=== PATIENT | male | born 1965 | race Two or more races ===

== ENCOUNTER 2016-07-15 04:29 | Inpatient (IN) | payer BC ==
[~2016-07-15] VITALS: Ht 170.2 cm; Wt 59.0 kg
[2016-07-15] MEDS ORDERED: DEXTROSE 50% 25 GM / 50ML DISP.SYRIN. IV ONE (05:15)
[2016-07-15 05:29] LABS: BASO % 1 % (0-3); EOS % 4 % (0-3); HEMATOCRIT 30.3 % (39.0-53.0); HEMOGLOBIN 10.6 g/dL (13.0-17.5); LYMPH # 1.5 x10^3/uL (1.0-4.8); LYMPH % 35 % (24-48); MEAN CORPUSCULAR HEMOGLOBIN 30 pg (25-35); MEAN CORPUSCULAR HGB CONC 35 g/dL (31-37); MEAN CORPUSCULAR VOLUME 87 fL (79-100); MONO % 12 % (0-9); NEUT % 49 % (31-73); PLATELET COUNT 202 x10^3/uL (140-400); RED BLOOD COUNT 3.49 x10^6/uL (4.30-5.70); RED CELL DISTRIBUTION WIDTH 13.8 % (11.5-14.5); WHITE BLOOD COUNT 4.3 x10^3/uL (4.0-11.0)
[2016-07-15 05:41] LABS: CALCIUM 9.5 mg/dL (8.5-10.1); CREATININE 2.8 mg/dL (0.7-1.3); GFR 24.2; POTASSIUM 3.8 mmol/L (3.5-5.1)
--- NOTE | 2016-07-15 05:44 | RAD ---
INDICATION: Headache COMPARISON: None TECHNIQUE: Axial CT images obtained through the head. One or more of the following individualized dose reduction techniques were utilized for this examination: 1. Automated exposure control; 2. Adjustment of the mA and/or kV according to patient size; 3. Use of iterative reconstruction technique. FINDINGS: No midline shift. Ventricles and sulci within normal limits in size for the patients age. Basilar cistern patent. No gross hemorrhage or intracranial mass. No displaced skull fracture. Postoperative changes to the left orbital region with postoperative appearance of the globe. IMPRESSION: No acute intracranial hemorrhage. Partial opacification of mastoid air cells. Postoperative appearance of the left orbital region. Electronically signed by: Marvin King (Jul 15, 2016 05:42:35)
[2016-07-15 05:47] LABS: ALBUMIN 3.7 g/dL (3.4-5.0); ALBUMIN/GLOBULIN RATIO 0.7 (1.0-1.7); TOTAL BILIRUBIN 0.4 mg/dL (0.2-1.0); TOTAL PROTEIN 9.2 g/dL (6.4-8.2)
[2016-07-15] MEDS ORDERED: ONDANSETRON PF 4 MG/2 ML VIAL. IV ONE (06:00)
[2016-07-15] MEDS ORDERED: IV NORMAL SALINE 1000ML BAG 1,000 ML IV ONE (06:00)
[2016-07-15] MEDS ORDERED: CLONIDINE HCL 0.1 MG TABLET PO ONE (06:00)
[2016-07-15] MEDS ORDERED: HYDROMORPHONE 2 MG/ML VIAL. IV ONE (06:00)
--- NOTE | 2016-07-15 06:38 | PHYS DOC ---
Past Medical History Past Medical History: Diabetes-Type I, Hypertension, Renal Failure Past Surgical History: Other Additional Past Surgical Histo: KIDNEY TRANSPLANT, DIALYSIS CATHETER, DOUBLE BKA Alcohol Use: None Drug Use: None Adult General Chief Complaint Chief Complaint: HEADACHE HPI HPI Patient is a 51 year old gentleman with a history significant for coronary artery disease, hypertension, diabetes, end-stage renal disease, status post renal transplant who presents to the ER today complaining of waking up with a severe headache prior to arrival with a low blood sugar. Patient reports he is a insulin-dependent diabetic and has a insulin pump on. Patient reports that the pain is isolated to the left side of his head only. Patient reports that he' s had headaches in the past however never ones that are isolated only to his left side. Patient denies any double vision or blurred vision. 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 Patient denies any fevers shakes chills cough or URI symptoms. Patient denies any diarrhea. Patient has any chest pain or shortness of breath. Patient has any abdominal pain. Patient denies any dysuria frequency or urgency. Patient reports she's had nausea vomiting 15 and last day. Patient reports prior to going to sleep last night his blood pressure 138/84. Patient's blood pressure today upon arrival was 210/104. Upon my evaluation of the patient's blood pressure was 226/104. Patient reports that he's recently had deterioration of his transplanted kidney and he currently goes to dialysis every Sunday. Patient's physical exam and the ER was remarkable for discomfort to palpation to his left scalp. Patient's right eye revealed no funduscopic abnormalities. She had a left prosthetic eye. Patient's blood pressure was 226/104. Patient's lungs were clear. There is no wheezing rales or rhonchi. Patient's heart exam is regular rate. Patient had no peripheral edema. Patient's abdomen was soft nontender no rebound or guarding. Patient's ER hospital course was significant for getting a CT scan of his head pressure that show any acute pathology. Patient's labs were all within normal limits. Patient does have an elevated BUN/creatinine however this appears to be his new baseline. Patient was given Dilaudid and Zofran in the ER as well as clonidine 0.1 mg by mouth. Given the patient's severely elevated blood pressure and his renal transplant history as well as his headache patient will be admitted to the hospital for further evaluation. Patient will need further control of his blood pressure in the hospital. Options were discussed with the family as well as the patient and they're in complete agreement with the current plan to be admitted. I discussed the case with Dr. Pop who is agreeing to admit the patient for further evaluation and management of his hypertension and headache. Review of Systems Review of Systems Constitutional: Denies fever or chills [] Eyes: Denies change in visual acuity, redness, or eye pain [] Acosta other REVIEW of systems are negative except as documented in the history of present illness portion. Current Medications Current Medications Current Medications Medications (Trade) Dose Ordered Sig/Penelope Start Time Stop Time Status Last Admin Dose Admin Clonidine HCl (Catapres) 0.1 mg 1X ONCE 07/15/16 06:00 07/15/16 06:01 DC 07/15/16 05:59 0.1 MG Dextrose (Dextrose 50%-Water Syringe) 25 gm 1X ONCE 07/15/16 05:15 07/15/16 05:22 DC 07/15/16 05:15 25 GM Hydromorphone HCl 1 mg 1 mg 1X ONCE 07/15/16 06:00 07/15/16 06:01 DC 07/15/16 05:58 1 MG Ondansetron HCl (Zofran) 4 mg 1X ONCE 07/15/16 06:00 07/15/16 06:01 DC 07/15/16 05:58 4 MG Sodium Chloride (Iv Sodium Chloride 0.9% 1000ml Bag) 1,000 ml @ 1,000 mls/hr 1X ONCE 07/15/16 06:00 07/15/16 06:59 07/15/16 05:57 1,000 MLS/HR Allergies Allergies Allergies Coded Allergies Type Severity Reaction Last Updated Verified amoxicillin Allergy Intermediate 07/15/16 Yes latex Allergy Intermediate 07/15/16 Yes promethazine Allergy Intermediate 07/15/16 Yes succinylcholine Allergy Intermediate 07/15/16 Yes Physical Exam Physical Exam Constitutional: Well developed, well nourished, no acute distress, non-toxic appearance. [] HENT: Normocephalic, atraumatic, bilateral external ears normal, oropharynx moist, no oral exudates, nose normal. [] Cardiovascular:Heart rate regular rhythm, Lungs & Thorax: Bilateral breath sounds clear to auscultation [] Abdomen: Bowel sounds normal, soft, no tenderness, no masses, no pulsatile masses. [] Skin: Warm, dry, no erythema, no rash. [] Back: No tenderness, no CVA tenderness. [] Extremities: No tenderness, no cyanosis, no clubbing, ROM intact, no edema. [] Neurologic: Alert and oriented X 3, normal motor function, normal sensory function, no focal deficits noted. [] Psychologic: Affect normal, judgement normal, mood normal. [] Current Patient Data Vital Signs Vital Signs Date Time Temp Pulse Resp B/P Pulse Ox O2 Delivery O2 Flow Rate FiO2 07/15/16 05:59 83 226/104 07/15/16 04:53 97.1 20 100 Room Air 97.1 Lab Values Laboratory Tests Test 07/15/16 04:58 07/15/16 05:07 Glucose (Fingerstick) 69mg/dL (70-99) L White Blood Count 4.3x10^3/uL (4.0-11.0) Red Blood Count 3.49x10^6/uL (4.30-5.70) L Hemoglobin 10.6g/dL (13.0-17.5) L Hematocrit 30.3% (39.0-53.0) L Mean Corpuscular Volume 87fL (79-100) Mean Corpuscular Hemoglobin 30pg (25-35) Mean Corpuscular Hemoglobin Concent 35g/dL (31-37) Red Cell Distribution Width 13.8% (11.5-14.5) Platelet Count 202x10^3/uL (140-400) Neutrophils (%) (Auto) 49% (31-73) Lymphocytes (%) (Auto) 35% (24-48) Monocytes (%) (Auto) 12% (0-9) H Eosinophils (%) (Auto) 4% (0-3) H Basophils (%) (Auto) 1% (0-3) Neutrophils # (Auto) 2.1x10^3uL (1.8-7.7) Lymphocytes # (Auto) 1.5x10^3/uL (1.0-4.8) Monocytes # (Auto) 0.5x10^3/uL (0.0-1.1) Eosinophils # (Auto) 0.2x10^3/uL (0.0-0.7) Basophils # (Auto) 0.0x10^3/uL (0.0-0.2) Sodium Level 136mmol/L (136-145) Potassium Level 3.8mmol/L (3.5-5.1) Chloride Level 97mmol/L (98-107) L Carbon Dioxide Level 30mmol/L (21-32) Anion Gap 9 (6-14) Blood Urea Nitrogen 39mg/dL (8-26) H Creatinine 2.8mg/dL (0.7-1.3) H Estimated GFR (Cockcroft-Gault) 24.2 BUN/Creatinine Ratio 14 (6-20) Glucose Level 78mg/dL (70-99) Calcium Level 9.5mg/dL (8.5-10.1) Total Bilirubin 0.4mg/dL (0.2-1.0) Aspartate Amino Transferase (AST) 17U/L (15-37) Alanine Aminotransferase (ALT) 19U/L (16-63) Alkaline Phosphatase 199U/L (46-116) H Total Protein 9.2g/dL (6.4-8.2) H Albumin 3.7g/dL (3.4-5.0) Albumin/Globulin Ratio 0.7 (1.0-1.7) L Laboratory Tests 07/15/16 05:07 Laboratory Tests 07/15/16 05:07 EKG EKG [] Radiology/Procedures Radiology/Procedures [] Course & Med Decision Making Course & Med Decision Making Pertinent Labs and Imaging studies reviewed. (See chart for details) [] Dragon Disclaimer Dragon Disclaimer This electronic medical record was generated, in whole or in part, using a voice recognition dictation system. Departure Departure Impression: Primary Impression: Hypertension Additional Impressions: Renal failure Headache Hypoglycemia Disposition: 09 ADMITTED INPATIENT Admitting Physician: Other (reusch) Condition: GUARDED Referrals: UNKNOWN PCP NAME (PCP) Problem Qualifiers LILIA VERGARA MD Jul 15, 2016 06:38
[2016-07-15] MEDS ORDERED: ONDANSETRON PF 4 MG/2 ML VIAL. IV PRN (06:45)
[2016-07-15] MEDS ORDERED: ACETAMINOPHEN 325 MG TABLET. PO PRN (06:45)
[2016-07-15] MEDS: MORPHINE SULFATE 4 MG/ML DISP.SYRIN. IV PRN ×2 (08:40→10:33)
[2016-07-15 09:44] VITALS: BP 183/86
[2016-07-15 09:48] VITALS: BP 186/58
[2016-07-15] MEDS ORDERED: PANT20TA3 PO (10:41)
[2016-07-15] MEDS ORDERED: CARV25TA2 PO ×2 (10:41)
[2016-07-15] MEDS ORDERED: HYDR12.53 PO (10:41)
[2016-07-15] MEDS ORDERED: MYCO250C PO (10:41)
[2016-07-15] MEDS ORDERED: TACR1CAP4 PO (10:41)
[2016-07-15] MEDS ORDERED: CLON0.2T PO (10:53)
--- NOTE | 2016-07-15 11:12 | ACF ---
Admit Criteria Forms Admit Criteria Forms Admit Criteria Forms HYPERTENSION Clinical Indications for Admission to Inpatient Care ( Place "X" for any and all applicable criteria): Admission is indicated for ANY ONE of the following(1)(2)(3)(4): [ ]I. Hypertensive emergency, with evidence of acute and progressing target organ disease as indicated by ANY ONE of the following: [ ]a) Hypertensive encephalopathy (eg, confusion, altered mental status) [ ]b) Cerebral infarction [ ]c) Intracranial hemorrhage [ ]d) Myocardial ischemia or infarction [ ]e) Pulmonary edema [ ]f) Aortic dissection [ ]g) Seizure [ ]h) Acute renal insufficiency [ ]i) Papilledema [ ]j) Microangiopathic hemolytic anemia [ ]II. Adrenergic crisis (eg, severe hypertension due to pheochromocytoma crisis, cocaine or amphetamine intoxication, or clonidine withdrawal) [X]III. Severe hypertension (SBP greater than 180 mmHg or DBP greater than 110 mmHg or greater than the 95th percentile for age, gender, and height in pediatric patients) that cannot be controlled (eg, to SBP less than 160 mmHg and DBP less than 100 mmHg in adults) by treatment with oral medication in emergency department or observation care Extended stay beyond goal length of stay may be needed for(11)(12)(13): [ ]a) Persistent hypertensive encephalopathy [ ]b) Continuation of pulmonary edema [ ]c) Recurring or persistent severe hypertension [ ]d) Target organ damage (eg, angina, stroke, aortic dissection) [ ]e) Associated renal insufficiency The original [employer] content created by [employer] has been revised. The portions of the content which have been revised are identified through the use of italic text or in bold, and [facility] has neither reviewed nor approved the modified material. All other unmodified content is copyright [employer]. Please see references footnoted in the original [employer] edition 2016 JARVIS MASON Jul 15, 2016 11:12
[2016-07-15 11:19] VITALS: BP 149/82
[2016-07-15] MEDS ORDERED: CLOP75TA PO (11:52)
--- NOTE | 2016-07-15 12:23 | EKG ---
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
[2016-07-15] MEDS ORDERED: OXYCODONE/APAP 5/325 TABLET. PO PRN (14:15)
[2016-07-15] MEDS ORDERED: AMLODIPINE BESYLATE 5 MG TABLET. PO SCH (14:15)
[2016-07-15] MEDS ORDERED: CLONIDINE TTS-3 PATCH. TD SCH (14:15)
[2016-07-15] MEDS ORDERED: OXYC1TAB7 PO (14:51)
[2016-07-15] MEDS ORDERED: AMLO10TA4 PO (14:51)
[2016-07-15] MEDS ORDERED: CLON1PAT3 TD (14:51)
[2016-07-15 15:00] VITALS: BP 165/72
[2016-07-15 15:19] VITALS: BP 165/72
--- NOTE | 2016-07-16 09:42 | CONS ---
DATE OF CONSULTATION: REQUESTING PHYSICIAN: Hospitalist. REASON FOR CONSULTATION: Renal failure. HISTORY OF PRESENT ILLNESS: This 51-year-old gentleman with history of diabetes mellitus, hypertension, and chronic kidney disease. The patient is status post renal transplantation. He did however develop acute renal failure and has been dialysis dependent. He has been showing signs of recovering with plans for further evaluation of the same. The patient presented to the hospital with increasing headache and found to have blood pressure of 210/104. He is admitted for further evaluation and management. PAST MEDICAL HISTORY: Diabetes mellitus, hypertension, kidney transplantation. ALLERGIES: AMOXICILLIN, LATEX, PROMETHAZINE, ____. MEDICATIONS: Noted. FAMILY HISTORY: Noncontributory. SOCIAL HISTORY: The patient resides with assistance. REVIEW OF SYSTEMS: No headaches, sinus problem, nasal drainage, epistaxis, change in vision or hearing, difficulty swallowing. No fever, chills, cough, sputum production, or hemoptysis. No chest pain, shortness of breath, PND, orthopnea, dyspnea on exertion. No abdominal pain or upper or lower gastrointestinal blood loss. No nausea, vomiting, diarrhea, seizures or malignancies. Bilateral lower extremity amputations. PHYSICAL EXAMINATION: GENERAL: The patient awake, conversant. HEENT: Clear other than reduced visual acuity. NECK: No increased JVD. No thyromegaly, mass or adenopathy. LUNGS: Clear. CARDIAC: Without S3 or rub. ABDOMEN: Soft, nontender, no bruits. EXTREMITIES: Bilateral lower extremity amputations. NEUROPSYCHIATRIC: Good attention to detail, appropriate affect. LABORATORY DATA: Potassium 3.8, CO2 of 30, creatinine 2.8, GFR 24. Hemoglobin 10.6, hematocrit 30, white count 43. IMPRESSION: 1. Chronic kidney disease stage 4 secondary to diabetic nephropathy. 2. Status post renal transplantation. 3. Status post recent acute renal failure with apparent improvement. RECOMMENDATIONS: 1. Hold on dialysis. 2. ____ creatinine clearance will be assessed beginning tomorrow morning. 3. Pending results of number 2. Further discussion and decision is to ongoing dialysis. VIRGINIA HUSTON MD DR: YOHAN/silviano JOB#: [id number] / [id number]
--- NOTE | 2016-07-17 00:15 | SSS ---
ADMIT DATE: 07/15/2016 CHIEF COMPLAINT: Headache. HISTORY OF PRESENT ILLNESS: The patient is a 51-year-old gentleman with significant past medical history including CAD, hypertension, diabetes, end-stage renal disease status post transplant, who presented to the Emergency Room with severe headache. He also was noted to have low blood sugar. He manages his diabetes with insulin pump. He described the headache as left-sided, starting in the back of his neck and reaching all the way to his spiritism. He also had neck pain on the left, associated with this. No medications he took at home seemed to help. He was therefore admitted for further evaluation. PAST MEDICAL HISTORY: Diabetes type 1, hypertension, end-stage renal disease, status post transplant in 2009, had recent infections with hospitalization for 1 month and worsening kidney functions, has been on dialysis since, double BKA, left eye blindness, artificial eye. FAMILY HISTORY: No other family members known with kidney disease. Positive diabetes. SOCIAL HISTORY: Lives by himself. Denies any toxic habits. ALLERGIES: AMOXICILLIN, LATEX, PROMETHAZINE and SUCCINYLCHOLINE. MEDICATIONS: MAR reconciled with home medications. REVIEW OF SYSTEMS: Headache seems somewhat improved with narcotics from the Emergency Room. Feels much better. Denies any nausea, vomiting. Denies any dysuria, abdominal pain, or diarrhea. Rest of organ system review is negative. PHYSICAL EXAMINATION: VITAL SIGNS: Showed a blood pressure of 149/82, heart rate of 85, respiratory rate at 18. He is afebrile. GENERAL: This is a 51-year-old well-nourished gentleman, alert and oriented, in no acute distress. HEENT: Shows no scleral icterus, false left eyeball. Oral mucosa is pink and moist. NECK: Supple. Tenderness to palpation over the trapezius origin and the entire muscle on the left. LUNGS: Clear to auscultation bilaterally. HEART: Regular rate and rhythm. ABDOMEN: Positive bowel sounds, kidneys palpable bilaterally in the pelvis. EXTREMITIES: Show BKA bilaterally. LABORATORY DATA: CBC with a WBC of 4.3, hemoglobin 10.6, platelets of 202. Chemistries with a BUN and creatinine of 39 and 2.8, glucose is ranging from 69-394. LFTs with an alkaline phosphatase at 199, total protein 9.2, albumin of 3.7. IMAGING STUDIES: CT of the head did not show any acute abnormality. HOSPITAL COURSE: The patient was admitted for further management. His pain actually has significantly improved. The type of pain was most consistent with stress-induced headache, although somewhat unusual to be unilateral. Advised him to take Tylenol p.r.n. Lortab were made available for him as well for severe pain. Heat and neck exercises should help prevent further episodes. The patient was ready for discharge on 07/16. DISCHARGE DATE: 07/16. DISCHARGE DISPOSITION: To home. DISCHARGE CONDITION: Improved. DISCHARGE DIAGNOSIS: Stress headache. DISCHARGE MEDICATIONS: Please refer to MAR. DISCHARGE INSTRUCTIONS: The patient will follow up with dialysis as previously arranged and see his primary care physician in 1-2 weeks. ALTAGRACIA CLANCY MD DR: UR/nts JOB#: [id number] / [id number]
== END 2016-07-15 17:50 | disposition home or self-care (01) | DRG 102 ==
LOC: ER 04:29 → 2 NORTH 06:31
PROVIDERS: ADMIT Internal Medicine Hematology & Oncology; ATTEND Internal Medicine Hematology & Oncology
DX: G44.209 Tension-type headache, unspecified, not intractable (principal); N18.6 End stage renal disease; I12.0 Hypertensive chronic kidney disease with stage 5 chronic kidney disease or end stage renal disease; N17.9 Acute kidney failure, unspecified; H33.20 Serous retinal detachment, unspecified eye; Z94.0 Kidney transplant status; I25.10 Atherosclerotic heart disease of native coronary artery without angina pectoris; E10.21 Type 1 diabetes mellitus with diabetic nephropathy; E10.22 Type 1 diabetes mellitus with diabetic chronic kidney disease; E10.649 Type 1 diabetes mellitus with hypoglycemia without coma; H54.42 Blindness, left eye, normal vision right eye; Z79.4 Long term (current) use of insulin; Z83.3 Family history of diabetes mellitus; Z89.519 Acquired absence of unspecified leg below knee; Z97.0 Presence of artificial eye; Z99.2 Dependence on renal dialysis
CPT/HCPCS: 36415; 70450; 80053; 82947; 85027; 93005; 96361; 96374; 96375; J1170; J2270; J2405; J7030; J7042; 99285-25

== ENCOUNTER 2018-01-23 16:57 | Inpatient (IN) | payer SELFPAY ==
[~2018-01-23] VITALS: Ht 170.2 cm; Wt 65.1 kg
[~2018-01-23 16:57] MED LIST: AMLO10TA4 PO; CARV25TA2 PO; CLON0.2T PO; CLON1PAT3 TD; CLOP75TA PO; HYDR12.53 PO; MYCO250C PO; OXYC1TAB7 PO; PANT20TA3 PO; TACR1CAP4 PO
[2018-01-23] MEDS ORDERED: IV NORMAL SALINE 1000ML BAG 1,000 ML IV SCH (17:21)
[2018-01-23] MEDS ORDERED: PROCHLORPERAZINE 10 MG/2 ML VIAL. IV ONE (17:30)
[2018-01-23] MEDS ORDERED: diphenhydrAMINE 50 MG/ML VIAL IVP ONE ×2 (17:30→19:15)
[2018-01-23 17:32] LABS: BASO % 1 % (0-3); EOS % 0 % (0-3); HEMATOCRIT 35.1 % (39.0-53.0); HEMOGLOBIN 12.5 g/dL (13.0-17.5); LYMPH # 0.7 x10^3/uL (1.0-4.8); LYMPH % 7 % (24-48); MEAN CORPUSCULAR HEMOGLOBIN 31 pg (25-35); MEAN CORPUSCULAR HGB CONC 36 g/dL (31-37); MEAN CORPUSCULAR VOLUME 88 fL (79-100); MONO # 0.4 x10^3/uL (0.0-1.1); MONO % 4 % (0-9); NEUT # 8.4 x10^3uL (1.8-7.7); NEUT % 88 % (31-73); PLATELET COUNT 266 x10^3/uL (140-400); RED BLOOD COUNT 4.01 x10^6/uL (4.30-5.70); WHITE BLOOD COUNT 9.6 x10^3/uL (4.0-11.0)
--- NOTE | 2018-01-23 17:38 | PHYS DOC ---
Past Medical History Past Medical History: Diabetes-Type I, Hypertension, Renal Failure Past Surgical History: Other Additional Past Surgical Histo: KIDNEY TRANSPLANT, DIALYSIS CATHETER, DOUBLE BKA Smoking: Cigarettes (The patient is a nonsmoker.) Alcohol Use: None Drug Use: None Adult General Chief Complaint Chief Complaint: NAUSEA/VOMITING/DIARRHA HPI HPI Patient is a 52-year-old male who presents to the emergency department for evaluation. He has a history of recurrent migraine headaches, stating he gets migraine headaches about every 6-8 months. He states he is usually treated at [facility]. He states he had the onset of a headache last Sunday, a week ago, and went to [facility]. He states he was hospitalized at that facility for intractable headache and intractable vomiting until yesterday when he went home. He states that when he left the hospital he felt better initially and had stopped vomiting but his headache returned and these had vomiting throughout the day today as well. He has not had any fevers or neck stiffness. He describes his headache is bitemporal, and pounding. He states the headache is exactly the same as his prior headaches, no different. He states he had a CAT scan while at [facility] and might of had an MRI and thinks he saw her neurologist but is uncertain exactly what medications they gave him there are what treatments or diagnostic testing he had. There are no alleviating or exacerbating factors to the patient's symptoms. Records from [facility] have been requested. Review of Systems Review of Systems Constitutional: Denies fever or chills [] Eyes: Denies change in visual acuity, redness, or eye pain [] HENT: Denies nasal congestion or sore throat [] Respiratory: Denies cough or shortness of breath [] Cardiovascular: The patient denies any shortness of breath, chest pain, palpitations, or orthopnea[] GI: Denies abdominal pain, hematemesis, diarrhea [] : Denies dysuria or hematuria [] Musculoskeletal: Denies back pain or joint pain [] Integument: Denies rash or skin lesions [] Neurologic: Denies mental status change, focal weakness or sensory changes [] Endocrine: Denies polyuria or polydipsia [] All other systems were reviewed and found to be within normal limits, except as documented in this note. Current Medications Current Medications Current Medications Medications (Trade) Dose Ordered Sig/Penelope Start Time Stop Time Status Last Admin Dose Admin Diphenhydramine HCl (Benadryl) 25 mg 1X ONCE 01/23/18 19:15 01/23/18 19:17 DC 01/23/18 19:25 25 MG Insulin Human Regular (HumuLIN R VIAL) 5 unit 1X ONCE 01/23/18 19:45 01/23/18 19:46 DC 01/23/18 19:55 5 UNIT Labetalol HCl (Normodyne Iv Push) 10 mg 1X ONCE 01/23/18 22:00 01/23/18 22:04 DC 01/23/18 22:29 10 MG Metoclopramide HCl (Reglan Vial) 10 mg 1X ONCE 01/23/18 19:15 01/23/18 19:17 DC 01/23/18 19:24 10 MG Metoprolol Tartrate (Lopressor Vial) 5 mg 1X ONCE 01/23/18 19:45 01/23/18 19:46 DC 01/23/18 19:55 5 MG Prochlorperazine Edisylate (Compazine) 10 mg 1X ONCE 01/23/18 17:30 01/23/18 17:31 DC 01/23/18 17:55 10 MG Sodium Chloride 1,000 ml @ 1,000 mls/hr Q1H 01/23/18 17:21 01/23/18 18:20 DC 01/23/18 17:54 1,000 MLS/HR Allergies Allergies Allergies Coded Allergies Type Severity Reaction Last Updated Verified amoxicillin Allergy Intermediate 07/15/16 Yes latex Allergy Intermediate 07/15/16 Yes promethazine Allergy Intermediate 07/15/16 Yes succinylcholine Allergy Intermediate 07/15/16 Yes Physical Exam Physical Exam PHYSICAL EXAM: CONSTITUTIONAL: Well developed, well nourished HEAD: normocephalic, atraumatic EENT: The left eye is prosthetic, the right eye has a round reactive pupil, extraocular movement is normal, Conjunctivae normal color, sclerae non-icteric; moist mucous membranes. NECK: Supple, non-tender; no meningismus. LUNGS: Lungs CTA, breathing even and unlabored. Normal air movement. HEART: Regular rate and rhythm, no murmur CHEST: No deformity; non-tender ABDOMEN: The abdomen is soft, and non-tender, no masses or bruits. EXTREM: Normal ROM; no deformity, no calf tenderness. Normal pulses palpable in all extremities. There are bilateral leg prostheses. SKIN: No rash; no diaphoresis NEURO: Alert; normal speech and cognition; CN's grossly intact; strength grossly intact without focal deficit. BACK: No CVA TTP. Current Patient Data Vital Signs Vital Signs Date Time Temp Pulse Resp B/P (MAP) Pulse Ox O2 Delivery O2 Flow Rate FiO2 01/23/18 22:29 109 228/93 01/23/18 21:00 18 99 01/23/18 17:10 98.7 Room Air 98.7 Lab Values Laboratory Tests Test 01/23/18 17:19 01/23/18 17:20 01/23/18 18:21 Glucose (Fingerstick) 310 mg/dL (70-99) H White Blood Count 9.6 x10^3/uL (4.0-11.0) Red Blood Count 4.01 x10^6/uL (4.30-5.70) L Hemoglobin 12.5 g/dL (13.0-17.5) L Hematocrit 35.1 % (39.0-53.0) L Mean Corpuscular Volume 88 fL (79-100) Mean Corpuscular Hemoglobin 31 pg (25-35) Mean Corpuscular Hemoglobin Concent 36 g/dL (31-37) Red Cell Distribution Width 13.0 % (11.5-14.5) Platelet Count 266 x10^3/uL (140-400) Neutrophils (%) (Auto) 88 % (31-73) H Lymphocytes (%) (Auto) 7 % (24-48) L Monocytes (%) (Auto) 4 % (0-9) Eosinophils (%) (Auto) 0 % (0-3) Basophils (%) (Auto) 1 % (0-3) Neutrophils # (Auto) 8.4 x10^3uL (1.8-7.7) H Lymphocytes # (Auto) 0.7 x10^3/uL (1.0-4.8) L Monocytes # (Auto) 0.4 x10^3/uL (0.0-1.1) Eosinophils # (Auto) 0.0 x10^3/uL (0.0-0.7) Basophils # (Auto) 0.0 x10^3/uL (0.0-0.2) Segmented Neutrophils % 83 % (35-66) H Lymphocytes % 13 % (24-48) L Monocytes % 3 % (0-10) Eosinophils % 1 % (0-5) Platelet Estimate Adequate (ADEQUATE) Sodium Level 137 mmol/L (136-145) Potassium Level 4.5 mmol/L (3.5-5.1) Chloride Level 99 mmol/L (98-107) Carbon Dioxide Level 17 mmol/L (21-32) L Anion Gap 21 (6-14) H Blood Urea Nitrogen 30 mg/dL (8-26) H Creatinine 2.3 mg/dL (0.7-1.3) H Estimated GFR (Cockcroft-Gault) 30.2 BUN/Creatinine Ratio 13 (6-20) Glucose Level 320 mg/dL (70-99) H Lactic Acid Level 0.7 mmol/L (0.4-2.0) Calcium Level 10.0 mg/dL (8.5-10.1) Phosphorus Level 3.8 mg/dL (2.6-4.7) Magnesium Level 1.7 mg/dL (1.8-2.4) L Total Bilirubin 0.4 mg/dL (0.2-1.0) Aspartate Amino Transferase (AST) 18 U/L (15-37) Alanine Aminotransferase (ALT) 17 U/L (16-63) Alkaline Phosphatase 122 U/L (46-116) H Total Protein 9.8 g/dL (6.4-8.2) H Albumin 3.5 g/dL (3.4-5.0) Albumin/Globulin Ratio 0.6 (1.0-1.7) L Acetone Level Sm pos (NEG) Influenza Type A Antigen Negative (NEGATIVE) Influenza Type B Antigen Negative (NEGATIVE) Laboratory Tests 01/23/18 17:20 Laboratory Tests 01/23/18 17:20 EKG EKG [] Radiology/Procedures Radiology/Procedures [] Course & Med Decision Making Course & Med Decision Making Pertinent Labs and Imaging studies reviewed. (See chart for details) [6:00 PM: The patient's condition remained stable. Records are still pending. [facility]. The patient does have some blood tests from this facility about a year ago, and he had a similar creatinine. Care will be turned over to Dr. Mercedes at shift change, pending reassessment of the patient's symptoms and comparison of his records from [facility], to help guide the need for further treatment or imaging, and disposition. Report given.] Dragon Disclaimer Dragon Disclaimer This electronic medical record was generated, in whole or in part, using a voice recognition dictation system. Departure Departure Impression: Primary Impression: Hypertensive urgency Additional Impressions: Migraine headache Intractable nausea and vomiting Disposition: ADMITTED INPATIENT Admitting Physician: Anne Irwin Condition: IMPROVED Referrals: UNKNOWN PCP NAME (PCP) Problem Qualifiers Additional Impressions: Migraine headache Migraine type: unspecified Status migrainosus presence: without status migrainosus Intractability: not intractable Qualified Codes: G43.909 - Migraine, unspecified, not intractable, without status migrainosus Intractable nausea and vomiting Vomiting type: unspecified Qualified Codes: R11.2 - Nausea with vomiting, unspecified DONNELL POLANCO MD Jan 23, 2018 17:38 DOMINIC MERCEDES Jr., DO Jan 23, 2018 22:31
[2018-01-23 17:43] LABS: CREATININE 2.3 mg/dL (0.7-1.3); GFR 30.2; POTASSIUM 4.5 mmol/L (3.5-5.1)
[2018-01-23 17:46] LABS: MAGNESIUM 1.7 mg/dL (1.8-2.4); PHOSPHORUS 3.8 mg/dL (2.6-4.7)
[2018-01-23 17:49] LABS: ALBUMIN 3.5 g/dL (3.4-5.0); ALBUMIN/GLOBULIN RATIO 0.6 (1.0-1.7); TOTAL BILIRUBIN 0.4 mg/dL (0.2-1.0); TOTAL PROTEIN 9.8 g/dL (6.4-8.2)
[2018-01-23 18:14] LABS: % EOS 1 % (0-5); % LYMPHS 13 % (24-48); % MONOS 3 % (0-10); % SEGS 83 % (35-66); PLT ESTIMATE ADEQUATE (ADEQUATE)
[2018-01-23 18:45] LABS: INFLUENZA A PATIENT NEGATIVE (NEGATIVE); INFLUENZA B PATIENT NEGATIVE (NEGATIVE)
[2018-01-23] MEDS ORDERED: METOCLOPRAMIDE HCL 10 MG/2 ML VIAL. IV ONE (19:15)
[2018-01-23] MEDS ORDERED: INSULIN REGULAR 100 UNIT/ML 3ML VIAL. IV ONE (19:45)
[2018-01-23] MEDS ORDERED: METOPROLOL TARTRATE 5 MG/5 ML VIAL. IVP ONE (19:45)
[2018-01-23] MEDS ORDERED: LABETALOL 20 MG/4 ML DISP.SYRIN. IVP ONE ×2 (20:30→22:00)
[2018-01-23] MEDS ORDERED: ONDANSETRON PF 4 MG/2 ML VIAL. IV PRN (22:45)
[2018-01-23] MEDS ORDERED: LABETALOL 20 MG/4 ML DISP.SYRIN. IVP PRN (22:45)
[2018-01-23 23:40] VITALS: BP 221/92
[2018-01-24] VITALS (35 sets, daily range): BP systolic 140–208; BP diastolic 57–88
[2018-01-24] MEDS: fentaNYL PF VIAL 100 MCG/2 ML VIAL IV PRN ×3 (00:16→19:48)
[2018-01-24] MEDS ORDERED: CLON0.2T PO (00:24)
[2018-01-24] MEDS ORDERED: AMLO5TAB7 PO (00:25)
[2018-01-24] MEDS ORDERED: CARVEDILOL 6.25 MG TABLET. PO ONE (00:45)
[2018-01-24] MEDS ORDERED: LABETALOL 20 MG/4 ML DISP.SYRIN. IVP PRN (00:45)
[2018-01-24] MEDS ORDERED: amLODIPine BESYLATE 5 MG TABLET PO ONE (00:45)
[2018-01-24] MEDS ORDERED: CARVEDILOL 12.5 MG TABLET. PO ONE (01:00)
[2018-01-24] MEDS: IV NORMAL SALINE 1000ML BAG 1,000 ML IV SCH ×3 (01:04→19:56)
[2018-01-24] MEDS: PROCHLORPERAZINE 10 MG/2 ML VIAL. IV PRN ×3 (03:13→19:47)
[2018-01-24] MEDS: METOCLOPRAMIDE HCL 10 MG/2 ML VIAL. IV PRN ×2 (03:14→12:00)
[2018-01-24] MEDS ORDERED: ACETAMINOPHEN 650 MG/20.3 ML SOLUTION. PEG PRN (03:15)
[2018-01-24] MEDS ORDERED: PANTOPRAZOLE 40 MG TABLET.DR. PO ONE (03:30)
[2018-01-24] MEDS ORDERED: INSU100I13 SQ ×2 (04:21)
[2018-01-24] MEDS ORDERED: INSULIN LISPRO 300 UNITS/3 ML INSULN.PEN. SQ ONE (05:00)
[2018-01-24] MEDS: ONDANSETRON PF 4 MG/2 ML VIAL. IV PRN ×3 (05:04→23:39)
[2018-01-24 06:30] LABS: BASO % 0 % (0-3); EOS % 0 % (0-3); HEMATOCRIT 32.1 % (39.0-53.0); LYMPH # 0.6 x10^3/uL (1.0-4.8); LYMPH % 9 % (24-48); MEAN CORPUSCULAR HEMOGLOBIN 30 pg (25-35); MEAN CORPUSCULAR HGB CONC 34 g/dL (31-37); MEAN CORPUSCULAR VOLUME 88 fL (79-100); MONO # 0.3 x10^3/uL (0.0-1.1); MONO % 5 % (0-9); NEUT # 6.3 x10^3uL (1.8-7.7); NEUT % 86 % (31-73); PLATELET COUNT 225 x10^3/uL (140-400); RED BLOOD COUNT 3.64 x10^6/uL (4.30-5.70); RED CELL DISTRIBUTION WIDTH 13.5 % (11.5-14.5); WHITE BLOOD COUNT 7.4 x10^3/uL (4.0-11.0)
[2018-01-24 06:55] LABS: ALBUMIN 3.2 g/dL (3.4-5.0); ALBUMIN/GLOBULIN RATIO 0.6 (1.0-1.7); CALCIUM 9.8 mg/dL (8.5-10.1); CREATININE 2.3 mg/dL (0.7-1.3); GFR 30.2; POTASSIUM 4.8 mmol/L (3.5-5.1); TOTAL BILIRUBIN 0.4 mg/dL (0.2-1.0); TOTAL PROTEIN 8.7 g/dL (6.4-8.2)
[2018-01-24 08:26] LABS: MAGNESIUM 1.7 mg/dL (1.8-2.4)
[2018-01-24 08:27] LABS: CHOLESTEROL/HDL RATIO 3.4
--- NOTE | 2018-01-24 09:05 | EKG ---
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
[2018-01-24] MEDS ORDERED: MAGNESIUM SULFATE 1GM 100 ML IV ONE (09:15)
[2018-01-24] MEDS: INSULIN LISPRO 300 UNITS/3 ML INSULN.PEN. SQ SCH ×3 (09:19→18:47)
--- NOTE | 2018-01-24 10:19 | PDOC2 ---
CARDIAC CONSULT DATE OF CONSULT Date of Consult DATE: 01/24/18 TIME: 09:47 REASON FOR CONSULT Reason for Consult: HTN REFERRING PHYSICIAN Referring Physician: Cecilia SOURCE Source: Chart review, Patient HISTORY OF PRESENT ILLNESS HISTORY OF PRESENT ILLNESS This is a 52 yo male admitted for complains of MARTÍNEZ and vomiting and high BP. Reports that he was at [facility] for a week and was released yesterday but his symptoms remains. He had neuro workup over there but not sure of any MRI. He said that he has been having migrain HAs and is persistent. He has been vomiting a lot and presently his BP remains labile as he has not taken his norvasc coreg and clonidine. Presently he is on cardene. He has had renal transplant twice and not in any dialysis. He is chronic immunosuppression. Denies any CP or SOA. Prior to his symptoms he has been able to ambulate with bilateral prothesis without difficulty. 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 He was not satisfied with the care he got at [facility] so he came here. Presently he remains to be retching and nasueated but his MARTÍNEZ is better. No fever or chills. PAST MEDICAL HISTORY Cardiovascular: CAD, HTN, Hyperlipidemia, Other (PAD) Pulmonary: No pertinent hx CENTRAL NERVOUS SYSTEM: Migraine GI: GERD Heme/Onc: Anemia NOS, Other (chronic immunosuppression) Psych: No pertinent hx Musculoskeletal: Osteoarthritis Infectious disease: No pertinent hx ENT: No pertinent hx Renal/: Chronic renal failure Endocrine: Diabetes (1) PAST SURGICAL HISTORY Past Surgical History: Other (renal transplant 2003 then failed then 2007; bilateral BKA due to DM and PAD) FAMILY HISTORY Family History: Heart Disease SOCIAL HISTORY Smoke: No ALCOHOL: none Drugs: None Lives: with Family CURRENT MEDICATIONS CURRENT MEDICATIONS Current Medications Medications (Trade) Dose Ordered Sig/Penelope Route PRN Reason Start Time Stop Time Status Last Admin Dose Admin Sodium Chloride 1,000 ml @ 1,000 mls/hr Q1H IV 01/23/18 17:21 01/23/18 18:20 DC 01/23/18 17:54 Prochlorperazine Edisylate (Compazine) 10 mg 1X ONCE IV 01/23/18 17:30 01/23/18 17:31 DC 01/23/18 17:55 Diphenhydramine HCl (Benadryl) 25 mg 1X ONCE IVP 01/23/18 17:30 01/23/18 17:31 DC 01/23/18 17:57 Metoclopramide HCl (Reglan Vial) 10 mg 1X ONCE IV 01/23/18 19:15 01/23/18 19:17 DC 01/23/18 19:24 Diphenhydramine HCl (Benadryl) 25 mg 1X ONCE IVP 01/23/18 19:15 01/23/18 19:17 DC 01/23/18 19:25 Metoprolol Tartrate (Lopressor Vial) 5 mg 1X ONCE IVP 01/23/18 19:45 01/23/18 19:46 DC 01/23/18 19:55 Insulin Human Regular (HumuLIN R VIAL) 5 unit 1X ONCE IV 01/23/18 19:45 01/23/18 19:46 DC 01/23/18 19:55 Labetalol HCl (Normodyne Iv Push) 10 mg 1X ONCE IVP 01/23/18 22:00 01/23/18 22:04 DC 01/23/18 22:29 Ondansetron HCl (Zofran) 4 mg PRN Q8HRS PRN IV NAUSEA/VOMITING 01/23/18 22:45 01/24/18 03:05 DC 01/24/18 00:16 Fentanyl Citrate (Fentanyl 2ml Vial) 50 mcg PRN Q2HR PRN IV PAIN 01/23/18 22:45 01/24/18 22:44 01/24/18 00:16 Sodium Chloride 1,000 ml @ 100 mls/hr Q10H IV 01/23/18 22:37 01/24/18 22:36 01/24/18 01:04 Labetalol HCl (Normodyne Iv Push) 10 mg PRN Q30MIN PRN IVP SBP>180 01/23/18 22:45 01/24/18 00:49 DC 01/24/18 00:07 Insulin Human Lispro (HumaLOG) 0-5 UNITS TIDWMEALS SQ 01/24/18 08:00 01/24/18 09:19 Labetalol HCl (Normodyne Iv Push) 20 mg PRN Q2HR PRN IVP HYPERTENSION, SEE COMMENTS 01/24/18 00:45 01/24/18 02:12 Amlodipine Besylate (Norvasc) 5 mg 1X ONCE PO 01/24/18 00:45 01/24/18 00:49 DC 01/24/18 01:00 Carvedilol (Coreg) 12.5 mg 1X ONCE PO 01/24/18 01:00 01/24/18 01:04 DC 01/24/18 01:05 Nicardipine HCl 50 mg/Sodium Chloride 270 ml @ 32.4 mls/hr CONT PRN IV SEE I/O RECORD 01/24/18 03:00 01/24/18 03:15 Ondansetron HCl (Zofran) 4 mg PRN Q6HRS PRN IV NAUSEA/VOMITING, 1ST CHOICE 01/24/18 03:15 01/24/18 05:04 Metoclopramide HCl (Reglan Vial) 5 mg PRN Q6HRS PRN IV NAUSEA/VOMITING, 3RD CHOICE 01/24/18 03:15 01/24/18 03:14 Prochlorperazine Edisylate (Compazine) 10 mg PRN Q6HRS PRN IV NAUSEA/VOMITING, 2ND CHOICE 01/24/18 03:15 01/24/18 09:09 Pantoprazole Sodium (Protonix) 40 mg 1X ONCE PO 01/24/18 03:30 01/24/18 03:31 DC 01/24/18 03:13 Insulin Human Lispro (HumaLOG) 10 units 1X ONCE SQ 01/24/18 05:00 01/24/18 05:02 DC 01/24/18 05:09 ALLERGIES ALLERGIES: Coded Allergies: amoxicillin (Verified Allergy, Intermediate, 07/15/16) latex (Verified Allergy, Intermediate, 07/15/16) promethazine (Verified Allergy, Intermediate, 01/24/18) Tolerates compazine succinylcholine (Verified Allergy, Intermediate, 07/15/16) ROS Review of System 14 point ROS evaluated with pertinent positives noted per HPI PHYSICAL EXAM General: Alert, Oriented X3, Cooperative, mild distress (retching) HEENT: Atraumatic, Mucous membr. moist/pink Lungs: Clear to auscultation, Normal air movement Heart: Regular rate (sinus tach), Other (S4; 2/6 systolic murmur to LLS border) Abdomen: Soft Extremities: No cyanosis, Other (bilateral BKA) Skin: No breakdown, No significant lesion Neuro: Normal speech, Sensation intact Psych/Mental Status: Mental status NL, Mood NL MUSCULOSKELETAL: Osteoarthritic changes both hands VITALS VITALS Vital Signs Date Time Temp Pulse Resp B/P (MAP) Pulse Ox O2 Delivery O2 Flow Rate FiO2 01/24/18 08:00 Room Air 01/24/18 07:00 98.8 76 20 174/76 (108) 97 98.8 LABS Lab: Laboratory Tests Test 01/23/18 17:19 01/23/18 17:20 01/23/18 18:21 01/23/18 23:19 Glucose (Fingerstick) 310 mg/dL (70-99) 135 mg/dL (70-99) White Blood Count 9.6 x10^3/uL (4.0-11.0) Red Blood Count 4.01 x10^6/uL (4.30-5.70) Hemoglobin 12.5 g/dL (13.0-17.5) Hematocrit 35.1 % (39.0-53.0) Mean Corpuscular Volume 88 fL (79-100) Mean Corpuscular Hemoglobin 31 pg (25-35) Mean Corpuscular Hemoglobin Concent 36 g/dL (31-37) Red Cell Distribution Width 13.0 % (11.5-14.5) Platelet Count 266 x10^3/uL (140-400) Neutrophils (%) (Auto) 88 % (31-73) Lymphocytes (%) (Auto) 7 % (24-48) Monocytes (%) (Auto) 4 % (0-9) Eosinophils (%) (Auto) 0 % (0-3) Basophils (%) (Auto) 1 % (0-3) Neutrophils # (Auto) 8.4 x10^3uL (1.8-7.7) Lymphocytes # (Auto) 0.7 x10^3/uL (1.0-4.8) Monocytes # (Auto) 0.4 x10^3/uL (0.0-1.1) Eosinophils # (Auto) 0.0 x10^3/uL (0.0-0.7) Basophils # (Auto) 0.0 x10^3/uL (0.0-0.2) Segmented Neutrophils % 83 % (35-66) Lymphocytes % 13 % (24-48) Monocytes % 3 % (0-10) Eosinophils % 1 % (0-5) Platelet Estimate Adequate (ADEQUATE) Sodium Level 137 mmol/L (136-145) Potassium Level 4.5 mmol/L (3.5-5.1) Chloride Level 99 mmol/L (98-107) Carbon Dioxide Level 17 mmol/L (21-32) Anion Gap 21 (6-14) Blood Urea Nitrogen 30 mg/dL (8-26) Creatinine 2.3 mg/dL (0.7-1.3) Estimated GFR (Cockcroft-Gault) 30.2 BUN/Creatinine Ratio 13 (6-20) Glucose Level 320 mg/dL (70-99) Lactic Acid Level 0.7 mmol/L (0.4-2.0) Calcium Level 10.0 mg/dL (8.5-10.1) Phosphorus Level 3.8 mg/dL (2.6-4.7) Magnesium Level 1.7 mg/dL (1.8-2.4) Total Bilirubin 0.4 mg/dL (0.2-1.0) Aspartate Amino Transf (AST/SGOT) 18 U/L (15-37) Alanine Aminotransferase (ALT/SGPT) 17 U/L (16-63) Alkaline Phosphatase 122 U/L (46-116) Total Protein 9.8 g/dL (6.4-8.2) Albumin 3.5 g/dL (3.4-5.0) Albumin/Globulin Ratio 0.6 (1.0-1.7) Acetone Level Sm pos (NEG) Influenza Type A Antigen Negative (NEGATIVE) Influenza Type B Antigen Negative (NEGATIVE) Test 01/24/18 04:05 01/24/18 05:25 01/24/18 08:00 01/24/18 08:02 Glucose (Fingerstick) 311 mg/dL (70-99) 251 mg/dL (70-99) White Blood Count 7.4 x10^3/uL (4.0-11.0) Red Blood Count 3.64 x10^6/uL (4.30-5.70) Hemoglobin 11.0 g/dL (13.0-17.5) Hematocrit 32.1 % (39.0-53.0) Mean Corpuscular Volume 88 fL (79-100) Mean Corpuscular Hemoglobin 30 pg (25-35) Mean Corpuscular Hemoglobin Concent 34 g/dL (31-37) Red Cell Distribution Width 13.5 % (11.5-14.5) Platelet Count 225 x10^3/uL (140-400) Neutrophils (%) (Auto) 86 % (31-73) Lymphocytes (%) (Auto) 9 % (24-48) Monocytes (%) (Auto) 5 % (0-9) Eosinophils (%) (Auto) 0 % (0-3) Basophils (%) (Auto) 0 % (0-3) Neutrophils # (Auto) 6.3 x10^3uL (1.8-7.7) Lymphocytes # (Auto) 0.6 x10^3/uL (1.0-4.8) Monocytes # (Auto) 0.3 x10^3/uL (0.0-1.1) Eosinophils # (Auto) 0.0 x10^3/uL (0.0-0.7) Basophils # (Auto) 0.0 x10^3/uL (0.0-0.2) Sodium Level 138 mmol/L (136-145) Potassium Level 4.8 mmol/L (3.5-5.1) Chloride Level 100 mmol/L (98-107) Carbon Dioxide Level 16 mmol/L (21-32) Anion Gap 22 (6-14) Blood Urea Nitrogen 31 mg/dL (8-26) Creatinine 2.3 mg/dL (0.7-1.3) Estimated GFR (Cockcroft-Gault) 30.2 BUN/Creatinine Ratio 13 (6-20) Glucose Level 350 mg/dL (70-99) Calcium Level 9.8 mg/dL (8.5-10.1) Total Bilirubin 0.4 mg/dL (0.2-1.0) Aspartate Amino Transf (AST/SGOT) 16 U/L (15-37) Alanine Aminotransferase (ALT/SGPT) 16 U/L (16-63) Alkaline Phosphatase 99 U/L (46-116) Total Protein 8.7 g/dL (6.4-8.2) Albumin 3.2 g/dL (3.4-5.0) Albumin/Globulin Ratio 0.6 (1.0-1.7) Magnesium Level 1.7 mg/dL (1.8-2.4) Triglycerides Level 129 mg/dL (0-150) Cholesterol Level 175 mg/dL (0-200) LDL Cholesterol, Calculated 97 mg/dL (0-100) VLDL Cholesterol, Calculated 26 mg/dL (0-40) Non-HDL Cholesterol Calculated 123 mg/dL (0-129) HDL Cholesterol 52 mg/dL (40-60) Cholesterol/HDL Ratio 3.4 Thyroid Stimulating Hormone (TSH) 3.222 uIU/mL (0.358-3.74) ASSESSMENT/PLAN ASSESSMENT/PLAN 1. Accelerated HTN: GI symptoms/MARTÍNEZ contributing 2. AMRTÍNEZ: migraine per pt. better today. Defer to PCP. Was placed on depakote and vistaril at [facility]. 3. Persistent vomiting: Gastroparesis? 4. JAMAL on CKD suspect stage 4? 5. Previous ESRD./renal transplant: 2003 and 2007 6. DM1/HLP: per PCP 7. CAD: 2008 PCI/stents x2. No cardiac symptoms but with persistent nausea. 8. Chronic immunosuppression Recommendations 1. Troponin, lipids 2. Nephrology following, IVF, GI consult pending 3. Recent neuro workup, obtain records at [facility] (was discharge yesterday) 4. Still has nausea and vomiting. EKG SR with LVH without significant changes by comparison. Will obtain TTE today. 5. Continue cardene and will add metoprolol IV. Will resume clonidine/norvasc/ coreg/ASA/lipitor once GI symptoms are better. 6. Will follow up in our office as outpt. MARLENE PHILLIPS APRN Jan 24, 2018 10:19
--- NOTE | 2018-01-24 10:56 | PDOC2 ---
GI CONSULT Reason For Consult: N/v HPI: HPI: 52 y/o male. Recent issues w/ migraines and vomiting, recently evaluated at [facility]. Had imaging of head. Tells me he was prescribed Depakote, amlodipine, and Benadryl. Indicates some symptom improvement but then recurrence yesterday morning. Hypertensive here - initial BP 215/102. Migraine has resolved but n/v persist. Called by RN earlier - emesis is dark, also threw up a big chunk of something. H/o GERD controlled w/ omeprazole QD. No dysphagia. Historically no chronic n/ v issues until recently. At first denies abd pain, but then says occasional RUQ discomfort - seems to occur randomly but would like his gallbladder checked. Denies diarrhea, constipation, hematochezia, and melena. Probably has lost some weight w/ recent sickness. The last thing he ate was a piece of salmon (?a couple days ago). No previous EGD. Colonoscopy @ [facility] on [facility] ~4 years ago , reportedly normal. Just did Cologuard test, no results yet. "They told me I' d need my gallbladder out eventually" - cannot recall specific gallbladder testing. No liver, pancreas, or PUD history. No NSAIDs. H/o CAD on Plavix. H /o anemia on PO iron. H/o DM type 1 - says last A1c ~8.1. Labs: Hgb 12.5 to 11 (for comparison was 10.6 in 2017), Cr 2.3, BUN 30, glucose >300, CO2 16, Alk Phos 122. No imaging. Cardiology follow - records requested, unable to do echo w/ vomiting. Neuro and renal consults pending. PMH: PMH: NC, CAD w/ stents, HTN, HLD, PAD, migraines, GERD, anemia, OA, CKD, DM (1), renal transplants/immunosuppression, bilateral BKA, ?left orbit surgery FH: Family History: No pertinent hx (denies GI cancers), CAD Social History: Smoke: No ALCOHOL: none Drugs: None ROS: GEN: Denies fevers, chills, sweats HEENT: Denies blurred vision, sore throat CV: Denies chest pain RESP: Denies shortness of air, cough GI: Per HPI : Denies hematuria, dysuria ENDO: ?weight loss NEURO: Denies confusion, dizziness MSK: +weakness SKIN: Denies jaundice, pruritus Vitals: Vitals: Vital Signs Date Time Temp Pulse Resp B/P (MAP) Pulse Ox O2 Delivery O2 Flow Rate FiO2 01/24/18 10:26 98.7 122 20 175/79 (111) 96 Room Air 98.7 Labs: Labs: Laboratory Tests Test 01/23/18 17:19 01/23/18 17:20 01/23/18 18:21 01/23/18 23:19 Glucose (Fingerstick) 310 mg/dL (70-99) 135 mg/dL (70-99) White Blood Count 9.6 x10^3/uL (4.0-11.0) Red Blood Count 4.01 x10^6/uL (4.30-5.70) Hemoglobin 12.5 g/dL (13.0-17.5) Hematocrit 35.1 % (39.0-53.0) Mean Corpuscular Volume 88 fL (79-100) Mean Corpuscular Hemoglobin 31 pg (25-35) Mean Corpuscular Hemoglobin Concent 36 g/dL (31-37) Red Cell Distribution Width 13.0 % (11.5-14.5) Platelet Count 266 x10^3/uL (140-400) Neutrophils (%) (Auto) 88 % (31-73) Lymphocytes (%) (Auto) 7 % (24-48) Monocytes (%) (Auto) 4 % (0-9) Eosinophils (%) (Auto) 0 % (0-3) Basophils (%) (Auto) 1 % (0-3) Neutrophils # (Auto) 8.4 x10^3uL (1.8-7.7) Lymphocytes # (Auto) 0.7 x10^3/uL (1.0-4.8) Monocytes # (Auto) 0.4 x10^3/uL (0.0-1.1) Eosinophils # (Auto) 0.0 x10^3/uL (0.0-0.7) Basophils # (Auto) 0.0 x10^3/uL (0.0-0.2) Segmented Neutrophils % 83 % (35-66) Lymphocytes % 13 % (24-48) Monocytes % 3 % (0-10) Eosinophils % 1 % (0-5) Platelet Estimate Adequate (ADEQUATE) Sodium Level 137 mmol/L (136-145) Potassium Level 4.5 mmol/L (3.5-5.1) Chloride Level 99 mmol/L (98-107) Carbon Dioxide Level 17 mmol/L (21-32) Anion Gap 21 (6-14) Blood Urea Nitrogen 30 mg/dL (8-26) Creatinine 2.3 mg/dL (0.7-1.3) Estimated GFR (Cockcroft-Gault) 30.2 BUN/Creatinine Ratio 13 (6-20) Glucose Level 320 mg/dL (70-99) Lactic Acid Level 0.7 mmol/L (0.4-2.0) Calcium Level 10.0 mg/dL (8.5-10.1) Phosphorus Level 3.8 mg/dL (2.6-4.7) Magnesium Level 1.7 mg/dL (1.8-2.4) Total Bilirubin 0.4 mg/dL (0.2-1.0) Aspartate Amino Transf (AST/SGOT) 18 U/L (15-37) Alanine Aminotransferase (ALT/SGPT) 17 U/L (16-63) Alkaline Phosphatase 122 U/L (46-116) Total Protein 9.8 g/dL (6.4-8.2) Albumin 3.5 g/dL (3.4-5.0) Albumin/Globulin Ratio 0.6 (1.0-1.7) Acetone Level Sm pos (NEG) Influenza Type A Antigen Negative (NEGATIVE) Influenza Type B Antigen Negative (NEGATIVE) Test 01/24/18 04:05 01/24/18 05:25 01/24/18 08:00 01/24/18 08:02 Glucose (Fingerstick) 311 mg/dL (70-99) 251 mg/dL (70-99) White Blood Count 7.4 x10^3/uL (4.0-11.0) Red Blood Count 3.64 x10^6/uL (4.30-5.70) Hemoglobin 11.0 g/dL (13.0-17.5) Hematocrit 32.1 % (39.0-53.0) Mean Corpuscular Volume 88 fL (79-100) Mean Corpuscular Hemoglobin 30 pg (25-35) Mean Corpuscular Hemoglobin Concent 34 g/dL (31-37) Red Cell Distribution Width 13.5 % (11.5-14.5) Platelet Count 225 x10^3/uL (140-400) Neutrophils (%) (Auto) 86 % (31-73) Lymphocytes (%) (Auto) 9 % (24-48) Monocytes (%) (Auto) 5 % (0-9) Eosinophils (%) (Auto) 0 % (0-3) Basophils (%) (Auto) 0 % (0-3) Neutrophils # (Auto) 6.3 x10^3uL (1.8-7.7) Lymphocytes # (Auto) 0.6 x10^3/uL (1.0-4.8) Monocytes # (Auto) 0.3 x10^3/uL (0.0-1.1) Eosinophils # (Auto) 0.0 x10^3/uL (0.0-0.7) Basophils # (Auto) 0.0 x10^3/uL (0.0-0.2) Sodium Level 138 mmol/L (136-145) Potassium Level 4.8 mmol/L (3.5-5.1) Chloride Level 100 mmol/L (98-107) Carbon Dioxide Level 16 mmol/L (21-32) Anion Gap 22 (6-14) Blood Urea Nitrogen 31 mg/dL (8-26) Creatinine 2.3 mg/dL (0.7-1.3) Estimated GFR (Cockcroft-Gault) 30.2 BUN/Creatinine Ratio 13 (6-20) Glucose Level 350 mg/dL (70-99) Calcium Level 9.8 mg/dL (8.5-10.1) Total Bilirubin 0.4 mg/dL (0.2-1.0) Aspartate Amino Transf (AST/SGOT) 16 U/L (15-37) Alanine Aminotransferase (ALT/SGPT) 16 U/L (16-63) Alkaline Phosphatase 99 U/L (46-116) Total Protein 8.7 g/dL (6.4-8.2) Albumin 3.2 g/dL (3.4-5.0) Albumin/Globulin Ratio 0.6 (1.0-1.7) Magnesium Level 1.7 mg/dL (1.8-2.4) Troponin I Quantitative 0.019 ng/mL (0.000-0.055) Triglycerides Level 129 mg/dL (0-150) Cholesterol Level 175 mg/dL (0-200) LDL Cholesterol, Calculated 97 mg/dL (0-100) VLDL Cholesterol, Calculated 26 mg/dL (0-40) Non-HDL Cholesterol Calculated 123 mg/dL (0-129) HDL Cholesterol 52 mg/dL (40-60) Cholesterol/HDL Ratio 3.4 Thyroid Stimulating Hormone (TSH) 3.222 uIU/mL (0.358-3.74) Allergies: Coded Allergies: amoxicillin (Verified Allergy, Intermediate, 07/15/16) latex (Verified Allergy, Intermediate, 07/15/16) promethazine (Verified Allergy, Intermediate, 01/24/18) Tolerates compazine succinylcholine (Verified Allergy, Intermediate, 07/15/16) Medications: Current Medications Medications (Trade) Dose Ordered Sig/Penelope Route PRN Reason Start Time Stop Time Status Last Admin Dose Admin Sodium Chloride 1,000 ml @ 1,000 mls/hr Q1H IV 01/23/18 17:21 01/23/18 18:20 DC 01/23/18 17:54 Prochlorperazine Edisylate (Compazine) 10 mg 1X ONCE IV 01/23/18 17:30 01/23/18 17:31 DC 01/23/18 17:55 Diphenhydramine HCl (Benadryl) 25 mg 1X ONCE IVP 01/23/18 17:30 01/23/18 17:31 DC 01/23/18 17:57 Metoclopramide HCl (Reglan Vial) 10 mg 1X ONCE IV 01/23/18 19:15 01/23/18 19:17 DC 01/23/18 19:24 Diphenhydramine HCl (Benadryl) 25 mg 1X ONCE IVP 01/23/18 19:15 01/23/18 19:17 DC 01/23/18 19:25 Metoprolol Tartrate (Lopressor Vial) 5 mg 1X ONCE IVP 01/23/18 19:45 01/23/18 19:46 DC 01/23/18 19:55 Insulin Human Regular (HumuLIN R VIAL) 5 unit 1X ONCE IV 01/23/18 19:45 01/23/18 19:46 DC 01/23/18 19:55 Labetalol HCl (Normodyne Iv Push) 10 mg 1X ONCE IVP 01/23/18 22:00 01/23/18 22:04 DC 01/23/18 22:29 Ondansetron HCl (Zofran) 4 mg PRN Q8HRS PRN IV NAUSEA/VOMITING 01/23/18 22:45 01/24/18 03:05 DC 01/24/18 00:16 Fentanyl Citrate (Fentanyl 2ml Vial) 50 mcg PRN Q2HR PRN IV PAIN 01/23/18 22:45 01/24/18 22:44 01/24/18 00:16 Sodium Chloride 1,000 ml @ 100 mls/hr Q10H IV 01/23/18 22:37 01/24/18 22:36 01/24/18 01:04 Labetalol HCl (Normodyne Iv Push) 10 mg PRN Q30MIN PRN IVP SBP>180 01/23/18 22:45 01/24/18 00:49 DC 01/24/18 00:07 Insulin Human Lispro (HumaLOG) 0-5 UNITS TIDWMEALS SQ 01/24/18 08:00 01/24/18 09:19 Labetalol HCl (Normodyne Iv Push) 20 mg PRN Q2HR PRN IVP HYPERTENSION, SEE COMMENTS 01/24/18 00:45 01/24/18 02:12 Amlodipine Besylate (Norvasc) 5 mg 1X ONCE PO 01/24/18 00:45 01/24/18 00:49 DC 01/24/18 01:00 Carvedilol (Coreg) 12.5 mg 1X ONCE PO 01/24/18 01:00 01/24/18 01:04 DC 01/24/18 01:05 Nicardipine HCl 50 mg/Sodium Chloride 270 ml @ 32.4 mls/hr CONT PRN IV SEE I/O RECORD 01/24/18 03:00 01/24/18 03:15 Ondansetron HCl (Zofran) 4 mg PRN Q6HRS PRN IV NAUSEA/VOMITING, 1ST CHOICE 01/24/18 03:15 01/24/18 05:04 Metoclopramide HCl (Reglan Vial) 5 mg PRN Q6HRS PRN IV NAUSEA/VOMITING, 3RD CHOICE 01/24/18 03:15 01/24/18 03:14 Prochlorperazine Edisylate (Compazine) 10 mg PRN Q6HRS PRN IV NAUSEA/VOMITING, 2ND CHOICE 01/24/18 03:15 01/24/18 09:09 Pantoprazole Sodium (Protonix) 40 mg 1X ONCE PO 01/24/18 03:30 01/24/18 03:31 DC 01/24/18 03:13 Insulin Human Lispro (HumaLOG) 10 units 1X ONCE SQ 01/24/18 05:00 01/24/18 05:02 DC 01/24/18 05:09 Imaging: Imaging: - PE: GEN: looks ill, emesis basin w/ dark brown liquid, specimen cup with round chunk of ?pinkish food HEENT: Atraumatic, PERRL LUNGS: clear anteriorly, room air HEART: tachycardic ABD: quiet, non-tender, non-distended EXTREMITY: bilateral BKA SKIN: No rashes, no jaundice NEURO/PSYCH: A & O 3 A/P: A/P: HTN, migraine (better) DM type 1, CKD w/ h/o renal transplants, CAD on Plavix N/v - recent onset/recurrence GERD - on PPI, no previous EGD CRC screen - reports normal colonoscopy ~4 years ago ?GB disease Anemia -- Reviewed w/ Dr. Burch - check CT A/P. N/v likely related to HTN, migraines, and DM/?gastroparesis. Has PO PPI ordered - would change back to IV for now. On Compazine, Reglan, and Zofran (w/ allergy to promethazine) - ongoing n/v. ELIOT LAMB Jan 24, 2018 10:56
[2018-01-24] MEDS ORDERED: TRIMETHOBENZAMIDE IM 200 MG/2 ML VIAL. IM PRN (11:00)
[2018-01-24] MEDS: cloNIDine HCL 0.2 MG TABLET PO SCH ×2 (11:30→20:19)
[2018-01-24] MEDS ORDERED: PANTOPRAZOLE 40 MG TABLET.DR. PO SCH (11:30)
[2018-01-24] MEDS ORDERED: INSULIN GLARGINE 300 UNITS/3 ML INSULN.PEN. SQ SCH ×2 (11:30→21:00)
[2018-01-24] MEDS: amLODIPine BESYLATE 5 MG TABLET PO SCH (11:30)
--- NOTE | 2018-01-24 11:52 | PDOC2 ---
CONSULT Date of Consult Date of Consult DATE: 01/24/18 TIME: 11:41 Reason for Consult Reason for Consult: JAMAL Referring Physician Referring Physician: KIMI Identification/Chief Complaint Chief Complaint MARTÍNEZ WITH N/V Source Source: Chart review, Patient History of Present Illness Reason for Visit: THIS IS A 52 YR OLD WITH AT LEAST A ONE WK HX OF N/V AND HEADACHES. WENT TO [facility] AND WAS EVALUATED AND APPARENTLY SPENT A WEEK THERE BUT STILL NOT BETTER. HX NOTABLE FOR RENAL TX - FIRST IN 1993 AND SUBSEQUENTLY IN 2007. BASELINE CR OF ABOUT 1.5-1.7. CR NOW UP TO 2.8. HAS NOT BEEN ABLE TO KEEP ANYTHING DOWN. 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 HAS BEEN GOING TO [facility] DUE TO LACK OF INSURANCE. NO NEPHROTOXINS NOTED. HAS BEEN ON CELLCEPT AND PROGRAF FOR IMMUNOSUPPRESSION. 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) Family History Family History: Heart Disease Social History No ALCOHOL: none Drugs: None Lives: with Family Current Problem List Problem List Problems Medical Problems: (1) Hypertensive urgency Status: Acute (2) Intractable nausea and vomiting Status: Acute (3) Migraine headache Status: Acute Current Medications Current Medications Current Medications Sodium Chloride 1,000 ml @ 1,000 mls/hr Q1H IV Last administered on at 17:54; Start 01/23/18 at 17:21; Stop 01/23/18 at 18:20; Status DC Prochlorperazine Edisylate (Compazine) 10 mg 1X ONCE IV Last administered on 01/23/18at 17:55; Start 01/23/18 at 17:30; Stop 01/23/18 at 17:31; Status DC Diphenhydramine HCl (Benadryl) 25 mg 1X ONCE IVP Last administered on at 17:57; Start 01/23/18 at 17:30; Stop 01/23/18 at 17:31; Status DC Metoclopramide HCl (Reglan Vial) 10 mg 1X ONCE IV Last administered on at 19:24; Start 01/23/18 at 19:15; Stop 01/23/18 at 19:17; Status DC Diphenhydramine HCl (Benadryl) 25 mg 1X ONCE IVP Last administered on at 19:25; Start 01/23/18 at 19:15; Stop 01/23/18 at 19:17; Status DC Metoprolol Tartrate (Lopressor Vial) 5 mg 1X ONCE IVP Last administered on at 19:55; Start 01/23/18 at 19:45; Stop 01/23/18 at 19:46; Status DC Insulin Human Regular (HumuLIN R VIAL) 5 unit 1X ONCE IV Last administered on 01/23/18at 19:55; Start 01/23/18 at 19:45; Stop 01/23/18 at 19:46; Status DC Labetalol HCl (Normodyne Iv Push) 10 mg 1X ONCE IVP ; Start 01/23/18 at 20:30 ; Stop 01/23/18 at 20:31; Status DC Labetalol HCl (Normodyne Iv Push) 10 mg 1X ONCE IVP Last administered on 01/23at 22:29; Start 01/23/18 at 22:00; Stop 01/23/18 at 22:04; Status DC Ondansetron HCl (Zofran) 4 mg PRN Q8HRS PRN IV NAUSEA/VOMITING Last administered on 01/24/18at 00:16; Start 01/23/18 at 22:45; Stop 01/24/18 at 03 :05; Status DC Fentanyl Citrate (Fentanyl 2ml Vial) 50 mcg PRN Q2HR PRN IV PAIN Last administered on 01/24/18at 00:16; Start 01/23/18 at 22:45; Stop 01/24/18 at 22 :44 Sodium Chloride 1,000 ml @ 100 mls/hr Q10H IV Last administered on 01/24/18at 01:04; Start 01/23/18 at 22:37; Stop 01/24/18 at 22:36 Labetalol HCl (Normodyne Iv Push) 10 mg PRN Q30MIN PRN IVP SBP>180 Last administered on 01/24/18at 00:07; Start 01/23/18 at 22:45; Stop 01/24/18 at 00 :49; Status DC Insulin Human Lispro (HumaLOG) 0-5 UNITS TIDWMEALS SQ Last administered on at 09:19; Start 01/24/18 at 08:00 Dextrose (Dextrose 50%-Water Syringe) 12.5 gm PRN Q15MIN PRN IV SEE COMMENTS; Start 01/23/18 at 23:00 Labetalol HCl (Normodyne Iv Push) 20 mg PRN Q2HR PRN IVP HYPERTENSION, SEE COMMENTS Last administered on 01/24/18at 02:12; Start 01/24/18 at 00:45 Carvedilol (Coreg) 6.25 mg 1X ONCE PO ; Start 01/24/18 at 00:45; Stop at 00:49; Status DC Amlodipine Besylate (Norvasc) 5 mg 1X ONCE PO Last administered on 01/24/18at 01:00; Start 01/24/18 at 00:45; Stop 01/24/18 at 00:49; Status DC Oxycodone/ Acetaminophen (Percocet 5/325) 1 tab PRN Q4HRS PRN PO PAIN; Start 01/24/18 at 01:00 Carvedilol (Coreg) 12.5 mg 1X ONCE PO Last administered on 01/24/18at 01:05; Start 01/24/18 at 01:00; Stop 01/24/18 at 01:04; Status DC Nicardipine HCl 50 mg/Sodium Chloride 270 ml @ 32.4 mls/hr CONT PRN IV SEE I/ O RECORD Last administered on 01/24/18at 03:15; Start 01/24/18 at 03:00 Acetaminophen (Tylenol) 650 mg PRN Q6HRS PRN PEG MILD PAIN / TEMP; Start 01/24 at 03:15; Status Cancel Ondansetron HCl (Zofran) 4 mg PRN Q6HRS PRN IV NAUSEA/VOMITING, 1ST CHOICE Last administered on 01/24/18at 05:04; Start 01/24/18 at 03:15 Metoclopramide HCl (Reglan Vial) 5 mg PRN Q6HRS PRN IV NAUSEA/VOMITING, 3RD CHOICE Last administered on 01/24/18at 03:14; Start 01/24/18 at 03:15 Prochlorperazine Edisylate (Compazine) 10 mg PRN Q6HRS PRN IV NAUSEA/VOMITING, 2ND CHOICE Last administered on 01/24/18at 09:09; Start 01/24/18 at 03:15 Pantoprazole Sodium (Protonix) 40 mg 1X ONCE PO Last administered on at 03:13; Start 01/24/18 at 03:30; Stop 01/24/18 at 03:31; Status DC Acetaminophen (Tylenol) 650 mg PRN Q6HRS PRN PO MIGRAINE HEADACHE; Start 01/24 at 03:15 Insulin Human Lispro (HumaLOG) 10 units 1X ONCE SQ Last administered on at 05:09; Start 01/24/18 at 05:00; Stop 01/24/18 at 05:02; Status DC Magnesium Sulfate/ Dextrose 100 ml @ 100 mls/hr 1X ONCE IV ; Start 01/24/18 at 09:15; Stop 01/24/18 at 10:14; Status DC Metoprolol Tartrate (Lopressor Vial) 5 mg Q6HRS IVP ; Start 01/24/18 at 11:00 Trimethobenzamide HCl (Tigan Im) 200 mg PRN Q6HRS PRN IM NAUSEA/VOMITING; Start 01/24/18 at 11:00 Morphine Sulfate (Morphine Sulfate) 2 mg PRN Q2HR PRN IV PAIN; Start 01/24/18 at 11:00 Amlodipine Besylate (Norvasc) 5 mg DAILY PO ; Start 01/24/18 at 11:30 Clonidine HCl (Catapres) 0.2 mg BID PO ; Start 01/24/18 at 11:30 Clopidogrel Bisulfate (Plavix) 75 mg DAILY PO ; Start 01/24/18 at 11:30 Insulin Glargine (Lantus) 4 units DAILYWBKFT SQ ; Start 01/24/18 at 11:30; Stop 01/24/18 at 11:30; Status DC Insulin Glargine (Lantus) 4 units QHS SQ ; Start 01/24/18 at 21:00; Status UNV Carvedilol (Coreg) 25 mg BIDWMEALS PO ; Start 01/24/18 at 17:00 Non-Formulary Medication (Hydrochlorothiazide (Hydrochlorothiazide Capsule ) ) 10 mg BID PO ; Start 01/24/18 at 21:00; Status UNV Mycophenolate Mofetil (Cellcept) 250 mg BID PO ; Start 01/24/18 at 12:00 Pantoprazole Sodium (Protonix) 40 mg DAILYAC PO ; Start 01/24/18 at 11:30 Tacrolimus (Prograf) 2 mg BID PO ; Start 01/24/18 at 12:00 Insulin Glargine (Lantus) 4 units BID SQ ; Start 01/24/18 at 11:30 Active Scripts Active Oxycodone-Acetaminophen 5-325 (Oxycodone Hcl/Acetaminophen) 1 Each Tablet 1 Tab PO PRN Q4HRS PRN Reported Lantus Solostar (Insulin Glargine,Hum.rec.anlog) 100 Unit/1 Ml Insuln.pen 4 Unit SQ DAILYWBKFT Lantus Solostar (Insulin Glargine,Hum.rec.anlog) 100 Unit/1 Ml Insuln.pen 4 Unit SQ QHS Amlodipine Besylate 5 Mg Tablet 5 Mg PO DAILY Clonidine Hcl 0.2 Mg Tablet 1 Tab PO BID Clopidogrel (Clopidogrel Bisulfate) 75 Mg Tablet 1 Tab PO DAILY Prograf (Tacrolimus) 1 Mg Capsule 2 Cap PO BID Cellcept (Mycophenolate Mofetil) 250 Mg Capsule 1 Cap PO BID Pantoprazole Sodium 20 Mg Tablet.dr 20 Mg PO DAILY Hydrochlorothiazide Capsule (Hydrochlorothiazide) 12.5 Mg Capsule 10 Mg PO BID Carvedilol 25 Mg Tablet 2 Tab PO DAILYBFRSUP Allergies Allergies: Coded Allergies: amoxicillin (Verified Allergy, Intermediate, 07/15/16) latex (Verified Allergy, Intermediate, 07/15/16) promethazine (Verified Allergy, Intermediate, 01/24/18) Tolerates compazine succinylcholine (Verified Allergy, Intermediate, 07/15/16) ROS General: YES: Fatigue, Malaise, Appetite PSYCHOLOGICAL ROS: YES: Anxiety, Depression Eyes: Yes Decreased vision HEENT: YES: Heacaches Respiratory: YES: Cough Gastrointestinal: Yes Nausea, Yes Vomiting Musculoskeletal: Yes Muscular Weakness Neurological: Yes Dizziness Skin: Yes Dry Skin Physical Exam General: Alert, Oriented X3, Cooperative, No acute distress HEENT: Atraumatic, PERRLA, EOMI, Other (DRY MUCOSA) Lungs: Clear to auscultation Heart: Regular rate, Normal S1 Extremities: No clubbing, No cyanosis Skin: No breakdown, No significant lesion Neuro: Normal speech, Cranial nerves 3-12 NL Psych/Mental Status: Mental status NL, Mood NL MUSCULOSKELETAL: No deformity, Other (BILATERAL BKA) Vitals VITALS Vital Signs Date Time Temp Pulse Resp B/P (MAP) Pulse Ox O2 Delivery O2 Flow Rate FiO2 01/24/18 10:26 98.7 122 20 175/79 (111) 96 Room Air 98.7 Labs Labs Laboratory Tests Test 01/23/18 17:19 01/23/18 17:20 01/23/18 18:21 01/23/18 23:19 Glucose (Fingerstick) 310 mg/dL (70-99) 135 mg/dL (70-99) White Blood Count 9.6 x10^3/uL (4.0-11.0) Red Blood Count 4.01 x10^6/uL (4.30-5.70) Hemoglobin 12.5 g/dL (13.0-17.5) Hematocrit 35.1 % (39.0-53.0) Mean Corpuscular Volume 88 fL (79-100) Mean Corpuscular Hemoglobin 31 pg (25-35) Mean Corpuscular Hemoglobin Concent 36 g/dL (31-37) Red Cell Distribution Width 13.0 % (11.5-14.5) Platelet Count 266 x10^3/uL (140-400) Neutrophils (%) (Auto) 88 % (31-73) Lymphocytes (%) (Auto) 7 % (24-48) Monocytes (%) (Auto) 4 % (0-9) Eosinophils (%) (Auto) 0 % (0-3) Basophils (%) (Auto) 1 % (0-3) Neutrophils # (Auto) 8.4 x10^3uL (1.8-7.7) Lymphocytes # (Auto) 0.7 x10^3/uL (1.0-4.8) Monocytes # (Auto) 0.4 x10^3/uL (0.0-1.1) Eosinophils # (Auto) 0.0 x10^3/uL (0.0-0.7) Basophils # (Auto) 0.0 x10^3/uL (0.0-0.2) Segmented Neutrophils % 83 % (35-66) Lymphocytes % 13 % (24-48) Monocytes % 3 % (0-10) Eosinophils % 1 % (0-5) Platelet Estimate Adequate (ADEQUATE) Sodium Level 137 mmol/L (136-145) Potassium Level 4.5 mmol/L (3.5-5.1) Chloride Level 99 mmol/L (98-107) Carbon Dioxide Level 17 mmol/L (21-32) Anion Gap 21 (6-14) Blood Urea Nitrogen 30 mg/dL (8-26) Creatinine 2.3 mg/dL (0.7-1.3) Estimated GFR (Cockcroft-Gault) 30.2 BUN/Creatinine Ratio 13 (6-20) Glucose Level 320 mg/dL (70-99) Lactic Acid Level 0.7 mmol/L (0.4-2.0) Calcium Level 10.0 mg/dL (8.5-10.1) Phosphorus Level 3.8 mg/dL (2.6-4.7) Magnesium Level 1.7 mg/dL (1.8-2.4) Total Bilirubin 0.4 mg/dL (0.2-1.0) Aspartate Amino Transf (AST/SGOT) 18 U/L (15-37) Alanine Aminotransferase (ALT/SGPT) 17 U/L (16-63) Alkaline Phosphatase 122 U/L (46-116) Total Protein 9.8 g/dL (6.4-8.2) Albumin 3.5 g/dL (3.4-5.0) Albumin/Globulin Ratio 0.6 (1.0-1.7) Acetone Level Sm pos (NEG) Influenza Type A Antigen Negative (NEGATIVE) Influenza Type B Antigen Negative (NEGATIVE) Test 01/24/18 04:05 01/24/18 05:25 01/24/18 08:00 01/24/18 08:02 Glucose (Fingerstick) 311 mg/dL (70-99) 251 mg/dL (70-99) White Blood Count 7.4 x10^3/uL (4.0-11.0) Red Blood Count 3.64 x10^6/uL (4.30-5.70) Hemoglobin 11.0 g/dL (13.0-17.5) Hematocrit 32.1 % (39.0-53.0) Mean Corpuscular Volume 88 fL (79-100) Mean Corpuscular Hemoglobin 30 pg (25-35) Mean Corpuscular Hemoglobin Concent 34 g/dL (31-37) Red Cell Distribution Width 13.5 % (11.5-14.5) Platelet Count 225 x10^3/uL (140-400) Neutrophils (%) (Auto) 86 % (31-73) Lymphocytes (%) (Auto) 9 % (24-48) Monocytes (%) (Auto) 5 % (0-9) Eosinophils (%) (Auto) 0 % (0-3) Basophils (%) (Auto) 0 % (0-3) Neutrophils # (Auto) 6.3 x10^3uL (1.8-7.7) Lymphocytes # (Auto) 0.6 x10^3/uL (1.0-4.8) Monocytes # (Auto) 0.3 x10^3/uL (0.0-1.1) Eosinophils # (Auto) 0.0 x10^3/uL (0.0-0.7) Basophils # (Auto) 0.0 x10^3/uL (0.0-0.2) Sodium Level 138 mmol/L (136-145) Potassium Level 4.8 mmol/L (3.5-5.1) Chloride Level 100 mmol/L (98-107) Carbon Dioxide Level 16 mmol/L (21-32) Anion Gap 22 (6-14) Blood Urea Nitrogen 31 mg/dL (8-26) Creatinine 2.3 mg/dL (0.7-1.3) Estimated GFR (Cockcroft-Gault) 30.2 BUN/Creatinine Ratio 13 (6-20) Glucose Level 350 mg/dL (70-99) Calcium Level 9.8 mg/dL (8.5-10.1) Total Bilirubin 0.4 mg/dL (0.2-1.0) Aspartate Amino Transf (AST/SGOT) 16 U/L (15-37) Alanine Aminotransferase (ALT/SGPT) 16 U/L (16-63) Alkaline Phosphatase 99 U/L (46-116) Total Protein 8.7 g/dL (6.4-8.2) Albumin 3.2 g/dL (3.4-5.0) Albumin/Globulin Ratio 0.6 (1.0-1.7) Magnesium Level 1.7 mg/dL (1.8-2.4) Troponin I Quantitative 0.019 ng/mL (0.000-0.055) Triglycerides Level 129 mg/dL (0-150) Cholesterol Level 175 mg/dL (0-200) LDL Cholesterol, Calculated 97 mg/dL (0-100) VLDL Cholesterol, Calculated 26 mg/dL (0-40) Non-HDL Cholesterol Calculated 123 mg/dL (0-129) HDL Cholesterol 52 mg/dL (40-60) Cholesterol/HDL Ratio 3.4 Thyroid Stimulating Hormone (TSH) 3.222 uIU/mL (0.358-3.74) Laboratory Tests Test 01/23/18 17:19 01/23/18 17:20 01/23/18 18:21 01/23/18 23:19 Glucose (Fingerstick) 310 mg/dL (70-99) 135 mg/dL (70-99) White Blood Count 9.6 x10^3/uL (4.0-11.0) Red Blood Count 4.01 x10^6/uL (4.30-5.70) Hemoglobin 12.5 g/dL (13.0-17.5) Hematocrit 35.1 % (39.0-53.0) Mean Corpuscular Volume 88 fL (79-100) Mean Corpuscular Hemoglobin 31 pg (25-35) Mean Corpuscular Hemoglobin Concent 36 g/dL (31-37) Red Cell Distribution Width 13.0 % (11.5-14.5) Platelet Count 266 x10^3/uL (140-400) Neutrophils (%) (Auto) 88 % (31-73) Lymphocytes (%) (Auto) 7 % (24-48) Monocytes (%) (Auto) 4 % (0-9) Eosinophils (%) (Auto) 0 % (0-3) Basophils (%) (Auto) 1 % (0-3) Neutrophils # (Auto) 8.4 x10^3uL (1.8-7.7) Lymphocytes # (Auto) 0.7 x10^3/uL (1.0-4.8) Monocytes # (Auto) 0.4 x10^3/uL (0.0-1.1) Eosinophils # (Auto) 0.0 x10^3/uL (0.0-0.7) Basophils # (Auto) 0.0 x10^3/uL (0.0-0.2) Segmented Neutrophils % 83 % (35-66) Lymphocytes % 13 % (24-48) Monocytes % 3 % (0-10) Eosinophils % 1 % (0-5) Platelet Estimate Adequate (ADEQUATE) Sodium Level 137 mmol/L (136-145) Potassium Level 4.5 mmol/L (3.5-5.1) Chloride Level 99 mmol/L (98-107) Carbon Dioxide Level 17 mmol/L (21-32) Anion Gap 21 (6-14) Blood Urea Nitrogen 30 mg/dL (8-26) Creatinine 2.3 mg/dL (0.7-1.3) Estimated GFR (Cockcroft-Gault) 30.2 BUN/Creatinine Ratio 13 (6-20) Glucose Level 320 mg/dL (70-99) Lactic Acid Level 0.7 mmol/L (0.4-2.0) Calcium Level 10.0 mg/dL (8.5-10.1) Phosphorus Level 3.8 mg/dL (2.6-4.7) Magnesium Level 1.7 mg/dL (1.8-2.4) Total Bilirubin 0.4 mg/dL (0.2-1.0) Aspartate Amino Transf (AST/SGOT) 18 U/L (15-37) Alanine Aminotransferase (ALT/SGPT) 17 U/L (16-63) Alkaline Phosphatase 122 U/L (46-116) Total Protein 9.8 g/dL (6.4-8.2) Albumin 3.5 g/dL (3.4-5.0) Albumin/Globulin Ratio 0.6 (1.0-1.7) Acetone Level Sm pos (NEG) Influenza Type A Antigen Negative (NEGATIVE) Influenza Type B Antigen Negative (NEGATIVE) Test 01/24/18 04:05 01/24/18 05:25 01/24/18 08:00 01/24/18 08:02 Glucose (Fingerstick) 311 mg/dL (70-99) 251 mg/dL (70-99) White Blood Count 7.4 x10^3/uL (4.0-11.0) Red Blood Count 3.64 x10^6/uL (4.30-5.70) Hemoglobin 11.0 g/dL (13.0-17.5) Hematocrit 32.1 % (39.0-53.0) Mean Corpuscular Volume 88 fL (79-100) Mean Corpuscular Hemoglobin 30 pg (25-35) Mean Corpuscular Hemoglobin Concent 34 g/dL (31-37) Red Cell Distribution Width 13.5 % (11.5-14.5) Platelet Count 225 x10^3/uL (140-400) Neutrophils (%) (Auto) 86 % (31-73) Lymphocytes (%) (Auto) 9 % (24-48) Monocytes (%) (Auto) 5 % (0-9) Eosinophils (%) (Auto) 0 % (0-3) Basophils (%) (Auto) 0 % (0-3) Neutrophils # (Auto) 6.3 x10^3uL (1.8-7.7) Lymphocytes # (Auto) 0.6 x10^3/uL (1.0-4.8) Monocytes # (Auto) 0.3 x10^3/uL (0.0-1.1) Eosinophils # (Auto) 0.0 x10^3/uL (0.0-0.7) Basophils # (Auto) 0.0 x10^3/uL (0.0-0.2) Sodium Level 138 mmol/L (136-145) Potassium Level 4.8 mmol/L (3.5-5.1) Chloride Level 100 mmol/L (98-107) Carbon Dioxide Level 16 mmol/L (21-32) Anion Gap 22 (6-14) Blood Urea Nitrogen 31 mg/dL (8-26) Creatinine 2.3 mg/dL (0.7-1.3) Estimated GFR (Cockcroft-Gault) 30.2 BUN/Creatinine Ratio 13 (6-20) Glucose Level 350 mg/dL (70-99) Calcium Level 9.8 mg/dL (8.5-10.1) Total Bilirubin 0.4 mg/dL (0.2-1.0) Aspartate Amino Transf (AST/SGOT) 16 U/L (15-37) Alanine Aminotransferase (ALT/SGPT) 16 U/L (16-63) Alkaline Phosphatase 99 U/L (46-116) Total Protein 8.7 g/dL (6.4-8.2) Albumin 3.2 g/dL (3.4-5.0) Albumin/Globulin Ratio 0.6 (1.0-1.7) Magnesium Level 1.7 mg/dL (1.8-2.4) Troponin I Quantitative 0.019 ng/mL (0.000-0.055) Triglycerides Level 129 mg/dL (0-150) Cholesterol Level 175 mg/dL (0-200) LDL Cholesterol, Calculated 97 mg/dL (0-100) VLDL Cholesterol, Calculated 26 mg/dL (0-40) Non-HDL Cholesterol Calculated 123 mg/dL (0-129) HDL Cholesterol 52 mg/dL (40-60) Cholesterol/HDL Ratio 3.4 Thyroid Stimulating Hormone (TSH) 3.222 uIU/mL (0.358-3.74) Assessment/Plan Assessment/Plan IMP JAMAL DUE TO DEHYDRATION S/P RENAL TX TIMES 2-LAST IN 2007-1ST IN 1993 NAUSEA/VOMITING UNCONTROLLED HTN DM II HEADACHES-?MIGRAINE PLAN HYDRATE RESUME PROGRAF-MAY NEED SL RESUME CELLCEPT-WILL NEED IV HOLD HIS DIURETICS CONTROL BP CHECK PROGRAF TROUGH LEVEL RULE OUT PROGRAF TOXICITY HAVE D/W PHARMACY WILL FOLLOW MOR PADILLA MD Jan 24, 2018 11:52
[2018-01-24] MEDS: METOPROLOL TARTRATE 5 MG/5 ML VIAL. IVP SCH ×3 (12:00→23:40)
[2018-01-24] MEDS ORDERED: MYCOPHENOLATE MOFETIL 250 MG CAPSULE. PO SCH (12:00)
[2018-01-24] MEDS ORDERED: TACROLIMUS 0.5 MG CAPSULE PO SCH ×2 (12:00→21:00)
[2018-01-24] MEDS: INSULIN GLARGINE 300 UNITS/3 ML INSULN.PEN. SQ SCH ×2 (12:26→21:10)
[2018-01-24] MEDS: PANTOPRAZOLE IV PUSH 40 MG VIAL. IVP SCH (14:12)
[2018-01-24] MEDS: CLOPIDOGREL BISULFATE 75 MG TABLET PO SCH (14:12)
[2018-01-24] MEDS ORDERED: SODIUM CHLORIDE 0.65% NASAL SPRAY 45ML BOTTLE. NS PRN ×2 (15:00→17:30)
[2018-01-24] MEDS ORDERED: TACR1CAP4 PO ×2 (15:23)
--- NOTE | 2018-01-24 15:26 | PDOC2 ---
NEUROLOGY CONSULT Date of Admission Date of Admission DATE: 01/24/18 TIME: 15:12 Reason for Consult Reason for Consult: IMPRESSION: Headache. Vomiting. CAD. DM. HTN. HLD. PVD. Kidney transplant, bilateral. Renal failure. 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 RECOMMENDATIONS/PLAN: Pain control. Neurontin 100 mg tid. Treat medical diseases. Obtain his recent CT and MRI results from outside hospital. HISTORY OF THE PRESENT ILLNESS: 52-y-old AA male patient with above medical diseases has history of migraine headache but not frequent maybe about 2 to 3 times a years lasting for about 1 week each with associated with nausea and vomiting. He was evaluated in [facility] recently for his headaches and he believed he had HCT and brain MRI there. He has headaches, nausea, vomiting this time since 01/20/18. No focalized sensory or motor deficits. PAST MEDICAL HISTORY Cardiovascular: CAD, HTN, Hyperlipidemia, Other (PAD) Pulmonary: No pertinent hx CENTRAL NERVOUS SYSTEM: Migraine GI: GERD Heme/Onc: Anemia NOS, Other (chronic immunosuppression) Psych: No pertinent hx Musculoskeletal: Osteoarthritis Infectious disease: No pertinent hx ENT: No pertinent hx Renal/: Chronic renal failure Endocrine: Diabetes (1) PAST SURGICAL HISTORY Renal transplant 2003 then failed then 2007; bilateral BKA due to DM and PA. FAMILY HISTORY Heart Disease ALLERGY: Reviewed. MEDICATIONS: Refer to [facility] SOCIAL HISTORY: Lives with family. Denies current smoking, drinking, and illicit drug use. REVIEW OF SYSTEMS: Constitutional: No malnutrition, weight loss, cachexia. Head: No traumatic brain or head injury. Skin: No edema, or rash. Ear: No infection. Eyes: Left eye blindness. Nose: No bleeding or purulent discharges. Hearing: No hearing decrease. Neck: No injury. Cardiac: CAD, HTN, HLD. Pulmonary: No COPD. GI: No GI ulcer, GI bleeding. Urinary/genital: Kidney transplant. Endocrinologic: Diabetes Mellitus. Skeletomuscular: BKA. Neurological: see HP. Psychiatric: Denies drug use/abuse. Otherwise, not [id number] review of systems. PHYSICAL EXAMINATION: General appearance is in no acute distress. HEENT: Normocephalic and nontraumatic. Nose, ears, and throat are unremarkable. Left eye prosthetic. Neck is supple. No lymphadenopathy. No crepitus. Cardiovascular: S1, S2, regular rate and rhythm. Pulmonary: Clear to auscultation bilaterally. Abdomen: Bowel sounds are positive. Extremities: No rash, lesions, or edema. No restriction of range of motion NEUROLOGICAL EXAMINATION: Alert Oriented to time, place and person. Right eye pupil 2 mm reactive to light stimulation. Left prosthetic eye. EOMI. CN: no focal findings. Muscle tone: within normal. Muscle strength: 5 DTR: 2 UE, 1 at knee. Plantar reflex: BKA. Gait: not examined in bed. Sensory exam: no abnormal findings. No acute cerebellar signs elicited. F-T-N test accurate. Current Medications Current Medications Current Medications Sodium Chloride 1,000 ml @ 1,000 mls/hr Q1H IV Last administered on at 17:54; Start 01/23/18 at 17:21; Stop 01/23/18 at 18:20; Status DC Prochlorperazine Edisylate (Compazine) 10 mg 1X ONCE IV Last administered on 01/23/18at 17:55; Start 01/23/18 at 17:30; Stop 01/23/18 at 17:31; Status DC Diphenhydramine HCl (Benadryl) 25 mg 1X ONCE IVP Last administered on at 17:57; Start 01/23/18 at 17:30; Stop 01/23/18 at 17:31; Status DC Metoclopramide HCl (Reglan Vial) 10 mg 1X ONCE IV Last administered on at 19:24; Start 01/23/18 at 19:15; Stop 01/23/18 at 19:17; Status DC Diphenhydramine HCl (Benadryl) 25 mg 1X ONCE IVP Last administered on at 19:25; Start 01/23/18 at 19:15; Stop 01/23/18 at 19:17; Status DC Metoprolol Tartrate (Lopressor Vial) 5 mg 1X ONCE IVP Last administered on at 19:55; Start 01/23/18 at 19:45; Stop 01/23/18 at 19:46; Status DC Insulin Human Regular (HumuLIN R VIAL) 5 unit 1X ONCE IV Last administered on 01/23/18at 19:55; Start 01/23/18 at 19:45; Stop 01/23/18 at 19:46; Status DC Labetalol HCl (Normodyne Iv Push) 10 mg 1X ONCE IVP ; Start 01/23/18 at 20:30 ; Stop 01/23/18 at 20:31; Status DC Labetalol HCl (Normodyne Iv Push) 10 mg 1X ONCE IVP Last administered on 01/23at 22:29; Start 01/23/18 at 22:00; Stop 01/23/18 at 22:04; Status DC Ondansetron HCl (Zofran) 4 mg PRN Q8HRS PRN IV NAUSEA/VOMITING Last administered on 01/24/18at 00:16; Start 01/23/18 at 22:45; Stop 01/24/18 at 03 :05; Status DC Fentanyl Citrate (Fentanyl 2ml Vial) 50 mcg PRN Q2HR PRN IV PAIN Last administered on 01/24/18at 11:59; Start 01/23/18 at 22:45; Stop 01/24/18 at 22 :44 Sodium Chloride 1,000 ml @ 100 mls/hr Q10H IV Last administered on 01/24/18at 12:01; Start 01/23/18 at 22:37; Stop 01/24/18 at 22:36 Labetalol HCl (Normodyne Iv Push) 10 mg PRN Q30MIN PRN IVP SBP>180 Last administered on 01/24/18at 00:07; Start 01/23/18 at 22:45; Stop 01/24/18 at 00 :49; Status DC Insulin Human Lispro (HumaLOG) 0-5 UNITS TIDWMEALS SQ Last administered on at 09:19; Start 01/24/18 at 08:00 Dextrose (Dextrose 50%-Water Syringe) 12.5 gm PRN Q15MIN PRN IV SEE COMMENTS; Start 01/23/18 at 23:00 Labetalol HCl (Normodyne Iv Push) 20 mg PRN Q2HR PRN IVP HYPERTENSION, SEE COMMENTS Last administered on 01/24/18at 02:12; Start 01/24/18 at 00:45 Carvedilol (Coreg) 6.25 mg 1X ONCE PO ; Start 01/24/18 at 00:45; Stop at 00:49; Status DC Amlodipine Besylate (Norvasc) 5 mg 1X ONCE PO Last administered on 01/24/18at 01:00; Start 01/24/18 at 00:45; Stop 01/24/18 at 00:49; Status DC Oxycodone/ Acetaminophen (Percocet 5/325) 1 tab PRN Q4HRS PRN PO PAIN; Start 01/24/18 at 01:00 Carvedilol (Coreg) 12.5 mg 1X ONCE PO Last administered on 01/24/18at 01:05; Start 01/24/18 at 01:00; Stop 01/24/18 at 01:04; Status DC Nicardipine HCl 50 mg/Sodium Chloride 270 ml @ 32.4 mls/hr CONT PRN IV SEE I/ O RECORD Last administered on 01/24/18at 03:15; Start 01/24/18 at 03:00 Acetaminophen (Tylenol) 650 mg PRN Q6HRS PRN PEG MILD PAIN / TEMP; Start 01/24 at 03:15; Status Cancel Ondansetron HCl (Zofran) 4 mg PRN Q6HRS PRN IV NAUSEA/VOMITING, 1ST CHOICE Last administered on 01/24/18at 14:16; Start 01/24/18 at 03:15 Metoclopramide HCl (Reglan Vial) 5 mg PRN Q6HRS PRN IV NAUSEA/VOMITING, 3RD CHOICE Last administered on 01/24/18at 12:00; Start 01/24/18 at 03:15 Prochlorperazine Edisylate (Compazine) 10 mg PRN Q6HRS PRN IV NAUSEA/VOMITING, 2ND CHOICE Last administered on 01/24/18at 09:09; Start 01/24/18 at 03:15 Pantoprazole Sodium (Protonix) 40 mg 1X ONCE PO Last administered on at 03:13; Start 01/24/18 at 03:30; Stop 01/24/18 at 03:31; Status DC Acetaminophen (Tylenol) 650 mg PRN Q6HRS PRN PO MIGRAINE HEADACHE; Start 01/24 at 03:15 Insulin Human Lispro (HumaLOG) 10 units 1X ONCE SQ Last administered on at 05:09; Start 01/24/18 at 05:00; Stop 01/24/18 at 05:02; Status DC Magnesium Sulfate/ Dextrose 100 ml @ 100 mls/hr 1X ONCE IV Last administered on 01/24/18at 12:01; Start 01/24/18 at 09:15; Stop 01/24/18 at 10:14; Status DC Metoprolol Tartrate (Lopressor Vial) 5 mg Q6HRS IVP Last administered on at 12:00; Start 01/24/18 at 11:00 Trimethobenzamide HCl (Tigan Im) 200 mg PRN Q6HRS PRN IM NAUSEA/VOMITING; Start 01/24/18 at 11:00 Morphine Sulfate (Morphine Sulfate) 2 mg PRN Q2HR PRN IV PAIN; Start 01/24/18 at 11:00 Amlodipine Besylate (Norvasc) 5 mg DAILY PO ; Start 01/24/18 at 11:30 Clonidine HCl (Catapres) 0.2 mg BID PO ; Start 01/24/18 at 11:30 Clopidogrel Bisulfate (Plavix) 75 mg DAILY PO Last administered on 01/24/18at 14:12; Start 01/24/18 at 11:30 Insulin Glargine (Lantus) 4 units DAILYWBKFT SQ ; Start 01/24/18 at 11:30; Stop 01/24/18 at 11:30; Status DC Insulin Glargine (Lantus) 4 units QHS SQ ; Start 01/24/18 at 21:00; Status UNV Carvedilol (Coreg) 25 mg BIDWMEALS PO ; Start 01/24/18 at 17:00 Non-Formulary Medication (Hydrochlorothiazide (Hydrochlorothiazide Capsule ) ) 10 mg BID PO ; Start 01/24/18 at 21:00; Stop 01/24/18 at 21:00; Status DC Mycophenolate Mofetil (Cellcept) 250 mg BID PO Last administered on 01/24/18at 12:01; Start 01/24/18 at 12:00 Pantoprazole Sodium (Protonix) 40 mg DAILYAC PO ; Start 01/24/18 at 11:30; Stop 01/24/18 at 12:01; Status DC Tacrolimus (Prograf) 2 mg BID PO Last administered on 01/24/18at 12:02; Start 01/24/18 at 12:00; Stop 01/24/18 at 13:07; Status DC Insulin Glargine (Lantus) 4 units BID SQ Last administered on 01/24/18at 12:26 ; Start 01/24/18 at 11:30 Pantoprazole Sodium (PROTONIX VIAL for IV PUSH) 40 mg DAILYAC IVP Last administered on 01/24/18at 14:12; Start 01/24/18 at 13:00 Tacrolimus (Prograf) 4 mg DAILY PO ; Start 01/25/18 at 09:00; Stop 01/25/18 at 09:01 Tacrolimus (Prograf) 3 mg QHS PO ; Start 01/24/18 at 21:00; Stop 01/24/18 at 21:01 Tacrolimus (Prograf) 4 mg DAILY PO ; Start 01/26/18 at 09:00 Tacrolimus (Prograf) 3 mg QHS PO ; Start 01/25/18 at 21:00 Sodium Chloride (Saline Mist Nasal) 1 bryan PRN Q1HR PRN NS NASAL CONGESTION; Start 01/24/18 at 15:00 Active Scripts Active Oxycodone-Acetaminophen 5-325 (Oxycodone Hcl/Acetaminophen) 1 Each Tablet 1 Tab PO PRN Q4HRS PRN Reported Lantus Solostar (Insulin Glargine,Hum.rec.anlog) 100 Unit/1 Ml Insuln.pen 4 Unit SQ DAILYWBKFT Lantus Solostar (Insulin Glargine,Hum.rec.anlog) 100 Unit/1 Ml Insuln.pen 4 Unit SQ QHS Amlodipine Besylate 5 Mg Tablet 5 Mg PO DAILY Clonidine Hcl 0.2 Mg Tablet 1 Tab PO BID Clopidogrel (Clopidogrel Bisulfate) 75 Mg Tablet 1 Tab PO DAILY Prograf (Tacrolimus) 1 Mg Capsule 2 Cap PO BID Cellcept (Mycophenolate Mofetil) 250 Mg Capsule 1 Cap PO BID Pantoprazole Sodium 20 Mg Tablet.dr 20 Mg PO DAILY Hydrochlorothiazide Capsule (Hydrochlorothiazide) 12.5 Mg Capsule 10 Mg PO BID Carvedilol 25 Mg Tablet 2 Tab PO DAILYBFRSUP Allergies Allergies: Allergies Coded Allergies Type Severity Reaction Last Updated Verified amoxicillin Allergy Intermediate 07/15/16 Yes latex Allergy Intermediate 07/15/16 Yes promethazine Allergy Intermediate 01/24/18 Yes succinylcholine Allergy Intermediate 07/15/16 Yes ROS Review of System The patient denies any associated fevers, chills, headache, ear pain, rhinorrhea , sore throat, stiff neck, productive cough, chest pain, shortness of breath, back or flank pain, abdominal pain, nausea, vomiting, diarrhea, constipation, dysuria, rash, numbness, weakness, tingling, incontinence, difficulty ambulating, or diaphoresis. Physical Exam Physical Exam General: Well developed, well nourished, no acute distress, well appearing HEENT: Pupils equally round and reactive to light, EOMI, no discharge, normal conjunctiva Neck: Supple, no nuchal rigidity, no JVD, trachea midline, no tenderness Cardiac: RRR, no murmurs, no gallops, no rubs Chest/Lungs: CTAB, no wheeze, no rhonchi, no crackles Abdomen: soft, non-distended, no guarding, no peritoneal signs, non-tender Back: No tenderness Extremities: no edema, pulses intact, non-tender,capillary refill <3 sec bilateral upper and lower extremities, Neuro: Alert and oriented x 4, no focal deficits, normal speech Vitals Vitals: Vital Signs Date Time Temp Pulse Resp B/P (MAP) Pulse Ox O2 Delivery O2 Flow Rate FiO2 01/24/18 12:00 125 01/24/18 10:26 98.7 20 175/79 (111) 96 Room Air 98.7 Labs Labs Laboratory Tests Test 01/23/18 17:19 01/23/18 17:20 01/23/18 18:21 01/23/18 23:19 Glucose (Fingerstick) 310 mg/dL (70-99) 135 mg/dL (70-99) White Blood Count 9.6 x10^3/uL (4.0-11.0) Red Blood Count 4.01 x10^6/uL (4.30-5.70) Hemoglobin 12.5 g/dL (13.0-17.5) Hematocrit 35.1 % (39.0-53.0) Mean Corpuscular Volume 88 fL (79-100) Mean Corpuscular Hemoglobin 31 pg (25-35) Mean Corpuscular Hemoglobin Concent 36 g/dL (31-37) Red Cell Distribution Width 13.0 % (11.5-14.5) Platelet Count 266 x10^3/uL (140-400) Neutrophils (%) (Auto) 88 % (31-73) Lymphocytes (%) (Auto) 7 % (24-48) Monocytes (%) (Auto) 4 % (0-9) Eosinophils (%) (Auto) 0 % (0-3) Basophils (%) (Auto) 1 % (0-3) Neutrophils # (Auto) 8.4 x10^3uL (1.8-7.7) Lymphocytes # (Auto) 0.7 x10^3/uL (1.0-4.8) Monocytes # (Auto) 0.4 x10^3/uL (0.0-1.1) Eosinophils # (Auto) 0.0 x10^3/uL (0.0-0.7) Basophils # (Auto) 0.0 x10^3/uL (0.0-0.2) Segmented Neutrophils % 83 % (35-66) Lymphocytes % 13 % (24-48) Monocytes % 3 % (0-10) Eosinophils % 1 % (0-5) Platelet Estimate Adequate (ADEQUATE) Sodium Level 137 mmol/L (136-145) Potassium Level 4.5 mmol/L (3.5-5.1) Chloride Level 99 mmol/L (98-107) Carbon Dioxide Level 17 mmol/L (21-32) Anion Gap 21 (6-14) Blood Urea Nitrogen 30 mg/dL (8-26) Creatinine 2.3 mg/dL (0.7-1.3) Estimated GFR (Cockcroft-Gault) 30.2 BUN/Creatinine Ratio 13 (6-20) Glucose Level 320 mg/dL (70-99) Lactic Acid Level 0.7 mmol/L (0.4-2.0) Calcium Level 10.0 mg/dL (8.5-10.1) Phosphorus Level 3.8 mg/dL (2.6-4.7) Magnesium Level 1.7 mg/dL (1.8-2.4) Total Bilirubin 0.4 mg/dL (0.2-1.0) Aspartate Amino Transf (AST/SGOT) 18 U/L (15-37) Alanine Aminotransferase (ALT/SGPT) 17 U/L (16-63) Alkaline Phosphatase 122 U/L (46-116) Total Protein 9.8 g/dL (6.4-8.2) Albumin 3.5 g/dL (3.4-5.0) Albumin/Globulin Ratio 0.6 (1.0-1.7) Acetone Level Sm pos (NEG) Influenza Type A Antigen Negative (NEGATIVE) Influenza Type B Antigen Negative (NEGATIVE) Test 01/24/18 04:05 01/24/18 05:25 01/24/18 08:00 01/24/18 08:02 Glucose (Fingerstick) 311 mg/dL (70-99) 251 mg/dL (70-99) White Blood Count 7.4 x10^3/uL (4.0-11.0) Red Blood Count 3.64 x10^6/uL (4.30-5.70) Hemoglobin 11.0 g/dL (13.0-17.5) Hematocrit 32.1 % (39.0-53.0) Mean Corpuscular Volume 88 fL (79-100) Mean Corpuscular Hemoglobin 30 pg (25-35) Mean Corpuscular Hemoglobin Concent 34 g/dL (31-37) Red Cell Distribution Width 13.5 % (11.5-14.5) Platelet Count 225 x10^3/uL (140-400) Neutrophils (%) (Auto) 86 % (31-73) Lymphocytes (%) (Auto) 9 % (24-48) Monocytes (%) (Auto) 5 % (0-9) Eosinophils (%) (Auto) 0 % (0-3) Basophils (%) (Auto) 0 % (0-3) Neutrophils # (Auto) 6.3 x10^3uL (1.8-7.7) Lymphocytes # (Auto) 0.6 x10^3/uL (1.0-4.8) Monocytes # (Auto) 0.3 x10^3/uL (0.0-1.1) Eosinophils # (Auto) 0.0 x10^3/uL (0.0-0.7) Basophils # (Auto) 0.0 x10^3/uL (0.0-0.2) Sodium Level 138 mmol/L (136-145) Potassium Level 4.8 mmol/L (3.5-5.1) Chloride Level 100 mmol/L (98-107) Carbon Dioxide Level 16 mmol/L (21-32) Anion Gap 22 (6-14) Blood Urea Nitrogen 31 mg/dL (8-26) Creatinine 2.3 mg/dL (0.7-1.3) Estimated GFR (Cockcroft-Gault) 30.2 BUN/Creatinine Ratio 13 (6-20) Glucose Level 350 mg/dL (70-99) Calcium Level 9.8 mg/dL (8.5-10.1) Total Bilirubin 0.4 mg/dL (0.2-1.0) Aspartate Amino Transf (AST/SGOT) 16 U/L (15-37) Alanine Aminotransferase (ALT/SGPT) 16 U/L (16-63) Alkaline Phosphatase 99 U/L (46-116) Total Protein 8.7 g/dL (6.4-8.2) Albumin 3.2 g/dL (3.4-5.0) Albumin/Globulin Ratio 0.6 (1.0-1.7) Magnesium Level 1.7 mg/dL (1.8-2.4) Troponin I Quantitative 0.019 ng/mL (0.000-0.055) Triglycerides Level 129 mg/dL (0-150) Cholesterol Level 175 mg/dL (0-200) LDL Cholesterol, Calculated 97 mg/dL (0-100) VLDL Cholesterol, Calculated 26 mg/dL (0-40) Non-HDL Cholesterol Calculated 123 mg/dL (0-129) HDL Cholesterol 52 mg/dL (40-60) Cholesterol/HDL Ratio 3.4 Thyroid Stimulating Hormone (TSH) 3.222 uIU/mL (0.358-3.74) Test 01/24/18 11:55 Glucose (Fingerstick) 211 mg/dL (70-99) Laboratory Tests Test 01/23/18 17:19 01/23/18 17:20 01/23/18 18:21 01/23/18 23:19 Glucose (Fingerstick) 310 mg/dL (70-99) 135 mg/dL (70-99) White Blood Count 9.6 x10^3/uL (4.0-11.0) Red Blood Count 4.01 x10^6/uL (4.30-5.70) Hemoglobin 12.5 g/dL (13.0-17.5) Hematocrit 35.1 % (39.0-53.0) Mean Corpuscular Volume 88 fL (79-100) Mean Corpuscular Hemoglobin 31 pg (25-35) Mean Corpuscular Hemoglobin Concent 36 g/dL (31-37) Red Cell Distribution Width 13.0 % (11.5-14.5) Platelet Count 266 x10^3/uL (140-400) Neutrophils (%) (Auto) 88 % (31-73) Lymphocytes (%) (Auto) 7 % (24-48) Monocytes (%) (Auto) 4 % (0-9) Eosinophils (%) (Auto) 0 % (0-3) Basophils (%) (Auto) 1 % (0-3) Neutrophils # (Auto) 8.4 x10^3uL (1.8-7.7) Lymphocytes # (Auto) 0.7 x10^3/uL (1.0-4.8) Monocytes # (Auto) 0.4 x10^3/uL (0.0-1.1) Eosinophils # (Auto) 0.0 x10^3/uL (0.0-0.7) Basophils # (Auto) 0.0 x10^3/uL (0.0-0.2) Segmented Neutrophils % 83 % (35-66) Lymphocytes % 13 % (24-48) Monocytes % 3 % (0-10) Eosinophils % 1 % (0-5) Platelet Estimate Adequate (ADEQUATE) Sodium Level 137 mmol/L (136-145) Potassium Level 4.5 mmol/L (3.5-5.1) Chloride Level 99 mmol/L (98-107) Carbon Dioxide Level 17 mmol/L (21-32) Anion Gap 21 (6-14) Blood Urea Nitrogen 30 mg/dL (8-26) Creatinine 2.3 mg/dL (0.7-1.3) Estimated GFR (Cockcroft-Gault) 30.2 BUN/Creatinine Ratio 13 (6-20) Glucose Level 320 mg/dL (70-99) Lactic Acid Level 0.7 mmol/L (0.4-2.0) Calcium Level 10.0 mg/dL (8.5-10.1) Phosphorus Level 3.8 mg/dL (2.6-4.7) Magnesium Level 1.7 mg/dL (1.8-2.4) Total Bilirubin 0.4 mg/dL (0.2-1.0) Aspartate Amino Transf (AST/SGOT) 18 U/L (15-37) Alanine Aminotransferase (ALT/SGPT) 17 U/L (16-63) Alkaline Phosphatase 122 U/L (46-116) Total Protein 9.8 g/dL (6.4-8.2) Albumin 3.5 g/dL (3.4-5.0) Albumin/Globulin Ratio 0.6 (1.0-1.7) Acetone Level Sm pos (NEG) Influenza Type A Antigen Negative (NEGATIVE) Influenza Type B Antigen Negative (NEGATIVE) Test 01/24/18 04:05 01/24/18 05:25 01/24/18 08:00 01/24/18 08:02 Glucose (Fingerstick) 311 mg/dL (70-99) 251 mg/dL (70-99) White Blood Count 7.4 x10^3/uL (4.0-11.0) Red Blood Count 3.64 x10^6/uL (4.30-5.70) Hemoglobin 11.0 g/dL (13.0-17.5) Hematocrit 32.1 % (39.0-53.0) Mean Corpuscular Volume 88 fL (79-100) Mean Corpuscular Hemoglobin 30 pg (25-35) Mean Corpuscular Hemoglobin Concent 34 g/dL (31-37) Red Cell Distribution Width 13.5 % (11.5-14.5) Platelet Count 225 x10^3/uL (140-400) Neutrophils (%) (Auto) 86 % (31-73) Lymphocytes (%) (Auto) 9 % (24-48) Monocytes (%) (Auto) 5 % (0-9) Eosinophils (%) (Auto) 0 % (0-3) Basophils (%) (Auto) 0 % (0-3) Neutrophils # (Auto) 6.3 x10^3uL (1.8-7.7) Lymphocytes # (Auto) 0.6 x10^3/uL (1.0-4.8) Monocytes # (Auto) 0.3 x10^3/uL (0.0-1.1) Eosinophils # (Auto) 0.0 x10^3/uL (0.0-0.7) Basophils # (Auto) 0.0 x10^3/uL (0.0-0.2) Sodium Level 138 mmol/L (136-145) Potassium Level 4.8 mmol/L (3.5-5.1) Chloride Level 100 mmol/L (98-107) Carbon Dioxide Level 16 mmol/L (21-32) Anion Gap 22 (6-14) Blood Urea Nitrogen 31 mg/dL (8-26) Creatinine 2.3 mg/dL (0.7-1.3) Estimated GFR (Cockcroft-Gault) 30.2 BUN/Creatinine Ratio 13 (6-20) Glucose Level 350 mg/dL (70-99) Calcium Level 9.8 mg/dL (8.5-10.1) Total Bilirubin 0.4 mg/dL (0.2-1.0) Aspartate Amino Transf (AST/SGOT) 16 U/L (15-37) Alanine Aminotransferase (ALT/SGPT) 16 U/L (16-63) Alkaline Phosphatase 99 U/L (46-116) Total Protein 8.7 g/dL (6.4-8.2) Albumin 3.2 g/dL (3.4-5.0) Albumin/Globulin Ratio 0.6 (1.0-1.7) Magnesium Level 1.7 mg/dL (1.8-2.4) Troponin I Quantitative 0.019 ng/mL (0.000-0.055) Triglycerides Level 129 mg/dL (0-150) Cholesterol Level 175 mg/dL (0-200) LDL Cholesterol, Calculated 97 mg/dL (0-100) VLDL Cholesterol, Calculated 26 mg/dL (0-40) Non-HDL Cholesterol Calculated 123 mg/dL (0-129) HDL Cholesterol 52 mg/dL (40-60) Cholesterol/HDL Ratio 3.4 Thyroid Stimulating Hormone (TSH) 3.222 uIU/mL (0.358-3.74) Test 01/24/18 11:55 Glucose (Fingerstick) 211 mg/dL (70-99) KELSEY DUNCAN MD Jan 24, 2018 15:26
--- NOTE | 2018-01-24 15:31 | PDOC2 ---
NEUROLOGY CONSULT Date of Admission Date of Admission DATE: 01/24/18 TIME: 15:29 Reason for Consult Reason for Consult: Headache. Hypertensive emergency, SBP 229 mmHg. Hypertensive encephalopathy. Vomiting. CAD. DM. HTN. HLD. PVD. Kidney transplant, bilateral. Renal failure. 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 RECOMMENDATIONS/PLAN: BP control. Pain control. Neurontin 100 mg tid. Treat medical diseases. Brain MRI w/o contrast. Obtain his recent imagine results from outside hospital. HISTORY OF THE PRESENT ILLNESS: 52-y-old AA male patient with above medical diseases has history of migraine headache but not frequent maybe about 2 to 3 times a years lasting for about 1 week each with associated with nausea and vomiting. He was evaluated in [facility] recently for his headaches and he believed he had HCT and brain MRI there. He has headaches, nausea, vomiting this time since 01/20/18. No focalized sensory or motor deficits. PAST MEDICAL HISTORY Cardiovascular: CAD, HTN, Hyperlipidemia, Other (PAD) Pulmonary: No pertinent hx CENTRAL NERVOUS SYSTEM: Migraine GI: GERD Heme/Onc: Anemia NOS, Other (chronic immunosuppression) Psych: No pertinent hx Musculoskeletal: Osteoarthritis Infectious disease: No pertinent hx ENT: No pertinent hx Renal/: Chronic renal failure Endocrine: Diabetes (1) PAST SURGICAL HISTORY Renal transplant 2003 then failed then 2007; bilateral BKA due to DM and PA. FAMILY HISTORY Heart Disease ALLERGY: Reviewed. MEDICATIONS: Refer to [facility] SOCIAL HISTORY: Lives with family. Denies current smoking, drinking, and illicit drug use. REVIEW OF SYSTEMS: Constitutional: No malnutrition, weight loss, cachexia. Head: No traumatic brain or head injury. Skin: No edema, or rash. Ear: No infection. Eyes: Left eye blindness. Nose: No bleeding or purulent discharges. Hearing: No hearing decrease. Neck: No injury. Cardiac: CAD, HTN, HLD. Pulmonary: No COPD. GI: No GI ulcer, GI bleeding. Urinary/genital: Kidney transplant. Endocrinologic: Diabetes Mellitus. Skeletomuscular: BKA. Neurological: see HP. Psychiatric: Denies drug use/abuse. Otherwise, not [id number] review of systems. PHYSICAL EXAMINATION: General appearance is in no acute distress. HEENT: Normocephalic and nontraumatic. Nose, ears, and throat are unremarkable. Left eye prosthetic. Neck is supple. No lymphadenopathy. No crepitus. Cardiovascular: S1, S2, regular rate and rhythm. Pulmonary: Clear to auscultation bilaterally. Abdomen: Bowel sounds are positive. Extremities: No rash, lesions, or edema. No restriction of range of motion NEUROLOGICAL EXAMINATION: Alert Oriented to time, place and person. Right eye pupil 2 mm reactive to light stimulation. Left prosthetic eye. EOMI. CN: no focal findings. Muscle tone: within normal. Muscle strength: 5 DTR: 2 UE, 1 at knee. Plantar reflex: BKA. Gait: not examined in bed. Sensory exam: no abnormal findings. No acute cerebellar signs elicited. F-T-N test accurate. Current Medications Current Medications Current Medications Sodium Chloride 1,000 ml @ 1,000 mls/hr Q1H IV Last administered on 17:54; Start 01/23/18 at 17:21; Stop 01/23/18 at 18:20; Status DC Prochlorperazine Edisylate (Compazine) 10 mg 1X ONCE IV Last administered on 01/23/18 17:55; Start 01/23/18 at 17:30; Stop 01/23/18 at 17:31; Status DC Diphenhydramine HCl (Benadryl) 25 mg 1X ONCE IVP Last administered on at 17:57; Start 01/23/18 at 17:30; Stop 01/23/18 at 17:31; Status DC Metoclopramide HCl (Reglan Vial) 10 mg 1X ONCE IV Last administered on 19:24; Start 01/23/18 at 19:15; Stop 01/23/18 at 19:17; Status DC Diphenhydramine HCl (Benadryl) 25 mg 1X ONCE IVP Last administered on 19:25; Start 01/23/18 at 19:15; Stop 01/23/18 at 19:17; Status DC Metoprolol Tartrate (Lopressor Vial) 5 mg 1X ONCE IVP Last administered on 19:55; Start 01/23/18 at 19:45; Stop 01/23/18 at 19:46; Status DC Insulin Human Regular (HumuLIN R VIAL) 5 unit 1X ONCE IV Last administered on 10/24/18at 19:55; Start 01/23/18 at 19:45; Stop 01/23/18 at 19:46; Status DC Labetalol HCl (Normodyne Iv Push) 10 mg 1X ONCE IVP ; Start 01/23/18 at 20:30 ; Stop 01/23/18 at 20:31; Status DC Labetalol HCl (Normodyne Iv Push) 10 mg 1X ONCE IVP Last administered on 01/23at 22:29; Start 01/23/18 at 22:00; Stop 01/23/18 at 22:04; Status DC Ondansetron HCl (Zofran) 4 mg PRN Q8HRS PRN IV NAUSEA/VOMITING Last administered on 01/24/18at 00:16; Start 01/23/18 at 22:45; Stop 01/24/18 at 03 :05; Status DC Fentanyl Citrate (Fentanyl 2ml Vial) 50 mcg PRN Q2HR PRN IV PAIN Last administered on 01/24/18at 11:59; Start 01/23/18 at 22:45; Stop 01/24/18 at 22 :44 Sodium Chloride 1,000 ml @ 100 mls/hr Q10H IV Last administered on 01/24/18at 12:01; Start 01/23/18 at 22:37; Stop 01/24/18 at 22:36 Labetalol HCl (Normodyne Iv Push) 10 mg PRN Q30MIN PRN IVP SBP>180 Last administered on 01/24/18at 00:07; Start 01/23/18 at 22:45; Stop 01/24/18 at 00 :49; Status DC Insulin Human Lispro (HumaLOG) 0-5 UNITS TIDWMEALS SQ Last administered on at 09:19; Start 01/24/18 at 08:00 Dextrose (Dextrose 50%-Water Syringe) 12.5 gm PRN Q15MIN PRN IV SEE COMMENTS; Start 01/23/18 at 23:00 Labetalol HCl (Normodyne Iv Push) 20 mg PRN Q2HR PRN IVP HYPERTENSION, SEE COMMENTS Last administered on 01/24/18at 02:12; Start 01/24/18 at 00:45 Carvedilol (Coreg) 6.25 mg 1X ONCE PO ; Start 01/24/18 at 00:45; Stop at 00:49; Status DC Amlodipine Besylate (Norvasc) 5 mg 1X ONCE PO Last administered on 01/24/18at 01:00; Start 01/24/18 at 00:45; Stop 01/24/18 at 00:49; Status DC Oxycodone/ Acetaminophen (Percocet 5/325) 1 tab PRN Q4HRS PRN PO PAIN; Start 01/24/18 at 01:00 Carvedilol (Coreg) 12.5 mg 1X ONCE PO Last administered on 01/24/18at 01:05; Start 01/24/18 at 01:00; Stop 01/24/18 at 01:04; Status DC Nicardipine HCl 50 mg/Sodium Chloride 270 ml @ 32.4 mls/hr CONT PRN IV SEE I/ O RECORD Last administered on 01/24/18at 03:15; Start 01/24/18 at 03:00 Acetaminophen (Tylenol) 650 mg PRN Q6HRS PRN PEG MILD PAIN / TEMP; Start 01/24 at 03:15; Status Cancel Ondansetron HCl (Zofran) 4 mg PRN Q6HRS PRN IV NAUSEA/VOMITING, 1ST CHOICE Last administered on 01/24/18at 14:16; Start 01/24/18 at 03:15 Metoclopramide HCl (Reglan Vial) 5 mg PRN Q6HRS PRN IV NAUSEA/VOMITING, 3RD CHOICE Last administered on 01/24/18at 12:00; Start 01/24/18 at 03:15 Prochlorperazine Edisylate (Compazine) 10 mg PRN Q6HRS PRN IV NAUSEA/VOMITING, 2ND CHOICE Last administered on 01/24/18at 09:09; Start 01/24/18 at 03:15 Pantoprazole Sodium (Protonix) 40 mg 1X ONCE PO Last administered on at 03:13; Start 01/24/18 at 03:30; Stop 01/24/18 at 03:31; Status DC Acetaminophen (Tylenol) 650 mg PRN Q6HRS PRN PO MIGRAINE HEADACHE; Start 01/24 at 03:15 Insulin Human Lispro (HumaLOG) 10 units 1X ONCE SQ Last administered on at 05:09; Start 01/24/18 at 05:00; Stop 01/24/18 at 05:02; Status DC Magnesium Sulfate/ Dextrose 100 ml @ 100 mls/hr 1X ONCE IV Last administered on 01/24/18at 12:01; Start 01/24/18 at 09:15; Stop 01/24/18 at 10:14; Status DC Metoprolol Tartrate (Lopressor Vial) 5 mg Q6HRS IVP Last administered on at 12:00; Start 01/24/18 at 11:00 Trimethobenzamide HCl (Tigan Im) 200 mg PRN Q6HRS PRN IM NAUSEA/VOMITING; Start 01/24/18 at 11:00 Morphine Sulfate (Morphine Sulfate) 2 mg PRN Q2HR PRN IV PAIN; Start 01/24/18 at 11:00 Amlodipine Besylate (Norvasc) 5 mg DAILY PO ; Start 01/24/18 at 11:30 Clonidine HCl (Catapres) 0.2 mg BID PO ; Start 01/24/18 at 11:30 Clopidogrel Bisulfate (Plavix) 75 mg DAILY PO Last administered on 01/24/18at 14:12; Start 01/24/18 at 11:30 Insulin Glargine (Lantus) 4 units DAILYWBKFT SQ ; Start 01/24/18 at 11:30; Stop 01/24/18 at 11:30; Status DC Insulin Glargine (Lantus) 4 units QHS SQ ; Start 01/24/18 at 21:00; Status UNV Carvedilol (Coreg) 25 mg BIDWMEALS PO ; Start 01/24/18 at 17:00 Non-Formulary Medication (Hydrochlorothiazide (Hydrochlorothiazide Capsule ) ) 10 mg BID PO ; Start 01/24/18 at 21:00; Stop 01/24/18 at 21:00; Status DC Mycophenolate Mofetil (Cellcept) 250 mg BID PO Last administered on 01/24/18at 12:01; Start 01/24/18 at 12:00 Pantoprazole Sodium (Protonix) 40 mg DAILYAC PO ; Start 01/24/18 at 11:30; Stop 01/24/18 at 12:01; Status DC Tacrolimus (Prograf) 2 mg BID PO Last administered on 01/24/18at 12:02; Start 01/24/18 at 12:00; Stop 01/24/18 at 13:07; Status DC Insulin Glargine (Lantus) 4 units BID SQ Last administered on 01/24/18at 12:26 ; Start 01/24/18 at 11:30 Pantoprazole Sodium (PROTONIX VIAL for IV PUSH) 40 mg DAILYAC IVP Last administered on 01/24/18at 14:12; Start 01/24/18 at 13:00 Tacrolimus (Prograf) 4 mg DAILY PO ; Start 01/25/18 at 09:00; Stop 01/25/18 at 09:01 Tacrolimus (Prograf) 3 mg QHS PO ; Start 01/24/18 at 21:00; Stop 01/24/18 at 21:01 Tacrolimus (Prograf) 4 mg DAILY PO ; Start 01/26/18 at 09:00 Tacrolimus (Prograf) 3 mg QHS PO ; Start 01/25/18 at 21:00 Sodium Chloride (Saline Mist Nasal) 1 bryan PRN Q1HR PRN NS NASAL CONGESTION; Start 01/24/18 at 15:00 Active Scripts Active Oxycodone-Acetaminophen 5-325 (Oxycodone Hcl/Acetaminophen) 1 Each Tablet 1 Tab PO PRN Q4HRS PRN Reported Lantus Solostar (Insulin Glargine,Hum.rec.anlog) 100 Unit/1 Ml Insuln.pen 4 Unit SQ DAILYWBKFT Lantus Solostar (Insulin Glargine,Hum.rec.anlog) 100 Unit/1 Ml Insuln.pen 4 Unit SQ QHS Amlodipine Besylate 5 Mg Tablet 5 Mg PO DAILY Clonidine Hcl 0.2 Mg Tablet 1 Tab PO BID Clopidogrel (Clopidogrel Bisulfate) 75 Mg Tablet 1 Tab PO DAILY Prograf (Tacrolimus) 1 Mg Capsule 2 Cap PO BID Cellcept (Mycophenolate Mofetil) 250 Mg Capsule 1 Cap PO BID Pantoprazole Sodium 20 Mg Tablet.dr 20 Mg PO DAILY Hydrochlorothiazide Capsule (Hydrochlorothiazide) 12.5 Mg Capsule 10 Mg PO BID Carvedilol 25 Mg Tablet 2 Tab PO DAILYBFRSUP Allergies Allergies: Allergies Coded Allergies Type Severity Reaction Last Updated Verified amoxicillin Allergy Intermediate 07/15/16 Yes latex Allergy Intermediate 07/15/16 Yes promethazine Allergy Intermediate 01/24/18 Yes succinylcholine Allergy Intermediate 07/15/16 Yes ROS Review of System The patient denies any associated fevers, chills, headache, ear pain, rhinorrhea , sore throat, stiff neck, productive cough, chest pain, shortness of breath, back or flank pain, abdominal pain, nausea, vomiting, diarrhea, constipation, dysuria, rash, numbness, weakness, tingling, incontinence, difficulty ambulating, or diaphoresis. Physical Exam Physical Exam General: Well developed, well nourished, no acute distress, well appearing HEENT: Pupils equally round and reactive to light, EOMI, no discharge, normal conjunctiva Neck: Supple, no nuchal rigidity, no JVD, trachea midline, no tenderness Cardiac: RRR, no murmurs, no gallops, no rubs Chest/Lungs: CTAB, no wheeze, no rhonchi, no crackles Abdomen: soft, non-distended, no guarding, no peritoneal signs, non-tender Back: No tenderness Extremities: no edema, pulses intact, non-tender,capillary refill <3 sec bilateral upper and lower extremities, Neuro: Alert and oriented x 4, no focal deficits, normal speech Vitals Vitals: Vital Signs Date Time Temp Pulse Resp B/P (MAP) Pulse Ox O2 Delivery O2 Flow Rate FiO2 01/24/18 12:00 125 01/24/18 10:26 98.7 20 175/79 (111) 96 Room Air 98.7 Labs Labs Laboratory Tests Test 01/23/18 17:19 01/23/18 17:20 01/23/18 18:21 01/23/18 23:19 Glucose (Fingerstick) 310 mg/dL (70-99) 135 mg/dL (70-99) White Blood Count 9.6 x10^3/uL (4.0-11.0) Red Blood Count 4.01 x10^6/uL (4.30-5.70) Hemoglobin 12.5 g/dL (13.0-17.5) Hematocrit 35.1 % (39.0-53.0) Mean Corpuscular Volume 88 fL (79-100) Mean Corpuscular Hemoglobin 31 pg (25-35) Mean Corpuscular Hemoglobin Concent 36 g/dL (31-37) Red Cell Distribution Width 13.0 % (11.5-14.5) Platelet Count 266 x10^3/uL (140-400) Neutrophils (%) (Auto) 88 % (31-73) Lymphocytes (%) (Auto) 7 % (24-48) Monocytes (%) (Auto) 4 % (0-9) Eosinophils (%) (Auto) 0 % (0-3) Basophils (%) (Auto) 1 % (0-3) Neutrophils # (Auto) 8.4 x10^3uL (1.8-7.7) Lymphocytes # (Auto) 0.7 x10^3/uL (1.0-4.8) Monocytes # (Auto) 0.4 x10^3/uL (0.0-1.1) Eosinophils # (Auto) 0.0 x10^3/uL (0.0-0.7) Basophils # (Auto) 0.0 x10^3/uL (0.0-0.2) Segmented Neutrophils % 83 % (35-66) Lymphocytes % 13 % (24-48) Monocytes % 3 % (0-10) Eosinophils % 1 % (0-5) Platelet Estimate Adequate (ADEQUATE) Sodium Level 137 mmol/L (136-145) Potassium Level 4.5 mmol/L (3.5-5.1) Chloride Level 99 mmol/L (98-107) Carbon Dioxide Level 17 mmol/L (21-32) Anion Gap 21 (6-14) Blood Urea Nitrogen 30 mg/dL (8-26) Creatinine 2.3 mg/dL (0.7-1.3) Estimated GFR (Cockcroft-Gault) 30.2 BUN/Creatinine Ratio 13 (6-20) Glucose Level 320 mg/dL (70-99) Lactic Acid Level 0.7 mmol/L (0.4-2.0) Calcium Level 10.0 mg/dL (8.5-10.1) Phosphorus Level 3.8 mg/dL (2.6-4.7) Magnesium Level 1.7 mg/dL (1.8-2.4) Total Bilirubin 0.4 mg/dL (0.2-1.0) Aspartate Amino Transf (AST/SGOT) 18 U/L (15-37) Alanine Aminotransferase (ALT/SGPT) 17 U/L (16-63) Alkaline Phosphatase 122 U/L (46-116) Total Protein 9.8 g/dL (6.4-8.2) Albumin 3.5 g/dL (3.4-5.0) Albumin/Globulin Ratio 0.6 (1.0-1.7) Acetone Level Sm pos (NEG) Influenza Type A Antigen Negative (NEGATIVE) Influenza Type B Antigen Negative (NEGATIVE) Test 01/24/18 04:05 01/24/18 05:25 01/24/18 08:00 01/24/18 08:02 Glucose (Fingerstick) 311 mg/dL (70-99) 251 mg/dL (70-99) White Blood Count 7.4 x10^3/uL (4.0-11.0) Red Blood Count 3.64 x10^6/uL (4.30-5.70) Hemoglobin 11.0 g/dL (13.0-17.5) Hematocrit 32.1 % (39.0-53.0) Mean Corpuscular Volume 88 fL (79-100) Mean Corpuscular Hemoglobin 30 pg (25-35) Mean Corpuscular Hemoglobin Concent 34 g/dL (31-37) Red Cell Distribution Width 13.5 % (11.5-14.5) Platelet Count 225 x10^3/uL (140-400) Neutrophils (%) (Auto) 86 % (31-73) Lymphocytes (%) (Auto) 9 % (24-48) Monocytes (%) (Auto) 5 % (0-9) Eosinophils (%) (Auto) 0 % (0-3) Basophils (%) (Auto) 0 % (0-3) Neutrophils # (Auto) 6.3 x10^3uL (1.8-7.7) Lymphocytes # (Auto) 0.6 x10^3/uL (1.0-4.8) Monocytes # (Auto) 0.3 x10^3/uL (0.0-1.1) Eosinophils # (Auto) 0.0 x10^3/uL (0.0-0.7) Basophils # (Auto) 0.0 x10^3/uL (0.0-0.2) Sodium Level 138 mmol/L (136-145) Potassium Level 4.8 mmol/L (3.5-5.1) Chloride Level 100 mmol/L (98-107) Carbon Dioxide Level 16 mmol/L (21-32) Anion Gap 22 (6-14) Blood Urea Nitrogen 31 mg/dL (8-26) Creatinine 2.3 mg/dL (0.7-1.3) Estimated GFR (Cockcroft-Gault) 30.2 BUN/Creatinine Ratio 13 (6-20) Glucose Level 350 mg/dL (70-99) Calcium Level 9.8 mg/dL (8.5-10.1) Total Bilirubin 0.4 mg/dL (0.2-1.0) Aspartate Amino Transf (AST/SGOT) 16 U/L (15-37) Alanine Aminotransferase (ALT/SGPT) 16 U/L (16-63) Alkaline Phosphatase 99 U/L (46-116) Total Protein 8.7 g/dL (6.4-8.2) Albumin 3.2 g/dL (3.4-5.0) Albumin/Globulin Ratio 0.6 (1.0-1.7) Magnesium Level 1.7 mg/dL (1.8-2.4) Troponin I Quantitative 0.019 ng/mL (0.000-0.055) Triglycerides Level 129 mg/dL (0-150) Cholesterol Level 175 mg/dL (0-200) LDL Cholesterol, Calculated 97 mg/dL (0-100) VLDL Cholesterol, Calculated 26 mg/dL (0-40) Non-HDL Cholesterol Calculated 123 mg/dL (0-129) HDL Cholesterol 52 mg/dL (40-60) Cholesterol/HDL Ratio 3.4 Thyroid Stimulating Hormone (TSH) 3.222 uIU/mL (0.358-3.74) Test 01/24/18 11:55 Glucose (Fingerstick) 211 mg/dL (70-99) Laboratory Tests Test 01/23/18 17:19 01/23/18 17:20 01/23/18 18:21 01/23/18 23:19 Glucose (Fingerstick) 310 mg/dL (70-99) 135 mg/dL (70-99) White Blood Count 9.6 x10^3/uL (4.0-11.0) Red Blood Count 4.01 x10^6/uL (4.30-5.70) Hemoglobin 12.5 g/dL (13.0-17.5) Hematocrit 35.1 % (39.0-53.0) Mean Corpuscular Volume 88 fL (79-100) Mean Corpuscular Hemoglobin 31 pg (25-35) Mean Corpuscular Hemoglobin Concent 36 g/dL (31-37) Red Cell Distribution Width 13.0 % (11.5-14.5) Platelet Count 266 x10^3/uL (140-400) Neutrophils (%) (Auto) 88 % (31-73) Lymphocytes (%) (Auto) 7 % (24-48) Monocytes (%) (Auto) 4 % (0-9) Eosinophils (%) (Auto) 0 % (0-3) Basophils (%) (Auto) 1 % (0-3) Neutrophils # (Auto) 8.4 x10^3uL (1.8-7.7) Lymphocytes # (Auto) 0.7 x10^3/uL (1.0-4.8) Monocytes # (Auto) 0.4 x10^3/uL (0.0-1.1) Eosinophils # (Auto) 0.0 x10^3/uL (0.0-0.7) Basophils # (Auto) 0.0 x10^3/uL (0.0-0.2) Segmented Neutrophils % 83 % (35-66) Lymphocytes % 13 % (24-48) Monocytes % 3 % (0-10) Eosinophils % 1 % (0-5) Platelet Estimate Adequate (ADEQUATE) Sodium Level 137 mmol/L (136-145) Potassium Level 4.5 mmol/L (3.5-5.1) Chloride Level 99 mmol/L (98-107) Carbon Dioxide Level 17 mmol/L (21-32) Anion Gap 21 (6-14) Blood Urea Nitrogen 30 mg/dL (8-26) Creatinine 2.3 mg/dL (0.7-1.3) Estimated GFR (Cockcroft-Gault) 30.2 BUN/Creatinine Ratio 13 (6-20) Glucose Level 320 mg/dL (70-99) Lactic Acid Level 0.7 mmol/L (0.4-2.0) Calcium Level 10.0 mg/dL (8.5-10.1) Phosphorus Level 3.8 mg/dL (2.6-4.7) Magnesium Level 1.7 mg/dL (1.8-2.4) Total Bilirubin 0.4 mg/dL (0.2-1.0) Aspartate Amino Transf (AST/SGOT) 18 U/L (15-37) Alanine Aminotransferase (ALT/SGPT) 17 U/L (16-63) Alkaline Phosphatase 122 U/L (46-116) Total Protein 9.8 g/dL (6.4-8.2) Albumin 3.5 g/dL (3.4-5.0) Albumin/Globulin Ratio 0.6 (1.0-1.7) Acetone Level Sm pos (NEG) Influenza Type A Antigen Negative (NEGATIVE) Influenza Type B Antigen Negative (NEGATIVE) Test 01/24/18 04:05 01/24/18 05:25 01/24/18 08:00 01/24/18 08:02 Glucose (Fingerstick) 311 mg/dL (70-99) 251 mg/dL (70-99) White Blood Count 7.4 x10^3/uL (4.0-11.0) Red Blood Count 3.64 x10^6/uL (4.30-5.70) Hemoglobin 11.0 g/dL (13.0-17.5) Hematocrit 32.1 % (39.0-53.0) Mean Corpuscular Volume 88 fL (79-100) Mean Corpuscular Hemoglobin 30 pg (25-35) Mean Corpuscular Hemoglobin Concent 34 g/dL (31-37) Red Cell Distribution Width 13.5 % (11.5-14.5) Platelet Count 225 x10^3/uL (140-400) Neutrophils (%) (Auto) 86 % (31-73) Lymphocytes (%) (Auto) 9 % (24-48) Monocytes (%) (Auto) 5 % (0-9) Eosinophils (%) (Auto) 0 % (0-3) Basophils (%) (Auto) 0 % (0-3) Neutrophils # (Auto) 6.3 x10^3uL (1.8-7.7) Lymphocytes # (Auto) 0.6 x10^3/uL (1.0-4.8) Monocytes # (Auto) 0.3 x10^3/uL (0.0-1.1) Eosinophils # (Auto) 0.0 x10^3/uL (0.0-0.7) Basophils # (Auto) 0.0 x10^3/uL (0.0-0.2) Sodium Level 138 mmol/L (136-145) Potassium Level 4.8 mmol/L (3.5-5.1) Chloride Level 100 mmol/L (98-107) Carbon Dioxide Level 16 mmol/L (21-32) Anion Gap 22 (6-14) Blood Urea Nitrogen 31 mg/dL (8-26) Creatinine 2.3 mg/dL (0.7-1.3) Estimated GFR (Cockcroft-Gault) 30.2 BUN/Creatinine Ratio 13 (6-20) Glucose Level 350 mg/dL (70-99) Calcium Level 9.8 mg/dL (8.5-10.1) Total Bilirubin 0.4 mg/dL (0.2-1.0) Aspartate Amino Transf (AST/SGOT) 16 U/L (15-37) Alanine Aminotransferase (ALT/SGPT) 16 U/L (16-63) Alkaline Phosphatase 99 U/L (46-116) Total Protein 8.7 g/dL (6.4-8.2) Albumin 3.2 g/dL (3.4-5.0) Albumin/Globulin Ratio 0.6 (1.0-1.7) Magnesium Level 1.7 mg/dL (1.8-2.4) Troponin I Quantitative 0.019 ng/mL (0.000-0.055) Triglycerides Level 129 mg/dL (0-150) Cholesterol Level 175 mg/dL (0-200) LDL Cholesterol, Calculated 97 mg/dL (0-100) VLDL Cholesterol, Calculated 26 mg/dL (0-40) Non-HDL Cholesterol Calculated 123 mg/dL (0-129) HDL Cholesterol 52 mg/dL (40-60) Cholesterol/HDL Ratio 3.4 Thyroid Stimulating Hormone (TSH) 3.222 uIU/mL (0.358-3.74) Test 01/24/18 11:55 Glucose (Fingerstick) 211 mg/dL (70-99) KELSEY DUNCAN MD Jan 24, 2018 15:31
[2018-01-24] MEDS: GABAPENTIN 100 MG CAPSULE. PO SCH ×2 (16:00→20:21)
--- NOTE | 2018-01-24 16:23 | RAD ---
CT of the abdomen and pelvis without contrast, 01/24/2018: HISTORY: Nausea and vomiting, right upper quadrant discomfort Multidetector CT imaging was performed without oral or IV contrast as requested. Mild patchy infiltrate is present in the left lung base. No pleural fluid is evident. Coronary artery calcifications are noted. The unopacified liver is unremarkable. No dense gallstones or pericholecystic edema is seen. The pancreas is atrophic. The spleen is within normal limits in size. There is severe atrophy and scarring involving both kidneys. There is no evidence of hydronephrosis. No adrenal abnormality is detected. A renal transplant is present in the left iliac fossa. It measures 11.5 x 6 cm. There is no evidence of hydronephrosis. There is mild perinephric edema related to this kidney. A smaller mass in the right iliac fossa is compatible with and additional older renal transplant. It demonstrates considerable atrophy and cortical thinning. There are moderate scattered vascular calcifications compatible with a history of diabetes. No abdominal or pelvic adenopathy is seen. Artifacts arising from an internal metallic fixation device in the left hip degrade image quality in the lower pelvis. The prostate gland is at the upper limits in size. The urinary bladder is distended. The stomach is distended with fluid. Fluid extends into a small hiatal hernia or mildly distended distal esophagus. No small or large bowel distention is seen. No free air or significant free fluid is evident in the abdomen or pelvis. IMPRESSION: 1. Severely atrophic and scarred bilateral kidneys. 2. Atrophic and scarred renal transplant in the right iliac fossa. 3. Mild perinephric edema related to a left iliac fossa renal transplant. 4. Borderline prostatic enlargement with distention of the urinary bladder. 5. Gastric distention with fluid. 6. Left basilar pulmonary infiltrates suggesting pneumonia. PQRS Compliance Statement: One or more of the following individualized dose reduction techniques were utilized for this examination: 1. Automated exposure control 2. Adjustment of the mA and/or kV according to patient size 3. Use of iterative reconstruction technique Electronically signed by: [place] MD (01/24/2018 4:20 PM) [facility]
[2018-01-24] MEDS: CARVEDILOL 12.5 MG TABLET. PO SCH (17:00)
[2018-01-24] MEDS: MYCOPHENOLATE MOFETIL IV SCH (20:19)
[2018-01-24] MEDS: DEXTROSE 5% IV SCH (20:19)
[2018-01-24] MEDS: TACROLIMUS 0.5 MG CAPSULE SL SCH (20:20)
[2018-01-24] MEDS: TACROLIMUS 1 MG CAPSULE SL SCH (20:20)
[2018-01-24] MEDS ORDERED: HYDROCHLOROTHIAZIDE 10 MG PO SCH (21:00)
--- NOTE | 2018-01-24 22:14 | HP ---
ADMIT DATE: 01/24/2018 CHIEF COMPLAINT: Hypertensive urgency, nausea, vomiting, diarrhea. HISTORY OF PRESENT ILLNESS: The patient is a pleasant 52-year-old male who presented to the ER with abdominal pain, nausea, vomiting and diarrhea. He has a history of a renal transplant and double BKAs because he has severe peripheral vascular disease from his diabetes. He has been having associated migraines for the past couple of days, rates his nausea at 10/10. They have given him 3-4 different nausea medications, he is still having some vomiting. He tried taking some home meds as well, that did not seem to work. His headache is rated at 9/10. He has been hospitalized at [facility] recently, but it does not look that did much for him. I have discussed the case with ER physician. We are going to admit the patient and consult GI, Cardiology and Nephrology. PAST MEDICAL HISTORY: Diabetes, hypertension, renal failure, renal transplant, double [id number] amputations, peripheral vascular disease. I think he used to smoke. ALLERGIES: AMOXICILLIN, LATEX, PROMETHAZINE AND SUCCINYLCHOLINE. FAMILY HISTORY: Diabetes. SOCIAL HISTORY: I think he lives alone. His daughter works here at our hospital. I think she checks on him. He does not drink, smoke or take drugs currently. MEDICATIONS: Reviewed, please refer to the MRAD. He is on 12 home medications including Plavix, clonidine, Coreg, amlodipine, oxycodone, hydrochlorothiazide, Protonix, insulin, CellCept, Prograf. REVIEW OF SYSTEMS: GENERAL: No history of weight change, weakness or fevers. He complains of high blood pressure. SKIN: No bruising, hair changes or rashes. EYES: No blurred, double or loss of vision. NOSE AND THROAT: No history of nosebleeds, hoarseness or sore throat. HEART: No history of palpitations, chest pain or shortness of breath on exertion. LUNGS: Denies cough, hemoptysis, wheezing or shortness of breath. GASTROINTESTINAL: Denies changes in appetite, nausea, vomiting, diarrhea or constipation. GENITOURINARY: No history of frequency, urgency, hesitancy or nocturia. NEUROLOGIC: He complains of a headache. PSYCHIATRIC: No history of panic, anxiety or depression. ENDOCRINE: No history of heat or cold intolerance, polyuria or polydipsia. EXTREMITIES: Denies muscle weakness, joint pain, pain on walking or stiffness. PHYSICAL EXAMINATION: VITAL SIGNS: Temperature is afebrile, pulse 100, respirations 18, blood pressure was as high as 228/93. We have now got it down into the 190s systolically. GENERAL: He is alert, complaining of a headache. He is nauseated, had some vomit in his emesis basin. His daughter is present. HEART: Normal S1, S2. LUNGS: Clear to auscultation. ABDOMEN: Soft. Decreased bowel sounds. EXTREMITIES: He has got bilateral lower extremity amputation. ENDOCRINE: No thyromegaly. LYMPHATICS: No cervical nodes. HEMATOPOIETIC: No bruising. LABORATORY DATA: White count 9, hemoglobin is 12, platelets 266. Electrolytes are pending. Glucose is 251. Troponin is 0.019. ASSESSMENT AND PLAN: Nausea, vomiting, diarrhea, accelerated hypertension, hyperglycemia in a middle-aged male who has the above noted comorbidities. The patient is being admitted. We are consulting Cardiology, Nephrology and GI. Gentle IV hydration, p.r.n. antiemetics. Frequent labs. We will try to resume his home meds. Serial enzymes, serial EKGs. PROGNOSIS: Guarded. NYASIA SHEPPARD DO DR: RUSH/silviano JOB#: [id number] / [id number]
[2018-01-25] VITALS (27 sets, daily range): BP systolic 124–191; BP diastolic 62–89
[2018-01-25] MEDS: METOPROLOL TARTRATE 5 MG/5 ML VIAL. IVP SCH ×2 (05:07→11:08)
[2018-01-25] MEDS: PROCHLORPERAZINE 10 MG/2 ML VIAL. IV PRN (05:23)
[2018-01-25] MEDS: IV NORMAL SALINE 1000ML BAG 1,000 ML IV SCH ×4 (07:30→22:35)
[2018-01-25] MEDS: CARVEDILOL 12.5 MG TABLET. PO SCH ×2 (08:00→17:00)
[2018-01-25] MEDS: amLODIPine BESYLATE 5 MG TABLET PO SCH (09:00)
[2018-01-25] MEDS ORDERED: TACROLIMUS 0.5 MG CAPSULE PO SCH (09:00)
[2018-01-25] MEDS: cloNIDine HCL 0.2 MG TABLET PO SCH ×2 (09:00→21:01)
[2018-01-25] MEDS: CLOPIDOGREL BISULFATE 75 MG TABLET PO SCH (09:00)
[2018-01-25] MEDS: GABAPENTIN 100 MG CAPSULE. PO SCH ×3 (09:00→21:00)
[2018-01-25] MEDS: PANTOPRAZOLE IV PUSH 40 MG VIAL. IVP SCH ×2 (09:34→17:35)
[2018-01-25] MEDS: fentaNYL PF VIAL 100 MCG/2 ML VIAL IV PRN ×3 (09:34→22:46)
[2018-01-25] MEDS: TACROLIMUS 1 MG CAPSULE SL SCH ×2 (09:35→21:02)
[2018-01-25] MEDS: ONDANSETRON PF 4 MG/2 ML VIAL. IV PRN ×2 (09:39→22:46)
[2018-01-25] MEDS: INSULIN GLARGINE 300 UNITS/3 ML INSULN.PEN. SQ SCH ×2 (10:01→23:01)
[2018-01-25] MEDS: INSULIN LISPRO 300 UNITS/3 ML INSULN.PEN. SQ SCH ×3 (10:04→17:45)
--- NOTE | 2018-01-25 10:27 | PDOC ---
Subjective: Subjective: A little better today. Vomited around 10:00 last night, nausea ongoing today. Has some RUQ pain under ribs. Has NPO orders but apparently taking some liquids - says he had a little bit of coffee this morning. RN present - says he feels sick after taking liquids. NG attempted 5 times, kept coiling and then his nose bled. Says urinating okay. Objective: Vital Signs: Vital Signs Date Time Temp Pulse Resp B/P (MAP) Pulse Ox O2 Delivery O2 Flow Rate FiO2 01/25/18 06:44 112 153/72 (99) 01/25/18 03:58 99.0 20 96 Room Air 99.0 Labs: Laboratory Tests Test 01/24/18 11:55 01/24/18 17:08 01/24/18 20:26 01/25/18 02:45 Glucose (Fingerstick) 211 mg/dL 269 mg/dL 271 mg/dL 296 mg/dL Test 01/25/18 07:21 Glucose (Fingerstick) 312 mg/dL Imaging: CT A/P IMPRESSION: 1. Severely atrophic and scarred bilateral kidneys. 2. Atrophic and scarred renal transplant in the right iliac fossa. 3. Mild perinephric edema related to a left iliac fossa renal transplant. 4. Borderline prostatic enlargement with distention of the urinary bladder. 5. Gastric distention with fluid. 6. Left basilar pulmonary infiltrates suggesting pneumonia. PE: GEN: NAD LUNGS: room air HEART: tachycardic ABD: quiet, vague RUQ/under and over right rib tenderness NEURO/PSYCH: A & O 3 A/P: Nausea, distended stomach on CT H/o GERD and DM HTN - better -- Strict NPO now. EGD today - therapeutic/suction, r/o GOO. ELIOT LAMB Jan 25, 2018 10:27
--- NOTE | 2018-01-25 10:57 | PDOC ---
Renal-Progress Notes Subjective Notes Notes STABLE History of Present Illness Hx of present illness BETTER WITH LESS N/V Vitals Vitals Vital Signs Date Time Temp Pulse Resp B/P (MAP) Pulse Ox O2 Delivery O2 Flow Rate FiO2 01/25/18 06:44 112 153/72 (99) 01/25/18 03:58 99.0 20 96 Room Air 99.0 Weight Weight [ ] I.O. Intake and Output Intake and Output 01/25/18 07:00 Intake Total 242 ml Output Total 1150 ml Balance -908 ml Intake Oral 200 ml IV Total 42 ml Output Urine Total 1150 ml Labs Labs Laboratory Tests Test 01/24/18 11:55 01/24/18 17:08 01/24/18 20:26 01/25/18 02:45 Glucose (Fingerstick) 211 mg/dL (70-99) 269 mg/dL (70-99) 271 mg/dL (70-99) 296 mg/dL (70-99) Test 01/25/18 07:21 Glucose (Fingerstick) 312 mg/dL (70-99) Review of Systems Constitutional: yes: weakness, alert, oriented Ears/Nose/Throat: Yes: no symptom reported Eyes: Yes: no symptom reported Pulmonary: Yes no symptom reported Cardiovascular: Yes no symptom reported Gastrointestional: Yes: nausea, vomiting Genitourinary: Yes: no symptom reported Musculoskeletal: Yes: no symptom reported Skin: Yes no symptom reported Psychiatric/Neurological: Yes: no symptom reported Endocrine: Yes: no symptom reported Physical Exam General Appearance: no apparent distress Skin: warm Respiratory: bilateral CTA Heart: S1S2, no thrills Abdomen: soft, bowel sounds present Genitourinary: bladder flat Extremities: pulses present Musculoskeletal: Osteoarthritis Assessment Assessment IMP HX OF RENAL TX 2007 CKD STAGE 3 WITH CR OF ABOUT 1.5 JAMAL WITH CR OF 2.3 DEHYDRATION DUE TO N/V DM II HTN HX PLAN PROGRAF LEVEL PENDING CONT WITH IVF'S PT WILL HAVE EGD WILL FOLLOW UPDATED FAMILY MOR PADILLA MD Jan 25, 2018 10:57
[2018-01-25 11:06] LABS: HEMATOCRIT 28.2 % (39.0-53.0); HEMOGLOBIN 9.7 g/dL (13.0-17.5); RED BLOOD COUNT 3.19 x10^6/uL (4.30-5.70); RED CELL DISTRIBUTION WIDTH 13.1 % (11.5-14.5); WHITE BLOOD COUNT 10.5 x10^3/uL (4.0-11.0)
[2018-01-25 11:25] LABS: CALCIUM 9.4 mg/dL (8.5-10.1); CREATININE 2.3 mg/dL (0.7-1.3); GFR 30.2; MAGNESIUM 2.2 mg/dL (1.8-2.4); PHOSPHORUS 3.9 mg/dL (2.6-4.7); POTASSIUM 4.4 mmol/L (3.5-5.1)
--- NOTE | 2018-01-25 11:47 | PDOC ---
PROGRESS NOTES Chief Complaint Chief Complaint Uncontrolled HTN JAMAL due to dehydration MARTÍNEZ: migraine? H/o renal transplant: 2007 H/o DM1/HLP: per PCP H/o CAD History of Present Illness History of Present Illness Pt seen and examined. Pt resting in bed. Family member at bedside. OSMEL RN. Discussed plan with pt and family member. Pt says that he is feeling better today and has not vomited since last night. He is still having HAs. Vitals Vitals Vital Signs Date Time Temp Pulse Resp B/P (MAP) Pulse Ox O2 Delivery O2 Flow Rate FiO2 01/25/18 11:11 98.8 116 159/72 (101) 98 98.8 01/25/18 03:58 20 Room Air Physical Exam General: Alert, Oriented X3, Cooperative, No acute distress Heart: Regular rate, Normal S1 Lungs: Clear Abdomen: Soft, Other (TTP at RUQ) Extremities: No clubbing, No cyanosis Skin: No breakdown, No significant lesion Labs LABS Laboratory Tests Test 01/24/18 11:55 01/24/18 17:08 01/24/18 20:26 01/25/18 02:45 Glucose (Fingerstick) 211 mg/dL (70-99) 269 mg/dL (70-99) 271 mg/dL (70-99) 296 mg/dL (70-99) Test 01/25/18 07:21 01/25/18 10:35 Glucose (Fingerstick) 312 mg/dL (70-99) White Blood Count 10.5 x10^3/uL (4.0-11.0) Red Blood Count 3.19 x10^6/uL (4.30-5.70) Hemoglobin 9.7 g/dL (13.0-17.5) Hematocrit 28.2 % (39.0-53.0) Mean Corpuscular Volume 89 fL (79-100) Mean Corpuscular Hemoglobin 31 pg (25-35) Mean Corpuscular Hemoglobin Concent 35 g/dL (31-37) Red Cell Distribution Width 13.1 % (11.5-14.5) Platelet Count 253 x10^3/uL (140-400) Sodium Level 137 mmol/L (136-145) Potassium Level 4.4 mmol/L (3.5-5.1) Chloride Level 102 mmol/L (98-107) Carbon Dioxide Level 21 mmol/L (21-32) Anion Gap 14 (6-14) Blood Urea Nitrogen 39 mg/dL (8-26) Creatinine 2.3 mg/dL (0.7-1.3) Estimated GFR (Cockcroft-Gault) 30.2 Glucose Level 356 mg/dL (70-99) Calcium Level 9.4 mg/dL (8.5-10.1) Phosphorus Level 3.9 mg/dL (2.6-4.7) Magnesium Level 2.2 mg/dL (1.8-2.4) Review of Systems Review of Systems Pt denies CP and SOA. Pt admits to MARTÍNEZ and abdominal pain. Assessment and Plan Assessmemt and Plan Problems Medical Problems: (1) Hypertensive urgency Status: Acute (2) Intractable nausea and vomiting Status: Acute (3) Migraine headache Status: Acute Assessment: Uncontrolled HTN JAMAL due to dehydration MARTÍNEZ: migraine? H/o renal transplant: 2007 H/o DM1/HLP: per PCP H/o CAD Plan: Brain MRI pending Echo pending Cont NPO Increase metoprolol from 5 mg to 7.5 mg q6h Cardiac monitoring Monitor labs DVT ppx Comment Review of Relevant I have reviewed the following items nadiya (where applicable) has been applied. Labs Laboratory Tests Test 01/23/18 17:19 01/23/18 17:20 01/23/18 18:21 01/23/18 23:19 Glucose (Fingerstick) 310 mg/dL (70-99) 135 mg/dL (70-99) White Blood Count 9.6 x10^3/uL (4.0-11.0) Red Blood Count 4.01 x10^6/uL (4.30-5.70) Hemoglobin 12.5 g/dL (13.0-17.5) Hematocrit 35.1 % (39.0-53.0) Mean Corpuscular Volume 88 fL (79-100) Mean Corpuscular Hemoglobin 31 pg (25-35) Mean Corpuscular Hemoglobin Concent 36 g/dL (31-37) Red Cell Distribution Width 13.0 % (11.5-14.5) Platelet Count 266 x10^3/uL (140-400) Neutrophils (%) (Auto) 88 % (31-73) Lymphocytes (%) (Auto) 7 % (24-48) Monocytes (%) (Auto) 4 % (0-9) Eosinophils (%) (Auto) 0 % (0-3) Basophils (%) (Auto) 1 % (0-3) Neutrophils # (Auto) 8.4 x10^3uL (1.8-7.7) Lymphocytes # (Auto) 0.7 x10^3/uL (1.0-4.8) Monocytes # (Auto) 0.4 x10^3/uL (0.0-1.1) Eosinophils # (Auto) 0.0 x10^3/uL (0.0-0.7) Basophils # (Auto) 0.0 x10^3/uL (0.0-0.2) Segmented Neutrophils % 83 % (35-66) Lymphocytes % 13 % (24-48) Monocytes % 3 % (0-10) Eosinophils % 1 % (0-5) Platelet Estimate Adequate (ADEQUATE) Sodium Level 137 mmol/L (136-145) Potassium Level 4.5 mmol/L (3.5-5.1) Chloride Level 99 mmol/L (98-107) Carbon Dioxide Level 17 mmol/L (21-32) Anion Gap 21 (6-14) Blood Urea Nitrogen 30 mg/dL (8-26) Creatinine 2.3 mg/dL (0.7-1.3) Estimated GFR (Cockcroft-Gault) 30.2 BUN/Creatinine Ratio 13 (6-20) Glucose Level 320 mg/dL (70-99) Lactic Acid Level 0.7 mmol/L (0.4-2.0) Calcium Level 10.0 mg/dL (8.5-10.1) Phosphorus Level 3.8 mg/dL (2.6-4.7) Magnesium Level 1.7 mg/dL (1.8-2.4) Total Bilirubin 0.4 mg/dL (0.2-1.0) Aspartate Amino Transf (AST/SGOT) 18 U/L (15-37) Alanine Aminotransferase (ALT/SGPT) 17 U/L (16-63) Alkaline Phosphatase 122 U/L (46-116) Total Protein 9.8 g/dL (6.4-8.2) Albumin 3.5 g/dL (3.4-5.0) Albumin/Globulin Ratio 0.6 (1.0-1.7) Acetone Level Sm pos (NEG) Influenza Type A Antigen Negative (NEGATIVE) Influenza Type B Antigen Negative (NEGATIVE) Test 01/24/18 04:05 01/24/18 05:25 01/24/18 08:00 01/24/18 08:02 Glucose (Fingerstick) 311 mg/dL (70-99) 251 mg/dL (70-99) White Blood Count 7.4 x10^3/uL (4.0-11.0) Red Blood Count 3.64 x10^6/uL (4.30-5.70) Hemoglobin 11.0 g/dL (13.0-17.5) Hematocrit 32.1 % (39.0-53.0) Mean Corpuscular Volume 88 fL (79-100) Mean Corpuscular Hemoglobin 30 pg (25-35) Mean Corpuscular Hemoglobin Concent 34 g/dL (31-37) Red Cell Distribution Width 13.5 % (11.5-14.5) Platelet Count 225 x10^3/uL (140-400) Neutrophils (%) (Auto) 86 % (31-73) Lymphocytes (%) (Auto) 9 % (24-48) Monocytes (%) (Auto) 5 % (0-9) Eosinophils (%) (Auto) 0 % (0-3) Basophils (%) (Auto) 0 % (0-3) Neutrophils # (Auto) 6.3 x10^3uL (1.8-7.7) Lymphocytes # (Auto) 0.6 x10^3/uL (1.0-4.8) Monocytes # (Auto) 0.3 x10^3/uL (0.0-1.1) Eosinophils # (Auto) 0.0 x10^3/uL (0.0-0.7) Basophils # (Auto) 0.0 x10^3/uL (0.0-0.2) Sodium Level 138 mmol/L (136-145) Potassium Level 4.8 mmol/L (3.5-5.1) Chloride Level 100 mmol/L (98-107) Carbon Dioxide Level 16 mmol/L (21-32) Anion Gap 22 (6-14) Blood Urea Nitrogen 31 mg/dL (8-26) Creatinine 2.3 mg/dL (0.7-1.3) Estimated GFR (Cockcroft-Gault) 30.2 BUN/Creatinine Ratio 13 (6-20) Glucose Level 350 mg/dL (70-99) Calcium Level 9.8 mg/dL (8.5-10.1) Total Bilirubin 0.4 mg/dL (0.2-1.0) Aspartate Amino Transf (AST/SGOT) 16 U/L (15-37) Alanine Aminotransferase (ALT/SGPT) 16 U/L (16-63) Alkaline Phosphatase 99 U/L (46-116) Total Protein 8.7 g/dL (6.4-8.2) Albumin 3.2 g/dL (3.4-5.0) Albumin/Globulin Ratio 0.6 (1.0-1.7) Magnesium Level 1.7 mg/dL (1.8-2.4) Troponin I Quantitative 0.019 ng/mL (0.000-0.055) Triglycerides Level 129 mg/dL (0-150) Cholesterol Level 175 mg/dL (0-200) LDL Cholesterol, Calculated 97 mg/dL (0-100) VLDL Cholesterol, Calculated 26 mg/dL (0-40) Non-HDL Cholesterol Calculated 123 mg/dL (0-129) HDL Cholesterol 52 mg/dL (40-60) Cholesterol/HDL Ratio 3.4 Thyroid Stimulating Hormone (TSH) 3.222 uIU/mL (0.358-3.74) Test 01/24/18 11:55 01/24/18 17:08 01/24/18 20:26 01/25/18 02:45 Glucose (Fingerstick) 211 mg/dL (70-99) 269 mg/dL (70-99) 271 mg/dL (70-99) 296 mg/dL (70-99) Test 01/25/18 07:21 01/25/18 10:35 Glucose (Fingerstick) 312 mg/dL (70-99) White Blood Count 10.5 x10^3/uL (4.0-11.0) Red Blood Count 3.19 x10^6/uL (4.30-5.70) Hemoglobin 9.7 g/dL (13.0-17.5) Hematocrit 28.2 % (39.0-53.0) Mean Corpuscular Volume 89 fL (79-100) Mean Corpuscular Hemoglobin 31 pg (25-35) Mean Corpuscular Hemoglobin Concent 35 g/dL (31-37) Red Cell Distribution Width 13.1 % (11.5-14.5) Platelet Count 253 x10^3/uL (140-400) Sodium Level 137 mmol/L (136-145) Potassium Level 4.4 mmol/L (3.5-5.1) Chloride Level 102 mmol/L (98-107) Carbon Dioxide Level 21 mmol/L (21-32) Anion Gap 14 (6-14) Blood Urea Nitrogen 39 mg/dL (8-26) Creatinine 2.3 mg/dL (0.7-1.3) Estimated GFR (Cockcroft-Gault) 30.2 Glucose Level 356 mg/dL (70-99) Calcium Level 9.4 mg/dL (8.5-10.1) Phosphorus Level 3.9 mg/dL (2.6-4.7) Magnesium Level 2.2 mg/dL (1.8-2.4) Laboratory Tests Test 01/24/18 11:55 01/24/18 17:08 01/24/18 20:26 01/25/18 02:45 Glucose (Fingerstick) 211 mg/dL (70-99) 269 mg/dL (70-99) 271 mg/dL (70-99) 296 mg/dL (70-99) Test 01/25/18 07:21 01/25/18 10:35 Glucose (Fingerstick) 312 mg/dL (70-99) White Blood Count 10.5 x10^3/uL (4.0-11.0) Red Blood Count 3.19 x10^6/uL (4.30-5.70) Hemoglobin 9.7 g/dL (13.0-17.5) Hematocrit 28.2 % (39.0-53.0) Mean Corpuscular Volume 89 fL (79-100) Mean Corpuscular Hemoglobin 31 pg (25-35) Mean Corpuscular Hemoglobin Concent 35 g/dL (31-37) Red Cell Distribution Width 13.1 % (11.5-14.5) Platelet Count 253 x10^3/uL (140-400) Sodium Level 137 mmol/L (136-145) Potassium Level 4.4 mmol/L (3.5-5.1) Chloride Level 102 mmol/L (98-107) Carbon Dioxide Level 21 mmol/L (21-32) Anion Gap 14 (6-14) Blood Urea Nitrogen 39 mg/dL (8-26) Creatinine 2.3 mg/dL (0.7-1.3) Estimated GFR (Cockcroft-Gault) 30.2 Glucose Level 356 mg/dL (70-99) Calcium Level 9.4 mg/dL (8.5-10.1) Phosphorus Level 3.9 mg/dL (2.6-4.7) Magnesium Level 2.2 mg/dL (1.8-2.4) Medications Current Medications Sodium Chloride 1,000 ml @ 1,000 mls/hr Q1H IV Last administered on at 17:54; Start 01/23/18 at 17:21; Stop 01/23/18 at 18:20; Status DC Prochlorperazine Edisylate (Compazine) 10 mg 1X ONCE IV Last administered on 01/23/18at 17:55; Start 01/23/18 at 17:30; Stop 01/23/18 at 17:31; Status DC Diphenhydramine HCl (Benadryl) 25 mg 1X ONCE IVP Last administered on at 17:57; Start 01/23/18 at 17:30; Stop 01/23/18 at 17:31; Status DC Metoclopramide HCl (Reglan Vial) 10 mg 1X ONCE IV Last administered on at 19:24; Start 01/23/18 at 19:15; Stop 01/23/18 at 19:17; Status DC Diphenhydramine HCl (Benadryl) 25 mg 1X ONCE IVP Last administered on at 19:25; Start 01/23/18 at 19:15; Stop 01/23/18 at 19:17; Status DC Metoprolol Tartrate (Lopressor Vial) 5 mg 1X ONCE IVP Last administered on at 19:55; Start 01/23/18 at 19:45; Stop 01/23/18 at 19:46; Status DC Insulin Human Regular (HumuLIN R VIAL) 5 unit 1X ONCE IV Last administered on 01/23/18at 19:55; Start 01/23/18 at 19:45; Stop 01/23/18 at 19:46; Status DC Labetalol HCl (Normodyne Iv Push) 10 mg 1X ONCE IVP ; Start 01/23/18 at 20:30 ; Stop 01/23/18 at 20:31; Status DC Labetalol HCl (Normodyne Iv Push) 10 mg 1X ONCE IVP Last administered on 01/23at 22:29; Start 01/23/18 at 22:00; Stop 01/23/18 at 22:04; Status DC Ondansetron HCl (Zofran) 4 mg PRN Q8HRS PRN IV NAUSEA/VOMITING Last administered on 01/24/18at 00:16; Start 01/23/18 at 22:45; Stop 01/24/18 at 03 :05; Status DC Fentanyl Citrate (Fentanyl 2ml Vial) 50 mcg PRN Q2HR PRN IV PAIN Last administered on 01/24/18at 19:48; Start 01/23/18 at 22:45; Stop 01/24/18 at 22 :44; Status DC Sodium Chloride 1,000 ml @ 100 mls/hr Q10H IV Last administered on 01/24/18at 19:56; Start 01/23/18 at 22:37; Stop 01/24/18 at 22:36; Status DC Labetalol HCl (Normodyne Iv Push) 10 mg PRN Q30MIN PRN IVP SBP>180 Last administered on 01/24/18at 00:07; Start 01/23/18 at 22:45; Stop 01/24/18 at 00 :49; Status DC Insulin Human Lispro (HumaLOG) 0-5 UNITS TIDWMEALS SQ Last administered on at 10:04; Start 01/24/18 at 08:00 Dextrose (Dextrose 50%-Water Syringe) 12.5 gm PRN Q15MIN PRN IV SEE COMMENTS; Start 01/23/18 at 23:00 Labetalol HCl (Normodyne Iv Push) 20 mg PRN Q2HR PRN IVP HYPERTENSION, SEE COMMENTS Last administered on 01/24/18at 02:12; Start 01/24/18 at 00:45 Carvedilol (Coreg) 6.25 mg 1X ONCE PO ; Start 01/24/18 at 00:45; Stop at 00:49; Status DC Amlodipine Besylate (Norvasc) 5 mg 1X ONCE PO Last administered on 01/24/18at 01:00; Start 01/24/18 at 00:45; Stop 01/24/18 at 00:49; Status DC Oxycodone/ Acetaminophen (Percocet 5/325) 1 tab PRN Q4HRS PRN PO PAIN; Start 01/24/18 at 01:00 Carvedilol (Coreg) 12.5 mg 1X ONCE PO Last administered on 01/24/18at 01:05; Start 01/24/18 at 01:00; Stop 01/24/18 at 01:04; Status DC Nicardipine HCl 50 mg/Sodium Chloride 270 ml @ 32.4 mls/hr CONT PRN IV SEE I/ O RECORD Last administered on 01/24/18at 03:15; Start 01/24/18 at 03:00 Acetaminophen (Tylenol) 650 mg PRN Q6HRS PRN PEG MILD PAIN / TEMP; Start 01/24 at 03:15; Status Cancel Ondansetron HCl (Zofran) 4 mg PRN Q6HRS PRN IV NAUSEA/VOMITING, 1ST CHOICE Last administered on 01/25/18at 09:39; Start 01/24/18 at 03:15 Metoclopramide HCl (Reglan Vial) 5 mg PRN Q6HRS PRN IV NAUSEA/VOMITING, 3RD CHOICE Last administered on 01/24/18at 12:00; Start 01/24/18 at 03:15 Prochlorperazine Edisylate (Compazine) 10 mg PRN Q6HRS PRN IV NAUSEA/VOMITING, 2ND CHOICE Last administered on 01/25/18at 05:23; Start 01/24/18 at 03:15 Pantoprazole Sodium (Protonix) 40 mg 1X ONCE PO Last administered on at 03:13; Start 01/24/18 at 03:30; Stop 01/24/18 at 03:31; Status DC Acetaminophen (Tylenol) 650 mg PRN Q6HRS PRN PO MIGRAINE HEADACHE; Start 01/24 at 03:15 Insulin Human Lispro (HumaLOG) 10 units 1X ONCE SQ Last administered on at 05:09; Start 01/24/18 at 05:00; Stop 01/24/18 at 05:02; Status DC Magnesium Sulfate/ Dextrose 100 ml @ 100 mls/hr 1X ONCE IV Last administered on 01/24/18at 12:01; Start 01/24/18 at 09:15; Stop 01/24/18 at 10:14; Status DC Metoprolol Tartrate (Lopressor Vial) 5 mg Q6HRS IVP Last administered on at 11:08; Start 01/24/18 at 11:00; Stop 01/25/18 at 11:41; Status DC Trimethobenzamide HCl (Tigan Im) 200 mg PRN Q6HRS PRN IM NAUSEA/VOMITING; Start 01/24/18 at 11:00 Morphine Sulfate (Morphine Sulfate) 2 mg PRN Q2HR PRN IV PAIN; Start 01/24/18 at 11:00 Amlodipine Besylate (Norvasc) 5 mg DAILY PO ; Start 01/24/18 at 11:30 Clonidine HCl (Catapres) 0.2 mg BID PO Last administered on 01/24/18at 20:19; Start 01/24/18 at 11:30 Clopidogrel Bisulfate (Plavix) 75 mg DAILY PO Last administered on 01/24/18at 14:12; Start 01/24/18 at 11:30 Insulin Glargine (Lantus) 4 units DAILYWBKFT SQ ; Start 01/24/18 at 11:30; Stop 01/24/18 at 11:30; Status DC Insulin Glargine (Lantus) 4 units QHS SQ ; Start 01/24/18 at 21:00; Status UNV Carvedilol (Coreg) 25 mg BIDWMEALS PO ; Start 01/24/18 at 17:00 Non-Formulary Medication (Hydrochlorothiazide (Hydrochlorothiazide Capsule ) ) 10 mg BID PO ; Start 01/24/18 at 21:00; Stop 01/24/18 at 21:00; Status DC Mycophenolate Mofetil (Cellcept) 250 mg BID PO Last administered on 01/24/18at 12:01; Start 01/24/18 at 12:00; Stop 01/24/18 at 15:58; Status DC Pantoprazole Sodium (Protonix) 40 mg DAILYAC PO ; Start 01/24/18 at 11:30; Stop 01/24/18 at 12:01; Status DC Tacrolimus (Prograf) 2 mg BID PO Last administered on 01/24/18at 12:02; Start 01/24/18 at 12:00; Stop 01/24/18 at 13:07; Status DC Insulin Glargine (Lantus) 4 units BID SQ Last administered on 01/25/18at 10:01 ; Start 01/24/18 at 11:30 Pantoprazole Sodium (PROTONIX VIAL for IV PUSH) 40 mg DAILYAC IVP Last administered on 01/25/18at 09:34; Start 01/24/18 at 13:00 Tacrolimus (Prograf) 4 mg DAILY PO ; Start 01/25/18 at 09:00; Stop 01/25/18 at 09:00; Status DC Tacrolimus (Prograf) 3 mg QHS PO ; Start 01/24/18 at 21:00; Stop 01/24/18 at 21:00; Status DC Tacrolimus (Prograf) 2 mg DAILY SL Last administered on 01/25/18at 09:35; Start 01/25/18 at 09:00 Tacrolimus (Prograf) 1 mg QHS SL Last administered on 01/24/18at 20:20; Start 01/24/18 at 21:00 Sodium Chloride (Saline Mist Nasal) 1 bryan PRN Q1HR PRN NS NASAL CONGESTION; Start 01/24/18 at 15:00; Stop 01/24/18 at 17:28; Status DC Gabapentin (Neurontin) 100 mg TID PO ; Start 01/24/18 at 16:00 Mycophenolate Mofetil 250 mg/ Dextrose 42 ml @ 21 mls/hr Q12H IV Last administered on 01/24/18at 20:19; Start 01/24/18 at 21:00 Tacrolimus (Prograf) 0.5 mg QHS SL Last administered on 01/24/18at 20:20; Start 01/24/18 at 21:00 Sodium Chloride (Saline Mist Nasal) 1 bryan PRN Q1HR PRN NS NASAL CONGESTION; Start 01/24/18 at 17:30 Sodium Chloride 1,000 ml @ 75 mls/hr [id number] IV ; Start 01/25/18 at 07:30 Fentanyl Citrate (Fentanyl 2ml Vial) 50 mcg PRN Q3HRS PRN IV SEVERE PAIN Last administered on 01/25/18at 09:34; Start 01/25/18 at 09:15 Sodium Chloride 1,000 ml @ 75 mls/hr [id number] IV Last administered on at 09:35; Start 01/25/18 at 09:15 Metoprolol Tartrate (Lopressor Vial) 7.5 mg Q6HRS IVP ; Start 01/25/18 at 18:00 Active Scripts Active Oxycodone-Acetaminophen 5-325 (Oxycodone Hcl/Acetaminophen) 1 Each Tablet 1 Tab PO PRN Q4HRS PRN Reported Prograf (Tacrolimus) 1 Mg Capsule 3 Cap PO QHS Prograf (Tacrolimus) 1 Mg Capsule 4 Cap PO DAILY Lantus Solostar (Insulin Glargine,Hum.rec.anlog) 100 Unit/1 Ml Insuln.pen 4 Unit SQ DAILYWBKFT Lantus Solostar (Insulin Glargine,Hum.rec.anlog) 100 Unit/1 Ml Insuln.pen 4 Unit SQ QHS Amlodipine Besylate 5 Mg Tablet 5 Mg PO DAILY Clonidine Hcl 0.2 Mg Tablet 1 Tab PO BID Clopidogrel (Clopidogrel Bisulfate) 75 Mg Tablet 1 Tab PO DAILY Cellcept (Mycophenolate Mofetil) 250 Mg Capsule 1 Cap PO BID Pantoprazole Sodium 20 Mg Tablet.dr 20 Mg PO DAILY Hydrochlorothiazide Capsule (Hydrochlorothiazide) 12.5 Mg Capsule 10 Mg PO BID Carvedilol 25 Mg Tablet 2 Tab PO DAILYBFRSUP Vitals/I & O Vital Sign - Last 24 Hours 01/24/18 01/24/18 01/24/18 01/24/18 11:52 12:00 14:29 15:00 Temp 98.9 98.9 Pulse 124 125 120 123 Resp 20 20 20 B/P (MAP) 184/81 (115) 190/65 (106) 171/86 (114) Pulse Ox 98 O2 Delivery Room Air Room Air Room Air 01/24/18 01/24/18 01/24/18 01/24/18 16:35 17:29 18:29 18:45 Pulse 124 120 128 130 Resp 20 20 20 B/P (MAP) 192/72 (112) 183/82 (115) 187/81 (116) O2 Delivery Room Air Room Air Room Air 01/24/18 01/24/18 01/24/1818 19:28 19:48 20:00 20:18 Temp 98.5 98.5 Pulse 119 Resp 18 20 18 B/P (MAP) 174/82 (112) Pulse Ox 98 98 98 O2 Delivery Room Air Room Air Room Air Room Air 01/24/18 01/24/18 01/24/18 01/24/18 20:19 20:29 22:29 23:35 Pulse 119 120 120 110 Resp 20 20 20 B/P (MAP) 174/82 170/67 (101) 142/69 (93) 177/83 (114) O2 Delivery Room Air Room Air Room Air 01/24/18 01/24/18 01/25/18 01/25/18 23:40 23:58 00:29 01:32 Temp 99.3 99.3 Pulse 110 112 111 Resp 20 20 B/P (MAP) 177/83 180/79 (112) 186/74 (111) Pulse Ox 98 O2 Delivery Room Air Room Air Room Air 01/25/18 01/25/18 01/25/18 01/25/18 03:34 03:58 04:34 05:07 Temp 99.0 99.0 Pulse 111 119 122 122 Resp 20 20 B/P (MAP) 183/79 (113) 170/80 (110) 189/87 (121) 189/87 Pulse Ox 96 O2 Delivery Room Air Room Air 01/25/18 01/25/18 01/25/18 01/25/18 05:30 06:44 11:08 11:11 Temp 98.8 98.8 Pulse 108 112 120 116 B/P (MAP) 167/77 (107) 153/72 (99) 159/72 (101) Pulse Ox 98 Intake and Output 01/24/18 01/24/18 01/25/18 15:00 23:00 07:00 Intake Total 100 ml 42 ml 100 ml Output Total 350 ml 800 ml Balance 100 ml -308 ml -700 ml NYASIA SHEPPARD K III DO Jan 25, 2018 11:47
--- NOTE | 2018-01-25 11:52 | CARD ---
MR#: [id number] Date of Study: 01/25/2018 Ordering Physician: MARLENE PHILLIPS, Referring Physician: LE BOLDEN Tech: Nica Daniels APPROVED REPORT EXAM: Two-dimensional and M-mode echocardiogram with Doppler and color Doppler. Other Information Quality : GoodHR: 114bpm Rhythm : NSR INDICATION Hypertension/HCVD 2D DIMENSIONS RVDd2.3 (2.9-3.5cm)Left Atrium(2D)3.9 (1.6-4.0cm) IVSd1.4 (0.7-1.1cm)Aortic Root(2D)2.7 (2.0-3.7cm) LVDd4.9 (3.9-5.9cm)LVOT Diameter1.9 (1.8-2.4cm) PWd1.0 (0.7-1.1cm)LVDs4.0 (2.5-4.0cm) FS (%) 19.5 %SV46.0 ml Aortic Valve AoV Peak Bi.169.3cm/sAoV VTI31.5cm AO Peak GR.11.5mmHgLVOT Peak Bi.134.7cm/s AO Mean GR.8mmHgAVA (VMAX)2.32cm2 Pulmonary Valve PV Peak Qdhadqvd102.0cm/s Tricuspid Valve TR P. [id number]/sRAP [id number] TR Peak Gr.[id number] Pulmonary Vein S1 Mkkxbouo87.0cm/sD2 Njxzwqws89.0cm/s PVa [id number] LEFT VENTRICLE The left ventricle is normal size. There is mild concentric left ventricular hypertrophy. The left ve ntricular systolic function is normal and the ejection fraction is within normal range. The Ejection Fraction is 55-60%. There is normal LV segmental wall motion. RIGHT VENTRICLE The right ventricle is normal size. There is normal right ventricular wall thickness. The right ventr icular systolic function is normal. ATRIA The left atrium size is normal. The right atrium size is normal. The interatrial septum is intact wit h no evidence for an atrial septal defect or patent foramen ovale as noted on 2-D or Doppler imaging. AORTIC VALVE The aortic valve is normal in structure and function. Doppler and Color Flow revealed trace aortic re gurgitation. There is no significant aortic valvular stenosis. MITRAL VALVE The mitral valve is normal in structure and function. There is no mitral valve stenosis. Doppler and Color-flow revealed trace to mild mitral regurgitation. TRICUSPID VALVE The tricuspid valve is normal in structure and function. Doppler and Color Flow revealed trace tricus pid regurgitation. PULMONIC VALVE The pulmonary valve is normal in structure and function. Doppler and Color Flow revealed trace pulmon ic valvular regurgitation. GREAT VESSELS The aortic root is normal in size. The IVC is normal in size and collapses >50% with inspiration. PERICARDIAL EFFUSION There is no evidence of significant pericardial effusion. Critical Notification Critical Value: No <Conclusion> The left ventricle is normal size. The left ventricular systolic function is normal and the ejection fraction is within normal range. The Ejection Fraction is 55-60%. There is mild concentric left ventricular hypertrophy. There is no significant aortic valvular stenosis. Doppler and Color Flow revealed trace aortic regurgitation. Doppler and Color-flow revealed trace to mild mitral regurgitation. Doppler and Color Flow revealed trace tricuspid regurgitation. Signed by : Carl Tenorio MD Electronically Approved : 01/25/2018 11:51:55
[2018-01-25] MEDS: DEXTROSE 5% IV SCH ×2 (11:53→22:46)
[2018-01-25] MEDS: METOCLOPRAMIDE HCL 10 MG/2 ML VIAL. IV PRN (11:53)
[2018-01-25] MEDS: MYCOPHENOLATE MOFETIL IV SCH ×2 (11:53→22:46)
--- NOTE | 2018-01-25 12:44 | RAD ---
MRI of the brain without contrast 01/25/2018 Clinical History: Persistent headaches. Hypertension. Weakness. Technique: Unenhanced T1-weighted sagittal and axial, T2-weighted axial and coronal and FLAIR, gradient echo and diffusion-weighted axial images of the brain were obtained. Findings: Comparison is made to the patient's CT scan of the head dated 07/15/2016. Images from the study are degraded by patient motion. There is generalized parenchymal atrophy. Patchy and a few small scattered areas of increased signal intensity are seen within the periventricular and subcortical white matter of both cerebral hemispheres on the FLAIR and T2-weighted images consistent with areas of mild small vessel ischemic disease. No acute parenchymal abnormality is seen. No extra-axial fluid collection is seen. There is no MRI evidence of acute ischemia/infarction. Mild mucosal thickening is seen scattered throughout the paranasal sinuses. There are moderate sized bilateral mastoid effusions. Normal flow voids are seen within the major vascular structures surrounding the brain parenchyma. 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 Impression: No acute parenchymal abnormality is seen. Electronically signed by: Pablo Massey MD (01/25/2018 12:41 PM) [id number]
[2018-01-25] MEDS: cloNIDine TTS-3 1 PATCH PATCH.TDWK TD SCH (14:02)
[2018-01-25] MEDS: LABETALOL 20 MG/4 ML DISP.SYRIN. IVP PRN (14:05)
[2018-01-25] MEDS ORDERED: PROPOFOL 20 ML IV ONE (15:07)
[2018-01-25] MEDS ORDERED: LIDOCAINE 1% PF 2 ML VIAL. ONE (15:07)
[2018-01-25] MEDS ORDERED: IV NORMAL SALINE 1000ML BAG 1,000 ML IV SCH (15:15)
[2018-01-25] MEDS ORDERED: IV RINGERS,LACTATED 1000ML 1,000 ML IV SCH (15:15)
--- NOTE | 2018-01-25 15:17 | PDOC ---
PROGRESS NOTES Assessment Assessment Cluster headache. Hypertensive emergency, SBP 229 mmHg. Hypertensive encephalopathy. Vomiting. CAD. DM. HTN. HLD. PVD. Kidney transplant, bilateral. Renal failure. 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 No evidence of acute CVA this time. RECOMMENDATIONS/PLAN: BP control. Pain control. Neurontin 100 mg tid. Treat medical diseases. FU with PCP. HISTORY OF THE PRESENT ILLNESS: 52-y-old AA male patient with above medical diseases has history of migraine headache but not frequent maybe about 2 to 3 times a years lasting for about 1 week each with associated with nausea and vomiting. He was evaluated in [facility] recently for his headaches and he believed he had HCT and brain MRI there. He has headaches, nausea, vomiting this time since 01/20/18. No focalized sensory or motor deficits. Headaches are significantly improved and vomiting stopped since p.m of 01/24. PAST MEDICAL HISTORY Cardiovascular: CAD, HTN, Hyperlipidemia, Other (PAD) Pulmonary: No pertinent hx CENTRAL NERVOUS SYSTEM: Migraine GI: GERD Heme/Onc: Anemia NOS, Other (chronic immunosuppression) Psych: No pertinent hx Musculoskeletal: Osteoarthritis Infectious disease: No pertinent hx ENT: No pertinent hx Renal/: Chronic renal failure Endocrine: Diabetes (1) PAST SURGICAL HISTORY Renal transplant 2003 then failed then 2007; bilateral BKA due to DM and PA. FAMILY HISTORY Heart Disease ALLERGY: Reviewed. MEDICATIONS: Refer to [facility] SOCIAL HISTORY: Lives with family. Denies current smoking, drinking, and illicit drug use. REVIEW OF SYSTEMS: Constitutional: No malnutrition, weight loss, cachexia. Head: No traumatic brain or head injury. Skin: No edema, or rash. Ear: No infection. Eyes: Left eye blindness. Nose: No bleeding or purulent discharges. Hearing: No hearing decrease. Neck: No injury. Cardiac: CAD, HTN, HLD. Pulmonary: No COPD. GI: No GI ulcer, GI bleeding. Urinary/genital: Kidney transplant. Endocrinologic: Diabetes Mellitus. Skeletomuscular: BKA. Neurological: see HP. Psychiatric: Denies drug use/abuse. Otherwise, not [id number] review of systems. PHYSICAL EXAMINATION: General appearance is in no acute distress. HEENT: Normocephalic and nontraumatic. Nose, ears, and throat are unremarkable. Left eye prosthetic. Neck is supple. No lymphadenopathy. No crepitus. Cardiovascular: S1, S2, regular rate and rhythm. Pulmonary: Clear to auscultation bilaterally. Abdomen: Bowel sounds are positive. Extremities: No rash, lesions, or edema. No restriction of range of motion NEUROLOGICAL EXAMINATION: Alert Oriented to time, place and person. Right eye pupil 2 mm reactive to light stimulation. Left prosthetic eye. EOMI. CN: no focal findings. Muscle tone: within normal. Muscle strength: 5 DTR: 2 UE, 1 at knee. Plantar reflex: BKA. Gait: Able to walk. Sensory exam: no abnormal findings. No acute cerebellar signs elicited. F-T-N test accurate. Objective Objective Vital Signs Date Time Temp Pulse Resp B/P (MAP) Pulse Ox O2 Delivery O2 Flow Rate FiO2 01/25/18 15:07 99.3 114 188/78 (114) 98 99.3 01/25/18 14:48 20 01/25/18 14:46 Room Air Intake and Output 01/25/18 07:00 Intake Total 242 ml Output Total 1150 ml Balance -908 ml Intake Oral 200 ml IV Total 42 ml Output Urine Total 1150 ml Vitals Signs Vitals VS - Last 72 Hours, by Label Date Time Temp Pulse Resp B/P (MAP) Pulse Ox O2 Delivery O2 Flow Rate FiO2 01/25/18 15:07 99.3 114 188/78 (114) 98 99.3 01/25/18 14:48 97.9 102 20 98 97.9 01/25/18 14:46 Room Air 01/25/18 14:05 113 01/25/18 11:11 98.8 116 159/72 (101) 98 98.8 01/25/18 11:08 120 01/25/18 08:10 Room Air 01/25/18 06:44 112 153/72 (99) 01/25/18 05:30 108 167/77 (107) 01/25/18 05:07 122 189/87 01/25/18 04:34 122 189/87 (121) 01/25/18 03:58 99.0 119 20 170/80 (110) 96 Room Air 99.0 01/25/18 03:34 111 20 183/79 (113) Room Air 01/25/18 01:32 111 20 186/74 (111) Room Air 01/25/18 00:29 112 20 180/79 (112) Room Air 01/24/18 23:58 99.3 98 Room Air 99.3 01/24/18 23:40 110 177/83 01/24/18 23:35 110 20 177/83 (114) Room Air 01/24/18 22:29 120 20 142/69 (93) Room Air 01/24/18 20:29 120 20 170/67 (101) Room Air 01/24/18 20:19 119 174/82 01/24/18 20:18 18 98 Room Air 01/24/18 20:00 Room Air 01/24/18 19:48 20 98 Room Air 01/24/18 19:28 98.5 119 18 174/82 (112) 98 Room Air 98.5 01/24/18 18:45 130 01/24/18 18:29 128 20 187/81 (116) Room Air 01/24/18 17:29 120 20 183/82 (115) Room Air 01/24/18 16:35 124 20 192/72 (112) Room Air 01/24/18 15:00 98.9 123 20 171/86 (114) 98 Room Air 98.9 01/24/18 14:29 120 20 190/65 (106) Room Air 01/24/18 12:00 125 01/24/18 11:52 124 20 184/81 (115) Room Air 01/24/18 10:43 122 20 190/78 (115) Room Air 01/24/18 10:26 98.7 122 20 175/79 (111) 96 Room Air 98.7 01/24/18 10:13 122 20 175/79 (111) Room Air 01/24/18 09:13 120 20 153/57 (89) Room Air 01/24/18 08:13 114 20 168/74 (105) Room Air 01/24/18 08:00 Room Air 01/24/18 07:00 98.8 76 20 174/76 (108) 97 Room Air 98.8 Laboratory Laboratory Laboratory Tests Test 01/24/18 17:08 01/24/18 20:26 01/25/18 02:45 01/25/18 07:21 Glucose (Fingerstick) 269 mg/dL (70-99) 271 mg/dL (70-99) 296 mg/dL (70-99) 312 mg/dL (70-99) Test 01/25/18 10:35 01/25/18 10:54 01/25/18 14:05 White Blood Count 10.5 x10^3/uL (4.0-11.0) Red Blood Count 3.19 x10^6/uL (4.30-5.70) Hemoglobin 9.7 g/dL (13.0-17.5) Hematocrit 28.2 % (39.0-53.0) Mean Corpuscular Volume 89 fL (79-100) Mean Corpuscular Hemoglobin 31 pg (25-35) Mean Corpuscular Hemoglobin Concent 35 g/dL (31-37) Red Cell Distribution Width 13.1 % (11.5-14.5) Platelet Count 253 x10^3/uL (140-400) Erythrocyte Sedimentation Rate 75 (0-15) Sodium Level 137 mmol/L (136-145) Potassium Level 4.4 mmol/L (3.5-5.1) Chloride Level 102 mmol/L (98-107) Carbon Dioxide Level 21 mmol/L (21-32) Anion Gap 14 (6-14) Blood Urea Nitrogen 39 mg/dL (8-26) Creatinine 2.3 mg/dL (0.7-1.3) Estimated GFR (Cockcroft-Gault) 30.2 Glucose Level 356 mg/dL (70-99) Calcium Level 9.4 mg/dL (8.5-10.1) Phosphorus Level 3.9 mg/dL (2.6-4.7) Magnesium Level 2.2 mg/dL (1.8-2.4) Glucose (Fingerstick) 316 mg/dL (70-99) 317 mg/dL (70-99) Medication Medications Current Medications Carvedilol (Coreg) 25 mg BIDWMEALS PO ; Start 01/24/18 at 17:00 Clonidine HCl (Catapres Tts-3) 1 patch WEEKLY TD Last administered on at 14:02; Start 01/25/18 at 13:00 Fentanyl Citrate (Fentanyl 2ml Vial) 50 mcg PRN Q3HRS PRN IV SEVERE PAIN Last administered on 01/25/18at 09:34; Start 01/25/18 at 09:15 Gabapentin (Neurontin) 100 mg TID PO ; Start 01/24/18 at 16:00 Insulin Glargine (Lantus) 4 units QHS SQ ; Start 01/24/18 at 21:00; Status UNV Labetalol HCl (Normodyne Iv Push) 20 mg PRN Q4HRS PRN IVP HYPERTENSION, SEE COMMENTS Last administered on 01/25/18at 14:05; Start 01/25/18 at 13:00 Lidocaine HCl (Xylocaine-Mpf 1% 2ml Vial) 2 ml STK-MED ONCE .ROUTE ; Start at 15:07; Stop 01/25/18 at 15:08; Status DC Metoprolol Tartrate (Lopressor Vial) 7.5 mg Q6HRS IVP ; Start 01/25/18 at 18:00 ; Stop 01/25/18 at 18:00; Status DC Mycophenolate Mofetil 250 mg/ Dextrose 42 ml @ 21 mls/hr Q12H IV Last administered on 01/25/18at 11:53; Start 01/24/18 at 21:00 Non-Formulary Medication (Hydrochlorothiazide (Hydrochlorothiazide Capsule ) ) 10 mg BID PO ; Start 01/24/18 at 21:00; Stop 01/24/18 at 21:00; Status DC Propofol 20 ml @ As Directed STK-MED ONCE IV ; Start 01/25/18 at 15:07; Stop 01/25/18 at 15:08; Status DC Ringer's Solution 1,000 ml @ 30 mls/hr Q24H IV ; Start 01/25/18 at 15:15; Status Cancel Sodium Chloride 1,000 ml @ 0 mls/hr Q0M IV Last administered on 01/25/18at 15: 13; Start 01/25/18 at 15:15 Sodium Chloride 1,000 ml @ 75 mls/hr [id number] IV ; Start 01/25/18 at 07:30 Sodium Chloride 1,000 ml @ 75 mls/hr [id number] IV Last administered on at 09:35; Start 01/25/18 at 09:15 Sodium Chloride (Saline Mist Nasal) 1 bryan PRN Q1HR PRN NS NASAL CONGESTION; Start 01/24/18 at 17:30 Tacrolimus (Prograf) 0.5 mg QHS SL Last administered on 10/25/18at 20:20; Start 01/24/18 at 21:00 Tacrolimus (Prograf) 1 mg QHS SL Last administered on 01/24/18at 20:20; Start 01/24/18 at 21:00 Tacrolimus (Prograf) 2 mg DAILY SL Last administered on 01/25/18at 09:35; Start 01/25/18 at 09:00 Tacrolimus (Prograf) 3 mg QHS PO ; Start 01/24/18 at 21:00; Stop 01/24/18 at 21:00; Status DC Tacrolimus (Prograf) 4 mg DAILY PO ; Start 01/25/18 at 09:00; Stop 01/25/18 at 09:00; Status DC Comment Review of Relevant I have reviewed the following items nadiya (where applicable) has been applied. KELSEY DUNCAN MD Jan 25, 2018 15:17
--- NOTE | 2018-01-25 15:32 | PDOC4 ---
PROCEDURE Procedure EGD Indication: distended stomach on imaging, r/o GOO. Unable to pass NGT. Meds: per anesthesia Findings: E--Exudative/friable distally due to reflux/vomiting. G--moderate amount hematinish, watery fluid. Mostly suctioned out. No GOO and otherwise normal. D--Normal to second portion. Leslie. well. IMP: Severe esophagitis Gastroparesis suspect. No gastric outlet obstruction. REC: IV PPI. Scheduled metoclopramide IV. Monitor for response. NPO for now; advance if does well on above. VIRGINIA FERNANDEZ MD Jan 25, 2018 15:32
--- NOTE | 2018-01-25 16:47 | PDOC ---
MARLENE PHILLIPS [employer] 01/25/18 1647: CARDIO Progress Notes Date and Time Date of Service 01/25/2018 Time of Evaluation 1620 Subjective Subjective: No Chest Pain, No shortness of breath, No Palpitations, Other ( still has occasional nausea but better, MARTÍNEZ is better) Vitals Vitals Vital Signs Date Time Temp Pulse Resp B/P (MAP) Pulse Ox O2 Delivery O2 Flow Rate FiO2 01/25/18 15:58 108 20 172/74 95 Nasal Cannula 2 01/25/18 15:33 99.6 99.6 Weight Weight [ ] Input and Output Intake and Output Intake and Output 01/25/18 07:00 Intake Total 242 ml Output Total 1150 ml Balance -908 ml Intake Oral 200 ml IV Total 42 ml Output Urine Total 1150 ml Laboratory Labs Laboratory Tests Test 01/24/18 17:08 01/24/18 20:26 01/25/18 02:45 01/25/18 07:21 Glucose (Fingerstick) 269 mg/dL (70-99) 271 mg/dL (70-99) 296 mg/dL (70-99) 312 mg/dL (70-99) Test 01/25/18 10:35 01/25/18 10:54 01/25/18 14:05 White Blood Count 10.5 x10^3/uL (4.0-11.0) Red Blood Count 3.19 x10^6/uL (4.30-5.70) Hemoglobin 9.7 g/dL (13.0-17.5) Hematocrit 28.2 % (39.0-53.0) Mean Corpuscular Volume 89 fL (79-100) Mean Corpuscular Hemoglobin 31 pg (25-35) Mean Corpuscular Hemoglobin Concent 35 g/dL (31-37) Red Cell Distribution Width 13.1 % (11.5-14.5) Platelet Count 253 x10^3/uL (140-400) Erythrocyte Sedimentation Rate 75 (0-15) Sodium Level 137 mmol/L (136-145) Potassium Level 4.4 mmol/L (3.5-5.1) Chloride Level 102 mmol/L (98-107) Carbon Dioxide Level 21 mmol/L (21-32) Anion Gap 14 (6-14) Blood Urea Nitrogen 39 mg/dL (8-26) Creatinine 2.3 mg/dL (0.7-1.3) Estimated GFR (Cockcroft-Gault) 30.2 Glucose Level 356 mg/dL (70-99) Calcium Level 9.4 mg/dL (8.5-10.1) Phosphorus Level 3.9 mg/dL (2.6-4.7) Magnesium Level 2.2 mg/dL (1.8-2.4) Glucose (Fingerstick) 316 mg/dL (70-99) 317 mg/dL (70-99) Review of Systems Constitutional: yes: weakness, alert, oriented Ears/Nose/Throat: Yes: no symptom reported Eyes: Yes: no symptom reported Pulmonary: Yes no symptom reported Cardiovascular: Yes no symptom reported Gastrointestional: Yes: nausea, vomiting Genitourinary: Yes: no symptom reported Musculoskeletal: Yes: no symptom reported Skin: Yes no symptom reported Psychiatric/Neurological: Yes: no symptom reported Endocrine: Yes: no symptom reported Physical Exam HEENT: Neck Supple W Full Motion Chest: Symmetric LUNGS: Other (upper rhonchi) Heart: S1S2, RRR (SR) Abdomen: Soft N/T Extremities: Other (bilateral BKA) Neurology: alert, oriented, follow commands Assessment Assessment 1. Accelerated HTN: improving 2. Cluster MARTÍNEZ: per neurology 3. N/V: S/P EGD with esophagitis with possible gastroparesis. Per GI 4. JAMAL on CKD3 with past hx of x2 renal transplant. Nephrology managing 5. Chronic immunosuppression 6. CAD: past stents, clinically stable. EF and WM nml. 7. DM1/HLP: previous DKA. per PCP Recommendations 1. Clonidine transdermal, labetolol IV for now while n/v remains. Titrate cardene down per BP trend. Once PO is allowed then transition to home PO BP meds 2. Restart plavix and home statin once PO is allowed 3. Will follow along peripherally. Follow up in office in 4 weeks. AUGUSTIN GREEN MD 01/28/18 2471: CARDIO Progress Notes Plan Plan Late entry for 01/25/2018. Patient seen and examined. Will place a transdermal clonidine patch and continue IV labetalol until patient is able to take by mouth. Supportive care for now. Outpatient cardiac testing is necessary based on symptoms. Plan for continue renal evaluation at this time. MARLENE PHILLIPS APRN Jan 25, 2018 16:47 AUGUSTIN GREEN MD Jan 28, 2018 17:14
[2018-01-25] MEDS: METOCLOPRAMIDE HCL 10 MG/2 ML VIAL. IV SCH (17:36)
[2018-01-25] MEDS ORDERED: METOPROLOL TARTRATE 5 MG/5 ML VIAL. IVP SCH (18:00)
[2018-01-25] MEDS: TACROLIMUS 0.5 MG CAPSULE SL SCH (21:02)
[2018-01-26] VITALS (18 sets, daily range): BP systolic 138–199; BP diastolic 59–95
[2018-01-26] MEDS: PROCHLORPERAZINE 10 MG/2 ML VIAL. IV PRN ×2 (01:00→23:44)
[2018-01-26] MEDS: METOCLOPRAMIDE HCL 10 MG/2 ML VIAL. IV SCH ×5 (01:01→23:43)
[2018-01-26] MEDS: ACETAMINOPHEN 325 MG TABLET. PO PRN ×3 (04:16→23:57)
[2018-01-26] MEDS: INSULIN LISPRO 300 UNITS/3 ML INSULN.PEN. SQ SCH ×3 (08:00→17:00)
[2018-01-26] MEDS: CARVEDILOL 12.5 MG TABLET. PO SCH ×2 (08:00→16:44)
[2018-01-26 08:42] LABS: BASO % 0 % (0-3); EOS % 0 % (0-3); HEMATOCRIT 25.2 % (39.0-53.0); HEMOGLOBIN 8.9 g/dL (13.0-17.5); LYMPH # 1.2 x10^3/uL (1.0-4.8); LYMPH % 12 % (24-48); MEAN CORPUSCULAR HEMOGLOBIN 31 pg (25-35); MEAN CORPUSCULAR HGB CONC 35 g/dL (31-37); MEAN CORPUSCULAR VOLUME 89 fL (79-100); MONO % 19 % (0-9); NEUT # 7.3 x10^3uL (1.8-7.7); NEUT % 69 % (31-73); PLATELET COUNT 237 x10^3/uL (140-400); RED BLOOD COUNT 2.84 x10^6/uL (4.30-5.70); RED CELL DISTRIBUTION WIDTH 13.4 % (11.5-14.5); WHITE BLOOD COUNT 10.6 x10^3/uL (4.0-11.0)
[2018-01-26 08:53] LABS: BASE EXCESS ABG -6 mmol/L (-3-3); HCO3 ABG 19 mmol/L (21-28); PCO2 ABG 36 mmHg (35-46); PO2 ABG 57 mmHg (75-108); SAT O2 ABG 87 % (92-99)
[2018-01-26 08:53] LABS: CALCIUM 8.7 mg/dL (8.5-10.1); CREATININE 2.1 mg/dL (0.7-1.3); GFR 33.6; POTASSIUM 4.2 mmol/L (3.5-5.1)
[2018-01-26 08:54] LABS: FIO2 ABG 40
[2018-01-26] MEDS: cloNIDine HCL 0.2 MG TABLET PO SCH ×2 (09:00→21:00)
[2018-01-26] MEDS: CLOPIDOGREL BISULFATE 75 MG TABLET PO SCH (09:00)
[2018-01-26] MEDS: amLODIPine BESYLATE 5 MG TABLET PO SCH (09:00)
[2018-01-26] MEDS: GABAPENTIN 100 MG CAPSULE. PO SCH ×3 (09:00→21:00)
[2018-01-26] MEDS: IV NORMAL SALINE 1000ML BAG 1,000 ML IV SCH ×4 (09:05→23:56)
--- NOTE | 2018-01-26 09:09 | RAD ---
Examination: CHEST AP ONLY History: SOA Comparison/Correlation: None Findings: Portable upright frontal view chest was obtained. Right lung field is clear. Heart size is borderline. Left basilar moderate-sized pleural effusion and adjacent atelectasis/consolidation. No pneumothorax. Impression: Left basilar pleural effusion and consolidation/atelectasis. Follow-up to resolution is recommended. Electronically signed by: Myron Durbin MD (01/26/2018 9:06 AM) [facility]
--- NOTE | 2018-01-26 09:46 | PDOC ---
PULMONARY PROGRESS NOTES Vitals Vital Signs Date Time Temp Pulse Resp B/P (MAP) Pulse Ox O2 Delivery O2 Flow Rate FiO2 01/26/18 06:11 99.4 121 148/72 (97) 99.4 01/26/18 04:00 22 89 Room Air 01/25/18 23:16 2.0 Lungs: Clear Labs Laboratory Tests Test 01/24/18 11:55 01/24/18 12:45 01/24/18 17:08 01/24/18 20:26 Glucose (Fingerstick) 211 mg/dL (70-99) 269 mg/dL (70-99) 271 mg/dL (70-99) Tacrolimus (Prograf) Level See separate report Test 01/25/18 02:45 01/25/18 07:21 01/25/18 10:35 01/25/18 10:54 Glucose (Fingerstick) 296 mg/dL (70-99) 312 mg/dL (70-99) 316 mg/dL (70-99) White Blood Count 10.5 x10^3/uL (4.0-11.0) Red Blood Count 3.19 x10^6/uL (4.30-5.70) Hemoglobin 9.7 g/dL (13.0-17.5) Hematocrit 28.2 % (39.0-53.0) Mean Corpuscular Volume 89 fL (79-100) Mean Corpuscular Hemoglobin 31 pg (25-35) Mean Corpuscular Hemoglobin Concent 35 g/dL (31-37) Red Cell Distribution Width 13.1 % (11.5-14.5) Platelet Count 253 x10^3/uL (140-400) Erythrocyte Sedimentation Rate 75 (0-15) Sodium Level 137 mmol/L (136-145) Potassium Level 4.4 mmol/L (3.5-5.1) Chloride Level 102 mmol/L (98-107) Carbon Dioxide Level 21 mmol/L (21-32) Anion Gap 14 (6-14) Blood Urea Nitrogen 39 mg/dL (8-26) Creatinine 2.3 mg/dL (0.7-1.3) Estimated GFR (Cockcroft-Gault) 30.2 Glucose Level 356 mg/dL (70-99) Calcium Level 9.4 mg/dL (8.5-10.1) Phosphorus Level 3.9 mg/dL (2.6-4.7) Magnesium Level 2.2 mg/dL (1.8-2.4) Test 01/25/18 14:05 01/25/18 17:10 01/25/18 21:25 01/26/18 00:50 Glucose (Fingerstick) 317 mg/dL (70-99) 296 mg/dL (70-99) 186 mg/dL (70-99) 181 mg/dL (70-99) Test 01/26/18 04:03 01/26/18 08:00 01/26/18 08:20 01/26/18 08:35 Glucose (Fingerstick) 161 mg/dL (70-99) 182 mg/dL (70-99) White Blood Count 10.6 x10^3/uL (4.0-11.0) Red Blood Count 2.84 x10^6/uL (4.30-5.70) Hemoglobin 8.9 g/dL (13.0-17.5) Hematocrit 25.2 % (39.0-53.0) Mean Corpuscular Volume 89 fL (79-100) Mean Corpuscular Hemoglobin 31 pg (25-35) Mean Corpuscular Hemoglobin Concent 35 g/dL (31-37) Red Cell Distribution Width 13.4 % (11.5-14.5) Platelet Count 237 x10^3/uL (140-400) Neutrophils (%) (Auto) 69 % (31-73) Lymphocytes (%) (Auto) 12 % (24-48) Monocytes (%) (Auto) 19 % (0-9) Eosinophils (%) (Auto) 0 % (0-3) Basophils (%) (Auto) 0 % (0-3) Neutrophils # (Auto) 7.3 x10^3uL (1.8-7.7) Lymphocytes # (Auto) 1.2 x10^3/uL (1.0-4.8) Monocytes # (Auto) 2.0 x10^3/uL (0.0-1.1) Eosinophils # (Auto) 0.0 x10^3/uL (0.0-0.7) Basophils # (Auto) 0.0 x10^3/uL (0.0-0.2) Sodium Level 142 mmol/L (136-145) Potassium Level 4.2 mmol/L (3.5-5.1) Chloride Level 108 mmol/L (98-107) Carbon Dioxide Level 23 mmol/L (21-32) Anion Gap 11 (6-14) Blood Urea Nitrogen 29 mg/dL (8-26) Creatinine 2.1 mg/dL (0.7-1.3) Estimated GFR (Cockcroft-Gault) 33.6 Glucose Level 185 mg/dL (70-99) Calcium Level 8.7 mg/dL (8.5-10.1) O2 Saturation 87 % (92-99) Arterial Blood pH 7.34 (7.35-7.45) Arterial Blood pCO2 at Patient Temp 36 mmHg (35-46) Arterial Blood pO2 at Patient Temp 57 mmHg (75-108) Arterial Blood HCO3 19 mmol/L (21-28) Arterial Blood Base Excess -6 mmol/L (-3-3) FiO2 40 Test 01/26/18 09:12 Glucose (Fingerstick) 180 mg/dL (70-99) Laboratory Tests Test 01/25/18 10:35 01/25/18 10:54 01/25/18 14:05 01/25/18 17:10 White Blood Count 10.5 x10^3/uL (4.0-11.0) Red Blood Count 3.19 x10^6/uL (4.30-5.70) Hemoglobin 9.7 g/dL (13.0-17.5) Hematocrit 28.2 % (39.0-53.0) Mean Corpuscular Volume 89 fL (79-100) Mean Corpuscular Hemoglobin 31 pg (25-35) Mean Corpuscular Hemoglobin Concent 35 g/dL (31-37) Red Cell Distribution Width 13.1 % (11.5-14.5) Platelet Count 253 x10^3/uL (140-400) Erythrocyte Sedimentation Rate 75 (0-15) Sodium Level 137 mmol/L (136-145) Potassium Level 4.4 mmol/L (3.5-5.1) Chloride Level 102 mmol/L (98-107) Carbon Dioxide Level 21 mmol/L (21-32) Anion Gap 14 (6-14) Blood Urea Nitrogen 39 mg/dL (8-26) Creatinine 2.3 mg/dL (0.7-1.3) Estimated GFR (Cockcroft-Gault) 30.2 Glucose Level 356 mg/dL (70-99) Calcium Level 9.4 mg/dL (8.5-10.1) Phosphorus Level 3.9 mg/dL (2.6-4.7) Magnesium Level 2.2 mg/dL (1.8-2.4) Glucose (Fingerstick) 316 mg/dL (70-99) 317 mg/dL (70-99) 296 mg/dL (70-99) Test 01/25/18 21:25 01/26/18 00:50 01/26/18 04:03 01/26/18 08:00 Glucose (Fingerstick) 186 mg/dL (70-99) 181 mg/dL (70-99) 161 mg/dL (70-99) White Blood Count 10.6 x10^3/uL (4.0-11.0) Red Blood Count 2.84 x10^6/uL (4.30-5.70) Hemoglobin 8.9 g/dL (13.0-17.5) Hematocrit 25.2 % (39.0-53.0) Mean Corpuscular Volume 89 fL (79-100) Mean Corpuscular Hemoglobin 31 pg (25-35) Mean Corpuscular Hemoglobin Concent 35 g/dL (31-37) Red Cell Distribution Width 13.4 % (11.5-14.5) Platelet Count 237 x10^3/uL (140-400) Neutrophils (%) (Auto) 69 % (31-73) Lymphocytes (%) (Auto) 12 % (24-48) Monocytes (%) (Auto) 19 % (0-9) Eosinophils (%) (Auto) 0 % (0-3) Basophils (%) (Auto) 0 % (0-3) Neutrophils # (Auto) 7.3 x10^3uL (1.8-7.7) Lymphocytes # (Auto) 1.2 x10^3/uL (1.0-4.8) Monocytes # (Auto) 2.0 x10^3/uL (0.0-1.1) Eosinophils # (Auto) 0.0 x10^3/uL (0.0-0.7) Basophils # (Auto) 0.0 x10^3/uL (0.0-0.2) Sodium Level 142 mmol/L (136-145) Potassium Level 4.2 mmol/L (3.5-5.1) Chloride Level 108 mmol/L (98-107) Carbon Dioxide Level 23 mmol/L (21-32) Anion Gap 11 (6-14) Blood Urea Nitrogen 29 mg/dL (8-26) Creatinine 2.1 mg/dL (0.7-1.3) Estimated GFR (Cockcroft-Gault) 33.6 Glucose Level 185 mg/dL (70-99) Calcium Level 8.7 mg/dL (8.5-10.1) Test 01/26/18 08:20 01/26/18 08:35 01/26/18 09:12 Glucose (Fingerstick) 182 mg/dL (70-99) 180 mg/dL (70-99) O2 Saturation 87 % (92-99) Arterial Blood pH 7.34 (7.35-7.45) Arterial Blood pCO2 at Patient Temp 36 mmHg (35-46) Arterial Blood pO2 at Patient Temp 57 mmHg (75-108) Arterial Blood HCO3 19 mmol/L (21-28) Arterial Blood Base Excess -6 mmol/L (-3-3) FiO2 40 Medications Active Scripts Medications Dose Route/Sig Max Daily Dose Days Date Category Prograf (Tacrolimus) 1 Mg Capsule 3 Cap PO QHS 01/24/18 Reported Prograf (Tacrolimus) 1 Mg Capsule 4 Cap PO DAILY 01/24/18 Reported Lantus Solostar (Insulin Glargine,Hum.rec.anlog) 100 Unit/1 Ml Insuln.pen 4 Unit SQ [id number] 01/24/18 Reported Lantus Solostar (Insulin Glargine,Hum.rec.anlog) 100 Unit/1 Ml Insuln.pen 4 Unit SQ QHS 01/24/18 Reported Amlodipine Besylate 5 Mg Tablet 5 Mg PO DAILY 01/24/18 Reported Clonidine Hcl 0.2 Mg Tablet 1 Tab PO BID 01/24/18 Reported Oxycodone-Acetaminophen 5-325 (Oxycodone Hcl/Acetaminophen) 1 Each Tablet 1 Tab PO PRN Q4HRS PRN 07/15/16 Rx Clopidogrel (Clopidogrel Bisulfate) 75 Mg Tablet 1 Tab PO DAILY 07/15/16 Reported Cellcept (Mycophenolate Mofetil) 250 Mg Capsule 1 Cap PO BID 07/15/16 Reported Pantoprazole Sodium 20 Mg Tablet.dr 20 Mg PO DAILY 07/15/16 Reported Hydrochlorothiazide Capsule (Hydrochlorothiazide) 12.5 Mg Capsule 10 Mg PO BID 07/15/16 Reported Carvedilol 25 Mg Tablet 2 Tab PO [id number] 07/15/16 Reported Impression . ACUTE RESP FAILURE PNEUMONIA ACUTE CHF THANKS SOPHIA MCGOWAN MD Jan 26, 2018 09:46
[2018-01-26] MEDS: TACROLIMUS 1 MG CAPSULE SL SCH ×2 (09:52→21:33)
[2018-01-26] MEDS: PANTOPRAZOLE IV PUSH 40 MG VIAL. IVP SCH ×2 (09:52→16:45)
[2018-01-26] MEDS: INSULIN GLARGINE 300 UNITS/3 ML INSULN.PEN. SQ SCH ×2 (09:54→21:34)
[2018-01-26] MEDS ORDERED: PIP/TAZO PER PHARMACY MC PRN (10:00)
[2018-01-26] MEDS: FUROSEMIDE 40 MG/4 ML VIAL. IVP SCH (10:21)
[2018-01-26] MEDS: DEXTROSE 5% IV SCH ×2 (10:38→21:33)
[2018-01-26] MEDS: PIPERACILLIN/TAZOBACTAM 3.375 GM in IV NORMAL SALINE 50ML 50 ML IV SCH ×3 (10:38→23:21)
[2018-01-26] MEDS: MYCOPHENOLATE MOFETIL IV SCH ×2 (10:38→21:33)
[2018-01-26] MEDS: LEVALBUTEROL 1.25 MG/0.5 ML NEBU. NEB PRN ×2 (10:39→18:45)
--- NOTE | 2018-01-26 10:52 | PDOC ---
SUBJECTIVE ROS Resp distress this am, Now on venti mask. seen by Pulm Recd IV Lasix x 1 OBJECTIVE Vital Signs Vital Signs Date Time Temp Pulse Resp B/P (MAP) Pulse Ox O2 Delivery O2 Flow Rate FiO2 01/26/18 07:53 Venturi Mask 15.0 01/26/18 06:11 99.4 121 148/72 (97) 99.4 01/26/18 04:00 22 89 I & 0 Intake and Output 01/26/18 07:00 Intake Total 1770 ml Output Total 450 ml Balance 1320 ml Intake Oral 1300 ml IV Total 470 ml Output Urine Total 450 ml PHYSICAL EXAM Physical Exam Gen-Mild distress HEENT: OM moist, On vent Mask Neck No JVD LUNGS: upper rhonchi) Heart: S1S2, RRR Abdomen: Soft N/T, No graft tenderness Extremities: (bilateral BKA Neurology: alert, oriented, follow commands - No [place] DIAGNOSIS/ASSESSMENT Assessment & Plan JAMAL with creat at 2.3- Etiology Dehydration sec to N/V Today 2.1, good UOP E-Lytes stable, Monitor Hx of Renal Tx 2007 - Continue Immunosuppression Prograf level pending CKD STAGE 3 - Baseline Creat 1.5 Used to go to [facility] hasnt seen Renal as OP for many years as no insurance He was scheduled to see Dr. Nguyen at [facility] in past but was Hospitalized Nausea/Vomiting- improved S/P EGD with esophagitis with possible gastroparesis. Per GI Ac Resp failure - this am Pulm on board- Recd IV Lasix, On venti mask CxR not reported as Congestion but ?Pneumonia+ DM II HTN- Better Cardiology managing Anemia- ?Hgb dropping Admission Hgb may be high due to hemoconc Defer to primary Discussed with Pt and RN at bedside Ct scan abdomen 01/24 without Contrast 1. Severely atrophic and scarred bilateral kidneys. 2. Atrophic and scarred renal transplant in the right iliac fossa. 3. Mild perinephric edema related to a left iliac fossa renal transplant. 4. Borderline prostatic enlargement with distention of the urinary bladder. 5. Gastric distention with fluid. 6. Left basilar pulmonary infiltrates suggesting pneumonia. COMMENT/RELEVANT DATA Meds Current Medications Medications (Trade) Dose Ordered Sig/Penelope Start Time Stop Time Status Last Admin Dose Admin Acetaminophen (Tylenol) 650 mg PRN Q6HRS PRN 01/24/18 03:15 01/26/18 04:16 650 MG Amlodipine Besylate (Norvasc) 5 mg DAILY 01/24/18 11:30 Carvedilol (Coreg) 25 mg BIDWMEALS 01/24/18 17:00 Clonidine HCl (Catapres Tts-3) 1 patch WEEKLY 01/25/18 13:00 01/25/18 14:02 1 PATCH Clonidine HCl (Catapres) 0.2 mg BID 01/24/18 11:30 01/25/18 21:01 0.2 MG Clopidogrel Bisulfate (Plavix) 75 mg DAILY 01/24/18 11:30 01/24/18 14:12 75 MG Dextrose (Dextrose 50%-Water Syringe) 12.5 gm PRN Q15MIN PRN 01/23/18 23:00 Diphenhydramine HCl (Benadryl) 25 mg 1X ONCE 01/23/18 19:15 01/23/18 19:17 DC 01/23/18 19:25 25 MG Fentanyl Citrate (Fentanyl 2ml Vial) 50 mcg PRN Q3HRS PRN 01/25/18 09:15 01/25/18 22:46 50 MCG Furosemide (Lasix) 40 mg DAILY 01/26/18 10:30 01/26/18 10:21 40 MG Gabapentin (Neurontin) 100 mg TID 01/24/18 16:00 Insulin Glargine (Lantus) 4 units BID 01/24/18 11:30 01/26/18 09:54 4 UNITS Insulin Human Lispro (HumaLOG) 10 units 1X ONCE 01/24/18 05:00 01/24/18 05:02 DC 01/24/18 05:09 10 UNITS Insulin Human Regular (HumuLIN R VIAL) 5 unit 1X ONCE 01/23/18 19:45 01/23/18 19:46 DC 01/23/18 19:55 5 UNIT Labetalol HCl (Normodyne Iv Push) 20 mg PRN Q4HRS PRN 01/25/18 13:00 01/25/18 14:05 20 MG Levalbuterol HCl (Xopenex) 1.25 mg PRN Q6HRS PRN 01/26/18 08:45 01/26/18 10:39 1.25 MG Levofloxacin/ Dextrose 100 ml @ 100 mls/hr Q24H 01/26/18 08:30 01/26/18 09:32 DC Lidocaine HCl (Xylocaine-Mpf 1% 2ml Vial) 2 ml STK-MED ONCE 01/25/18 15:07 01/25/18 15:08 DC Magnesium Sulfate/ Dextrose 100 ml @ 100 mls/hr 1X ONCE 01/24/18 09:15 01/24/18 10:14 DC 01/24/18 12:01 100 MLS/HR Metoclopramide HCl (Reglan Vial) 5 mg Q6HRS 01/25/18 18:00 01/26/18 05:59 5 MG Metoprolol Tartrate (Lopressor Vial) 7.5 mg Q6HRS 01/25/18 18:00 01/25/18 18:00 DC Morphine Sulfate (Morphine Sulfate) 2 mg PRN Q2HR PRN 01/24/18 11:00 Mycophenolate Mofetil (Cellcept) 250 mg BID 01/24/18 12:00 01/24/18 15:58 DC 01/24/18 12:01 250 MG Mycophenolate Mofetil 250 mg/ Dextrose 42 ml @ 21 mls/hr Q12H 01/24/18 21:00 01/26/18 10:38 21 MLS/HR Nicardipine HCl 50 mg/Sodium Chloride 270 ml @ 32.4 mls/hr CONT PRN 01/24/18 03:00 01/26/18 10:21 25 MLS/HR Non-Formulary Medication (Hydrochlorothiazide (Hydrochlorothiazide Capsule )) 10 mg BID 01/24/18 21:00 01/24/18 21:00 DC Ondansetron HCl (Zofran) 4 mg PRN Q6HRS PRN 01/24/18 03:15 01/25/18 22:46 4 MG Oxycodone/ Acetaminophen (Percocet 5/325) 1 tab PRN Q4HRS PRN 01/24/18 01:00 Pantoprazole Sodium (PROTONIX VIAL for IV PUSH) 40 mg BIDAC 01/25/18 16:30 01/26/18 09:52 40 MG Pantoprazole Sodium (Protonix) 40 mg DAILYAC 01/24/18 11:30 01/24/18 12:01 DC Piperacillin Sod/ Tazobactam Sod (Zosyn Per Pharmacy) 1 each PRN DAILY PRN 01/26/18 10:00 Piperacillin Sod/ Tazobactam Sod 3.375 gm/Sodium Chloride 50 ml @ 100 mls/hr Q6HRS 01/26/18 11:00 01/26/18 10:38 100 MLS/HR Prochlorperazine Edisylate (Compazine) 10 mg PRN Q6HRS PRN 01/24/18 03:15 01/26/18 01:00 10 MG Propofol 20 ml @ As Directed STK-MED ONCE 01/25/18 15:07 01/25/18 15:08 DC Ringer's Solution 1,000 ml @ 30 mls/hr Q24H 01/25/18 15:15 Cancel Sodium Chloride 1,000 ml @ 0 mls/hr Q0M 01/25/18 15:15 01/25/18 15:43 DC 01/25/18 15:13 50 MLS/HR Sodium Chloride (Saline Mist Nasal) 1 bryan PRN Q1HR PRN 01/24/18 17:30 Tacrolimus (Prograf) 0.5 mg QHS 01/24/18 21:00 01/25/18 21:02 0.5 MG Trimethobenzamide HCl (Tigan Im) 200 mg PRN Q6HRS PRN 01/24/18 11:00 Lab Laboratory Tests Test 01/25/18 10:54 01/25/18 14:05 01/25/18 17:10 01/25/18 21:25 Glucose (Fingerstick) 316 mg/dL (70-99) 317 mg/dL (70-99) 296 mg/dL (70-99) 186 mg/dL (70-99) Test 01/26/18 00:50 01/26/18 04:03 01/26/18 08:00 01/26/18 08:20 Glucose (Fingerstick) 181 mg/dL (70-99) 161 mg/dL (70-99) 182 mg/dL (70-99) White Blood Count 10.6 x10^3/uL (4.0-11.0) Red Blood Count 2.84 x10^6/uL (4.30-5.70) Hemoglobin 8.9 g/dL (13.0-17.5) Hematocrit 25.2 % (39.0-53.0) Mean Corpuscular Volume 89 fL (79-100) Mean Corpuscular Hemoglobin 31 pg (25-35) Mean Corpuscular Hemoglobin Concent 35 g/dL (31-37) Red Cell Distribution Width 13.4 % (11.5-14.5) Platelet Count 237 x10^3/uL (140-400) Neutrophils (%) (Auto) 69 % (31-73) Lymphocytes (%) (Auto) 12 % (24-48) Monocytes (%) (Auto) 19 % (0-9) Eosinophils (%) (Auto) 0 % (0-3) Basophils (%) (Auto) 0 % (0-3) Neutrophils # (Auto) 7.3 x10^3uL (1.8-7.7) Lymphocytes # (Auto) 1.2 x10^3/uL (1.0-4.8) Monocytes # (Auto) 2.0 x10^3/uL (0.0-1.1) Eosinophils # (Auto) 0.0 x10^3/uL (0.0-0.7) Basophils # (Auto) 0.0 x10^3/uL (0.0-0.2) Sodium Level 142 mmol/L (136-145) Potassium Level 4.2 mmol/L (3.5-5.1) Chloride Level 108 mmol/L (98-107) Carbon Dioxide Level 23 mmol/L (21-32) Anion Gap 11 (6-14) Blood Urea Nitrogen 29 mg/dL (8-26) Creatinine 2.1 mg/dL (0.7-1.3) Estimated GFR (Cockcroft-Gault) 33.6 Glucose Level 185 mg/dL (70-99) Calcium Level 8.7 mg/dL (8.5-10.1) Test 01/26/18 08:35 01/26/18 09:12 O2 Saturation 87 % (92-99) Arterial Blood pH 7.34 (7.35-7.45) Arterial Blood pCO2 at Patient Temp 36 mmHg (35-46) Arterial Blood pO2 at Patient Temp 57 mmHg (75-108) Arterial Blood HCO3 19 mmol/L (21-28) Arterial Blood Base Excess -6 mmol/L (-3-3) FiO2 40 Glucose (Fingerstick) 180 mg/dL (70-99) Results All relevant outside records, renal labs, imaging studies, telemetry/EKG's were reviewed. Left basilar pleural effusion and consolidation/atelectasis. Follow-up to resolution is recommended. BASSEM BUSBY MD Jan 26, 2018 10:51
--- NOTE | 2018-01-26 13:14 | PDOC ---
PROGRESS NOTES Chief Complaint Chief Complaint Uncontrolled HTN JAMAL due to dehydration Cluster headache H/o renal transplant: 2007 H/o DM1/HLP: per PCP H/o CAD History of Present Illness History of Present Illness Pt seen and examined. Pt sitting upright in bed on venti-mask at 50% at 15L. 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 Vitals Vitals Vital Signs Date Time Temp Pulse Resp B/P (MAP) Pulse Ox O2 Delivery O2 Flow Rate FiO2 01/26/18 11:00 98.8 132 18 168/68 (101) 92 Room Air 98.8 01/26/18 10:40 15.0 Physical Exam General: Alert, Oriented X3, Cooperative, moderate distress Heart: Regular rate, Normal S1, Normal S2 Lungs: Other (upper rhonchi, right greather than left) Abdomen: Normal bowel sounds, Soft Extremities: No clubbing, No cyanosis, Other (bilateral BKAs) Skin: No rashes, No breakdown, No significant lesion Labs LABS Laboratory Tests Test 01/25/18 14:05 01/25/18 17:10 01/25/18 21:25 01/26/18 00:50 Glucose (Fingerstick) 317 mg/dL (70-99) 296 mg/dL (70-99) 186 mg/dL (70-99) 181 mg/dL (70-99) Test 01/26/18 04:03 01/26/18 08:00 01/26/18 08:20 01/26/18 08:35 Glucose (Fingerstick) 161 mg/dL (70-99) 182 mg/dL (70-99) White Blood Count 10.6 x10^3/uL (4.0-11.0) Red Blood Count 2.84 x10^6/uL (4.30-5.70) Hemoglobin 8.9 g/dL (13.0-17.5) Hematocrit 25.2 % (39.0-53.0) Mean Corpuscular Volume 89 fL (79-100) Mean Corpuscular Hemoglobin 31 pg (25-35) Mean Corpuscular Hemoglobin Concent 35 g/dL (31-37) Red Cell Distribution Width 13.4 % (11.5-14.5) Platelet Count 237 x10^3/uL (140-400) Neutrophils (%) (Auto) 69 % (31-73) Lymphocytes (%) (Auto) 12 % (24-48) Monocytes (%) (Auto) 19 % (0-9) Eosinophils (%) (Auto) 0 % (0-3) Basophils (%) (Auto) 0 % (0-3) Neutrophils # (Auto) 7.3 x10^3uL (1.8-7.7) Lymphocytes # (Auto) 1.2 x10^3/uL (1.0-4.8) Monocytes # (Auto) 2.0 x10^3/uL (0.0-1.1) Eosinophils # (Auto) 0.0 x10^3/uL (0.0-0.7) Basophils # (Auto) 0.0 x10^3/uL (0.0-0.2) Sodium Level 142 mmol/L (136-145) Potassium Level 4.2 mmol/L (3.5-5.1) Chloride Level 108 mmol/L (98-107) Carbon Dioxide Level 23 mmol/L (21-32) Anion Gap 11 (6-14) Blood Urea Nitrogen 29 mg/dL (8-26) Creatinine 2.1 mg/dL (0.7-1.3) Estimated GFR (Cockcroft-Gault) 33.6 Glucose Level 185 mg/dL (70-99) Calcium Level 8.7 mg/dL (8.5-10.1) O2 Saturation 87 % (92-99) Arterial Blood pH 7.34 (7.35-7.45) Arterial Blood pCO2 at Patient Temp 36 mmHg (35-46) Arterial Blood pO2 at Patient Temp 57 mmHg (75-108) Arterial Blood HCO3 19 mmol/L (21-28) Arterial Blood Base Excess -6 mmol/L (-3-3) FiO2 40 Test 01/26/18 09:12 01/26/18 12:13 Glucose (Fingerstick) 180 mg/dL (70-99) 224 mg/dL (70-99) Review of Systems Review of Systems Pt c/o fevers, MARTÍNEZ that is unchanged from yesterday, SOA improved with the venti- mask, and bilateral hand swelling improved with lasix. He denies any CP, abd pain, N/V/D. Assessment and Plan Assessmemt and Plan Problems Medical Problems: (1) Hypertensive urgency Status: Acute (2) Intractable nausea and vomiting Status: Acute (3) Migraine headache Status: Acute Assessment: Uncontrolled HTN JAMAL due to dehydration Cluster headache H/o renal transplant: 2007 H/o DM1/HLP: per PCP H/o CAD Plan: Cardiac monitoring Monitor labs Home meds IV abx PT/OT Venti-mask Consult ID Appreciate subspecialist input Advance diet as tolerated DVT ppx Comment Review of Relevant I have reviewed the following items nadiya (where applicable) has been applied. Labs Laboratory Tests Test 01/24/18 17:08 01/24/18 20:26 01/25/18 02:45 01/25/18 07:21 Glucose (Fingerstick) 269 mg/dL (70-99) 271 mg/dL (70-99) 296 mg/dL (70-99) 312 mg/dL (70-99) Test 01/25/18 10:35 01/25/18 10:54 01/25/18 14:05 01/25/18 17:10 White Blood Count 10.5 x10^3/uL (4.0-11.0) Red Blood Count 3.19 x10^6/uL (4.30-5.70) Hemoglobin 9.7 g/dL (13.0-17.5) Hematocrit 28.2 % (39.0-53.0) Mean Corpuscular Volume 89 fL (79-100) Mean Corpuscular Hemoglobin 31 pg (25-35) Mean Corpuscular Hemoglobin Concent 35 g/dL (31-37) Red Cell Distribution Width 13.1 % (11.5-14.5) Platelet Count 253 x10^3/uL (140-400) Erythrocyte Sedimentation Rate 75 (0-15) Sodium Level 137 mmol/L (136-145) Potassium Level 4.4 mmol/L (3.5-5.1) Chloride Level 102 mmol/L (98-107) Carbon Dioxide Level 21 mmol/L (21-32) Anion Gap 14 (6-14) Blood Urea Nitrogen 39 mg/dL (8-26) Creatinine 2.3 mg/dL (0.7-1.3) Estimated GFR (Cockcroft-Gault) 30.2 Glucose Level 356 mg/dL (70-99) Calcium Level 9.4 mg/dL (8.5-10.1) Phosphorus Level 3.9 mg/dL (2.6-4.7) Magnesium Level 2.2 mg/dL (1.8-2.4) Glucose (Fingerstick) 316 mg/dL (70-99) 317 mg/dL (70-99) 296 mg/dL (70-99) Test 01/25/18 21:25 01/26/18 00:50 01/26/18 04:03 01/26/18 08:00 Glucose (Fingerstick) 186 mg/dL (70-99) 181 mg/dL (70-99) 161 mg/dL (70-99) White Blood Count 10.6 x10^3/uL (4.0-11.0) Red Blood Count 2.84 x10^6/uL (4.30-5.70) Hemoglobin 8.9 g/dL (13.0-17.5) Hematocrit 25.2 % (39.0-53.0) Mean Corpuscular Volume 89 fL (79-100) Mean Corpuscular Hemoglobin 31 pg (25-35) Mean Corpuscular Hemoglobin Concent 35 g/dL (31-37) Red Cell Distribution Width 13.4 % (11.5-14.5) Platelet Count 237 x10^3/uL (140-400) Neutrophils (%) (Auto) 69 % (31-73) Lymphocytes (%) (Auto) 12 % (24-48) Monocytes (%) (Auto) 19 % (0-9) Eosinophils (%) (Auto) 0 % (0-3) Basophils (%) (Auto) 0 % (0-3) Neutrophils # (Auto) 7.3 x10^3uL (1.8-7.7) Lymphocytes # (Auto) 1.2 x10^3/uL (1.0-4.8) Monocytes # (Auto) 2.0 x10^3/uL (0.0-1.1) Eosinophils # (Auto) 0.0 x10^3/uL (0.0-0.7) Basophils # (Auto) 0.0 x10^3/uL (0.0-0.2) Sodium Level 142 mmol/L (136-145) Potassium Level 4.2 mmol/L (3.5-5.1) Chloride Level 108 mmol/L (98-107) Carbon Dioxide Level 23 mmol/L (21-32) Anion Gap 11 (6-14) Blood Urea Nitrogen 29 mg/dL (8-26) Creatinine 2.1 mg/dL (0.7-1.3) Estimated GFR (Cockcroft-Gault) 33.6 Glucose Level 185 mg/dL (70-99) Calcium Level 8.7 mg/dL (8.5-10.1) Test 01/26/18 08:20 01/26/18 08:35 01/26/18 09:12 01/26/18 12:13 Glucose (Fingerstick) 182 mg/dL (70-99) 180 mg/dL (70-99) 224 mg/dL (70-99) O2 Saturation 87 % (92-99) Arterial Blood pH 7.34 (7.35-7.45) Arterial Blood pCO2 at Patient Temp 36 mmHg (35-46) Arterial Blood pO2 at Patient Temp 57 mmHg (75-108) Arterial Blood HCO3 19 mmol/L (21-28) Arterial Blood Base Excess -6 mmol/L (-3-3) FiO2 40 Laboratory Tests Test 01/25/18 14:05 01/25/18 17:10 01/25/18 21:25 01/26/18 00:50 Glucose (Fingerstick) 317 mg/dL (70-99) 296 mg/dL (70-99) 186 mg/dL (70-99) 181 mg/dL (70-99) Test 01/26/18 04:03 01/26/18 08:00 01/26/18 08:20 01/26/18 08:35 Glucose (Fingerstick) 161 mg/dL (70-99) 182 mg/dL (70-99) White Blood Count 10.6 x10^3/uL (4.0-11.0) Red Blood Count 2.84 x10^6/uL (4.30-5.70) Hemoglobin 8.9 g/dL (13.0-17.5) Hematocrit 25.2 % (39.0-53.0) Mean Corpuscular Volume 89 fL (79-100) Mean Corpuscular Hemoglobin 31 pg (25-35) Mean Corpuscular Hemoglobin Concent 35 g/dL (31-37) Red Cell Distribution Width 13.4 % (11.5-14.5) Platelet Count 237 x10^3/uL (140-400) Neutrophils (%) (Auto) 69 % (31-73) Lymphocytes (%) (Auto) 12 % (24-48) Monocytes (%) (Auto) 19 % (0-9) Eosinophils (%) (Auto) 0 % (0-3) Basophils (%) (Auto) 0 % (0-3) Neutrophils # (Auto) 7.3 x10^3uL (1.8-7.7) Lymphocytes # (Auto) 1.2 x10^3/uL (1.0-4.8) Monocytes # (Auto) 2.0 x10^3/uL (0.0-1.1) Eosinophils # (Auto) 0.0 x10^3/uL (0.0-0.7) Basophils # (Auto) 0.0 x10^3/uL (0.0-0.2) Sodium Level 142 mmol/L (136-145) Potassium Level 4.2 mmol/L (3.5-5.1) Chloride Level 108 mmol/L (98-107) Carbon Dioxide Level 23 mmol/L (21-32) Anion Gap 11 (6-14) Blood Urea Nitrogen 29 mg/dL (8-26) Creatinine 2.1 mg/dL (0.7-1.3) Estimated GFR (Cockcroft-Gault) 33.6 Glucose Level 185 mg/dL (70-99) Calcium Level 8.7 mg/dL (8.5-10.1) O2 Saturation 87 % (92-99) Arterial Blood pH 7.34 (7.35-7.45) Arterial Blood pCO2 at Patient Temp 36 mmHg (35-46) Arterial Blood pO2 at Patient Temp 57 mmHg (75-108) Arterial Blood HCO3 19 mmol/L (21-28) Arterial Blood Base Excess -6 mmol/L (-3-3) FiO2 40 Test 01/26/18 09:12 01/26/18 12:13 Glucose (Fingerstick) 180 mg/dL (70-99) 224 mg/dL (70-99) Medications Current Medications Sodium Chloride 1,000 ml @ 1,000 mls/hr Q1H IV Last administered on at 17:54; Start 01/23/18 at 17:21; Stop 01/23/18 at 18:20; Status DC Prochlorperazine Edisylate (Compazine) 10 mg 1X ONCE IV Last administered on 01/23/18at 17:55; Start 01/23/18 at 17:30; Stop 01/23/18 at 17:31; Status DC Diphenhydramine HCl (Benadryl) 25 mg 1X ONCE IVP Last administered on at 17:57; Start 01/23/18 at 17:30; Stop 01/23/18 at 17:31; Status DC Metoclopramide HCl (Reglan Vial) 10 mg 1X ONCE IV Last administered on at 19:24; Start 01/23/18 at 19:15; Stop 01/23/18 at 19:17; Status DC Diphenhydramine HCl (Benadryl) 25 mg 1X ONCE IVP Last administered on at 19:25; Start 01/23/18 at 19:15; Stop 01/23/18 at 19:17; Status DC Metoprolol Tartrate (Lopressor Vial) 5 mg 1X ONCE IVP Last administered on at 19:55; Start 01/23/18 at 19:45; Stop 01/23/18 at 19:46; Status DC Insulin Human Regular (HumuLIN R VIAL) 5 unit 1X ONCE IV Last administered on 01/23/18at 19:55; Start 01/23/18 at 19:45; Stop 01/23/18 at 19:46; Status DC Labetalol HCl (Normodyne Iv Push) 10 mg 1X ONCE IVP ; Start 01/23/18 at 20:30 ; Stop 01/23/18 at 20:31; Status DC Labetalol HCl (Normodyne Iv Push) 10 mg 1X ONCE IVP Last administered on 01/23at 22:29; Start 01/23/18 at 22:00; Stop 01/23/18 at 22:04; Status DC Ondansetron HCl (Zofran) 4 mg PRN Q8HRS PRN IV NAUSEA/VOMITING Last administered on 01/24/18at 00:16; Start 01/23/18 at 22:45; Stop 01/24/18 at 03 :05; Status DC Fentanyl Citrate (Fentanyl 2ml Vial) 50 mcg PRN Q2HR PRN IV PAIN Last administered on 01/24/18at 19:48; Start 01/23/18 at 22:45; Stop 01/24/18 at 22 :44; Status DC Sodium Chloride 1,000 ml @ 100 mls/hr Q10H IV Last administered on 01/24/18at 19:56; Start 01/23/18 at 22:37; Stop 01/24/18 at 22:36; Status DC Labetalol HCl (Normodyne Iv Push) 10 mg PRN Q30MIN PRN IVP SBP>180 Last administered on 01/24/18at 00:07; Start 01/23/18 at 22:45; Stop 01/24/18 at 00 :49; Status DC Insulin Human Lispro (HumaLOG) 0-5 UNITS TIDWMEALS SQ Last administered on at 17:45; Start 01/24/18 at 08:00 Dextrose (Dextrose 50%-Water Syringe) 12.5 gm PRN Q15MIN PRN IV SEE COMMENTS; Start 01/23/18 at 23:00 Labetalol HCl (Normodyne Iv Push) 20 mg PRN Q2HR PRN IVP HYPERTENSION, SEE COMMENTS Last administered on 01/24/18at 02:12; Start 01/24/18 at 00:45; Stop 01/25/18 at 14:21; Status DC Carvedilol (Coreg) 6.25 mg 1X ONCE PO ; Start 01/24/18 at 00:45; Stop at 00:49; Status DC Amlodipine Besylate (Norvasc) 5 mg 1X ONCE PO Last administered on 01/24/18at 01:00; Start 01/24/18 at 00:45; Stop 01/24/18 at 00:49; Status DC Oxycodone/ Acetaminophen (Percocet 5/325) 1 tab PRN Q4HRS PRN PO PAIN; Start 01/24/18 at 01:00 Carvedilol (Coreg) 12.5 mg 1X ONCE PO Last administered on 01/24/18at 01:05; Start 01/24/18 at 01:00; Stop 01/24/18 at 01:04; Status DC Nicardipine HCl 50 mg/Sodium Chloride 270 ml @ 32.4 mls/hr CONT PRN IV SEE I/ O RECORD Last administered on 01/26/18at 10:21; Start 01/24/18 at 03:00 Acetaminophen (Tylenol) 650 mg PRN Q6HRS PRN PEG MILD PAIN / TEMP; Start 01/24 at 03:15; Status Cancel Ondansetron HCl (Zofran) 4 mg PRN Q6HRS PRN IV NAUSEA/VOMITING, 1ST CHOICE Last administered on 01/25/18at 22:46; Start 01/24/18 at 03:15 Metoclopramide HCl (Reglan Vial) 5 mg PRN Q6HRS PRN IV NAUSEA/VOMITING, 3RD CHOICE Last administered on 01/25/18at 11:53; Start 01/24/18 at 03:15; Stop at 15:35; Status DC Prochlorperazine Edisylate (Compazine) 10 mg PRN Q6HRS PRN IV NAUSEA/VOMITING, 2ND CHOICE Last administered on 01/26/18at 01:00; Start 01/24/18 at 03:15 Pantoprazole Sodium (Protonix) 40 mg 1X ONCE PO Last administered on at 03:13; Start 01/24/18 at 03:30; Stop 01/24/18 at 03:31; Status DC Acetaminophen (Tylenol) 650 mg PRN Q6HRS PRN PO MIGRAINE HEADACHE Last administered on 01/26/18at 04:16; Start 01/24/18 at 03:15 Insulin Human Lispro (HumaLOG) 10 units 1X ONCE SQ Last administered on at 05:09; Start 01/24/18 at 05:00; Stop 01/24/18 at 05:02; Status DC Magnesium Sulfate/ Dextrose 100 ml @ 100 mls/hr 1X ONCE IV Last administered on 01/24/18at 12:01; Start 01/24/18 at 09:15; Stop 01/24/18 at 10:14; Status DC Metoprolol Tartrate (Lopressor Vial) 5 mg Q6HRS IVP Last administered on at 11:08; Start 01/24/18 at 11:00; Stop 01/25/18 at 11:41; Status DC Trimethobenzamide HCl (Tigan Im) 200 mg PRN Q6HRS PRN IM NAUSEA/VOMITING; Start 01/24/18 at 11:00 Morphine Sulfate (Morphine Sulfate) 2 mg PRN Q2HR PRN IV MODERATE PAIN; Start 01/24/18 at 11:00 Amlodipine Besylate (Norvasc) 5 mg DAILY PO ; Start 01/24/18 at 11:30 Clonidine HCl (Catapres) 0.2 mg BID PO Last administered on 01/25/18at 21:01; Start 01/24/18 at 11:30 Clopidogrel Bisulfate (Plavix) 75 mg DAILY PO Last administered on 01/24/18at 14:12; Start 01/24/18 at 11:30 Insulin Glargine (Lantus) 4 units [id number] SQ ; Start 01/24/18 at 11:30; Stop 01/24/18 at 11:30; Status DC Insulin Glargine (Lantus) 4 units QHS SQ ; Start 01/24/18 at 21:00; Status UNV Carvedilol (Coreg) 25 mg BIDWMEALS PO ; Start 01/24/18 at 17:00 Non-Formulary Medication (Hydrochlorothiazide (Hydrochlorothiazide Capsule ) ) 10 mg BID PO ; Start 01/24/18 at 21:00; Stop 01/24/18 at 21:00; Status DC Mycophenolate Mofetil (Cellcept) 250 mg BID PO Last administered on 01/24/18at 12:01; Start 01/24/18 at 12:00; Stop 01/24/18 at 15:58; Status DC Pantoprazole Sodium (Protonix) 40 mg DAILYAC PO ; Start 01/24/18 at 11:30; Stop 01/24/18 at 12:01; Status DC Tacrolimus (Prograf) 2 mg BID PO Last administered on 01/24/18at 12:02; Start 01/24/18 at 12:00; Stop 01/24/18 at 13:07; Status DC Insulin Glargine (Lantus) 4 units BID SQ Last administered on 01/26/18at 09:54 ; Start 01/24/18 at 11:30 Pantoprazole Sodium (PROTONIX VIAL for IV PUSH) 40 mg DAILYAC IVP Last administered on 01/25/18at 09:34; Start 01/24/18 at 13:00; Stop 01/25/18 at 15 :35; Status DC Tacrolimus (Prograf) 4 mg DAILY PO ; Start 01/25/18 at 09:00; Stop 01/25/18 at 09:00; Status DC Tacrolimus (Prograf) 3 mg QHS PO ; Start 01/24/18 at 21:00; Stop 01/24/18 at 21:00; Status DC Tacrolimus (Prograf) 2 mg DAILY SL Last administered on 01/26/18at 09:52; Start 01/25/18 at 09:00 Tacrolimus (Prograf) 1 mg QHS SL Last administered on 01/25/18at 21:02; Start 01/24/18 at 21:00 Sodium Chloride (Saline Mist Nasal) 1 bryan PRN Q1HR PRN NS NASAL CONGESTION; Start 01/24/18 at 15:00; Stop 01/24/18 at 17:28; Status DC Gabapentin (Neurontin) 100 mg TID PO ; Start 01/24/18 at 16:00 Mycophenolate Mofetil 250 mg/ Dextrose 42 ml @ 21 mls/hr Q12H IV Last administered on 01/26/18at 10:38; Start 01/24/18 at 21:00 Tacrolimus (Prograf) 0.5 mg QHS SL Last administered on 01/25/18at 21:02; Start 01/24/18 at 21:00 Sodium Chloride (Saline Mist Nasal) 1 bryan PRN Q1HR PRN NS NASAL CONGESTION; Start 01/24/18 at 17:30 Sodium Chloride 1,000 ml @ 75 mls/hr [id number] IV ; Start 01/25/18 at 07:30 Fentanyl Citrate (Fentanyl 2ml Vial) 50 mcg PRN Q3HRS PRN IV SEVERE PAIN Last administered on 01/25/18at 22:46; Start 01/25/18 at 09:15 Sodium Chloride 1,000 ml @ 75 mls/hr [id number] IV Last administered on at 09:35; Start 01/25/18 at 09:15 Metoprolol Tartrate (Lopressor Vial) 7.5 mg Q6HRS IVP ; Start 01/25/18 at 18:00 ; Stop 01/25/18 at 18:00; Status DC Clonidine HCl (Catapres Tts-3) 1 patch WEEKLY TD Last administered on at 14:02; Start 01/25/18 at 13:00 Labetalol HCl (Normodyne Iv Push) 20 mg PRN Q4HRS PRN IVP HYPERTENSION, SEE COMMENTS Last administered on 01/25/18at 14:05; Start 01/25/18 at 13:00 Ringer's Solution 1,000 ml @ 30 mls/hr Q24H IV ; Start 01/25/18 at 15:15; Status Cancel Propofol 20 ml @ As Directed STK-MED ONCE IV ; Start 01/25/18 at 15:07; Stop 01/25/18 at 15:08; Status DC Lidocaine HCl (Xylocaine-Mpf 1% 2ml Vial) 2 ml STK-MED ONCE .ROUTE ; Start at 15:07; Stop 01/25/18 at 15:08; Status DC Sodium Chloride 1,000 ml @ 0 mls/hr Q0M IV Last administered on 01/25/18at 15: 13; Start 01/25/18 at 15:15; Stop 01/25/18 at 15:43; Status DC Metoclopramide HCl (Reglan Vial) 5 mg Q6HRS IV Last administered on 01/26/18at 05:59; Start 01/25/18 at 18:00 Pantoprazole Sodium (PROTONIX VIAL for IV PUSH) 40 mg BIDAC IVP Last administered on 01/26/18at 09:52; Start 01/25/18 at 16:30 Levofloxacin/ Dextrose 100 ml @ 100 mls/hr Q24H IV ; Start 01/26/18 at 08:30; Stop 01/26/18 at 09:32; Status DC Levalbuterol HCl (Xopenex) 1.25 mg PRN Q6HRS PRN NEB SHORTNESS OF BREATH Last administered on 01/26/18at 10:39; Start 01/26/18 at 08:45 Piperacillin Sod/ Tazobactam Sod (Zosyn Per Pharmacy) 1 each PRN DAILY PRN MC SEE COMMENTS; Start 01/26/18 at 10:00 Furosemide (Lasix) 40 mg DAILY IVP Last administered on 01/26/18at 10:21; Start 01/26/18 at 10:30 Piperacillin Sod/ Tazobactam Sod 3.375 gm/Sodium Chloride 50 ml @ 100 mls/hr Q6HRS IV Last administered on 01/26/18at 10:38; Start 01/26/18 at 11:00 Active Scripts Active Oxycodone-Acetaminophen 5-325 (Oxycodone Hcl/Acetaminophen) 1 Each Tablet 1 Tab PO PRN Q4HRS PRN Reported Prograf (Tacrolimus) 1 Mg Capsule 3 Cap PO QHS Prograf (Tacrolimus) 1 Mg Capsule 4 Cap PO DAILY Lantus Solostar (Insulin Glargine,Hum.rec.anlog) 100 Unit/1 Ml Insuln.pen 4 Unit SQ DAILYWBKFT Lantus Solostar (Insulin Glargine,Hum.rec.anlog) 100 Unit/1 Ml Insuln.pen 4 Unit SQ QHS Amlodipine Besylate 5 Mg Tablet 5 Mg PO DAILY Clonidine Hcl 0.2 Mg Tablet 1 Tab PO BID Clopidogrel (Clopidogrel Bisulfate) 75 Mg Tablet 1 Tab PO DAILY Cellcept (Mycophenolate Mofetil) 250 Mg Capsule 1 Cap PO BID Pantoprazole Sodium 20 Mg Tablet.dr 20 Mg PO DAILY Hydrochlorothiazide Capsule (Hydrochlorothiazide) 12.5 Mg Capsule 10 Mg PO BID Carvedilol 25 Mg Tablet 2 Tab PO DAILYBFRSUP Vitals/I & O Vital Sign - Last 24 Hours 01/25/18 01/25/18 01/25/18 01/25/18 14:05 14:30 14:46 14:48 Temp 97.9 97.9 Pulse 113 100 102 Resp 20 B/P (MAP) 191/82 (118) Pulse Ox 98 O2 Delivery Room Air 01/25/18 01/25/18 01/25/18 01/25/18 15:07 15:33 15:48 15:58 Temp 99.3 99.6 99.3 99.6 Pulse 114 107 107 108 Resp 20 20 20 B/P (MAP) 188/78 (114) 167/78 169/77 172/74 Pulse Ox 98 100 94 95 O2 Delivery Simple Mask Room Air Nasal Cannula O2 Flow Rate 10 2 01/25/18 01/25/18 01/25/18 01/25/18 16:05 16:20 16:35 16:50 Pulse 110 110 109 116 B/P (MAP) 187/89 (121) 124/80 (95) 155/63 (93) 151/69 (96) 01/25/18 01/25/18 01/25/18 01/25/18 17:05 17:20 17:35 17:50 Pulse 116 114 114 112 B/P (MAP) 163/67 (99) 153/72 (99) 155/71 (99) 147/67 (93) 01/25/18 01/25/18 01/25/18 01/25/18 18:05 18:20 18:35 18:50 Pulse 112 116 116 116 B/P (MAP) 147/62 (90) 152/63 (92) 153/73 (99) 142/65 (90) 01/25/18 01/25/18 01/25/18 01/25/18 19:00 19:39 20:00 20:05 Pulse 120 118 120 Resp 22 B/P (MAP) 161/69 (99) 142/65 (90) 156/65 (95) Pulse Ox 95 O2 Delivery Room Air Room Air 01/25/18 01/25/18 01/25/18 01/25/18 21:01 21:03 22:46 23:16 Pulse 118 130 Resp 18 18 B/P (MAP) 142/65 158/80 (106) Pulse Ox 95 95 O2 Delivery Room Air Room Air O2 Flow Rate 2.0 01/25/18 01/26/18 01/26/18 01/26/18 23:22 00:14 01:07 02:10 Temp 98.9 98.9 Pulse 126 130 135 117 Resp 20 B/P (MAP) 156/76 (102) 177/85 (115) 192/87 (122) 138/59 (85) Pulse Ox 95 O2 Delivery Nasal Cannula 01/26/18 01/26/18 01/26/18 01/26/18 03:21 04:00 04:07 05:07 Temp 101.0 101.0 Pulse 122 139 138 122 Resp 22 B/P (MAP) 158/78 (104) 172/79 (110) 146/69 (94) Pulse Ox 89 O2 Delivery Room Air 01/26/18 01/26/18 01/26/18 01/26/18 06:11 07:53 10:40 11:00 Temp 99.4 98.8 99.4 98.8 Pulse 121 132 Resp 18 B/P (MAP) 148/72 (97) 168/68 (101) Pulse Ox 94 92 O2 Delivery Venturi Mask Venturi Mask Room Air O2 Flow Rate 15.0 15.0 Intake and Output 01/25/18 01/25/18 01/26/18 15:00 23:00 07:00 Intake Total 800 ml 770 ml 200 ml Output Total 450 ml Balance 800 ml 320 ml 200 ml NYASIA SHEPPARD III DO Jan 26, 2018 13:14
--- NOTE | 2018-01-26 15:13 | PDOC ---
PROGRESS NOTES Assessment Assessment Cluster headache. Hypertensive emergency, SBP 229 mmHg. Left pleural effusion. Fever. CAD. DM. HTN. HLD. PVD. S/p kidney transplant, bilateral. Renal failure. 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 No evidence of acute CVA this time. RECOMMENDATIONS/PLAN: BP control. Pain control. Neurontin 100 mg tid. Treat medical diseases. Discussed with his sisters at bedside on 01/26/18. HISTORY OF THE PRESENT ILLNESS: 52-y-old AA male patient with above medical diseases has history of migraine headache but not frequent maybe about 2 to 3 times a years lasting for about 1 week each with associated with nausea and vomiting. He was evaluated in [facility] recently for his headaches and he believed he had HCT and brain MRI there. He has headaches, nausea, vomiting this time since 01/20/18. No focalized sensory or motor deficits. Headaches are significantly improved and vomiting stopped since p.m of 01/24. PAST MEDICAL HISTORY Cardiovascular: CAD, HTN, Hyperlipidemia, Other (PAD) Pulmonary: No pertinent hx CENTRAL NERVOUS SYSTEM: Migraine GI: GERD Heme/Onc: Anemia NOS, Other (chronic immunosuppression) Psych: No pertinent hx Musculoskeletal: Osteoarthritis Infectious disease: No pertinent hx ENT: No pertinent hx Renal/: Chronic renal failure Endocrine: Diabetes (1) PAST SURGICAL HISTORY Renal transplant 2003 then failed then 2007; bilateral BKA due to DM and PA. FAMILY HISTORY Heart Disease ALLERGY: Reviewed. MEDICATIONS: Refer to [facility] SOCIAL HISTORY: Lives with family. Denies current smoking, drinking, and illicit drug use. REVIEW OF SYSTEMS: Constitutional: No malnutrition, weight loss, cachexia. Head: No traumatic brain or head injury. Skin: No edema, or rash. Ear: No infection. Eyes: Left eye blindness. Nose: No bleeding or purulent discharges. Hearing: No hearing decrease. Neck: No injury. Cardiac: CAD, HTN, HLD. Pulmonary: No COPD. GI: No GI ulcer, GI bleeding. Urinary/genital: Kidney transplant. Endocrinologic: Diabetes Mellitus. Skeletomuscular: BKA. Neurological: see HP. Psychiatric: Denies drug use/abuse. Otherwise, not [id number] review of systems. PHYSICAL EXAMINATION: General appearance is in no acute distress. HEENT: Normocephalic and nontraumatic. Nose, ears, and throat are unremarkable. Left eye prosthetic. Neck is supple. No lymphadenopathy. No crepitus. Cardiovascular: S1, S2, regular rate and rhythm. Pulmonary: Clear to auscultation bilaterally. Abdomen: Bowel sounds are positive. Extremities: No rash, lesions, or edema. No restriction of range of motion NEUROLOGICAL EXAMINATION: Alert Oriented to time, place and person. Right eye pupil 2 mm reactive to light stimulation. Left prosthetic eye. EOMI. CN: no focal findings. Muscle tone: within normal. Muscle strength: 5 DTR: 2 UE, 1 at knee. Plantar reflex: BKA. Gait: Able to walk. Sensory exam: no abnormal findings. No acute cerebellar signs elicited. F-T-N test accurate. Objective Objective Vital Signs Date Time Temp Pulse Resp B/P (MAP) Pulse Ox O2 Delivery O2 Flow Rate FiO2 01/26/18 11:00 98.8 132 18 168/68 (101) 92 Room Air 98.8 01/26/18 10:40 15.0 Intake and Output 01/26/18 07:00 Intake Total 1770 ml Output Total 450 ml Balance 1320 ml Intake Oral 1300 ml IV Total 470 ml Output Urine Total 450 ml Vitals Signs Vitals VS - Last 72 Hours, by Label Date Time Temp Pulse Resp B/P (MAP) Pulse Ox O2 Delivery O2 Flow Rate FiO2 01/26/18 11:00 98.8 132 18 168/68 (101) 92 Room Air 98.8 01/26/18 10:40 94 Venturi Mask 15.0 01/26/18 07:53 Venturi Mask 15.0 01/26/18 06:11 99.4 121 148/72 (97) 99.4 01/26/18 05:07 122 146/69 (94) 01/26/18 04:07 138 172/79 (110) 01/26/18 04:00 101.0 139 22 89 Room Air 101.0 01/26/18 03:21 122 158/78 (104) 01/26/18 02:10 117 138/59 (85) 01/26/18 01:07 135 192/87 (122) 01/26/18 00:14 130 177/85 (115) 01/25/18 23:22 98.9 126 20 156/76 (102) 95 Nasal Cannula 98.9 01/25/18 23:16 18 95 Room Air 2.0 10/26/18 22:46 18 95 Room Air 01/25/18 21:03 130 158/80 (106) 01/25/18 21:01 118 142/65 01/25/18 20:05 120 156/65 (95) 01/25/18 20:00 Room Air 01/25/18 19:39 118 22 142/65 (90) 95 Room Air 01/25/18 19:00 120 161/69 (99) 01/25/18 18:50 116 142/65 (90) 01/25/18 18:35 116 153/73 (99) 01/25/18 18:20 116 152/63 (92) 01/25/18 18:05 112 147/62 (90) 01/25/18 17:50 112 147/67 (93) 01/25/18 17:35 114 155/71 (99) 01/25/18 17:20 114 153/72 (99) 01/25/18 17:05 116 163/67 (99) 01/25/18 16:50 116 151/69 (96) 01/25/18 16:35 109 155/63 (93) 01/25/18 16:20 110 124/80 (95) 01/25/18 16:05 110 187/89 (121) 01/25/18 15:58 108 20 172/74 95 Nasal Cannula 2 01/25/18 15:48 107 20 169/77 94 Room Air 01/25/18 15:33 99.6 107 20 167/78 100 Simple Mask 10 99.6 01/25/18 15:07 99.3 114 188/78 (114) 98 99.3 01/25/18 14:48 97.9 102 20 98 97.9 01/25/18 14:46 Room Air 01/25/18 14:30 100 191/82 (118) 01/25/18 14:05 113 01/25/18 11:11 98.8 116 159/72 (101) 98 98.8 01/25/18 11:08 120 01/25/18 08:10 Room Air Laboratory Laboratory Laboratory Tests Test 01/25/18 17:10 01/25/18 21:25 01/26/18 00:50 01/26/18 04:03 Glucose (Fingerstick) 296 mg/dL (70-99) 186 mg/dL (70-99) 181 mg/dL (70-99) 161 mg/dL (70-99) Test 01/26/18 08:00 01/26/18 08:20 01/26/18 08:35 01/26/18 09:12 White Blood Count 10.6 x10^3/uL (4.0-11.0) Red Blood Count 2.84 x10^6/uL (4.30-5.70) Hemoglobin 8.9 g/dL (13.0-17.5) Hematocrit 25.2 % (39.0-53.0) Mean Corpuscular Volume 89 fL (79-100) Mean Corpuscular Hemoglobin 31 pg (25-35) Mean Corpuscular Hemoglobin Concent 35 g/dL (31-37) Red Cell Distribution Width 13.4 % (11.5-14.5) Platelet Count 237 x10^3/uL (140-400) Neutrophils (%) (Auto) 69 % (31-73) Lymphocytes (%) (Auto) 12 % (24-48) Monocytes (%) (Auto) 19 % (0-9) Eosinophils (%) (Auto) 0 % (0-3) Basophils (%) (Auto) 0 % (0-3) Neutrophils # (Auto) 7.3 x10^3uL (1.8-7.7) Lymphocytes # (Auto) 1.2 x10^3/uL (1.0-4.8) Monocytes # (Auto) 2.0 x10^3/uL (0.0-1.1) Eosinophils # (Auto) 0.0 x10^3/uL (0.0-0.7) Basophils # (Auto) 0.0 x10^3/uL (0.0-0.2) Sodium Level 142 mmol/L (136-145) Potassium Level 4.2 mmol/L (3.5-5.1) Chloride Level 108 mmol/L (98-107) Carbon Dioxide Level 23 mmol/L (21-32) Anion Gap 11 (6-14) Blood Urea Nitrogen 29 mg/dL (8-26) Creatinine 2.1 mg/dL (0.7-1.3) Estimated GFR (Cockcroft-Gault) 33.6 Glucose Level 185 mg/dL (70-99) Calcium Level 8.7 mg/dL (8.5-10.1) Glucose (Fingerstick) 182 mg/dL (70-99) 180 mg/dL (70-99) O2 Saturation 87 % (92-99) Arterial Blood pH 7.34 (7.35-7.45) Arterial Blood pCO2 at Patient Temp 36 mmHg (35-46) Arterial Blood pO2 at Patient Temp 57 mmHg (75-108) Arterial Blood HCO3 19 mmol/L (21-28) Arterial Blood Base Excess -6 mmol/L (-3-3) FiO2 40 Test 01/26/18 12:13 Glucose (Fingerstick) 224 mg/dL (70-99) Medication Medications Current Medications Furosemide (Lasix) 40 mg DAILY IVP Last administered on 01/26/18at 10:21; Start 01/26/18 at 10:30 Levalbuterol HCl (Xopenex) 1.25 mg PRN Q6HRS PRN NEB SHORTNESS OF BREATH Last administered on 01/26/18at 10:39; Start 01/26/18 at 08:45 Levofloxacin/ Dextrose 100 ml @ 100 mls/hr Q24H IV ; Start 01/26/18 at 08:30; Stop 01/26/18 at 09:32; Status DC Metoclopramide HCl (Reglan Vial) 5 mg Q6HRS IV Last administered on 01/26/18at 13:13; Start 01/25/18 at 18:00 Metoprolol Tartrate (Lopressor Vial) 7.5 mg Q6HRS IVP ; Start 01/25/18 at 18:00 ; Stop 01/25/18 at 18:00; Status DC Pantoprazole Sodium (PROTONIX VIAL for IV PUSH) 40 mg BIDAC IVP Last administered on 01/26/18at 09:52; Start 01/25/18 at 16:30 Piperacillin Sod/ Tazobactam Sod (Zosyn Per Pharmacy) 1 each PRN DAILY PRN MC SEE COMMENTS; Start 01/26/18 at 10:00 Piperacillin Sod/ Tazobactam Sod 3.375 gm/Sodium Chloride 50 ml @ 100 mls/hr Q6HRS IV Last administered on 01/26/18at 10:38; Start 01/26/18 at 11:00 Ringer's Solution 1,000 ml @ 30 mls/hr Q24H IV ; Start 01/25/18 at 15:15; Status Cancel Sodium Chloride 1,000 ml @ 0 mls/hr Q0M IV Last administered on 01/25/18at 15: 13; Start 01/25/18 at 15:15; Stop 01/25/18 at 15:43; Status DC Comment Review of Relevant I have reviewed the following items nadiya (where applicable) has been applied. KELSEY DUNCAN MD Jan 26, 2018 15:13
[2018-01-26] MEDS: TACROLIMUS 0.5 MG CAPSULE SL SCH (21:33)
[2018-01-26] MEDS: ONDANSETRON PF 4 MG/2 ML VIAL. IV PRN (22:04)
[2018-01-26] MEDS: fentaNYL PF VIAL 100 MCG/2 ML VIAL IV PRN (22:05)
[2018-01-27] VITALS (19 sets, daily range): BP systolic 108–158; BP diastolic 52–107
--- NOTE | 2018-01-27 00:10 | CONS ---
DATE OF CONSULTATION: 01/26/2018 ATTENDING PHYSICIAN: Dr. Gonzalez. REASON FOR CONSULTATION: The patient is seen in pulmonary consultation at the request of Dr. Gonzalez for acute respiratory failure, abnormal x-ray. HISTORY OF PRESENT ILLNESS: The patient is a 52-year-old with peripheral vascular disease, coronary artery disease and end-stage renal disease, status post transplant. He presented mainly because of headaches and vomiting. In fact, he states that he was over at [facility] sometime last week for similar type of symptoms that was worked up. This morning, the patient became more short of breath. Chest x-ray was obtained revealing evidence of bilateral pulmonary infiltrates compatible with CHF and left lower lobe pneumonia, effusion. The patient denies fever, no productive cough. He has had CHF in the past. He is immunocompromised with CellCept and Prograf. PAST MEDICAL HISTORY: 1. Coronary artery disease with previous stent placement. 2. Hypertension. 3. Chronic heart failure. 4. Hyperlipidemia. 5. Peripheral arterial disease. 6. End-stage renal disease, status post transplant. 7. Bilateral knee amputation. 8. Diabetes. 9. Osteoarthritis. 10. Gastroesophageal reflux. PAST SURGICAL HISTORY: Renal transplant in 2003, failed and redone in 2007; status post bilateral knee amputation. FAMILY HISTORY: Heart disease. SOCIAL HISTORY: He denies alcohol or tobacco. ALLERGIES: AMOXICILLIN CAUSES SKIN RASH, PROMETHAZINE, SUCCINYLCHOLINE. REVIEW OF SYSTEMS: As indicated above, otherwise, a 10-point system was reviewed and negative. PHYSICAL EXAMINATION: VITAL SIGNS: Stable. O2 saturation was greater than 92%. Since admission, today, he had a T-max of 101.0. HEENT: Eyes, the sclerae were nonicteric. NECK: Jugular venous distention was not elevated. No lymphadenopathy. CHEST: Full expansion. LUNGS: Crackles in the bases. Diminished breath sounds in the left base. No wheezes. CARDIOVASCULAR: Regular rate and rhythm with S1, S2, no S3. Tachycardic. ABDOMEN: Soft. EXTREMITIES: Evidence of BKA. LABORATORY DATA: White count was normal, hemoglobin and hematocrit were noted. Arterial blood gas this morning, pH of 7.34, PaCO2 of 36, PaO2 of 57. Electrolytes were noted. BUN was elevated, creatinine was elevated. Influenza screen was negative. IMPRESSION: 1. Acute respiratory failure. 2. Left lower lobe pneumonia, suspect gram negative. 3. Acute on chronic heart failure. 4. End-stage renal disease, status post renal transplant. 5. Immunocompromised. 6. Accelerated hypertension. 7. Type 2 diabetes. PLAN: 1. We will recommend IV antibiotics. 2. Oxygen supplementation. 3. Diurese. 4. Continue other medications. 5. We will follow along and make recommendations depending on the patient's response. I do appreciate the privilege in sharing this patient's care. SOPHIA MCGOWAN MD DR: AMALIA/silviano JOB#: [id number] / [id number]
[2018-01-27] MEDS: LEVALBUTEROL 1.25 MG/0.5 ML NEBU. NEB PRN ×3 (03:35→12:19)
[2018-01-27] MEDS: PIPERACILLIN/TAZOBACTAM 3.375 GM in IV NORMAL SALINE 50ML 50 ML IV SCH ×4 (05:02→23:50)
[2018-01-27] MEDS: METOCLOPRAMIDE HCL 10 MG/2 ML VIAL. IV SCH ×4 (05:02→23:50)
[2018-01-27] MEDS: PROCHLORPERAZINE 10 MG/2 ML VIAL. IV PRN (06:31)
[2018-01-27] MEDS: PANTOPRAZOLE IV PUSH 40 MG VIAL. IVP SCH ×2 (07:54→15:26)
[2018-01-27] MEDS: FUROSEMIDE 40 MG/4 ML VIAL. IVP SCH (07:54)
[2018-01-27] MEDS: CARVEDILOL 12.5 MG TABLET. PO SCH ×2 (07:55→15:27)
[2018-01-27] MEDS: CLOPIDOGREL BISULFATE 75 MG TABLET PO SCH (07:55)
[2018-01-27] MEDS: GABAPENTIN 100 MG CAPSULE. PO SCH ×3 (07:55→21:00)
[2018-01-27] MEDS: amLODIPine BESYLATE 5 MG TABLET PO SCH (07:56)
[2018-01-27] MEDS: cloNIDine HCL 0.2 MG TABLET PO SCH ×2 (07:56→21:01)
[2018-01-27] MEDS: INSULIN LISPRO 300 UNITS/3 ML INSULN.PEN. SQ SCH ×3 (07:57→17:49)
[2018-01-27] MEDS: INSULIN GLARGINE 300 UNITS/3 ML INSULN.PEN. SQ SCH ×2 (07:58→21:15)
[2018-01-27] MEDS: TACROLIMUS 1 MG CAPSULE SL SCH (07:59)
--- NOTE | 2018-01-27 09:26 | PDOC ---
Infectious Disease Note Vital Sign Vital Signs Vital Signs Date Time Temp Pulse Resp B/P (MAP) Pulse Ox O2 Delivery O2 Flow Rate FiO2 01/27/18 07:56 132 156/69 01/27/18 07:46 Venturi Mask 15.0 01/27/18 07:16 89 01/27/18 07:00 99.0 20 99.0 Labs Lab Laboratory Tests Test 01/26/18 09:12 01/26/18 12:13 01/26/18 17:14 01/26/18 17:20 Glucose (Fingerstick) 180 mg/dL (70-99) 224 mg/dL (70-99) 231 mg/dL (70-99) Lactic Acid Level 0.7 mmol/L (0.4-2.0) Test 01/26/18 20:27 01/27/18 07:55 Glucose (Fingerstick) 230 mg/dL (70-99) 307 mg/dL (70-99) Objective Assessment HCAP Fever Chronic immunosuppression. h/o renal transplant 2007 Allergy PCN/amoxicillin - rash. Tolerating Zosyn w/o problems Acute hypoxic respiratory failure - venti mask 50% FiO2 -Influenza screen neg Acute on chronic CHF JAMAL - renal following PVD. h/o BKA bilat DM type I (since age 14 months) Plan Plan of Care Continue Zosyn - monitor for rash Add Zyvox Levaquin contraindicated with Prograf Sputum culture Strep ag, legionella ag, mycoplasma Igm f/u BC Monitor labs/temp Supportive care D/w RN D/w Dr. Baxter Thank you [id number] Patient seen and examined. Chart reviewed in detail. Case discussed with MEDICAL DEVICE ASSEMBLER. Agree with above Plan. SHIVA MEANS APRN Jan 27, 2018 09:26 KAIN BAXTER MD Jan 27, 2018 19:16
[2018-01-27] MEDS: MYCOPHENOLATE MOFETIL IV SCH (09:33)
[2018-01-27] MEDS: DEXTROSE 5% IV SCH (09:33)
--- NOTE | 2018-01-27 10:10 | RAD ---
Examination: PORTABLE CHEST 1V History: chf Comparison/Correlation: 01/26/2018 chest AP 1 view Findings: Portable upright frontal view chest was obtained. Heart size is borderline. Left basilar retrocardiac opacification which may represent lung consolidation is present. Vascular congestion is present. Small left pleural effusion is present. Impression: Retrocardiac left basilar consolidation spec. Vascular congestion and small left effusion. Electronically signed by: Myron Durbin MD (01/27/2018 10:07 AM) [facility]
[2018-01-27 10:12] LABS: BASO # 0.1 x10^3/uL (0.0-0.2); BASO % 0 % (0-3); EOS % 0 % (0-3); HEMATOCRIT 24.6 % (39.0-53.0); HEMOGLOBIN 8.5 g/dL (13.0-17.5); LYMPH # 0.4 x10^3/uL (1.0-4.8); LYMPH % 3 % (24-48); MEAN CORPUSCULAR HEMOGLOBIN 31 pg (25-35); MEAN CORPUSCULAR HGB CONC 35 g/dL (31-37); MEAN CORPUSCULAR VOLUME 89 fL (79-100); MONO # 1.5 x10^3/uL (0.0-1.1); MONO % 12 % (0-9); NEUT # 10.9 x10^3uL (1.8-7.7); NEUT % 85 % (31-73); PLATELET COUNT 230 x10^3/uL (140-400); RED BLOOD COUNT 2.77 x10^6/uL (4.30-5.70); RED CELL DISTRIBUTION WIDTH 13.1 % (11.5-14.5)
[2018-01-27 10:26] LABS: CALCIUM 8.5 mg/dL (8.5-10.1); CREATININE 2.9 mg/dL (0.7-1.3); GFR 23.1; POTASSIUM 3.8 mmol/L (3.5-5.1)
[2018-01-27] MEDS: IV NORMAL SALINE 1000ML BAG 1,000 ML IV SCH ×2 (10:47)
--- NOTE | 2018-01-27 11:01 | PDOC ---
PULMONARY PROGRESS NOTES Subjective MORE SOA THIS AM NOW BETTER Vitals Vital Signs Date Time Temp Pulse Resp B/P (MAP) Pulse Ox O2 Delivery O2 Flow Rate FiO2 01/27/18 07:56 132 156/69 01/27/18 07:46 Venturi Mask 15.0 01/27/18 07:16 89 01/27/18 07:00 99.0 20 99.0 ROS: No Nausea, No Chest Pain, No Abdominal Pain Lungs: Crackles Cardiovascular: S1, S2 Abdomen: Soft Neuro Exam: Alert Extremities: Other (S/P BKA) Skin: Warm Labs Laboratory Tests Test 01/25/18 14:05 01/25/18 17:10 01/25/18 21:25 01/25/18 21:30 Glucose (Fingerstick) 317 mg/dL (70-99) 296 mg/dL (70-99) 186 mg/dL (70-99) Tacrolimus (Prograf) Level See separate report Test 01/26/18 00:50 01/26/18 04:03 01/26/18 08:00 01/26/18 08:20 Glucose (Fingerstick) 181 mg/dL (70-99) 161 mg/dL (70-99) 182 mg/dL (70-99) White Blood Count 10.6 x10^3/uL (4.0-11.0) Red Blood Count 2.84 x10^6/uL (4.30-5.70) Hemoglobin 8.9 g/dL (13.0-17.5) Hematocrit 25.2 % (39.0-53.0) Mean Corpuscular Volume 89 fL (79-100) Mean Corpuscular Hemoglobin 31 pg (25-35) Mean Corpuscular Hemoglobin Concent 35 g/dL (31-37) Red Cell Distribution Width 13.4 % (11.5-14.5) Platelet Count 237 x10^3/uL (140-400) Neutrophils (%) (Auto) 69 % (31-73) Lymphocytes (%) (Auto) 12 % (24-48) Monocytes (%) (Auto) 19 % (0-9) Eosinophils (%) (Auto) 0 % (0-3) Basophils (%) (Auto) 0 % (0-3) Neutrophils # (Auto) 7.3 x10^3uL (1.8-7.7) Lymphocytes # (Auto) 1.2 x10^3/uL (1.0-4.8) Monocytes # (Auto) 2.0 x10^3/uL (0.0-1.1) Eosinophils # (Auto) 0.0 x10^3/uL (0.0-0.7) Basophils # (Auto) 0.0 x10^3/uL (0.0-0.2) Sodium Level 142 mmol/L (136-145) Potassium Level 4.2 mmol/L (3.5-5.1) Chloride Level 108 mmol/L (98-107) Carbon Dioxide Level 23 mmol/L (21-32) Anion Gap 11 (6-14) Blood Urea Nitrogen 29 mg/dL (8-26) Creatinine 2.1 mg/dL (0.7-1.3) Estimated GFR (Cockcroft-Gault) 33.6 Glucose Level 185 mg/dL (70-99) Calcium Level 8.7 mg/dL (8.5-10.1) Test 01/26/18 08:35 01/26/18 09:12 01/26/18 12:13 01/26/18 17:14 O2 Saturation 87 % (92-99) Arterial Blood pH 7.34 (7.35-7.45) Arterial Blood pCO2 at Patient Temp 36 mmHg (35-46) Arterial Blood pO2 at Patient Temp 57 mmHg (75-108) Arterial Blood HCO3 19 mmol/L (21-28) Arterial Blood Base Excess -6 mmol/L (-3-3) FiO2 40 Glucose (Fingerstick) 180 mg/dL (70-99) 224 mg/dL (70-99) 231 mg/dL (70-99) Test 01/26/18 17:20 01/26/18 20:27 01/27/18 07:55 01/27/18 09:25 Lactic Acid Level 0.7 mmol/L (0.4-2.0) Glucose (Fingerstick) 230 mg/dL (70-99) 307 mg/dL (70-99) White Blood Count 13.0 x10^3/uL (4.0-11.0) Red Blood Count 2.77 x10^6/uL (4.30-5.70) Hemoglobin 8.5 g/dL (13.0-17.5) Hematocrit 24.6 % (39.0-53.0) Mean Corpuscular Volume 89 fL (79-100) Mean Corpuscular Hemoglobin 31 pg (25-35) Mean Corpuscular Hemoglobin Concent 35 g/dL (31-37) Red Cell Distribution Width 13.1 % (11.5-14.5) Platelet Count 230 x10^3/uL (140-400) Neutrophils (%) (Auto) 85 % (31-73) Lymphocytes (%) (Auto) 3 % (24-48) Monocytes (%) (Auto) 12 % (0-9) Eosinophils (%) (Auto) 0 % (0-3) Basophils (%) (Auto) 0 % (0-3) Neutrophils # (Auto) 10.9 x10^3uL (1.8-7.7) Lymphocytes # (Auto) 0.4 x10^3/uL (1.0-4.8) Monocytes # (Auto) 1.5 x10^3/uL (0.0-1.1) Eosinophils # (Auto) 0.0 x10^3/uL (0.0-0.7) Basophils # (Auto) 0.1 x10^3/uL (0.0-0.2) Sodium Level 137 mmol/L (136-145) Potassium Level 3.8 mmol/L (3.5-5.1) Chloride Level 103 mmol/L (98-107) Carbon Dioxide Level 20 mmol/L (21-32) Anion Gap 14 (6-14) Blood Urea Nitrogen 32 mg/dL (8-26) Creatinine 2.9 mg/dL (0.7-1.3) Estimated GFR (Cockcroft-Gault) 23.1 Glucose Level 299 mg/dL (70-99) Calcium Level 8.5 mg/dL (8.5-10.1) Laboratory Tests Test 01/26/18 12:13 01/26/18 17:14 01/26/18 17:20 01/26/18 20:27 Glucose (Fingerstick) 224 mg/dL (70-99) 231 mg/dL (70-99) 230 mg/dL (70-99) Lactic Acid Level 0.7 mmol/L (0.4-2.0) Test 01/27/18 07:55 01/27/18 09:25 Glucose (Fingerstick) 307 mg/dL (70-99) White Blood Count 13.0 x10^3/uL (4.0-11.0) Red Blood Count 2.77 x10^6/uL (4.30-5.70) Hemoglobin 8.5 g/dL (13.0-17.5) Hematocrit 24.6 % (39.0-53.0) Mean Corpuscular Volume 89 fL (79-100) Mean Corpuscular Hemoglobin 31 pg (25-35) Mean Corpuscular Hemoglobin Concent 35 g/dL (31-37) Red Cell Distribution Width 13.1 % (11.5-14.5) Platelet Count 230 x10^3/uL (140-400) Neutrophils (%) (Auto) 85 % (31-73) Lymphocytes (%) (Auto) 3 % (24-48) Monocytes (%) (Auto) 12 % (0-9) Eosinophils (%) (Auto) 0 % (0-3) Basophils (%) (Auto) 0 % (0-3) Neutrophils # (Auto) 10.9 x10^3uL (1.8-7.7) Lymphocytes # (Auto) 0.4 x10^3/uL (1.0-4.8) Monocytes # (Auto) 1.5 x10^3/uL (0.0-1.1) Eosinophils # (Auto) 0.0 x10^3/uL (0.0-0.7) Basophils # (Auto) 0.1 x10^3/uL (0.0-0.2) Sodium Level 137 mmol/L (136-145) Potassium Level 3.8 mmol/L (3.5-5.1) Chloride Level 103 mmol/L (98-107) Carbon Dioxide Level 20 mmol/L (21-32) Anion Gap 14 (6-14) Blood Urea Nitrogen 32 mg/dL (8-26) Creatinine 2.9 mg/dL (0.7-1.3) Estimated GFR (Cockcroft-Gault) 23.1 Glucose Level 299 mg/dL (70-99) Calcium Level 8.5 mg/dL (8.5-10.1) Medications Active Scripts Medications Dose Route/Sig Max Daily Dose Days Date Category Prograf (Tacrolimus) 1 Mg Capsule 3 Cap PO QHS 01/24/18 Reported Prograf (Tacrolimus) 1 Mg Capsule 4 Cap PO DAILY 01/24/18 Reported Lantus Solostar (Insulin Glargine,Hum.rec.anlog) 100 Unit/1 Ml Insuln.pen 4 Unit SQ [id number] 01/24/18 Reported Lantus Solostar (Insulin Glargine,Hum.rec.anlog) 100 Unit/1 Ml Insuln.pen 4 Unit SQ QHS 01/24/18 Reported Amlodipine Besylate 5 Mg Tablet 5 Mg PO DAILY 01/24/18 Reported Clonidine Hcl 0.2 Mg Tablet 1 Tab PO BID 01/24/18 Reported Oxycodone-Acetaminophen 5-325 (Oxycodone Hcl/Acetaminophen) 1 Each Tablet 1 Tab PO PRN Q4HRS PRN 07/15/16 Rx Clopidogrel (Clopidogrel Bisulfate) 75 Mg Tablet 1 Tab PO DAILY 07/15/16 Reported Cellcept (Mycophenolate Mofetil) 250 Mg Capsule 1 Cap PO BID 07/15/16 Reported Pantoprazole Sodium 20 Mg Tablet.dr 20 Mg PO DAILY 07/15/16 Reported Hydrochlorothiazide Capsule (Hydrochlorothiazide) 12.5 Mg Capsule 10 Mg PO BID 07/15/16 Reported Carvedilol 25 Mg Tablet 2 Tab PO [id number] 07/15/16 Reported Impression . IMPRESSION: 1. Acute respiratory failure. 2. Left lower lobe pneumonia, suspect gram negative. 3. Acute on chronic heart failure. 4. End-stage renal disease, status post renal transplant. 5. Immunocompromised. 6. Accelerated hypertension. 7. Type 2 diabetes. CXR Impression: Retrocardiac left basilar consolidation spec. Vascular congestion and small left effusion. Plan . PRN BIPAP SPOKE WITH SISTER 1. We will recommend IV antibiotics. 2. Oxygen supplementation. 3. Diurese. 4. Continue other medications. . SOPHIA MCGOWAN MD Jan 27, 2018 11:01
[2018-01-27 12:01] LABS: MYCOPLASMA PATIENT NEGATIVE (NEGATIVE)
--- NOTE | 2018-01-27 12:51 | PDOC ---
PROGRESS NOTES Assessment Assessment Cluster headache. Hypertensive emergency, SBP 229 mmHg. Left LL pneumonia and pleural effusion. Fever. CAD. DM. HTN. HLD. PVD. S/p kidney transplant, bilateral. Renal failure. 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 No evidence of acute CVA this time. RECOMMENDATIONS/PLAN: BP control. Pain control. Neurontin 100 mg tid. Treat medical diseases. Discussed with his sisters at bedside on 01/27/18. HISTORY OF THE PRESENT ILLNESS: 52-y-old AA male patient with above medical diseases has history of migraine headache but not frequent maybe about 2 to 3 times a years lasting for about 1 week each with associated with nausea and vomiting. He was evaluated in [facility] recently for his headaches and he believed he had HCT and brain MRI there. He has headaches, nausea, vomiting this time since 01/20/18. No focalized sensory or motor deficits. Headaches are significantly improved and vomiting stopped since p.m of 01/24. PAST MEDICAL HISTORY Cardiovascular: CAD, HTN, Hyperlipidemia, Other (PAD) Pulmonary: No pertinent hx CENTRAL NERVOUS SYSTEM: Migraine GI: GERD Heme/Onc: Anemia NOS, Other (chronic immunosuppression) Psych: No pertinent hx Musculoskeletal: Osteoarthritis Infectious disease: No pertinent hx ENT: No pertinent hx Renal/: Chronic renal failure Endocrine: Diabetes (1) PAST SURGICAL HISTORY Renal transplant 2003 then failed then 2007; bilateral BKA due to DM and PA. FAMILY HISTORY Heart Disease ALLERGY: Reviewed. MEDICATIONS: Refer to [facility] SOCIAL HISTORY: Lives with family. Denies current smoking, drinking, and illicit drug use. REVIEW OF SYSTEMS: Constitutional: No malnutrition, weight loss, cachexia. Head: No traumatic brain or head injury. Skin: No edema, or rash. Ear: No infection. Eyes: Left eye blindness. Nose: No bleeding or purulent discharges. Hearing: No hearing decrease. Neck: No injury. Cardiac: CAD, HTN, HLD. Pulmonary: No COPD. GI: No GI ulcer, GI bleeding. Urinary/genital: Kidney transplant. Endocrinologic: Diabetes Mellitus. Skeletomuscular: BKA. Neurological: see HP. Psychiatric: Denies drug use/abuse. Otherwise, not [id number] review of systems. PHYSICAL EXAMINATION: General appearance is in no acute distress. HEENT: Normocephalic and nontraumatic. Nose, ears, and throat are unremarkable. Left eye prosthetic. Neck is supple. No lymphadenopathy. No crepitus. Cardiovascular: S1, S2, regular rate and rhythm. Pulmonary: Mildly coarse to auscultation bilaterally. Abdomen: Bowel sounds are positive. Extremities: No rash, lesions, or edema. No restriction of range of motion NEUROLOGICAL EXAMINATION: Alert Oriented to time, place and person. Right eye pupil 2 mm reactive to light stimulation. Left prosthetic eye. EOMI. CN: no focal findings. Muscle tone: within normal. Muscle strength: 5 DTR: 2 UE, 1 at knee. Plantar reflex: BKA. Gait: Able to walk. Sensory exam: no abnormal findings. No acute cerebellar signs elicited. F-T-N test accurate. Objective Objective Vital Signs Date Time Temp Pulse Resp B/P (MAP) Pulse Ox O2 Delivery O2 Flow Rate FiO2 01/27/18 12:21 93 Venturi Mask 15.0 01/27/18 07:56 132 156/69 01/27/18 07:00 99.0 20 99.0 Intake and Output 01/27/18 07:00 Intake Total 1162 ml Output Total 1275 ml Balance -113 ml Intake Oral 800 ml IV Total 362 ml Output Urine Total 1275 ml Vitals Signs Vitals VS - Last 72 Hours, by Label Date Time Temp Pulse Resp B/P (MAP) Pulse Ox O2 Delivery O2 Flow Rate FiO2 01/27/18 12:21 93 Venturi Mask 15.0 01/27/18 07:56 132 156/69 01/27/18 07:56 132 156/69 01/27/18 07:55 132 156/69 01/27/18 07:46 Venturi Mask 15.0 01/27/18 07:16 89 Venturi Mask 15.0 01/27/18 07:00 99.0 135 20 156/69 (98) 90 Venturi Mask 15.0 99.0 01/27/18 06:18 122 18 149/65 (93) 92 Venturi Mask 15.0 01/27/18 05:07 122 18 145/65 (91) 92 Venturi Mask 15.0 01/27/18 04:10 99.3 131 18 147/73 (97) 94 Venturi Mask 15.0 99.3 01/27/18 03:37 89 Venturi Mask 15.0 10/28/18 03:07 99.3 114 18 138/61 (86) 92 Venturi Mask 15.0 99.3 01/27/18 02:07 114 18 119/59 (79) 93 Venturi Mask 15.0 01/27/18 01:07 116 18 145/65 (91) 93 Venturi Mask 15.0 01/27/18 00:07 128 18 158/70 (99) 93 Venturi Mask 15.0 01/26/18 23:07 100.7 125 18 144/71 (95) 95 Venturi Mask 15.0 100.7 01/26/18 22:35 18 93 Venturi Mask 15.0 01/26/18 22:05 18 93 Venturi Mask 15.0 01/26/18 21:07 110 18 148/63 (91) 93 Venturi Mask 15.0 01/26/18 21:00 110 148/63 01/26/18 20:07 110 18 150/63 (92) 95 Venturi Mask 15.0 01/26/18 20:00 Venturi Mask 15.0 01/26/18 19:07 101.0 112 18 140/73 (95) 96 Venturi Mask 15.0 101.0 01/26/18 18:45 91 Venturi Mask 15.0 01/26/18 17:07 100.4 154 18 168/68 (101) 96 Venturi Mask 100.4 01/26/18 16:44 149 164/69 01/26/18 15:52 101.8 133 18 156/82 (106) 96 Venturi Mask 101.8 01/26/18 14:52 133 18 170/76 (107) 96 Venturi Mask 01/26/18 13:52 141 18 166/76 (106) 92 Venturi Mask 01/26/18 13:22 150 18 193/95 (127) 90 Venturi Mask 01/26/18 13:07 141 18 199/90 (126) 92 Venturi Mask 01/26/18 11:00 98.8 132 18 168/68 (101) 92 Room Air 98.8 01/26/18 10:40 94 Venturi Mask 15.0 01/26/18 07:53 Venturi Mask 15.0 Laboratory Laboratory Laboratory Tests Test 01/26/18 17:14 01/26/18 17:20 01/26/18 20:27 01/27/18 07:55 Glucose (Fingerstick) 231 mg/dL (70-99) 230 mg/dL (70-99) 307 mg/dL (70-99) Lactic Acid Level 0.7 mmol/L (0.4-2.0) Test 01/27/18 09:25 White Blood Count 13.0 x10^3/uL (4.0-11.0) Red Blood Count 2.77 x10^6/uL (4.30-5.70) Hemoglobin 8.5 g/dL (13.0-17.5) Hematocrit 24.6 % (39.0-53.0) Mean Corpuscular Volume 89 fL (79-100) Mean Corpuscular Hemoglobin 31 pg (25-35) Mean Corpuscular Hemoglobin Concent 35 g/dL (31-37) Red Cell Distribution Width 13.1 % (11.5-14.5) Platelet Count 230 x10^3/uL (140-400) Neutrophils (%) (Auto) 85 % (31-73) Lymphocytes (%) (Auto) 3 % (24-48) Monocytes (%) (Auto) 12 % (0-9) Eosinophils (%) (Auto) 0 % (0-3) Basophils (%) (Auto) 0 % (0-3) Neutrophils # (Auto) 10.9 x10^3uL (1.8-7.7) Lymphocytes # (Auto) 0.4 x10^3/uL (1.0-4.8) Monocytes # (Auto) 1.5 x10^3/uL (0.0-1.1) Eosinophils # (Auto) 0.0 x10^3/uL (0.0-0.7) Basophils # (Auto) 0.1 x10^3/uL (0.0-0.2) Sodium Level 137 mmol/L (136-145) Potassium Level 3.8 mmol/L (3.5-5.1) Chloride Level 103 mmol/L (98-107) Carbon Dioxide Level 20 mmol/L (21-32) Anion Gap 14 (6-14) Blood Urea Nitrogen 32 mg/dL (8-26) Creatinine 2.9 mg/dL (0.7-1.3) Estimated GFR (Cockcroft-Gault) 23.1 Glucose Level 299 mg/dL (70-99) Calcium Level 8.5 mg/dL (8.5-10.1) Mycoplasma Serology (LAB) Negative (NEGATIVE) Medication Medications Current Medications Linezolid/Dextrose 300 ml @ 300 mls/hr Q12HR IV Last administered on at 10:07; Start 01/27/18 at 10:00 Comment Review of Relevant I have reviewed the following items nadiya (where applicable) has been applied. KELSEY DUNCAN MD Jan 27, 2018 12:51
--- NOTE | 2018-01-27 12:58 | PDOC ---
SUBJECTIVE ROS Resp distress again this am,was on Bipap Now on venti mask. Pulm following On IV Lasix as per Pulm . Bladder scan ore-void revealed 400+ Urine with PVR of 200 OBJECTIVE Vital Signs Vital Signs Date Time Temp Pulse Resp B/P (MAP) Pulse Ox O2 Delivery O2 Flow Rate FiO2 01/27/18 12:21 93 Venturi Mask 15.0 01/27/18 07:56 132 156/69 01/27/18 07:00 99.0 20 99.0 I & 0 Intake and Output 01/27/18 07:00 Intake Total 1162 ml Output Total 1275 ml Balance -113 ml Intake Oral 800 ml IV Total 362 ml Output Urine Total 1275 ml PHYSICAL EXAM Physical Exam Gen-Mild distress HEENT: OM moist, On vent Mask Neck No JVD LUNGS: upper rhonchi) Heart: S1S2, RRR Abdomen: Soft N/T, No graft tenderness Extremities: (bilateral BKA Neurology: alert, oriented, follow commands - No Whitley DIAGNOSIS/ASSESSMENT Assessment & Plan JAMAL with creat at 2.3- Etiology Dehydration sec to N/V Worsening renal function to 2.9 - likely due to Lasix IV , R/o UTI , CRAWLEY May need Whitley, Check Renal US with Duplex E-Lytes stable, Monitor Hx of Renal Tx 2007 - Continue Immunosuppression Prograf level pending CKD STAGE 3 - Baseline Creat 1.5 Used to go to [facility] seen Renal as OP for many years as no insurance He was scheduled to see Dr. Nguyen at [facility] in past but was Hospitalized Nausea/Vomiting- improved S/P EGD with esophagitis with possible gastroparesis. Per GI Ac Resp failure - this am Pulm on board- Recd IV Lasix, On venti mask CxR not reported as Congestion but ?Pneumonia+ DM II HTN- Better Cardiology managing Anemia- ?Hgb dropping Admission Hgb may be high due to hemoconc Defer to primary Discussed with Pt and RN at bedside Ct scan abdomen 01/24 without Contrast 1. Severely atrophic and scarred bilateral kidneys. 2. Atrophic and scarred renal transplant in the right iliac fossa. 3. Mild perinephric edema related to a left iliac fossa renal transplant. 4. Borderline prostatic enlargement with distention of the urinary bladder. 5. Gastric distention with fluid. 6. Left basilar pulmonary infiltrates suggesting pneumonia. COMMENT/RELEVANT DATA Meds Current Medications Medications (Trade) Dose Ordered Sig/Penelope Start Time Stop Time Status Last Admin Dose Admin Acetaminophen (Tylenol) 650 mg PRN Q6HRS PRN 01/24/18 03:15 01/26/18 23:57 650 MG Amlodipine Besylate (Norvasc) 5 mg DAILY 01/24/18 11:30 01/27/18 07:56 5 MG Carvedilol (Coreg) 25 mg BIDWMEALS 01/24/18 17:00 01/27/18 07:55 25 MG Clonidine HCl (Catapres Tts-3) 1 patch WEEKLY 01/25/18 13:00 01/25/18 14:02 1 PATCH Clonidine HCl (Catapres) 0.2 mg BID 01/24/18 11:30 01/27/18 07:56 0.2 MG Clopidogrel Bisulfate (Plavix) 75 mg DAILY 01/24/18 11:30 01/27/18 07:55 75 MG Dextrose (Dextrose 50%-Water Syringe) 12.5 gm PRN Q15MIN PRN 01/23/18 23:00 Diphenhydramine HCl (Benadryl) 25 mg 1X ONCE 01/23/18 19:15 01/23/18 19:17 DC 01/23/18 19:25 25 MG Fentanyl Citrate (Fentanyl 2ml Vial) 50 mcg PRN Q3HRS PRN 01/25/18 09:15 01/26/18 22:05 50 MCG Furosemide (Lasix) 40 mg DAILY 01/26/18 10:30 01/27/18 07:54 40 MG Gabapentin (Neurontin) 100 mg TID 01/24/18 16:00 01/27/18 12:34 100 MG Insulin Glargine (Lantus) 4 units BID 01/24/18 11:30 01/27/18 07:58 4 UNITS Insulin Human Lispro (HumaLOG) 10 units 1X ONCE 01/24/18 05:00 01/24/18 05:02 DC 01/24/18 05:09 10 UNITS Insulin Human Regular (HumuLIN R VIAL) 5 unit 1X ONCE 01/23/18 19:45 01/23/18 19:46 DC 01/23/18 19:55 5 UNIT Labetalol HCl (Normodyne Iv Push) 20 mg PRN Q4HRS PRN 01/25/18 13:00 01/25/18 14:05 20 MG Levalbuterol HCl (Xopenex) 1.25 mg PRN Q6HRS PRN 01/26/18 08:45 01/27/18 12:19 1.25 MG Levofloxacin/ Dextrose 100 ml @ 100 mls/hr Q24H 01/26/18 08:30 01/26/18 09:32 DC Lidocaine HCl (Xylocaine-Mpf 1% 2ml Vial) 2 ml STK-MED ONCE 01/25/18 15:07 01/25/18 15:08 DC Linezolid/Dextrose 300 ml @ 300 mls/hr Q12HR 01/27/18 10:00 01/27/18 10:07 300 MLS/HR Magnesium Sulfate/ Dextrose 100 ml @ 100 mls/hr 1X ONCE 01/24/18 09:15 01/24/18 10:14 DC 01/24/18 12:01 100 MLS/HR Metoclopramide HCl (Reglan Vial) 5 mg Q6HRS 01/25/18 18:00 01/27/18 12:30 5 MG Metoprolol Tartrate (Lopressor Vial) 7.5 mg Q6HRS 01/25/18 18:00 01/25/18 18:00 DC Morphine Sulfate (Morphine Sulfate) 2 mg PRN Q2HR PRN 01/24/18 11:00 Mycophenolate Mofetil (Cellcept) 250 mg BID 01/24/18 12:00 01/24/18 15:58 DC 01/24/18 12:01 250 MG Mycophenolate Mofetil 250 mg/ Dextrose 42 ml @ 21 mls/hr Q12H 01/24/18 21:00 01/27/18 09:33 21 MLS/HR Nicardipine HCl 50 mg/Sodium Chloride 270 ml @ 32.4 mls/hr CONT PRN 01/24/18 03:00 01/27/18 05:03 27 MLS/HR Non-Formulary Medication (Hydrochlorothiazide (Hydrochlorothiazide Capsule )) 10 mg BID 01/24/18 21:00 01/24/18 21:00 DC Ondansetron HCl (Zofran) 4 mg PRN Q6HRS PRN 01/24/18 03:15 01/26/18 22:04 4 MG Oxycodone/ Acetaminophen (Percocet 5/325) 1 tab PRN Q4HRS PRN 01/24/18 01:00 Pantoprazole Sodium (PROTONIX VIAL for IV PUSH) 40 mg BIDAC 01/25/18 16:30 01/27/18 07:54 40 MG Pantoprazole Sodium (Protonix) 40 mg DAILYAC 01/24/18 11:30 01/24/18 12:01 DC Piperacillin Sod/ Tazobactam Sod (Zosyn Per Pharmacy) 1 each PRN DAILY PRN 01/26/18 10:00 Piperacillin Sod/ Tazobactam Sod 3.375 gm/Sodium Chloride 50 ml @ 100 mls/hr Q6HRS 01/26/18 11:00 01/27/18 12:30 100 MLS/HR Prochlorperazine Edisylate (Compazine) 10 mg PRN Q6HRS PRN 01/24/18 03:15 01/27/18 06:31 10 MG Propofol 20 ml @ As Directed STK-MED ONCE 01/25/18 15:07 01/25/18 15:08 DC Ringer's Solution 1,000 ml @ 30 mls/hr Q24H 01/25/18 15:15 Cancel Sodium Chloride 1,000 ml @ 0 mls/hr Q0M 01/25/18 15:15 01/25/18 15:43 DC 01/25/18 15:13 50 MLS/HR Sodium Chloride (Saline Mist Nasal) 1 bryan PRN Q1HR PRN 01/24/18 17:30 Tacrolimus (Prograf) 0.5 mg QHS 01/24/18 21:00 01/26/18 21:33 0.5 MG Trimethobenzamide HCl (Tigan Im) 200 mg PRN Q6HRS PRN 01/24/18 11:00 Lab Laboratory Tests Test 01/26/18 17:14 01/26/18 17:20 01/26/18 20:27 01/27/18 07:55 Glucose (Fingerstick) 231 mg/dL (70-99) 230 mg/dL (70-99) 307 mg/dL (70-99) Lactic Acid Level 0.7 mmol/L (0.4-2.0) Test 01/27/18 09:25 White Blood Count 13.0 x10^3/uL (4.0-11.0) Red Blood Count 2.77 x10^6/uL (4.30-5.70) Hemoglobin 8.5 g/dL (13.0-17.5) Hematocrit 24.6 % (39.0-53.0) Mean Corpuscular Volume 89 fL (79-100) Mean Corpuscular Hemoglobin 31 pg (25-35) Mean Corpuscular Hemoglobin Concent 35 g/dL (31-37) Red Cell Distribution Width 13.1 % (11.5-14.5) Platelet Count 230 x10^3/uL (140-400) Neutrophils (%) (Auto) 85 % (31-73) Lymphocytes (%) (Auto) 3 % (24-48) Monocytes (%) (Auto) 12 % (0-9) Eosinophils (%) (Auto) 0 % (0-3) Basophils (%) (Auto) 0 % (0-3) Neutrophils # (Auto) 10.9 x10^3uL (1.8-7.7) Lymphocytes # (Auto) 0.4 x10^3/uL (1.0-4.8) Monocytes # (Auto) 1.5 x10^3/uL (0.0-1.1) Eosinophils # (Auto) 0.0 x10^3/uL (0.0-0.7) Basophils # (Auto) 0.1 x10^3/uL (0.0-0.2) Sodium Level 137 mmol/L (136-145) Potassium Level 3.8 mmol/L (3.5-5.1) Chloride Level 103 mmol/L (98-107) Carbon Dioxide Level 20 mmol/L (21-32) Anion Gap 14 (6-14) Blood Urea Nitrogen 32 mg/dL (8-26) Creatinine 2.9 mg/dL (0.7-1.3) Estimated GFR (Cockcroft-Gault) 23.1 Glucose Level 299 mg/dL (70-99) Calcium Level 8.5 mg/dL (8.5-10.1) Mycoplasma Serology (LAB) Negative (NEGATIVE) Results All relevant outside records, renal labs, imaging studies, telemetry/EKG's were reviewed . Impression: Retrocardiac left basilar consolidation spec. Vascular congestion and small left effusion. BASSEM BUSBY MD Jan 27, 2018 12:58
--- NOTE | 2018-01-27 14:15 | PDOC ---
PROGRESS NOTES Chief Complaint Chief Complaint Uncontrolled HTN JAMAL due to dehydration Cluster headache H/o renal transplant: 2007 H/o DM1/HLP: per PCP H/o CAD History of Present Illness History of Present Illness Pt seen and examined. Pt sitting upright in bedside chair on venti-mask. OSMEL RN. Pt looks improved from yesterday. Pt says he is feeling and breathing better than yesterday. He was able to eat some jello and sherbert. He has had some difficulty urinating per RN Vitals Vitals Vital Signs Date Time Temp Pulse Resp B/P (MAP) Pulse Ox O2 Delivery O2 Flow Rate FiO2 01/27/18 12:21 93 Venturi Mask 15.0 01/27/18 07:56 132 156/69 01/27/18 07:00 99.0 20 99.0 Physical Exam General: Alert, Oriented X3, Cooperative, mild distress Heart: Regular rate, Normal S1, Normal S2 Lungs: Crackles, Other (coarse lung sounds b/l with decreased inspiratory effort) Abdomen: Normal bowel sounds, Soft Extremities: No clubbing, No cyanosis, Other (bilateral BKAs) Skin: No rashes, No breakdown, No significant lesion Labs LABS Laboratory Tests Test 01/26/18 17:14 01/26/18 17:20 01/26/18 20:27 01/27/18 07:55 Glucose (Fingerstick) 231 mg/dL (70-99) 230 mg/dL (70-99) 307 mg/dL (70-99) Lactic Acid Level 0.7 mmol/L (0.4-2.0) Test 01/27/18 09:25 01/27/18 12:13 White Blood Count 13.0 x10^3/uL (4.0-11.0) Red Blood Count 2.77 x10^6/uL (4.30-5.70) Hemoglobin 8.5 g/dL (13.0-17.5) Hematocrit 24.6 % (39.0-53.0) Mean Corpuscular Volume 89 fL (79-100) Mean Corpuscular Hemoglobin 31 pg (25-35) Mean Corpuscular Hemoglobin Concent 35 g/dL (31-37) Red Cell Distribution Width 13.1 % (11.5-14.5) Platelet Count 230 x10^3/uL (140-400) Neutrophils (%) (Auto) 85 % (31-73) Lymphocytes (%) (Auto) 3 % (24-48) Monocytes (%) (Auto) 12 % (0-9) Eosinophils (%) (Auto) 0 % (0-3) Basophils (%) (Auto) 0 % (0-3) Neutrophils # (Auto) 10.9 x10^3uL (1.8-7.7) Lymphocytes # (Auto) 0.4 x10^3/uL (1.0-4.8) Monocytes # (Auto) 1.5 x10^3/uL (0.0-1.1) Eosinophils # (Auto) 0.0 x10^3/uL (0.0-0.7) Basophils # (Auto) 0.1 x10^3/uL (0.0-0.2) Sodium Level 137 mmol/L (136-145) Potassium Level 3.8 mmol/L (3.5-5.1) Chloride Level 103 mmol/L (98-107) Carbon Dioxide Level 20 mmol/L (21-32) Anion Gap 14 (6-14) Blood Urea Nitrogen 32 mg/dL (8-26) Creatinine 2.9 mg/dL (0.7-1.3) Estimated GFR (Cockcroft-Gault) 23.1 Glucose Level 299 mg/dL (70-99) Calcium Level 8.5 mg/dL (8.5-10.1) Mycoplasma Serology (LAB) Negative (NEGATIVE) Glucose (Fingerstick) 325 mg/dL (70-99) Review of Systems Review of Systems Pt denies CP, N/V. He admits to some SOA and mild MARTÍNEZ. Assessment and Plan Assessmemt and Plan Problems Medical Problems: (1) Hypertensive urgency Status: Acute (2) Intractable nausea and vomiting Status: Acute (3) Migraine headache Status: Acute Assessment: Uncontrolled HTN JAMAL due to dehydration Cluster headache H/o renal transplant: 2007 H/o DM1/HLP: per PCP H/o CAD Plan: Cardiac monitoring Monitor labs Home meds IV abx PT/OT Venti-mask Awaiting sputum cultures and strep, legionella, mycoplasma Ags Appreciate subspecialist input Advance diet as tolerated DVT ppx Comment Review of Relevant I have reviewed the following items nadiya (where applicable) has been applied. Labs Laboratory Tests Test 01/25/18 17:10 01/25/18 21:25 01/25/18 21:30 01/26/18 00:50 Glucose (Fingerstick) 296 mg/dL (70-99) 186 mg/dL (70-99) 181 mg/dL (70-99) Tacrolimus (Prograf) Level See separate report Test 01/26/18 04:03 01/26/18 08:00 01/26/18 08:20 01/26/18 08:35 Glucose (Fingerstick) 161 mg/dL (70-99) 182 mg/dL (70-99) White Blood Count 10.6 x10^3/uL (4.0-11.0) Red Blood Count 2.84 x10^6/uL (4.30-5.70) Hemoglobin 8.9 g/dL (13.0-17.5) Hematocrit 25.2 % (39.0-53.0) Mean Corpuscular Volume 89 fL (79-100) Mean Corpuscular Hemoglobin 31 pg (25-35) Mean Corpuscular Hemoglobin Concent 35 g/dL (31-37) Red Cell Distribution Width 13.4 % (11.5-14.5) Platelet Count 237 x10^3/uL (140-400) Neutrophils (%) (Auto) 69 % (31-73) Lymphocytes (%) (Auto) 12 % (24-48) Monocytes (%) (Auto) 19 % (0-9) Eosinophils (%) (Auto) 0 % (0-3) Basophils (%) (Auto) 0 % (0-3) Neutrophils # (Auto) 7.3 x10^3uL (1.8-7.7) Lymphocytes # (Auto) 1.2 x10^3/uL (1.0-4.8) Monocytes # (Auto) 2.0 x10^3/uL (0.0-1.1) Eosinophils # (Auto) 0.0 x10^3/uL (0.0-0.7) Basophils # (Auto) 0.0 x10^3/uL (0.0-0.2) Sodium Level 142 mmol/L (136-145) Potassium Level 4.2 mmol/L (3.5-5.1) Chloride Level 108 mmol/L (98-107) Carbon Dioxide Level 23 mmol/L (21-32) Anion Gap 11 (6-14) Blood Urea Nitrogen 29 mg/dL (8-26) Creatinine 2.1 mg/dL (0.7-1.3) Estimated GFR (Cockcroft-Gault) 33.6 Glucose Level 185 mg/dL (70-99) Calcium Level 8.7 mg/dL (8.5-10.1) O2 Saturation 87 % (92-99) Arterial Blood pH 7.34 (7.35-7.45) Arterial Blood pCO2 at Patient Temp 36 mmHg (35-46) Arterial Blood pO2 at Patient Temp 57 mmHg (75-108) Arterial Blood HCO3 19 mmol/L (21-28) Arterial Blood Base Excess -6 mmol/L (-3-3) FiO2 40 Test 01/26/18 09:12 01/26/18 12:13 01/26/18 17:14 01/26/18 17:20 Glucose (Fingerstick) 180 mg/dL (70-99) 224 mg/dL (70-99) 231 mg/dL (70-99) Lactic Acid Level 0.7 mmol/L (0.4-2.0) Test 01/26/18 20:27 01/27/18 07:55 01/27/18 09:25 01/27/18 12:13 Glucose (Fingerstick) 230 mg/dL (70-99) 307 mg/dL (70-99) 325 mg/dL (70-99) White Blood Count 13.0 x10^3/uL (4.0-11.0) Red Blood Count 2.77 x10^6/uL (4.30-5.70) Hemoglobin 8.5 g/dL (13.0-17.5) Hematocrit 24.6 % (39.0-53.0) Mean Corpuscular Volume 89 fL (79-100) Mean Corpuscular Hemoglobin 31 pg (25-35) Mean Corpuscular Hemoglobin Concent 35 g/dL (31-37) Red Cell Distribution Width 13.1 % (11.5-14.5) Platelet Count 230 x10^3/uL (140-400) Neutrophils (%) (Auto) 85 % (31-73) Lymphocytes (%) (Auto) 3 % (24-48) Monocytes (%) (Auto) 12 % (0-9) Eosinophils (%) (Auto) 0 % (0-3) Basophils (%) (Auto) 0 % (0-3) Neutrophils # (Auto) 10.9 x10^3uL (1.8-7.7) Lymphocytes # (Auto) 0.4 x10^3/uL (1.0-4.8) Monocytes # (Auto) 1.5 x10^3/uL (0.0-1.1) Eosinophils # (Auto) 0.0 x10^3/uL (0.0-0.7) Basophils # (Auto) 0.1 x10^3/uL (0.0-0.2) Sodium Level 137 mmol/L (136-145) Potassium Level 3.8 mmol/L (3.5-5.1) Chloride Level 103 mmol/L (98-107) Carbon Dioxide Level 20 mmol/L (21-32) Anion Gap 14 (6-14) Blood Urea Nitrogen 32 mg/dL (8-26) Creatinine 2.9 mg/dL (0.7-1.3) Estimated GFR (Cockcroft-Gault) 23.1 Glucose Level 299 mg/dL (70-99) Calcium Level 8.5 mg/dL (8.5-10.1) Mycoplasma Serology (LAB) Negative (NEGATIVE) Laboratory Tests Test 01/26/18 17:14 01/26/18 17:20 01/26/18 20:27 01/27/18 07:55 Glucose (Fingerstick) 231 mg/dL (70-99) 230 mg/dL (70-99) 307 mg/dL (70-99) Lactic Acid Level 0.7 mmol/L (0.4-2.0) Test 01/27/18 09:25 01/27/18 12:13 White Blood Count 13.0 x10^3/uL (4.0-11.0) Red Blood Count 2.77 x10^6/uL (4.30-5.70) Hemoglobin 8.5 g/dL (13.0-17.5) Hematocrit 24.6 % (39.0-53.0) Mean Corpuscular Volume 89 fL (79-100) Mean Corpuscular Hemoglobin 31 pg (25-35) Mean Corpuscular Hemoglobin Concent 35 g/dL (31-37) Red Cell Distribution Width 13.1 % (11.5-14.5) Platelet Count 230 x10^3/uL (140-400) Neutrophils (%) (Auto) 85 % (31-73) Lymphocytes (%) (Auto) 3 % (24-48) Monocytes (%) (Auto) 12 % (0-9) Eosinophils (%) (Auto) 0 % (0-3) Basophils (%) (Auto) 0 % (0-3) Neutrophils # (Auto) 10.9 x10^3uL (1.8-7.7) Lymphocytes # (Auto) 0.4 x10^3/uL (1.0-4.8) Monocytes # (Auto) 1.5 x10^3/uL (0.0-1.1) Eosinophils # (Auto) 0.0 x10^3/uL (0.0-0.7) Basophils # (Auto) 0.1 x10^3/uL (0.0-0.2) Sodium Level 137 mmol/L (136-145) Potassium Level 3.8 mmol/L (3.5-5.1) Chloride Level 103 mmol/L (98-107) Carbon Dioxide Level 20 mmol/L (21-32) Anion Gap 14 (6-14) Blood Urea Nitrogen 32 mg/dL (8-26) Creatinine 2.9 mg/dL (0.7-1.3) Estimated GFR (Cockcroft-Gault) 23.1 Glucose Level 299 mg/dL (70-99) Calcium Level 8.5 mg/dL (8.5-10.1) Mycoplasma Serology (LAB) Negative (NEGATIVE) Glucose (Fingerstick) 325 mg/dL (70-99) Medications Current Medications Sodium Chloride 1,000 ml @ 1,000 mls/hr Q1H IV Last administered on at 17:54; Start 01/23/18 at 17:21; Stop 01/23/18 at 18:20; Status DC Prochlorperazine Edisylate (Compazine) 10 mg 1X ONCE IV Last administered on 01/23/18at 17:55; Start 01/23/18 at 17:30; Stop 01/23/18 at 17:31; Status DC Diphenhydramine HCl (Benadryl) 25 mg 1X ONCE IVP Last administered on at 17:57; Start 01/23/18 at 17:30; Stop 01/23/18 at 17:31; Status DC Metoclopramide HCl (Reglan Vial) 10 mg 1X ONCE IV Last administered on at 19:24; Start 01/23/18 at 19:15; Stop 01/23/18 at 19:17; Status DC Diphenhydramine HCl (Benadryl) 25 mg 1X ONCE IVP Last administered on at 19:25; Start 01/23/18 at 19:15; Stop 01/23/18 at 19:17; Status DC Metoprolol Tartrate (Lopressor Vial) 5 mg 1X ONCE IVP Last administered on at 19:55; Start 01/23/18 at 19:45; Stop 01/23/18 at 19:46; Status DC Insulin Human Regular (HumuLIN R VIAL) 5 unit 1X ONCE IV Last administered on 01/23/18at 19:55; Start 01/23/18 at 19:45; Stop 01/23/18 at 19:46; Status DC Labetalol HCl (Normodyne Iv Push) 10 mg 1X ONCE IVP ; Start 01/23/18 at 20:30 ; Stop 01/23/18 at 20:31; Status DC Labetalol HCl (Normodyne Iv Push) 10 mg 1X ONCE IVP Last administered on 01/23at 22:29; Start 01/23/18 at 22:00; Stop 01/23/18 at 22:04; Status DC Ondansetron HCl (Zofran) 4 mg PRN Q8HRS PRN IV NAUSEA/VOMITING Last administered on 01/24/18at 00:16; Start 01/23/18 at 22:45; Stop 01/24/18 at 03 :05; Status DC Fentanyl Citrate (Fentanyl 2ml Vial) 50 mcg PRN Q2HR PRN IV PAIN Last administered on 01/24/18at 19:48; Start 01/23/18 at 22:45; Stop 01/24/18 at 22 :44; Status DC Sodium Chloride 1,000 ml @ 100 mls/hr Q10H IV Last administered on 01/24/18at 19:56; Start 01/23/18 at 22:37; Stop 01/24/18 at 22:36; Status DC Labetalol HCl (Normodyne Iv Push) 10 mg PRN Q30MIN PRN IVP SBP>180 Last administered on 01/24/18at 00:07; Start 01/23/18 at 22:45; Stop 01/24/18 at 00 :49; Status DC Insulin Human Lispro (HumaLOG) 0-5 UNITS TIDWMEALS SQ Last administered on at 12:33; Start 01/24/18 at 08:00 Dextrose (Dextrose 50%-Water Syringe) 12.5 gm PRN Q15MIN PRN IV SEE COMMENTS; Start 01/23/18 at 23:00 Labetalol HCl (Normodyne Iv Push) 20 mg PRN Q2HR PRN IVP HYPERTENSION, SEE COMMENTS Last administered on 01/24/18at 02:12; Start 01/24/18 at 00:45; Stop 01/25/18 at 14:21; Status DC Carvedilol (Coreg) 6.25 mg 1X ONCE PO ; Start 01/24/18 at 00:45; Stop at 00:49; Status DC Amlodipine Besylate (Norvasc) 5 mg 1X ONCE PO Last administered on 01/24/18at 01:00; Start 01/24/18 at 00:45; Stop 01/24/18 at 00:49; Status DC Oxycodone/ Acetaminophen (Percocet 5/325) 1 tab PRN Q4HRS PRN PO PAIN; Start 01/24/18 at 01:00 Carvedilol (Coreg) 12.5 mg 1X ONCE PO Last administered on 01/24/18at 01:05; Start 01/24/18 at 01:00; Stop 01/24/18 at 01:04; Status DC Nicardipine HCl 50 mg/Sodium Chloride 270 ml @ 32.4 mls/hr CONT PRN IV SEE I/ O RECORD Last administered on 01/27/18at 05:03; Start 01/24/18 at 03:00 Acetaminophen (Tylenol) 650 mg PRN Q6HRS PRN PEG MILD PAIN / TEMP; Start 01/24 at 03:15; Status Cancel Ondansetron HCl (Zofran) 4 mg PRN Q6HRS PRN IV NAUSEA/VOMITING, 1ST CHOICE Last administered on 01/26/18at 22:04; Start 01/24/18 at 03:15 Metoclopramide HCl (Reglan Vial) 5 mg PRN Q6HRS PRN IV NAUSEA/VOMITING, 3RD CHOICE Last administered on 01/25/18at 11:53; Start 01/24/18 at 03:15; Stop at 15:35; Status DC Prochlorperazine Edisylate (Compazine) 10 mg PRN Q6HRS PRN IV NAUSEA/VOMITING, 2ND CHOICE Last administered on 01/27/18at 06:31; Start 01/24/18 at 03:15 Pantoprazole Sodium (Protonix) 40 mg 1X ONCE PO Last administered on at 03:13; Start 01/24/18 at 03:30; Stop 01/24/18 at 03:31; Status DC Acetaminophen (Tylenol) 650 mg PRN Q6HRS PRN PO MIGRAINE HEADACHE Last administered on 01/26/18at 23:57; Start 01/24/18 at 03:15 Insulin Human Lispro (HumaLOG) 10 units 1X ONCE SQ Last administered on at 05:09; Start 01/24/18 at 05:00; Stop 01/24/18 at 05:02; Status DC Magnesium Sulfate/ Dextrose 100 ml @ 100 mls/hr 1X ONCE IV Last administered on 01/24/18at 12:01; Start 01/24/18 at 09:15; Stop 01/24/18 at 10:14; Status DC Metoprolol Tartrate (Lopressor Vial) 5 mg Q6HRS IVP Last administered on at 11:08; Start 01/24/18 at 11:00; Stop 01/25/18 at 11:41; Status DC Trimethobenzamide HCl (Tigan Im) 200 mg PRN Q6HRS PRN IM NAUSEA/VOMITING; Start 01/24/18 at 11:00 Morphine Sulfate (Morphine Sulfate) 2 mg PRN Q2HR PRN IV MODERATE PAIN; Start 01/24/18 at 11:00 Amlodipine Besylate (Norvasc) 5 mg DAILY PO Last administered on 01/27/18at 07: 56; Start 01/24/18 at 11:30 Clonidine HCl (Catapres) 0.2 mg BID PO Last administered on 01/27/18at 07:56; Start 01/24/18 at 11:30 Clopidogrel Bisulfate (Plavix) 75 mg DAILY PO Last administered on 01/27/18at 07:55; Start 01/24/18 at 11:30 Insulin Glargine (Lantus) 4 units DAILYWBKFT SQ ; Start 01/24/18 at 11:30; Stop 01/24/18 at 11:30; Status DC Insulin Glargine (Lantus) 4 units QHS SQ ; Start 01/24/18 at 21:00; Status UNV Carvedilol (Coreg) 25 mg BIDWMEALS PO Last administered on 01/27/18at 07:55; Start 01/24/18 at 17:00 Non-Formulary Medication (Hydrochlorothiazide (Hydrochlorothiazide Capsule ) ) 10 mg BID PO ; Start 01/24/18 at 21:00; Stop 01/24/18 at 21:00; Status DC Mycophenolate Mofetil (Cellcept) 250 mg BID PO Last administered on 01/24/18at 12:01; Start 01/24/18 at 12:00; Stop 01/24/18 at 15:58; Status DC Pantoprazole Sodium (Protonix) 40 mg DAILYAC PO ; Start 01/24/18 at 11:30; Stop 01/24/18 at 12:01; Status DC Tacrolimus (Prograf) 2 mg BID PO Last administered on 01/24/18at 12:02; Start 01/24/18 at 12:00; Stop 01/24/18 at 13:07; Status DC Insulin Glargine (Lantus) 4 units BID SQ Last administered on 01/27/18at 07:58 ; Start 01/24/18 at 11:30 Pantoprazole Sodium (PROTONIX VIAL for IV PUSH) 40 mg DAILYAC IVP Last administered on 01/25/18at 09:34; Start 01/24/18 at 13:00; Stop 01/25/18 at 15 :35; Status DC Tacrolimus (Prograf) 4 mg DAILY PO ; Start 01/25/18 at 09:00; Stop 01/25/18 at 09:00; Status DC Tacrolimus (Prograf) 3 mg QHS PO ; Start 01/24/18 at 21:00; Stop 01/24/18 at 21:00; Status DC Tacrolimus (Prograf) 2 mg DAILY SL Last administered on 01/27/18at 07:59; Start 01/25/18 at 09:00 Tacrolimus (Prograf) 1 mg QHS SL Last administered on 01/26/18at 21:33; Start 01/24/18 at 21:00 Sodium Chloride (Saline Mist Nasal) 1 bryan PRN Q1HR PRN NS NASAL CONGESTION; Start 01/24/18 at 15:00; Stop 01/24/18 at 17:28; Status DC Gabapentin (Neurontin) 100 mg TID PO Last administered on 01/27/18at 12:34; Start 01/24/18 at 16:00 Mycophenolate Mofetil 250 mg/ Dextrose 42 ml @ 21 mls/hr Q12H IV Last administered on 01/27/18at 09:33; Start 01/24/18 at 21:00 Tacrolimus (Prograf) 0.5 mg QHS SL Last administered on 01/26/18at 21:33; Start 01/24/18 at 21:00 Sodium Chloride (Saline Mist Nasal) 1 bryan PRN Q1HR PRN NS NASAL CONGESTION; Start 01/24/18 at 17:30 Sodium Chloride 1,000 ml @ 75 mls/hr [id number] IV ; Start 01/25/18 at 07:30 Fentanyl Citrate (Fentanyl 2ml Vial) 50 mcg PRN Q3HRS PRN IV SEVERE PAIN Last administered on 01/26/18at 22:05; Start 01/25/18 at 09:15 Sodium Chloride 1,000 ml @ 75 mls/hr [id number] IV Last administered on at 09:35; Start 01/25/18 at 09:15 Metoprolol Tartrate (Lopressor Vial) 7.5 mg Q6HRS IVP ; Start 01/25/18 at 18:00 ; Stop 01/25/18 at 18:00; Status DC Clonidine HCl (Catapres Tts-3) 1 patch WEEKLY TD Last administered on at 14:02; Start 01/25/18 at 13:00 Labetalol HCl (Normodyne Iv Push) 20 mg PRN Q4HRS PRN IVP HYPERTENSION, SEE COMMENTS Last administered on 01/25/18at 14:05; Start 01/25/18 at 13:00 Ringer's Solution 1,000 ml @ 30 mls/hr Q24H IV ; Start 01/25/18 at 15:15; Status Cancel Propofol 20 ml @ As Directed STK-MED ONCE IV ; Start 01/25/18 at 15:07; Stop 01/25/18 at 15:08; Status DC Lidocaine HCl (Xylocaine-Mpf 1% 2ml Vial) 2 ml STK-MED ONCE .ROUTE ; Start at 15:07; Stop 01/25/18 at 15:08; Status DC Sodium Chloride 1,000 ml @ 0 mls/hr Q0M IV Last administered on 01/25/18at 15: 13; Start 01/25/18 at 15:15; Stop 01/25/18 at 15:43; Status DC Metoclopramide HCl (Reglan Vial) 5 mg Q6HRS IV Last administered on 01/27/18at 12:30; Start 01/25/18 at 18:00 Pantoprazole Sodium (PROTONIX VIAL for IV PUSH) 40 mg BIDAC IVP Last administered on 01/27/18at 07:54; Start 01/25/18 at 16:30 Levofloxacin/ Dextrose 100 ml @ 100 mls/hr Q24H IV ; Start 01/26/18 at 08:30; Stop 01/26/18 at 09:32; Status DC Levalbuterol HCl (Xopenex) 1.25 mg PRN Q6HRS PRN NEB SHORTNESS OF BREATH Last administered on 01/27/18at 12:19; Start 01/26/18 at 08:45 Piperacillin Sod/ Tazobactam Sod (Zosyn Per Pharmacy) 1 each PRN DAILY PRN MC SEE COMMENTS; Start 01/26/18 at 10:00 Furosemide (Lasix) 40 mg DAILY IVP Last administered on 01/27/18at 07:54; Start 01/26/18 at 10:30 Piperacillin Sod/ Tazobactam Sod 3.375 gm/Sodium Chloride 50 ml @ 100 mls/hr Q6HRS IV Last administered on 01/27/18at 12:30; Start 01/26/18 at 11:00 Linezolid/Dextrose 300 ml @ 300 mls/hr Q12HR IV Last administered on at 10:07; Start 01/27/18 at 10:00 Active Scripts Active Oxycodone-Acetaminophen 5-325 (Oxycodone Hcl/Acetaminophen) 1 Each Tablet 1 Tab PO PRN Q4HRS PRN Reported Prograf (Tacrolimus) 1 Mg Capsule 3 Cap PO QHS Prograf (Tacrolimus) 1 Mg Capsule 4 Cap PO DAILY Lantus Solostar (Insulin Glargine,Hum.rec.anlog) 100 Unit/1 Ml Insuln.pen 4 Unit SQ DAILYWBKFT Lantus Solostar (Insulin Glargine,Hum.rec.anlog) 100 Unit/1 Ml Insuln.pen 4 Unit SQ QHS Amlodipine Besylate 5 Mg Tablet 5 Mg PO DAILY Clonidine Hcl 0.2 Mg Tablet 1 Tab PO BID Clopidogrel (Clopidogrel Bisulfate) 75 Mg Tablet 1 Tab PO DAILY Cellcept (Mycophenolate Mofetil) 250 Mg Capsule 1 Cap PO BID Pantoprazole Sodium 20 Mg Tablet.dr 20 Mg PO DAILY Hydrochlorothiazide Capsule (Hydrochlorothiazide) 12.5 Mg Capsule 10 Mg PO BID Carvedilol 25 Mg Tablet 2 Tab PO DAILYBFRSUP Vitals/I & O Vital Sign - Last 24 Hours 01/26/18 01/26/18 01/26/18 01/26/18 14:52 15:52 16:44 17:07 Temp 101.8 100.4 101.8 100.4 Pulse 133 133 149 154 Resp 18 18 18 B/P (MAP) 170/76 (107) 156/82 (106) 164/69 168/68 (101) Pulse Ox 96 96 96 O2 Delivery Venturi Mask Venturi Mask Venturi Mask 01/26/18 01/26/18 01/26/18 01/26/18 18:45 19:07 20:00 20:07 Temp 101.0 101.0 Pulse 112 110 Resp 18 18 B/P (MAP) 140/73 (95) 150/63 (92) Pulse Ox 91 96 95 O2 Delivery Venturi Mask Venturi Mask Venturi Mask Venturi Mask O2 Flow Rate 15.0 15.0 15.0 15.0 01/26/18 01/26/18 01/26/18 01/26/18 21:00 21:07 22:05 22:35 Pulse 110 110 Resp 18 18 18 B/P (MAP) 148/63 148/63 (91) Pulse Ox 93 93 93 O2 Delivery Venturi Mask Venturi Mask Venturi Mask O2 Flow Rate 15.0 15.0 15.0 01/26/18 01/27/18 01/27/18 01/27/18 23:07 00:07 01:07 02:07 Temp 100.7 100.7 Pulse 125 128 116 114 Resp 18 18 18 18 B/P (MAP) 144/71 (95) 158/70 (99) 145/65 (91) 119/59 (79) Pulse Ox 95 93 93 93 O2 Delivery Venturi Mask Venturi Mask Venturi Mask Venturi Mask O2 Flow Rate 15.0 15.0 15.0 15.0 01/27/18 01/27/18 01/27/18 01/27/18 03:07 03:37 04:10 05:07 Temp 99.3 99.3 99.3 99.3 Pulse 114 131 122 Resp 18 18 18 B/P (MAP) 138/61 (86) 147/73 (97) 145/65 (91) Pulse Ox 92 89 94 92 O2 Delivery Venturi Mask Venturi Mask Venturi Mask Venturi Mask O2 Flow Rate 15.0 15.0 15.0 15.0 01/27/18 01/27/18 01/27/18 01/27/18 06:18 07:00 07:16 07:46 Temp 99.0 99.0 Pulse 122 135 Resp 18 20 B/P (MAP) 149/65 (93) 156/69 (98) Pulse Ox 92 90 89 O2 Delivery Venturi Mask Venturi Mask Venturi Mask Venturi Mask O2 Flow Rate 15.0 15.0 15.0 15.0 01/27/18 01/27/18 01/27/18 01/27/18 07:55 07:56 07:56 12:21 Pulse 132 132 132 B/P (MAP) 156/69 156/69 156/69 Pulse Ox 93 O2 Delivery Venturi Mask O2 Flow Rate 15.0 Intake and Output 01/26/18 01/26/18 01/27/18 15:00 23:00 07:00 Intake Total 500 ml 662 ml Output Total 700 ml 250 ml 325 ml Balance -700 ml 250 ml 337 ml SHIRA SHEPPARDL K III DO Jan 27, 2018 14:14
[2018-01-27 14:55] LABS: BILIRUBIN,URINE NEGATIVE (NEG); CLARITY,URINE CLEAR; COLOR,URINE YELLOW; NITRITE,URINE NEGATIVE (NEG); PROTEIN,URINE 100 mg/dL (NEG-TRACE); UROBILINOGEN,URINE 0.2 mg/dL (0.2 mg/dL)
[2018-01-27 15:28] LABS: AMORPHOUS SEDIMENT,UR PRESENT /HPF; HYALINE CASTS, URINE MODERATE /HPF; SQUAMOUS EPITHELIAL CELL,UR FEW /LPF
[2018-01-27 15:30] LABS: WBC,URINE >40 /HPF (0-4)
[2018-01-27 15:33] LABS: BACTERIA,URINE 0 /HPF (0-FEW); GRANULAR CASTS,URINE FEW /HPF; RBC,URINE 0 /HPF (0-2); WAXY CASTS,URINE OCCASIONAL /HPF
[2018-01-27] MEDS: ACETAMINOPHEN 325 MG TABLET. PO PRN (18:54)
[2018-01-27] MEDS: MYCOPHENOLATE MOFETIL 250 MG CAPSULE. PO SCH (21:00)
[2018-01-27] MEDS: TACROLIMUS 1 MG CAPSULE PO SCH (21:00)
--- NOTE | 2018-01-27 23:04 | CONS ---
DATE OF CONSULTATION: 01/27/2018 This is Óscar Villaseñor, nurse practitioner, dictating for Dr. Tasha Cordova, Infectious Disease. REFERRING PHYSICIAN: Dr. Gonzalez. REASON FOR CONSULTATION: Fever, status post kidney transplant in 2007. HISTORY OF PRESENT ILLNESS: This patient is a 52-year-old -[place] male, who was admitted on 01/23/2018 with uncontrolled hypertension and dehydration. The patient says he had developed nausea, vomiting and diarrhea that is now settled down. Since admission, he has developed shortness of air, hypoxia, fever and chills. Yesterday, he developed shortness of air and hypoxia, requiring supplemental oxygen. He also had some fevers and chills. Chest x-ray showed bilateral pulmonary infiltrates compatible with congestive heart failure and left lower lobe pneumonia with effusion. He was dosed with Zosyn. The patient is now on a Ventimask and is satting around 88%. He feels a bit short of air and has a cough with phlegm production. He denies chest pain. He had been complaining of headaches, though not as often nor intense compared to a few days ago. He has been hospitalized at [facility] for workup. He denies dizziness or visual changes. He denies a sore throat. Denies muscle aches or joint pains. He has [id number] amputations bilaterally. PAST MEDICAL HISTORY: Peripheral vascular disease; coronary artery disease; end-stage renal disease, status post failed renal transplant in 2003 and redone in 2007; diabetes type 1 from 14 months of age. Hypertension, osteoarthritis, hyperlipidemia, gastroesophageal reflux disease and left prosthetic eye. PAST SURGICAL HISTORY: [id number] amputation bilaterally. Failed renal transplant in 2003 and redone in 2007. FAMILY HISTORY: Positive for diabetes mellitus and heart disease. SOCIAL HISTORY: The patient lives at home with his mother. He is employed. He denies tobacco, drugs or alcohol use. He is ambulatory. He wears a leg prosthesis for mobility. ALLERGIES: PENICILLIN AND AMOXICILLIN, CAUSING A RASH. He has tolerated Keflex without problems. MEDICATIONS: Zosyn, CellCept and Prograf. Other medications are available and have been reviewed on the MAY. REVIEW OF SYSTEMS: Per HPI; otherwise, all other review of systems are negative. PHYSICAL EXAMINATION: GENERAL: The patient is slightly propped up in bed, alert, calm. VITAL SIGNS: Temperature is 99.0, T-max 101.8, blood pressure 156/69, heart rate 132, respiratory rate 20 and pulse oximetry is 89% on Ventimask, FiO2 50%. BMI 21. HEENT: Left eye prosthesis. Oral cavity, pharynx pink, dry. No lesions seen. NECK: Supple. LUNGS: Congested. Nonlabored. HEART: S1 and S2. ABDOMEN: Bowel sounds active. Soft, nontender. EXTREMITIES: Tddyc-lnm-tccz amputation bilaterally. No cyanosis. SKIN: Warm, without rash. NEUROLOGIC: Alert and oriented x 3. LABORATORY DATA: Recent WBC 10.6, hemoglobin 8.9 and platelets 237,000. Sed rate 75. Sodium 142, potassium 4.2, creatinine 2.1, BUN 29 and glucose 224. Lactic acid 0.7. Troponin 0.019. TSH 3.222. Total bilirubin 0.4, AST 16 and ALT 16. Influenza screen from 01/23/2018 negative. Chest x-ray per HPI. Brain MRI showed no acute parenchymal abnormalities. Mild mucosal thickening seen scattered throughout the paranasal sinuses. Moderate-sized bilateral mastoid effusions. Abdominal/pelvic CT revealed severely atrophic and scarred bilateral kidneys. Mild perinephritic edema related to a left iliac fossa renal transplant. Borderline prostatic enlargement with distention of the urinary bladder. Gastric distention with fluid. Left basilar pulmonary infiltrates, suggesting pneumonia. IMPRESSION: 1. Healthcare-acquired pneumonia. 2. Fever. 3. Chronic immunosuppression. 4. ALLERGY TO PENICILLIN AND AMOXICILLIN, CAUSING RASH. Has taken Keflex without problems and is tolerating the Zosyn. 5. Acute hypoxic respiratory failure. 6. Qrybe-fa-acebwpk congestive heart failure. 7. Acute kidney injury. 8. Peripheral vascular disease with history of edtuf-zrc-xhkd amputation bilaterally. 9. Diabetes mellitus type 1. PLAN: Continue the Zosyn and monitor for rash. We will add Zyvox. We will avoid Levaquin as there is a [id number]-cn-[id number] interaction with Prograf. We will obtain a sputum culture. Check strep and Legionella antigen along with mycoplasma IgM and blood cultures. Continue to monitor laboratory values, temperature and response. Supportive care. Thank you, Dr. Gonzalez, for asking us to participate in this patient's care. Should you have further questions or concerns, please call. TASHA CORDOVA MD DR: Chu JOB#: [id number] / [id number]
[2018-01-28 03:00] VITALS: BP 142/55
--- NOTE | 2018-01-28 03:50 | RAD ---
Renal ultrasound complete History: JAMAL WITH TRANSPLANT Sonographic examination of the kidneys was performed and multiple static images were obtained. Right kidney: The right kidney is seen with no hydronephrosis and measures 6.8 cm in length. The right kidney is atrophic and echogenic. Left kidney: The left kidney is seen with no hydronephrosis and measures 10.4 cm in length. Left transplanted pelvic kidney: The kidneys to the hydronephrosis measures 11.1 cm in length. Urinary bladder: The urinary bladder is collapsed and not well visualized. Impression: No hydronephrosis. Electronically signed by: Osei Michelle III, MD (01/28/2018 3:47 AM) [facility]
[2018-01-28 04:09] LABS: BASO % 1 % (0-3); EOS % 0 % (0-3); HEMOGLOBIN 7.1 g/dL (13.0-17.5); LYMPH # 1.5 x10^3/uL (1.0-4.8); LYMPH % 15 % (24-48); MEAN CORPUSCULAR HEMOGLOBIN 32 pg (25-35); MEAN CORPUSCULAR HGB CONC 36 g/dL (31-37); MEAN CORPUSCULAR VOLUME 88 fL (79-100); MONO # 1.2 x10^3/uL (0.0-1.1); MONO % 12 % (0-9); NEUT # 7.4 x10^3uL (1.8-7.7); NEUT % 72 % (31-73); PLATELET COUNT 216 x10^3/uL (140-400); RED BLOOD COUNT 2.23 x10^6/uL (4.30-5.70); RED CELL DISTRIBUTION WIDTH 13.4 % (11.5-14.5); WHITE BLOOD COUNT 10.2 x10^3/uL (4.0-11.0)
[2018-01-28 04:13] LABS: HEMATOCRIT 19.6 % (39.0-53.0)
[2018-01-28 04:18] LABS: CALCIUM 8.7 mg/dL (8.5-10.1); CREATININE 3.7 mg/dL (0.7-1.3); GFR 17.5; POTASSIUM 3.7 mmol/L (3.5-5.1)
[2018-01-28] MEDS: PANTOPRAZOLE IV PUSH 40 MG VIAL. IVP SCH ×2 (06:02→08:59)
[2018-01-28] MEDS: METOCLOPRAMIDE HCL 10 MG/2 ML VIAL. IV SCH (06:02)
[2018-01-28] MEDS: PIPERACILLIN/TAZOBACTAM 3.375 GM in IV NORMAL SALINE 50ML 50 ML IV SCH (06:03)
[2018-01-28 07:05] VITALS: BP 139/64
--- NOTE | 2018-01-28 08:22 | PDOC ---
Infectious Disease Note Subjective: Subjective pt says feels much better this morning had to be on bipap last night due to hypoxia now on vm says able to bring up expectoration no f/c no diarrhea tolerating zosyn well ROS: ROS Negative except for above. Vital Signs: Vital Signs Vital Signs Date Time Temp Pulse Resp B/P (MAP) Pulse Ox O2 Delivery O2 Flow Rate FiO2 01/28/18 07:05 98.7 90 20 139/64 (89) 99 BiPAP/CPAP 98.7 01/27/18 19:45 15.0 Physical Exam: PHYSICAL EXAM GENERAL: The patient is slightly propped up in bed, axox3 HEENT: Left eye prosthesis. Oral cavity, pharynx pink, dry. No lesions seen. NECK: Supple. LUNGS: Congested. Nonlabored. HEART: S1 and S2. ABDOMEN: Bowel sounds active. Soft, nontender. gu connell in place with clear urine EXTREMITIES: [id number] amputation bilaterally. No cyanosis. SKIN: Warm, without rash. NEUROLOGIC: Alert and oriented x 3. Medications: Inpatient Meds: Current Medications Medications (Trade) Dose Ordered Sig/Penelope Start Time Stop Time Status Last Admin Dose Admin Acetaminophen (Tylenol) 650 mg PRN Q6HRS PRN 01/24/18 03:15 01/27/18 18:54 650 MG Amlodipine Besylate (Norvasc) 5 mg DAILY 01/24/18 11:30 01/27/18 07:56 5 MG Carvedilol (Coreg) 25 mg BIDWMEALS 01/24/18 17:00 01/27/18 15:27 25 MG Clonidine HCl (Catapres Tts-3) 1 patch WEEKLY 01/25/18 13:00 01/25/18 14:02 1 PATCH Clonidine HCl (Catapres) 0.2 mg BID 01/24/18 11:30 01/27/18 21:01 0.2 MG Clopidogrel Bisulfate (Plavix) 75 mg DAILY 01/24/18 11:30 01/27/18 07:55 75 MG Dextrose (Dextrose 50%-Water Syringe) 12.5 gm PRN Q15MIN PRN 01/23/18 23:00 Diphenhydramine HCl (Benadryl) 25 mg 1X ONCE 01/23/18 19:15 01/23/18 19:17 DC 01/23/18 19:25 25 MG Fentanyl Citrate (Fentanyl 2ml Vial) 50 mcg PRN Q3HRS PRN 01/25/18 09:15 01/26/18 22:05 50 MCG Furosemide (Lasix) 40 mg DAILY 01/26/18 10:30 01/27/18 07:54 40 MG Gabapentin (Neurontin) 100 mg TID 01/24/18 16:00 01/27/18 21:00 100 MG Insulin Glargine (Lantus) 4 units BID 01/24/18 11:30 01/27/18 21:15 4 UNITS Insulin Human Lispro (HumaLOG) 10 units 1X ONCE 01/24/18 05:00 01/24/18 05:02 DC 01/24/18 05:09 10 UNITS Insulin Human Regular (HumuLIN R VIAL) 5 unit 1X ONCE 01/23/18 19:45 01/23/18 19:46 DC 01/23/18 19:55 5 UNIT Labetalol HCl (Normodyne Iv Push) 20 mg PRN Q4HRS PRN 01/25/18 13:00 01/25/18 14:05 20 MG Levalbuterol HCl (Xopenex) 1.25 mg PRN Q6HRS PRN 01/26/18 08:45 01/27/18 12:19 1.25 MG Levofloxacin/ Dextrose 100 ml @ 100 mls/hr Q24H 01/26/18 08:30 01/26/18 09:32 DC Lidocaine HCl (Xylocaine-Mpf 1% 2ml Vial) 2 ml STK-MED ONCE 01/25/18 15:07 01/25/18 15:08 DC Linezolid/Dextrose 300 ml @ 300 mls/hr Q12HR 01/27/18 10:00 01/27/18 21:01 300 MLS/HR Magnesium Sulfate/ Dextrose 100 ml @ 100 mls/hr 1X ONCE 01/24/18 09:15 01/24/18 10:14 DC 01/24/18 12:01 100 MLS/HR Metoclopramide HCl (Reglan Vial) 5 mg Q6HRS 01/25/18 18:00 01/28/18 06:02 5 MG Metoprolol Tartrate (Lopressor Vial) 7.5 mg Q6HRS 01/25/18 18:00 01/25/18 18:00 DC Morphine Sulfate (Morphine Sulfate) 2 mg PRN Q2HR PRN 01/24/18 11:00 Mycophenolate Mofetil (Cellcept) 250 mg BID 01/27/18 21:00 01/27/18 21:00 250 MG Mycophenolate Mofetil 250 mg/ Dextrose 42 ml @ 21 mls/hr Q12H 01/24/18 21:00 01/27/18 14:11 DC 01/27/18 09:33 21 MLS/HR Nicardipine HCl 50 mg/Sodium Chloride 270 ml @ 32.4 mls/hr CONT PRN 01/24/18 03:00 01/27/18 05:03 27 MLS/HR Non-Formulary Medication (Hydrochlorothiazide (Hydrochlorothiazide Capsule )) 10 mg BID 01/24/18 21:00 01/24/18 21:00 DC Ondansetron HCl (Zofran) 4 mg PRN Q6HRS PRN 01/24/18 03:15 01/26/18 22:04 4 MG Oxycodone/ Acetaminophen (Percocet 5/325) 1 tab PRN Q4HRS PRN 01/24/18 01:00 Pantoprazole Sodium (PROTONIX VIAL for IV PUSH) 40 mg BIDAC 01/25/18 16:30 01/28/18 06:02 40 MG Pantoprazole Sodium (Protonix) 40 mg DAILYAC 01/24/18 11:30 01/24/18 12:01 DC Piperacillin Sod/ Tazobactam Sod (Zosyn Per Pharmacy) 1 each PRN DAILY PRN 01/26/18 10:00 Piperacillin Sod/ Tazobactam Sod 3.375 gm/Sodium Chloride 50 ml @ 100 mls/hr Q6HRS 01/26/18 11:00 01/28/18 06:03 100 MLS/HR Prochlorperazine Edisylate (Compazine) 10 mg PRN Q6HRS PRN 01/24/18 03:15 01/27/18 06:31 10 MG Propofol 20 ml @ As Directed STK-MED ONCE 01/25/18 15:07 01/25/18 15:08 DC Ringer's Solution 1,000 ml @ 30 mls/hr Q24H 01/25/18 15:15 Cancel Sodium Chloride 1,000 ml @ 0 mls/hr Q0M 01/25/18 15:15 01/25/18 15:43 DC 01/25/18 15:13 50 MLS/HR Sodium Chloride (Saline Mist Nasal) 1 bryan PRN Q1HR PRN 01/24/18 17:30 Tacrolimus (Prograf) 4 mg DAILY 01/28/18 09:00 Trimethobenzamide HCl (Tigan Im) 200 mg PRN Q6HRS PRN 01/24/18 11:00 Labs: Lab Laboratory Tests Test 01/27/18 09:25 01/27/18 12:10 01/27/18 12:13 01/27/18 15:47 White Blood Count 13.0 x10^3/uL (4.0-11.0) Red Blood Count 2.77 x10^6/uL (4.30-5.70) Hemoglobin 8.5 g/dL (13.0-17.5) Hematocrit 24.6 % (39.0-53.0) Mean Corpuscular Volume 89 fL (79-100) Mean Corpuscular Hemoglobin 31 pg (25-35) Mean Corpuscular Hemoglobin Concent 35 g/dL (31-37) Red Cell Distribution Width 13.1 % (11.5-14.5) Platelet Count 230 x10^3/uL (140-400) Neutrophils (%) (Auto) 85 % (31-73) Lymphocytes (%) (Auto) 3 % (24-48) Monocytes (%) (Auto) 12 % (0-9) Eosinophils (%) (Auto) 0 % (0-3) Basophils (%) (Auto) 0 % (0-3) Neutrophils # (Auto) 10.9 x10^3uL (1.8-7.7) Lymphocytes # (Auto) 0.4 x10^3/uL (1.0-4.8) Monocytes # (Auto) 1.5 x10^3/uL (0.0-1.1) Eosinophils # (Auto) 0.0 x10^3/uL (0.0-0.7) Basophils # (Auto) 0.1 x10^3/uL (0.0-0.2) Sodium Level 137 mmol/L (136-145) Potassium Level 3.8 mmol/L (3.5-5.1) Chloride Level 103 mmol/L (98-107) Carbon Dioxide Level 20 mmol/L (21-32) Anion Gap 14 (6-14) Blood Urea Nitrogen 32 mg/dL (8-26) Creatinine 2.9 mg/dL (0.7-1.3) Estimated GFR (Cockcroft-Gault) 23.1 Glucose Level 299 mg/dL (70-99) Calcium Level 8.5 mg/dL (8.5-10.1) Mycoplasma Serology (LAB) Negative (NEGATIVE) Urine Collection Type Unknown Urine Color Yellow Urine Clarity Clear Urine pH 5.0 Urine Specific [place] 1.020 Urine Protein 100 mg/dL (NEG-TRACE) Urine Glucose (UA) 100 mg/dL (NEG) Urine Ketones (Stick) Trace mg/dL (NEG) Urine Blood Negative (NEG) Urine Nitrite Negative (NEG) Urine Bilirubin Negative (NEG) Urine Urobilinogen Dipstick 0.2 mg/dL (0.2 mg/dL) Urine Leukocyte Esterase Moderate (NEG) Urine RBC 0 /HPF (0-2) Urine WBC >40 /HPF (0-4) Urine Squamous Epithelial Cells Few /LPF Urine Transitional Epithelial Cells Few /LPF Urine Amorphous Sediment Present /HPF Urine Bacteria 0 /HPF (0-FEW) Urine Hyaline Casts Moderate /HPF Urine Granular Casts Few /HPF Urine Waxy Casts Occasional /HPF Urine Mucus Mod /LPF Glucose (Fingerstick) 325 mg/dL (70-99) 263 mg/dL (70-99) Test 01/27/18 20:59 01/28/18 02:50 01/28/18 07:06 Glucose (Fingerstick) 209 mg/dL (70-99) 233 mg/dL (70-99) White Blood Count 10.2 x10^3/uL (4.0-11.0) Red Blood Count 2.23 x10^6/uL (4.30-5.70) Hemoglobin 7.1 g/dL (13.0-17.5) Hematocrit 19.6 % (39.0-53.0) Mean Corpuscular Volume 88 fL (79-100) Mean Corpuscular Hemoglobin 32 pg (25-35) Mean Corpuscular Hemoglobin Concent 36 g/dL (31-37) Red Cell Distribution Width 13.4 % (11.5-14.5) Platelet Count 216 x10^3/uL (140-400) Neutrophils (%) (Auto) 72 % (31-73) Lymphocytes (%) (Auto) 15 % (24-48) Monocytes (%) (Auto) 12 % (0-9) Eosinophils (%) (Auto) 0 % (0-3) Basophils (%) (Auto) 1 % (0-3) Neutrophils # (Auto) 7.4 x10^3uL (1.8-7.7) Lymphocytes # (Auto) 1.5 x10^3/uL (1.0-4.8) Monocytes # (Auto) 1.2 x10^3/uL (0.0-1.1) Eosinophils # (Auto) 0.0 x10^3/uL (0.0-0.7) Basophils # (Auto) 0.0 x10^3/uL (0.0-0.2) Sodium Level 137 mmol/L (136-145) Potassium Level 3.7 mmol/L (3.5-5.1) Chloride Level 104 mmol/L (98-107) Carbon Dioxide Level 23 mmol/L (21-32) Anion Gap 10 (6-14) Blood Urea Nitrogen 37 mg/dL (8-26) Creatinine 3.7 mg/dL (0.7-1.3) Estimated GFR (Cockcroft-Gault) 17.5 Glucose Level 226 mg/dL (70-99) Calcium Level 8.7 mg/dL (8.5-10.1) Micro CXR Impression: Retrocardiac left basilar consolidation spec. Vascular congestion and small left effusion. Sputum neg BC neg so far Objective: Assessment: 1. Acute respiratory failure. 2. Left lower lobe pneumonia; flu screen neg, mycoplasma Igm neg 3. Acute on chronic heart failure. 4. End-stage renal disease, status post renal transplant. 5. Immunocompromised. 6. Accelerated hypertension. 7. Type 2 diabetes. 8. h/o Bilateral BKA Plan: Plan of Care Continue Zosyn - monitor for rash cont zyvox add empiric doxycycline Sputum culture f/u Strep ag, legionella ag, f/u BC Monitor labs/temp Supportive care D/w KATINA OLSEN MD Jan 28, 2018 08:22
[2018-01-28] MEDS: MYCOPHENOLATE MOFETIL 250 MG CAPSULE. PO SCH ×2 (08:57→20:51)
[2018-01-28] MEDS: GABAPENTIN 100 MG CAPSULE. PO SCH ×3 (08:58→20:51)
[2018-01-28] MEDS: cloNIDine HCL 0.2 MG TABLET PO SCH ×2 (08:58→20:50)
[2018-01-28] MEDS: amLODIPine BESYLATE 5 MG TABLET PO SCH (08:58)
[2018-01-28] MEDS: CLOPIDOGREL BISULFATE 75 MG TABLET PO SCH (08:58)
[2018-01-28] MEDS: CARVEDILOL 12.5 MG TABLET. PO SCH ×2 (08:58→17:19)
[2018-01-28] MEDS: FUROSEMIDE 40 MG/4 ML VIAL. IVP SCH (08:59)
[2018-01-28] MEDS ORDERED: DOXYCYCLINE HYCLATE 100 MG TABLET PO SCH (09:00)
[2018-01-28] MEDS: TACROLIMUS 1 MG CAPSULE PO SCH ×2 (09:00→21:16)
--- NOTE | 2018-01-28 09:13 | PDOC ---
PULMONARY PROGRESS NOTES Subjective PT BETTER OFF BIPAP Vitals Vital Signs Date Time Temp Pulse Resp B/P (MAP) Pulse Ox O2 Delivery O2 Flow Rate FiO2 01/28/18 08:58 92 01/28/18 07:05 98.7 20 139/64 (89) 99 BiPAP/CPAP 98.7 01/27/18 19:45 15.0 ROS: No Nausea, No Chest Pain, No Abdominal Pain Lungs: Crackles Cardiovascular: S1, S2 Abdomen: Soft Neuro Exam: Alert Extremities: Other (S/P BKA) Skin: Warm Labs Laboratory Tests Test 01/26/18 12:13 01/26/18 17:14 01/26/18 17:20 01/26/18 20:27 Glucose (Fingerstick) 224 mg/dL (70-99) 231 mg/dL (70-99) 230 mg/dL (70-99) Lactic Acid Level 0.7 mmol/L (0.4-2.0) Test 01/27/18 07:55 01/27/18 09:25 01/27/18 12:10 01/27/18 12:13 Glucose (Fingerstick) 307 mg/dL (70-99) 325 mg/dL (70-99) White Blood Count 13.0 x10^3/uL (4.0-11.0) Red Blood Count 2.77 x10^6/uL (4.30-5.70) Hemoglobin 8.5 g/dL (13.0-17.5) Hematocrit 24.6 % (39.0-53.0) Mean Corpuscular Volume 89 fL (79-100) Mean Corpuscular Hemoglobin 31 pg (25-35) Mean Corpuscular Hemoglobin Concent 35 g/dL (31-37) Red Cell Distribution Width 13.1 % (11.5-14.5) Platelet Count 230 x10^3/uL (140-400) Neutrophils (%) (Auto) 85 % (31-73) Lymphocytes (%) (Auto) 3 % (24-48) Monocytes (%) (Auto) 12 % (0-9) Eosinophils (%) (Auto) 0 % (0-3) Basophils (%) (Auto) 0 % (0-3) Neutrophils # (Auto) 10.9 x10^3uL (1.8-7.7) Lymphocytes # (Auto) 0.4 x10^3/uL (1.0-4.8) Monocytes # (Auto) 1.5 x10^3/uL (0.0-1.1) Eosinophils # (Auto) 0.0 x10^3/uL (0.0-0.7) Basophils # (Auto) 0.1 x10^3/uL (0.0-0.2) Sodium Level 137 mmol/L (136-145) Potassium Level 3.8 mmol/L (3.5-5.1) Chloride Level 103 mmol/L (98-107) Carbon Dioxide Level 20 mmol/L (21-32) Anion Gap 14 (6-14) Blood Urea Nitrogen 32 mg/dL (8-26) Creatinine 2.9 mg/dL (0.7-1.3) Estimated GFR (Cockcroft-Gault) 23.1 Glucose Level 299 mg/dL (70-99) Calcium Level 8.5 mg/dL (8.5-10.1) Mycoplasma Serology (LAB) Negative (NEGATIVE) Urine Collection Type Unknown Urine Color Yellow Urine Clarity Clear Urine pH 5.0 Urine Specific [place] 1.020 Urine Protein 100 mg/dL (NEG-TRACE) Urine Glucose (UA) 100 mg/dL (NEG) Urine Ketones (Stick) Trace mg/dL (NEG) Urine Blood Negative (NEG) Urine Nitrite Negative (NEG) Urine Bilirubin Negative (NEG) Urine Urobilinogen Dipstick 0.2 mg/dL (0.2 mg/dL) Urine Leukocyte Esterase Moderate (NEG) Urine RBC 0 /HPF (0-2) Urine WBC >40 /HPF (0-4) Urine Squamous Epithelial Cells Few /LPF Urine Transitional Epithelial Cells Few /LPF Urine Amorphous Sediment Present /HPF Urine Bacteria 0 /HPF (0-FEW) Urine Hyaline Casts Moderate /HPF Urine Granular Casts Few /HPF Urine Waxy Casts Occasional /HPF Urine Mucus Mod /LPF Test 01/27/18 15:47 01/27/18 20:59 01/28/18 02:50 01/28/18 07:06 Glucose (Fingerstick) 263 mg/dL (70-99) 209 mg/dL (70-99) 233 mg/dL (70-99) White Blood Count 10.2 x10^3/uL (4.0-11.0) Red Blood Count 2.23 x10^6/uL (4.30-5.70) Hemoglobin 7.1 g/dL (13.0-17.5) Hematocrit 19.6 % (39.0-53.0) Mean Corpuscular Volume 88 fL (79-100) Mean Corpuscular Hemoglobin 32 pg (25-35) Mean Corpuscular Hemoglobin Concent 36 g/dL (31-37) Red Cell Distribution Width 13.4 % (11.5-14.5) Platelet Count 216 x10^3/uL (140-400) Neutrophils (%) (Auto) 72 % (31-73) Lymphocytes (%) (Auto) 15 % (24-48) Monocytes (%) (Auto) 12 % (0-9) Eosinophils (%) (Auto) 0 % (0-3) Basophils (%) (Auto) 1 % (0-3) Neutrophils # (Auto) 7.4 x10^3uL (1.8-7.7) Lymphocytes # (Auto) 1.5 x10^3/uL (1.0-4.8) Monocytes # (Auto) 1.2 x10^3/uL (0.0-1.1) Eosinophils # (Auto) 0.0 x10^3/uL (0.0-0.7) Basophils # (Auto) 0.0 x10^3/uL (0.0-0.2) Sodium Level 137 mmol/L (136-145) Potassium Level 3.7 mmol/L (3.5-5.1) Chloride Level 104 mmol/L (98-107) Carbon Dioxide Level 23 mmol/L (21-32) Anion Gap 10 (6-14) Blood Urea Nitrogen 37 mg/dL (8-26) Creatinine 3.7 mg/dL (0.7-1.3) Estimated GFR (Cockcroft-Gault) 17.5 Glucose Level 226 mg/dL (70-99) Calcium Level 8.7 mg/dL (8.5-10.1) Laboratory Tests Test 01/27/18 09:25 01/27/18 12:10 01/27/18 12:13 01/27/18 15:47 White Blood Count 13.0 x10^3/uL (4.0-11.0) Red Blood Count 2.77 x10^6/uL (4.30-5.70) Hemoglobin 8.5 g/dL (13.0-17.5) Hematocrit 24.6 % (39.0-53.0) Mean Corpuscular Volume 89 fL (79-100) Mean Corpuscular Hemoglobin 31 pg (25-35) Mean Corpuscular Hemoglobin Concent 35 g/dL (31-37) Red Cell Distribution Width 13.1 % (11.5-14.5) Platelet Count 230 x10^3/uL (140-400) Neutrophils (%) (Auto) 85 % (31-73) Lymphocytes (%) (Auto) 3 % (24-48) Monocytes (%) (Auto) 12 % (0-9) Eosinophils (%) (Auto) 0 % (0-3) Basophils (%) (Auto) 0 % (0-3) Neutrophils # (Auto) 10.9 x10^3uL (1.8-7.7) Lymphocytes # (Auto) 0.4 x10^3/uL (1.0-4.8) Monocytes # (Auto) 1.5 x10^3/uL (0.0-1.1) Eosinophils # (Auto) 0.0 x10^3/uL (0.0-0.7) Basophils # (Auto) 0.1 x10^3/uL (0.0-0.2) Sodium Level 137 mmol/L (136-145) Potassium Level 3.8 mmol/L (3.5-5.1) Chloride Level 103 mmol/L (98-107) Carbon Dioxide Level 20 mmol/L (21-32) Anion Gap 14 (6-14) Blood Urea Nitrogen 32 mg/dL (8-26) Creatinine 2.9 mg/dL (0.7-1.3) Estimated GFR (Cockcroft-Gault) 23.1 Glucose Level 299 mg/dL (70-99) Calcium Level 8.5 mg/dL (8.5-10.1) Mycoplasma Serology (LAB) Negative (NEGATIVE) Urine Collection Type Unknown Urine Color Yellow Urine Clarity Clear Urine pH 5.0 Urine Specific [place] 1.020 Urine Protein 100 mg/dL (NEG-TRACE) Urine Glucose (UA) 100 mg/dL (NEG) Urine Ketones (Stick) Trace mg/dL (NEG) Urine Blood Negative (NEG) Urine Nitrite Negative (NEG) Urine Bilirubin Negative (NEG) Urine Urobilinogen Dipstick 0.2 mg/dL (0.2 mg/dL) Urine Leukocyte Esterase Moderate (NEG) Urine RBC 0 /HPF (0-2) Urine WBC >40 /HPF (0-4) Urine Squamous Epithelial Cells Few /LPF Urine Transitional Epithelial Cells Few /LPF Urine Amorphous Sediment Present /HPF Urine Bacteria 0 /HPF (0-FEW) Urine Hyaline Casts Moderate /HPF Urine Granular Casts Few /HPF Urine Waxy Casts Occasional /HPF Urine Mucus Mod /LPF Glucose (Fingerstick) 325 mg/dL (70-99) 263 mg/dL (70-99) Test 01/27/18 20:59 01/28/18 02:50 01/28/18 07:06 Glucose (Fingerstick) 209 mg/dL (70-99) 233 mg/dL (70-99) White Blood Count 10.2 x10^3/uL (4.0-11.0) Red Blood Count 2.23 x10^6/uL (4.30-5.70) Hemoglobin 7.1 g/dL (13.0-17.5) Hematocrit 19.6 % (39.0-53.0) Mean Corpuscular Volume 88 fL (79-100) Mean Corpuscular Hemoglobin 32 pg (25-35) Mean Corpuscular Hemoglobin Concent 36 g/dL (31-37) Red Cell Distribution Width 13.4 % (11.5-14.5) Platelet Count 216 x10^3/uL (140-400) Neutrophils (%) (Auto) 72 % (31-73) Lymphocytes (%) (Auto) 15 % (24-48) Monocytes (%) (Auto) 12 % (0-9) Eosinophils (%) (Auto) 0 % (0-3) Basophils (%) (Auto) 1 % (0-3) Neutrophils # (Auto) 7.4 x10^3uL (1.8-7.7) Lymphocytes # (Auto) 1.5 x10^3/uL (1.0-4.8) Monocytes # (Auto) 1.2 x10^3/uL (0.0-1.1) Eosinophils # (Auto) 0.0 x10^3/uL (0.0-0.7) Basophils # (Auto) 0.0 x10^3/uL (0.0-0.2) Sodium Level 137 mmol/L (136-145) Potassium Level 3.7 mmol/L (3.5-5.1) Chloride Level 104 mmol/L (98-107) Carbon Dioxide Level 23 mmol/L (21-32) Anion Gap 10 (6-14) Blood Urea Nitrogen 37 mg/dL (8-26) Creatinine 3.7 mg/dL (0.7-1.3) Estimated GFR (Cockcroft-Gault) 17.5 Glucose Level 226 mg/dL (70-99) Calcium Level 8.7 mg/dL (8.5-10.1) Medications Active Scripts Medications Dose Route/Sig Max Daily Dose Days Date Category Prograf (Tacrolimus) 1 Mg Capsule 3 Cap PO QHS 01/24/18 Reported Prograf (Tacrolimus) 1 Mg Capsule 4 Cap PO DAILY 01/24/18 Reported Lantus Solostar (Insulin Glargine,Hum.rec.anlog) 100 Unit/1 Ml Insuln.pen 4 Unit SQ [id number] 01/24/18 Reported Lantus Solostar (Insulin Glargine,Hum.rec.anlog) 100 Unit/1 Ml Insuln.pen 4 Unit SQ QHS 01/24/18 Reported Amlodipine Besylate 5 Mg Tablet 5 Mg PO DAILY 01/24/18 Reported Clonidine Hcl 0.2 Mg Tablet 1 Tab PO BID 01/24/18 Reported Oxycodone-Acetaminophen 5-325 (Oxycodone Hcl/Acetaminophen) 1 Each Tablet 1 Tab PO PRN Q4HRS PRN 07/15/16 Rx Clopidogrel (Clopidogrel Bisulfate) 75 Mg Tablet 1 Tab PO DAILY 07/15/16 Reported Cellcept (Mycophenolate Mofetil) 250 Mg Capsule 1 Cap PO BID 07/15/16 Reported Pantoprazole Sodium 20 Mg Tablet.dr 20 Mg PO DAILY 07/15/16 Reported Hydrochlorothiazide Capsule (Hydrochlorothiazide) 12.5 Mg Capsule 10 Mg PO BID 07/15/16 Reported Carvedilol 25 Mg Tablet 2 Tab PO [id number] 07/15/16 Reported Impression . IMPRESSION: 1. Acute respiratory failure. 2. Left lower lobe pneumonia, suspect gram negative. 3. Acute on chronic heart failure. 4. End-stage renal disease, status post renal transplant. 5. Immunocompromised. 6. Accelerated hypertension. 7. Type 2 diabetes. 8. ACUTE DROP IN HGB CXR Impression: Retrocardiac left basilar consolidation spec. Vascular congestion and small left effusion. Plan . BETTER TODAY PRN BIPAP WORKING WITH PT DROP IN HGB MONITOR H/H CONTINUE THE SAME SOPHIA MCGOWAN MD Jan 28, 2018 09:13
[2018-01-28] MEDS: INSULIN GLARGINE 300 UNITS/3 ML INSULN.PEN. SQ SCH ×2 (09:30→21:22)
[2018-01-28] MEDS: INSULIN LISPRO 300 UNITS/3 ML INSULN.PEN. SQ SCH ×3 (09:30→17:26)
--- NOTE | 2018-01-28 09:56 | PDOC ---
Subjective: Subjective: Tells me "ate well" this morning. Denies n/v, denies abd pain. Hasn't stooled. Says breathing is better. Objective: Objective: Reviewed w/ RN - tolerating PO, has HAP, needed BiPAP. Vital Signs: Vital Signs Date Time Temp Pulse Resp B/P (MAP) Pulse Ox O2 Delivery O2 Flow Rate FiO2 01/28/18 08:58 92 01/28/18 07:05 98.7 20 139/64 (89) 99 BiPAP/CPAP 98.7 01/27/18 19:45 15.0 Labs: Laboratory Tests Test 01/27/18 12:10 01/27/18 12:13 01/27/18 15:47 01/27/18 20:59 Urine Collection Type Unknown Urine Color Yellow Urine Clarity Clear Urine pH 5.0 Urine Specific [place] 1.020 Urine Protein 100 mg/dL Urine Glucose (UA) 100 mg/dL Urine Ketones (Stick) Trace mg/dL Urine Blood Negative Urine Nitrite Negative Urine Bilirubin Negative Urine Urobilinogen Dipstick 0.2 mg/dL Urine Leukocyte Esterase Moderate Urine RBC 0 /HPF Urine WBC >40 /HPF Urine Squamous Epithelial Cells Few /LPF Urine Transitional Epithelial Cells Few /LPF Urine Amorphous Sediment Present /HPF Urine Bacteria 0 /HPF Urine Hyaline Casts Moderate /HPF Urine Granular Casts Few /HPF Urine Waxy Casts Occasional /HPF Urine Mucus Mod /LPF Glucose (Fingerstick) 325 mg/dL 263 mg/dL 209 mg/dL Test 01/28/18 02:50 01/28/18 07:06 White Blood Count 10.2 x10^3/uL Red Blood Count 2.23 x10^6/uL Hemoglobin 7.1 g/dL Hematocrit 19.6 % Mean Corpuscular Volume 88 fL Mean Corpuscular Hemoglobin 32 pg Mean Corpuscular Hemoglobin Concent 36 g/dL Red Cell Distribution Width 13.4 % Platelet Count 216 x10^3/uL Neutrophils (%) (Auto) 72 % Lymphocytes (%) (Auto) 15 % Monocytes (%) (Auto) 12 % Eosinophils (%) (Auto) 0 % Basophils (%) (Auto) 1 % Neutrophils # (Auto) 7.4 x10^3uL Lymphocytes # (Auto) 1.5 x10^3/uL Monocytes # (Auto) 1.2 x10^3/uL Eosinophils # (Auto) 0.0 x10^3/uL Basophils # (Auto) 0.0 x10^3/uL Sodium Level 137 mmol/L Potassium Level 3.7 mmol/L Chloride Level 104 mmol/L Carbon Dioxide Level 23 mmol/L Anion Gap 10 Blood Urea Nitrogen 37 mg/dL Creatinine 3.7 mg/dL Estimated GFR (Cockcroft-Gault) 17.5 Glucose Level 226 mg/dL Calcium Level 8.7 mg/dL Glucose (Fingerstick) 233 mg/dL BLOOD CULTURE Preliminary NO GROWTH AFTER 1 DAY Imaging: Renal US 01/27 Impression: No hydronephrosis. CXR 01/27 Impression: Retrocardiac left basilar consolidation spec. Vascular congestion and small left effusion. CXR 01/26 Impression: Left basilar pleural effusion and consolidation/atelectasis. Follow-up to resolution is recommended. EGD 01/25 E--Exudative/friable distally due to reflux/vomiting. G--moderate amount hematinish, watery fluid. Mostly suctioned out. No GOO and otherwise normal. D--Normal to second portion. IMP: Severe esophagitis Gastroparesis suspect. No gastric outlet obstruction. Brain MRI 01/25 Impression: No acute parenchymal abnormality is seen. Echocardiogram 01/25 <Conclusion> The left ventricle is normal size. The left ventricular systolic function is normal and the ejection fraction is within normal range. The Ejection Fraction is 55-60%. There is mild concentric left ventricular hypertrophy. There is no significant aortic valvular stenosis. Doppler and Color Flow revealed trace aortic regurgitation. Doppler and Color-flow revealed trace to mild mitral regurgitation. Doppler and Color Flow revealed trace tricuspid regurgitation. PE: GEN: NAD, resting LUNGS: Venturi mask HEART: RRR ABD: S/ND/NT NEURO/PSYCH: A & O 3 A/P: N/v - resolved -on EGD as above: severe esophagitis, suspect gastroparesis Anemia - Hgb drifting HAP, HTN (better), DM, CKD (Cr worse), h/o renal transplants/immunosuppression -- Now tolerating food - change to PO PPI and transition to PO Reglan (susp). ?transfuse PURA-ELIOT SOFIA Jan 28, 2018 09:56
--- NOTE | 2018-01-28 10:22 | PDOC ---
PROGRESS NOTES Assessment Problems Medical Problems: (1) Hypertensive urgency Status: Acute (2) Intractable nausea and vomiting Status: Acute (3) Migraine headache Status: Acute Cluster headache. Hypertensive emergency, SBP 229 mmHg. Left LL pneumonia and pleural effusion. 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 No evidence of acute CVA Plan BP control. Pain control. Neurontin 100 mg tid. Treat medical diseases. Subjective He denies headaches Objective Vital Signs Date Time Temp Pulse Resp B/P (MAP) Pulse Ox O2 Delivery O2 Flow Rate FiO2 01/28/18 08:58 92 01/28/18 07:05 98.7 20 139/64 (89) 99 BiPAP/CPAP 98.7 01/27/18 19:45 15.0 Intake and Output 01/28/18 07:00 Intake Total 860 ml Output Total 650 ml Balance 210 ml Intake Oral 120 ml IV Total 740 ml Output Urine Total 650 ml PHYSICAL EXAM Alert. Oriented to time, place and person. Right people reactive, left prosthetic eye EOMI. CN: no focal findings. Muscle tone: normal. Muscle strength: 5/5 DTR: 2+ arms, 1+ legs Plantar reflex: has bilateral below the knee amputations Gait: not examined in bed. Sensory exam: no abnormal findings. No cerebellar signs elicited. Review of Relevant I have reviewed the following items nadiya (where applicable) has been applied. Labs Laboratory Tests Test 01/26/18 12:13 01/26/18 17:14 01/26/18 17:20 01/26/18 20:27 Glucose (Fingerstick) 224 mg/dL (70-99) 231 mg/dL (70-99) 230 mg/dL (70-99) Lactic Acid Level 0.7 mmol/L (0.4-2.0) Test 01/27/18 07:55 01/27/18 09:25 01/27/18 12:10 01/27/18 12:13 Glucose (Fingerstick) 307 mg/dL (70-99) 325 mg/dL (70-99) White Blood Count 13.0 x10^3/uL (4.0-11.0) Red Blood Count 2.77 x10^6/uL (4.30-5.70) Hemoglobin 8.5 g/dL (13.0-17.5) Hematocrit 24.6 % (39.0-53.0) Mean Corpuscular Volume 89 fL (79-100) Mean Corpuscular Hemoglobin 31 pg (25-35) Mean Corpuscular Hemoglobin Concent 35 g/dL (31-37) Red Cell Distribution Width 13.1 % (11.5-14.5) Platelet Count 230 x10^3/uL (140-400) Neutrophils (%) (Auto) 85 % (31-73) Lymphocytes (%) (Auto) 3 % (24-48) Monocytes (%) (Auto) 12 % (0-9) Eosinophils (%) (Auto) 0 % (0-3) Basophils (%) (Auto) 0 % (0-3) Neutrophils # (Auto) 10.9 x10^3uL (1.8-7.7) Lymphocytes # (Auto) 0.4 x10^3/uL (1.0-4.8) Monocytes # (Auto) 1.5 x10^3/uL (0.0-1.1) Eosinophils # (Auto) 0.0 x10^3/uL (0.0-0.7) Basophils # (Auto) 0.1 x10^3/uL (0.0-0.2) Sodium Level 137 mmol/L (136-145) Potassium Level 3.8 mmol/L (3.5-5.1) Chloride Level 103 mmol/L (98-107) Carbon Dioxide Level 20 mmol/L (21-32) Anion Gap 14 (6-14) Blood Urea Nitrogen 32 mg/dL (8-26) Creatinine 2.9 mg/dL (0.7-1.3) Estimated GFR (Cockcroft-Gault) 23.1 Glucose Level 299 mg/dL (70-99) Calcium Level 8.5 mg/dL (8.5-10.1) Mycoplasma Serology (LAB) Negative (NEGATIVE) Urine Collection Type Unknown Urine Color Yellow Urine Clarity Clear Urine pH 5.0 Urine Specific [place] 1.020 Urine Protein 100 mg/dL (NEG-TRACE) Urine Glucose (UA) 100 mg/dL (NEG) Urine Ketones (Stick) Trace mg/dL (NEG) Urine Blood Negative (NEG) Urine Nitrite Negative (NEG) Urine Bilirubin Negative (NEG) Urine Urobilinogen Dipstick 0.2 mg/dL (0.2 mg/dL) Urine Leukocyte Esterase Moderate (NEG) Urine RBC 0 /HPF (0-2) Urine WBC >40 /HPF (0-4) Urine Squamous Epithelial Cells Few /LPF Urine Transitional Epithelial Cells Few /LPF Urine Amorphous Sediment Present /HPF Urine Bacteria 0 /HPF (0-FEW) Urine Hyaline Casts Moderate /HPF Urine Granular Casts Few /HPF Urine Waxy Casts Occasional /HPF Urine Mucus Mod /LPF Test 01/27/18 15:47 01/27/18 20:59 01/28/18 02:50 01/28/18 07:06 Glucose (Fingerstick) 263 mg/dL (70-99) 209 mg/dL (70-99) 233 mg/dL (70-99) White Blood Count 10.2 x10^3/uL (4.0-11.0) Red Blood Count 2.23 x10^6/uL (4.30-5.70) Hemoglobin 7.1 g/dL (13.0-17.5) Hematocrit 19.6 % (39.0-53.0) Mean Corpuscular Volume 88 fL (79-100) Mean Corpuscular Hemoglobin 32 pg (25-35) Mean Corpuscular Hemoglobin Concent 36 g/dL (31-37) Red Cell Distribution Width 13.4 % (11.5-14.5) Platelet Count 216 x10^3/uL (140-400) Neutrophils (%) (Auto) 72 % (31-73) Lymphocytes (%) (Auto) 15 % (24-48) Monocytes (%) (Auto) 12 % (0-9) Eosinophils (%) (Auto) 0 % (0-3) Basophils (%) (Auto) 1 % (0-3) Neutrophils # (Auto) 7.4 x10^3uL (1.8-7.7) Lymphocytes # (Auto) 1.5 x10^3/uL (1.0-4.8) Monocytes # (Auto) 1.2 x10^3/uL (0.0-1.1) Eosinophils # (Auto) 0.0 x10^3/uL (0.0-0.7) Basophils # (Auto) 0.0 x10^3/uL (0.0-0.2) Sodium Level 137 mmol/L (136-145) Potassium Level 3.7 mmol/L (3.5-5.1) Chloride Level 104 mmol/L (98-107) Carbon Dioxide Level 23 mmol/L (21-32) Anion Gap 10 (6-14) Blood Urea Nitrogen 37 mg/dL (8-26) Creatinine 3.7 mg/dL (0.7-1.3) Estimated GFR (Cockcroft-Gault) 17.5 Glucose Level 226 mg/dL (70-99) Calcium Level 8.7 mg/dL (8.5-10.1) Laboratory Tests Test 01/27/18 12:10 01/27/18 12:13 01/27/18 15:47 01/27/18 20:59 Urine Collection Type Unknown Urine Color Yellow Urine Clarity Clear Urine pH 5.0 Urine Specific [place] 1.020 Urine Protein 100 mg/dL (NEG-TRACE) Urine Glucose (UA) 100 mg/dL (NEG) Urine Ketones (Stick) Trace mg/dL (NEG) Urine Blood Negative (NEG) Urine Nitrite Negative (NEG) Urine Bilirubin Negative (NEG) Urine Urobilinogen Dipstick 0.2 mg/dL (0.2 mg/dL) Urine Leukocyte Esterase Moderate (NEG) Urine RBC 0 /HPF (0-2) Urine WBC >40 /HPF (0-4) Urine Squamous Epithelial Cells Few /LPF Urine Transitional Epithelial Cells Few /LPF Urine Amorphous Sediment Present /HPF Urine Bacteria 0 /HPF (0-FEW) Urine Hyaline Casts Moderate /HPF Urine Granular Casts Few /HPF Urine Waxy Casts Occasional /HPF Urine Mucus Mod /LPF Glucose (Fingerstick) 325 mg/dL (70-99) 263 mg/dL (70-99) 209 mg/dL (70-99) Test 01/28/18 02:50 01/28/18 07:06 White Blood Count 10.2 x10^3/uL (4.0-11.0) Red Blood Count 2.23 x10^6/uL (4.30-5.70) Hemoglobin 7.1 g/dL (13.0-17.5) Hematocrit 19.6 % (39.0-53.0) Mean Corpuscular Volume 88 fL (79-100) Mean Corpuscular Hemoglobin 32 pg (25-35) Mean Corpuscular Hemoglobin Concent 36 g/dL (31-37) Red Cell Distribution Width 13.4 % (11.5-14.5) Platelet Count 216 x10^3/uL (140-400) Neutrophils (%) (Auto) 72 % (31-73) Lymphocytes (%) (Auto) 15 % (24-48) Monocytes (%) (Auto) 12 % (0-9) Eosinophils (%) (Auto) 0 % (0-3) Basophils (%) (Auto) 1 % (0-3) Neutrophils # (Auto) 7.4 x10^3uL (1.8-7.7) Lymphocytes # (Auto) 1.5 x10^3/uL (1.0-4.8) Monocytes # (Auto) 1.2 x10^3/uL (0.0-1.1) Eosinophils # (Auto) 0.0 x10^3/uL (0.0-0.7) Basophils # (Auto) 0.0 x10^3/uL (0.0-0.2) Sodium Level 137 mmol/L (136-145) Potassium Level 3.7 mmol/L (3.5-5.1) Chloride Level 104 mmol/L (98-107) Carbon Dioxide Level 23 mmol/L (21-32) Anion Gap 10 (6-14) Blood Urea Nitrogen 37 mg/dL (8-26) Creatinine 3.7 mg/dL (0.7-1.3) Estimated GFR (Cockcroft-Gault) 17.5 Glucose Level 226 mg/dL (70-99) Calcium Level 8.7 mg/dL (8.5-10.1) Glucose (Fingerstick) 233 mg/dL (70-99) Microbiology 01/26/18 Blood Culture - Preliminary, Resulted NO GROWTH AFTER 1 DAY Medications Current Medications Sodium Chloride 1,000 ml @ 1,000 mls/hr Q1H IV Last administered on at 17:54; Start 01/23/18 at 17:21; Stop 01/23/18 at 18:20; Status DC Prochlorperazine Edisylate (Compazine) 10 mg 1X ONCE IV Last administered on 01/23/18at 17:55; Start 01/23/18 at 17:30; Stop 01/23/18 at 17:31; Status DC Diphenhydramine HCl (Benadryl) 25 mg 1X ONCE IVP Last administered on at 17:57; Start 01/23/18 at 17:30; Stop 01/23/18 at 17:31; Status DC Metoclopramide HCl (Reglan Vial) 10 mg 1X ONCE IV Last administered on at 19:24; Start 01/23/18 at 19:15; Stop 01/23/18 at 19:17; Status DC Diphenhydramine HCl (Benadryl) 25 mg 1X ONCE IVP Last administered on at 19:25; Start 01/23/18 at 19:15; Stop 01/23/18 at 19:17; Status DC Metoprolol Tartrate (Lopressor Vial) 5 mg 1X ONCE IVP Last administered on at 19:55; Start 01/23/18 at 19:45; Stop 01/23/18 at 19:46; Status DC Insulin Human Regular (HumuLIN R VIAL) 5 unit 1X ONCE IV Last administered on 01/23/18at 19:55; Start 01/23/18 at 19:45; Stop 01/23/18 at 19:46; Status DC Labetalol HCl (Normodyne Iv Push) 10 mg 1X ONCE IVP ; Start 01/23/18 at 20:30 ; Stop 01/23/18 at 20:31; Status DC Labetalol HCl (Normodyne Iv Push) 10 mg 1X ONCE IVP Last administered on 01/23at 22:29; Start 01/23/18 at 22:00; Stop 01/23/18 at 22:04; Status DC Ondansetron HCl (Zofran) 4 mg PRN Q8HRS PRN IV NAUSEA/VOMITING Last administered on 01/24/18at 00:16; Start 01/23/18 at 22:45; Stop 01/24/18 at 03 :05; Status DC Fentanyl Citrate (Fentanyl 2ml Vial) 50 mcg PRN Q2HR PRN IV PAIN Last administered on 01/24/18at 19:48; Start 01/23/18 at 22:45; Stop 01/24/18 at 22 :44; Status DC Sodium Chloride 1,000 ml @ 100 mls/hr Q10H IV Last administered on 01/24/18at 19:56; Start 01/23/18 at 22:37; Stop 01/24/18 at 22:36; Status DC Labetalol HCl (Normodyne Iv Push) 10 mg PRN Q30MIN PRN IVP SBP>180 Last administered on 01/24/18at 00:07; Start 01/23/18 at 22:45; Stop 01/24/18 at 00 :49; Status DC Insulin Human Lispro (HumaLOG) 0-5 UNITS TIDWMEALS SQ Last administered on at 09:30; Start 01/24/18 at 08:00 Dextrose (Dextrose 50%-Water Syringe) 12.5 gm PRN Q15MIN PRN IV SEE COMMENTS; Start 01/23/18 at 23:00 Labetalol HCl (Normodyne Iv Push) 20 mg PRN Q2HR PRN IVP HYPERTENSION, SEE COMMENTS Last administered on 01/24/18at 02:12; Start 01/24/18 at 00:45; Stop 01/25/18 at 14:21; Status DC Carvedilol (Coreg) 6.25 mg 1X ONCE PO ; Start 01/24/18 at 00:45; Stop at 00:49; Status DC Amlodipine Besylate (Norvasc) 5 mg 1X ONCE PO Last administered on 01/24/18at 01:00; Start 01/24/18 at 00:45; Stop 01/24/18 at 00:49; Status DC Oxycodone/ Acetaminophen (Percocet 5/325) 1 tab PRN Q4HRS PRN PO PAIN; Start 01/24/18 at 01:00 Carvedilol (Coreg) 12.5 mg 1X ONCE PO Last administered on 01/24/18at 01:05; Start 01/24/18 at 01:00; Stop 01/24/18 at 01:04; Status DC Nicardipine HCl 50 mg/Sodium Chloride 270 ml @ 32.4 mls/hr CONT PRN IV SEE I/ O RECORD Last administered on 01/27/18at 05:03; Start 01/24/18 at 03:00 Acetaminophen (Tylenol) 650 mg PRN Q6HRS PRN PEG MILD PAIN / TEMP; Start 01/24 at 03:15; Status Cancel Ondansetron HCl (Zofran) 4 mg PRN Q6HRS PRN IV NAUSEA/VOMITING, 1ST CHOICE Last administered on 01/26/18at 22:04; Start 01/24/18 at 03:15 Metoclopramide HCl (Reglan Vial) 5 mg PRN Q6HRS PRN IV NAUSEA/VOMITING, 3RD CHOICE Last administered on 01/25/18at 11:53; Start 01/24/18 at 03:15; Stop at 15:35; Status DC Prochlorperazine Edisylate (Compazine) 10 mg PRN Q6HRS PRN IV NAUSEA/VOMITING, 2ND CHOICE Last administered on 01/27/18at 06:31; Start 01/24/18 at 03:15 Pantoprazole Sodium (Protonix) 40 mg 1X ONCE PO Last administered on at 03:13; Start 01/24/18 at 03:30; Stop 01/24/18 at 03:31; Status DC Acetaminophen (Tylenol) 650 mg PRN Q6HRS PRN PO MIGRAINE HEADACHE Last administered on 01/27/18at 18:54; Start 01/24/18 at 03:15 Insulin Human Lispro (HumaLOG) 10 units 1X ONCE SQ Last administered on at 05:09; Start 01/24/18 at 05:00; Stop 01/24/18 at 05:02; Status DC Magnesium Sulfate/ Dextrose 100 ml @ 100 mls/hr 1X ONCE IV Last administered on 01/24/18at 12:01; Start 01/24/18 at 09:15; Stop 01/24/18 at 10:14; Status DC Metoprolol Tartrate (Lopressor Vial) 5 mg Q6HRS IVP Last administered on at 11:08; Start 01/24/18 at 11:00; Stop 01/25/18 at 11:41; Status DC Trimethobenzamide HCl (Tigan Im) 200 mg PRN Q6HRS PRN IM NAUSEA/VOMITING; Start 01/24/18 at 11:00 Morphine Sulfate (Morphine Sulfate) 2 mg PRN Q2HR PRN IV MODERATE PAIN; Start 01/24/18 at 11:00 Amlodipine Besylate (Norvasc) 5 mg DAILY PO Last administered on 01/28/18at 08: 58; Start 01/24/18 at 11:30 Clonidine HCl (Catapres) 0.2 mg BID PO Last administered on 01/28/18at 08:58; Start 01/24/18 at 11:30 Clopidogrel Bisulfate (Plavix) 75 mg DAILY PO Last administered on 01/28/18at 08:58; Start 01/24/18 at 11:30 Insulin Glargine (Lantus) 4 units DAILYWBKFT SQ ; Start 01/24/18 at 11:30; Stop 01/24/18 at 11:30; Status DC Insulin Glargine (Lantus) 4 units QHS SQ ; Start 01/24/18 at 21:00; Status UNV Carvedilol (Coreg) 25 mg BIDWMEALS PO Last administered on 01/28/18at 08:58; Start 01/24/18 at 17:00 Non-Formulary Medication (Hydrochlorothiazide (Hydrochlorothiazide Capsule ) ) 10 mg BID PO ; Start 01/24/18 at 21:00; Stop 01/24/18 at 21:00; Status DC Mycophenolate Mofetil (Cellcept) 250 mg BID PO Last administered on 01/24/18at 12:01; Start 01/24/18 at 12:00; Stop 01/24/18 at 15:58; Status DC Pantoprazole Sodium (Protonix) 40 mg DAILYAC PO ; Start 01/24/18 at 11:30; Stop 01/24/18 at 12:01; Status DC Tacrolimus (Prograf) 2 mg BID PO Last administered on 01/24/18at 12:02; Start 01/24/18 at 12:00; Stop 01/24/18 at 13:07; Status DC Insulin Glargine (Lantus) 4 units BID SQ Last administered on 01/28/18at 09:30 ; Start 01/24/18 at 11:30 Pantoprazole Sodium (PROTONIX VIAL for IV PUSH) 40 mg DAILYAC IVP Last administered on 01/25/18at 09:34; Start 01/24/18 at 13:00; Stop 01/25/18 at 15 :35; Status DC Tacrolimus (Prograf) 4 mg DAILY PO ; Start 01/25/18 at 09:00; Stop 01/25/18 at 09:00; Status DC Tacrolimus (Prograf) 3 mg QHS PO ; Start 01/24/18 at 21:00; Stop 01/24/18 at 21:00; Status DC Tacrolimus (Prograf) 2 mg DAILY SL Last administered on 01/27/18at 07:59; Start 01/25/18 at 09:00; Stop 01/27/18 at 17:15; Status DC Tacrolimus (Prograf) 1 mg QHS SL Last administered on 01/26/18at 21:33; Start 01/24/18 at 21:00; Stop 01/27/18 at 17:13; Status DC Sodium Chloride (Saline Mist Nasal) 1 bryan PRN Q1HR PRN NS NASAL CONGESTION; Start 01/24/18 at 15:00; Stop 01/24/18 at 17:28; Status DC Gabapentin (Neurontin) 100 mg TID PO Last administered on 01/28/18at 08:58; Start 01/24/18 at 16:00 Mycophenolate Mofetil 250 mg/ Dextrose 42 ml @ 21 mls/hr Q12H IV Last administered on 01/27/18at 09:33; Start 01/24/18 at 21:00; Stop 01/27/18 at 14 :11; Status DC Tacrolimus (Prograf) 0.5 mg QHS SL Last administered on 01/26/18at 21:33; Start 01/24/18 at 21:00; Stop 01/27/18 at 17:13; Status DC Sodium Chloride (Saline Mist Nasal) 1 bryan PRN Q1HR PRN NS NASAL CONGESTION; Start 01/24/18 at 17:30 Sodium Chloride 1,000 ml @ 75 mls/hr [id number] IV ; Start 01/25/18 at 07:30; Stop 01/27/18 at 15:58; Status DC Fentanyl Citrate (Fentanyl 2ml Vial) 50 mcg PRN Q3HRS PRN IV SEVERE PAIN Last administered on 01/26/18at 22:05; Start 01/25/18 at 09:15 Sodium Chloride 1,000 ml @ 75 mls/hr [id number] IV Last administered on at 09:35; Start 01/25/18 at 09:15; Stop 01/27/18 at 15:58; Status DC Metoprolol Tartrate (Lopressor Vial) 7.5 mg Q6HRS IVP ; Start 01/25/18 at 18:00 ; Stop 01/25/18 at 18:00; Status DC Clonidine HCl (Catapres Tts-3) 1 patch WEEKLY TD Last administered on at 14:02; Start 01/25/18 at 13:00 Labetalol HCl (Normodyne Iv Push) 20 mg PRN Q4HRS PRN IVP HYPERTENSION, SEE COMMENTS Last administered on 01/25/18at 14:05; Start 01/25/18 at 13:00 Ringer's Solution 1,000 ml @ 30 mls/hr Q24H IV ; Start 01/25/18 at 15:15; Status Cancel Propofol 20 ml @ As Directed STK-MED ONCE IV ; Start 01/25/18 at 15:07; Stop 01/25/18 at 15:08; Status DC Lidocaine HCl (Xylocaine-Mpf 1% 2ml Vial) 2 ml STK-MED ONCE .ROUTE ; Start at 15:07; Stop 01/25/18 at 15:08; Status DC Sodium Chloride 1,000 ml @ 0 mls/hr Q0M IV Last administered on 01/25/18at 15: 13; Start 01/25/18 at 15:15; Stop 01/25/18 at 15:43; Status DC Metoclopramide HCl (Reglan Vial) 5 mg Q6HRS IV Last administered on 01/28/18at 06:02; Start 01/25/18 at 18:00; Stop 01/28/18 at 09:59; Status DC Pantoprazole Sodium (PROTONIX VIAL for IV PUSH) 40 mg BIDAC IVP Last administered on 01/28/18at 08:59; Start 01/25/18 at 16:30; Stop 01/28/18 at 09 :59; Status DC Levofloxacin/ Dextrose 100 ml @ 100 mls/hr Q24H IV ; Start 01/26/18 at 08:30; Stop 01/26/18 at 09:32; Status DC Levalbuterol HCl (Xopenex) 1.25 mg PRN Q6HRS PRN NEB SHORTNESS OF BREATH Last administered on 01/27/18at 12:19; Start 01/26/18 at 08:45 Piperacillin Sod/ Tazobactam Sod (Zosyn Per Pharmacy) 1 each PRN DAILY PRN MC SEE COMMENTS; Start 01/26/18 at 10:00 Furosemide (Lasix) 40 mg DAILY IVP Last administered on 01/28/18at 08:59; Start 01/26/18 at 10:30 Piperacillin Sod/ Tazobactam Sod 3.375 gm/Sodium Chloride 50 ml @ 100 mls/hr Q6HRS IV Last administered on 01/28/18at 06:03; Start 01/26/18 at 11:00 Linezolid/Dextrose 300 ml @ 300 mls/hr Q12HR IV Last administered on at 08:59; Start 01/27/18 at 10:00 Mycophenolate Mofetil (Cellcept) 250 mg BID PO Last administered on 01/28/18at 08:57; Start 01/27/18 at 21:00 Tacrolimus (Prograf) 3 mg QHS PO Last administered on 01/27/18at 21:00; Start 01/27/18 at 21:00 Tacrolimus (Prograf) 4 mg DAILY PO Last administered on 01/28/18at 09:00; Start 01/28/18 at 09:00 Doxycycline Hyclate (Vibra-Tab) 100 mg BID PO Last administered on 01/28/18at 09:06; Start 01/28/18 at 09:00 Metoclopramide HCl (Reglan Vial) 5 mg QIDACHS IV ; Start 01/28/18 at 11:30; Stop 01/28/18 at 11:30; Status DC Pantoprazole Sodium (Protonix) 40 mg BIDAC PO ; Start 01/28/18 at 10:30 Metoclopramide HCl (Reglan Oral Solution) 5 mg QIDACHS PO ; Start 01/28/18 at 11:30 Active Scripts Active Oxycodone-Acetaminophen 5-325 (Oxycodone Hcl/Acetaminophen) 1 Each Tablet 1 Tab PO PRN Q4HRS PRN Reported Prograf (Tacrolimus) 1 Mg Capsule 3 Cap PO QHS Prograf (Tacrolimus) 1 Mg Capsule 4 Cap PO DAILY Lantus Solostar (Insulin Glargine,Hum.rec.anlog) 100 Unit/1 Ml Insuln.pen 4 Unit SQ DAILYWBKFT Lantus Solostar (Insulin Glargine,Hum.rec.anlog) 100 Unit/1 Ml Insuln.pen 4 Unit SQ QHS Amlodipine Besylate 5 Mg Tablet 5 Mg PO DAILY Clonidine Hcl 0.2 Mg Tablet 1 Tab PO BID Clopidogrel (Clopidogrel Bisulfate) 75 Mg Tablet 1 Tab PO DAILY Cellcept (Mycophenolate Mofetil) 250 Mg Capsule 1 Cap PO BID Pantoprazole Sodium 20 Mg Tablet.dr 20 Mg PO DAILY Hydrochlorothiazide Capsule (Hydrochlorothiazide) 12.5 Mg Capsule 10 Mg PO BID Carvedilol 25 Mg Tablet 2 Tab PO DAILYBFRSUP Vitals/I & O Vital Sign - Last 24 Hours 01/27/18 01/27/18 01/27/18 01/27/18 11:00 11:00 12:03 12:21 Temp 99.0 99.0 Pulse 122 119 117 Resp 18 20 18 B/P (MAP) 146/69 (94) 136/65 (88) 158/107 (124) Pulse Ox 93 92 89 93 O2 Delivery Venturi Mask Venturi Mask Venturi Mask Venturi Mask O2 Flow Rate 15.0 15.0 15.0 15.0 01/27/18 01/27/18 01/27/18 01/27/18 13:08 14:07 15:00 15:23 Temp 99.5 99.5 Pulse 110 104 110 107 Resp 18 18 20 18 B/P (MAP) 134/91 (105) 128/61 (83) 138/65 (89) 126/64 (84) Pulse Ox 95 95 93 95 O2 Delivery Venturi Mask Venturi Mask Venturi Mask Venturi Mask O2 Flow Rate 15.0 15.0 15.0 15.0 01/27/18 01/27/18 01/27/18 01/27/18 15:27 17:07 18:07 19:45 Pulse 106 98 97 Resp 18 18 B/P (MAP) 126/64 120/61 (80) 133/63 (86) Pulse Ox 92 96 O2 Delivery Venturi Mask Nasal Cannula Venturi Mask O2 Flow Rate 15.0 2.0 15.0 01/27/18 01/27/18 01/28/18 01/28/18 21:01 23:14 03:00 07:05 Temp 99.2 97.9 98.7 99.2 97.9 98.7 Pulse 90 79 92 90 Resp 20 20 20 B/P (MAP) 125/49 108/52 (70) 142/55 (84) 139/64 (89) Pulse Ox 100 98 99 O2 Delivery BiPAP/CPAP BiPAP/CPAP BiPAP/CPAP 01/28/18 01/28/18 01/28/18 08:58 08:58 08:58 Pulse 95 95 92 Intake and Output 01/27/18 01/27/18 01/28/18 15:00 23:00 07:00 Intake Total 350 ml 450 ml 60 ml Output Total 250 ml 250 ml 150 ml Balance 100 ml 200 ml -90 ml VIJAY MORILLO MD Jan 28, 2018 10:22
[2018-01-28] MEDS: PANTOPRAZOLE 40 MG TABLET.DR. PO SCH ×2 (10:30→17:19)
[2018-01-28 11:16] VITALS: BP 119/56
--- NOTE | 2018-01-28 11:28 | PDOC ---
SUBJECTIVE ROS Resp distress continues on Bipap Now on venti mask. Pulm following On IV Lasix as per Pulm . Bladder scan revealed 400+ Urine with PVR of 200 Whit[place] placed yesterday OBJECTIVE Vital Signs Vital Signs Date Time Temp Pulse Resp B/P (MAP) Pulse Ox O2 Delivery O2 Flow Rate FiO2 01/28/18 08:58 92 01/28/18 08:00 Venturi Mask 15.0 01/28/18 07:05 98.7 20 139/64 (89) 99 98.7 I & 0 Intake and Output 01/28/18 07:00 Intake Total 860 ml Output Total 650 ml Balance 210 ml Intake Oral 120 ml IV Total 740 ml Output Urine Total 650 ml PHYSICAL EXAM Physical Exam Gen-Mild distress + HEENT: OM moist, On vent Mask Neck No JVD LUNGS: upper rhonchi) Heart: S1S2, RRR Abdomen: Soft N/T, No graft tenderness , No Bruit Extremities: (bilateral BKA Neurology: alert, oriented, follow commands - Whitley + DIAGNOSIS/ASSESSMENT Assessment & Plan JAMAL - Etiology initially Dehydration sec to N/V Worsening renal function - ?ATN now sec to Infection-UTI/Pneumonia Ordered Renal US with Duplex - Only Renal US done, Order Doppler US No hydtonephrosis, UA- No micr hematuria , UA cw UTI No e/o Rejection clinically E-Lytes stable, Pt reports following with Dr. Taylor Greenfield , he also reports that his last appt at was September(his story keeps on changing He reports Compliance with Tx meds Recommend Transfer to if all involved agree UTI- UA ordered yesterday CW UTI, ID following , On ABx Anemia- Hgb has been dropping Admission Hgb may be high due to hemoconc Defer to primary /GI Hx of Renal Tx 2007 - Continue Immunosuppression Prograf level pending CKD STAGE 3 - Baseline Creat 1.5 Used to go to , hasnt seen Renal as OP for many years as no insurance He was scheduled to see Dr. Nguyen at [facility] in past but was Hospitalized Nausea/Vomiting- improved S/P EGD with esophagitis with possible gastroparesis. Per GI Ac Resp failure - this am Pulm on board- Recd IV Lasix, On venti mask CxR not reported as Congestion but ?Pneumonia+ DM II HTN- Better Cardiology managing Discussed with Pt about worsening renal function and possible transfer if accepted and RN at bedside Pt is agreeable either way and verbalized understanding about his declining renal function Ct scan abdomen 01/24 without Contrast 1. Severely atrophic and scarred bilateral kidneys. 2. Atrophic and scarred renal transplant in the right iliac fossa. 3. Mild perinephric edema related to a left iliac fossa renal transplant. 4. Borderline prostatic enlargement with distention of the urinary bladder. 5. Gastric distention with fluid. 6. Left basilar pulmonary infiltrates suggesting pneumonia Renal US - 01/27- No Hydronephrosis . COMMENT/RELEVANT DATA Meds Current Medications Medications (Trade) Dose Ordered Sig/Penelope Start Time Stop Time Status Last Admin Dose Admin Acetaminophen (Tylenol) 650 mg PRN Q6HRS PRN 01/24/18 03:15 01/27/18 18:54 650 MG Amlodipine Besylate (Norvasc) 5 mg DAILY 01/24/18 11:30 01/28/18 08:58 5 MG Carvedilol (Coreg) 25 mg BIDWMEALS 01/24/18 17:00 01/28/18 08:58 25 MG Cefepime HCl (Maxipime) 1 gm DAILY 01/28/18 12:00 Cefepime HCl 1 gm/ Dextrose 50 ml @ 100 mls/hr DAILY 01/29/18 09:00 UNV Clonidine HCl (Catapres Tts-3) 1 patch WEEKLY 01/25/18 13:00 01/25/18 14:02 1 PATCH Clonidine HCl (Catapres) 0.2 mg BID 01/24/18 11:30 01/28/18 08:58 0.2 MG Clopidogrel Bisulfate (Plavix) 75 mg DAILY 01/24/18 11:30 01/28/18 08:58 75 MG Dextrose (Dextrose 50%-Water Syringe) 12.5 gm PRN Q15MIN PRN 01/23/18 23:00 Diphenhydramine HCl (Benadryl) 25 mg 1X ONCE 01/23/18 19:15 01/23/18 19:17 DC 01/23/18 19:25 25 MG Doxycycline Hyclate (Vibra-Tab) 100 mg BID 01/28/18 09:00 01/28/18 10:52 DC 01/28/18 09:06 100 MG Fentanyl Citrate (Fentanyl 2ml Vial) 50 mcg PRN Q3HRS PRN 01/25/18 09:15 01/26/18 22:05 50 MCG Furosemide (Lasix) 40 mg DAILY 01/26/18 10:30 01/28/18 08:59 40 MG Gabapentin (Neurontin) 100 mg TID 01/24/18 16:00 01/28/18 08:58 100 MG Insulin Glargine (Lantus) 4 units BID 01/24/18 11:30 01/28/18 09:30 4 UNITS Insulin Human Lispro (HumaLOG) 10 units 1X ONCE 01/24/18 05:00 01/24/18 05:02 DC 01/24/18 05:09 10 UNITS Insulin Human Regular (HumuLIN R VIAL) 5 unit 1X ONCE 01/23/18 19:45 01/23/18 19:46 DC 01/23/18 19:55 5 UNIT Labetalol HCl (Normodyne Iv Push) 20 mg PRN Q4HRS PRN 01/25/18 13:00 01/25/18 14:05 20 MG Levalbuterol HCl (Xopenex) 1.25 mg PRN Q6HRS PRN 01/26/18 08:45 01/27/18 12:19 1.25 MG Levofloxacin/ Dextrose 100 ml @ 100 mls/hr Q24H 01/26/18 08:30 01/26/18 09:32 DC Lidocaine HCl (Xylocaine-Mpf 1% 2ml Vial) 2 ml STK-MED ONCE 01/25/18 15:07 01/25/18 15:08 DC Linezolid/Dextrose 300 ml @ 300 mls/hr Q12HR 01/27/18 10:00 01/28/18 08:59 300 MLS/HR Magnesium Sulfate/ Dextrose 100 ml @ 100 mls/hr 1X ONCE 01/24/18 09:15 01/24/18 10:14 DC 01/24/18 12:01 100 MLS/HR Metoclopramide HCl (Reglan Oral Solution) 5 mg QIDACHS 01/28/18 11:30 Metoclopramide HCl (Reglan Vial) 5 mg QIDACHS 01/28/18 11:30 01/28/18 11:30 DC Metoprolol Tartrate (Lopressor Vial) 7.5 mg Q6HRS 01/25/18 18:00 01/25/18 18:00 DC Morphine Sulfate (Morphine Sulfate) 2 mg PRN Q2HR PRN 01/24/18 11:00 Mycophenolate Mofetil (Cellcept) 250 mg BID 01/27/18 21:00 01/28/18 08:57 250 MG Mycophenolate Mofetil 250 mg/ Dextrose 42 ml @ 21 mls/hr Q12H 01/24/18 21:00 01/27/18 14:11 DC 01/27/18 09:33 21 MLS/HR Nicardipine HCl 50 mg/Sodium Chloride 270 ml @ 32.4 mls/hr CONT PRN 01/24/18 03:00 01/27/18 05:03 27 MLS/HR Non-Formulary Medication (Hydrochlorothiazide (Hydrochlorothiazide Capsule )) 10 mg BID 01/24/18 21:00 01/24/18 21:00 DC Ondansetron HCl (Zofran) 4 mg PRN Q6HRS PRN 01/24/18 03:15 01/26/18 22:04 4 MG Oxycodone/ Acetaminophen (Percocet 5/325) 1 tab PRN Q4HRS PRN 01/24/18 01:00 Pantoprazole Sodium (PROTONIX VIAL for IV PUSH) 40 mg BIDAC 01/25/18 16:30 01/28/18 09:59 DC 01/28/18 08:59 40 MG Pantoprazole Sodium (Protonix) 40 mg BIDAC 01/28/18 10:30 Piperacillin Sod/ Tazobactam Sod (Zosyn Per Pharmacy) 1 each PRN DAILY PRN 01/26/18 10:00 01/28/18 10:56 DC Piperacillin Sod/ Tazobactam Sod 3.375 gm/Sodium Chloride 50 ml @ 100 mls/hr Q6HRS 01/26/18 11:00 01/28/18 10:46 DC 01/28/18 06:03 100 MLS/HR Prochlorperazine Edisylate (Compazine) 10 mg PRN Q6HRS PRN 01/24/18 03:15 01/27/18 06:31 10 MG Propofol 20 ml @ As Directed STK-MED ONCE 01/25/18 15:07 01/25/18 15:08 DC Ringer's Solution 1,000 ml @ 30 mls/hr Q24H 01/25/18 15:15 Cancel Sodium Chloride 1,000 ml @ 0 mls/hr Q0M 01/25/18 15:15 01/25/18 15:43 DC 01/25/18 15:13 50 MLS/HR Sodium Chloride (Saline Mist Nasal) 1 bryan PRN Q1HR PRN 01/24/18 17:30 Tacrolimus (Prograf) 4 mg DAILY 01/28/18 09:00 01/28/18 09:00 4 MG Trimethobenzamide HCl (Tigan Im) 200 mg PRN Q6HRS PRN 01/24/18 11:00 Lab Laboratory Tests Test 01/27/18 12:10 01/27/18 12:13 01/27/18 15:47 01/27/18 20:59 Urine Collection Type Unknown Urine Color Yellow Urine Clarity Clear Urine pH 5.0 Urine Specific [place] 1.020 Urine Protein 100 mg/dL (NEG-TRACE) Urine Glucose (UA) 100 mg/dL (NEG) Urine Ketones (Stick) Trace mg/dL (NEG) Urine Blood Negative (NEG) Urine Nitrite Negative (NEG) Urine Bilirubin Negative (NEG) Urine Urobilinogen Dipstick 0.2 mg/dL (0.2 mg/dL) Urine Leukocyte Esterase Moderate (NEG) Urine RBC 0 /HPF (0-2) Urine WBC >40 /HPF (0-4) Urine Squamous Epithelial Cells Few /LPF Urine Transitional Epithelial Cells Few /LPF Urine Amorphous Sediment Present /HPF Urine Bacteria 0 /HPF (0-FEW) Urine Hyaline Casts Moderate /HPF Urine Granular Casts Few /HPF Urine Waxy Casts Occasional /HPF Urine Mucus Mod /LPF Glucose (Fingerstick) 325 mg/dL (70-99) 263 mg/dL (70-99) 209 mg/dL (70-99) Test 01/28/18 02:50 01/28/18 07:06 White Blood Count 10.2 x10^3/uL (4.0-11.0) Red Blood Count 2.23 x10^6/uL (4.30-5.70) Hemoglobin 7.1 g/dL (13.0-17.5) Hematocrit 19.6 % (39.0-53.0) Mean Corpuscular Volume 88 fL (79-100) Mean Corpuscular Hemoglobin 32 pg (25-35) Mean Corpuscular Hemoglobin Concent 36 g/dL (31-37) Red Cell Distribution Width 13.4 % (11.5-14.5) Platelet Count 216 x10^3/uL (140-400) Neutrophils (%) (Auto) 72 % (31-73) Lymphocytes (%) (Auto) 15 % (24-48) Monocytes (%) (Auto) 12 % (0-9) Eosinophils (%) (Auto) 0 % (0-3) Basophils (%) (Auto) 1 % (0-3) Neutrophils # (Auto) 7.4 x10^3uL (1.8-7.7) Lymphocytes # (Auto) 1.5 x10^3/uL (1.0-4.8) Monocytes # (Auto) 1.2 x10^3/uL (0.0-1.1) Eosinophils # (Auto) 0.0 x10^3/uL (0.0-0.7) Basophils # (Auto) 0.0 x10^3/uL (0.0-0.2) Sodium Level 137 mmol/L (136-145) Potassium Level 3.7 mmol/L (3.5-5.1) Chloride Level 104 mmol/L (98-107) Carbon Dioxide Level 23 mmol/L (21-32) Anion Gap 10 (6-14) Blood Urea Nitrogen 37 mg/dL (8-26) Creatinine 3.7 mg/dL (0.7-1.3) Estimated GFR (Cockcroft-Gault) 17.5 Glucose Level 226 mg/dL (70-99) Calcium Level 8.7 mg/dL (8.5-10.1) Glucose (Fingerstick) 233 mg/dL (70-99) Results All relevant outside records, renal labs, imaging studies, telemetry/EKG's were reviewed. BASSEM BUSBY MD Jan 28, 2018 11:28
[2018-01-28] MEDS ORDERED: METOCLOPRAMIDE HCL 10 MG/2 ML VIAL. IV SCH (11:30)
--- NOTE | 2018-01-28 12:11 | PDOC ---
PROGRESS NOTES Chief Complaint Chief Complaint JAMAL due to dehydration Hospital aquired pneumonia Uncontrolled HTN Cluster headache H/o renal transplant: 2007 H/o DM1/HLP: per PCP H/o CAD History of Present Illness History of Present Illness Pt seen and examined. Pt lying in bed on venti-mask. 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 Pt says he is feeling weak, but otherwise is feeling ok today. Vitals Vitals Vital Signs Date Time Temp Pulse Resp B/P (MAP) Pulse Ox O2 Delivery O2 Flow Rate FiO2 01/28/18 11:16 98.5 87 20 119/56 (77) 100 BiPAP/CPAP 98.5 01/28/18 08:00 15.0 Physical Exam Physical Exam GENERAL: The patient is layin in bed, axox3 HEENT: Left eye prosthesis. Oral cavity, pharynx pink, dry. No lesions seen. NECK: Supple. LUNGS: Congested. On ventimask 50% with 15 L O2, using Bipap at night HEART: S1 and S2. ABDOMEN: Bowel sounds active. Soft, nontender. gu connell in place with clear urine EXTREMITIES: [id number] amputation bilaterally. No cyanosis. SKIN: Warm, without rash. NEUROLOGIC: Alert and oriented x 3. General: Alert, Oriented X3, Cooperative, mild distress Heart: Regular rate, Normal S1, Normal S2 Lungs: Crackles Abdomen: Normal bowel sounds, Soft Extremities: No clubbing, No cyanosis, Other (bilateral BKAs) Skin: No rashes, No breakdown, No significant lesion Labs LABS Laboratory Tests Test 01/27/18 12:10 01/27/18 12:13 01/27/18 15:47 01/27/18 20:59 Urine Collection Type Unknown Urine Color Yellow Urine Clarity Clear Urine pH 5.0 Urine Specific Trosper 1.020 Urine Protein 100 mg/dL (NEG-TRACE) Urine Glucose (UA) 100 mg/dL (NEG) Urine Ketones (Stick) Trace mg/dL (NEG) Urine Blood Negative (NEG) Urine Nitrite Negative (NEG) Urine Bilirubin Negative (NEG) Urine Urobilinogen Dipstick 0.2 mg/dL (0.2 mg/dL) Urine Leukocyte Esterase Moderate (NEG) Urine RBC 0 /HPF (0-2) Urine WBC >40 /HPF (0-4) Urine Squamous Epithelial Cells Few /LPF Urine Transitional Epithelial Cells Few /LPF Urine Amorphous Sediment Present /HPF Urine Bacteria 0 /HPF (0-FEW) Urine Hyaline Casts Moderate /HPF Urine Granular Casts Few /HPF Urine Waxy Casts Occasional /HPF Urine Mucus Mod /LPF Glucose (Fingerstick) 325 mg/dL (70-99) 263 mg/dL (70-99) 209 mg/dL (70-99) Test 01/28/18 02:50 01/28/18 07:06 01/28/18 11:33 White Blood Count 10.2 x10^3/uL (4.0-11.0) Red Blood Count 2.23 x10^6/uL (4.30-5.70) Hemoglobin 7.1 g/dL (13.0-17.5) Hematocrit 19.6 % (39.0-53.0) Mean Corpuscular Volume 88 fL (79-100) Mean Corpuscular Hemoglobin 32 pg (25-35) Mean Corpuscular Hemoglobin Concent 36 g/dL (31-37) Red Cell Distribution Width 13.4 % (11.5-14.5) Platelet Count 216 x10^3/uL (140-400) Neutrophils (%) (Auto) 72 % (31-73) Lymphocytes (%) (Auto) 15 % (24-48) Monocytes (%) (Auto) 12 % (0-9) Eosinophils (%) (Auto) 0 % (0-3) Basophils (%) (Auto) 1 % (0-3) Neutrophils # (Auto) 7.4 x10^3uL (1.8-7.7) Lymphocytes # (Auto) 1.5 x10^3/uL (1.0-4.8) Monocytes # (Auto) 1.2 x10^3/uL (0.0-1.1) Eosinophils # (Auto) 0.0 x10^3/uL (0.0-0.7) Basophils # (Auto) 0.0 x10^3/uL (0.0-0.2) Sodium Level 137 mmol/L (136-145) Potassium Level 3.7 mmol/L (3.5-5.1) Chloride Level 104 mmol/L (98-107) Carbon Dioxide Level 23 mmol/L (21-32) Anion Gap 10 (6-14) Blood Urea Nitrogen 37 mg/dL (8-26) Creatinine 3.7 mg/dL (0.7-1.3) Estimated GFR (Cockcroft-Gault) 17.5 Glucose Level 226 mg/dL (70-99) Calcium Level 8.7 mg/dL (8.5-10.1) Glucose (Fingerstick) 233 mg/dL (70-99) 266 mg/dL (70-99) Review of Systems Review of Systems Pt denies nausea and MARTÍNEZ. Assessment and Plan Assessmemt and Plan Problems Medical Problems: (1) Hypertensive urgency Status: Acute (2) Intractable nausea and vomiting Status: Acute (3) Migraine headache Status: Acute Assessment: JAMAL due to dehydration Hospital aquired pneumonia Uncontrolled HTN Cluster headache H/o renal transplant: 2007 H/o DM1/HLP: per PCP H/o CAD Plan: Cardiac monitoring Consult hem/onc Monitor labs Home meds IV abx PT/OT Venti-mask at 50% on 15 L O2 Appreciate subspecialist input Advance diet as tolerated DVT ppx Comment Review of Relevant I have reviewed the following items nadiya (where applicable) has been applied. Labs Laboratory Tests Test 01/26/18 12:13 01/26/18 17:14 01/26/18 17:20 01/26/18 20:27 Glucose (Fingerstick) 224 mg/dL (70-99) 231 mg/dL (70-99) 230 mg/dL (70-99) Lactic Acid Level 0.7 mmol/L (0.4-2.0) Test 01/27/18 07:55 01/27/18 09:25 01/27/18 12:10 01/27/18 12:13 Glucose (Fingerstick) 307 mg/dL (70-99) 325 mg/dL (70-99) White Blood Count 13.0 x10^3/uL (4.0-11.0) Red Blood Count 2.77 x10^6/uL (4.30-5.70) Hemoglobin 8.5 g/dL (13.0-17.5) Hematocrit 24.6 % (39.0-53.0) Mean Corpuscular Volume 89 fL (79-100) Mean Corpuscular Hemoglobin 31 pg (25-35) Mean Corpuscular Hemoglobin Concent 35 g/dL (31-37) Red Cell Distribution Width 13.1 % (11.5-14.5) Platelet Count 230 x10^3/uL (140-400) Neutrophils (%) (Auto) 85 % (31-73) Lymphocytes (%) (Auto) 3 % (24-48) Monocytes (%) (Auto) 12 % (0-9) Eosinophils (%) (Auto) 0 % (0-3) Basophils (%) (Auto) 0 % (0-3) Neutrophils # (Auto) 10.9 x10^3uL (1.8-7.7) Lymphocytes # (Auto) 0.4 x10^3/uL (1.0-4.8) Monocytes # (Auto) 1.5 x10^3/uL (0.0-1.1) Eosinophils # (Auto) 0.0 x10^3/uL (0.0-0.7) Basophils # (Auto) 0.1 x10^3/uL (0.0-0.2) Sodium Level 137 mmol/L (136-145) Potassium Level 3.8 mmol/L (3.5-5.1) Chloride Level 103 mmol/L (98-107) Carbon Dioxide Level 20 mmol/L (21-32) Anion Gap 14 (6-14) Blood Urea Nitrogen 32 mg/dL (8-26) Creatinine 2.9 mg/dL (0.7-1.3) Estimated GFR (Cockcroft-Gault) 23.1 Glucose Level 299 mg/dL (70-99) Calcium Level 8.5 mg/dL (8.5-10.1) Mycoplasma Serology (LAB) Negative (NEGATIVE) Urine Collection Type Unknown Urine Color Yellow Urine Clarity Clear Urine pH 5.0 Urine Specific Trosper 1.020 Urine Protein 100 mg/dL (NEG-TRACE) Urine Glucose (UA) 100 mg/dL (NEG) Urine Ketones (Stick) Trace mg/dL (NEG) Urine Blood Negative (NEG) Urine Nitrite Negative (NEG) Urine Bilirubin Negative (NEG) Urine Urobilinogen Dipstick 0.2 mg/dL (0.2 mg/dL) Urine Leukocyte Esterase Moderate (NEG) Urine RBC 0 /HPF (0-2) Urine WBC >40 /HPF (0-4) Urine Squamous Epithelial Cells Few /LPF Urine Transitional Epithelial Cells Few /LPF Urine Amorphous Sediment Present /HPF Urine Bacteria 0 /HPF (0-FEW) Urine Hyaline Casts Moderate /HPF Urine Granular Casts Few /HPF Urine Waxy Casts Occasional /HPF Urine Mucus Mod /LPF Test 01/27/18 15:47 01/27/18 20:59 01/28/18 02:50 01/28/18 07:06 Glucose (Fingerstick) 263 mg/dL (70-99) 209 mg/dL (70-99) 233 mg/dL (70-99) White Blood Count 10.2 x10^3/uL (4.0-11.0) Red Blood Count 2.23 x10^6/uL (4.30-5.70) Hemoglobin 7.1 g/dL (13.0-17.5) Hematocrit 19.6 % (39.0-53.0) Mean Corpuscular Volume 88 fL (79-100) Mean Corpuscular Hemoglobin 32 pg (25-35) Mean Corpuscular Hemoglobin Concent 36 g/dL (31-37) Red Cell Distribution Width 13.4 % (11.5-14.5) Platelet Count 216 x10^3/uL (140-400) Neutrophils (%) (Auto) 72 % (31-73) Lymphocytes (%) (Auto) 15 % (24-48) Monocytes (%) (Auto) 12 % (0-9) Eosinophils (%) (Auto) 0 % (0-3) Basophils (%) (Auto) 1 % (0-3) Neutrophils # (Auto) 7.4 x10^3uL (1.8-7.7) Lymphocytes # (Auto) 1.5 x10^3/uL (1.0-4.8) Monocytes # (Auto) 1.2 x10^3/uL (0.0-1.1) Eosinophils # (Auto) 0.0 x10^3/uL (0.0-0.7) Basophils # (Auto) 0.0 x10^3/uL (0.0-0.2) Sodium Level 137 mmol/L (136-145) Potassium Level 3.7 mmol/L (3.5-5.1) Chloride Level 104 mmol/L (98-107) Carbon Dioxide Level 23 mmol/L (21-32) Anion Gap 10 (6-14) Blood Urea Nitrogen 37 mg/dL (8-26) Creatinine 3.7 mg/dL (0.7-1.3) Estimated GFR (Cockcroft-Gault) 17.5 Glucose Level 226 mg/dL (70-99) Calcium Level 8.7 mg/dL (8.5-10.1) Test 01/28/18 11:33 Glucose (Fingerstick) 266 mg/dL (70-99) Laboratory Tests Test 01/27/18 12:10 01/27/18 12:13 01/27/18 15:47 01/27/18 20:59 Urine Collection Type Unknown Urine Color Yellow Urine Clarity Clear Urine pH 5.0 Urine Specific Trosper 1.020 Urine Protein 100 mg/dL (NEG-TRACE) Urine Glucose (UA) 100 mg/dL (NEG) Urine Ketones (Stick) Trace mg/dL (NEG) Urine Blood Negative (NEG) Urine Nitrite Negative (NEG) Urine Bilirubin Negative (NEG) Urine Urobilinogen Dipstick 0.2 mg/dL (0.2 mg/dL) Urine Leukocyte Esterase Moderate (NEG) Urine RBC 0 /HPF (0-2) Urine WBC >40 /HPF (0-4) Urine Squamous Epithelial Cells Few /LPF Urine Transitional Epithelial Cells Few /LPF Urine Amorphous Sediment Present /HPF Urine Bacteria 0 /HPF (0-FEW) Urine Hyaline Casts Moderate /HPF Urine Granular Casts Few /HPF Urine Waxy Casts Occasional /HPF Urine Mucus Mod /LPF Glucose (Fingerstick) 325 mg/dL (70-99) 263 mg/dL (70-99) 209 mg/dL (70-99) Test 01/28/18 02:50 01/28/18 07:06 01/28/18 11:33 White Blood Count 10.2 x10^3/uL (4.0-11.0) Red Blood Count 2.23 x10^6/uL (4.30-5.70) Hemoglobin 7.1 g/dL (13.0-17.5) Hematocrit 19.6 % (39.0-53.0) Mean Corpuscular Volume 88 fL (79-100) Mean Corpuscular Hemoglobin 32 pg (25-35) Mean Corpuscular Hemoglobin Concent 36 g/dL (31-37) Red Cell Distribution Width 13.4 % (11.5-14.5) Platelet Count 216 x10^3/uL (140-400) Neutrophils (%) (Auto) 72 % (31-73) Lymphocytes (%) (Auto) 15 % (24-48) Monocytes (%) (Auto) 12 % (0-9) Eosinophils (%) (Auto) 0 % (0-3) Basophils (%) (Auto) 1 % (0-3) Neutrophils # (Auto) 7.4 x10^3uL (1.8-7.7) Lymphocytes # (Auto) 1.5 x10^3/uL (1.0-4.8) Monocytes # (Auto) 1.2 x10^3/uL (0.0-1.1) Eosinophils # (Auto) 0.0 x10^3/uL (0.0-0.7) Basophils # (Auto) 0.0 x10^3/uL (0.0-0.2) Sodium Level 137 mmol/L (136-145) Potassium Level 3.7 mmol/L (3.5-5.1) Chloride Level 104 mmol/L (98-107) Carbon Dioxide Level 23 mmol/L (21-32) Anion Gap 10 (6-14) Blood Urea Nitrogen 37 mg/dL (8-26) Creatinine 3.7 mg/dL (0.7-1.3) Estimated GFR (Cockcroft-Gault) 17.5 Glucose Level 226 mg/dL (70-99) Calcium Level 8.7 mg/dL (8.5-10.1) Glucose (Fingerstick) 233 mg/dL (70-99) 266 mg/dL (70-99) Microbiology 01/26/18 Blood Culture - Preliminary, Resulted NO GROWTH AFTER 1 DAY Medications Current Medications Sodium Chloride 1,000 ml @ 1,000 mls/hr Q1H IV Last administered on at 17:54; Start 01/23/18 at 17:21; Stop 01/23/18 at 18:20; Status DC Prochlorperazine Edisylate (Compazine) 10 mg 1X ONCE IV Last administered on 01/23/18at 17:55; Start 01/23/18 at 17:30; Stop 01/23/18 at 17:31; Status DC Diphenhydramine HCl (Benadryl) 25 mg 1X ONCE IVP Last administered on at 17:57; Start 01/23/18 at 17:30; Stop 01/23/18 at 17:31; Status DC Metoclopramide HCl (Reglan Vial) 10 mg 1X ONCE IV Last administered on at 19:24; Start 01/23/18 at 19:15; Stop 01/23/18 at 19:17; Status DC Diphenhydramine HCl (Benadryl) 25 mg 1X ONCE IVP Last administered on at 19:25; Start 01/23/18 at 19:15; Stop 01/23/18 at 19:17; Status DC Metoprolol Tartrate (Lopressor Vial) 5 mg 1X ONCE IVP Last administered on at 19:55; Start 01/23/18 at 19:45; Stop 01/23/18 at 19:46; Status DC Insulin Human Regular (HumuLIN R VIAL) 5 unit 1X ONCE IV Last administered on 01/23/18at 19:55; Start 01/23/18 at 19:45; Stop 01/23/18 at 19:46; Status DC Labetalol HCl (Normodyne Iv Push) 10 mg 1X ONCE IVP ; Start 01/23/18 at 20:30 ; Stop 01/23/18 at 20:31; Status DC Labetalol HCl (Normodyne Iv Push) 10 mg 1X ONCE IVP Last administered on 01/23at 22:29; Start 01/23/18 at 22:00; Stop 01/23/18 at 22:04; Status DC Ondansetron HCl (Zofran) 4 mg PRN Q8HRS PRN IV NAUSEA/VOMITING Last administered on 01/24/18at 00:16; Start 01/23/18 at 22:45; Stop 01/24/18 at 03 :05; Status DC Fentanyl Citrate (Fentanyl 2ml Vial) 50 mcg PRN Q2HR PRN IV PAIN Last administered on 01/24/18at 19:48; Start 01/23/18 at 22:45; Stop 01/24/18 at 22 :44; Status DC Sodium Chloride 1,000 ml @ 100 mls/hr Q10H IV Last administered on 01/24/18at 19:56; Start 01/23/18 at 22:37; Stop 01/24/18 at 22:36; Status DC Labetalol HCl (Normodyne Iv Push) 10 mg PRN Q30MIN PRN IVP SBP>180 Last administered on 01/24/18at 00:07; Start 01/23/18 at 22:45; Stop 01/24/18 at 00 :49; Status DC Insulin Human Lispro (HumaLOG) 0-5 UNITS TIDWMEALS SQ Last administered on at 09:30; Start 01/24/18 at 08:00 Dextrose (Dextrose 50%-Water Syringe) 12.5 gm PRN Q15MIN PRN IV SEE COMMENTS; Start 01/23/18 at 23:00 Labetalol HCl (Normodyne Iv Push) 20 mg PRN Q2HR PRN IVP HYPERTENSION, SEE COMMENTS Last administered on 01/24/18at 02:12; Start 01/24/18 at 00:45; Stop 01/25/18 at 14:21; Status DC Carvedilol (Coreg) 6.25 mg 1X ONCE PO ; Start 01/24/18 at 00:45; Stop at 00:49; Status DC Amlodipine Besylate (Norvasc) 5 mg 1X ONCE PO Last administered on 01/24/18at 01:00; Start 01/24/18 at 00:45; Stop 01/24/18 at 00:49; Status DC Oxycodone/ Acetaminophen (Percocet 5/325) 1 tab PRN Q4HRS PRN PO PAIN; Start 01/24/18 at 01:00 Carvedilol (Coreg) 12.5 mg 1X ONCE PO Last administered on 01/24/18at 01:05; Start 01/24/18 at 01:00; Stop 01/24/18 at 01:04; Status DC Nicardipine HCl 50 mg/Sodium Chloride 270 ml @ 32.4 mls/hr CONT PRN IV SEE I/ O RECORD Last administered on 01/27/18at 05:03; Start 01/24/18 at 03:00 Acetaminophen (Tylenol) 650 mg PRN Q6HRS PRN PEG MILD PAIN / TEMP; Start 01/24 at 03:15; Status Cancel Ondansetron HCl (Zofran) 4 mg PRN Q6HRS PRN IV NAUSEA/VOMITING, 1ST CHOICE Last administered on 01/26/18at 22:04; Start 01/24/18 at 03:15 Metoclopramide HCl (Reglan Vial) 5 mg PRN Q6HRS PRN IV NAUSEA/VOMITING, 3RD CHOICE Last administered on 01/25/18at 11:53; Start 01/24/18 at 03:15; Stop at 15:35; Status DC Prochlorperazine Edisylate (Compazine) 10 mg PRN Q6HRS PRN IV NAUSEA/VOMITING, 2ND CHOICE Last administered on 01/27/18at 06:31; Start 01/24/18 at 03:15 Pantoprazole Sodium (Protonix) 40 mg 1X ONCE PO Last administered on at 03:13; Start 01/24/18 at 03:30; Stop 01/24/18 at 03:31; Status DC Acetaminophen (Tylenol) 650 mg PRN Q6HRS PRN PO MIGRAINE HEADACHE Last administered on 01/27/18at 18:54; Start 01/24/18 at 03:15 Insulin Human Lispro (HumaLOG) 10 units 1X ONCE SQ Last administered on at 05:09; Start 01/24/18 at 05:00; Stop 01/24/18 at 05:02; Status DC Magnesium Sulfate/ Dextrose 100 ml @ 100 mls/hr 1X ONCE IV Last administered on 01/24/18at 12:01; Start 01/24/18 at 09:15; Stop 01/24/18 at 10:14; Status DC Metoprolol Tartrate (Lopressor Vial) 5 mg Q6HRS IVP Last administered on at 11:08; Start 01/24/18 at 11:00; Stop 01/25/18 at 11:41; Status DC Trimethobenzamide HCl (Tigan Im) 200 mg PRN Q6HRS PRN IM NAUSEA/VOMITING; Start 01/24/18 at 11:00 Morphine Sulfate (Morphine Sulfate) 2 mg PRN Q2HR PRN IV MODERATE PAIN; Start 01/24/18 at 11:00 Amlodipine Besylate (Norvasc) 5 mg DAILY PO Last administered on 01/28/18at 08: 58; Start 01/24/18 at 11:30 Clonidine HCl (Catapres) 0.2 mg BID PO Last administered on 01/28/18at 08:58; Start 01/24/18 at 11:30 Clopidogrel Bisulfate (Plavix) 75 mg DAILY PO Last administered on 01/28/18at 08:58; Start 01/24/18 at 11:30 Insulin Glargine (Lantus) 4 units DAILYWBKFT SQ ; Start 01/24/18 at 11:30; Stop 01/24/18 at 11:30; Status DC Insulin Glargine (Lantus) 4 units QHS SQ ; Start 01/24/18 at 21:00; Status UNV Carvedilol (Coreg) 25 mg BIDWMEALS PO Last administered on 01/28/18at 08:58; Start 01/24/18 at 17:00 Non-Formulary Medication (Hydrochlorothiazide (Hydrochlorothiazide Capsule ) ) 10 mg BID PO ; Start 01/24/18 at 21:00; Stop 01/24/18 at 21:00; Status DC Mycophenolate Mofetil (Cellcept) 250 mg BID PO Last administered on 01/24/18at 12:01; Start 01/24/18 at 12:00; Stop 01/24/18 at 15:58; Status DC Pantoprazole Sodium (Protonix) 40 mg DAILYAC PO ; Start 01/24/18 at 11:30; Stop 01/24/18 at 12:01; Status DC Tacrolimus (Prograf) 2 mg BID PO Last administered on 01/24/18at 12:02; Start 01/24/18 at 12:00; Stop 01/24/18 at 13:07; Status DC Insulin Glargine (Lantus) 4 units BID SQ Last administered on 01/28/18at 09:30 ; Start 01/24/18 at 11:30 Pantoprazole Sodium (PROTONIX VIAL for IV PUSH) 40 mg DAILYAC IVP Last administered on 01/25/18at 09:34; Start 01/24/18 at 13:00; Stop 01/25/18 at 15 :35; Status DC Tacrolimus (Prograf) 4 mg DAILY PO ; Start 01/25/18 at 09:00; Stop 01/25/18 at 09:00; Status DC Tacrolimus (Prograf) 3 mg QHS PO ; Start 01/24/18 at 21:00; Stop 01/24/18 at 21:00; Status DC Tacrolimus (Prograf) 2 mg DAILY SL Last administered on 01/27/18at 07:59; Start 01/25/18 at 09:00; Stop 01/27/18 at 17:15; Status DC Tacrolimus (Prograf) 1 mg QHS SL Last administered on 01/26/18at 21:33; Start 01/24/18 at 21:00; Stop 01/27/18 at 17:13; Status DC Sodium Chloride (Saline Mist Nasal) 1 bryan PRN Q1HR PRN NS NASAL CONGESTION; Start 01/24/18 at 15:00; Stop 01/24/18 at 17:28; Status DC Gabapentin (Neurontin) 100 mg TID PO Last administered on 01/28/18at 08:58; Start 01/24/18 at 16:00 Mycophenolate Mofetil 250 mg/ Dextrose 42 ml @ 21 mls/hr Q12H IV Last administered on 01/27/18at 09:33; Start 01/24/18 at 21:00; Stop 01/27/18 at 14 :11; Status DC Tacrolimus (Prograf) 0.5 mg QHS SL Last administered on 01/26/18at 21:33; Start 01/24/18 at 21:00; Stop 01/27/18 at 17:13; Status DC Sodium Chloride (Saline Mist Nasal) 1 bryan PRN Q1HR PRN NS NASAL CONGESTION; Start 01/24/18 at 17:30 Sodium Chloride 1,000 ml @ 75 mls/hr [id number] IV ; Start 01/25/18 at 07:30; Stop 01/27/18 at 15:58; Status DC Fentanyl Citrate (Fentanyl 2ml Vial) 50 mcg PRN Q3HRS PRN IV SEVERE PAIN Last administered on 01/26/18at 22:05; Start 01/25/18 at 09:15 Sodium Chloride 1,000 ml @ 75 mls/hr [id number] IV Last administered on at 09:35; Start 01/25/18 at 09:15; Stop 01/27/18 at 15:58; Status DC Metoprolol Tartrate (Lopressor Vial) 7.5 mg Q6HRS IVP ; Start 01/25/18 at 18:00 ; Stop 01/25/18 at 18:00; Status DC Clonidine HCl (Catapres Tts-3) 1 patch WEEKLY TD Last administered on at 14:02; Start 01/25/18 at 13:00 Labetalol HCl (Normodyne Iv Push) 20 mg PRN Q4HRS PRN IVP HYPERTENSION, SEE COMMENTS Last administered on 01/25/18at 14:05; Start 01/25/18 at 13:00 Ringer's Solution 1,000 ml @ 30 mls/hr Q24H IV ; Start 01/25/18 at 15:15; Status Cancel Propofol 20 ml @ As Directed STK-MED ONCE IV ; Start 01/25/18 at 15:07; Stop 01/25/18 at 15:08; Status DC Lidocaine HCl (Xylocaine-Mpf 1% 2ml Vial) 2 ml STK-MED ONCE .ROUTE ; Start at 15:07; Stop 01/25/18 at 15:08; Status DC Sodium Chloride 1,000 ml @ 0 mls/hr Q0M IV Last administered on 01/25/18at 15: 13; Start 01/25/18 at 15:15; Stop 01/25/18 at 15:43; Status DC Metoclopramide HCl (Reglan Vial) 5 mg Q6HRS IV Last administered on 01/28/18at 06:02; Start 01/25/18 at 18:00; Stop 01/28/18 at 09:59; Status DC Pantoprazole Sodium (PROTONIX VIAL for IV PUSH) 40 mg BIDAC IVP Last administered on 01/28/18at 08:59; Start 01/25/18 at 16:30; Stop 01/28/18 at 09 :59; Status DC Levofloxacin/ Dextrose 100 ml @ 100 mls/hr Q24H IV ; Start 01/26/18 at 08:30; Stop 01/26/18 at 09:32; Status DC Levalbuterol HCl (Xopenex) 1.25 mg PRN Q6HRS PRN NEB SHORTNESS OF BREATH Last administered on 01/27/18at 12:19; Start 01/26/18 at 08:45 Piperacillin Sod/ Tazobactam Sod (Zosyn Per Pharmacy) 1 each PRN DAILY PRN MC SEE COMMENTS; Start 01/26/18 at 10:00; Stop 01/28/18 at 10:56; Status DC Furosemide (Lasix) 40 mg DAILY IVP Last administered on 01/28/18at 08:59; Start 01/26/18 at 10:30 Piperacillin Sod/ Tazobactam Sod 3.375 gm/Sodium Chloride 50 ml @ 100 mls/hr Q6HRS IV Last administered on 01/28/18at 06:03; Start 01/26/18 at 11:00; Stop 01/28/18 at 10:46; Status DC Linezolid/Dextrose 300 ml @ 300 mls/hr Q12HR IV Last administered on at 08:59; Start 01/27/18 at 10:00 Mycophenolate Mofetil (Cellcept) 250 mg BID PO Last administered on 01/28/18at 08:57; Start 01/27/18 at 21:00 Tacrolimus (Prograf) 3 mg QHS PO Last administered on 01/27/18at 21:00; Start 01/27/18 at 21:00 Tacrolimus (Prograf) 4 mg DAILY PO Last administered on 01/28/18at 09:00; Start 01/28/18 at 09:00 Doxycycline Hyclate (Vibra-Tab) 100 mg BID PO Last administered on 01/28/18at 09:06; Start 01/28/18 at 09:00; Stop 01/28/18 at 10:52; Status DC Metoclopramide HCl (Reglan Vial) 5 mg QIDACHS IV ; Start 01/28/18 at 11:30; Stop 01/28/18 at 11:30; Status DC Pantoprazole Sodium (Protonix) 40 mg BIDAC PO ; Start 01/28/18 at 10:30 Metoclopramide HCl (Reglan Oral Solution) 5 mg QIDACHS PO ; Start 01/28/18 at 11:30 Cefepime HCl 1 gm/ Dextrose 50 ml @ 100 mls/hr DAILY IV ; Start 01/29/18 at 09 :00; Status UNV Cefepime HCl (Maxipime) 1 gm DAILY IVP ; Start 01/28/18 at 12:00 Active Scripts Active Oxycodone-Acetaminophen 5-325 (Oxycodone Hcl/Acetaminophen) 1 Each Tablet 1 Tab PO PRN Q4HRS PRN Reported Prograf (Tacrolimus) 1 Mg Capsule 3 Cap PO QHS Prograf (Tacrolimus) 1 Mg Capsule 4 Cap PO DAILY Lantus Solostar (Insulin Glargine,Hum.rec.anlog) 100 Unit/1 Ml Insuln.pen 4 Unit SQ DAILYWBKFT Lantus Solostar (Insulin Glargine,Hum.rec.anlog) 100 Unit/1 Ml Insuln.pen 4 Unit SQ QHS Amlodipine Besylate 5 Mg Tablet 5 Mg PO DAILY Clonidine Hcl 0.2 Mg Tablet 1 Tab PO BID Clopidogrel (Clopidogrel Bisulfate) 75 Mg Tablet 1 Tab PO DAILY Cellcept (Mycophenolate Mofetil) 250 Mg Capsule 1 Cap PO BID Pantoprazole Sodium 20 Mg Tablet.dr 20 Mg PO DAILY Hydrochlorothiazide Capsule (Hydrochlorothiazide) 12.5 Mg Capsule 10 Mg PO BID Carvedilol 25 Mg Tablet 2 Tab PO DAILYBFRSUP Vitals/I & O Vital Sign - Last 24 Hours 01/27/18 01/27/18 01/27/18 01/27/18 12:21 13:08 14:07 15:00 Temp 99.5 99.5 Pulse 110 104 110 Resp 18 18 20 B/P (MAP) 134/91 (105) 128/61 (83) 138/65 (89) Pulse Ox 93 95 95 93 O2 Delivery Venturi Mask Venturi Mask Venturi Mask Venturi Mask O2 Flow Rate 15.0 15.0 15.0 15.0 01/27/18 01/27/18 01/27/18 01/27/18 15:23 15:27 17:07 18:07 Pulse 107 106 98 97 Resp 18 18 18 B/P (MAP) 126/64 (84) 126/64 120/61 (80) 133/63 (86) Pulse Ox 95 92 96 O2 Delivery Venturi Mask Venturi Mask Nasal Cannula O2 Flow Rate 15.0 15.0 2.0 01/27/18 01/27/18 01/27/18 01/28/18 19:45 21:01 23:14 03:00 Temp 99.2 97.9 99.2 97.9 Pulse 90 79 92 Resp 20 20 B/P (MAP) 125/49 108/52 (70) 142/55 (84) Pulse Ox 100 98 O2 Delivery Venturi Mask BiPAP/CPAP BiPAP/CPAP O2 Flow Rate 15.0 01/28/18 01/28/18 01/28/18 01/28/18 07:05 08:00 08:58 08:58 Temp 98.7 98.7 Pulse 90 95 95 Resp 20 B/P (MAP) 139/64 (89) Pulse Ox 99 O2 Delivery BiPAP/CPAP Venturi Mask O2 Flow Rate 15.0 01/28/18 01/28/18 08:58 11:16 Temp 98.5 98.5 Pulse 92 87 Resp 20 B/P (MAP) 119/56 (77) Pulse Ox 100 O2 Delivery BiPAP/CPAP Intake and Output 01/27/18 01/27/18 01/28/18 15:00 23:00 07:00 Intake Total 350 ml 450 ml 60 ml Output Total 250 ml 250 ml 150 ml Balance 100 ml 200 ml -90 ml NYASIA SHEPPARD III DO Jan 28, 2018 12:11
[2018-01-28] MEDS: METOCLOPRAMIDE ORAL SOLN 10 MG/10 ML SOLUTION. PO SCH ×3 (13:08→20:51)
[2018-01-28] MEDS: CEFEPIME HCL IV Push 1 GM VIAL. IVP SCH (13:12)
[2018-01-28 14:52] VITALS: BP 141/61
--- NOTE | 2018-01-28 17:09 | RAD ---
Ultrasound of left lower quadrant renal transplant HISTORY: JAMAL FINDINGS: The renal transplant in left lower quadrant measures 11.9 cm longitudinal by 5.5 cm AP by 5.5 cm transverse. Renal artery resistive indices to the transplant range from 0.85-0.89. No hydronephrosis. No evidence of renal lesion. The aorta is patent proximally. Mid and distal aorta are not visualized. IMPRESSION: No significant sonographic abnormality of the left lower quadrant renal transplant. Electronically signed by: Fahad Portillo MD (01/28/2018 5:06 PM) [id number]
[2018-01-28 19:10] VITALS: BP 131/60
[2018-01-28 23:35] VITALS: BP 153/54
--- NOTE | 2018-01-28 23:37 | CONS ---
DATE OF CONSULTATION: 01/28/2018 REQUESTING PHYSICIAN: Dr. Orlando Gonzalez. REASON FOR CONSULTATION: Anemia. HISTORY OF PRESENT ILLNESS: The patient is a 52-year-old gentleman who was admitted to [facility] on 01/23/2018 with complaints of nausea, vomiting, diarrhea and he was noted to have uncontrolled hypertension and dehydration. He subsequently developed dyspnea, hypoxia, fever and chills. Chest x-ray revealed bilateral pulmonary infiltrates compatible with CHF and a left lower lobe pneumonia with effusion. He was given antibiotics. The patient also has a history of end-stage renal disease, status post failed renal transplant in 2003 and a second transplant was performed in 2007. He is on CellCept and Prograf. The patient has chronic kidney disease. However, he has developed worsening renal failure during this admission. His creatinine has gone up from 2.3 on 01/23/2018 up to 3.7 on 01/28/2018. Nephrology has been following. He is also noted to have worsening anemia with a hemoglobin of 12.5 at the time of admission on 03/25/2018, down to 7.1 on 01/28/2018. Reticulocyte count is normal at 1.7. I was asked to see the patient for further evaluation of anemia. The patient is aware of chronic anemia due to renal failure. He denies hematemesis, melena, hematochezia. No hemoptysis or hematuria. No loss of weight or loss of appetite. PAST MEDICAL HISTORY: History of renal transplant in 2007 and he is on CellCept and Prograf, peripheral vascular disease, coronary artery disease, diabetes mellitus, hypertension, osteoarthritis, hyperlipidemia, GERD, left prosthetic eye. PAST SURGICAL HISTORY: Below-knee amputation bilaterally. Renal transplant in 2003, which failed and it was again repeated in 2007. FAMILY HISTORY: Positive for heart disease and diabetes. SOCIAL HISTORY: He lives at home with his mother. No smoking or alcohol abuse. He wears leg prosthesis for mobility. REVIEW OF SYSTEMS: A 12-point review of system was performed. Pertinent positives are mentioned in the history of present illness. Rest of the system review is negative. PHYSICAL EXAMINATION: GENERAL APPEARANCE: The patient is a 52-year-old gentleman who is in no acute cardiorespiratory distress. VITAL SIGNS: Blood pressure 141/61, temperature 99 degrees. HEENT: Head: Atraumatic, normocephalic. Eyes: No icterus. NECK: Supple. CHEST: Bilaterally symmetrical. HEART: S1, S2 normal. ABDOMEN: Soft, nontender. CENTRAL NERVOUS SYSTEM: No focal deficits. LYMPHATICS: No lymphadenopathy. SKIN: No rashes. PSYCHOLOGIC: Mood and affect are appropriate. MUSCULOSKELETAL: No joint effusions. LYMPHATICS: No lymphadenopathy. LABORATORY DATA: From 01/28/2018, WBC 10.2, hemoglobin 7.1, platelet count 216. Reticulocyte count 1.7, creatinine 3.7. IMPRESSION AND PLAN: 1. Anemia, progressively worse. This is multifactorial including underlying chronic kidney disease, worsening renal failure, pneumonia, congestive heart failure, antibiotics. His reticulocyte count is normal at 1.7 and hence I do not suspect hemolysis. There is no evidence of bleeding. I would continue to monitor hemoglobin and transfuse if the hemoglobin drops to below 7. 2. Chronic kidney disease with worsening renal failure. Appreciate Nephrology consultation. The patient has a renal transplant in 2007 and he is on CellCept and Prograf. Transferred to [facility] is being considered. 3. Pneumonia. Appreciate ID and Pulmonary consultation. LUDIN GARCIA MD DR: PAM/silviano JOB#: [id number] / [id number]
[2018-01-29 03:40] VITALS: BP 161/65
[2018-01-29] MEDS ORDERED: INSULIN LISPRO 300 UNITS/3 ML INSULN.PEN. SQ ONE (05:00)
[2018-01-29 06:01] LABS: BASO % 0 % (0-3); EOS # 0.1 x10^3/uL (0.0-0.7); EOS % 1 % (0-3); HEMOGLOBIN 7.4 g/dL (13.0-17.5); LYMPH # 0.9 x10^3/uL (1.0-4.8); LYMPH % 12 % (24-48); MEAN CORPUSCULAR HEMOGLOBIN 31 pg (25-35); MEAN CORPUSCULAR HGB CONC 35 g/dL (31-37); MEAN CORPUSCULAR VOLUME 88 fL (79-100); MONO # 0.6 x10^3/uL (0.0-1.1); MONO % 7 % (0-9); NEUT % 79 % (31-73); PLATELET COUNT 269 x10^3/uL (140-400); RED BLOOD COUNT 2.38 x10^6/uL (4.30-5.70); RED CELL DISTRIBUTION WIDTH 13.4 % (11.5-14.5); WHITE BLOOD COUNT 7.6 x10^3/uL (4.0-11.0)
[2018-01-29 06:28] LABS: CALCIUM 8.5 mg/dL (8.5-10.1); CREATININE 4.4 mg/dL (0.7-1.3); GFR 14.3; POTASSIUM 3.4 mmol/L (3.5-5.1)
[2018-01-29 07:00] VITALS: BP 166/61
--- NOTE | 2018-01-29 08:30 | PDOC ---
Infectious Disease Note Subjective: Subjective pt says feels better had been on bipap last night, now on O2 by nc has dry cough no f/c/n/v/d/headache/sore throat has constipation ROS: ROS Negative except for above. Vital Signs: Vital Signs Vital Signs Date Time Temp Pulse Resp B/P (MAP) Pulse Ox O2 Delivery O2 Flow Rate FiO2 01/29/18 07:37 Nasal Cannula 4.0 01/29/18 07:00 97.9 85 23 166/61 (96) 100 97.9 Physical Exam: PHYSICAL EXAM GENERAL: The patient is layin in bed, axox3 HEENT: Left eye prosthesis. Oral cavity, pharynx pink, dry. No lesions seen. NECK: Supple. LUNGS: dec bs at bases, no wheezing HEART: S1 and S2. ABDOMEN: Bowel sounds active. Soft, nontender. gu connell in place with clear urine EXTREMITIES: [id number] amputation bilaterally. No cyanosis. SKIN: Warm, without rash. NEUROLOGIC: Alert and oriented x 3. Medications: Inpatient Meds: Current Medications Medications (Trade) Dose Ordered Sig/Penelope Start Time Stop Time Status Last Admin Dose Admin Acetaminophen (Tylenol) 650 mg PRN Q6HRS PRN 01/24/18 03:15 01/27/18 18:54 Amlodipine Besylate (Norvasc) 5 mg DAILY 01/24/18 11:30 01/28/18 08:58 Carvedilol (Coreg) 25 mg BIDWMEALS 01/24/18 17:00 01/28/18 17:19 Cefepime HCl (Maxipime) 1 gm DAILY 01/28/18 12:00 01/28/18 13:12 Cefepime HCl 1 gm/ Dextrose 50 ml @ 100 mls/hr DAILY 01/29/18 09:00 UNV Clonidine HCl (Catapres Tts-3) 1 patch WEEKLY 01/25/18 13:00 01/25/18 14:02 Clonidine HCl (Catapres) 0.2 mg BID 01/24/18 11:30 01/28/18 20:50 Clopidogrel Bisulfate (Plavix) 75 mg DAILY 01/24/18 11:30 01/28/18 08:58 Dextrose (Dextrose 50%-Water Syringe) 12.5 gm PRN Q15MIN PRN 01/23/18 23:00 Diphenhydramine HCl (Benadryl) 25 mg 1X ONCE 01/23/18 19:15 01/23/18 19:17 DC 01/23/18 19:25 Doxycycline Hyclate (Vibra-Tab) 100 mg BID 01/28/18 09:00 01/28/18 10:52 DC 01/28/18 09:06 Fentanyl Citrate (Fentanyl 2ml Vial) 50 mcg PRN Q3HRS PRN 01/25/18 09:15 01/26/18 22:05 Furosemide (Lasix) 40 mg DAILY 01/26/18 10:30 01/28/18 08:59 Gabapentin (Neurontin) 100 mg TID 01/24/18 16:00 01/28/18 20:51 Insulin Glargine (Lantus) 4 units BID 01/24/18 11:30 01/28/18 21:22 Insulin Human Lispro (HumaLOG) 20 units 1X ONCE 01/29/18 05:00 01/29/18 05:01 DC 01/29/18 04:39 Insulin Human Regular (HumuLIN R VIAL) 5 unit 1X ONCE 01/23/18 19:45 01/23/18 19:46 DC 01/23/18 19:55 Labetalol HCl (Normodyne Iv Push) 20 mg PRN Q4HRS PRN 01/25/18 13:00 01/25/18 14:05 Levalbuterol HCl (Xopenex) 1.25 mg PRN Q6HRS PRN 01/26/18 08:45 01/27/18 12:19 Levofloxacin/ Dextrose 100 ml @ 100 mls/hr Q24H 01/26/18 08:30 01/26/18 09:32 DC Lidocaine HCl (Xylocaine-Mpf 1% 2ml Vial) 2 ml STK-MED ONCE 01/25/18 15:07 01/25/18 15:08 DC Linezolid/Dextrose 300 ml @ 300 mls/hr Q12HR 01/27/18 10:00 01/28/18 20:54 Magnesium Sulfate/ Dextrose 100 ml @ 100 mls/hr 1X ONCE 01/24/18 09:15 01/24/18 10:14 DC 01/24/18 12:01 Metoclopramide HCl (Reglan Oral Solution) 5 mg QIDACHS 01/28/18 11:30 01/28/18 20:51 Metoclopramide HCl (Reglan Vial) 5 mg QIDACHS 01/28/18 11:30 01/28/18 11:30 DC Metoprolol Tartrate (Lopressor Vial) 7.5 mg Q6HRS 01/25/18 18:00 01/25/18 18:00 DC Morphine Sulfate (Morphine Sulfate) 2 mg PRN Q2HR PRN 01/24/18 11:00 Mycophenolate Mofetil (Cellcept) 250 mg BID 01/27/18 21:00 01/28/18 20:51 Mycophenolate Mofetil 250 mg/ Dextrose 42 ml @ 21 mls/hr Q12H 01/24/18 21:00 01/27/18 14:11 DC 01/27/18 09:33 Nicardipine HCl 50 mg/Sodium Chloride 270 ml @ 32.4 mls/hr CONT PRN 01/24/18 03:00 01/27/18 05:03 Non-Formulary Medication (Hydrochlorothiazide (Hydrochlorothiazide Capsule )) 10 mg BID 01/24/18 21:00 01/24/18 21:00 DC Ondansetron HCl (Zofran) 4 mg PRN Q6HRS PRN 01/24/18 03:15 01/26/18 22:04 Oxycodone/ Acetaminophen (Percocet 5/325) 1 tab PRN Q4HRS PRN 01/24/18 01:00 Pantoprazole Sodium (PROTONIX VIAL for IV PUSH) 40 mg BIDAC 01/25/18 16:30 01/28/18 09:59 DC 01/28/18 08:59 Pantoprazole Sodium (Protonix) 40 mg BIDAC 01/28/18 10:30 01/28/18 17:19 Piperacillin Sod/ Tazobactam Sod (Zosyn Per Pharmacy) 1 each PRN DAILY PRN 01/26/18 10:00 01/28/18 10:56 DC Piperacillin Sod/ Tazobactam Sod 3.375 gm/Sodium Chloride 50 ml @ 100 mls/hr Q6HRS 01/26/18 11:00 01/28/18 10:46 DC 01/28/18 06:03 Prochlorperazine Edisylate (Compazine) 10 mg PRN Q6HRS PRN 01/24/18 03:15 01/27/18 06:31 Propofol 20 ml @ As Directed STK-MED ONCE 01/25/18 15:07 01/25/18 15:08 DC Ringer's Solution 1,000 ml @ 30 mls/hr Q24H 01/25/18 15:15 Cancel Sodium Chloride 1,000 ml @ 0 mls/hr Q0M 01/25/18 15:15 01/25/18 15:43 DC 01/25/18 15:13 Sodium Chloride (Saline Mist Nasal) 1 bryan PRN Q1HR PRN 01/24/18 17:30 Tacrolimus (Prograf) 4 mg DAILY 01/28/18 09:00 01/28/18 09:00 Trimethobenzamide HCl (Tigan Im) 200 mg PRN Q6HRS PRN 01/24/18 11:00 Labs: Lab Laboratory Tests Test 01/28/18 11:33 01/28/18 16:41 01/28/18 20:32 01/29/18 03:39 Glucose (Fingerstick) 266 mg/dL (70-99) 281 mg/dL (70-99) 295 mg/dL (70-99) 413 mg/dL (70-99) Test 01/29/18 05:00 01/29/18 06:06 01/29/18 07:58 White Blood Count 7.6 x10^3/uL (4.0-11.0) Red Blood Count 2.38 x10^6/uL (4.30-5.70) Hemoglobin 7.4 g/dL (13.0-17.5) Hematocrit 21.0 % (39.0-53.0) Mean Corpuscular Volume 88 fL (79-100) Mean Corpuscular Hemoglobin 31 pg (25-35) Mean Corpuscular Hemoglobin Concent 35 g/dL (31-37) Red Cell Distribution Width 13.4 % (11.5-14.5) Platelet Count 269 x10^3/uL (140-400) Neutrophils (%) (Auto) 79 % (31-73) Lymphocytes (%) (Auto) 12 % (24-48) Monocytes (%) (Auto) 7 % (0-9) Eosinophils (%) (Auto) 1 % (0-3) Basophils (%) (Auto) 0 % (0-3) Neutrophils # (Auto) 6.0 x10^3uL (1.8-7.7) Lymphocytes # (Auto) 0.9 x10^3/uL (1.0-4.8) Monocytes # (Auto) 0.6 x10^3/uL (0.0-1.1) Eosinophils # (Auto) 0.1 x10^3/uL (0.0-0.7) Basophils # (Auto) 0.0 x10^3/uL (0.0-0.2) Sodium Level 135 mmol/L (136-145) Potassium Level 3.4 mmol/L (3.5-5.1) Chloride Level 102 mmol/L (98-107) Carbon Dioxide Level 22 mmol/L (21-32) Anion Gap 11 (6-14) Blood Urea Nitrogen 43 mg/dL (8-26) Creatinine 4.4 mg/dL (0.7-1.3) Estimated GFR (Cockcroft-Gault) 14.3 Glucose Level 394 mg/dL (70-99) Calcium Level 8.5 mg/dL (8.5-10.1) Glucose (Fingerstick) 311 mg/dL (70-99) 248 mg/dL (70-99) Micro CXR Impression: Retrocardiac left basilar consolidation spec. Vascular congestion and small left effusion. Sputum GNR,GPC, ? not good specimen BC neg so far UC neg so far Objective: Assessment: Fever etiology unclear,could have been PNA/ UTI though cultures neg,fever resolved Acute respiratory failure. with Left lower lobe infiltrate- flu screen neg, mycoplasma neg, sputum poor quality,clinically improving Pyuria UC neg so far Acute on chronic heart failure. End-stage renal disease, status post renal transplant.worsening creat transfer to [facility] planned Immunocompromised. Accelerated hypertension. Type 2 diabetes. h/o Bilateral BKA Anemia nonhemolytic,multifactorial Plan: Plan of Care Inc creat is concerning,today is at 4.4 (from 2.30 Renal team plans for transfer to [facility] on empiric cefepime( 01/28-) and zyvox ( 01/26-) was on zosyn ( 01/26-01/28), F/U Strep ag, legionella ag f/u BC,UC will add crypto ag ,EBV and CMV serologies though suscipicion is low for infection in this pt Supportive care D/W KATINA OLSEN MD Jan 29, 2018 08:30
[2018-01-29] MEDS: FUROSEMIDE 40 MG/4 ML VIAL. IVP SCH (09:00)
[2018-01-29] MEDS ORDERED: CEFEPIME HCL 1 GM in IV DEXTROSE 5% 50 ML IV SCH (09:00)
[2018-01-29] MEDS: TACROLIMUS 1 MG CAPSULE PO SCH ×2 (09:08→20:10)
[2018-01-29] MEDS: METOCLOPRAMIDE ORAL SOLN 10 MG/10 ML SOLUTION. PO SCH ×4 (09:08→20:11)
[2018-01-29] MEDS: MYCOPHENOLATE MOFETIL 250 MG CAPSULE. PO SCH ×2 (09:08→20:10)
[2018-01-29] MEDS: GABAPENTIN 100 MG CAPSULE. PO SCH ×3 (09:09→20:10)
[2018-01-29] MEDS: CARVEDILOL 12.5 MG TABLET. PO SCH ×2 (09:09→17:14)
[2018-01-29] MEDS: cloNIDine HCL 0.2 MG TABLET PO SCH ×2 (09:09→20:10)
[2018-01-29] MEDS: PANTOPRAZOLE 40 MG TABLET.DR. PO SCH ×2 (09:09→17:12)
[2018-01-29] MEDS: CEFEPIME HCL IV Push 1 GM VIAL. IVP SCH (09:10)
[2018-01-29] MEDS: amLODIPine BESYLATE 5 MG TABLET PO SCH (09:10)
[2018-01-29] MEDS: CLOPIDOGREL BISULFATE 75 MG TABLET PO SCH (09:10)
[2018-01-29] MEDS: INSULIN LISPRO 300 UNITS/3 ML INSULN.PEN. SQ SCH ×5 (09:27→16:46)
[2018-01-29] MEDS: INSULIN GLARGINE 300 UNITS/3 ML INSULN.PEN. SQ SCH ×2 (09:27→21:54)
--- NOTE | 2018-01-29 10:01 | PDOC ---
PROGRESS NOTES Assessment Problems Medical Problems: (1) Hypertensive urgency Status: Acute (2) Intractable nausea and vomiting Status: Acute (3) Migraine headache Status: Acute Cluster headache. Hypertensive emergency, SBP 229 mmHg. Left LL pneumonia and pleural effusion. 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 No evidence of acute CVA Plan BP control. Pain control. Neurontin 100 mg tid. Treat medical diseases. I will follow along loosely as headache is resolved Objective Vital Signs Date Time Temp Pulse Resp B/P (MAP) Pulse Ox O2 Delivery O2 Flow Rate FiO2 01/29/18 09:10 91 166/61 01/29/18 07:37 Nasal Cannula 4.0 01/29/18 07:00 97.9 23 100 97.9 Intake and Output 01/29/18 07:00 Intake Total 2560 ml Output Total 600 ml Balance 1960 ml Intake Oral 2260 ml Other 300 ml Output Urine Total 600 ml PHYSICAL EXAM Alert. Oriented to time, place and person. Right people reactive, left prosthetic eye EOMI. CN: no focal findings. Muscle tone: normal. Muscle strength: 5/5 DTR: 2+ arms, 1+ legs Plantar reflex: has bilateral below the knee amputations Gait: not examined in bed. Sensory exam: no abnormal findings. No cerebellar signs elicited. Review of Relevant I have reviewed the following items nadiya (where applicable) has been applied. Labs Laboratory Tests Test 01/27/18 12:10 01/27/18 12:13 01/27/18 15:47 01/27/18 20:59 Urine Collection Type Unknown Urine Color Yellow Urine Clarity Clear Urine pH 5.0 Urine Specific [place] 1.020 Urine Protein 100 mg/dL (NEG-TRACE) Urine Glucose (UA) 100 mg/dL (NEG) Urine Ketones (Stick) Trace mg/dL (NEG) Urine Blood Negative (NEG) Urine Nitrite Negative (NEG) Urine Bilirubin Negative (NEG) Urine Urobilinogen Dipstick 0.2 mg/dL (0.2 mg/dL) Urine Leukocyte Esterase Moderate (NEG) Urine RBC 0 /HPF (0-2) Urine WBC >40 /HPF (0-4) Urine Squamous Epithelial Cells Few /LPF Urine Transitional Epithelial Cells Few /LPF Urine Amorphous Sediment Present /HPF Urine Bacteria 0 /HPF (0-FEW) Urine Hyaline Casts Moderate /HPF Urine Granular Casts Few /HPF Urine Waxy Casts Occasional /HPF Urine Mucus Mod /LPF Glucose (Fingerstick) 325 mg/dL (70-99) 263 mg/dL (70-99) 209 mg/dL (70-99) Test 01/28/18 02:50 01/28/18 07:06 01/28/18 11:33 01/28/18 16:41 White Blood Count 10.2 x10^3/uL (4.0-11.0) Red Blood Count 2.23 x10^6/uL (4.30-5.70) Hemoglobin 7.1 g/dL (13.0-17.5) Hematocrit 19.6 % (39.0-53.0) Mean Corpuscular Volume 88 fL (79-100) Mean Corpuscular Hemoglobin 32 pg (25-35) Mean Corpuscular Hemoglobin Concent 36 g/dL (31-37) Red Cell Distribution Width 13.4 % (11.5-14.5) Platelet Count 216 x10^3/uL (140-400) Neutrophils (%) (Auto) 72 % (31-73) Lymphocytes (%) (Auto) 15 % (24-48) Monocytes (%) (Auto) 12 % (0-9) Eosinophils (%) (Auto) 0 % (0-3) Basophils (%) (Auto) 1 % (0-3) Neutrophils # (Auto) 7.4 x10^3uL (1.8-7.7) Lymphocytes # (Auto) 1.5 x10^3/uL (1.0-4.8) Monocytes # (Auto) 1.2 x10^3/uL (0.0-1.1) Eosinophils # (Auto) 0.0 x10^3/uL (0.0-0.7) Basophils # (Auto) 0.0 x10^3/uL (0.0-0.2) Reticulocyte Count (auto) 1.7 % (0.5-2.5) Sodium Level 137 mmol/L (136-145) Potassium Level 3.7 mmol/L (3.5-5.1) Chloride Level 104 mmol/L (98-107) Carbon Dioxide Level 23 mmol/L (21-32) Anion Gap 10 (6-14) Blood Urea Nitrogen 37 mg/dL (8-26) Creatinine 3.7 mg/dL (0.7-1.3) Estimated GFR (Cockcroft-Gault) 17.5 Glucose Level 226 mg/dL (70-99) Calcium Level 8.7 mg/dL (8.5-10.1) Iron Level 12 ug/dL (65-175) Total Iron Binding Capacity 136 ug/dL (250-450) Iron Saturation 9 % (15-34) Ferritin 418 ng/mL (26-388) Glucose (Fingerstick) 233 mg/dL (70-99) 266 mg/dL (70-99) 281 mg/dL (70-99) Test 01/28/18 20:32 01/29/18 03:39 01/29/18 05:00 01/29/18 06:06 Glucose (Fingerstick) 295 mg/dL (70-99) 413 mg/dL (70-99) 311 mg/dL (70-99) White Blood Count 7.6 x10^3/uL (4.0-11.0) Red Blood Count 2.38 x10^6/uL (4.30-5.70) Hemoglobin 7.4 g/dL (13.0-17.5) Hematocrit 21.0 % (39.0-53.0) Mean Corpuscular Volume 88 fL (79-100) Mean Corpuscular Hemoglobin 31 pg (25-35) Mean Corpuscular Hemoglobin Concent 35 g/dL (31-37) Red Cell Distribution Width 13.4 % (11.5-14.5) Platelet Count 269 x10^3/uL (140-400) Neutrophils (%) (Auto) 79 % (31-73) Lymphocytes (%) (Auto) 12 % (24-48) Monocytes (%) (Auto) 7 % (0-9) Eosinophils (%) (Auto) 1 % (0-3) Basophils (%) (Auto) 0 % (0-3) Neutrophils # (Auto) 6.0 x10^3uL (1.8-7.7) Lymphocytes # (Auto) 0.9 x10^3/uL (1.0-4.8) Monocytes # (Auto) 0.6 x10^3/uL (0.0-1.1) Eosinophils # (Auto) 0.1 x10^3/uL (0.0-0.7) Basophils # (Auto) 0.0 x10^3/uL (0.0-0.2) Sodium Level 135 mmol/L (136-145) Potassium Level 3.4 mmol/L (3.5-5.1) Chloride Level 102 mmol/L (98-107) Carbon Dioxide Level 22 mmol/L (21-32) Anion Gap 11 (6-14) Blood Urea Nitrogen 43 mg/dL (8-26) Creatinine 4.4 mg/dL (0.7-1.3) Estimated GFR (Cockcroft-Gault) 14.3 Glucose Level 394 mg/dL (70-99) Calcium Level 8.5 mg/dL (8.5-10.1) Test 01/29/18 07:58 Glucose (Fingerstick) 248 mg/dL (70-99) Laboratory Tests Test 01/28/18 11:33 01/28/18 16:41 01/28/18 20:32 01/29/18 03:39 Glucose (Fingerstick) 266 mg/dL (70-99) 281 mg/dL (70-99) 295 mg/dL (70-99) 413 mg/dL (70-99) Test 01/29/18 05:00 01/29/18 06:06 01/29/18 07:58 White Blood Count 7.6 x10^3/uL (4.0-11.0) Red Blood Count 2.38 x10^6/uL (4.30-5.70) Hemoglobin 7.4 g/dL (13.0-17.5) Hematocrit 21.0 % (39.0-53.0) Mean Corpuscular Volume 88 fL (79-100) Mean Corpuscular Hemoglobin 31 pg (25-35) Mean Corpuscular Hemoglobin Concent 35 g/dL (31-37) Red Cell Distribution Width 13.4 % (11.5-14.5) Platelet Count 269 x10^3/uL (140-400) Neutrophils (%) (Auto) 79 % (31-73) Lymphocytes (%) (Auto) 12 % (24-48) Monocytes (%) (Auto) 7 % (0-9) Eosinophils (%) (Auto) 1 % (0-3) Basophils (%) (Auto) 0 % (0-3) Neutrophils # (Auto) 6.0 x10^3uL (1.8-7.7) Lymphocytes # (Auto) 0.9 x10^3/uL (1.0-4.8) Monocytes # (Auto) 0.6 x10^3/uL (0.0-1.1) Eosinophils # (Auto) 0.1 x10^3/uL (0.0-0.7) Basophils # (Auto) 0.0 x10^3/uL (0.0-0.2) Sodium Level 135 mmol/L (136-145) Potassium Level 3.4 mmol/L (3.5-5.1) Chloride Level 102 mmol/L (98-107) Carbon Dioxide Level 22 mmol/L (21-32) Anion Gap 11 (6-14) Blood Urea Nitrogen 43 mg/dL (8-26) Creatinine 4.4 mg/dL (0.7-1.3) Estimated GFR (Cockcroft-Gault) 14.3 Glucose Level 394 mg/dL (70-99) Calcium Level 8.5 mg/dL (8.5-10.1) Glucose (Fingerstick) 311 mg/dL (70-99) 248 mg/dL (70-99) Microbiology 01/26/18 Blood Culture - Preliminary, Resulted NO GROWTH AFTER 2 DAYS 01/28/18 - Final, Resulted 01/28/18 - Final, Resulted 01/28/18 - Final, Resulted 01/28/18 - Final, Resulted 01/28/18 - Final, Resulted 01/28/18 Gram Stain Evaluation - Final, Resulted 01/28/18 Sputum Culture, Resulted Pending Medications Current Medications Sodium Chloride 1,000 ml @ 1,000 mls/hr Q1H IV Last administered on at 17:54; Start 01/23/18 at 17:21; Stop 01/23/18 at 18:20; Status DC Prochlorperazine Edisylate (Compazine) 10 mg 1X ONCE IV Last administered on 01/23/18at 17:55; Start 01/23/18 at 17:30; Stop 01/23/18 at 17:31; Status DC Diphenhydramine HCl (Benadryl) 25 mg 1X ONCE IVP Last administered on at 17:57; Start 01/23/18 at 17:30; Stop 01/23/18 at 17:31; Status DC Metoclopramide HCl (Reglan Vial) 10 mg 1X ONCE IV Last administered on at 19:24; Start 01/23/18 at 19:15; Stop 01/23/18 at 19:17; Status DC Diphenhydramine HCl (Benadryl) 25 mg 1X ONCE IVP Last administered on at 19:25; Start 01/23/18 at 19:15; Stop 01/23/18 at 19:17; Status DC Metoprolol Tartrate (Lopressor Vial) 5 mg 1X ONCE IVP Last administered on at 19:55; Start 01/23/18 at 19:45; Stop 01/23/18 at 19:46; Status DC Insulin Human Regular (HumuLIN R VIAL) 5 unit 1X ONCE IV Last administered on 01/23/18at 19:55; Start 01/23/18 at 19:45; Stop 01/23/18 at 19:46; Status DC Labetalol HCl (Normodyne Iv Push) 10 mg 1X ONCE IVP ; Start 01/23/18 at 20:30 ; Stop 01/23/18 at 20:31; Status DC Labetalol HCl (Normodyne Iv Push) 10 mg 1X ONCE IVP Last administered on 01/23at 22:29; Start 01/23/18 at 22:00; Stop 01/23/18 at 22:04; Status DC Ondansetron HCl (Zofran) 4 mg PRN Q8HRS PRN IV NAUSEA/VOMITING Last administered on 01/24/18at 00:16; Start 01/23/18 at 22:45; Stop 01/24/18 at 03 :05; Status DC Fentanyl Citrate (Fentanyl 2ml Vial) 50 mcg PRN Q2HR PRN IV PAIN Last administered on 01/24/18at 19:48; Start 01/23/18 at 22:45; Stop 01/24/18 at 22 :44; Status DC Sodium Chloride 1,000 ml @ 100 mls/hr Q10H IV Last administered on 01/24/18at 19:56; Start 01/23/18 at 22:37; Stop 01/24/18 at 22:36; Status DC Labetalol HCl (Normodyne Iv Push) 10 mg PRN Q30MIN PRN IVP SBP>180 Last administered on 01/24/18at 00:07; Start 01/23/18 at 22:45; Stop 01/24/18 at 00 :49; Status DC Insulin Human Lispro (HumaLOG) 0-5 UNITS TIDWMEALS SQ Last administered on at 09:27; Start 01/24/18 at 08:00 Dextrose (Dextrose 50%-Water Syringe) 12.5 gm PRN Q15MIN PRN IV SEE COMMENTS; Start 01/23/18 at 23:00 Labetalol HCl (Normodyne Iv Push) 20 mg PRN Q2HR PRN IVP HYPERTENSION, SEE COMMENTS Last administered on 01/24/18at 02:12; Start 01/24/18 at 00:45; Stop 01/25/18 at 14:21; Status DC Carvedilol (Coreg) 6.25 mg 1X ONCE PO ; Start 01/24/18 at 00:45; Stop at 00:49; Status DC Amlodipine Besylate (Norvasc) 5 mg 1X ONCE PO Last administered on 01/24/18at 01:00; Start 01/24/18 at 00:45; Stop 01/24/18 at 00:49; Status DC Oxycodone/ Acetaminophen (Percocet 5/325) 1 tab PRN Q4HRS PRN PO PAIN; Start 01/24/18 at 01:00 Carvedilol (Coreg) 12.5 mg 1X ONCE PO Last administered on 01/24/18at 01:05; Start 01/24/18 at 01:00; Stop 01/24/18 at 01:04; Status DC Nicardipine HCl 50 mg/Sodium Chloride 270 ml @ 32.4 mls/hr CONT PRN IV SEE I/ O RECORD Last administered on 01/27/18at 05:03; Start 01/24/18 at 03:00 Acetaminophen (Tylenol) 650 mg PRN Q6HRS PRN PEG MILD PAIN / TEMP; Start 01/24 at 03:15; Status Cancel Ondansetron HCl (Zofran) 4 mg PRN Q6HRS PRN IV NAUSEA/VOMITING, 1ST CHOICE Last administered on 01/26/18at 22:04; Start 01/24/18 at 03:15 Metoclopramide HCl (Reglan Vial) 5 mg PRN Q6HRS PRN IV NAUSEA/VOMITING, 3RD CHOICE Last administered on 01/25/18at 11:53; Start 01/24/18 at 03:15; Stop at 15:35; Status DC Prochlorperazine Edisylate (Compazine) 10 mg PRN Q6HRS PRN IV NAUSEA/VOMITING, 2ND CHOICE Last administered on 01/27/18at 06:31; Start 01/24/18 at 03:15 Pantoprazole Sodium (Protonix) 40 mg 1X ONCE PO Last administered on at 03:13; Start 01/24/18 at 03:30; Stop 01/24/18 at 03:31; Status DC Acetaminophen (Tylenol) 650 mg PRN Q6HRS PRN PO MIGRAINE HEADACHE Last administered on 01/27/18at 18:54; Start 01/24/18 at 03:15 Insulin Human Lispro (HumaLOG) 10 units 1X ONCE SQ Last administered on at 05:09; Start 01/24/18 at 05:00; Stop 01/24/18 at 05:02; Status DC Magnesium Sulfate/ Dextrose 100 ml @ 100 mls/hr 1X ONCE IV Last administered on 01/24/18at 12:01; Start 01/24/18 at 09:15; Stop 01/24/18 at 10:14; Status DC Metoprolol Tartrate (Lopressor Vial) 5 mg Q6HRS IVP Last administered on at 11:08; Start 01/24/18 at 11:00; Stop 01/25/18 at 11:41; Status DC Trimethobenzamide HCl (Tigan Im) 200 mg PRN Q6HRS PRN IM NAUSEA/VOMITING; Start 01/24/18 at 11:00 Morphine Sulfate (Morphine Sulfate) 2 mg PRN Q2HR PRN IV MODERATE PAIN; Start 01/24/18 at 11:00 Amlodipine Besylate (Norvasc) 5 mg DAILY PO Last administered on 01/29/18at 09: 10; Start 01/24/18 at 11:30 Clonidine HCl (Catapres) 0.2 mg BID PO Last administered on 01/29/18at 09:09; Start 01/24/18 at 11:30 Clopidogrel Bisulfate (Plavix) 75 mg DAILY PO Last administered on 01/29/18at 09:10; Start 01/24/18 at 11:30 Insulin Glargine (Lantus) 4 units [id number] SQ ; Start 01/24/18 at 11:30; Stop 01/24/18 at 11:30; Status DC Insulin Glargine (Lantus) 4 units QHS SQ ; Start 01/24/18 at 21:00; Status UNV Carvedilol (Coreg) 25 mg BIDWMEALS PO Last administered on 01/29/18at 09:09; Start 01/24/18 at 17:00 Non-Formulary Medication (Hydrochlorothiazide (Hydrochlorothiazide Capsule ) ) 10 mg BID PO ; Start 01/24/18 at 21:00; Stop 01/24/18 at 21:00; Status DC Mycophenolate Mofetil (Cellcept) 250 mg BID PO Last administered on 01/24/18at 12:01; Start 01/24/18 at 12:00; Stop 01/24/18 at 15:58; Status DC Pantoprazole Sodium (Protonix) 40 mg DAILYAC PO ; Start 01/24/18 at 11:30; Stop 01/24/18 at 12:01; Status DC Tacrolimus (Prograf) 2 mg BID PO Last administered on 01/24/18at 12:02; Start 01/24/18 at 12:00; Stop 01/24/18 at 13:07; Status DC Insulin Glargine (Lantus) 4 units BID SQ Last administered on 01/29/18at 09:27 ; Start 01/24/18 at 11:30 Pantoprazole Sodium (PROTONIX VIAL for IV PUSH) 40 mg DAILYAC IVP Last administered on 01/25/18at 09:34; Start 01/24/18 at 13:00; Stop 01/25/18 at 15 :35; Status DC Tacrolimus (Prograf) 4 mg DAILY PO ; Start 01/25/18 at 09:00; Stop 01/25/18 at 09:00; Status DC Tacrolimus (Prograf) 3 mg QHS PO ; Start 01/24/18 at 21:00; Stop 01/24/18 at 21:00; Status DC Tacrolimus (Prograf) 2 mg DAILY SL Last administered on 01/27/18at 07:59; Start 01/25/18 at 09:00; Stop 01/27/18 at 17:15; Status DC Tacrolimus (Prograf) 1 mg QHS SL Last administered on 01/26/18at 21:33; Start 01/24/18 at 21:00; Stop 01/27/18 at 17:13; Status DC Sodium Chloride (Saline Mist Nasal) 1 bryan PRN Q1HR PRN NS NASAL CONGESTION; Start 01/24/18 at 15:00; Stop 01/24/18 at 17:28; Status DC Gabapentin (Neurontin) 100 mg TID PO Last administered on 01/29/18at 09:09; Start 01/24/18 at 16:00 Mycophenolate Mofetil 250 mg/ Dextrose 42 ml @ 21 mls/hr Q12H IV Last administered on 01/27/18at 09:33; Start 01/24/18 at 21:00; Stop 01/27/18 at 14 :11; Status DC Tacrolimus (Prograf) 0.5 mg QHS SL Last administered on 01/26/18at 21:33; Start 01/24/18 at 21:00; Stop 01/27/18 at 17:13; Status DC Sodium Chloride (Saline Mist Nasal) 1 bryan PRN Q1HR PRN NS NASAL CONGESTION; Start 01/24/18 at 17:30 Sodium Chloride 1,000 ml @ 75 mls/hr [id number] IV ; Start 01/25/18 at 07:30; Stop 01/27/18 at 15:58; Status DC Fentanyl Citrate (Fentanyl 2ml Vial) 50 mcg PRN Q3HRS PRN IV SEVERE PAIN Last administered on 01/26/18at 22:05; Start 01/25/18 at 09:15 Sodium Chloride 1,000 ml @ 75 mls/hr [id number] IV Last administered on at 09:35; Start 01/25/18 at 09:15; Stop 01/27/18 at 15:58; Status DC Metoprolol Tartrate (Lopressor Vial) 7.5 mg Q6HRS IVP ; Start 01/25/18 at 18:00 ; Stop 01/25/18 at 18:00; Status DC Clonidine HCl (Catapres Tts-3) 1 patch WEEKLY TD Last administered on at 14:02; Start 01/25/18 at 13:00 Labetalol HCl (Normodyne Iv Push) 20 mg PRN Q4HRS PRN IVP HYPERTENSION, SEE COMMENTS Last administered on 01/25/18at 14:05; Start 01/25/18 at 13:00 Ringer's Solution 1,000 ml @ 30 mls/hr Q24H IV ; Start 01/25/18 at 15:15; Status Cancel Propofol 20 ml @ As Directed STK-MED ONCE IV ; Start 01/25/18 at 15:07; Stop 01/25/18 at 15:08; Status DC Lidocaine HCl (Xylocaine-Mpf 1% 2ml Vial) 2 ml STK-MED ONCE .ROUTE ; Start at 15:07; Stop 01/25/18 at 15:08; Status DC Sodium Chloride 1,000 ml @ 0 mls/hr Q0M IV Last administered on 01/25/18at 15: 13; Start 01/25/18 at 15:15; Stop 01/25/18 at 15:43; Status DC Metoclopramide HCl (Reglan Vial) 5 mg Q6HRS IV Last administered on 01/28/18at 06:02; Start 01/25/18 at 18:00; Stop 01/28/18 at 09:59; Status DC Pantoprazole Sodium (PROTONIX VIAL for IV PUSH) 40 mg BIDAC IVP Last administered on 01/28/18at 08:59; Start 01/25/18 at 16:30; Stop 01/28/18 at 09 :59; Status DC Levofloxacin/ Dextrose 100 ml @ 100 mls/hr Q24H IV ; Start 01/26/18 at 08:30; Stop 01/26/18 at 09:32; Status DC Levalbuterol HCl (Xopenex) 1.25 mg PRN Q6HRS PRN NEB SHORTNESS OF BREATH Last administered on 01/27/18at 12:19; Start 01/26/18 at 08:45 Piperacillin Sod/ Tazobactam Sod (Zosyn Per Pharmacy) 1 each PRN DAILY PRN MC SEE COMMENTS; Start 01/26/18 at 10:00; Stop 01/28/18 at 10:56; Status DC Furosemide (Lasix) 40 mg DAILY IVP Last administered on 01/28/18at 08:59; Start 01/26/18 at 10:30 Piperacillin Sod/ Tazobactam Sod 3.375 gm/Sodium Chloride 50 ml @ 100 mls/hr Q6HRS IV Last administered on 01/28/18at 06:03; Start 01/26/18 at 11:00; Stop 01/28/18 at 10:46; Status DC Linezolid/Dextrose 300 ml @ 300 mls/hr Q12HR IV Last administered on at 09:10; Start 01/27/18 at 10:00 Mycophenolate Mofetil (Cellcept) 250 mg BID PO Last administered on 01/29/18 09:08; Start 01/27/18 at 21:00 Tacrolimus (Prograf) 3 mg QHS PO Last administered on 01/28/18at 21:16; Start 01/27/18 at 21:00 Tacrolimus (Prograf) 4 mg DAILY PO Last administered on 01/29/18at 09:08; Start 01/28/18 at 09:00 Doxycycline Hyclate (Vibra-Tab) 100 mg BID PO Last administered on 01/28/18at 09:06; Start 01/28/18 at 09:00; Stop 01/28/18 at 10:52; Status DC Metoclopramide HCl (Reglan Vial) 5 mg QIDACHS IV ; Start 01/28/18 at 11:30; Stop 01/28/18 at 11:30; Status DC Pantoprazole Sodium (Protonix) 40 mg BIDAC PO Last administered on 01/29/18at 09:09; Start 01/28/18 at 10:30 Metoclopramide HCl (Reglan Oral Solution) 5 mg QIDACHS PO Last administered on 01/29/18at 09:08; Start 01/28/18 at 11:30 Cefepime HCl 1 gm/ Dextrose 50 ml @ 100 mls/hr DAILY IV ; Start 01/29/18 at 09 :00; Status UNV Cefepime HCl (Maxipime) 1 gm DAILY IVP Last administered on 01/29/18at 09:10; Start 01/28/18 at 12:00 Insulin Human Lispro (HumaLOG) 20 units 1X ONCE SQ Last administered on at 04:39; Start 01/29/18 at 05:00; Stop 01/29/18 at 05:01; Status DC Active Scripts Active Oxycodone-Acetaminophen 5-325 (Oxycodone Hcl/Acetaminophen) 1 Each Tablet 1 Tab PO PRN Q4HRS PRN Reported Prograf (Tacrolimus) 1 Mg Capsule 3 Cap PO QHS Prograf (Tacrolimus) 1 Mg Capsule 4 Cap PO DAILY Lantus Solostar (Insulin Glargine,Hum.rec.anlog) 100 Unit/1 Ml Insuln.pen 4 Unit SQ DAILYWBKFT Lantus Solostar (Insulin Glargine,Hum.rec.anlog) 100 Unit/1 Ml Insuln.pen 4 Unit SQ QHS Amlodipine Besylate 5 Mg Tablet 5 Mg PO DAILY Clonidine Hcl 0.2 Mg Tablet 1 Tab PO BID Clopidogrel (Clopidogrel Bisulfate) 75 Mg Tablet 1 Tab PO DAILY Cellcept (Mycophenolate Mofetil) 250 Mg Capsule 1 Cap PO BID Pantoprazole Sodium 20 Mg Tablet.dr 20 Mg PO DAILY Hydrochlorothiazide Capsule (Hydrochlorothiazide) 12.5 Mg Capsule 10 Mg PO BID Carvedilol 25 Mg Tablet 2 Tab PO DAILYBFRSUP Vitals/I & O Vital Sign - Last 24 Hours 01/28/18 01/28/18 01/28/18 01/28/18 11:16 14:52 17:19 19:10 Temp 98.5 99.0 98.0 98.5 99.0 98.0 Pulse 87 86 95 88 Resp 20 20 20 B/P (MAP) 119/56 (77) 141/61 (87) 131/60 (83) Pulse Ox 100 100 99 O2 Delivery BiPAP/CPAP BiPAP/CPAP Nasal Cannula O2 Flow Rate 4.0 01/28/18 01/28/18 01/28/18 01/28/18 20:00 20:50 22:00 23:35 Temp 98.1 98.1 Pulse 88 84 Resp 20 B/P (MAP) 131/60 153/54 (87) Pulse Ox 100 100 O2 Delivery Nasal Cannula BiPAP/CPAP BiPAP/CPAP O2 Flow Rate 4.0 01/28/18 01/29/18 01/29/18 01/29/18 23:55 01:55 03:40 03:55 Temp 97.9 97.9 Pulse 85 Resp 18 B/P (MAP) 161/65 (97) Pulse Ox 100 100 100 100 O2 Delivery BiPAP/CPAP BiPAP/CPAP BiPAP/CPAP BiPAP/CPAP 01/29/18 01/29/18 01/29/18 01/29/18 07:00 07:37 09:09 09:09 Temp 97.9 97.9 Pulse 85 92 91 Resp 23 B/P (MAP) 166/61 (96) 166/61 166/61 Pulse Ox 100 O2 Delivery BiPAP/CPAP Nasal Cannula O2 Flow Rate 4.0 01/29/18 09:10 Pulse 91 B/P (MAP) 166/61 Intake and Output 01/28/18 01/28/18 01/29/18 15:00 23:00 07:00 Intake Total 0 ml 900 ml 1660 ml Output Total 350 ml 250 ml Balance 0 ml 550 ml 1410 ml VIJAY MORILLO MD Jan 29, 2018 10:01
[2018-01-29 11:00] VITALS: BP 156/72
--- NOTE | 2018-01-29 11:33 | PDOC ---
PULMONARY PROGRESS NOTES Subjective PT BETTER OFF BIPAP Vitals Vital Signs Date Time Temp Pulse Resp B/P (MAP) Pulse Ox O2 Delivery O2 Flow Rate FiO2 01/29/18 09:10 91 166/61 01/29/18 07:37 Nasal Cannula 4.0 01/29/18 07:00 97.9 23 100 97.9 ROS: No Nausea, No Chest Pain, No Abdominal Pain General: Alert, No acute distress Lungs: Clear Cardiovascular: S1, S2 Abdomen: Soft Neuro Exam: Alert Extremities: Other (S/P BKA) Skin: Warm Labs Laboratory Tests Test 01/27/18 12:10 01/27/18 12:13 01/27/18 15:47 01/27/18 20:59 Urine Collection Type Unknown Urine Color Yellow Urine Clarity Clear Urine pH 5.0 Urine Specific [place] 1.020 Urine Protein 100 mg/dL (NEG-TRACE) Urine Glucose (UA) 100 mg/dL (NEG) Urine Ketones (Stick) Trace mg/dL (NEG) Urine Blood Negative (NEG) Urine Nitrite Negative (NEG) Urine Bilirubin Negative (NEG) Urine Urobilinogen Dipstick 0.2 mg/dL (0.2 mg/dL) Urine Leukocyte Esterase Moderate (NEG) Urine RBC 0 /HPF (0-2) Urine WBC >40 /HPF (0-4) Urine Squamous Epithelial Cells Few /LPF Urine Transitional Epithelial Cells Few /LPF Urine Amorphous Sediment Present /HPF Urine Bacteria 0 /HPF (0-FEW) Urine Hyaline Casts Moderate /HPF Urine Granular Casts Few /HPF Urine Waxy Casts Occasional /HPF Urine Mucus Mod /LPF Glucose (Fingerstick) 325 mg/dL (70-99) 263 mg/dL (70-99) 209 mg/dL (70-99) Test 01/28/18 02:50 01/28/18 07:06 01/28/18 11:33 01/28/18 16:41 White Blood Count 10.2 x10^3/uL (4.0-11.0) Red Blood Count 2.23 x10^6/uL (4.30-5.70) Hemoglobin 7.1 g/dL (13.0-17.5) Hematocrit 19.6 % (39.0-53.0) Mean Corpuscular Volume 88 fL (79-100) Mean Corpuscular Hemoglobin 32 pg (25-35) Mean Corpuscular Hemoglobin Concent 36 g/dL (31-37) Red Cell Distribution Width 13.4 % (11.5-14.5) Platelet Count 216 x10^3/uL (140-400) Neutrophils (%) (Auto) 72 % (31-73) Lymphocytes (%) (Auto) 15 % (24-48) Monocytes (%) (Auto) 12 % (0-9) Eosinophils (%) (Auto) 0 % (0-3) Basophils (%) (Auto) 1 % (0-3) Neutrophils # (Auto) 7.4 x10^3uL (1.8-7.7) Lymphocytes # (Auto) 1.5 x10^3/uL (1.0-4.8) Monocytes # (Auto) 1.2 x10^3/uL (0.0-1.1) Eosinophils # (Auto) 0.0 x10^3/uL (0.0-0.7) Basophils # (Auto) 0.0 x10^3/uL (0.0-0.2) Reticulocyte Count (auto) 1.7 % (0.5-2.5) Sodium Level 137 mmol/L (136-145) Potassium Level 3.7 mmol/L (3.5-5.1) Chloride Level 104 mmol/L (98-107) Carbon Dioxide Level 23 mmol/L (21-32) Anion Gap 10 (6-14) Blood Urea Nitrogen 37 mg/dL (8-26) Creatinine 3.7 mg/dL (0.7-1.3) Estimated GFR (Cockcroft-Gault) 17.5 Glucose Level 226 mg/dL (70-99) Calcium Level 8.7 mg/dL (8.5-10.1) Iron Level 12 ug/dL (65-175) Total Iron Binding Capacity 136 ug/dL (250-450) Iron Saturation 9 % (15-34) Ferritin 418 ng/mL (26-388) Glucose (Fingerstick) 233 mg/dL (70-99) 266 mg/dL (70-99) 281 mg/dL (70-99) Test 01/28/18 20:32 01/29/18 03:39 01/29/18 05:00 01/29/18 06:06 Glucose (Fingerstick) 295 mg/dL (70-99) 413 mg/dL (70-99) 311 mg/dL (70-99) White Blood Count 7.6 x10^3/uL (4.0-11.0) Red Blood Count 2.38 x10^6/uL (4.30-5.70) Hemoglobin 7.4 g/dL (13.0-17.5) Hematocrit 21.0 % (39.0-53.0) Mean Corpuscular Volume 88 fL (79-100) Mean Corpuscular Hemoglobin 31 pg (25-35) Mean Corpuscular Hemoglobin Concent 35 g/dL (31-37) Red Cell Distribution Width 13.4 % (11.5-14.5) Platelet Count 269 x10^3/uL (140-400) Neutrophils (%) (Auto) 79 % (31-73) Lymphocytes (%) (Auto) 12 % (24-48) Monocytes (%) (Auto) 7 % (0-9) Eosinophils (%) (Auto) 1 % (0-3) Basophils (%) (Auto) 0 % (0-3) Neutrophils # (Auto) 6.0 x10^3uL (1.8-7.7) Lymphocytes # (Auto) 0.9 x10^3/uL (1.0-4.8) Monocytes # (Auto) 0.6 x10^3/uL (0.0-1.1) Eosinophils # (Auto) 0.1 x10^3/uL (0.0-0.7) Basophils # (Auto) 0.0 x10^3/uL (0.0-0.2) Sodium Level 135 mmol/L (136-145) Potassium Level 3.4 mmol/L (3.5-5.1) Chloride Level 102 mmol/L (98-107) Carbon Dioxide Level 22 mmol/L (21-32) Anion Gap 11 (6-14) Blood Urea Nitrogen 43 mg/dL (8-26) Creatinine 4.4 mg/dL (0.7-1.3) Estimated GFR (Cockcroft-Gault) 14.3 Glucose Level 394 mg/dL (70-99) Calcium Level 8.5 mg/dL (8.5-10.1) Test 01/29/18 07:58 Glucose (Fingerstick) 248 mg/dL (70-99) Laboratory Tests Test 01/28/18 11:33 01/28/18 16:41 01/28/18 20:32 01/29/18 03:39 Glucose (Fingerstick) 266 mg/dL (70-99) 281 mg/dL (70-99) 295 mg/dL (70-99) 413 mg/dL (70-99) Test 01/29/18 05:00 01/29/18 06:06 01/29/18 07:58 White Blood Count 7.6 x10^3/uL (4.0-11.0) Red Blood Count 2.38 x10^6/uL (4.30-5.70) Hemoglobin 7.4 g/dL (13.0-17.5) Hematocrit 21.0 % (39.0-53.0) Mean Corpuscular Volume 88 fL (79-100) Mean Corpuscular Hemoglobin 31 pg (25-35) Mean Corpuscular Hemoglobin Concent 35 g/dL (31-37) Red Cell Distribution Width 13.4 % (11.5-14.5) Platelet Count 269 x10^3/uL (140-400) Neutrophils (%) (Auto) 79 % (31-73) Lymphocytes (%) (Auto) 12 % (24-48) Monocytes (%) (Auto) 7 % (0-9) Eosinophils (%) (Auto) 1 % (0-3) Basophils (%) (Auto) 0 % (0-3) Neutrophils # (Auto) 6.0 x10^3uL (1.8-7.7) Lymphocytes # (Auto) 0.9 x10^3/uL (1.0-4.8) Monocytes # (Auto) 0.6 x10^3/uL (0.0-1.1) Eosinophils # (Auto) 0.1 x10^3/uL (0.0-0.7) Basophils # (Auto) 0.0 x10^3/uL (0.0-0.2) Sodium Level 135 mmol/L (136-145) Potassium Level 3.4 mmol/L (3.5-5.1) Chloride Level 102 mmol/L (98-107) Carbon Dioxide Level 22 mmol/L (21-32) Anion Gap 11 (6-14) Blood Urea Nitrogen 43 mg/dL (8-26) Creatinine 4.4 mg/dL (0.7-1.3) Estimated GFR (Cockcroft-Gault) 14.3 Glucose Level 394 mg/dL (70-99) Calcium Level 8.5 mg/dL (8.5-10.1) Glucose (Fingerstick) 311 mg/dL (70-99) 248 mg/dL (70-99) Medications Active Scripts Medications Dose Route/Sig Max Daily Dose Days Date Category Prograf (Tacrolimus) 1 Mg Capsule 3 Cap PO QHS 01/24/18 Reported Prograf (Tacrolimus) 1 Mg Capsule 4 Cap PO DAILY 01/24/18 Reported Lantus Solostar (Insulin Glargine,Hum.rec.anlog) 100 Unit/1 Ml Insuln.pen 4 Unit SQ [id number] 01/24/18 Reported Lantus Solostar (Insulin Glargine,Hum.rec.anlog) 100 Unit/1 Ml Insuln.pen 4 Unit SQ QHS 01/24/18 Reported Amlodipine Besylate 5 Mg Tablet 5 Mg PO DAILY 01/24/18 Reported Clonidine Hcl 0.2 Mg Tablet 1 Tab PO BID 01/24/18 Reported Oxycodone-Acetaminophen 5-325 (Oxycodone Hcl/Acetaminophen) 1 Each Tablet 1 Tab PO PRN Q4HRS PRN 07/15/16 Rx Clopidogrel (Clopidogrel Bisulfate) 75 Mg Tablet 1 Tab PO DAILY 07/15/16 Reported Cellcept (Mycophenolate Mofetil) 250 Mg Capsule 1 Cap PO BID 07/15/16 Reported Pantoprazole Sodium 20 Mg Tablet.dr 20 Mg PO DAILY 07/15/16 Reported Hydrochlorothiazide Capsule (Hydrochlorothiazide) 12.5 Mg Capsule 10 Mg PO BID 07/15/16 Reported Carvedilol 25 Mg Tablet 2 Tab PO [id number] 07/15/16 Reported Impression . IMPRESSION: 1. Acute respiratory failure. 2. Abnormal cxr 01/27 with bilateral infiltrates, suspect pneumonia, suspect gram negative/ ? CHF 3. suspect Acute on chronic heart failure. 4. End-stage renal disease, status post renal transplant. 5. Immunocompromised. 6. Accelerated hypertension. 7. Type 2 diabetes. 8. ACUTE DROP IN HGB Plan . BETTER TODAY PRN BIPAP F/U CXR TODAY DROP IN HGB MONITOR H/H D/W RENAL. CONSIDER TRANSFER TO [facility] KEENAN CORTEZ MD Jan 29, 2018 11:33
--- NOTE | 2018-01-29 11:34 | PDOC ---
PROGRESS NOTES Subjective Subjective HPI - f/u of Anemia, ROS - no CP Objective Objective Vital Signs Date Time Temp Pulse Resp B/P (MAP) Pulse Ox O2 Delivery O2 Flow Rate FiO2 01/29/18 09:10 91 166/61 01/29/18 07:37 Nasal Cannula 4.0 01/29/18 07:00 97.9 23 100 97.9 Intake and Output 01/29/18 07:00 Intake Total 2560 ml Output Total 600 ml Balance 1960 ml Intake Oral 2260 ml Other 300 ml Output Urine Total 600 ml Physical Exam Heart: Normal S1, Normal S2 General: Alert, Oriented X3 Lungs: Clear to auscultation Neuro: Normal speech Psych/Mental Status: Mental status NL Assessment Assessment Problems Medical Problems: (1) Hypertensive urgency Status: Acute (2) Intractable nausea and vomiting Status: Acute (3) Migraine headache Status: Acute IMPRESSION AND PLAN: 1. Anemia, progressively worse. This is multifactorial including underlying chronic kidney disease, worsening renal failure, pneumonia, congestive heart failure, antibiotics. His reticulocyte count is normal at 1.7 and hence I do not suspect hemolysis. There is no evidence of bleeding. I would continue to monitor hemoglobin and transfuse if the hemoglobin drops to below 7. Hb stable now at 7.4 on 01/29/18. Monitor cbc 2. Chronic kidney disease with worsening renal failure. Appreciate Nephrology consultation. The patient has a renal transplant in 2007 and he is on CellCept and Prograf. 3. Pneumonia. Appreciate ID and Pulmonary consultation. Comment Review of Relevant I have reviewed the following items nadiya (where applicable) has been applied. Labs Laboratory Tests Test 01/27/18 12:10 01/27/18 12:13 01/27/18 15:47 01/27/18 20:59 Urine Collection Type Unknown Urine Color Yellow Urine Clarity Clear Urine pH 5.0 Urine Specific [place] 1.020 Urine Protein 100 mg/dL (NEG-TRACE) Urine Glucose (UA) 100 mg/dL (NEG) Urine Ketones (Stick) Trace mg/dL (NEG) Urine Blood Negative (NEG) Urine Nitrite Negative (NEG) Urine Bilirubin Negative (NEG) Urine Urobilinogen Dipstick 0.2 mg/dL (0.2 mg/dL) Urine Leukocyte Esterase Moderate (NEG) Urine RBC 0 /HPF (0-2) Urine WBC >40 /HPF (0-4) Urine Squamous Epithelial Cells Few /LPF Urine Transitional Epithelial Cells Few /LPF Urine Amorphous Sediment Present /HPF Urine Bacteria 0 /HPF (0-FEW) Urine Hyaline Casts Moderate /HPF Urine Granular Casts Few /HPF Urine Waxy Casts Occasional /HPF Urine Mucus Mod /LPF Glucose (Fingerstick) 325 mg/dL (70-99) 263 mg/dL (70-99) 209 mg/dL (70-99) Test 01/28/18 02:50 01/28/18 07:06 01/28/18 11:33 01/28/18 16:41 White Blood Count 10.2 x10^3/uL (4.0-11.0) Red Blood Count 2.23 x10^6/uL (4.30-5.70) Hemoglobin 7.1 g/dL (13.0-17.5) Hematocrit 19.6 % (39.0-53.0) Mean Corpuscular Volume 88 fL (79-100) Mean Corpuscular Hemoglobin 32 pg (25-35) Mean Corpuscular Hemoglobin Concent 36 g/dL (31-37) Red Cell Distribution Width 13.4 % (11.5-14.5) Platelet Count 216 x10^3/uL (140-400) Neutrophils (%) (Auto) 72 % (31-73) Lymphocytes (%) (Auto) 15 % (24-48) Monocytes (%) (Auto) 12 % (0-9) Eosinophils (%) (Auto) 0 % (0-3) Basophils (%) (Auto) 1 % (0-3) Neutrophils # (Auto) 7.4 x10^3uL (1.8-7.7) Lymphocytes # (Auto) 1.5 x10^3/uL (1.0-4.8) Monocytes # (Auto) 1.2 x10^3/uL (0.0-1.1) Eosinophils # (Auto) 0.0 x10^3/uL (0.0-0.7) Basophils # (Auto) 0.0 x10^3/uL (0.0-0.2) Reticulocyte Count (auto) 1.7 % (0.5-2.5) Sodium Level 137 mmol/L (136-145) Potassium Level 3.7 mmol/L (3.5-5.1) Chloride Level 104 mmol/L (98-107) Carbon Dioxide Level 23 mmol/L (21-32) Anion Gap 10 (6-14) Blood Urea Nitrogen 37 mg/dL (8-26) Creatinine 3.7 mg/dL (0.7-1.3) Estimated GFR (Cockcroft-Gault) 17.5 Glucose Level 226 mg/dL (70-99) Calcium Level 8.7 mg/dL (8.5-10.1) Iron Level 12 ug/dL (65-175) Total Iron Binding Capacity 136 ug/dL (250-450) Iron Saturation 9 % (15-34) Ferritin 418 ng/mL (26-388) Glucose (Fingerstick) 233 mg/dL (70-99) 266 mg/dL (70-99) 281 mg/dL (70-99) Test 01/28/18 20:32 01/29/18 03:39 01/29/18 05:00 01/29/18 06:06 Glucose (Fingerstick) 295 mg/dL (70-99) 413 mg/dL (70-99) 311 mg/dL (70-99) White Blood Count 7.6 x10^3/uL (4.0-11.0) Red Blood Count 2.38 x10^6/uL (4.30-5.70) Hemoglobin 7.4 g/dL (13.0-17.5) Hematocrit 21.0 % (39.0-53.0) Mean Corpuscular Volume 88 fL (79-100) Mean Corpuscular Hemoglobin 31 pg (25-35) Mean Corpuscular Hemoglobin Concent 35 g/dL (31-37) Red Cell Distribution Width 13.4 % (11.5-14.5) Platelet Count 269 x10^3/uL (140-400) Neutrophils (%) (Auto) 79 % (31-73) Lymphocytes (%) (Auto) 12 % (24-48) Monocytes (%) (Auto) 7 % (0-9) Eosinophils (%) (Auto) 1 % (0-3) Basophils (%) (Auto) 0 % (0-3) Neutrophils # (Auto) 6.0 x10^3uL (1.8-7.7) Lymphocytes # (Auto) 0.9 x10^3/uL (1.0-4.8) Monocytes # (Auto) 0.6 x10^3/uL (0.0-1.1) Eosinophils # (Auto) 0.1 x10^3/uL (0.0-0.7) Basophils # (Auto) 0.0 x10^3/uL (0.0-0.2) Sodium Level 135 mmol/L (136-145) Potassium Level 3.4 mmol/L (3.5-5.1) Chloride Level 102 mmol/L (98-107) Carbon Dioxide Level 22 mmol/L (21-32) Anion Gap 11 (6-14) Blood Urea Nitrogen 43 mg/dL (8-26) Creatinine 4.4 mg/dL (0.7-1.3) Estimated GFR (Cockcroft-Gault) 14.3 Glucose Level 394 mg/dL (70-99) Calcium Level 8.5 mg/dL (8.5-10.1) Test 01/29/18 07:58 Glucose (Fingerstick) 248 mg/dL (70-99) Laboratory Tests Test 01/28/18 16:41 01/28/18 20:32 01/29/18 03:39 01/29/18 05:00 Glucose (Fingerstick) 281 mg/dL (70-99) 295 mg/dL (70-99) 413 mg/dL (70-99) White Blood Count 7.6 x10^3/uL (4.0-11.0) Red Blood Count 2.38 x10^6/uL (4.30-5.70) Hemoglobin 7.4 g/dL (13.0-17.5) Hematocrit 21.0 % (39.0-53.0) Mean Corpuscular Volume 88 fL (79-100) Mean Corpuscular Hemoglobin 31 pg (25-35) Mean Corpuscular Hemoglobin Concent 35 g/dL (31-37) Red Cell Distribution Width 13.4 % (11.5-14.5) Platelet Count 269 x10^3/uL (140-400) Neutrophils (%) (Auto) 79 % (31-73) Lymphocytes (%) (Auto) 12 % (24-48) Monocytes (%) (Auto) 7 % (0-9) Eosinophils (%) (Auto) 1 % (0-3) Basophils (%) (Auto) 0 % (0-3) Neutrophils # (Auto) 6.0 x10^3uL (1.8-7.7) Lymphocytes # (Auto) 0.9 x10^3/uL (1.0-4.8) Monocytes # (Auto) 0.6 x10^3/uL (0.0-1.1) Eosinophils # (Auto) 0.1 x10^3/uL (0.0-0.7) Basophils # (Auto) 0.0 x10^3/uL (0.0-0.2) Sodium Level 135 mmol/L (136-145) Potassium Level 3.4 mmol/L (3.5-5.1) Chloride Level 102 mmol/L (98-107) Carbon Dioxide Level 22 mmol/L (21-32) Anion Gap 11 (6-14) Blood Urea Nitrogen 43 mg/dL (8-26) Creatinine 4.4 mg/dL (0.7-1.3) Estimated GFR (Cockcroft-Gault) 14.3 Glucose Level 394 mg/dL (70-99) Calcium Level 8.5 mg/dL (8.5-10.1) Test 01/29/18 06:06 01/29/18 07:58 Glucose (Fingerstick) 311 mg/dL (70-99) 248 mg/dL (70-99) Microbiology 01/26/18 Blood Culture - Preliminary, Resulted NO GROWTH AFTER 2 DAYS 01/28/18 - Final, Resulted 01/28/18 - Final, Resulted 01/28/18 - Final, Resulted 01/28/18 - Final, Resulted 01/28/18 - Final, Resulted 01/28/18 Gram Stain Evaluation - Final, Resulted 01/28/18 Sputum Culture, Resulted Pending Medications Current Medications Sodium Chloride 1,000 ml @ 1,000 mls/hr Q1H IV Last administered on at 17:54; Start 01/23/18 at 17:21; Stop 01/23/18 at 18:20; Status DC Prochlorperazine Edisylate (Compazine) 10 mg 1X ONCE IV Last administered on 01/23/18at 17:55; Start 01/23/18 at 17:30; Stop 01/23/18 at 17:31; Status DC Diphenhydramine HCl (Benadryl) 25 mg 1X ONCE IVP Last administered on at 17:57; Start 01/23/18 at 17:30; Stop 01/23/18 at 17:31; Status DC Metoclopramide HCl (Reglan Vial) 10 mg 1X ONCE IV Last administered on at 19:24; Start 01/23/18 at 19:15; Stop 01/23/18 at 19:17; Status DC Diphenhydramine HCl (Benadryl) 25 mg 1X ONCE IVP Last administered on at 19:25; Start 01/23/18 at 19:15; Stop 01/23/18 at 19:17; Status DC Metoprolol Tartrate (Lopressor Vial) 5 mg 1X ONCE IVP Last administered on at 19:55; Start 01/23/18 at 19:45; Stop 01/23/18 at 19:46; Status DC Insulin Human Regular (HumuLIN R VIAL) 5 unit 1X ONCE IV Last administered on 01/23/18at 19:55; Start 01/23/18 at 19:45; Stop 01/23/18 at 19:46; Status DC Labetalol HCl (Normodyne Iv Push) 10 mg 1X ONCE IVP ; Start 01/23/18 at 20:30 ; Stop 01/23/18 at 20:31; Status DC Labetalol HCl (Normodyne Iv Push) 10 mg 1X ONCE IVP Last administered on 01/23at 22:29; Start 01/23/18 at 22:00; Stop 01/23/18 at 22:04; Status DC Ondansetron HCl (Zofran) 4 mg PRN Q8HRS PRN IV NAUSEA/VOMITING Last administered on 01/24/18at 00:16; Start 01/23/18 at 22:45; Stop 01/24/18 at 03 :05; Status DC Fentanyl Citrate (Fentanyl 2ml Vial) 50 mcg PRN Q2HR PRN IV PAIN Last administered on 01/24/18at 19:48; Start 01/23/18 at 22:45; Stop 01/24/18 at 22 :44; Status DC Sodium Chloride 1,000 ml @ 100 mls/hr Q10H IV Last administered on 01/24/18at 19:56; Start 01/23/18 at 22:37; Stop 01/24/18 at 22:36; Status DC Labetalol HCl (Normodyne Iv Push) 10 mg PRN Q30MIN PRN IVP SBP>180 Last administered on 01/24/18at 00:07; Start 01/23/18 at 22:45; Stop 01/24/18 at 00 :49; Status DC Insulin Human Lispro (HumaLOG) 0-5 UNITS TIDWMEALS SQ Last administered on at 09:27; Start 01/24/18 at 08:00 Dextrose (Dextrose 50%-Water Syringe) 12.5 gm PRN Q15MIN PRN IV SEE COMMENTS; Start 01/23/18 at 23:00 Labetalol HCl (Normodyne Iv Push) 20 mg PRN Q2HR PRN IVP HYPERTENSION, SEE COMMENTS Last administered on 01/24/18at 02:12; Start 01/24/18 at 00:45; Stop 01/25/18 at 14:21; Status DC Carvedilol (Coreg) 6.25 mg 1X ONCE PO ; Start 01/24/18 at 00:45; Stop at 00:49; Status DC Amlodipine Besylate (Norvasc) 5 mg 1X ONCE PO Last administered on 01/24/18at 01:00; Start 01/24/18 at 00:45; Stop 01/24/18 at 00:49; Status DC Oxycodone/ Acetaminophen (Percocet 5/325) 1 tab PRN Q4HRS PRN PO PAIN; Start 01/24/18 at 01:00 Carvedilol (Coreg) 12.5 mg 1X ONCE PO Last administered on 01/24/18at 01:05; Start 01/24/18 at 01:00; Stop 01/24/18 at 01:04; Status DC Nicardipine HCl 50 mg/Sodium Chloride 270 ml @ 32.4 mls/hr CONT PRN IV SEE I/ O RECORD Last administered on 01/27/18at 05:03; Start 01/24/18 at 03:00 Acetaminophen (Tylenol) 650 mg PRN Q6HRS PRN PEG MILD PAIN / TEMP; Start 01/24 at 03:15; Status Cancel Ondansetron HCl (Zofran) 4 mg PRN Q6HRS PRN IV NAUSEA/VOMITING, 1ST CHOICE Last administered on 01/26/18at 22:04; Start 01/24/18 at 03:15 Metoclopramide HCl (Reglan Vial) 5 mg PRN Q6HRS PRN IV NAUSEA/VOMITING, 3RD CHOICE Last administered on 01/25/18at 11:53; Start 01/24/18 at 03:15; Stop at 15:35; Status DC Prochlorperazine Edisylate (Compazine) 10 mg PRN Q6HRS PRN IV NAUSEA/VOMITING, 2ND CHOICE Last administered on 01/27/18at 06:31; Start 01/24/18 at 03:15 Pantoprazole Sodium (Protonix) 40 mg 1X ONCE PO Last administered on at 03:13; Start 01/24/18 at 03:30; Stop 01/24/18 at 03:31; Status DC Acetaminophen (Tylenol) 650 mg PRN Q6HRS PRN PO MIGRAINE HEADACHE Last administered on 01/27/18at 18:54; Start 01/24/18 at 03:15 Insulin Human Lispro (HumaLOG) 10 units 1X ONCE SQ Last administered on at 05:09; Start 01/24/18 at 05:00; Stop 01/24/18 at 05:02; Status DC Magnesium Sulfate/ Dextrose 100 ml @ 100 mls/hr 1X ONCE IV Last administered on 01/24/18at 12:01; Start 01/24/18 at 09:15; Stop 01/24/18 at 10:14; Status DC Metoprolol Tartrate (Lopressor Vial) 5 mg Q6HRS IVP Last administered on at 11:08; Start 01/24/18 at 11:00; Stop 01/25/18 at 11:41; Status DC Trimethobenzamide HCl (Tigan Im) 200 mg PRN Q6HRS PRN IM NAUSEA/VOMITING; Start 01/24/18 at 11:00 Morphine Sulfate (Morphine Sulfate) 2 mg PRN Q2HR PRN IV MODERATE PAIN; Start 01/24/18 at 11:00 Amlodipine Besylate (Norvasc) 5 mg DAILY PO Last administered on 01/29/18at 09: 10; Start 01/24/18 at 11:30 Clonidine HCl (Catapres) 0.2 mg BID PO Last administered on 01/29/18at 09:09; Start 01/24/18 at 11:30 Clopidogrel Bisulfate (Plavix) 75 mg DAILY PO Last administered on 01/29/18at 09:10; Start 01/24/18 at 11:30 Insulin Glargine (Lantus) 4 units DAILYWBKFT SQ ; Start 01/24/18 at 11:30; Stop 01/24/18 at 11:30; Status DC Insulin Glargine (Lantus) 4 units QHS SQ ; Start 01/24/18 at 21:00; Status UNV Carvedilol (Coreg) 25 mg BIDWMEALS PO Last administered on 01/29/18at 09:09; Start 01/24/18 at 17:00 Non-Formulary Medication (Hydrochlorothiazide (Hydrochlorothiazide Capsule ) ) 10 mg BID PO ; Start 01/24/18 at 21:00; Stop 01/24/18 at 21:00; Status DC Mycophenolate Mofetil (Cellcept) 250 mg BID PO Last administered on 01/24/18at 12:01; Start 01/24/18 at 12:00; Stop 01/24/18 at 15:58; Status DC Pantoprazole Sodium (Protonix) 40 mg DAILYAC PO ; Start 01/24/18 at 11:30; Stop 01/24/18 at 12:01; Status DC Tacrolimus (Prograf) 2 mg BID PO Last administered on 01/24/18at 12:02; Start 01/24/18 at 12:00; Stop 01/24/18 at 13:07; Status DC Insulin Glargine (Lantus) 4 units BID SQ Last administered on 01/29/18at 09:27 ; Start 01/24/18 at 11:30; Stop 01/29/18 at 11:29; Status DC Pantoprazole Sodium (PROTONIX VIAL for IV PUSH) 40 mg DAILYAC IVP Last administered on 01/25/18at 09:34; Start 01/24/18 at 13:00; Stop 01/25/18 at 15 :35; Status DC Tacrolimus (Prograf) 4 mg DAILY PO ; Start 01/25/18 at 09:00; Stop 01/25/18 at 09:00; Status DC Tacrolimus (Prograf) 3 mg QHS PO ; Start 01/24/18 at 21:00; Stop 01/24/18 at 21:00; Status DC Tacrolimus (Prograf) 2 mg DAILY SL Last administered on 01/27/18at 07:59; Start 01/25/18 at 09:00; Stop 01/27/18 at 17:15; Status DC Tacrolimus (Prograf) 1 mg QHS SL Last administered on 01/26/18at 21:33; Start 01/24/18 at 21:00; Stop 01/27/18 at 17:13; Status DC Sodium Chloride (Saline Mist Nasal) 1 bryan PRN Q1HR PRN NS NASAL CONGESTION; Start 01/24/18 at 15:00; Stop 01/24/18 at 17:28; Status DC Gabapentin (Neurontin) 100 mg TID PO Last administered on 01/29/18at 09:09; Start 01/24/18 at 16:00 Mycophenolate Mofetil 250 mg/ Dextrose 42 ml @ 21 mls/hr Q12H IV Last administered on 01/27/18at 09:33; Start 01/24/18 at 21:00; Stop 01/27/18 at 14 :11; Status DC Tacrolimus (Prograf) 0.5 mg QHS SL Last administered on 01/26/18at 21:33; Start 01/24/18 at 21:00; Stop 01/27/18 at 17:13; Status DC Sodium Chloride (Saline Mist Nasal) 1 bryan PRN Q1HR PRN NS NASAL CONGESTION; Start 01/24/18 at 17:30 Sodium Chloride 1,000 ml @ 75 mls/hr [id number] IV ; Start 01/25/18 at 07:30; Stop 01/27/18 at 15:58; Status DC Fentanyl Citrate (Fentanyl 2ml Vial) 50 mcg PRN Q3HRS PRN IV SEVERE PAIN Last administered on 01/26/18at 22:05; Start 01/25/18 at 09:15 Sodium Chloride 1,000 ml @ 75 mls/hr [id number] IV Last administered on at 09:35; Start 01/25/18 at 09:15; Stop 01/27/18 at 15:58; Status DC Metoprolol Tartrate (Lopressor Vial) 7.5 mg Q6HRS IVP ; Start 01/25/18 at 18:00 ; Stop 01/25/18 at 18:00; Status DC Clonidine HCl (Catapres Tts-3) 1 patch WEEKLY TD Last administered on at 14:02; Start 01/25/18 at 13:00 Labetalol HCl (Normodyne Iv Push) 20 mg PRN Q4HRS PRN IVP HYPERTENSION, SEE COMMENTS Last administered on 01/25/18at 14:05; Start 01/25/18 at 13:00 Ringer's Solution 1,000 ml @ 30 mls/hr Q24H IV ; Start 01/25/18 at 15:15; Status Cancel Propofol 20 ml @ As Directed STK-MED ONCE IV ; Start 01/25/18 at 15:07; Stop 01/25/18 at 15:08; Status DC Lidocaine HCl (Xylocaine-Mpf 1% 2ml Vial) 2 ml STK-MED ONCE .ROUTE ; Start at 15:07; Stop 01/25/18 at 15:08; Status DC Sodium Chloride 1,000 ml @ 0 mls/hr Q0M IV Last administered on 01/25/18at 15: 13; Start 01/25/18 at 15:15; Stop 01/25/18 at 15:43; Status DC Metoclopramide HCl (Reglan Vial) 5 mg Q6HRS IV Last administered on 01/28/18at 06:02; Start 01/25/18 at 18:00; Stop 01/28/18 at 09:59; Status DC Pantoprazole Sodium (PROTONIX VIAL for IV PUSH) 40 mg BIDAC IVP Last administered on 01/28/18at 08:59; Start 01/25/18 at 16:30; Stop 01/28/18 at 09 :59; Status DC Levofloxacin/ Dextrose 100 ml @ 100 mls/hr Q24H IV ; Start 01/26/18 at 08:30; Stop 01/26/18 at 09:32; Status DC Levalbuterol HCl (Xopenex) 1.25 mg PRN Q6HRS PRN NEB SHORTNESS OF BREATH Last administered on 01/27/18at 12:19; Start 01/26/18 at 08:45 Piperacillin Sod/ Tazobactam Sod (Zosyn Per Pharmacy) 1 each PRN DAILY PRN MC SEE COMMENTS; Start 01/26/18 at 10:00; Stop 01/28/18 at 10:56; Status DC Furosemide (Lasix) 40 mg DAILY IVP Last administered on 01/28/18at 08:59; Start 01/26/18 at 10:30 Piperacillin Sod/ Tazobactam Sod 3.375 gm/Sodium Chloride 50 ml @ 100 mls/hr Q6HRS IV Last administered on 01/28/18at 06:03; Start 01/26/18 at 11:00; Stop 01/28/18 at 10:46; Status DC Linezolid/Dextrose 300 ml @ 300 mls/hr Q12HR IV Last administered on at 09:10; Start 01/27/18 at 10:00 Mycophenolate Mofetil (Cellcept) 250 mg BID PO Last administered on 01/29/18at 09:08; Start 01/27/18 at 21:00 Tacrolimus (Prograf) 3 mg QHS PO Last administered on 01/28/18at 21:16; Start 01/27/18 at 21:00 Tacrolimus (Prograf) 4 mg DAILY PO Last administered on 01/29/18at 09:08; Start 01/28/18 at 09:00 Doxycycline Hyclate (Vibra-Tab) 100 mg BID PO Last administered on 01/28/18at 09:06; Start 01/28/18 at 09:00; Stop 01/28/18 at 10:52; Status DC Metoclopramide HCl (Reglan Vial) 5 mg QIDACHS IV ; Start 01/28/18 at 11:30; Stop 01/28/18 at 11:30; Status DC Pantoprazole Sodium (Protonix) 40 mg BIDAC PO Last administered on 01/29/18at 09:09; Start 01/28/18 at 10:30 Metoclopramide HCl (Reglan Oral Solution) 5 mg QIDACHS PO Last administered on 01/29/18at 09:08; Start 01/28/18 at 11:30 Cefepime HCl 1 gm/ Dextrose 50 ml @ 100 mls/hr DAILY IV ; Start 01/29/18 at 09 :00; Status UNV Cefepime HCl (Maxipime) 1 gm DAILY IVP Last administered on 01/29/18at 09:10; Start 01/28/18 at 12:00 Insulin Human Lispro (HumaLOG) 20 units 1X ONCE SQ Last administered on at 04:39; Start 01/29/18 at 05:00; Stop 01/29/18 at 05:01; Status DC Insulin Glargine (Lantus) 20 units TID SQ ; Start 01/29/18 at 14:00; Stop at 14:00; Status DC Insulin Human Lispro (HumaLOG) 10 units TIDAC SQ ; Start 01/29/18 at 11:30 Insulin Glargine (Lantus) 20 units QHS SQ ; Start 01/29/18 at 21:00 Active Scripts Active Oxycodone-Acetaminophen 5-325 (Oxycodone Hcl/Acetaminophen) 1 Each Tablet 1 Tab PO PRN Q4HRS PRN Reported Prograf (Tacrolimus) 1 Mg Capsule 3 Cap PO QHS Prograf (Tacrolimus) 1 Mg Capsule 4 Cap PO DAILY Lantus Solostar (Insulin Glargine,Hum.rec.anlog) 100 Unit/1 Ml Insuln.pen 4 Unit SQ [id number] Lantus Solostar (Insulin Glargine,Hum.rec.anlog) 100 Unit/1 Ml Insuln.pen 4 Unit SQ QHS Amlodipine Besylate 5 Mg Tablet 5 Mg PO DAILY Clonidine Hcl 0.2 Mg Tablet 1 Tab PO BID Clopidogrel (Clopidogrel Bisulfate) 75 Mg Tablet 1 Tab PO DAILY Cellcept (Mycophenolate Mofetil) 250 Mg Capsule 1 Cap PO BID Pantoprazole Sodium 20 Mg Tablet.dr 20 Mg PO DAILY Hydrochlorothiazide Capsule (Hydrochlorothiazide) 12.5 Mg Capsule 10 Mg PO BID Carvedilol 25 Mg Tablet 2 Tab PO DAILYBFRSUP Vitals/I & O Vital Sign - Last 24 Hours 01/28/18 01/28/18 01/28/18 01/28/18 14:52 17:19 19:10 20:00 Temp 99.0 98.0 99.0 98.0 Pulse 86 95 88 Resp 20 20 B/P (MAP) 141/61 (87) 131/60 (83) Pulse Ox 100 99 O2 Delivery BiPAP/CPAP Nasal Cannula Nasal Cannula O2 Flow Rate 4.0 4.0 01/28/18 01/28/18 01/28/18 01/28/18 20:50 22:00 23:35 23:55 Temp 98.1 98.1 Pulse 88 84 Resp 20 B/P (MAP) 131/60 153/54 (87) Pulse Ox 100 100 100 O2 Delivery BiPAP/CPAP BiPAP/CPAP BiPAP/CPAP 01/29/18 01/29/18 01/29/18 01/29/18 01:55 03:40 03:55 07:00 Temp 97.9 97.9 97.9 97.9 Pulse 85 85 Resp 18 23 B/P (MAP) 161/65 (97) 166/61 (96) Pulse Ox 100 100 100 100 O2 Delivery BiPAP/CPAP BiPAP/CPAP BiPAP/CPAP BiPAP/CPAP 01/29/18 01/29/18 01/29/18 01/29/18 07:37 09:09 09:09 09:10 Pulse 92 91 91 B/P (MAP) 166/61 166/61 166/61 O2 Delivery Nasal Cannula O2 Flow Rate 4.0 Intake and Output 01/28/18 01/28/18 01/29/18 15:00 23:00 07:00 Intake Total 0 ml 900 ml 1660 ml Output Total 350 ml 250 ml Balance 0 ml 550 ml 1410 ml LUDIN GARCIA MD Jan 29, 2018 11:34
--- NOTE | 2018-01-29 11:35 | PDOC ---
PROGRESS NOTES Chief Complaint Chief Complaint JAMAL due to dehydration Hospital aquired pneumonia Uncontrolled HTN Cluster headache H/o renal transplant: 2007 H/o DM1/HLP: per PCP H/o CAD History of Present Illness History of Present Illness Pt seen and examined. Pt lying in bed. 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 Pt says he is feeling better than yesterday. He says that his MARTÍNEZ has fully resolved. Vitals Vitals Vital Signs Date Time Temp Pulse Resp B/P (MAP) Pulse Ox O2 Delivery O2 Flow Rate FiO2 01/29/18 09:10 91 166/61 01/29/18 07:37 Nasal Cannula 4.0 01/29/18 07:00 97.9 23 100 97.9 Physical Exam Physical Exam GENERAL: The patient is layin in bed, axox3 HEENT: Left eye prosthesis. Oral cavity, pharynx pink, dry. No lesions seen. NECK: Supple. LUNGS: dec bs at bases, no wheezing HEART: S1 and S2. ABDOMEN: Bowel sounds active. Soft, nontender. gu connell in place with clear urine EXTREMITIES: [id number] amputation bilaterally. No cyanosis. SKIN: Warm, without rash. NEUROLOGIC: Alert and oriented x 3. General: Alert, Oriented X3, Cooperative, mild distress Heart: Regular rate, Normal S1, Normal S2 Lungs: Clear Abdomen: Normal bowel sounds, Soft Extremities: No clubbing, No cyanosis, Other (bilateral BKAs) Skin: No rashes, No breakdown, No significant lesion Labs LABS Laboratory Tests Test 01/28/18 11:33 01/28/18 16:41 01/28/18 20:32 01/29/18 03:39 Glucose (Fingerstick) 266 mg/dL (70-99) 281 mg/dL (70-99) 295 mg/dL (70-99) 413 mg/dL (70-99) Test 01/29/18 05:00 01/29/18 06:06 01/29/18 07:58 White Blood Count 7.6 x10^3/uL (4.0-11.0) Red Blood Count 2.38 x10^6/uL (4.30-5.70) Hemoglobin 7.4 g/dL (13.0-17.5) Hematocrit 21.0 % (39.0-53.0) Mean Corpuscular Volume 88 fL (79-100) Mean Corpuscular Hemoglobin 31 pg (25-35) Mean Corpuscular Hemoglobin Concent 35 g/dL (31-37) Red Cell Distribution Width 13.4 % (11.5-14.5) Platelet Count 269 x10^3/uL (140-400) Neutrophils (%) (Auto) 79 % (31-73) Lymphocytes (%) (Auto) 12 % (24-48) Monocytes (%) (Auto) 7 % (0-9) Eosinophils (%) (Auto) 1 % (0-3) Basophils (%) (Auto) 0 % (0-3) Neutrophils # (Auto) 6.0 x10^3uL (1.8-7.7) Lymphocytes # (Auto) 0.9 x10^3/uL (1.0-4.8) Monocytes # (Auto) 0.6 x10^3/uL (0.0-1.1) Eosinophils # (Auto) 0.1 x10^3/uL (0.0-0.7) Basophils # (Auto) 0.0 x10^3/uL (0.0-0.2) Sodium Level 135 mmol/L (136-145) Potassium Level 3.4 mmol/L (3.5-5.1) Chloride Level 102 mmol/L (98-107) Carbon Dioxide Level 22 mmol/L (21-32) Anion Gap 11 (6-14) Blood Urea Nitrogen 43 mg/dL (8-26) Creatinine 4.4 mg/dL (0.7-1.3) Estimated GFR (Cockcroft-Gault) 14.3 Glucose Level 394 mg/dL (70-99) Calcium Level 8.5 mg/dL (8.5-10.1) Glucose (Fingerstick) 311 mg/dL (70-99) 248 mg/dL (70-99) Review of Systems Review of Systems Pt denies MARTÍNEZ, CP, SOA. Assessment and Plan Assessmemt and Plan Problems Medical Problems: (1) Hypertensive urgency Status: Acute (2) Intractable nausea and vomiting Status: Acute (3) Migraine headache Status: Acute Assessment: JAMAL due to dehydration Hospital aquired pneumonia Hypokalemia - nephrology following Uncontrolled HTN Cluster headache H/o renal transplant: 2007 H/o DM1/HLP: per PCP H/o CAD Plan: Cardiac monitoring Monitor labs Home meds IV abx PT/OT Venti-mask at 50% on 15 L O2 Appreciate subspecialist input DVT ppx Comment Review of Relevant I have reviewed the following items nadiya (where applicable) has been applied. Labs Laboratory Tests Test 01/27/18 12:10 01/27/18 12:13 01/27/18 15:47 01/27/18 20:59 Urine Collection Type Unknown Urine Color Yellow Urine Clarity Clear Urine pH 5.0 Urine Specific [place] 1.020 Urine Protein 100 mg/dL (NEG-TRACE) Urine Glucose (UA) 100 mg/dL (NEG) Urine Ketones (Stick) Trace mg/dL (NEG) Urine Blood Negative (NEG) Urine Nitrite Negative (NEG) Urine Bilirubin Negative (NEG) Urine Urobilinogen Dipstick 0.2 mg/dL (0.2 mg/dL) Urine Leukocyte Esterase Moderate (NEG) Urine RBC 0 /HPF (0-2) Urine WBC >40 /HPF (0-4) Urine Squamous Epithelial Cells Few /LPF Urine Transitional Epithelial Cells Few /LPF Urine Amorphous Sediment Present /HPF Urine Bacteria 0 /HPF (0-FEW) Urine Hyaline Casts Moderate /HPF Urine Granular Casts Few /HPF Urine Waxy Casts Occasional /HPF Urine Mucus Mod /LPF Glucose (Fingerstick) 325 mg/dL (70-99) 263 mg/dL (70-99) 209 mg/dL (70-99) Test 01/28/18 02:50 01/28/18 07:06 01/28/18 11:33 01/28/18 16:41 White Blood Count 10.2 x10^3/uL (4.0-11.0) Red Blood Count 2.23 x10^6/uL (4.30-5.70) Hemoglobin 7.1 g/dL (13.0-17.5) Hematocrit 19.6 % (39.0-53.0) Mean Corpuscular Volume 88 fL (79-100) Mean Corpuscular Hemoglobin 32 pg (25-35) Mean Corpuscular Hemoglobin Concent 36 g/dL (31-37) Red Cell Distribution Width 13.4 % (11.5-14.5) Platelet Count 216 x10^3/uL (140-400) Neutrophils (%) (Auto) 72 % (31-73) Lymphocytes (%) (Auto) 15 % (24-48) Monocytes (%) (Auto) 12 % (0-9) Eosinophils (%) (Auto) 0 % (0-3) Basophils (%) (Auto) 1 % (0-3) Neutrophils # (Auto) 7.4 x10^3uL (1.8-7.7) Lymphocytes # (Auto) 1.5 x10^3/uL (1.0-4.8) Monocytes # (Auto) 1.2 x10^3/uL (0.0-1.1) Eosinophils # (Auto) 0.0 x10^3/uL (0.0-0.7) Basophils # (Auto) 0.0 x10^3/uL (0.0-0.2) Reticulocyte Count (auto) 1.7 % (0.5-2.5) Sodium Level 137 mmol/L (136-145) Potassium Level 3.7 mmol/L (3.5-5.1) Chloride Level 104 mmol/L (98-107) Carbon Dioxide Level 23 mmol/L (21-32) Anion Gap 10 (6-14) Blood Urea Nitrogen 37 mg/dL (8-26) Creatinine 3.7 mg/dL (0.7-1.3) Estimated GFR (Cockcroft-Gault) 17.5 Glucose Level 226 mg/dL (70-99) Calcium Level 8.7 mg/dL (8.5-10.1) Iron Level 12 ug/dL (65-175) Total Iron Binding Capacity 136 ug/dL (250-450) Iron Saturation 9 % (15-34) Ferritin 418 ng/mL (26-388) Glucose (Fingerstick) 233 mg/dL (70-99) 266 mg/dL (70-99) 281 mg/dL (70-99) Test 01/28/18 20:32 01/29/18 03:39 01/29/18 05:00 01/29/18 06:06 Glucose (Fingerstick) 295 mg/dL (70-99) 413 mg/dL (70-99) 311 mg/dL (70-99) White Blood Count 7.6 x10^3/uL (4.0-11.0) Red Blood Count 2.38 x10^6/uL (4.30-5.70) Hemoglobin 7.4 g/dL (13.0-17.5) Hematocrit 21.0 % (39.0-53.0) Mean Corpuscular Volume 88 fL (79-100) Mean Corpuscular Hemoglobin 31 pg (25-35) Mean Corpuscular Hemoglobin Concent 35 g/dL (31-37) Red Cell Distribution Width 13.4 % (11.5-14.5) Platelet Count 269 x10^3/uL (140-400) Neutrophils (%) (Auto) 79 % (31-73) Lymphocytes (%) (Auto) 12 % (24-48) Monocytes (%) (Auto) 7 % (0-9) Eosinophils (%) (Auto) 1 % (0-3) Basophils (%) (Auto) 0 % (0-3) Neutrophils # (Auto) 6.0 x10^3uL (1.8-7.7) Lymphocytes # (Auto) 0.9 x10^3/uL (1.0-4.8) Monocytes # (Auto) 0.6 x10^3/uL (0.0-1.1) Eosinophils # (Auto) 0.1 x10^3/uL (0.0-0.7) Basophils # (Auto) 0.0 x10^3/uL (0.0-0.2) Sodium Level 135 mmol/L (136-145) Potassium Level 3.4 mmol/L (3.5-5.1) Chloride Level 102 mmol/L (98-107) Carbon Dioxide Level 22 mmol/L (21-32) Anion Gap 11 (6-14) Blood Urea Nitrogen 43 mg/dL (8-26) Creatinine 4.4 mg/dL (0.7-1.3) Estimated GFR (Cockcroft-Gault) 14.3 Glucose Level 394 mg/dL (70-99) Calcium Level 8.5 mg/dL (8.5-10.1) Test 01/29/18 07:58 Glucose (Fingerstick) 248 mg/dL (70-99) Laboratory Tests Test 01/28/18 11:33 01/28/18 16:41 01/28/18 20:32 01/29/18 03:39 Glucose (Fingerstick) 266 mg/dL (70-99) 281 mg/dL (70-99) 295 mg/dL (70-99) 413 mg/dL (70-99) Test 01/29/18 05:00 01/29/18 06:06 01/29/18 07:58 White Blood Count 7.6 x10^3/uL (4.0-11.0) Red Blood Count 2.38 x10^6/uL (4.30-5.70) Hemoglobin 7.4 g/dL (13.0-17.5) Hematocrit 21.0 % (39.0-53.0) Mean Corpuscular Volume 88 fL (79-100) Mean Corpuscular Hemoglobin 31 pg (25-35) Mean Corpuscular Hemoglobin Concent 35 g/dL (31-37) Red Cell Distribution Width 13.4 % (11.5-14.5) Platelet Count 269 x10^3/uL (140-400) Neutrophils (%) (Auto) 79 % (31-73) Lymphocytes (%) (Auto) 12 % (24-48) Monocytes (%) (Auto) 7 % (0-9) Eosinophils (%) (Auto) 1 % (0-3) Basophils (%) (Auto) 0 % (0-3) Neutrophils # (Auto) 6.0 x10^3uL (1.8-7.7) Lymphocytes # (Auto) 0.9 x10^3/uL (1.0-4.8) Monocytes # (Auto) 0.6 x10^3/uL (0.0-1.1) Eosinophils # (Auto) 0.1 x10^3/uL (0.0-0.7) Basophils # (Auto) 0.0 x10^3/uL (0.0-0.2) Sodium Level 135 mmol/L (136-145) Potassium Level 3.4 mmol/L (3.5-5.1) Chloride Level 102 mmol/L (98-107) Carbon Dioxide Level 22 mmol/L (21-32) Anion Gap 11 (6-14) Blood Urea Nitrogen 43 mg/dL (8-26) Creatinine 4.4 mg/dL (0.7-1.3) Estimated GFR (Cockcroft-Gault) 14.3 Glucose Level 394 mg/dL (70-99) Calcium Level 8.5 mg/dL (8.5-10.1) Glucose (Fingerstick) 311 mg/dL (70-99) 248 mg/dL (70-99) Microbiology 01/26/18 Blood Culture - Preliminary, Resulted NO GROWTH AFTER 2 DAYS 01/28/18 - Final, Resulted 01/28/18 - Final, Resulted 01/28/18 - Final, Resulted 01/28/18 - Final, Resulted 01/28/18 - Final, Resulted 01/28/18 Gram Stain Evaluation - Final, Resulted 01/28/18 Sputum Culture, Resulted Pending Medications Current Medications Sodium Chloride 1,000 ml @ 1,000 mls/hr Q1H IV Last administered on at 17:54; Start 01/23/18 at 17:21; Stop 01/23/18 at 18:20; Status DC Prochlorperazine Edisylate (Compazine) 10 mg 1X ONCE IV Last administered on 01/23/18at 17:55; Start 01/23/18 at 17:30; Stop 01/23/18 at 17:31; Status DC Diphenhydramine HCl (Benadryl) 25 mg 1X ONCE IVP Last administered on at 17:57; Start 01/23/18 at 17:30; Stop 01/23/18 at 17:31; Status DC Metoclopramide HCl (Reglan Vial) 10 mg 1X ONCE IV Last administered on at 19:24; Start 01/23/18 at 19:15; Stop 01/23/18 at 19:17; Status DC Diphenhydramine HCl (Benadryl) 25 mg 1X ONCE IVP Last administered on at 19:25; Start 01/23/18 at 19:15; Stop 01/23/18 at 19:17; Status DC Metoprolol Tartrate (Lopressor Vial) 5 mg 1X ONCE IVP Last administered on at 19:55; Start 01/23/18 at 19:45; Stop 01/23/18 at 19:46; Status DC Insulin Human Regular (HumuLIN R VIAL) 5 unit 1X ONCE IV Last administered on 01/23/18at 19:55; Start 01/23/18 at 19:45; Stop 01/23/18 at 19:46; Status DC Labetalol HCl (Normodyne Iv Push) 10 mg 1X ONCE IVP ; Start 01/23/18 at 20:30 ; Stop 01/23/18 at 20:31; Status DC Labetalol HCl (Normodyne Iv Push) 10 mg 1X ONCE IVP Last administered on 01/23at 22:29; Start 01/23/18 at 22:00; Stop 01/23/18 at 22:04; Status DC Ondansetron HCl (Zofran) 4 mg PRN Q8HRS PRN IV NAUSEA/VOMITING Last administered on 01/24/18at 00:16; Start 01/23/18 at 22:45; Stop 01/24/18 at 03 :05; Status DC Fentanyl Citrate (Fentanyl 2ml Vial) 50 mcg PRN Q2HR PRN IV PAIN Last administered on 01/24/18at 19:48; Start 01/23/18 at 22:45; Stop 01/24/18 at 22 :44; Status DC Sodium Chloride 1,000 ml @ 100 mls/hr Q10H IV Last administered on 01/24/18at 19:56; Start 01/23/18 at 22:37; Stop 01/24/18 at 22:36; Status DC Labetalol HCl (Normodyne Iv Push) 10 mg PRN Q30MIN PRN IVP SBP>180 Last administered on 01/24/18at 00:07; Start 01/23/18 at 22:45; Stop 01/24/18 at 00 :49; Status DC Insulin Human Lispro (HumaLOG) 0-5 UNITS TIDWMEALS SQ Last administered on at 09:27; Start 01/24/18 at 08:00 Dextrose (Dextrose 50%-Water Syringe) 12.5 gm PRN Q15MIN PRN IV SEE COMMENTS; Start 01/23/18 at 23:00 Labetalol HCl (Normodyne Iv Push) 20 mg PRN Q2HR PRN IVP HYPERTENSION, SEE COMMENTS Last administered on 01/24/18at 02:12; Start 01/24/18 at 00:45; Stop 01/25/18 at 14:21; Status DC Carvedilol (Coreg) 6.25 mg 1X ONCE PO ; Start 01/24/18 at 00:45; Stop at 00:49; Status DC Amlodipine Besylate (Norvasc) 5 mg 1X ONCE PO Last administered on 01/24/18at 01:00; Start 01/24/18 at 00:45; Stop 01/24/18 at 00:49; Status DC Oxycodone/ Acetaminophen (Percocet 5/325) 1 tab PRN Q4HRS PRN PO PAIN; Start 01/24/18 at 01:00 Carvedilol (Coreg) 12.5 mg 1X ONCE PO Last administered on 01/24/18at 01:05; Start 01/24/18 at 01:00; Stop 01/24/18 at 01:04; Status DC Nicardipine HCl 50 mg/Sodium Chloride 270 ml @ 32.4 mls/hr CONT PRN IV SEE I/ O RECORD Last administered on 01/27/18at 05:03; Start 01/24/18 at 03:00 Acetaminophen (Tylenol) 650 mg PRN Q6HRS PRN PEG MILD PAIN / TEMP; Start 01/24 at 03:15; Status Cancel Ondansetron HCl (Zofran) 4 mg PRN Q6HRS PRN IV NAUSEA/VOMITING, 1ST CHOICE Last administered on 01/26/18at 22:04; Start 01/24/18 at 03:15 Metoclopramide HCl (Reglan Vial) 5 mg PRN Q6HRS PRN IV NAUSEA/VOMITING, 3RD CHOICE Last administered on 01/25/18at 11:53; Start 01/24/18 at 03:15; Stop at 15:35; Status DC Prochlorperazine Edisylate (Compazine) 10 mg PRN Q6HRS PRN IV NAUSEA/VOMITING, 2ND CHOICE Last administered on 01/27/18at 06:31; Start 01/24/18 at 03:15 Pantoprazole Sodium (Protonix) 40 mg 1X ONCE PO Last administered on at 03:13; Start 01/24/18 at 03:30; Stop 01/24/18 at 03:31; Status DC Acetaminophen (Tylenol) 650 mg PRN Q6HRS PRN PO MIGRAINE HEADACHE Last administered on 01/27/18at 18:54; Start 01/24/18 at 03:15 Insulin Human Lispro (HumaLOG) 10 units 1X ONCE SQ Last administered on at 05:09; Start 01/24/18 at 05:00; Stop 01/24/18 at 05:02; Status DC Magnesium Sulfate/ Dextrose 100 ml @ 100 mls/hr 1X ONCE IV Last administered on 01/24/18at 12:01; Start 01/24/18 at 09:15; Stop 01/24/18 at 10:14; Status DC Metoprolol Tartrate (Lopressor Vial) 5 mg Q6HRS IVP Last administered on at 11:08; Start 01/24/18 at 11:00; Stop 01/25/18 at 11:41; Status DC Trimethobenzamide HCl (Tigan Im) 200 mg PRN Q6HRS PRN IM NAUSEA/VOMITING; Start 01/24/18 at 11:00 Morphine Sulfate (Morphine Sulfate) 2 mg PRN Q2HR PRN IV MODERATE PAIN; Start 01/24/18 at 11:00 Amlodipine Besylate (Norvasc) 5 mg DAILY PO Last administered on 01/29/18at 09: 10; Start 01/24/18 at 11:30 Clonidine HCl (Catapres) 0.2 mg BID PO Last administered on 01/29/18at 09:09; Start 01/24/18 at 11:30 Clopidogrel Bisulfate (Plavix) 75 mg DAILY PO Last administered on 01/29/18at 09:10; Start 01/24/18 at 11:30 Insulin Glargine (Lantus) 4 units DAILYWBKFT SQ ; Start 01/24/18 at 11:30; Stop 01/24/18 at 11:30; Status DC Insulin Glargine (Lantus) 4 units QHS SQ ; Start 01/24/18 at 21:00; Status UNV Carvedilol (Coreg) 25 mg BIDWMEALS PO Last administered on 01/29/18at 09:09; Start 01/24/18 at 17:00 Non-Formulary Medication (Hydrochlorothiazide (Hydrochlorothiazide Capsule ) ) 10 mg BID PO ; Start 01/24/18 at 21:00; Stop 01/24/18 at 21:00; Status DC Mycophenolate Mofetil (Cellcept) 250 mg BID PO Last administered on 01/24/18at 12:01; Start 01/24/18 at 12:00; Stop 01/24/18 at 15:58; Status DC Pantoprazole Sodium (Protonix) 40 mg DAILYAC PO ; Start 01/24/18 at 11:30; Stop 01/24/18 at 12:01; Status DC Tacrolimus (Prograf) 2 mg BID PO Last administered on 01/24/18at 12:02; Start 01/24/18 at 12:00; Stop 01/24/18 at 13:07; Status DC Insulin Glargine (Lantus) 4 units BID SQ Last administered on 01/29/18at 09:27 ; Start 01/24/18 at 11:30; Stop 01/29/18 at 11:29; Status DC Pantoprazole Sodium (PROTONIX VIAL for IV PUSH) 40 mg DAILYAC IVP Last administered on 01/25/18at 09:34; Start 01/24/18 at 13:00; Stop 01/25/18 at 15 :35; Status DC Tacrolimus (Prograf) 4 mg DAILY PO ; Start 01/25/18 at 09:00; Stop 01/25/18 at 09:00; Status DC Tacrolimus (Prograf) 3 mg QHS PO ; Start 01/24/18 at 21:00; Stop 01/24/18 at 21:00; Status DC Tacrolimus (Prograf) 2 mg DAILY SL Last administered on 01/27/18at 07:59; Start 01/25/18 at 09:00; Stop 01/27/18 at 17:15; Status DC Tacrolimus (Prograf) 1 mg QHS SL Last administered on 01/26/18at 21:33; Start 01/24/18 at 21:00; Stop 01/27/18 at 17:13; Status DC Sodium Chloride (Saline Mist Nasal) 1 bryan PRN Q1HR PRN NS NASAL CONGESTION; Start 01/24/18 at 15:00; Stop 01/24/18 at 17:28; Status DC Gabapentin (Neurontin) 100 mg TID PO Last administered on 01/29/18at 09:09; Start 01/24/18 at 16:00 Mycophenolate Mofetil 250 mg/ Dextrose 42 ml @ 21 mls/hr Q12H IV Last administered on 01/27/18at 09:33; Start 01/24/18 at 21:00; Stop 01/27/18 at 14 :11; Status DC Tacrolimus (Prograf) 0.5 mg QHS SL Last administered on 01/26/18at 21:33; Start 01/24/18 at 21:00; Stop 01/27/18 at 17:13; Status DC Sodium Chloride (Saline Mist Nasal) 1 bryan PRN Q1HR PRN NS NASAL CONGESTION; Start 01/24/18 at 17:30 Sodium Chloride 1,000 ml @ 75 mls/hr [id number] IV ; Start 01/25/18 at 07:30; Stop 01/27/18 at 15:58; Status DC Fentanyl Citrate (Fentanyl 2ml Vial) 50 mcg PRN Q3HRS PRN IV SEVERE PAIN Last administered on 01/26/18at 22:05; Start 01/25/18 at 09:15 Sodium Chloride 1,000 ml @ 75 mls/hr [id number] IV Last administered on at 09:35; Start 01/25/18 at 09:15; Stop 01/27/18 at 15:58; Status DC Metoprolol Tartrate (Lopressor Vial) 7.5 mg Q6HRS IVP ; Start 01/25/18 at 18:00 ; Stop 01/25/18 at 18:00; Status DC Clonidine HCl (Catapres Tts-3) 1 patch WEEKLY TD Last administered on at 14:02; Start 01/25/18 at 13:00 Labetalol HCl (Normodyne Iv Push) 20 mg PRN Q4HRS PRN IVP HYPERTENSION, SEE COMMENTS Last administered on 01/25/18at 14:05; Start 01/25/18 at 13:00 Ringer's Solution 1,000 ml @ 30 mls/hr Q24H IV ; Start 01/25/18 at 15:15; Status Cancel Propofol 20 ml @ As Directed STK-MED ONCE IV ; Start 01/25/18 at 15:07; Stop 01/25/18 at 15:08; Status DC Lidocaine HCl (Xylocaine-Mpf 1% 2ml Vial) 2 ml STK-MED ONCE .ROUTE ; Start at 15:07; Stop 01/25/18 at 15:08; Status DC Sodium Chloride 1,000 ml @ 0 mls/hr Q0M IV Last administered on 01/25/18at 15: 13; Start 01/25/18 at 15:15; Stop 01/25/18 at 15:43; Status DC Metoclopramide HCl (Reglan Vial) 5 mg Q6HRS IV Last administered on 01/28/18at 06:02; Start 01/25/18 at 18:00; Stop 01/28/18 at 09:59; Status DC Pantoprazole Sodium (PROTONIX VIAL for IV PUSH) 40 mg BIDAC IVP Last administered on 01/28/18at 08:59; Start 01/25/18 at 16:30; Stop 01/28/18 at 09 :59; Status DC Levofloxacin/ Dextrose 100 ml @ 100 mls/hr Q24H IV ; Start 01/26/18 at 08:30; Stop 01/26/18 at 09:32; Status DC Levalbuterol HCl (Xopenex) 1.25 mg PRN Q6HRS PRN NEB SHORTNESS OF BREATH Last administered on 01/27/18at 12:19; Start 01/26/18 at 08:45 Piperacillin Sod/ Tazobactam Sod (Zosyn Per Pharmacy) 1 each PRN DAILY PRN MC SEE COMMENTS; Start 01/26/18 at 10:00; Stop 01/28/18 at 10:56; Status DC Furosemide (Lasix) 40 mg DAILY IVP Last administered on 01/28/18at 08:59; Start 01/26/18 at 10:30 Piperacillin Sod/ Tazobactam Sod 3.375 gm/Sodium Chloride 50 ml @ 100 mls/hr Q6HRS IV Last administered on 01/28/18at 06:03; Start 01/26/18 at 11:00; Stop 01/28/18 at 10:46; Status DC Linezolid/Dextrose 300 ml @ 300 mls/hr Q12HR IV Last administered on at 09:10; Start 01/27/18 at 10:00 Mycophenolate Mofetil (Cellcept) 250 mg BID PO Last administered on 01/29/18at 09:08; Start 01/27/18 at 21:00 Tacrolimus (Prograf) 3 mg QHS PO Last administered on 01/28/18at 21:16; Start 01/27/18 at 21:00 Tacrolimus (Prograf) 4 mg DAILY PO Last administered on 01/29/18at 09:08; Start 01/28/18 at 09:00 Doxycycline Hyclate (Vibra-Tab) 100 mg BID PO Last administered on 01/28/18at 09:06; Start 01/28/18 at 09:00; Stop 01/28/18 at 10:52; Status DC Metoclopramide HCl (Reglan Vial) 5 mg QIDACHS IV ; Start 01/28/18 at 11:30; Stop 01/28/18 at 11:30; Status DC Pantoprazole Sodium (Protonix) 40 mg BIDAC PO Last administered on 01/29/18at 09:09; Start 01/28/18 at 10:30 Metoclopramide HCl (Reglan Oral Solution) 5 mg QIDACHS PO Last administered on 01/29/18at 09:08; Start 01/28/18 at 11:30 Cefepime HCl 1 gm/ Dextrose 50 ml @ 100 mls/hr DAILY IV ; Start 01/29/18 at 09 :00; Status UNV Cefepime HCl (Maxipime) 1 gm DAILY IVP Last administered on 01/29/18at 09:10; Start 01/28/18 at 12:00 Insulin Human Lispro (HumaLOG) 20 units 1X ONCE SQ Last administered on at 04:39; Start 01/29/18 at 05:00; Stop 01/29/18 at 05:01; Status DC Insulin Glargine (Lantus) 20 units TID SQ ; Start 01/29/18 at 14:00; Stop at 14:00; Status DC Insulin Human Lispro (HumaLOG) 10 units TIDAC SQ ; Start 01/29/18 at 11:30 Insulin Glargine (Lantus) 20 units QHS SQ ; Start 01/29/18 at 21:00 Active Scripts Active Oxycodone-Acetaminophen 5-325 (Oxycodone Hcl/Acetaminophen) 1 Each Tablet 1 Tab PO PRN Q4HRS PRN Reported Prograf (Tacrolimus) 1 Mg Capsule 3 Cap PO QHS Prograf (Tacrolimus) 1 Mg Capsule 4 Cap PO DAILY Lantus Solostar (Insulin Glargine,Hum.rec.anlog) 100 Unit/1 Ml Insuln.pen 4 Unit SQ DAILYWBKFT Lantus Solostar (Insulin Glargine,Hum.rec.anlog) 100 Unit/1 Ml Insuln.pen 4 Unit SQ QHS Amlodipine Besylate 5 Mg Tablet 5 Mg PO DAILY Clonidine Hcl 0.2 Mg Tablet 1 Tab PO BID Clopidogrel (Clopidogrel Bisulfate) 75 Mg Tablet 1 Tab PO DAILY Cellcept (Mycophenolate Mofetil) 250 Mg Capsule 1 Cap PO BID Pantoprazole Sodium 20 Mg Tablet.dr 20 Mg PO DAILY Hydrochlorothiazide Capsule (Hydrochlorothiazide) 12.5 Mg Capsule 10 Mg PO BID Carvedilol 25 Mg Tablet 2 Tab PO DAILYBFRSUP Vitals/I & O Vital Sign - Last 24 Hours 01/28/18 01/28/18 01/28/18 01/28/18 14:52 17:19 19:10 20:00 Temp 99.0 98.0 99.0 98.0 Pulse 86 95 88 Resp 20 20 B/P (MAP) 141/61 (87) 131/60 (83) Pulse Ox 100 99 O2 Delivery BiPAP/CPAP Nasal Cannula Nasal Cannula O2 Flow Rate 4.0 4.0 01/28/18 01/28/18 01/28/18 01/28/18 20:50 22:00 23:35 23:55 Temp 98.1 98.1 Pulse 88 84 Resp 20 B/P (MAP) 131/60 153/54 (87) Pulse Ox 100 100 100 O2 Delivery BiPAP/CPAP BiPAP/CPAP BiPAP/CPAP 01/29/18 01/29/18 01/29/18 01/29/18 01:55 03:40 03:55 07:00 Temp 97.9 97.9 97.9 97.9 Pulse 85 85 Resp 18 23 B/P (MAP) 161/65 (97) 166/61 (96) Pulse Ox 100 100 100 100 O2 Delivery BiPAP/CPAP BiPAP/CPAP BiPAP/CPAP BiPAP/CPAP 01/29/18 01/29/18 01/29/18 01/29/18 07:37 09:09 09:09 09:10 Pulse 92 91 91 B/P (MAP) 166/61 166/61 166/61 O2 Delivery Nasal Cannula O2 Flow Rate 4.0 Intake and Output 01/28/18 01/28/18 01/29/18 15:00 23:00 07:00 Intake Total 0 ml 900 ml 1660 ml Output Total 350 ml 250 ml Balance 0 ml 550 ml 1410 ml NYASIA SHEPPARD III DO Jan 29, 2018 11:35
--- NOTE | 2018-01-29 12:16 | PDOC ---
SUBJECTIVE ROS Clinically looking better, states feeling better. 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 Nguyen at [facility] in past but was Hospitalized Nausea/Vomiting- improved S/P EGD with esophagitis with possible gastroparesis. Per GI Ac Resp failure - this am Pulm on board- Recd IV Lasix, On venti mask CxR not reported as Congestion but ?Pneumonia+ DM II HTN- Better Cardiology managing Discussed with Pt about worsening renal function and possible transfer if accepted and RN at bedside Pt is agreeable either way and verbalized understanding about his declining renal function Ct scan abdomen 01/24 without Contrast 1. Severely atrophic and scarred bilateral kidneys. 2. Atrophic and scarred renal transplant in the right iliac fossa. 3. Mild perinephric edema related to a left iliac fossa renal transplant. 4. Borderline prostatic enlargement with distention of the urinary bladder. 5. Gastric distention with fluid. 6. Left basilar pulmonary infiltrates suggesting pneumonia Renal US - 01/27- No Hydronephrosis . COMMENT/RELEVANT DATA Meds Current Medications Medications (Trade) Dose Ordered Sig/Penelope Start Time Stop Time Status Last Admin Dose Admin Acetaminophen (Tylenol) 650 mg PRN Q6HRS PRN 01/24/18 03:15 01/27/18 18:54 650 MG Amlodipine Besylate (Norvasc) 5 mg DAILY 01/24/18 11:30 01/29/18 09:10 5 MG Carvedilol (Coreg) 25 mg BIDWMEALS 01/24/18 17:00 01/29/18 09:09 25 MG Cefepime HCl (Maxipime) 1 gm DAILY 01/28/18 12:00 01/29/18 09:10 1 GM Cefepime HCl 1 gm/ Dextrose 50 ml @ 100 mls/hr DAILY 01/29/18 09:00 UNV Clonidine HCl (Catapres Tts-3) 1 patch WEEKLY 01/25/18 13:00 01/25/18 14:02 1 PATCH Clonidine HCl (Catapres) 0.2 mg BID 01/24/18 11:30 01/29/18 09:09 0.2 MG Clopidogrel Bisulfate (Plavix) 75 mg DAILY 01/24/18 11:30 01/29/18 09:10 75 MG Dextrose (Dextrose 50%-Water Syringe) 12.5 gm PRN Q15MIN PRN 01/23/18 23:00 Diphenhydramine HCl (Benadryl) 25 mg 1X ONCE 01/23/18 19:15 01/23/18 19:17 DC 01/23/18 19:25 25 MG Docusate Sodium (Colace) 100 mg PRN DAILY PRN 01/29/18 11:45 Doxycycline Hyclate (Vibra-Tab) 100 mg BID 01/28/18 09:00 01/28/18 10:52 DC 01/28/18 09:06 100 MG Fentanyl Citrate (Fentanyl 2ml Vial) 50 mcg PRN Q3HRS PRN 01/25/18 09:15 01/26/18 22:05 50 MCG Furosemide (Lasix) 40 mg DAILY 01/26/18 10:30 01/28/18 08:59 40 MG Gabapentin (Neurontin) 100 mg TID 01/24/18 16:00 01/29/18 09:09 100 MG Insulin Glargine (Lantus) 20 units QHS 01/29/18 21:00 Insulin Human Lispro (HumaLOG) 10 units TIDAC 01/29/18 11:30 Insulin Human Regular (HumuLIN R VIAL) 5 unit 1X ONCE 01/23/18 19:45 01/23/18 19:46 DC 01/23/18 19:55 5 UNIT Labetalol HCl (Normodyne Iv Push) 20 mg PRN Q4HRS PRN 01/25/18 13:00 01/25/18 14:05 20 MG Levalbuterol HCl (Xopenex) 1.25 mg PRN Q6HRS PRN 01/26/18 08:45 01/27/18 12:19 1.25 MG Levofloxacin/ Dextrose 100 ml @ 100 mls/hr Q24H 01/26/18 08:30 01/26/18 09:32 DC Lidocaine HCl (Xylocaine-Mpf 1% 2ml Vial) 2 ml STK-MED ONCE 01/25/18 15:07 01/25/18 15:08 DC Linezolid/Dextrose 300 ml @ 300 mls/hr Q12HR 01/27/18 10:00 01/29/18 09:10 300 MLS/HR Magnesium Sulfate/ Dextrose 100 ml @ 100 mls/hr 1X ONCE 01/24/18 09:15 01/24/18 10:14 DC 01/24/18 12:01 100 MLS/HR Metoclopramide HCl (Reglan Oral Solution) 5 mg QIDACHS 01/28/18 11:30 01/29/18 09:08 5 MG Metoclopramide HCl (Reglan Vial) 5 mg QIDACHS 01/28/18 11:30 01/28/18 11:30 DC Metoprolol Tartrate (Lopressor Vial) 7.5 mg Q6HRS 01/25/18 18:00 01/25/18 18:00 DC Morphine Sulfate (Morphine Sulfate) 2 mg PRN Q2HR PRN 01/24/18 11:00 Mycophenolate Mofetil (Cellcept) 250 mg BID 01/27/18 21:00 01/29/18 09:08 250 MG Mycophenolate Mofetil 250 mg/ Dextrose 42 ml @ 21 mls/hr Q12H 01/24/18 21:00 01/27/18 14:11 DC 01/27/18 09:33 21 MLS/HR Nicardipine HCl 50 mg/Sodium Chloride 270 ml @ 32.4 mls/hr CONT PRN 01/24/18 03:00 01/27/18 05:03 27 MLS/HR Non-Formulary Medication (Hydrochlorothiazide (Hydrochlorothiazide Capsule )) 10 mg BID 01/24/18 21:00 01/24/18 21:00 DC Ondansetron HCl (Zofran) 4 mg PRN Q6HRS PRN 01/24/18 03:15 01/26/18 22:04 4 MG Oxycodone/ Acetaminophen (Percocet 5/325) 1 tab PRN Q4HRS PRN 01/24/18 01:00 Pantoprazole Sodium (PROTONIX VIAL for IV PUSH) 40 mg BIDAC 01/25/18 16:30 01/28/18 09:59 DC 01/28/18 08:59 40 MG Pantoprazole Sodium (Protonix) 40 mg BIDAC 01/28/18 10:30 01/29/18 09:09 40 MG Piperacillin Sod/ Tazobactam Sod (Zosyn Per Pharmacy) 1 each PRN DAILY PRN 01/26/18 10:00 01/28/18 10:56 DC Piperacillin Sod/ Tazobactam Sod 3.375 gm/Sodium Chloride 50 ml @ 100 mls/hr Q6HRS 01/26/18 11:00 01/28/18 10:46 DC 01/28/18 06:03 100 MLS/HR Polyethylene Glycol (miraLAX PACKET) 17 gm PRN DAILY PRN 01/29/18 11:45 Prochlorperazine Edisylate (Compazine) 10 mg PRN Q6HRS PRN 01/24/18 03:15 01/27/18 06:31 10 MG Propofol 20 ml @ As Directed STK-MED ONCE 01/25/18 15:07 01/25/18 15:08 DC Ringer's Solution 1,000 ml @ 30 mls/hr Q24H 01/25/18 15:15 Cancel Sodium Chloride 1,000 ml @ 0 mls/hr Q0M 01/25/18 15:15 01/25/18 15:43 DC 01/25/18 15:13 50 MLS/HR Sodium Chloride (Saline Mist Nasal) 1 bryan PRN Q1HR PRN 01/24/18 17:30 Tacrolimus (Prograf) 4 mg DAILY 01/28/18 09:00 01/29/18 09:08 4 MG Trimethobenzamide HCl (Tigan Im) 200 mg PRN Q6HRS PRN 01/24/18 11:00 Lab Laboratory Tests Test 01/28/18 16:41 01/28/18 20:32 01/29/18 03:39 01/29/18 05:00 Glucose (Fingerstick) 281 mg/dL (70-99) 295 mg/dL (70-99) 413 mg/dL (70-99) White Blood Count 7.6 x10^3/uL (4.0-11.0) Red Blood Count 2.38 x10^6/uL (4.30-5.70) Hemoglobin 7.4 g/dL (13.0-17.5) Hematocrit 21.0 % (39.0-53.0) Mean Corpuscular Volume 88 fL (79-100) Mean Corpuscular Hemoglobin 31 pg (25-35) Mean Corpuscular Hemoglobin Concent 35 g/dL (31-37) Red Cell Distribution Width 13.4 % (11.5-14.5) Platelet Count 269 x10^3/uL (140-400) Neutrophils (%) (Auto) 79 % (31-73) Lymphocytes (%) (Auto) 12 % (24-48) Monocytes (%) (Auto) 7 % (0-9) Eosinophils (%) (Auto) 1 % (0-3) Basophils (%) (Auto) 0 % (0-3) Neutrophils # (Auto) 6.0 x10^3uL (1.8-7.7) Lymphocytes # (Auto) 0.9 x10^3/uL (1.0-4.8) Monocytes # (Auto) 0.6 x10^3/uL (0.0-1.1) Eosinophils # (Auto) 0.1 x10^3/uL (0.0-0.7) Basophils # (Auto) 0.0 x10^3/uL (0.0-0.2) Sodium Level 135 mmol/L (136-145) Potassium Level 3.4 mmol/L (3.5-5.1) Chloride Level 102 mmol/L (98-107) Carbon Dioxide Level 22 mmol/L (21-32) Anion Gap 11 (6-14) Blood Urea Nitrogen 43 mg/dL (8-26) Creatinine 4.4 mg/dL (0.7-1.3) Estimated GFR (Cockcroft-Gault) 14.3 Glucose Level 394 mg/dL (70-99) Calcium Level 8.5 mg/dL (8.5-10.1) Test 01/29/18 06:06 01/29/18 07:58 01/29/18 11:42 Glucose (Fingerstick) 311 mg/dL (70-99) 248 mg/dL (70-99) 188 mg/dL (70-99) Results All relevant outside records, renal labs, imaging studies, telemetry/EKG's were reviewed. BASSEM BUSBY MD Jan 29, 2018 12:15
[2018-01-29] MEDS: POLYETHYLENE GLYCOL 3350 17 GM PACKET. PO PRN (12:19)
[2018-01-29] MEDS: DOCUSATE SODIUM 100 MG CAPSULE. PO PRN (12:19)
--- NOTE | 2018-01-29 12:21 | PDOC ---
G I PROGRESS NOTE Subjective No GI complaints. No N, V. Eating well. Physical Exam Lungs clear. RRR Abdomen soft, not tender nor distended. Review of Relevant I have reviewed the following items nadiya (where applicable) has been applied. Labs Laboratory Tests Test 01/27/18 15:47 01/27/18 20:59 01/28/18 02:50 01/28/18 07:06 Glucose (Fingerstick) 263 mg/dL (70-99) 209 mg/dL (70-99) 233 mg/dL (70-99) White Blood Count 10.2 x10^3/uL (4.0-11.0) Red Blood Count 2.23 x10^6/uL (4.30-5.70) Hemoglobin 7.1 g/dL (13.0-17.5) Hematocrit 19.6 % (39.0-53.0) Mean Corpuscular Volume 88 fL (79-100) Mean Corpuscular Hemoglobin 32 pg (25-35) Mean Corpuscular Hemoglobin Concent 36 g/dL (31-37) Red Cell Distribution Width 13.4 % (11.5-14.5) Platelet Count 216 x10^3/uL (140-400) Neutrophils (%) (Auto) 72 % (31-73) Lymphocytes (%) (Auto) 15 % (24-48) Monocytes (%) (Auto) 12 % (0-9) Eosinophils (%) (Auto) 0 % (0-3) Basophils (%) (Auto) 1 % (0-3) Neutrophils # (Auto) 7.4 x10^3uL (1.8-7.7) Lymphocytes # (Auto) 1.5 x10^3/uL (1.0-4.8) Monocytes # (Auto) 1.2 x10^3/uL (0.0-1.1) Eosinophils # (Auto) 0.0 x10^3/uL (0.0-0.7) Basophils # (Auto) 0.0 x10^3/uL (0.0-0.2) Reticulocyte Count (auto) 1.7 % (0.5-2.5) Sodium Level 137 mmol/L (136-145) Potassium Level 3.7 mmol/L (3.5-5.1) Chloride Level 104 mmol/L (98-107) Carbon Dioxide Level 23 mmol/L (21-32) Anion Gap 10 (6-14) Blood Urea Nitrogen 37 mg/dL (8-26) Creatinine 3.7 mg/dL (0.7-1.3) Estimated GFR (Cockcroft-Gault) 17.5 Glucose Level 226 mg/dL (70-99) Calcium Level 8.7 mg/dL (8.5-10.1) Iron Level 12 ug/dL (65-175) Total Iron Binding Capacity 136 ug/dL (250-450) Iron Saturation 9 % (15-34) Ferritin 418 ng/mL (26-388) Test 01/28/18 11:33 01/28/18 16:41 01/28/18 20:32 01/29/18 03:39 Glucose (Fingerstick) 266 mg/dL (70-99) 281 mg/dL (70-99) 295 mg/dL (70-99) 413 mg/dL (70-99) Test 01/29/18 05:00 01/29/18 06:06 01/29/18 07:58 01/29/18 11:42 White Blood Count 7.6 x10^3/uL (4.0-11.0) Red Blood Count 2.38 x10^6/uL (4.30-5.70) Hemoglobin 7.4 g/dL (13.0-17.5) Hematocrit 21.0 % (39.0-53.0) Mean Corpuscular Volume 88 fL (79-100) Mean Corpuscular Hemoglobin 31 pg (25-35) Mean Corpuscular Hemoglobin Concent 35 g/dL (31-37) Red Cell Distribution Width 13.4 % (11.5-14.5) Platelet Count 269 x10^3/uL (140-400) Neutrophils (%) (Auto) 79 % (31-73) Lymphocytes (%) (Auto) 12 % (24-48) Monocytes (%) (Auto) 7 % (0-9) Eosinophils (%) (Auto) 1 % (0-3) Basophils (%) (Auto) 0 % (0-3) Neutrophils # (Auto) 6.0 x10^3uL (1.8-7.7) Lymphocytes # (Auto) 0.9 x10^3/uL (1.0-4.8) Monocytes # (Auto) 0.6 x10^3/uL (0.0-1.1) Eosinophils # (Auto) 0.1 x10^3/uL (0.0-0.7) Basophils # (Auto) 0.0 x10^3/uL (0.0-0.2) Sodium Level 135 mmol/L (136-145) Potassium Level 3.4 mmol/L (3.5-5.1) Chloride Level 102 mmol/L (98-107) Carbon Dioxide Level 22 mmol/L (21-32) Anion Gap 11 (6-14) Blood Urea Nitrogen 43 mg/dL (8-26) Creatinine 4.4 mg/dL (0.7-1.3) Estimated GFR (Cockcroft-Gault) 14.3 Glucose Level 394 mg/dL (70-99) Calcium Level 8.5 mg/dL (8.5-10.1) Glucose (Fingerstick) 311 mg/dL (70-99) 248 mg/dL (70-99) 188 mg/dL (70-99) Laboratory Tests Test 01/28/18 16:41 01/28/18 20:32 01/29/18 03:39 01/29/18 05:00 Glucose (Fingerstick) 281 mg/dL (70-99) 295 mg/dL (70-99) 413 mg/dL (70-99) White Blood Count 7.6 x10^3/uL (4.0-11.0) Red Blood Count 2.38 x10^6/uL (4.30-5.70) Hemoglobin 7.4 g/dL (13.0-17.5) Hematocrit 21.0 % (39.0-53.0) Mean Corpuscular Volume 88 fL (79-100) Mean Corpuscular Hemoglobin 31 pg (25-35) Mean Corpuscular Hemoglobin Concent 35 g/dL (31-37) Red Cell Distribution Width 13.4 % (11.5-14.5) Platelet Count 269 x10^3/uL (140-400) Neutrophils (%) (Auto) 79 % (31-73) Lymphocytes (%) (Auto) 12 % (24-48) Monocytes (%) (Auto) 7 % (0-9) Eosinophils (%) (Auto) 1 % (0-3) Basophils (%) (Auto) 0 % (0-3) Neutrophils # (Auto) 6.0 x10^3uL (1.8-7.7) Lymphocytes # (Auto) 0.9 x10^3/uL (1.0-4.8) Monocytes # (Auto) 0.6 x10^3/uL (0.0-1.1) Eosinophils # (Auto) 0.1 x10^3/uL (0.0-0.7) Basophils # (Auto) 0.0 x10^3/uL (0.0-0.2) Sodium Level 135 mmol/L (136-145) Potassium Level 3.4 mmol/L (3.5-5.1) Chloride Level 102 mmol/L (98-107) Carbon Dioxide Level 22 mmol/L (21-32) Anion Gap 11 (6-14) Blood Urea Nitrogen 43 mg/dL (8-26) Creatinine 4.4 mg/dL (0.7-1.3) Estimated GFR (Cockcroft-Gault) 14.3 Glucose Level 394 mg/dL (70-99) Calcium Level 8.5 mg/dL (8.5-10.1) Test 01/29/18 06:06 01/29/18 07:58 01/29/18 11:42 Glucose (Fingerstick) 311 mg/dL (70-99) 248 mg/dL (70-99) 188 mg/dL (70-99) Microbiology 01/26/18 Blood Culture - Preliminary, Resulted NO GROWTH AFTER 2 DAYS 01/28/18 - Final, Resulted 01/28/18 - Final, Resulted 01/28/18 - Final, Resulted 01/28/18 - Final, Resulted 01/28/18 - Final, Resulted 01/28/18 Gram Stain Evaluation - Final, Resulted 01/28/18 Sputum Culture, Resulted Pending Vitals/I & O Vital Sign - Last 24 Hours 01/28/18 01/28/18 01/28/18 01/28/18 14:52 17:19 19:10 20:00 Temp 99.0 98.0 99.0 98.0 Pulse 86 95 88 Resp 20 20 B/P (MAP) 141/61 (87) 131/60 (83) Pulse Ox 100 99 O2 Delivery BiPAP/CPAP Nasal Cannula Nasal Cannula O2 Flow Rate 4.0 4.0 01/28/18 01/28/18 01/28/18 01/28/18 20:50 22:00 23:35 23:55 Temp 98.1 98.1 Pulse 88 84 Resp 20 B/P (MAP) 131/60 153/54 (87) Pulse Ox 100 100 100 O2 Delivery BiPAP/CPAP BiPAP/CPAP BiPAP/CPAP 01/29/18 01/29/18 01/29/18 01/29/18 01:55 03:40 03:55 07:00 Temp 97.9 97.9 97.9 97.9 Pulse 85 85 Resp 18 23 B/P (MAP) 161/65 (97) 166/61 (96) Pulse Ox 100 100 100 100 O2 Delivery BiPAP/CPAP BiPAP/CPAP BiPAP/CPAP BiPAP/CPAP 01/29/18 01/29/18 01/29/18 01/29/18 07:37 09:09 09:09 09:10 Pulse 92 91 91 B/P (MAP) 166/61 166/61 166/61 O2 Delivery Nasal Cannula O2 Flow Rate 4.0 01/29/18 11:00 Temp 99.0 99.0 Pulse 85 Resp 20 B/P (MAP) 156/72 (100) Pulse Ox 100 O2 Delivery Nasal Cannula O2 Flow Rate 3.0 Intake and Output 01/28/18 01/28/18 01/29/18 15:00 23:00 07:00 Intake Total 0 ml 900 ml 1660 ml Output Total 350 ml 250 ml Balance 0 ml 550 ml 1410 ml Problem List Problems Medical Problems: (1) Hypertensive urgency Status: Acute (2) Intractable nausea and vomiting Status: Acute (3) Migraine headache Status: Acute Assessment Gastroparesis, stable on po prokinetic, PPI. Anemia--no overt bleeding. Recent enough historically normal colonoscopy and EGD to say not lesion which would modify treatment. Suspect part and parcel of renal disease, other issues. Plan of Care Note Continue PPI and metoclopramide. VIRGINIA FERNANDEZ MD Jan 29, 2018 12:21
[2018-01-29] MEDS ORDERED: INSULIN GLARGINE 300 UNITS/3 ML INSULN.PEN. SQ SCH (14:00)
[2018-01-29 15:00] VITALS: BP 153/67
--- NOTE | 2018-01-29 16:08 | PATHOLOGY ---
[facility] Accession Number: [id number] . 01 Material submitted: . EMESIS . 01 Clinical history: . N/V . 02 Diagnosis: Tissue designated "emesis": - Foreign body (cottonball). . (JPM:mml; 01/29/18) [facility]/01/29/2018 . 02 Electronically signed: . Chucky Mauro MD, Pathologist NPI- [id number] . 01 Gross description: . The specimen is received in formalin, labeled "Carl Ray," and additionally labeled on the requisition as, "emesis". Received is an apparent cottonball foreign body measuring 4.0 x 3.5 x 0.5 cm in greatest dimensions. A portion of the specimen is submitted in cassette A1. A gross photograph is taken. ([facility]; 01/28/2018) QA/QAC . 02 Pathologist provided ICD-10: Z18.89 . 02 CPT . 150048 Specimen Comment: A courtesy copy of this report has been sent to Specimen Comment: [phone], , . Specimen Comment: Report sent to ,DR BOLDEN / DR ESPAÑA Specimen Comment: A duplicate report has been generated due to demographic updates. Performed at: 01 [facility] [address], [place] [id number] MD Benji Kelly MD Phone: [phone] Performed at: 02 [facility] [address], [place] [id number] MD Chucky Mauro MD Phone: [phone]
--- NOTE | 2018-01-29 16:14 | RAD ---
Single view of the chest. 01/29/2018 1:20 PM Indication: pneumonia vs CHF Comparison: Chest radiograph January 19, 2018 Findings: No pneumothorax is seen. There is a probable small left pleural effusion with underlying atelectasis or infiltrate. Hazy opacity in the right lung base may represent layering effusion or infiltrate. Heart size is normal. Bony thorax is grossly intact. IMPRESSION: 1. Small left pleural effusion with underlying atelectasis or infiltrate 2. Mild layering effusion versus infiltrate in the right lung base Electronically signed by: Hemant Sparks MD (01/29/2018 4:11 PM) [id number]
[2018-01-29] MEDS: DEXTROSE 50% 25 GM / 50ML DISP.SYRIN. IV PRN (16:45)
[2018-01-29 19:56] VITALS: BP 150/69
[2018-01-29 23:00] VITALS: BP 159/58
[2018-01-30 03:51] VITALS: BP 169/67
[2018-01-30 07:00] VITALS: BP 186/60
[2018-01-30] MEDS: PANTOPRAZOLE 40 MG TABLET.DR. PO SCH ×2 (08:15→16:28)
[2018-01-30] MEDS: CLOPIDOGREL BISULFATE 75 MG TABLET PO SCH (08:15)
[2018-01-30] MEDS: MYCOPHENOLATE MOFETIL 250 MG CAPSULE. PO SCH ×2 (08:15→20:00)
[2018-01-30] MEDS: cloNIDine HCL 0.2 MG TABLET PO SCH ×2 (08:16→20:00)
[2018-01-30] MEDS: amLODIPine BESYLATE 5 MG TABLET PO SCH (08:16)
[2018-01-30] MEDS: GABAPENTIN 100 MG CAPSULE. PO SCH ×3 (08:16→20:01)
[2018-01-30] MEDS: DOCUSATE SODIUM 100 MG CAPSULE. PO PRN (08:16)
[2018-01-30] MEDS: CEFEPIME HCL IV Push 1 GM VIAL. IVP SCH (08:17)
[2018-01-30] MEDS: CARVEDILOL 12.5 MG TABLET. PO SCH ×2 (08:17→17:04)
[2018-01-30] MEDS: METOCLOPRAMIDE ORAL SOLN 10 MG/10 ML SOLUTION. PO SCH ×4 (08:17→20:00)
[2018-01-30] MEDS: TACROLIMUS 1 MG CAPSULE PO SCH (08:18)
[2018-01-30] MEDS: POLYETHYLENE GLYCOL 3350 17 GM PACKET. PO PRN (08:20)
--- NOTE | 2018-01-30 08:30 | PDOC ---
Infectious Disease Note Subjective: Subjective pt says feels better no fevers has dry cough but improving still on 4 L o2 by NC no f/c/n/v/d/headache/sore throat has constipation ROS: ROS Negative except for above. Vital Signs: Vital Signs Vital Signs Date Time Temp Pulse Resp B/P (MAP) Pulse Ox O2 Delivery O2 Flow Rate FiO2 01/30/18 07:00 98.7 93 16 186/60 (102) 100 Nasal Cannula 4.0 98.7 Physical Exam: PHYSICAL EXAM GENERAL: The patient is laying in bed, axox3 HEENT: Left eye prosthesis. Oral cavity, pharynx pink, dry. No lesions seen. NECK: Supple. LUNGS: dec bs at bases, no wheezing HEART: S1 and S2. ABDOMEN: Bowel sounds active. Soft, nontender. gu connell in place with clear urine EXTREMITIES: [id number] amputation bilaterally. No cyanosis. SKIN: Warm, without rash. NEUROLOGIC: Alert and oriented x 3. Medications: Inpatient Meds: Current Medications Medications (Trade) Dose Ordered Sig/Penelope Start Time Stop Time Status Last Admin Dose Admin Acetaminophen (Tylenol) 650 mg PRN Q6HRS PRN 01/24/18 03:15 01/27/18 18:54 650 MG Amlodipine Besylate (Norvasc) 5 mg DAILY 01/24/18 11:30 01/29/18 09:10 5 MG Carvedilol (Coreg) 25 mg BIDWMEALS 01/24/18 17:00 01/29/18 17:14 25 MG Cefepime HCl (Maxipime) 1 gm DAILY 01/28/18 12:00 01/29/18 09:10 1 GM Cefepime HCl 1 gm/ Dextrose 50 ml @ 100 mls/hr DAILY 01/29/18 09:00 UNV Clonidine HCl (Catapres Tts-3) 1 patch WEEKLY 01/25/18 13:00 01/25/18 14:02 1 PATCH Clonidine HCl (Catapres) 0.2 mg BID 01/24/18 11:30 01/29/18 20:10 0.2 MG Clopidogrel Bisulfate (Plavix) 75 mg DAILY 01/24/18 11:30 01/29/18 09:10 75 MG Dextrose (Dextrose 50%-Water Syringe) 12.5 gm PRN Q15MIN PRN 01/23/18 23:00 10/30/18 16:45 12.5 GM Diphenhydramine HCl (Benadryl) 25 mg 1X ONCE 01/23/18 19:15 01/23/18 19:17 DC 01/23/18 19:25 25 MG Docusate Sodium (Colace) 100 mg PRN DAILY PRN 01/29/18 11:45 01/29/18 12:19 100 MG Doxycycline Hyclate (Vibra-Tab) 100 mg BID 01/28/18 09:00 01/28/18 10:52 DC 01/28/18 09:06 100 MG Fentanyl Citrate (Fentanyl 2ml Vial) 50 mcg PRN Q3HRS PRN 01/25/18 09:15 01/26/18 22:05 50 MCG Furosemide (Lasix) 40 mg DAILY 01/26/18 10:30 01/28/18 08:59 40 MG Gabapentin (Neurontin) 100 mg TID 01/24/18 16:00 01/29/18 20:10 100 MG Insulin Glargine (Lantus) 20 units QHS 01/29/18 21:00 01/29/18 21:54 5 UNITS Insulin Human Lispro (HumaLOG) 6 units TIDAC 01/30/18 07:30 Insulin Human Regular (HumuLIN R VIAL) 5 unit 1X ONCE 01/23/18 19:45 01/23/18 19:46 DC 01/23/18 19:55 5 UNIT Labetalol HCl (Normodyne Iv Push) 20 mg PRN Q4HRS PRN 01/25/18 13:00 01/25/18 14:05 20 MG Levalbuterol HCl (Xopenex) 1.25 mg PRN Q6HRS PRN 01/26/18 08:45 01/27/18 12:19 1.25 MG Levofloxacin/ Dextrose 100 ml @ 100 mls/hr Q24H 01/26/18 08:30 01/26/18 09:32 DC Lidocaine HCl (Xylocaine-Mpf 1% 2ml Vial) 2 ml STK-MED ONCE 01/25/18 15:07 01/25/18 15:08 DC Linezolid/Dextrose 300 ml @ 300 mls/hr Q12HR 01/27/18 10:00 01/29/18 20:11 300 MLS/HR Magnesium Sulfate/ Dextrose 100 ml @ 100 mls/hr 1X ONCE 01/24/18 09:15 01/24/18 10:14 DC 01/24/18 12:01 100 MLS/HR Metoclopramide HCl (Reglan Oral Solution) 5 mg QIDACHS 01/28/18 11:30 01/29/18 20:11 5 MG Metoclopramide HCl (Reglan Vial) 5 mg QIDACHS 01/28/18 11:30 01/28/18 11:30 DC Metoprolol Tartrate (Lopressor Vial) 7.5 mg Q6HRS 01/25/18 18:00 01/25/18 18:00 DC Morphine Sulfate (Morphine Sulfate) 2 mg PRN Q2HR PRN 01/24/18 11:00 Mycophenolate Mofetil (Cellcept) 250 mg BID 01/27/18 21:00 01/29/18 20:10 250 MG Mycophenolate Mofetil 250 mg/ Dextrose 42 ml @ 21 mls/hr Q12H 01/24/18 21:00 01/27/18 14:11 DC 01/27/18 09:33 21 MLS/HR Nicardipine HCl 50 mg/Sodium Chloride 270 ml @ 32.4 mls/hr CONT PRN 01/24/18 03:00 01/27/18 05:03 27 MLS/HR Non-Formulary Medication (Hydrochlorothiazide (Hydrochlorothiazide Capsule )) 10 mg BID 01/24/18 21:00 01/24/18 21:00 DC Ondansetron HCl (Zofran) 4 mg PRN Q6HRS PRN 01/24/18 03:15 01/26/18 22:04 4 MG Oxycodone/ Acetaminophen (Percocet 5/325) 1 tab PRN Q4HRS PRN 01/24/18 01:00 Pantoprazole Sodium (PROTONIX VIAL for IV PUSH) 40 mg BIDAC 01/25/18 16:30 01/28/18 09:59 DC 01/28/18 08:59 40 MG Pantoprazole Sodium (Protonix) 40 mg BIDAC 01/28/18 10:30 01/29/18 17:12 40 MG Piperacillin Sod/ Tazobactam Sod (Zosyn Per Pharmacy) 1 each PRN DAILY PRN 01/26/18 10:00 01/28/18 10:56 DC Piperacillin Sod/ Tazobactam Sod 3.375 gm/Sodium Chloride 50 ml @ 100 mls/hr Q6HRS 01/26/18 11:00 01/28/18 10:46 DC 01/28/18 06:03 100 MLS/HR Polyethylene Glycol (miraLAX PACKET) 17 gm PRN DAILY PRN 01/29/18 11:45 01/29/18 12:19 17 GM Prochlorperazine Edisylate (Compazine) 10 mg PRN Q6HRS PRN 01/24/18 03:15 01/27/18 06:31 10 MG Propofol 20 ml @ As Directed STK-MED ONCE 01/25/18 15:07 01/25/18 15:08 DC Ringer's Solution 1,000 ml @ 30 mls/hr Q24H 01/25/18 15:15 Cancel Sodium Chloride 1,000 ml @ 0 mls/hr Q0M 01/25/18 15:15 01/25/18 15:43 DC 01/25/18 15:13 50 MLS/HR Sodium Chloride (Saline Mist Nasal) 1 bryan PRN Q1HR PRN 01/24/18 17:30 Tacrolimus (Prograf) 4 mg DAILY 01/31/18 09:00 Trimethobenzamide HCl (Tigan Im) 200 mg PRN Q6HRS PRN 01/24/18 11:00 Labs: Lab Laboratory Tests Test 01/29/18 11:42 01/29/18 16:32 01/29/18 16:48 01/29/18 20:30 Glucose (Fingerstick) 188 mg/dL (70-99) 40 mg/dL (70-99) 110 mg/dL (70-99) 167 mg/dL (70-99) Test 01/30/18 01:07 Glucose (Fingerstick) 273 mg/dL (70-99) Micro CXR Impression: Retrocardiac left basilar consolidation spec. Vascular congestion and small left effusion. Sputum GNR,GPC, ? not good specimen BC neg so far UC neg so far Objective: Assessment: Fever etiology unclear,fever resolved cultures nonrevealing Acute respiratory failure. with Left lower lobe infiltrate- flu screen neg, mycoplasma neg, sputum poor quality,clinically improving Pyuria UC neg so far Acute on chronic heart failure. End-stage renal disease, status post renal transplant.worsening creat transfer to [facility] planned Immunocompromised. Accelerated hypertension. Type 2 diabetes. h/o Bilateral BKA Anemia nonhemolytic,multifactorial Plan: Plan [facility] creat is concerning,last reading was 4.4 (from 2.30) Renal team plans for transfer to outside facility with transplant team support on empiric cefepime( 01/28-) and zyvox ( 01/26-); will dc zyvox was on zosyn ( 01/26-01/28), Cults neg so far f/u crypto ag ,EBV and CMV serologies though suscipicion is low for these infections Supportive care D/W KATINA OLSEN MD Jan 30, 2018 08:30
[2018-01-30] MEDS: INSULIN LISPRO 300 UNITS/3 ML INSULN.PEN. SQ SCH ×6 (08:35→16:29)
[2018-01-30] MEDS: FUROSEMIDE 40 MG/4 ML VIAL. IVP SCH (09:00)
[2018-01-30 09:29] LABS: BASO % 0 % (0-3); EOS # 0.1 x10^3/uL (0.0-0.7); EOS % 2 % (0-3); HEMATOCRIT 22.4 % (39.0-53.0); HEMOGLOBIN 7.9 g/dL (13.0-17.5); LYMPH # 0.8 x10^3/uL (1.0-4.8); LYMPH % 13 % (24-48); MEAN CORPUSCULAR HEMOGLOBIN 31 pg (25-35); MEAN CORPUSCULAR HGB CONC 35 g/dL (31-37); MEAN CORPUSCULAR VOLUME 88 fL (79-100); MONO # 0.5 x10^3/uL (0.0-1.1); MONO % 8 % (0-9); NEUT # 4.5 x10^3uL (1.8-7.7); NEUT % 77 % (31-73); PLATELET COUNT 327 x10^3/uL (140-400); RED BLOOD COUNT 2.56 x10^6/uL (4.30-5.70); RED CELL DISTRIBUTION WIDTH 13.2 % (11.5-14.5); WHITE BLOOD COUNT 5.9 x10^3/uL (4.0-11.0)
[2018-01-30 09:47] LABS: CALCIUM 8.8 mg/dL (8.5-10.1); CREATININE 4.4 mg/dL (0.7-1.3); GFR 14.3; POTASSIUM 3.2 mmol/L (3.5-5.1)
--- NOTE | 2018-01-30 10:12 | PDOC ---
SUBJECTIVE ROS states feeling better. 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 Likely Plateaued , Monitor, No Uremic symptoms or signs currently no emergent indication for [employer] Renal US and Duplex - normal No Micr hematuria , UA cw UTI E-Lytes stable, ? UTI, ID following , On ABx Anemia- Hgb has been dropping , stable now Admission Hgb may be high due to hemonc Hem consulted Hx of Renal Tx 2007 - Continue Immunosuppression Prograf level 3.6 CKD STAGE 3 - Baseline Creat 1.5 Used to go to [facility], hasn't seen Renal as OP for many years as no insurance He was scheduled to see Dr. Nguyen at [facility] in past but was Hospitalized Nausea/Vomiting- improved S/P EGD with esophagitis with possible gastroparesis. Per GI Ac Resp failure Pulm on board- Recd IV Lasix, Acute respiratory failure. Abnormal cxr 01/27 with bilateral infiltrates, suspect pneumonia, suspect gram negative/ ? CHF DM II HTN- Better Cardiology managing Discussed with Pt , RN and Pulm Ct scan abdomen 01/24 without Contrast 1. Severely atrophic and scarred bilateral kidneys. 2. Atrophic and scarred renal transplant in the right iliac fossa. 3. Mild perinephric edema related to a left iliac fossa renal transplant. 4. Borderline prostatic enlargement with distention of the urinary bladder. 5. Gastric distention with fluid. 6. Left basilar pulmonary infiltrates suggesting pneumonia Renal US - 01/27- No Hydronephrosis . COMMENT/RELEVANT DATA Meds Current Medications Medications (Trade) Dose Ordered Sig/Penelope Start Time Stop Time Status Last Admin Dose Admin Acetaminophen (Tylenol) 650 mg PRN Q6HRS PRN 01/24/18 03:15 01/27/18 18:54 650 MG Amlodipine Besylate (Norvasc) 5 mg DAILY 01/24/18 11:30 01/30/18 08:16 5 MG Carvedilol (Coreg) 25 mg BIDWMEALS 01/24/18 17:00 01/30/18 08:17 25 MG Cefepime HCl (Maxipime) 1 gm DAILY 01/28/18 12:00 01/30/18 08:17 1 GM Cefepime HCl 1 gm/ Dextrose 50 ml @ 100 mls/hr DAILY 01/29/18 09:00 UNV Clonidine HCl (Catapres Tts-3) 1 patch WEEKLY 01/25/18 13:00 01/25/18 14:02 1 PATCH Clonidine HCl (Catapres) 0.2 mg BID 01/24/18 11:30 01/30/18 08:16 0.2 MG Clopidogrel Bisulfate (Plavix) 75 mg DAILY 01/24/18 11:30 01/30/18 08:15 75 MG Dextrose (Dextrose 50%-Water Syringe) 12.5 gm PRN Q15MIN PRN 01/23/18 23:00 01/29/18 16:45 12.5 GM Diphenhydramine HCl (Benadryl) 25 mg 1X ONCE 01/23/18 19:15 01/23/18 19:17 DC 01/23/18 19:25 25 MG Docusate Sodium (Colace) 100 mg PRN DAILY PRN 01/29/18 11:45 01/30/18 08:16 100 MG Doxycycline Hyclate (Vibra-Tab) 100 mg BID 01/28/18 09:00 01/28/18 10:52 DC 01/28/18 09:06 100 MG Fentanyl Citrate (Fentanyl 2ml Vial) 50 mcg PRN Q3HRS PRN 01/25/18 09:15 01/26/18 22:05 50 MCG Furosemide (Lasix) 40 mg DAILY 01/26/18 10:30 01/28/18 08:59 40 MG Gabapentin (Neurontin) 100 mg TID 01/24/18 16:00 01/30/18 08:16 100 MG Insulin Glargine (Lantus) 20 units QHS 01/29/18 21:00 01/29/18 21:54 5 UNITS Insulin Human Lispro (HumaLOG) 6 units TIDAC 01/30/18 07:30 01/30/18 08:35 6 UNITS Insulin Human Regular (HumuLIN R VIAL) 5 unit 1X ONCE 01/23/18 19:45 01/23/18 19:46 DC 01/23/18 19:55 5 UNIT Labetalol HCl (Normodyne Iv Push) 20 mg PRN Q4HRS PRN 01/25/18 13:00 01/25/18 14:05 20 MG Levalbuterol HCl (Xopenex) 1.25 mg PRN Q6HRS PRN 01/26/18 08:45 01/27/18 12:19 1.25 MG Levofloxacin/ Dextrose 100 ml @ 100 mls/hr Q24H 01/26/18 08:30 01/26/18 09:32 DC Lidocaine HCl (Xylocaine-Mpf 1% 2ml Vial) 2 ml STK-MED ONCE 01/25/18 15:07 01/25/18 15:08 DC Linezolid/Dextrose 300 ml @ 300 mls/hr Q12HR 01/27/18 10:00 01/30/18 08:30 DC 01/29/18 20:11 300 MLS/HR Magnesium Sulfate/ Dextrose 100 ml @ 100 mls/hr 1X ONCE 01/24/18 09:15 01/24/18 10:14 DC 01/24/18 12:01 100 MLS/HR Metoclopramide HCl (Reglan Oral Solution) 5 mg QIDACHS 01/28/18 11:30 01/30/18 08:17 5 MG Metoclopramide HCl (Reglan Vial) 5 mg QIDACHS 01/28/18 11:30 01/28/18 11:30 DC Metoprolol Tartrate (Lopressor Vial) 7.5 mg Q6HRS 01/25/18 18:00 01/25/18 18:00 DC Morphine Sulfate (Morphine Sulfate) 2 mg PRN Q2HR PRN 01/24/18 11:00 Mycophenolate Mofetil (Cellcept) 250 mg BID 01/27/18 21:00 01/30/18 08:15 250 MG Mycophenolate Mofetil 250 mg/ Dextrose 42 ml @ 21 mls/hr Q12H 01/24/18 21:00 01/27/18 14:11 DC 01/27/18 09:33 21 MLS/HR Nicardipine HCl 50 mg/Sodium Chloride 270 ml @ 32.4 mls/hr CONT PRN 01/24/18 03:00 01/27/18 05:03 27 MLS/HR Non-Formulary Medication (Hydrochlorothiazide (Hydrochlorothiazide Capsule )) 10 mg BID 01/24/18 21:00 01/24/18 21:00 DC Ondansetron HCl (Zofran) 4 mg PRN Q6HRS PRN 01/24/18 03:15 01/26/18 22:04 4 MG Oxycodone/ Acetaminophen (Percocet 5/325) 1 tab PRN Q4HRS PRN 01/24/18 01:00 Pantoprazole Sodium (PROTONIX VIAL for IV PUSH) 40 mg BIDAC 01/25/18 16:30 01/28/18 09:59 DC 01/28/18 08:59 40 MG Pantoprazole Sodium (Protonix) 40 mg BIDAC 01/28/18 10:30 01/30/18 08:15 40 MG Piperacillin Sod/ Tazobactam Sod (Zosyn Per Pharmacy) 1 each PRN DAILY PRN 01/26/18 10:00 01/28/18 10:56 DC Piperacillin Sod/ Tazobactam Sod 3.375 gm/Sodium Chloride 50 ml @ 100 mls/hr Q6HRS 01/26/18 11:00 01/28/18 10:46 DC 01/28/18 06:03 100 MLS/HR Polyethylene Glycol (miraLAX PACKET) 17 gm PRN DAILY PRN 01/29/18 11:45 01/30/18 08:20 17 GM Prochlorperazine Edisylate (Compazine) 10 mg PRN Q6HRS PRN 01/24/18 03:15 01/27/18 06:31 10 MG Propofol 20 ml @ As Directed STK-MED ONCE 01/25/18 15:07 01/25/18 15:08 DC Ringer's Solution 1,000 ml @ 30 mls/hr Q24H 01/25/18 15:15 Cancel Sodium Chloride 1,000 ml @ 0 mls/hr Q0M 01/25/18 15:15 01/25/18 15:43 DC 01/25/18 15:13 50 MLS/HR Sodium Chloride (Saline Mist Nasal) 1 bryan PRN Q1HR PRN 01/24/18 17:30 Tacrolimus (Prograf) 4 mg DAILY 01/31/18 09:00 Trimethobenzamide HCl (Tigan Im) 200 mg PRN Q6HRS PRN 01/24/18 11:00 Lab Laboratory Tests Test 01/29/18 11:42 01/29/18 16:32 01/29/18 16:48 01/29/18 20:30 Glucose (Fingerstick) 188 mg/dL (70-99) 40 mg/dL (70-99) 110 mg/dL (70-99) 167 mg/dL (70-99) Test 01/30/18 01:07 01/30/18 07:07 01/30/18 09:05 Glucose (Fingerstick) 273 mg/dL (70-99) 277 mg/dL (70-99) White Blood Count 5.9 x10^3/uL (4.0-11.0) Red Blood Count 2.56 x10^6/uL (4.30-5.70) Hemoglobin 7.9 g/dL (13.0-17.5) Hematocrit 22.4 % (39.0-53.0) Mean Corpuscular Volume 88 fL (79-100) Mean Corpuscular Hemoglobin 31 pg (25-35) Mean Corpuscular Hemoglobin Concent 35 g/dL (31-37) Red Cell Distribution Width 13.2 % (11.5-14.5) Platelet Count 327 x10^3/uL (140-400) Neutrophils (%) (Auto) 77 % (31-73) Lymphocytes (%) (Auto) 13 % (24-48) Monocytes (%) (Auto) 8 % (0-9) Eosinophils (%) (Auto) 2 % (0-3) Basophils (%) (Auto) 0 % (0-3) Neutrophils # (Auto) 4.5 x10^3uL (1.8-7.7) Lymphocytes # (Auto) 0.8 x10^3/uL (1.0-4.8) Monocytes # (Auto) 0.5 x10^3/uL (0.0-1.1) Eosinophils # (Auto) 0.1 x10^3/uL (0.0-0.7) Basophils # (Auto) 0.0 x10^3/uL (0.0-0.2) Sodium Level 136 mmol/L (136-145) Potassium Level 3.2 mmol/L (3.5-5.1) Chloride Level 103 mmol/L (98-107) Carbon Dioxide Level 21 mmol/L (21-32) Anion Gap 12 (6-14) Blood Urea Nitrogen 45 mg/dL (8-26) Creatinine 4.4 mg/dL (0.7-1.3) Estimated GFR (Cockcroft-Gault) 14.3 Glucose Level 301 mg/dL (70-99) Calcium Level 8.8 mg/dL (8.5-10.1) Results All relevant outside records, renal labs, imaging studies, telemetry/EKG's were reviewed. BASSEM BUSBY MD Jan 30, 2018 10:12
--- NOTE | 2018-01-30 10:41 | PDOC ---
PROGRESS NOTES Subjective Subjective HPI -f/u of Anemia ROS - no dyspnea Objective Objective Vital Signs Date Time Temp Pulse Resp B/P (MAP) Pulse Ox O2 Delivery O2 Flow Rate FiO2 01/30/18 08:17 93 186/60 01/30/18 08:00 Nasal Cannula 4.0 01/30/18 07:00 98.7 16 100 98.7 Intake and Output 01/30/18 07:00 Intake Total 740 ml Output Total 600 ml Balance 140 ml Intake Oral 740 ml Output Urine Total 600 ml Physical Exam Heart: Normal S1, Normal S2 General: Alert, Oriented X3 Lungs: Clear to auscultation Neuro: Normal speech Psych/Mental Status: Mental status NL Assessment Assessment Problems Medical Problems: (1) Hypertensive urgency Status: Acute (2) Intractable nausea and vomiting Status: Acute (3) Migraine headache Status: Acute IMPRESSION AND PLAN: 1. Anemia, progressively worse. This is multifactorial including underlying chronic kidney disease, worsening renal failure, pneumonia, congestive heart failure, antibiotics. His reticulocyte count is normal at 1.7 and hence I do not suspect hemolysis. There is no evidence of bleeding. I would continue to monitor hemoglobin and transfuse if the hemoglobin drops to below 7. Hb stable now at 7.4 on 01/29/18. Hb better at 7.9 on 01/30/18 Monitor cbc 2. Chronic kidney disease with worsening renal failure. Appreciate Nephrology consultation. The patient has a renal transplant in 2007 and he is on CellCept and Prograf. 3. Pneumonia. Appreciate ID and Pulmonary consultation. Comment Review of Relevant I have reviewed the following items nadiya (where applicable) has been applied. Labs Laboratory Tests Test 01/28/18 11:33 01/28/18 16:41 01/28/18 20:32 01/29/18 03:39 Glucose (Fingerstick) 266 mg/dL (70-99) 281 mg/dL (70-99) 295 mg/dL (70-99) 413 mg/dL (70-99) Test 01/29/18 05:00 01/29/18 06:06 01/29/18 07:58 01/29/18 11:42 White Blood Count 7.6 x10^3/uL (4.0-11.0) Red Blood Count 2.38 x10^6/uL (4.30-5.70) Hemoglobin 7.4 g/dL (13.0-17.5) Hematocrit 21.0 % (39.0-53.0) Mean Corpuscular Volume 88 fL (79-100) Mean Corpuscular Hemoglobin 31 pg (25-35) Mean Corpuscular Hemoglobin Concent 35 g/dL (31-37) Red Cell Distribution Width 13.4 % (11.5-14.5) Platelet Count 269 x10^3/uL (140-400) Neutrophils (%) (Auto) 79 % (31-73) Lymphocytes (%) (Auto) 12 % (24-48) Monocytes (%) (Auto) 7 % (0-9) Eosinophils (%) (Auto) 1 % (0-3) Basophils (%) (Auto) 0 % (0-3) Neutrophils # (Auto) 6.0 x10^3uL (1.8-7.7) Lymphocytes # (Auto) 0.9 x10^3/uL (1.0-4.8) Monocytes # (Auto) 0.6 x10^3/uL (0.0-1.1) Eosinophils # (Auto) 0.1 x10^3/uL (0.0-0.7) Basophils # (Auto) 0.0 x10^3/uL (0.0-0.2) Sodium Level 135 mmol/L (136-145) Potassium Level 3.4 mmol/L (3.5-5.1) Chloride Level 102 mmol/L (98-107) Carbon Dioxide Level 22 mmol/L (21-32) Anion Gap 11 (6-14) Blood Urea Nitrogen 43 mg/dL (8-26) Creatinine 4.4 mg/dL (0.7-1.3) Estimated GFR (Cockcroft-Gault) 14.3 Glucose Level 394 mg/dL (70-99) Calcium Level 8.5 mg/dL (8.5-10.1) Glucose (Fingerstick) 311 mg/dL (70-99) 248 mg/dL (70-99) 188 mg/dL (70-99) Test 01/29/18 16:32 01/29/18 16:48 01/29/18 20:30 01/30/18 01:07 Glucose (Fingerstick) 40 mg/dL (70-99) 110 mg/dL (70-99) 167 mg/dL (70-99) 273 mg/dL (70-99) Test 01/30/18 07:07 01/30/18 09:05 Glucose (Fingerstick) 277 mg/dL (70-99) White Blood Count 5.9 x10^3/uL (4.0-11.0) Red Blood Count 2.56 x10^6/uL (4.30-5.70) Hemoglobin 7.9 g/dL (13.0-17.5) Hematocrit 22.4 % (39.0-53.0) Mean Corpuscular Volume 88 fL (79-100) Mean Corpuscular Hemoglobin 31 pg (25-35) Mean Corpuscular Hemoglobin Concent 35 g/dL (31-37) Red Cell Distribution Width 13.2 % (11.5-14.5) Platelet Count 327 x10^3/uL (140-400) Neutrophils (%) (Auto) 77 % (31-73) Lymphocytes (%) (Auto) 13 % (24-48) Monocytes (%) (Auto) 8 % (0-9) Eosinophils (%) (Auto) 2 % (0-3) Basophils (%) (Auto) 0 % (0-3) Neutrophils # (Auto) 4.5 x10^3uL (1.8-7.7) Lymphocytes # (Auto) 0.8 x10^3/uL (1.0-4.8) Monocytes # (Auto) 0.5 x10^3/uL (0.0-1.1) Eosinophils # (Auto) 0.1 x10^3/uL (0.0-0.7) Basophils # (Auto) 0.0 x10^3/uL (0.0-0.2) Sodium Level 136 mmol/L (136-145) Potassium Level 3.2 mmol/L (3.5-5.1) Chloride Level 103 mmol/L (98-107) Carbon Dioxide Level 21 mmol/L (21-32) Anion Gap 12 (6-14) Blood Urea Nitrogen 45 mg/dL (8-26) Creatinine 4.4 mg/dL (0.7-1.3) Estimated GFR (Cockcroft-Gault) 14.3 Glucose Level 301 mg/dL (70-99) Calcium Level 8.8 mg/dL (8.5-10.1) Laboratory Tests Test 01/29/18 11:42 01/29/18 16:32 01/29/18 16:48 01/29/18 20:30 Glucose (Fingerstick) 188 mg/dL (70-99) 40 mg/dL (70-99) 110 mg/dL (70-99) 167 mg/dL (70-99) Test 01/30/18 01:07 01/30/18 07:07 01/30/18 09:05 Glucose (Fingerstick) 273 mg/dL (70-99) 277 mg/dL (70-99) White Blood Count 5.9 x10^3/uL (4.0-11.0) Red Blood Count 2.56 x10^6/uL (4.30-5.70) Hemoglobin 7.9 g/dL (13.0-17.5) Hematocrit 22.4 % (39.0-53.0) Mean Corpuscular Volume 88 fL (79-100) Mean Corpuscular Hemoglobin 31 pg (25-35) Mean Corpuscular Hemoglobin Concent 35 g/dL (31-37) Red Cell Distribution Width 13.2 % (11.5-14.5) Platelet Count 327 x10^3/uL (140-400) Neutrophils (%) (Auto) 77 % (31-73) Lymphocytes (%) (Auto) 13 % (24-48) Monocytes (%) (Auto) 8 % (0-9) Eosinophils (%) (Auto) 2 % (0-3) Basophils (%) (Auto) 0 % (0-3) Neutrophils # (Auto) 4.5 x10^3uL (1.8-7.7) Lymphocytes # (Auto) 0.8 x10^3/uL (1.0-4.8) Monocytes # (Auto) 0.5 x10^3/uL (0.0-1.1) Eosinophils # (Auto) 0.1 x10^3/uL (0.0-0.7) Basophils # (Auto) 0.0 x10^3/uL (0.0-0.2) Sodium Level 136 mmol/L (136-145) Potassium Level 3.2 mmol/L (3.5-5.1) Chloride Level 103 mmol/L (98-107) Carbon Dioxide Level 21 mmol/L (21-32) Anion Gap 12 (6-14) Blood Urea Nitrogen 45 mg/dL (8-26) Creatinine 4.4 mg/dL (0.7-1.3) Estimated GFR (Cockcroft-Gault) 14.3 Glucose Level 301 mg/dL (70-99) Calcium Level 8.8 mg/dL (8.5-10.1) Microbiology 01/26/18 Blood Culture - Preliminary, Resulted NO GROWTH AFTER 3 DAYS 01/28/18 - Final, Complete 01/28/18 - Final, Complete 01/28/18 - Final, Complete 01/28/18 - Final, Complete 01/28/18 - Final, Complete 01/28/18 Gram Stain Evaluation - Final, Complete 01/28/18 Sputum Culture - Final, Complete 01/27/18 Urine Culture - Final, Complete 01/27/18 Urine Culture Result 1 ([place]) - Final, Complete Medications Current Medications Sodium Chloride 1,000 ml @ 1,000 mls/hr Q1H IV Last administered on at 17:54; Start 01/23/18 at 17:21; Stop 01/23/18 at 18:20; Status DC Prochlorperazine Edisylate (Compazine) 10 mg 1X ONCE IV Last administered on 01/23/18at 17:55; Start 01/23/18 at 17:30; Stop 01/23/18 at 17:31; Status DC Diphenhydramine HCl (Benadryl) 25 mg 1X ONCE IVP Last administered on at 17:57; Start 01/23/18 at 17:30; Stop 01/23/18 at 17:31; Status DC Metoclopramide HCl (Reglan Vial) 10 mg 1X ONCE IV Last administered on at 19:24; Start 01/23/18 at 19:15; Stop 01/23/18 at 19:17; Status DC Diphenhydramine HCl (Benadryl) 25 mg 1X ONCE IVP Last administered on at 19:25; Start 01/23/18 at 19:15; Stop 01/23/18 at 19:17; Status DC Metoprolol Tartrate (Lopressor Vial) 5 mg 1X ONCE IVP Last administered on at 19:55; Start 01/23/18 at 19:45; Stop 01/23/18 at 19:46; Status DC Insulin Human Regular (HumuLIN R VIAL) 5 unit 1X ONCE IV Last administered on 01/23/18at 19:55; Start 01/23/18 at 19:45; Stop 01/23/18 at 19:46; Status DC Labetalol HCl (Normodyne Iv Push) 10 mg 1X ONCE IVP ; Start 01/23/18 at 20:30 ; Stop 01/23/18 at 20:31; Status DC Labetalol HCl (Normodyne Iv Push) 10 mg 1X ONCE IVP Last administered on 01/23at 22:29; Start 01/23/18 at 22:00; Stop 01/23/18 at 22:04; Status DC Ondansetron HCl (Zofran) 4 mg PRN Q8HRS PRN IV NAUSEA/VOMITING Last administered on 01/24/18at 00:16; Start 01/23/18 at 22:45; Stop 01/24/18 at 03 :05; Status DC Fentanyl Citrate (Fentanyl 2ml Vial) 50 mcg PRN Q2HR PRN IV PAIN Last administered on 01/24/18at 19:48; Start 01/23/18 at 22:45; Stop 01/24/18 at 22 :44; Status DC Sodium Chloride 1,000 ml @ 100 mls/hr Q10H IV Last administered on 01/24/18at 19:56; Start 01/23/18 at 22:37; Stop 01/24/18 at 22:36; Status DC Labetalol HCl (Normodyne Iv Push) 10 mg PRN Q30MIN PRN IVP SBP>180 Last administered on 01/24/18at 00:07; Start 01/23/18 at 22:45; Stop 01/24/18 at 00 :49; Status DC Insulin Human Lispro (HumaLOG) 0-5 UNITS TIDWMEALS SQ Last administered on at 08:36; Start 01/24/18 at 08:00 Dextrose (Dextrose 50%-Water Syringe) 12.5 gm PRN Q15MIN PRN IV SEE COMMENTS Last administered on 01/29/18at 16:45; Start 01/23/18 at 23:00 Labetalol HCl (Normodyne Iv Push) 20 mg PRN Q2HR PRN IVP HYPERTENSION, SEE COMMENTS Last administered on 01/24/18at 02:12; Start 01/24/18 at 00:45; Stop 01/25/18 at 14:21; Status DC Carvedilol (Coreg) 6.25 mg 1X ONCE PO ; Start 01/24/18 at 00:45; Stop at 00:49; Status DC Amlodipine Besylate (Norvasc) 5 mg 1X ONCE PO Last administered on 01/24/18at 01:00; Start 01/24/18 at 00:45; Stop 01/24/18 at 00:49; Status DC Oxycodone/ Acetaminophen (Percocet 5/325) 1 tab PRN Q4HRS PRN PO PAIN; Start 01/24/18 at 01:00 Carvedilol (Coreg) 12.5 mg 1X ONCE PO Last administered on 01/24/18at 01:05; Start 01/24/18 at 01:00; Stop 01/24/18 at 01:04; Status DC Nicardipine HCl 50 mg/Sodium Chloride 270 ml @ 32.4 mls/hr CONT PRN IV SEE I/ O RECORD Last administered on 01/27/18at 05:03; Start 01/24/18 at 03:00 Acetaminophen (Tylenol) 650 mg PRN Q6HRS PRN PEG MILD PAIN / TEMP; Start 01/24 at 03:15; Status Cancel Ondansetron HCl (Zofran) 4 mg PRN Q6HRS PRN IV NAUSEA/VOMITING, 1ST CHOICE Last administered on 01/26/18at 22:04; Start 01/24/18 at 03:15 Metoclopramide HCl (Reglan Vial) 5 mg PRN Q6HRS PRN IV NAUSEA/VOMITING, 3RD CHOICE Last administered on 01/25/18at 11:53; Start 01/24/18 at 03:15; Stop at 15:35; Status DC Prochlorperazine Edisylate (Compazine) 10 mg PRN Q6HRS PRN IV NAUSEA/VOMITING, 2ND CHOICE Last administered on 01/27/18at 06:31; Start 01/24/18 at 03:15 Pantoprazole Sodium (Protonix) 40 mg 1X ONCE PO Last administered on at 03:13; Start 01/24/18 at 03:30; Stop 01/24/18 at 03:31; Status DC Acetaminophen (Tylenol) 650 mg PRN Q6HRS PRN PO MIGRAINE HEADACHE Last administered on 01/27/18at 18:54; Start 01/24/18 at 03:15 Insulin Human Lispro (HumaLOG) 10 units 1X ONCE SQ Last administered on at 05:09; Start 01/24/18 at 05:00; Stop 01/24/18 at 05:02; Status DC Magnesium Sulfate/ Dextrose 100 ml @ 100 mls/hr 1X ONCE IV Last administered on 01/24/18at 12:01; Start 01/24/18 at 09:15; Stop 01/24/18 at 10:14; Status DC Metoprolol Tartrate (Lopressor Vial) 5 mg Q6HRS IVP Last administered on at 11:08; Start 01/24/18 at 11:00; Stop 01/25/18 at 11:41; Status DC Trimethobenzamide HCl (Tigan Im) 200 mg PRN Q6HRS PRN IM NAUSEA/VOMITING; Start 01/24/18 at 11:00 Morphine Sulfate (Morphine Sulfate) 2 mg PRN Q2HR PRN IV MODERATE PAIN; Start 01/24/18 at 11:00 Amlodipine Besylate (Norvasc) 5 mg DAILY PO Last administered on 01/30/18at 08: 16; Start 01/24/18 at 11:30 Clonidine HCl (Catapres) 0.2 mg BID PO Last administered on 01/30/18at 08:16; Start 01/24/18 at 11:30 Clopidogrel Bisulfate (Plavix) 75 mg DAILY PO Last administered on 01/30/18at 08:15; Start 01/24/18 at 11:30 Insulin Glargine (Lantus) 4 units DAILYWBKFT SQ ; Start 01/24/18 at 11:30; Stop 01/24/18 at 11:30; Status DC Insulin Glargine (Lantus) 4 units QHS SQ ; Start 01/24/18 at 21:00; Status UNV Carvedilol (Coreg) 25 mg BIDWMEALS PO Last administered on 01/30/18at 08:17; Start 01/24/18 at 17:00 Non-Formulary Medication (Hydrochlorothiazide (Hydrochlorothiazide Capsule ) ) 10 mg BID PO ; Start 01/24/18 at 21:00; Stop 01/24/18 at 21:00; Status DC Mycophenolate Mofetil (Cellcept) 250 mg BID PO Last administered on 01/24/18at 12:01; Start 01/24/18 at 12:00; Stop 01/24/18 at 15:58; Status DC Pantoprazole Sodium (Protonix) 40 mg DAILYAC PO ; Start 01/24/18 at 11:30; Stop 01/24/18 at 12:01; Status DC Tacrolimus (Prograf) 2 mg BID PO Last administered on 01/24/18at 12:02; Start 01/24/18 at 12:00; Stop 01/24/18 at 13:07; Status DC Insulin Glargine (Lantus) 4 units BID SQ Last administered on 01/29/18at 09:27 ; Start 01/24/18 at 11:30; Stop 01/29/18 at 11:29; Status DC Pantoprazole Sodium (PROTONIX VIAL for IV PUSH) 40 mg DAILYAC IVP Last administered on 01/25/18at 09:34; Start 01/24/18 at 13:00; Stop 01/25/18 at 15 :35; Status DC Tacrolimus (Prograf) 4 mg DAILY PO ; Start 01/25/18 at 09:00; Stop 01/25/18 at 09:00; Status DC Tacrolimus (Prograf) 3 mg QHS PO ; Start 01/24/18 at 21:00; Stop 01/24/18 at 21:00; Status DC Tacrolimus (Prograf) 2 mg DAILY SL Last administered on 01/27/18at 07:59; Start 01/25/18 at 09:00; Stop 01/27/18 at 17:15; Status DC Tacrolimus (Prograf) 1 mg QHS SL Last administered on 01/26/18at 21:33; Start 01/24/18 at 21:00; Stop 01/27/18 at 17:13; Status DC Sodium Chloride (Saline Mist Nasal) 1 bryan PRN Q1HR PRN NS NASAL CONGESTION; Start 01/24/18 at 15:00; Stop 01/24/18 at 17:28; Status DC Gabapentin (Neurontin) 100 mg TID PO Last administered on 01/30/18at 08:16; Start 01/24/18 at 16:00 Mycophenolate Mofetil 250 mg/ Dextrose 42 ml @ 21 mls/hr Q12H IV Last administered on 01/27/18at 09:33; Start 01/24/18 at 21:00; Stop 01/27/18 at 14 :11; Status DC Tacrolimus (Prograf) 0.5 mg QHS SL Last administered on 01/26/18at 21:33; Start 01/24/18 at 21:00; Stop 01/27/18 at 17:13; Status DC Sodium Chloride (Saline Mist Nasal) 1 bryan PRN Q1HR PRN NS NASAL CONGESTION; Start 01/24/18 at 17:30 Sodium Chloride 1,000 ml @ 75 mls/hr [id number] IV ; Start 01/25/18 at 07:30; Stop 01/27/18 at 15:58; Status DC Fentanyl Citrate (Fentanyl 2ml Vial) 50 mcg PRN Q3HRS PRN IV SEVERE PAIN Last administered on 01/26/18at 22:05; Start 01/25/18 at 09:15 Sodium Chloride 1,000 ml @ 75 mls/hr [id number] IV Last administered on at 09:35; Start 01/25/18 at 09:15; Stop 01/27/18 at 15:58; Status DC Metoprolol Tartrate (Lopressor Vial) 7.5 mg Q6HRS IVP ; Start 01/25/18 at 18:00 ; Stop 01/25/18 at 18:00; Status DC Clonidine HCl (Catapres Tts-3) 1 patch WEEKLY TD Last administered on at 14:02; Start 01/25/18 at 13:00 Labetalol HCl (Normodyne Iv Push) 20 mg PRN Q4HRS PRN IVP HYPERTENSION, SEE COMMENTS Last administered on 01/25/18at 14:05; Start 01/25/18 at 13:00 Ringer's Solution 1,000 ml @ 30 mls/hr Q24H IV ; Start 01/25/18 at 15:15; Status Cancel Propofol 20 ml @ As Directed STK-MED ONCE IV ; Start 01/25/18 at 15:07; Stop 01/25/18 at 15:08; Status DC Lidocaine HCl (Xylocaine-Mpf 1% 2ml Vial) 2 ml STK-MED ONCE .ROUTE ; Start at 15:07; Stop 01/25/18 at 15:08; Status DC Sodium Chloride 1,000 ml @ 0 mls/hr Q0M IV Last administered on 01/25/18at 15: 13; Start 01/25/18 at 15:15; Stop 01/25/18 at 15:43; Status DC Metoclopramide HCl (Reglan Vial) 5 mg Q6HRS IV Last administered on 01/28/18at 06:02; Start 01/25/18 at 18:00; Stop 01/28/18 at 09:59; Status DC Pantoprazole Sodium (PROTONIX VIAL for IV PUSH) 40 mg BIDAC IVP Last administered on 01/28/18at 08:59; Start 01/25/18 at 16:30; Stop 01/28/18 at 09 :59; Status DC Levofloxacin/ Dextrose 100 ml @ 100 mls/hr Q24H IV ; Start 01/26/18 at 08:30; Stop 01/26/18 at 09:32; Status DC Levalbuterol HCl (Xopenex) 1.25 mg PRN Q6HRS PRN NEB SHORTNESS OF BREATH Last administered on 01/27/18at 12:19; Start 01/26/18 at 08:45 Piperacillin Sod/ Tazobactam Sod (Zosyn Per Pharmacy) 1 each PRN DAILY PRN MC SEE COMMENTS; Start 01/26/18 at 10:00; Stop 01/28/18 at 10:56; Status DC Furosemide (Lasix) 40 mg DAILY IVP Last administered on 01/28/18at 08:59; Start 01/26/18 at 10:30 Piperacillin Sod/ Tazobactam Sod 3.375 gm/Sodium Chloride 50 ml @ 100 mls/hr Q6HRS IV Last administered on 01/28/18at 06:03; Start 01/26/18 at 11:00; Stop 01/28/18 at 10:46; Status DC Linezolid/Dextrose 300 ml @ 300 mls/hr Q12HR IV Last administered on at 20:11; Start 01/27/18 at 10:00; Stop 01/30/18 at 08:30; Status DC Mycophenolate Mofetil (Cellcept) 250 mg BID PO Last administered on 01/30/18at 08:15; Start 01/27/18 at 21:00 Tacrolimus (Prograf) 3 mg QHS PO Last administered on 01/29/18at 20:10; Start 01/27/18 at 21:00; Stop 01/30/18 at 05:04; Status DC Tacrolimus (Prograf) 4 mg DAILY PO Last administered on 01/30/18at 08:18; Start 01/28/18 at 09:00; Stop 01/30/18 at 12:00 Doxycycline Hyclate (Vibra-Tab) 100 mg BID PO Last administered on 01/28/18at 09:06; Start 01/28/18 at 09:00; Stop 01/28/18 at 10:52; Status DC Metoclopramide HCl (Reglan Vial) 5 mg QIDACHS IV ; Start 01/28/18 at 11:30; Stop 01/28/18 at 11:30; Status DC Pantoprazole Sodium (Protonix) 40 mg BIDAC PO Last administered on 01/30/18at 08:15; Start 01/28/18 at 10:30 Metoclopramide HCl (Reglan Oral Solution) 5 mg QIDACHS PO Last administered on 01/30/18at 08:17; Start 01/28/18 at 11:30 Cefepime HCl 1 gm/ Dextrose 50 ml @ 100 mls/hr DAILY IV ; Start 01/29/18 at 09 :00; Status UNV Cefepime HCl (Maxipime) 1 gm DAILY IVP Last administered on 01/30/18at 08:17; Start 01/28/18 at 12:00 Insulin Human Lispro (HumaLOG) 20 units 1X ONCE SQ Last administered on at 04:39; Start 01/29/18 at 05:00; Stop 01/29/18 at 05:01; Status DC Insulin Glargine (Lantus) 20 units TID SQ ; Start 01/29/18 at 14:00; Stop at 14:00; Status DC Insulin Human Lispro (HumaLOG) 10 units TIDAC SQ Last administered on at 12:24; Start 01/29/18 at 11:30; Stop 01/29/18 at 17:48; Status DC Insulin Glargine (Lantus) 20 units QHS SQ Last administered on 01/29/18at 21:54 ; Start 01/29/18 at 21:00 Docusate Sodium (Colace) 100 mg PRN DAILY PRN PO HARD STOOLS Last administered on 01/30/18at 08:16; Start 01/29/18 at 11:45 Polyethylene Glycol (miraLAX PACKET) 17 gm PRN DAILY PRN PO CONSTIPATION Last administered on 01/30/18at 08:20; Start 01/29/18 at 11:45 Insulin Human Lispro (HumaLOG) 6 units TIDAC SQ Last administered on at 08:35; Start 01/30/18 at 07:30 Tacrolimus (Prograf) 3 mg QHS PO ; Start 01/30/18 at 21:00 Tacrolimus (Prograf) 4 mg DAILY PO ; Start 01/31/18 at 09:00 Active Scripts Active Oxycodone-Acetaminophen 5-325 (Oxycodone Hcl/Acetaminophen) 1 Each Tablet 1 Tab PO PRN Q4HRS PRN Reported Prograf (Tacrolimus) 1 Mg Capsule 3 Cap PO QHS Prograf (Tacrolimus) 1 Mg Capsule 4 Cap PO DAILY Lantus Solostar (Insulin Glargine,Hum.rec.anlog) 100 Unit/1 Ml Insuln.pen 4 Unit SQ [id number] Lantus Solostar (Insulin Glargine,Hum.rec.anlog) 100 Unit/1 Ml Insuln.pen 4 Unit SQ QHS Amlodipine Besylate 5 Mg Tablet 5 Mg PO DAILY Clonidine Hcl 0.2 Mg Tablet 1 Tab PO BID Clopidogrel (Clopidogrel Bisulfate) 75 Mg Tablet 1 Tab PO DAILY Cellcept (Mycophenolate Mofetil) 250 Mg Capsule 1 Cap PO BID Pantoprazole Sodium 20 Mg Tablet.dr 20 Mg PO DAILY Hydrochlorothiazide Capsule (Hydrochlorothiazide) 12.5 Mg Capsule 10 Mg PO BID Carvedilol 25 Mg Tablet 2 Tab PO DAILYBFRSUP Vitals/I & O Vital Sign - Last 24 Hours 01/29/18 01/29/18 01/29/18 01/29/18 11:00 15:00 17:14 19:56 Temp 99.0 99.0 98.8 99.0 99.0 98.8 Pulse 85 84 86 88 Resp 20 20 16 B/P (MAP) 156/72 (100) 153/67 (95) 159/79 150/69 (96) Pulse Ox 100 99 98 O2 Delivery Nasal Cannula Nasal Cannula Nasal Cannula O2 Flow Rate 3.0 3.0 4.0 01/29/18 01/29/18 01/29/18 01/30/18 20:00 20:10 23:00 03:51 Temp 98.8 98.9 98.8 98.9 Pulse 88 86 87 Resp 16 16 B/P (MAP) 150/69 159/58 (91) 169/67 (101) Pulse Ox 100 100 O2 Delivery Nasal Cannula Nasal Cannula Nasal Cannula O2 Flow Rate 4.0 4.0 4.0 01/30/18 01/30/18 01/30/18 01/30/18 07:00 08:00 08:16 08:16 Temp 98.7 98.7 Pulse 93 93 93 Resp 16 B/P (MAP) 186/60 (102) 186/60 186/60 Pulse Ox 100 O2 Delivery Nasal Cannula Nasal Cannula O2 Flow Rate 4.0 4.0 01/30/18 08:17 Pulse 93 B/P (MAP) 186/60 Intake and Output 01/29/18 01/29/18 01/30/18 15:00 23:00 07:00 Intake Total 290 ml 450 ml Output Total 250 ml 350 ml Balance 290 ml -250 ml 100 ml LUDIN GARCIA MD Jan 30, 2018 10:41
[2018-01-30 11:00] VITALS: BP 163/62
--- NOTE | 2018-01-30 11:18 | PDOC ---
G I PROGRESS NOTE Subjective Asleep, not awakened. Objective No reports of any GI issues. Physical Exam No PE. Review of Relevant I have reviewed the following items nadiya (where applicable) has been applied. Labs Laboratory Tests Test 01/28/18 11:33 01/28/18 16:41 01/28/18 20:32 01/29/18 03:39 Glucose (Fingerstick) 266 mg/dL (70-99) 281 mg/dL (70-99) 295 mg/dL (70-99) 413 mg/dL (70-99) Test 01/29/18 05:00 01/29/18 06:06 01/29/18 07:58 01/29/18 11:42 White Blood Count 7.6 x10^3/uL (4.0-11.0) Red Blood Count 2.38 x10^6/uL (4.30-5.70) Hemoglobin 7.4 g/dL (13.0-17.5) Hematocrit 21.0 % (39.0-53.0) Mean Corpuscular Volume 88 fL (79-100) Mean Corpuscular Hemoglobin 31 pg (25-35) Mean Corpuscular Hemoglobin Concent 35 g/dL (31-37) Red Cell Distribution Width 13.4 % (11.5-14.5) Platelet Count 269 x10^3/uL (140-400) Neutrophils (%) (Auto) 79 % (31-73) Lymphocytes (%) (Auto) 12 % (24-48) Monocytes (%) (Auto) 7 % (0-9) Eosinophils (%) (Auto) 1 % (0-3) Basophils (%) (Auto) 0 % (0-3) Neutrophils # (Auto) 6.0 x10^3uL (1.8-7.7) Lymphocytes # (Auto) 0.9 x10^3/uL (1.0-4.8) Monocytes # (Auto) 0.6 x10^3/uL (0.0-1.1) Eosinophils # (Auto) 0.1 x10^3/uL (0.0-0.7) Basophils # (Auto) 0.0 x10^3/uL (0.0-0.2) Sodium Level 135 mmol/L (136-145) Potassium Level 3.4 mmol/L (3.5-5.1) Chloride Level 102 mmol/L (98-107) Carbon Dioxide Level 22 mmol/L (21-32) Anion Gap 11 (6-14) Blood Urea Nitrogen 43 mg/dL (8-26) Creatinine 4.4 mg/dL (0.7-1.3) Estimated GFR (Cockcroft-Gault) 14.3 Glucose Level 394 mg/dL (70-99) Calcium Level 8.5 mg/dL (8.5-10.1) Glucose (Fingerstick) 311 mg/dL (70-99) 248 mg/dL (70-99) 188 mg/dL (70-99) Test 01/29/18 16:32 01/29/18 16:48 01/29/18 20:30 01/30/18 01:07 Glucose (Fingerstick) 40 mg/dL (70-99) 110 mg/dL (70-99) 167 mg/dL (70-99) 273 mg/dL (70-99) Test 01/30/18 07:07 01/30/18 09:05 Glucose (Fingerstick) 277 mg/dL (70-99) White Blood Count 5.9 x10^3/uL (4.0-11.0) Red Blood Count 2.56 x10^6/uL (4.30-5.70) Hemoglobin 7.9 g/dL (13.0-17.5) Hematocrit 22.4 % (39.0-53.0) Mean Corpuscular Volume 88 fL (79-100) Mean Corpuscular Hemoglobin 31 pg (25-35) Mean Corpuscular Hemoglobin Concent 35 g/dL (31-37) Red Cell Distribution Width 13.2 % (11.5-14.5) Platelet Count 327 x10^3/uL (140-400) Neutrophils (%) (Auto) 77 % (31-73) Lymphocytes (%) (Auto) 13 % (24-48) Monocytes (%) (Auto) 8 % (0-9) Eosinophils (%) (Auto) 2 % (0-3) Basophils (%) (Auto) 0 % (0-3) Neutrophils # (Auto) 4.5 x10^3uL (1.8-7.7) Lymphocytes # (Auto) 0.8 x10^3/uL (1.0-4.8) Monocytes # (Auto) 0.5 x10^3/uL (0.0-1.1) Eosinophils # (Auto) 0.1 x10^3/uL (0.0-0.7) Basophils # (Auto) 0.0 x10^3/uL (0.0-0.2) Sodium Level 136 mmol/L (136-145) Potassium Level 3.2 mmol/L (3.5-5.1) Chloride Level 103 mmol/L (98-107) Carbon Dioxide Level 21 mmol/L (21-32) Anion Gap 12 (6-14) Blood Urea Nitrogen 45 mg/dL (8-26) Creatinine 4.4 mg/dL (0.7-1.3) Estimated GFR (Cockcroft-Gault) 14.3 Glucose Level 301 mg/dL (70-99) Calcium Level 8.8 mg/dL (8.5-10.1) Laboratory Tests Test 01/29/18 11:42 01/29/18 16:32 01/29/18 16:48 01/29/18 20:30 Glucose (Fingerstick) 188 mg/dL (70-99) 40 mg/dL (70-99) 110 mg/dL (70-99) 167 mg/dL (70-99) Test 01/30/18 01:07 01/30/18 07:07 01/30/18 09:05 Glucose (Fingerstick) 273 mg/dL (70-99) 277 mg/dL (70-99) White Blood Count 5.9 x10^3/uL (4.0-11.0) Red Blood Count 2.56 x10^6/uL (4.30-5.70) Hemoglobin 7.9 g/dL (13.0-17.5) Hematocrit 22.4 % (39.0-53.0) Mean Corpuscular Volume 88 fL (79-100) Mean Corpuscular Hemoglobin 31 pg (25-35) Mean Corpuscular Hemoglobin Concent 35 g/dL (31-37) Red Cell Distribution Width 13.2 % (11.5-14.5) Platelet Count 327 x10^3/uL (140-400) Neutrophils (%) (Auto) 77 % (31-73) Lymphocytes (%) (Auto) 13 % (24-48) Monocytes (%) (Auto) 8 % (0-9) Eosinophils (%) (Auto) 2 % (0-3) Basophils (%) (Auto) 0 % (0-3) Neutrophils # (Auto) 4.5 x10^3uL (1.8-7.7) Lymphocytes # (Auto) 0.8 x10^3/uL (1.0-4.8) Monocytes # (Auto) 0.5 x10^3/uL (0.0-1.1) Eosinophils # (Auto) 0.1 x10^3/uL (0.0-0.7) Basophils # (Auto) 0.0 x10^3/uL (0.0-0.2) Sodium Level 136 mmol/L (136-145) Potassium Level 3.2 mmol/L (3.5-5.1) Chloride Level 103 mmol/L (98-107) Carbon Dioxide Level 21 mmol/L (21-32) Anion Gap 12 (6-14) Blood Urea Nitrogen 45 mg/dL (8-26) Creatinine 4.4 mg/dL (0.7-1.3) Estimated GFR (Cockcroft-Gault) 14.3 Glucose Level 301 mg/dL (70-99) Calcium Level 8.8 mg/dL (8.5-10.1) Microbiology 01/26/18 Blood Culture - Preliminary, Resulted NO GROWTH AFTER 3 DAYS 01/28/18 - Final, Complete 01/28/18 - Final, Complete 01/28/18 - Final, Complete 01/28/18 - Final, Complete 01/28/18 - Final, Complete 01/28/18 Gram Stain Evaluation - Final, Complete 01/28/18 Sputum Culture - Final, Complete 01/27/18 Urine Culture - Final, Complete 01/27/18 Urine Culture Result 1 ([place]) - Final, Complete Vitals/I & O Vital Sign - Last 24 Hours 01/29/18 01/29/18 01/29/18 01/29/18 15:00 17:14 19:56 20:00 Temp 99.0 98.8 99.0 98.8 Pulse 84 86 88 Resp 20 16 B/P (MAP) 153/67 (95) 159/79 150/69 (96) Pulse Ox 99 98 O2 Delivery Nasal Cannula Nasal Cannula Nasal Cannula O2 Flow Rate 3.0 4.0 4.0 01/29/18 01/29/18 01/30/18 01/30/18 20:10 23:00 03:51 07:00 Temp 98.8 98.9 98.7 98.8 98.9 98.7 Pulse 88 86 87 93 Resp 16 16 16 B/P (MAP) 150/69 159/58 (91) 169/67 (101) 186/60 (102) Pulse Ox 100 100 100 O2 Delivery Nasal Cannula Nasal Cannula Nasal Cannula O2 Flow Rate 4.0 4.0 4.0 01/30/18 01/30/18 01/30/18 01/30/18 08:00 08:16 08:16 08:17 Pulse 93 93 93 B/P (MAP) 186/60 186/60 186/60 O2 Delivery Nasal Cannula O2 Flow Rate 4.0 01/30/18 11:00 Temp 99.1 99.1 Pulse 83 Resp 16 B/P (MAP) 163/62 (95) Pulse Ox 100 O2 Delivery Nasal Cannula O2 Flow Rate 4.0 Intake and Output 01/29/18 01/29/18 01/30/18 15:00 23:00 07:00 Intake Total 290 ml 450 ml Output Total 250 ml 350 ml Balance 290 ml -250 ml 100 ml Problem List Problems Medical Problems: (1) Hypertensive urgency Status: Acute (2) Intractable nausea and vomiting Status: Acute (3) Migraine headache Status: Acute Assessment Gastroparesis. Seems stable on prokinetic. Plan of Care: Continue current Tx, Mgmt VIRGINIA FERNANDEZ MD Jan 30, 2018 11:18
--- NOTE | 2018-01-30 11:37 | PDOC ---
PULMONARY PROGRESS NOTES Subjective PT BETTER OFF BIPAP Vitals Vital Signs Date Time Temp Pulse Resp B/P (MAP) Pulse Ox O2 Delivery O2 Flow Rate FiO2 01/30/18 11:00 99.1 83 16 163/62 (95) 100 Nasal Cannula 4.0 99.1 ROS: No Nausea, No Chest Pain, No Abdominal Pain General: Alert, No acute distress Lungs: Clear Cardiovascular: S1, S2 Abdomen: Soft Neuro Exam: Alert Extremities: Other (bka) Skin: Warm Labs Laboratory Tests Test 01/28/18 16:41 01/28/18 20:32 01/29/18 03:39 01/29/18 05:00 Glucose (Fingerstick) 281 mg/dL (70-99) 295 mg/dL (70-99) 413 mg/dL (70-99) White Blood Count 7.6 x10^3/uL (4.0-11.0) Red Blood Count 2.38 x10^6/uL (4.30-5.70) Hemoglobin 7.4 g/dL (13.0-17.5) Hematocrit 21.0 % (39.0-53.0) Mean Corpuscular Volume 88 fL (79-100) Mean Corpuscular Hemoglobin 31 pg (25-35) Mean Corpuscular Hemoglobin Concent 35 g/dL (31-37) Red Cell Distribution Width 13.4 % (11.5-14.5) Platelet Count 269 x10^3/uL (140-400) Neutrophils (%) (Auto) 79 % (31-73) Lymphocytes (%) (Auto) 12 % (24-48) Monocytes (%) (Auto) 7 % (0-9) Eosinophils (%) (Auto) 1 % (0-3) Basophils (%) (Auto) 0 % (0-3) Neutrophils # (Auto) 6.0 x10^3uL (1.8-7.7) Lymphocytes # (Auto) 0.9 x10^3/uL (1.0-4.8) Monocytes # (Auto) 0.6 x10^3/uL (0.0-1.1) Eosinophils # (Auto) 0.1 x10^3/uL (0.0-0.7) Basophils # (Auto) 0.0 x10^3/uL (0.0-0.2) Sodium Level 135 mmol/L (136-145) Potassium Level 3.4 mmol/L (3.5-5.1) Chloride Level 102 mmol/L (98-107) Carbon Dioxide Level 22 mmol/L (21-32) Anion Gap 11 (6-14) Blood Urea Nitrogen 43 mg/dL (8-26) Creatinine 4.4 mg/dL (0.7-1.3) Estimated GFR (Cockcroft-Gault) 14.3 Glucose Level 394 mg/dL (70-99) Calcium Level 8.5 mg/dL (8.5-10.1) Test 01/29/18 06:06 01/29/18 07:58 01/29/18 11:42 01/29/18 16:32 Glucose (Fingerstick) 311 mg/dL (70-99) 248 mg/dL (70-99) 188 mg/dL (70-99) 40 mg/dL (70-99) Test 01/29/18 16:48 01/29/18 20:30 01/30/18 01:07 01/30/18 07:07 Glucose (Fingerstick) 110 mg/dL (70-99) 167 mg/dL (70-99) 273 mg/dL (70-99) 277 mg/dL (70-99) Test 01/30/18 09:05 01/30/18 11:23 White Blood Count 5.9 x10^3/uL (4.0-11.0) Red Blood Count 2.56 x10^6/uL (4.30-5.70) Hemoglobin 7.9 g/dL (13.0-17.5) Hematocrit 22.4 % (39.0-53.0) Mean Corpuscular Volume 88 fL (79-100) Mean Corpuscular Hemoglobin 31 pg (25-35) Mean Corpuscular Hemoglobin Concent 35 g/dL (31-37) Red Cell Distribution Width 13.2 % (11.5-14.5) Platelet Count 327 x10^3/uL (140-400) Neutrophils (%) (Auto) 77 % (31-73) Lymphocytes (%) (Auto) 13 % (24-48) Monocytes (%) (Auto) 8 % (0-9) Eosinophils (%) (Auto) 2 % (0-3) Basophils (%) (Auto) 0 % (0-3) Neutrophils # (Auto) 4.5 x10^3uL (1.8-7.7) Lymphocytes # (Auto) 0.8 x10^3/uL (1.0-4.8) Monocytes # (Auto) 0.5 x10^3/uL (0.0-1.1) Eosinophils # (Auto) 0.1 x10^3/uL (0.0-0.7) Basophils # (Auto) 0.0 x10^3/uL (0.0-0.2) Sodium Level 136 mmol/L (136-145) Potassium Level 3.2 mmol/L (3.5-5.1) Chloride Level 103 mmol/L (98-107) Carbon Dioxide Level 21 mmol/L (21-32) Anion Gap 12 (6-14) Blood Urea Nitrogen 45 mg/dL (8-26) Creatinine 4.4 mg/dL (0.7-1.3) Estimated GFR (Cockcroft-Gault) 14.3 Glucose Level 301 mg/dL (70-99) Calcium Level 8.8 mg/dL (8.5-10.1) Glucose (Fingerstick) 197 mg/dL (70-99) Laboratory Tests Test 01/29/18 11:42 01/29/18 16:32 01/29/18 16:48 01/29/18 20:30 Glucose (Fingerstick) 188 mg/dL (70-99) 40 mg/dL (70-99) 110 mg/dL (70-99) 167 mg/dL (70-99) Test 01/30/18 01:07 01/30/18 07:07 01/30/18 09:05 01/30/18 11:23 Glucose (Fingerstick) 273 mg/dL (70-99) 277 mg/dL (70-99) 197 mg/dL (70-99) White Blood Count 5.9 x10^3/uL (4.0-11.0) Red Blood Count 2.56 x10^6/uL (4.30-5.70) Hemoglobin 7.9 g/dL (13.0-17.5) Hematocrit 22.4 % (39.0-53.0) Mean Corpuscular Volume 88 fL (79-100) Mean Corpuscular Hemoglobin 31 pg (25-35) Mean Corpuscular Hemoglobin Concent 35 g/dL (31-37) Red Cell Distribution Width 13.2 % (11.5-14.5) Platelet Count 327 x10^3/uL (140-400) Neutrophils (%) (Auto) 77 % (31-73) Lymphocytes (%) (Auto) 13 % (24-48) Monocytes (%) (Auto) 8 % (0-9) Eosinophils (%) (Auto) 2 % (0-3) Basophils (%) (Auto) 0 % (0-3) Neutrophils # (Auto) 4.5 x10^3uL (1.8-7.7) Lymphocytes # (Auto) 0.8 x10^3/uL (1.0-4.8) Monocytes # (Auto) 0.5 x10^3/uL (0.0-1.1) Eosinophils # (Auto) 0.1 x10^3/uL (0.0-0.7) Basophils # (Auto) 0.0 x10^3/uL (0.0-0.2) Sodium Level 136 mmol/L (136-145) Potassium Level 3.2 mmol/L (3.5-5.1) Chloride Level 103 mmol/L (98-107) Carbon Dioxide Level 21 mmol/L (21-32) Anion Gap 12 (6-14) Blood Urea Nitrogen 45 mg/dL (8-26) Creatinine 4.4 mg/dL (0.7-1.3) Estimated GFR (Cockcroft-Gault) 14.3 Glucose Level 301 mg/dL (70-99) Calcium Level 8.8 mg/dL (8.5-10.1) Medications Active Scripts Medications Dose Route/Sig Max Daily Dose Days Date Category Prograf (Tacrolimus) 1 Mg Capsule 3 Cap PO QHS 01/24/18 Reported Prograf (Tacrolimus) 1 Mg Capsule 4 Cap PO DAILY 01/24/18 Reported Lantus Solostar (Insulin Glargine,Hum.rec.anlog) 100 Unit/1 Ml Insuln.pen 4 Unit SQ [id number] 01/24/18 Reported Lantus Solostar (Insulin Glargine,Hum.rec.anlog) 100 Unit/1 Ml Insuln.pen 4 Unit SQ QHS 01/24/18 Reported Amlodipine Besylate 5 Mg Tablet 5 Mg PO DAILY 01/24/18 Reported Clonidine Hcl 0.2 Mg Tablet 1 Tab PO BID 01/24/18 Reported Oxycodone-Acetaminophen 5-325 (Oxycodone Hcl/Acetaminophen) 1 Each Tablet 1 Tab PO PRN Q4HRS PRN 07/15/16 Rx Clopidogrel (Clopidogrel Bisulfate) 75 Mg Tablet 1 Tab PO DAILY 07/15/16 Reported Cellcept (Mycophenolate Mofetil) 250 Mg Capsule 1 Cap PO BID 07/15/16 Reported Pantoprazole Sodium 20 Mg Tablet.dr 20 Mg PO DAILY 07/15/16 Reported Hydrochlorothiazide Capsule (Hydrochlorothiazide) 12.5 Mg Capsule 10 Mg PO BID 07/15/16 Reported Carvedilol 25 Mg Tablet 2 Tab PO [id number] 07/15/16 Reported Impression . IMPRESSION: 1. Acute respiratory failure. 2. Abnormal cxr 01/27 with bilateral infiltrates, suspect pneumonia, suspect gram negative/ ? CHF 3. suspect Acute on chronic heart failure. 4. End-stage renal disease, status post renal transplant. 5. Immunocompromised. 6. Accelerated hypertension. 7. Type 2 diabetes. 8. ACUTE DROP IN HGB Plan . NO SOA PRN BIPAP F/U CXR WITH NO CHANGE/ WILL DO CT CHEST MONITOR H/H D/W RENAL. ABX AMBULATE WITH PROSTHESIS KEENAN CORTEZ MD Jan 30, 2018 11:37
[2018-01-30] MEDS ORDERED: MAGNESIUM CITRATE 296 ML SOLUTION. PO PRN (13:15)
[2018-01-30] MEDS ORDERED: BISACODYL 10 MG SUPP.RECT. PR PRN (13:15)
--- NOTE | 2018-01-30 13:15 | PDOC ---
PROGRESS NOTES Chief Complaint Chief Complaint Hypokalemia Constipation [facility] HTN Severe anemia - improving H/o cluster headache H/o renal transplant 2007 H/o DM1 H/o HLP H/o CAD History of Present Illness History of Present Illness Pt seen and examined while sitting upright in bed Discussed w/RN and returned case inspector Discussed w/pt Vitals Vitals Vital Signs Date Time Temp Pulse Resp B/P (MAP) Pulse Ox O2 Delivery O2 Flow Rate FiO2 01/30/18 11:00 99.1 83 16 163/62 (95) 100 Nasal Cannula 4.0 99.1 Physical Exam Physical Exam HEENT: Oral cavity, pharynx pink, dry Neck: Supple. No JVD General: Alert, Oriented X3, Cooperative, No acute distress Heart: Regular rate, Normal S1, Normal S2, No murmurs Lungs: Clear, Other (no longer requiring O2) Abdomen: No tenderness Extremities: No clubbing, No cyanosis, Other (bilateral BKAs) Skin: No rashes, No breakdown, No significant lesion Labs LABS Laboratory Tests Test 01/29/18 16:32 01/29/18 16:48 01/29/18 20:30 01/30/18 01:07 Glucose (Fingerstick) 40 mg/dL (70-99) 110 mg/dL (70-99) 167 mg/dL (70-99) 273 mg/dL (70-99) Test 01/30/18 07:07 01/30/18 09:05 01/30/18 11:23 Glucose (Fingerstick) 277 mg/dL (70-99) 197 mg/dL (70-99) White Blood Count 5.9 x10^3/uL (4.0-11.0) Red Blood Count 2.56 x10^6/uL (4.30-5.70) Hemoglobin 7.9 g/dL (13.0-17.5) Hematocrit 22.4 % (39.0-53.0) Mean Corpuscular Volume 88 fL (79-100) Mean Corpuscular Hemoglobin 31 pg (25-35) Mean Corpuscular Hemoglobin Concent 35 g/dL (31-37) Red Cell Distribution Width 13.2 % (11.5-14.5) Platelet Count 327 x10^3/uL (140-400) Neutrophils (%) (Auto) 77 % (31-73) Lymphocytes (%) (Auto) 13 % (24-48) Monocytes (%) (Auto) 8 % (0-9) Eosinophils (%) (Auto) 2 % (0-3) Basophils (%) (Auto) 0 % (0-3) Neutrophils # (Auto) 4.5 x10^3uL (1.8-7.7) Lymphocytes # (Auto) 0.8 x10^3/uL (1.0-4.8) Monocytes # (Auto) 0.5 x10^3/uL (0.0-1.1) Eosinophils # (Auto) 0.1 x10^3/uL (0.0-0.7) Basophils # (Auto) 0.0 x10^3/uL (0.0-0.2) Sodium Level 136 mmol/L (136-145) Potassium Level 3.2 mmol/L (3.5-5.1) Chloride Level 103 mmol/L (98-107) Carbon Dioxide Level 21 mmol/L (21-32) Anion Gap 12 (6-14) Blood Urea Nitrogen 45 mg/dL (8-26) Creatinine 4.4 mg/dL (0.7-1.3) Estimated GFR (Cockcroft-Gault) 14.3 Glucose Level 301 mg/dL (70-99) Calcium Level 8.8 mg/dL (8.5-10.1) Review of Systems Review of Systems C/o constipation Aside from the constipation, pt has no complaints and says he is feeling much better today Assessment and Plan Assessmemt and Plan Problems Medical Problems: (1) Hypertensive urgency Status: Acute (2) Intractable nausea and vomiting Status: Acute (3) Migraine headache Status: Acute Assessment: Hypokalemia Constipation [facility] pneumonia HTN Severe anemia - improving H/o cluster headache H/o renal transplant 2007 H/o DM1 H/o HLP H/o CAD Plan: PRN laxatives Potassium replacement Cardiac monitoring Monitor labs Home meds IV abx PT/OT DVT ppx Possible d/c to [facility] Comment Review of Relevant I have reviewed the following items nadiya (where applicable) has been applied. Labs Laboratory Tests Test 01/28/18 16:41 01/28/18 20:32 01/29/18 03:39 01/29/18 05:00 Glucose (Fingerstick) 281 mg/dL (70-99) 295 mg/dL (70-99) 413 mg/dL (70-99) White Blood Count 7.6 x10^3/uL (4.0-11.0) Red Blood Count 2.38 x10^6/uL (4.30-5.70) Hemoglobin 7.4 g/dL (13.0-17.5) Hematocrit 21.0 % (39.0-53.0) Mean Corpuscular Volume 88 fL (79-100) Mean Corpuscular Hemoglobin 31 pg (25-35) Mean Corpuscular Hemoglobin Concent 35 g/dL (31-37) Red Cell Distribution Width 13.4 % (11.5-14.5) Platelet Count 269 x10^3/uL (140-400) Neutrophils (%) (Auto) 79 % (31-73) Lymphocytes (%) (Auto) 12 % (24-48) Monocytes (%) (Auto) 7 % (0-9) Eosinophils (%) (Auto) 1 % (0-3) Basophils (%) (Auto) 0 % (0-3) Neutrophils # (Auto) 6.0 x10^3uL (1.8-7.7) Lymphocytes # (Auto) 0.9 x10^3/uL (1.0-4.8) Monocytes # (Auto) 0.6 x10^3/uL (0.0-1.1) Eosinophils # (Auto) 0.1 x10^3/uL (0.0-0.7) Basophils # (Auto) 0.0 x10^3/uL (0.0-0.2) Sodium Level 135 mmol/L (136-145) Potassium Level 3.4 mmol/L (3.5-5.1) Chloride Level 102 mmol/L (98-107) Carbon Dioxide Level 22 mmol/L (21-32) Anion Gap 11 (6-14) Blood Urea Nitrogen 43 mg/dL (8-26) Creatinine 4.4 mg/dL (0.7-1.3) Estimated GFR (Cockcroft-Gault) 14.3 Glucose Level 394 mg/dL (70-99) Calcium Level 8.5 mg/dL (8.5-10.1) Test 01/29/18 06:06 01/29/18 07:58 01/29/18 11:42 01/29/18 16:32 Glucose (Fingerstick) 311 mg/dL (70-99) 248 mg/dL (70-99) 188 mg/dL (70-99) 40 mg/dL (70-99) Test 01/29/18 16:48 01/29/18 20:30 01/30/18 01:07 01/30/18 07:07 Glucose (Fingerstick) 110 mg/dL (70-99) 167 mg/dL (70-99) 273 mg/dL (70-99) 277 mg/dL (70-99) Test 01/30/18 09:05 01/30/18 11:23 White Blood Count 5.9 x10^3/uL (4.0-11.0) Red Blood Count 2.56 x10^6/uL (4.30-5.70) Hemoglobin 7.9 g/dL (13.0-17.5) Hematocrit 22.4 % (39.0-53.0) Mean Corpuscular Volume 88 fL (79-100) Mean Corpuscular Hemoglobin 31 pg (25-35) Mean Corpuscular Hemoglobin Concent 35 g/dL (31-37) Red Cell Distribution Width 13.2 % (11.5-14.5) Platelet Count 327 x10^3/uL (140-400) Neutrophils (%) (Auto) 77 % (31-73) Lymphocytes (%) (Auto) 13 % (24-48) Monocytes (%) (Auto) 8 % (0-9) Eosinophils (%) (Auto) 2 % (0-3) Basophils (%) (Auto) 0 % (0-3) Neutrophils # (Auto) 4.5 x10^3uL (1.8-7.7) Lymphocytes # (Auto) 0.8 x10^3/uL (1.0-4.8) Monocytes # (Auto) 0.5 x10^3/uL (0.0-1.1) Eosinophils # (Auto) 0.1 x10^3/uL (0.0-0.7) Basophils # (Auto) 0.0 x10^3/uL (0.0-0.2) Sodium Level 136 mmol/L (136-145) Potassium Level 3.2 mmol/L (3.5-5.1) Chloride Level 103 mmol/L (98-107) Carbon Dioxide Level 21 mmol/L (21-32) Anion Gap 12 (6-14) Blood Urea Nitrogen 45 mg/dL (8-26) Creatinine 4.4 mg/dL (0.7-1.3) Estimated GFR (Cockcroft-Gault) 14.3 Glucose Level 301 mg/dL (70-99) Calcium Level 8.8 mg/dL (8.5-10.1) Glucose (Fingerstick) 197 mg/dL (70-99) Laboratory Tests Test 01/29/18 16:32 01/29/18 16:48 01/29/18 20:30 01/30/18 01:07 Glucose (Fingerstick) 40 mg/dL (70-99) 110 mg/dL (70-99) 167 mg/dL (70-99) 273 mg/dL (70-99) Test 01/30/18 07:07 01/30/18 09:05 01/30/18 11:23 Glucose (Fingerstick) 277 mg/dL (70-99) 197 mg/dL (70-99) White Blood Count 5.9 x10^3/uL (4.0-11.0) Red Blood Count 2.56 x10^6/uL (4.30-5.70) Hemoglobin 7.9 g/dL (13.0-17.5) Hematocrit 22.4 % (39.0-53.0) Mean Corpuscular Volume 88 fL (79-100) Mean Corpuscular Hemoglobin 31 pg (25-35) Mean Corpuscular Hemoglobin Concent 35 g/dL (31-37) Red Cell Distribution Width 13.2 % (11.5-14.5) Platelet Count 327 x10^3/uL (140-400) Neutrophils (%) (Auto) 77 % (31-73) Lymphocytes (%) (Auto) 13 % (24-48) Monocytes (%) (Auto) 8 % (0-9) Eosinophils (%) (Auto) 2 % (0-3) Basophils (%) (Auto) 0 % (0-3) Neutrophils # (Auto) 4.5 x10^3uL (1.8-7.7) Lymphocytes # (Auto) 0.8 x10^3/uL (1.0-4.8) Monocytes # (Auto) 0.5 x10^3/uL (0.0-1.1) Eosinophils # (Auto) 0.1 x10^3/uL (0.0-0.7) Basophils # (Auto) 0.0 x10^3/uL (0.0-0.2) Sodium Level 136 mmol/L (136-145) Potassium Level 3.2 mmol/L (3.5-5.1) Chloride Level 103 mmol/L (98-107) Carbon Dioxide Level 21 mmol/L (21-32) Anion Gap 12 (6-14) Blood Urea Nitrogen 45 mg/dL (8-26) Creatinine 4.4 mg/dL (0.7-1.3) Estimated GFR (Cockcroft-Gault) 14.3 Glucose Level 301 mg/dL (70-99) Calcium Level 8.8 mg/dL (8.5-10.1) Microbiology 01/26/18 Blood Culture - Preliminary, Resulted NO GROWTH AFTER 3 DAYS 01/28/18 - Final, Complete 01/28/18 - Final, Complete 01/28/18 - Final, Complete 01/28/18 - Final, Complete 01/28/18 - Final, Complete 01/28/18 Gram Stain Evaluation - Final, Complete 01/28/18 Sputum Culture - Final, Complete 01/27/18 Urine Culture - Final, Complete 01/27/18 Urine Culture Result 1 ([facility]) - Final, Complete Medications Current Medications Sodium Chloride 1,000 ml @ 1,000 mls/hr Q1H IV Last administered on at 17:54; Start 01/23/18 at 17:21; Stop 01/23/18 at 18:20; Status DC Prochlorperazine Edisylate (Compazine) 10 mg 1X ONCE IV Last administered on 01/23/18at 17:55; Start 01/23/18 at 17:30; Stop 01/23/18 at 17:31; Status DC Diphenhydramine HCl (Benadryl) 25 mg 1X ONCE IVP Last administered on at 17:57; Start 01/23/18 at 17:30; Stop 01/23/18 at 17:31; Status DC Metoclopramide HCl (Reglan Vial) 10 mg 1X ONCE IV Last administered on at 19:24; Start 01/23/18 at 19:15; Stop 01/23/18 at 19:17; Status DC Diphenhydramine HCl (Benadryl) 25 mg 1X ONCE IVP Last administered on at 19:25; Start 01/23/18 at 19:15; Stop 01/23/18 at 19:17; Status DC Metoprolol Tartrate (Lopressor Vial) 5 mg 1X ONCE IVP Last administered on at 19:55; Start 01/23/18 at 19:45; Stop 01/23/18 at 19:46; Status DC Insulin Human Regular (HumuLIN R VIAL) 5 unit 1X ONCE IV Last administered on 01/23/18at 19:55; Start 01/23/18 at 19:45; Stop 01/23/18 at 19:46; Status DC Labetalol HCl (Normodyne Iv Push) 10 mg 1X ONCE IVP ; Start 01/23/18 at 20:30 ; Stop 01/23/18 at 20:31; Status DC Labetalol HCl (Normodyne Iv Push) 10 mg 1X ONCE IVP Last administered on 01/23at 22:29; Start 01/23/18 at 22:00; Stop 01/23/18 at 22:04; Status DC Ondansetron HCl (Zofran) 4 mg PRN Q8HRS PRN IV NAUSEA/VOMITING Last administered on 01/24/18at 00:16; Start 01/23/18 at 22:45; Stop 01/24/18 at 03 :05; Status DC Fentanyl Citrate (Fentanyl 2ml Vial) 50 mcg PRN Q2HR PRN IV PAIN Last administered on 01/24/18at 19:48; Start 01/23/18 at 22:45; Stop 01/24/18 at 22 :44; Status DC Sodium Chloride 1,000 ml @ 100 mls/hr Q10H IV Last administered on 01/24/18at 19:56; Start 01/23/18 at 22:37; Stop 01/24/18 at 22:36; Status DC Labetalol HCl (Normodyne Iv Push) 10 mg PRN Q30MIN PRN IVP SBP>180 Last administered on 01/24/18at 00:07; Start 01/23/18 at 22:45; Stop 01/24/18 at 00 :49; Status DC Insulin Human Lispro (HumaLOG) 0-5 UNITS TIDWMEALS SQ Last administered on at 11:46; Start 01/24/18 at 08:00 Dextrose (Dextrose 50%-Water Syringe) 12.5 gm PRN Q15MIN PRN IV SEE COMMENTS Last administered on 01/29/18at 16:45; Start 01/23/18 at 23:00 Labetalol HCl (Normodyne Iv Push) 20 mg PRN Q2HR PRN IVP HYPERTENSION, SEE COMMENTS Last administered on 01/24/18at 02:12; Start 01/24/18 at 00:45; Stop 01/25/18 at 14:21; Status DC Carvedilol (Coreg) 6.25 mg 1X ONCE PO ; Start 01/24/18 at 00:45; Stop at 00:49; Status DC Amlodipine Besylate (Norvasc) 5 mg 1X ONCE PO Last administered on 01/24/18at 01:00; Start 01/24/18 at 00:45; Stop 01/24/18 at 00:49; Status DC Oxycodone/ Acetaminophen (Percocet 5/325) 1 tab PRN Q4HRS PRN PO PAIN; Start 01/24/18 at 01:00 Carvedilol (Coreg) 12.5 mg 1X ONCE PO Last administered on 01/24/18at 01:05; Start 01/24/18 at 01:00; Stop 01/24/18 at 01:04; Status DC Nicardipine HCl 50 mg/Sodium Chloride 270 ml @ 32.4 mls/hr CONT PRN IV SEE I/ O RECORD Last administered on 01/27/18at 05:03; Start 01/24/18 at 03:00 Acetaminophen (Tylenol) 650 mg PRN Q6HRS PRN PEG MILD PAIN / TEMP; Start 01/24 at 03:15; Status Cancel Ondansetron HCl (Zofran) 4 mg PRN Q6HRS PRN IV NAUSEA/VOMITING, 1ST CHOICE Last administered on 01/26/18at 22:04; Start 01/24/18 at 03:15 Metoclopramide HCl (Reglan Vial) 5 mg PRN Q6HRS PRN IV NAUSEA/VOMITING, 3RD CHOICE Last administered on 01/25/18at 11:53; Start 01/24/18 at 03:15; Stop at 15:35; Status DC Prochlorperazine Edisylate (Compazine) 10 mg PRN Q6HRS PRN IV NAUSEA/VOMITING, 2ND CHOICE Last administered on 01/27/18at 06:31; Start 01/24/18 at 03:15 Pantoprazole Sodium (Protonix) 40 mg 1X ONCE PO Last administered on at 03:13; Start 01/24/18 at 03:30; Stop 01/24/18 at 03:31; Status DC Acetaminophen (Tylenol) 650 mg PRN Q6HRS PRN PO MIGRAINE HEADACHE Last administered on 01/27/18at 18:54; Start 01/24/18 at 03:15 Insulin Human Lispro (HumaLOG) 10 units 1X ONCE SQ Last administered on at 05:09; Start 01/24/18 at 05:00; Stop 01/24/18 at 05:02; Status DC Magnesium Sulfate/ Dextrose 100 ml @ 100 mls/hr 1X ONCE IV Last administered on 01/24/18at 12:01; Start 01/24/18 at 09:15; Stop 01/24/18 at 10:14; Status DC Metoprolol Tartrate (Lopressor Vial) 5 mg Q6HRS IVP Last administered on at 11:08; Start 01/24/18 at 11:00; Stop 01/25/18 at 11:41; Status DC Trimethobenzamide HCl (Tigan Im) 200 mg PRN Q6HRS PRN IM NAUSEA/VOMITING; Start 01/24/18 at 11:00 Morphine Sulfate (Morphine Sulfate) 2 mg PRN Q2HR PRN IV MODERATE PAIN; Start 01/24/18 at 11:00 Amlodipine Besylate (Norvasc) 5 mg DAILY PO Last administered on 01/30/18at 08: 16; Start 01/24/18 at 11:30 Clonidine HCl (Catapres) 0.2 mg BID PO Last administered on 01/30/18at 08:16; Start 01/24/18 at 11:30 Clopidogrel Bisulfate (Plavix) 75 mg DAILY PO Last administered on 01/30/18at 08:15; Start 01/24/18 at 11:30 Insulin Glargine (Lantus) 4 units DAILYWBKFT SQ ; Start 01/24/18 at 11:30; Stop 01/24/18 at 11:30; Status DC Insulin Glargine (Lantus) 4 units QHS SQ ; Start 01/24/18 at 21:00; Status UNV Carvedilol (Coreg) 25 mg BIDWMEALS PO Last administered on 01/30/18at 08:17; Start 01/24/18 at 17:00 Non-Formulary Medication (Hydrochlorothiazide (Hydrochlorothiazide Capsule ) ) 10 mg BID PO ; Start 01/24/18 at 21:00; Stop 01/24/18 at 21:00; Status DC Mycophenolate Mofetil (Cellcept) 250 mg BID PO Last administered on 01/24/18at 12:01; Start 01/24/18 at 12:00; Stop 01/24/18 at 15:58; Status DC Pantoprazole Sodium (Protonix) 40 mg DAILYAC PO ; Start 01/24/18 at 11:30; Stop 01/24/18 at 12:01; Status DC Tacrolimus (Prograf) 2 mg BID PO Last administered on 01/24/18at 12:02; Start 01/24/18 at 12:00; Stop 01/24/18 at 13:07; Status DC Insulin Glargine (Lantus) 4 units BID SQ Last administered on 01/29/18at 09:27 ; Start 01/24/18 at 11:30; Stop 01/29/18 at 11:29; Status DC Pantoprazole Sodium (PROTONIX VIAL for IV PUSH) 40 mg DAILYAC IVP Last administered on 01/25/18at 09:34; Start 01/24/18 at 13:00; Stop 01/25/18 at 15 :35; Status DC Tacrolimus (Prograf) 4 mg DAILY PO ; Start 01/25/18 at 09:00; Stop 01/25/18 at 09:00; Status DC Tacrolimus (Prograf) 3 mg QHS PO ; Start 01/24/18 at 21:00; Stop 01/24/18 at 21:00; Status DC Tacrolimus (Prograf) 2 mg DAILY SL Last administered on 01/27/18at 07:59; Start 01/25/18 at 09:00; Stop 01/27/18 at 17:15; Status DC Tacrolimus (Prograf) 1 mg QHS SL Last administered on 01/26/18at 21:33; Start 01/24/18 at 21:00; Stop 01/27/18 at 17:13; Status DC Sodium Chloride (Saline Mist Nasal) 1 bryan PRN Q1HR PRN NS NASAL CONGESTION; Start 01/24/18 at 15:00; Stop 01/24/18 at 17:28; Status DC Gabapentin (Neurontin) 100 mg TID PO Last administered on 01/30/18at 08:16; Start 01/24/18 at 16:00 Mycophenolate Mofetil 250 mg/ Dextrose 42 ml @ 21 mls/hr Q12H IV Last administered on 01/27/18at 09:33; Start 01/24/18 at 21:00; Stop 01/27/18 at 14 :11; Status DC Tacrolimus (Prograf) 0.5 mg QHS SL Last administered on 01/26/18at 21:33; Start 01/24/18 at 21:00; Stop 01/27/18 at 17:13; Status DC Sodium Chloride (Saline Mist Nasal) 1 bryan PRN Q1HR PRN NS NASAL CONGESTION; Start 01/24/18 at 17:30 Sodium Chloride 1,000 ml @ 75 mls/hr [id number] IV ; Start 01/25/18 at 07:30; Stop 01/27/18 at 15:58; Status DC Fentanyl Citrate (Fentanyl 2ml Vial) 50 mcg PRN Q3HRS PRN IV SEVERE PAIN Last administered on 01/26/18at 22:05; Start 01/25/18 at 09:15 Sodium Chloride 1,000 ml @ 75 mls/hr [id number] IV Last administered on at 09:35; Start 01/25/18 at 09:15; Stop 01/27/18 at 15:58; Status DC Metoprolol Tartrate (Lopressor Vial) 7.5 mg Q6HRS IVP ; Start 01/25/18 at 18:00 ; Stop 01/25/18 at 18:00; Status DC Clonidine HCl (Catapres Tts-3) 1 patch WEEKLY TD Last administered on at 14:02; Start 01/25/18 at 13:00 Labetalol HCl (Normodyne Iv Push) 20 mg PRN Q4HRS PRN IVP HYPERTENSION, SEE COMMENTS Last administered on 01/25/18at 14:05; Start 01/25/18 at 13:00 Ringer's Solution 1,000 ml @ 30 mls/hr Q24H IV ; Start 01/25/18 at 15:15; Status Cancel Propofol 20 ml @ As Directed STK-MED ONCE IV ; Start 01/25/18 at 15:07; Stop 01/25/18 at 15:08; Status DC Lidocaine HCl (Xylocaine-Mpf 1% 2ml Vial) 2 ml STK-MED ONCE .ROUTE ; Start at 15:07; Stop 01/25/18 at 15:08; Status DC Sodium Chloride 1,000 ml @ 0 mls/hr Q0M IV Last administered on 01/25/18at 15: 13; Start 01/25/18 at 15:15; Stop 01/25/18 at 15:43; Status DC Metoclopramide HCl (Reglan Vial) 5 mg Q6HRS IV Last administered on 01/28/18at 06:02; Start 01/25/18 at 18:00; Stop 01/28/18 at 09:59; Status DC Pantoprazole Sodium (PROTONIX VIAL for IV PUSH) 40 mg BIDAC IVP Last administered on 01/28/18at 08:59; Start 01/25/18 at 16:30; Stop 01/28/18 at 09 :59; Status DC Levofloxacin/ Dextrose 100 ml @ 100 mls/hr Q24H IV ; Start 01/26/18 at 08:30; Stop 01/26/18 at 09:32; Status DC Levalbuterol HCl (Xopenex) 1.25 mg PRN Q6HRS PRN NEB SHORTNESS OF BREATH Last administered on 01/27/18at 12:19; Start 01/26/18 at 08:45 Piperacillin Sod/ Tazobactam Sod (Zosyn Per Pharmacy) 1 each PRN DAILY PRN MC SEE COMMENTS; Start 01/26/18 at 10:00; Stop 01/28/18 at 10:56; Status DC Furosemide (Lasix) 40 mg DAILY IVP Last administered on 01/28/18at 08:59; Start 01/26/18 at 10:30 Piperacillin Sod/ Tazobactam Sod 3.375 gm/Sodium Chloride 50 ml @ 100 mls/hr Q6HRS IV Last administered on 01/28/18at 06:03; Start 01/26/18 at 11:00; Stop 01/28/18 at 10:46; Status DC Linezolid/Dextrose 300 ml @ 300 mls/hr Q12HR IV Last administered on at 20:11; Start 01/27/18 at 10:00; Stop 01/30/18 at 08:30; Status DC Mycophenolate Mofetil (Cellcept) 250 mg BID PO Last administered on 01/30/18at 08:15; Start 01/27/18 at 21:00 Tacrolimus (Prograf) 3 mg QHS PO Last administered on 01/29/18at 20:10; Start 01/27/18 at 21:00; Stop 01/30/18 at 05:04; Status DC Tacrolimus (Prograf) 4 mg DAILY PO Last administered on 01/30/18at 08:18; Start 01/28/18 at 09:00; Stop 01/30/18 at 12:00; Status DC Doxycycline Hyclate (Vibra-Tab) 100 mg BID PO Last administered on 01/28/18at 09:06; Start 01/28/18 at 09:00; Stop 01/28/18 at 10:52; Status DC Metoclopramide HCl (Reglan Vial) 5 mg QIDACHS IV ; Start 01/28/18 at 11:30; Stop 01/28/18 at 11:30; Status DC Pantoprazole Sodium (Protonix) 40 mg BIDAC PO Last administered on 01/30/18at 08:15; Start 01/28/18 at 10:30 Metoclopramide HCl (Reglan Oral Solution) 5 mg QIDACHS PO Last administered on 01/30/18at 11:40; Start 01/28/18 at 11:30 Cefepime HCl 1 gm/ Dextrose 50 ml @ 100 mls/hr DAILY IV ; Start 01/29/18 at 09 :00; Status UNV Cefepime HCl (Maxipime) 1 gm DAILY IVP Last administered on 01/30/18at 08:17; Start 01/28/18 at 12:00 Insulin Human Lispro (HumaLOG) 20 units 1X ONCE SQ Last administered on at 04:39; Start 01/29/18 at 05:00; Stop 01/29/18 at 05:01; Status DC Insulin Glargine (Lantus) 20 units TID SQ ; Start 01/29/18 at 14:00; Stop at 14:00; Status DC Insulin Human Lispro (HumaLOG) 10 units TIDAC SQ Last administered on at 12:24; Start 01/29/18 at 11:30; Stop 01/29/18 at 17:48; Status DC Insulin Glargine (Lantus) 20 units QHS SQ Last administered on 01/29/18at 21:54 ; Start 01/29/18 at 21:00 Docusate Sodium (Colace) 100 mg PRN DAILY PRN PO HARD STOOLS Last administered on 01/30/18at 08:16; Start 01/29/18 at 11:45 Polyethylene Glycol (miraLAX PACKET) 17 gm PRN DAILY PRN PO CONSTIPATION Last administered on 01/30/18at 08:20; Start 01/29/18 at 11:45 Insulin Human Lispro (HumaLOG) 6 units TIDAC SQ Last administered on at 11:47; Start 01/30/18 at 07:30 Tacrolimus (Prograf) 3 mg QHS PO ; Start 01/30/18 at 21:00 Tacrolimus (Prograf) 4 mg DAILY PO ; Start 01/31/18 at 09:00 Active Scripts Active Oxycodone-Acetaminophen 5-325 (Oxycodone Hcl/Acetaminophen) 1 Each Tablet 1 Tab PO PRN Q4HRS PRN Reported Prograf (Tacrolimus) 1 Mg Capsule 3 Cap PO QHS Prograf (Tacrolimus) 1 Mg Capsule 4 Cap PO DAILY Lantus Solostar (Insulin Glargine,Hum.rec.anlog) 100 Unit/1 Ml Insuln.pen 4 Unit SQ DAILYWBKFT Lantus Solostar (Insulin Glargine,Hum.rec.anlog) 100 Unit/1 Ml Insuln.pen 4 Unit SQ QHS Amlodipine Besylate 5 Mg Tablet 5 Mg PO DAILY Clonidine Hcl 0.2 Mg Tablet 1 Tab PO BID Clopidogrel (Clopidogrel Bisulfate) 75 Mg Tablet 1 Tab PO DAILY Cellcept (Mycophenolate Mofetil) 250 Mg Capsule 1 Cap PO BID Pantoprazole Sodium 20 Mg Tablet.dr 20 Mg PO DAILY Hydrochlorothiazide Capsule (Hydrochlorothiazide) 12.5 Mg Capsule 10 Mg PO BID Carvedilol 25 Mg Tablet 2 Tab PO DAILYBFRSUP Vitals/I & O Vital Sign - Last 24 Hours 01/29/18 01/29/18 01/29/18 01/29/18 15:00 17:14 19:56 20:00 Temp 99.0 98.8 99.0 98.8 Pulse 84 86 88 Resp 20 16 B/P (MAP) 153/67 (95) 159/79 150/69 (96) Pulse Ox 99 98 O2 Delivery Nasal Cannula Nasal Cannula Nasal Cannula O2 Flow Rate 3.0 4.0 4.0 01/29/18 01/29/18 01/30/18 01/30/18 20:10 23:00 03:51 07:00 Temp 98.8 98.9 98.7 98.8 98.9 98.7 Pulse 88 86 87 93 Resp 16 16 16 B/P (MAP) 150/69 159/58 (91) 169/67 (101) 186/60 (102) Pulse Ox 100 100 100 O2 Delivery Nasal Cannula Nasal Cannula Nasal Cannula O2 Flow Rate 4.0 4.0 4.0 01/30/18 01/30/18 01/30/18 01/30/18 08:00 08:16 08:16 08:17 Pulse 93 93 93 B/P (MAP) 186/60 186/60 186/60 O2 Delivery Nasal Cannula O2 Flow Rate 4.0 01/30/18 11:00 Temp 99.1 99.1 Pulse 83 Resp 16 B/P (MAP) 163/62 (95) Pulse Ox 100 O2 Delivery Nasal Cannula O2 Flow Rate 4.0 Intake and Output 01/29/18 01/29/18 01/30/18 15:00 23:00 07:00 Intake Total 290 ml 450 ml Output Total 250 ml 350 ml Balance 290 ml -250 ml 100 ml NYASIA SHEPPARD III DO Jan 30, 2018 13:15
[2018-01-30] MEDS ORDERED: POTASSIUM CHLORIDE 20 MEQ TABLET.ER. PO ONE (13:30)
--- NOTE | 2018-01-30 13:46 | RAD ---
CT CHEST WO CONTRAST Indication: H/O PNA VS CHF NO CONTRAST NO PREV Exposure: One or more of the following individualized dose reduction techniques were utilized for this examination: 1. Automated exposure control 2. Adjustment of the mA and/or kV according to patient size 3. Use of iterative reconstruction technique. Comparison: None are available. Contrast: None FINDINGS: Vascular structures: Limited exam without contrast. No evidence of thoracic aortic aneurysm. Lymph nodes: Small mediastinal lymph nodes are identified. No pathologic lymph node enlargement. Thyroid gland:Visualized aspect is unremarkable. Heart: Coronary artery calcifications. Esophagus: Mild wall thickening particularly at the distal aspect. Pleural spaces: Small left pleural effusion. Trace right pleural effusion. Lungs: Consolidated infiltrate in both lung bases, left greater than right. There are bronchograms. There is milder mixed interstitial and alveolar infiltrate in the left upper lobe. This is a dominant central location. Several small groundglass nodules are identified in the right lower lobe, largest measures 6 mm on image 27, series 3. Trachea and central airways: Patent Spine: Degenerative spondylosis, mild. Bones: No destructive process is identified. Upper abdomen: Slices obtained through the upper most abdomen are limited by the noncontrast technique. The partially visualized kidneys are extremely small and atrophic in appearance. Renal arterial vascular calcifications are seen. The upper abdominal bowel loops are distended with fluid and gas. Impression: 1. Consolidating infiltrates in both lungs, greatest in the left lower lobe, likely due to pneumonia or other inflammatory process. 2. There are several small groundglass nodules in the right lower lobe, may be related to the above process, could also be monitored with short-term follow-up CT. 3. Pleural effusions, left greater than right. 4. Distention of the upper abdominal bowel loops, correlate for symptoms of ileus or obstruction. 5. Partially visualized kidneys are very small and atrophic. Electronically signed by: Fahad Portillo MD (01/30/2018 1:43 PM) [facility]
[2018-01-30 14:40] VITALS: BP 147/70
[2018-01-30 19:37] VITALS: BP 185/59
[2018-01-30] MEDS: TACROLIMUS 0.5 MG CAPSULE PO SCH (19:59)
[2018-01-30] MEDS: INSULIN GLARGINE 300 UNITS/3 ML INSULN.PEN. SQ SCH (21:00)
[2018-01-30 23:00] VITALS: BP 185/59
[2018-01-31] VITALS (7 sets, daily range): BP systolic 142–193; BP diastolic 63–81
[2018-01-31 04:38] LABS: BASO % 0 % (0-3); EOS # 0.1 x10^3/uL (0.0-0.7); EOS % 3 % (0-3); LYMPH # 1.1 x10^3/uL (1.0-4.8); LYMPH % 21 % (24-48); MEAN CORPUSCULAR HEMOGLOBIN 31 pg (25-35); MEAN CORPUSCULAR HGB CONC 35 g/dL (31-37); MEAN CORPUSCULAR VOLUME 87 fL (79-100); MONO # 0.5 x10^3/uL (0.0-1.1); MONO % 11 % (0-9); NEUT # 3.4 x10^3uL (1.8-7.7); NEUT % 66 % (31-73); PLATELET COUNT 328 x10^3/uL (140-400); RED CELL DISTRIBUTION WIDTH 13.1 % (11.5-14.5); WHITE BLOOD COUNT 5.2 x10^3/uL (4.0-11.0)
[2018-01-31 04:48] LABS: CALCIUM 8.6 mg/dL (8.5-10.1); CREATININE 3.6 mg/dL (0.7-1.3)
[2018-01-31] MEDS: LABETALOL 20 MG/4 ML DISP.SYRIN. IVP PRN (05:07)
[2018-01-31] MEDS: INSULIN LISPRO 300 UNITS/3 ML INSULN.PEN. SQ SCH ×6 (07:30→17:00)
[2018-01-31] MEDS: METOCLOPRAMIDE ORAL SOLN 10 MG/10 ML SOLUTION. PO SCH ×4 (08:51→21:11)
[2018-01-31] MEDS: CEFEPIME HCL IV Push 1 GM VIAL. IVP SCH (08:51)
[2018-01-31] MEDS: TACROLIMUS 0.5 MG CAPSULE PO SCH ×2 (08:52→21:11)
[2018-01-31] MEDS: MYCOPHENOLATE MOFETIL 250 MG CAPSULE. PO SCH ×2 (08:52→21:11)
[2018-01-31] MEDS: CARVEDILOL 12.5 MG TABLET. PO SCH ×2 (08:52→17:39)
[2018-01-31] MEDS: CLOPIDOGREL BISULFATE 75 MG TABLET PO SCH (08:52)
[2018-01-31] MEDS: GABAPENTIN 100 MG CAPSULE. PO SCH ×3 (08:52→21:11)
[2018-01-31] MEDS: PANTOPRAZOLE 40 MG TABLET.DR. PO SCH ×2 (08:52→17:38)
[2018-01-31] MEDS: amLODIPine BESYLATE 5 MG TABLET PO SCH (08:53)
[2018-01-31] MEDS: cloNIDine HCL 0.2 MG TABLET PO SCH ×2 (08:53→21:16)
[2018-01-31] MEDS: FUROSEMIDE 40 MG/4 ML VIAL. IVP SCH (08:54)
[2018-01-31] MEDS ORDERED: DARBEPOETIN ALFA 100 MCG/0.5 ML DISP.SYRIN. SQ ONE (09:00)
--- NOTE | 2018-01-31 09:00 | PDOC ---
Subjective: Subjective: Eating without issue. Says stooled just a little so he's going to take Mag Citrate today. Objective: Vital Signs: Vital Signs Date Time Temp Pulse Resp B/P (MAP) Pulse Ox O2 Delivery O2 Flow Rate FiO2 01/31/18 08:53 87 152/80 01/31/18 03:00 99.3 99 Nasal Cannula 99.3 01/31/18 00:49 2.0 01/30/18 19:37 18 Labs: Laboratory Tests Test 01/30/18 09:05 01/30/18 11:23 01/30/18 16:22 01/30/18 16:48 White Blood Count 5.9 x10^3/uL Red Blood Count 2.56 x10^6/uL Hemoglobin 7.9 g/dL Hematocrit 22.4 % Mean Corpuscular Volume 88 fL Mean Corpuscular Hemoglobin 31 pg Mean Corpuscular Hemoglobin Concent 35 g/dL Red Cell Distribution Width 13.2 % Platelet Count 327 x10^3/uL Neutrophils (%) (Auto) 77 % Lymphocytes (%) (Auto) 13 % Monocytes (%) (Auto) 8 % Eosinophils (%) (Auto) 2 % Basophils (%) (Auto) 0 % Neutrophils # (Auto) 4.5 x10^3uL Lymphocytes # (Auto) 0.8 x10^3/uL Monocytes # (Auto) 0.5 x10^3/uL Eosinophils # (Auto) 0.1 x10^3/uL Basophils # (Auto) 0.0 x10^3/uL Sodium Level 136 mmol/L Potassium Level 3.2 mmol/L Chloride Level 103 mmol/L Carbon Dioxide Level 21 mmol/L Anion Gap 12 Blood Urea Nitrogen 45 mg/dL Creatinine 4.4 mg/dL Estimated GFR (Cockcroft-Gault) 14.3 Glucose Level 301 mg/dL Calcium Level 8.8 mg/dL Glucose (Fingerstick) 197 mg/dL 47 mg/dL 86 mg/dL Test 01/30/18 20:27 01/30/18 23:27 01/31/18 03:40 01/31/18 07:58 Glucose (Fingerstick) 159 mg/dL 259 mg/dL 139 mg/dL White Blood Count 5.2 x10^3/uL Red Blood Count 2.30 x10^6/uL Hemoglobin 7.0 g/dL Hematocrit 20.0 % Mean Corpuscular Volume 87 fL Mean Corpuscular Hemoglobin 31 pg Mean Corpuscular Hemoglobin Concent 35 g/dL Red Cell Distribution Width 13.1 % Platelet Count 328 x10^3/uL Neutrophils (%) (Auto) 66 % Lymphocytes (%) (Auto) 21 % Monocytes (%) (Auto) 11 % Eosinophils (%) (Auto) 3 % Basophils (%) (Auto) 0 % Neutrophils # (Auto) 3.4 x10^3uL Lymphocytes # (Auto) 1.1 x10^3/uL Monocytes # (Auto) 0.5 x10^3/uL Eosinophils # (Auto) 0.1 x10^3/uL Basophils # (Auto) 0.0 x10^3/uL Sodium Level 139 mmol/L Potassium Level 4.0 mmol/L Chloride Level 106 mmol/L Carbon Dioxide Level 22 mmol/L Anion Gap 11 Blood Urea Nitrogen 41 mg/dL Creatinine 3.6 mg/dL Estimated GFR (Cockcroft-Gault) 18.0 Glucose Level 217 mg/dL Calcium Level 8.6 mg/dL PE: GEN: NAD, eating breakfast enthusiastically LUNGS: CTAB HEART: RRR ABD: S/ND/NT NEURO/PSYCH: A & O 3 A/P: Probable gastroparesis - n/v resolved, tolerating PO Constipation Anemia - multi-factorial, Hgb to 7, followed by hematology -- Continue metoclopramide and pantoprazole, await response to Mag Citrate. ELIOT LAMB Jan 31, 2018 09:00
--- NOTE | 2018-01-31 09:51 | PDOC ---
Infectious Disease Note Subjective Subjective Feeling weak for which he attributes to lying in bed Off BiPAP Denies MARTÍNEZ/F/C/S/N/V/D ROS ROS per HPI otherwise neg Vital Sign Vital Signs Vital Signs Date Time Temp Pulse Resp B/P (MAP) Pulse Ox O2 Delivery O2 Flow Rate FiO2 01/31/18 08:53 87 152/80 01/31/18 03:00 99.3 99 Nasal Cannula 99.3 01/31/18 00:49 2.0 01/30/18 19:37 18 Physical Exam PHYSICAL EXAM GENERAL: Propped up in bed, putting prosthesis on HEENT: Left eye prosthesis. Oral cavity, pharynx pink, dry. No lesions seen. NECK: Supple. LUNGS: Decreased aeration bases, nonlabored HEART: S1 and S2. ABDOMEN: Bowel sounds active. Soft, nontender. : Whitley in place with clear urine EXTREMITIES: [id number] amputation bilaterally. No cyanosis. SKIN: Warm, without rash. NEUROLOGIC: Alert and oriented x 3. PIV ok Labs Lab Laboratory Tests Test 01/30/18 11:23 01/30/18 16:22 01/30/18 16:48 01/30/18 20:27 Glucose (Fingerstick) 197 mg/dL (70-99) 47 mg/dL (70-99) 86 mg/dL (70-99) 159 mg/dL (70-99) Test 01/30/18 23:27 01/31/18 03:40 01/31/18 07:58 Glucose (Fingerstick) 259 mg/dL (70-99) 139 mg/dL (70-99) White Blood Count 5.2 x10^3/uL (4.0-11.0) Red Blood Count 2.30 x10^6/uL (4.30-5.70) Hemoglobin 7.0 g/dL (13.0-17.5) Hematocrit 20.0 % (39.0-53.0) Mean Corpuscular Volume 87 fL (79-100) Mean Corpuscular Hemoglobin 31 pg (25-35) Mean Corpuscular Hemoglobin Concent 35 g/dL (31-37) Red Cell Distribution Width 13.1 % (11.5-14.5) Platelet Count 328 x10^3/uL (140-400) Neutrophils (%) (Auto) 66 % (31-73) Lymphocytes (%) (Auto) 21 % (24-48) Monocytes (%) (Auto) 11 % (0-9) Eosinophils (%) (Auto) 3 % (0-3) Basophils (%) (Auto) 0 % (0-3) Neutrophils # (Auto) 3.4 x10^3uL (1.8-7.7) Lymphocytes # (Auto) 1.1 x10^3/uL (1.0-4.8) Monocytes # (Auto) 0.5 x10^3/uL (0.0-1.1) Eosinophils # (Auto) 0.1 x10^3/uL (0.0-0.7) Basophils # (Auto) 0.0 x10^3/uL (0.0-0.2) Sodium Level 139 mmol/L (136-145) Potassium Level 4.0 mmol/L (3.5-5.1) Chloride Level 106 mmol/L (98-107) Carbon Dioxide Level 22 mmol/L (21-32) Anion Gap 11 (6-14) Blood Urea Nitrogen 41 mg/dL (8-26) Creatinine 3.6 mg/dL (0.7-1.3) Estimated GFR (Cockcroft-Gault) 18.0 Glucose Level 217 mg/dL (70-99) Calcium Level 8.6 mg/dL (8.5-10.1) Chest CT: Impression: 1. Consolidating infiltrates in both lungs, greatest in the left lower lobe, likely due to pneumonia or other inflammatory process. 2. There are several small groundglass nodules in the right lower lobe, may be related to the above process, could also be monitored with short-term follow-up CT. 3. Pleural effusions, left greater than right. 4. Distention of the upper abdominal bowel loops, correlate for symptoms of ileus or obstruction. 5. Partially visualized kidneys are very small and atrophic. Micro Objective Assessment Acute respiratory failure with LLL infiltrate. flu screen neg, mycoplasma neg, sputum poor quality, clinically improving Fever - Resolved. cultures neg Pyuria UC neg Chronic immunosuppression. h/o renal transplant 2007 Allergy PCN/amoxicillin - rash. Tolerated Zosyn w/o problems Acute hypoxic respiratory failure - venti mask 50% FiO2 -Influenza screen neg Acute on chronic CHF ESRD s/p renal transplant. now worsening creat Accelerated hypertension. PVD. h/o BKA bilat DM type I (since age 14 months) Plan Plan of Care Empiric cefepime, renal dosing - states he is feeling better Previously on Zyvox and Zosyn f/u crypto ag ,EBV and CMV serologies though suspicion is low for these infections Supportive care D/W RN Attending Co-Sign Attending Co-Sign The patient was seen and interviewed as well as examined at the bedside. The chart was reviewed. The case was discussed. Agree with the plan of care. SHIVA MEANS APRN Jan 31, 2018 09:51 MADYSON PRADO MD Jan 31, 2018 13:43
--- NOTE | 2018-01-31 09:55 | PDOC ---
SUBJECTIVE ROS No new concerns , stable On O2 [address] OBJECTIVE Vital Signs Vital Signs Date Time Temp Pulse Resp B/P (MAP) Pulse Ox O2 Delivery O2 Flow Rate FiO2 01/31/18 08:53 87 152/80 01/31/18 03:00 99.3 99 Nasal Cannula 99.3 01/31/18 00:49 2.0 01/30/18 19:37 18 I & 0 Intake and Output 01/31/18 07:00 Intake Total 1560 ml Output Total 1376 ml Balance 184 ml Intake Oral 760 ml Other 800 ml Output Urine Total 1375 ml Stool Total 1 ml PHYSICAL EXAM Physical Exam Gen- NAD HEENT: OM moist, On O2 by CT Neck No JVD LUNGS: upper rhonchi) Heart: S1S2, RRR Abdomen: Soft N/T, No graft tenderness , No Bruit Extremities: (bilateral BKA, No Edema Neurology: alert, oriented, follow commands - Whitley + DIAGNOSIS/ASSESSMENT Assessment & Plan JAMAL - Etiology initially Dehydration sec to N/V Worsening renal function - ?ATN now sec to Infection-UTI/Pneumonia Improving renal function No Uremic symptoms or signs currently no emergent indication for [employer] Renal US and Duplex - normal No Micr hematuria , UA cw UTI E-Lytes stable, ? UTI, ID following , On ABx Anemia- Hgb has been dropping , stable now Admission Hgb may be high due to hemonc Hem consulted Hx of Renal Tx 2007 - Continue Immunosuppression Prograf level 3.6 CKD STAGE 3 - Baseline Creat 1.5 Used to go to [facility], hasn't seen Renal as OP for many years as no insurance He was scheduled to see Dr. Nguyen at [facility] in past but was Hospitalized Nausea/Vomiting- None S/P EGD with esophagitis with possible gastroparesis. Per GI Ac Resp failure Pulm on board- Recd IV Lasix, Acute respiratory failure. Abnormal cxr 01/27 with bilateral infiltrates, suspect pneumonia, suspect gram negative/ ? CHF CT scan chest done DM II HTN- Better Cardiology managing Discussed with Pt , RN and Pulm Ct scan abdomen 01/24 without Contrast 1. Severely atrophic and scarred bilateral kidneys. 2. Atrophic and scarred renal transplant in the right iliac fossa. 3. Mild perinephric edema related to a left iliac fossa renal transplant. 4. Borderline prostatic enlargement with distention of the urinary bladder. 5. Gastric distention with fluid. 6. Left basilar pulmonary infiltrates suggesting pneumonia Renal US - 01/27- No Hydronephrosis . CT chest-- 01/30 Impression: 1. Consolidating infiltrates in both lungs, greatest in the left lower lobe, likely due to pneumonia or other inflammatory process. 2. There are several small groundglass nodules in the right lower lobe, may be related to the above process, could also be monitored with short-term follow-up CT. 3. Pleural effusions, left greater than right. 4. Distention of the upper abdominal bowel loops, correlate for symptoms of ileus or obstruction. 5. Partially visualized kidneys are very small and atrophic. COMMENT/RELEVANT DATA Meds Current Medications Medications (Trade) Dose Ordered Sig/Penelope Start Time Stop Time Status Last Admin Dose Admin Acetaminophen (Tylenol) 650 mg PRN Q6HRS PRN 01/24/18 03:15 01/27/18 18:54 650 MG Amlodipine Besylate (Norvasc) 5 mg DAILY 01/24/18 11:30 01/31/18 08:53 5 MG Bisacodyl (Dulcolax Supp) 10 mg PRN DAILY PRN 01/30/18 13:15 Carvedilol (Coreg) 25 mg BIDWMEALS 01/24/18 17:00 01/31/18 08:52 25 MG Cefepime HCl (Maxipime) 1 gm DAILY 01/28/18 12:00 01/31/18 08:51 1 GM Cefepime HCl 1 gm/ Dextrose 50 ml @ 100 mls/hr DAILY 01/29/18 09:00 UNV Clonidine HCl (Catapres Tts-3) 1 patch WEEKLY 01/25/18 13:00 01/25/18 14:02 1 PATCH Clonidine HCl (Catapres) 0.2 mg BID 01/24/18 11:30 01/31/18 08:53 0.2 MG Clopidogrel Bisulfate (Plavix) 75 mg DAILY 01/24/18 11:30 01/31/18 08:52 75 MG Darbepoetin Jd (Aranesp) 100 mcg 1X ONCE 01/31/18 09:00 01/31/18 09:01 DC Dextrose (Dextrose 50%-Water Syringe) 12.5 gm PRN Q15MIN PRN 01/23/18 23:00 01/29/18 16:45 12.5 GM Diphenhydramine HCl (Benadryl) 25 mg 1X ONCE 01/23/18 19:15 01/23/18 19:17 DC 01/23/18 19:25 25 MG Docusate Sodium (Colace) 100 mg PRN DAILY PRN 01/29/18 11:45 01/30/18 08:16 100 MG Doxycycline Hyclate (Vibra-Tab) 100 mg BID 01/28/18 09:00 01/28/18 10:52 DC 01/28/18 09:06 100 MG Fentanyl Citrate (Fentanyl 2ml Vial) 50 mcg PRN Q3HRS PRN 01/25/18 09:15 01/26/18 22:05 50 MCG Furosemide (Lasix) 40 mg DAILY 01/26/18 10:30 01/28/18 08:59 40 MG Gabapentin (Neurontin) 100 mg TID 01/24/18 16:00 01/31/18 08:52 100 MG Insulin Glargine (Lantus) 20 units QHS 01/29/18 21:00 01/30/18 21:00 20 UNITS Insulin Human Lispro (HumaLOG) 6 units TIDAC 01/30/18 07:30 01/30/18 11:47 6 UNITS Insulin Human Regular (HumuLIN R VIAL) 5 unit 1X ONCE 01/23/18 19:45 01/23/18 19:46 DC 01/23/18 19:55 5 UNIT Labetalol HCl (Normodyne Iv Push) 20 mg PRN Q4HRS PRN 01/25/18 13:00 01/31/18 05:07 20 MG Levalbuterol HCl (Xopenex) 1.25 mg PRN Q6HRS PRN 01/26/18 08:45 01/27/18 12:19 1.25 MG Levofloxacin/ Dextrose 100 ml @ 100 mls/hr Q24H 01/26/18 08:30 01/26/18 09:32 DC Lidocaine HCl (Xylocaine-Mpf 1% 2ml Vial) 2 ml STK-MED ONCE 01/25/18 15:07 01/25/18 15:08 DC Linezolid/Dextrose 300 ml @ 300 mls/hr Q12HR 01/27/18 10:00 01/30/18 08:30 DC 01/29/18 20:11 300 MLS/HR Magnesium Citrate (Citroma) 296 ml PRN 1X PRN 01/30/18 13:15 Magnesium Sulfate/ Dextrose 100 ml @ 100 mls/hr 1X ONCE 01/24/18 09:15 01/24/18 10:14 DC 01/24/18 12:01 100 MLS/HR Metoclopramide HCl (Reglan Oral Solution) 5 mg QIDACHS 01/28/18 11:30 01/31/18 08:51 5 MG Metoclopramide HCl (Reglan Vial) 5 mg QIDACHS 01/28/18 11:30 01/28/18 11:30 DC Metoprolol Tartrate (Lopressor Vial) 7.5 mg Q6HRS 01/25/18 18:00 01/25/18 18:00 DC Morphine Sulfate (Morphine Sulfate) 2 mg PRN Q2HR PRN 01/24/18 11:00 Mycophenolate Mofetil (Cellcept) 250 mg BID 01/27/18 21:00 01/31/18 08:52 250 MG Mycophenolate Mofetil 250 mg/ Dextrose 42 ml @ 21 mls/hr Q12H 01/24/18 21:00 01/27/18 14:11 DC 01/27/18 09:33 21 MLS/HR Nicardipine HCl 50 mg/Sodium Chloride 270 ml @ 32.4 mls/hr CONT PRN 01/24/18 03:00 01/27/18 05:03 27 MLS/HR Non-Formulary Medication (Hydrochlorothiazide (Hydrochlorothiazide Capsule )) 10 mg BID 01/24/18 21:00 01/24/18 21:00 DC Ondansetron HCl (Zofran) 4 mg PRN Q6HRS PRN 01/24/18 03:15 01/26/18 22:04 4 MG Oxycodone/ Acetaminophen (Percocet 5/325) 1 tab PRN Q4HRS PRN 01/24/18 01:00 Pantoprazole Sodium (PROTONIX VIAL for IV PUSH) 40 mg BIDAC 01/25/18 16:30 01/28/18 09:59 DC 01/28/18 08:59 40 MG Pantoprazole Sodium (Protonix) 40 mg BIDAC 01/28/18 10:30 01/31/18 08:52 40 MG Piperacillin Sod/ Tazobactam Sod (Zosyn Per Pharmacy) 1 each PRN DAILY PRN 01/26/18 10:00 01/28/18 10:56 DC Piperacillin Sod/ Tazobactam Sod 3.375 gm/Sodium Chloride 50 ml @ 100 mls/hr Q6HRS 01/26/18 11:00 01/28/18 10:46 DC 01/28/18 06:03 100 MLS/HR Polyethylene Glycol (miraLAX PACKET) 17 gm PRN DAILY PRN 01/29/18 11:45 01/30/18 08:20 17 GM Potassium Chloride (Klor-Con) 40 meq 1X ONCE 01/30/18 13:30 01/30/18 13:31 DC 01/30/18 13:56 40 MEQ Prochlorperazine Edisylate (Compazine) 10 mg PRN Q6HRS PRN 01/24/18 03:15 01/27/18 06:31 10 MG Propofol 20 ml @ As Directed STK-MED ONCE 01/25/18 15:07 01/25/18 15:08 DC Ringer's Solution 1,000 ml @ 30 mls/hr Q24H 01/25/18 15:15 Cancel Sodium Chloride 1,000 ml @ 0 mls/hr Q0M 01/25/18 15:15 01/25/18 15:43 DC 01/25/18 15:13 50 MLS/HR Sodium Chloride (Saline Mist Nasal) 1 bryan PRN Q1HR PRN 01/24/18 17:30 Tacrolimus (Prograf) 4 mg DAILY 01/31/18 09:00 01/31/18 08:52 4 MG Trimethobenzamide HCl (Tigan Im) 200 mg PRN Q6HRS PRN 01/24/18 11:00 Lab Laboratory Tests Test 01/30/18 11:23 01/30/18 16:22 01/30/18 16:48 01/30/18 20:27 Glucose (Fingerstick) 197 mg/dL (70-99) 47 mg/dL (70-99) 86 mg/dL (70-99) 159 mg/dL (70-99) Test 01/30/18 23:27 01/31/18 03:40 01/31/18 07:58 Glucose (Fingerstick) 259 mg/dL (70-99) 139 mg/dL (70-99) White Blood Count 5.2 x10^3/uL (4.0-11.0) Red Blood Count 2.30 x10^6/uL (4.30-5.70) Hemoglobin 7.0 g/dL (13.0-17.5) Hematocrit 20.0 % (39.0-53.0) Mean Corpuscular Volume 87 fL (79-100) Mean Corpuscular Hemoglobin 31 pg (25-35) Mean Corpuscular Hemoglobin Concent 35 g/dL (31-37) Red Cell Distribution Width 13.1 % (11.5-14.5) Platelet Count 328 x10^3/uL (140-400) Neutrophils (%) (Auto) 66 % (31-73) Lymphocytes (%) (Auto) 21 % (24-48) Monocytes (%) (Auto) 11 % (0-9) Eosinophils (%) (Auto) 3 % (0-3) Basophils (%) (Auto) 0 % (0-3) Neutrophils # (Auto) 3.4 x10^3uL (1.8-7.7) Lymphocytes # (Auto) 1.1 x10^3/uL (1.0-4.8) Monocytes # (Auto) 0.5 x10^3/uL (0.0-1.1) Eosinophils # (Auto) 0.1 x10^3/uL (0.0-0.7) Basophils # (Auto) 0.0 x10^3/uL (0.0-0.2) Sodium Level 139 mmol/L (136-145) Potassium Level 4.0 mmol/L (3.5-5.1) Chloride Level 106 mmol/L (98-107) Carbon Dioxide Level 22 mmol/L (21-32) Anion Gap 11 (6-14) Blood Urea Nitrogen 41 mg/dL (8-26) Creatinine 3.6 mg/dL (0.7-1.3) Estimated GFR (Cockcroft-Gault) 18.0 Glucose Level 217 mg/dL (70-99) Calcium Level 8.6 mg/dL (8.5-10.1) Results All relevant outside records, renal labs, imaging studies, telemetry/EKG's were reviewed. BASSEM BUSBY MD Jan 31, 2018 09:55
--- NOTE | 2018-01-31 12:43 | PDOC ---
PROGRESS NOTES Subjective Subjective HPI -f/u of Anemia ROS - no dyspnea. no CP Objective Objective Vital Signs Date Time Temp Pulse Resp B/P (MAP) Pulse Ox O2 Delivery O2 Flow Rate FiO2 01/31/18 11:00 99.1 86 20 156/71 (99) 100 Nasal Cannula 3.0 99.1 Intake and Output 01/31/18 07:00 Intake Total 1560 ml Output Total 1376 ml Balance 184 ml Intake Oral 760 ml Other 800 ml Output Urine Total 1375 ml Stool Total 1 ml Physical Exam Heart: Normal S1, Normal S2 General: Alert, Oriented X3 Lungs: Clear to auscultation Neuro: Normal speech Psych/Mental Status: Mental status NL Assessment Assessment Problems Medical Problems: (1) Hypertensive urgency Status: Acute (2) Intractable nausea and vomiting Status: Acute (3) Migraine headache Status: Acute IMPRESSION AND PLAN: 1. Anemia, progressively worse. This is multifactorial including underlying chronic kidney disease, worsening renal failure, pneumonia, congestive heart failure, antibiotics. His reticulocyte count is normal at 1.7 and hence I do not suspect hemolysis. There is no evidence of bleeding. I would continue to monitor hemoglobin and transfuse if the hemoglobin drops to below 7. Hb stable at 7.4 on 01/29/18. Hb better at 7.9 on 01/30/18 Hb worse at 7.0 on 01/31/18, ordered aranesp 100 mcg 01/31/18. Monitor cbc 2. Chronic kidney disease with worsening renal failure. Appreciate Nephrology consultation. The patient has a renal transplant in 2007 and he is on CellCept and Prograf. 3. Pneumonia. Appreciate ID and Pulmonary consultation. Comment Review of Relevant I have reviewed the following items nadiya (where applicable) has been applied. Labs Laboratory Tests Test 01/29/18 16:32 01/29/18 16:48 01/29/18 20:30 01/30/18 01:07 Glucose (Fingerstick) 40 mg/dL (70-99) 110 mg/dL (70-99) 167 mg/dL (70-99) 273 mg/dL (70-99) Test 01/30/18 07:07 01/30/18 09:05 01/30/18 11:23 01/30/18 16:22 Glucose (Fingerstick) 277 mg/dL (70-99) 197 mg/dL (70-99) 47 mg/dL (70-99) White Blood Count 5.9 x10^3/uL (4.0-11.0) Red Blood Count 2.56 x10^6/uL (4.30-5.70) Hemoglobin 7.9 g/dL (13.0-17.5) Hematocrit 22.4 % (39.0-53.0) Mean Corpuscular Volume 88 fL (79-100) Mean Corpuscular Hemoglobin 31 pg (25-35) Mean Corpuscular Hemoglobin Concent 35 g/dL (31-37) Red Cell Distribution Width 13.2 % (11.5-14.5) Platelet Count 327 x10^3/uL (140-400) Neutrophils (%) (Auto) 77 % (31-73) Lymphocytes (%) (Auto) 13 % (24-48) Monocytes (%) (Auto) 8 % (0-9) Eosinophils (%) (Auto) 2 % (0-3) Basophils (%) (Auto) 0 % (0-3) Neutrophils # (Auto) 4.5 x10^3uL (1.8-7.7) Lymphocytes # (Auto) 0.8 x10^3/uL (1.0-4.8) Monocytes # (Auto) 0.5 x10^3/uL (0.0-1.1) Eosinophils # (Auto) 0.1 x10^3/uL (0.0-0.7) Basophils # (Auto) 0.0 x10^3/uL (0.0-0.2) Sodium Level 136 mmol/L (136-145) Potassium Level 3.2 mmol/L (3.5-5.1) Chloride Level 103 mmol/L (98-107) Carbon Dioxide Level 21 mmol/L (21-32) Anion Gap 12 (6-14) Blood Urea Nitrogen 45 mg/dL (8-26) Creatinine 4.4 mg/dL (0.7-1.3) Estimated GFR (Cockcroft-Gault) 14.3 Glucose Level 301 mg/dL (70-99) Calcium Level 8.8 mg/dL (8.5-10.1) Test 01/30/18 16:48 01/30/18 20:27 01/30/18 23:27 01/31/18 03:40 Glucose (Fingerstick) 86 mg/dL (70-99) 159 mg/dL (70-99) 259 mg/dL (70-99) White Blood Count 5.2 x10^3/uL (4.0-11.0) Red Blood Count 2.30 x10^6/uL (4.30-5.70) Hemoglobin 7.0 g/dL (13.0-17.5) Hematocrit 20.0 % (39.0-53.0) Mean Corpuscular Volume 87 fL (79-100) Mean Corpuscular Hemoglobin 31 pg (25-35) Mean Corpuscular Hemoglobin Concent 35 g/dL (31-37) Red Cell Distribution Width 13.1 % (11.5-14.5) Platelet Count 328 x10^3/uL (140-400) Neutrophils (%) (Auto) 66 % (31-73) Lymphocytes (%) (Auto) 21 % (24-48) Monocytes (%) (Auto) 11 % (0-9) Eosinophils (%) (Auto) 3 % (0-3) Basophils (%) (Auto) 0 % (0-3) Neutrophils # (Auto) 3.4 x10^3uL (1.8-7.7) Lymphocytes # (Auto) 1.1 x10^3/uL (1.0-4.8) Monocytes # (Auto) 0.5 x10^3/uL (0.0-1.1) Eosinophils # (Auto) 0.1 x10^3/uL (0.0-0.7) Basophils # (Auto) 0.0 x10^3/uL (0.0-0.2) Sodium Level 139 mmol/L (136-145) Potassium Level 4.0 mmol/L (3.5-5.1) Chloride Level 106 mmol/L (98-107) Carbon Dioxide Level 22 mmol/L (21-32) Anion Gap 11 (6-14) Blood Urea Nitrogen 41 mg/dL (8-26) Creatinine 3.6 mg/dL (0.7-1.3) Estimated GFR (Cockcroft-Gault) 18.0 Glucose Level 217 mg/dL (70-99) Calcium Level 8.6 mg/dL (8.5-10.1) Test 01/31/18 07:58 01/31/18 11:57 Glucose (Fingerstick) 139 mg/dL (70-99) 185 mg/dL (70-99) Laboratory Tests Test 01/30/18 16:22 01/30/18 16:48 01/30/18 20:27 01/30/18 23:27 Glucose (Fingerstick) 47 mg/dL (70-99) 86 mg/dL (70-99) 159 mg/dL (70-99) 259 mg/dL (70-99) Test 01/31/18 03:40 01/31/18 07:58 01/31/18 11:57 White Blood Count 5.2 x10^3/uL (4.0-11.0) Red Blood Count 2.30 x10^6/uL (4.30-5.70) Hemoglobin 7.0 g/dL (13.0-17.5) Hematocrit 20.0 % (39.0-53.0) Mean Corpuscular Volume 87 fL (79-100) Mean Corpuscular Hemoglobin 31 pg (25-35) Mean Corpuscular Hemoglobin Concent 35 g/dL (31-37) Red Cell Distribution Width 13.1 % (11.5-14.5) Platelet Count 328 x10^3/uL (140-400) Neutrophils (%) (Auto) 66 % (31-73) Lymphocytes (%) (Auto) 21 % (24-48) Monocytes (%) (Auto) 11 % (0-9) Eosinophils (%) (Auto) 3 % (0-3) Basophils (%) (Auto) 0 % (0-3) Neutrophils # (Auto) 3.4 x10^3uL (1.8-7.7) Lymphocytes # (Auto) 1.1 x10^3/uL (1.0-4.8) Monocytes # (Auto) 0.5 x10^3/uL (0.0-1.1) Eosinophils # (Auto) 0.1 x10^3/uL (0.0-0.7) Basophils # (Auto) 0.0 x10^3/uL (0.0-0.2) Sodium Level 139 mmol/L (136-145) Potassium Level 4.0 mmol/L (3.5-5.1) Chloride Level 106 mmol/L (98-107) Carbon Dioxide Level 22 mmol/L (21-32) Anion Gap 11 (6-14) Blood Urea Nitrogen 41 mg/dL (8-26) Creatinine 3.6 mg/dL (0.7-1.3) Estimated GFR (Cockcroft-Gault) 18.0 Glucose Level 217 mg/dL (70-99) Calcium Level 8.6 mg/dL (8.5-10.1) Glucose (Fingerstick) 139 mg/dL (70-99) 185 mg/dL (70-99) Microbiology 01/26/18 Blood Culture - Preliminary, Resulted NO GROWTH AFTER 4 DAYS 01/28/18 - Final, Complete 01/28/18 - Final, Complete 01/28/18 - Final, Complete 01/28/18 - Final, Complete 01/28/18 - Final, Complete 01/28/18 Gram Stain Evaluation - Final, Complete 01/28/18 Sputum Culture - Final, Complete 01/27/18 Urine Culture - Final, Complete 01/27/18 Urine Culture Result 1 ([place]) - Final, Complete Medications Current Medications Sodium Chloride 1,000 ml @ 1,000 mls/hr Q1H IV Last administered on at 17:54; Start 01/23/18 at 17:21; Stop 01/23/18 at 18:20; Status DC Prochlorperazine Edisylate (Compazine) 10 mg 1X ONCE IV Last administered on 01/23/18at 17:55; Start 01/23/18 at 17:30; Stop 01/23/18 at 17:31; Status DC Diphenhydramine HCl (Benadryl) 25 mg 1X ONCE IVP Last administered on at 17:57; Start 01/23/18 at 17:30; Stop 01/23/18 at 17:31; Status DC Metoclopramide HCl (Reglan Vial) 10 mg 1X ONCE IV Last administered on at 19:24; Start 01/23/18 at 19:15; Stop 01/23/18 at 19:17; Status DC Diphenhydramine HCl (Benadryl) 25 mg 1X ONCE IVP Last administered on at 19:25; Start 01/23/18 at 19:15; Stop 01/23/18 at 19:17; Status DC Metoprolol Tartrate (Lopressor Vial) 5 mg 1X ONCE IVP Last administered on at 19:55; Start 01/23/18 at 19:45; Stop 01/23/18 at 19:46; Status DC Insulin Human Regular (HumuLIN R VIAL) 5 unit 1X ONCE IV Last administered on 01/23/18at 19:55; Start 01/23/18 at 19:45; Stop 01/23/18 at 19:46; Status DC Labetalol HCl (Normodyne Iv Push) 10 mg 1X ONCE IVP ; Start 01/23/18 at 20:30 ; Stop 01/23/18 at 20:31; Status DC Labetalol HCl (Normodyne Iv Push) 10 mg 1X ONCE IVP Last administered on 01/23at 22:29; Start 01/23/18 at 22:00; Stop 01/23/18 at 22:04; Status DC Ondansetron HCl (Zofran) 4 mg PRN Q8HRS PRN IV NAUSEA/VOMITING Last administered on 01/24/18at 00:16; Start 01/23/18 at 22:45; Stop 01/24/18 at 03 :05; Status DC Fentanyl Citrate (Fentanyl 2ml Vial) 50 mcg PRN Q2HR PRN IV PAIN Last administered on 01/24/18at 19:48; Start 01/23/18 at 22:45; Stop 01/24/18 at 22 :44; Status DC Sodium Chloride 1,000 ml @ 100 mls/hr Q10H IV Last administered on 01/24/18at 19:56; Start 01/23/18 at 22:37; Stop 01/24/18 at 22:36; Status DC Labetalol HCl (Normodyne Iv Push) 10 mg PRN Q30MIN PRN IVP SBP>180 Last administered on 01/24/18at 00:07; Start 01/23/18 at 22:45; Stop 01/24/18 at 00 :49; Status DC Insulin Human Lispro (HumaLOG) 0-5 UNITS TIDWMEALS SQ Last administered on at 11:46; Start 01/24/18 at 08:00 Dextrose (Dextrose 50%-Water Syringe) 12.5 gm PRN Q15MIN PRN IV SEE COMMENTS Last administered on 01/29/18at 16:45; Start 01/23/18 at 23:00 Labetalol HCl (Normodyne Iv Push) 20 mg PRN Q2HR PRN IVP HYPERTENSION, SEE COMMENTS Last administered on 01/24/18at 02:12; Start 01/24/18 at 00:45; Stop 01/25/18 at 14:21; Status DC Carvedilol (Coreg) 6.25 mg 1X ONCE PO ; Start 01/24/18 at 00:45; Stop at 00:49; Status DC Amlodipine Besylate (Norvasc) 5 mg 1X ONCE PO Last administered on 01/24/18at 01:00; Start 01/24/18 at 00:45; Stop 01/24/18 at 00:49; Status DC Oxycodone/ Acetaminophen (Percocet 5/325) 1 tab PRN Q4HRS PRN PO PAIN; Start 01/24/18 at 01:00 Carvedilol (Coreg) 12.5 mg 1X ONCE PO Last administered on 01/24/18at 01:05; Start 01/24/18 at 01:00; Stop 01/24/18 at 01:04; Status DC Nicardipine HCl 50 mg/Sodium Chloride 270 ml @ 32.4 mls/hr CONT PRN IV SEE I/ O RECORD Last administered on 01/27/18at 05:03; Start 01/24/18 at 03:00 Acetaminophen (Tylenol) 650 mg PRN Q6HRS PRN PEG MILD PAIN / TEMP; Start 01/24 at 03:15; Status Cancel Ondansetron HCl (Zofran) 4 mg PRN Q6HRS PRN IV NAUSEA/VOMITING, 1ST CHOICE Last administered on 01/26/18at 22:04; Start 01/24/18 at 03:15 Metoclopramide HCl (Reglan Vial) 5 mg PRN Q6HRS PRN IV NAUSEA/VOMITING, 3RD CHOICE Last administered on 01/25/18at 11:53; Start 01/24/18 at 03:15; Stop at 15:35; Status DC Prochlorperazine Edisylate (Compazine) 10 mg PRN Q6HRS PRN IV NAUSEA/VOMITING, 2ND CHOICE Last administered on 01/27/18at 06:31; Start 01/24/18 at 03:15 Pantoprazole Sodium (Protonix) 40 mg 1X ONCE PO Last administered on at 03:13; Start 01/24/18 at 03:30; Stop 01/24/18 at 03:31; Status DC Acetaminophen (Tylenol) 650 mg PRN Q6HRS PRN PO MIGRAINE HEADACHE Last administered on 01/27/18at 18:54; Start 01/24/18 at 03:15 Insulin Human Lispro (HumaLOG) 10 units 1X ONCE SQ Last administered on at 05:09; Start 01/24/18 at 05:00; Stop 01/24/18 at 05:02; Status DC Magnesium Sulfate/ Dextrose 100 ml @ 100 mls/hr 1X ONCE IV Last administered on 01/24/18at 12:01; Start 01/24/18 at 09:15; Stop 01/24/18 at 10:14; Status DC Metoprolol Tartrate (Lopressor Vial) 5 mg Q6HRS IVP Last administered on at 11:08; Start 01/24/18 at 11:00; Stop 01/25/18 at 11:41; Status DC Trimethobenzamide HCl (Tigan Im) 200 mg PRN Q6HRS PRN IM NAUSEA/VOMITING; Start 01/24/18 at 11:00 Morphine Sulfate (Morphine Sulfate) 2 mg PRN Q2HR PRN IV MODERATE PAIN; Start 01/24/18 at 11:00 Amlodipine Besylate (Norvasc) 5 mg DAILY PO Last administered on 01/31/18at 08: 53; Start 01/24/18 at 11:30 Clonidine HCl (Catapres) 0.2 mg BID PO Last administered on 01/31/18at 08:53; Start 01/24/18 at 11:30 Clopidogrel Bisulfate (Plavix) 75 mg DAILY PO Last administered on 01/31/18at 08 :52; Start 01/24/18 at 11:30 Insulin Glargine (Lantus) 4 units DAILYWBKFT SQ ; Start 01/24/18 at 11:30; Stop 01/24/18 at 11:30; Status DC Insulin Glargine (Lantus) 4 units QHS SQ ; Start 01/24/18 at 21:00; Status UNV Carvedilol (Coreg) 25 mg BIDWMEALS PO Last administered on 01/31/18at 08:52; Start 01/24/18 at 17:00 Non-Formulary Medication (Hydrochlorothiazide (Hydrochlorothiazide Capsule ) ) 10 mg BID PO ; Start 01/24/18 at 21:00; Stop 01/24/18 at 21:00; Status DC Mycophenolate Mofetil (Cellcept) 250 mg BID PO Last administered on 01/24/18at 12:01; Start 01/24/18 at 12:00; Stop 01/24/18 at 15:58; Status DC Pantoprazole Sodium (Protonix) 40 mg DAILYAC PO ; Start 01/24/18 at 11:30; Stop 01/24/18 at 12:01; Status DC Tacrolimus (Prograf) 2 mg BID PO Last administered on 01/24/18at 12:02; Start 01/24/18 at 12:00; Stop 01/24/18 at 13:07; Status DC Insulin Glargine (Lantus) 4 units BID SQ Last administered on 01/29/18at 09:27 ; Start 01/24/18 at 11:30; Stop 01/29/18 at 11:29; Status DC Pantoprazole Sodium (PROTONIX VIAL for IV PUSH) 40 mg DAILYAC IVP Last administered on 01/25/18at 09:34; Start 01/24/18 at 13:00; Stop 01/25/18 at 15 :35; Status DC Tacrolimus (Prograf) 4 mg DAILY PO ; Start 01/25/18 at 09:00; Stop 01/25/18 at 09:00; Status DC Tacrolimus (Prograf) 3 mg QHS PO ; Start 01/24/18 at 21:00; Stop 01/24/18 at 21:00; Status DC Tacrolimus (Prograf) 2 mg DAILY SL Last administered on 01/27/18at 07:59; Start 01/25/18 at 09:00; Stop 01/27/18 at 17:15; Status DC Tacrolimus (Prograf) 1 mg QHS SL Last administered on 01/26/18at 21:33; Start 01/24/18 at 21:00; Stop 01/27/18 at 17:13; Status DC Sodium Chloride (Saline Mist Nasal) 1 bryan PRN Q1HR PRN NS NASAL CONGESTION; Start 01/24/18 at 15:00; Stop 01/24/18 at 17:28; Status DC Gabapentin (Neurontin) 100 mg TID PO Last administered on 01/31/18at 08:52; Start 01/24/18 at 16:00 Mycophenolate Mofetil 250 mg/ Dextrose 42 ml @ 21 mls/hr Q12H IV Last administered on 01/27/18at 09:33; Start 01/24/18 at 21:00; Stop 01/27/18 at 14 :11; Status DC Tacrolimus (Prograf) 0.5 mg QHS SL Last administered on 01/26/18at 21:33; Start 01/24/18 at 21:00; Stop 01/27/18 at 17:13; Status DC Sodium Chloride (Saline Mist Nasal) 1 bryan PRN Q1HR PRN NS NASAL CONGESTION; Start 01/24/18 at 17:30 Sodium Chloride 1,000 ml @ 75 mls/hr [id number] IV ; Start 01/25/18 at 07:30; Stop 01/27/18 at 15:58; Status DC Fentanyl Citrate (Fentanyl 2ml Vial) 50 mcg PRN Q3HRS PRN IV SEVERE PAIN Last administered on 01/26/18at 22:05; Start 01/25/18 at 09:15 Sodium Chloride 1,000 ml @ 75 mls/hr [id number] IV Last administered on at 09:35; Start 01/25/18 at 09:15; Stop 01/27/18 at 15:58; Status DC Metoprolol Tartrate (Lopressor Vial) 7.5 mg Q6HRS IVP ; Start 01/25/18 at 18:00 ; Stop 01/25/18 at 18:00; Status DC Clonidine HCl (Catapres Tts-3) 1 patch WEEKLY TD Last administered on at 14:02; Start 01/25/18 at 13:00 Labetalol HCl (Normodyne Iv Push) 20 mg PRN Q4HRS PRN IVP HYPERTENSION, SEE COMMENTS Last administered on 01/31/18at 05:07; Start 01/25/18 at 13:00 Ringer's Solution 1,000 ml @ 30 mls/hr Q24H IV ; Start 01/25/18 at 15:15; Status Cancel Propofol 20 ml @ As Directed STK-MED ONCE IV ; Start 01/25/18 at 15:07; Stop 01/25/18 at 15:08; Status DC Lidocaine HCl (Xylocaine-Mpf 1% 2ml Vial) 2 ml STK-MED ONCE .ROUTE ; Start at 15:07; Stop 01/25/18 at 15:08; Status DC Sodium Chloride 1,000 ml @ 0 mls/hr Q0M IV Last administered on 01/25/18at 15: 13; Start 01/25/18 at 15:15; Stop 01/25/18 at 15:43; Status DC Metoclopramide HCl (Reglan Vial) 5 mg Q6HRS IV Last administered on 01/28/18at 06:02; Start 01/25/18 at 18:00; Stop 01/28/18 at 09:59; Status DC Pantoprazole Sodium (PROTONIX VIAL for IV PUSH) 40 mg BIDAC IVP Last administered on 01/28/18at 08:59; Start 01/25/18 at 16:30; Stop 01/28/18 at 09 :59; Status DC Levofloxacin/ Dextrose 100 ml @ 100 mls/hr Q24H IV ; Start 01/26/18 at 08:30; Stop 01/26/18 at 09:32; Status DC Levalbuterol HCl (Xopenex) 1.25 mg PRN Q6HRS PRN NEB SHORTNESS OF BREATH Last administered on 01/27/18at 12:19; Start 01/26/18 at 08:45 Piperacillin Sod/ Tazobactam Sod (Zosyn Per Pharmacy) 1 each PRN DAILY PRN MC SEE COMMENTS; Start 01/26/18 at 10:00; Stop 01/28/18 at 10:56; Status DC Furosemide (Lasix) 40 mg DAILY IVP Last administered on 01/28/18at 08:59; Start 01/26/18 at 10:30 Piperacillin Sod/ Tazobactam Sod 3.375 gm/Sodium Chloride 50 ml @ 100 mls/hr Q6HRS IV Last administered on 01/28/18at 06:03; Start 01/26/18 at 11:00; Stop 01/28/18 at 10:46; Status DC Linezolid/Dextrose 300 ml @ 300 mls/hr Q12HR IV Last administered on at 20:11; Start 01/27/18 at 10:00; Stop 01/30/18 at 08:30; Status DC Mycophenolate Mofetil (Cellcept) 250 mg BID PO Last administered on 01/31/18at 08:52; Start 01/27/18 at 21:00 Tacrolimus (Prograf) 3 mg QHS PO Last administered on 01/29/18at 20:10; Start 01/27/18 at 21:00; Stop 01/30/18 at 05:04; Status DC Tacrolimus (Prograf) 4 mg DAILY PO Last administered on 01/30/18at 08:18; Start 01/28/18 at 09:00; Stop 01/30/18 at 12:00; Status DC Doxycycline Hyclate (Vibra-Tab) 100 mg BID PO Last administered on 01/28/18at 09:06; Start 01/28/18 at 09:00; Stop 01/28/18 at 10:52; Status DC Metoclopramide HCl (Reglan Vial) 5 mg QIDACHS IV ; Start 01/28/18 at 11:30; Stop 01/28/18 at 11:30; Status DC Pantoprazole Sodium (Protonix) 40 mg BIDAC PO Last administered on 01/31/18at 08 :52; Start 01/28/18 at 10:30 Metoclopramide HCl (Reglan Oral Solution) 5 mg QIDACHS PO Last administered on 01/31/18at 12:06; Start 01/28/18 at 11:30 Cefepime HCl 1 gm/ Dextrose 50 ml @ 100 mls/hr DAILY IV ; Start 01/29/18 at 09 :00; Status UNV Cefepime HCl (Maxipime) 1 gm DAILY IVP Last administered on 01/31/18at 08:51; Start 01/28/18 at 12:00 Insulin Human Lispro (HumaLOG) 20 units 1X ONCE SQ Last administered on at 04:39; Start 01/29/18 at 05:00; Stop 01/29/18 at 05:01; Status DC Insulin Glargine (Lantus) 20 units TID SQ ; Start 01/29/18 at 14:00; Stop at 14:00; Status DC Insulin Human Lispro (HumaLOG) 10 units TIDAC SQ Last administered on at 12:24; Start 01/29/18 at 11:30; Stop 01/29/18 at 17:48; Status DC Insulin Glargine (Lantus) 20 units QHS SQ Last administered on 01/30/18at 21:00 ; Start 01/29/18 at 21:00 Docusate Sodium (Colace) 100 mg PRN DAILY PRN PO HARD STOOLS Last administered on 01/30/18at 08:16; Start 01/29/18 at 11:45 Polyethylene Glycol (miraLAX PACKET) 17 gm PRN DAILY PRN PO CONSTIPATION Last administered on 01/30/18at 08:20; Start 01/29/18 at 11:45 Insulin Human Lispro (HumaLOG) 6 units TIDAC SQ Last administered on 01/31/18at 12:10; Start 01/30/18 at 07:30 Tacrolimus (Prograf) 3 mg QHS PO Last administered on 01/30/18at 19:59; Start 01/30/18 at 21:00 Tacrolimus (Prograf) 4 mg DAILY PO Last administered on 01/31/18at 08:52; Start 01/31/18 at 09:00 Potassium Chloride (Klor-Con) 40 meq 1X ONCE PO Last administered on at 13:56; Start 01/30/18 at 13:30; Stop 01/30/18 at 13:31; Status DC Magnesium Citrate (Citroma) 296 ml PRN 1X PRN PO CONSTIPATION; Start 01/30/18 at 13:15 Bisacodyl (Dulcolax Supp) 10 mg PRN DAILY PRN IA CONSTIPATION; Start 01/30/18 at 13:15 Darbepoetin Jd (Aranesp) 100 mcg 1X ONCE SQ Last administered on 01/31/18at 10:46; Start 01/31/18 at 09:00; Stop 01/31/18 at 09:01; Status DC Active Scripts Active Oxycodone-Acetaminophen 5-325 (Oxycodone Hcl/Acetaminophen) 1 Each Tablet 1 Tab PO PRN Q4HRS PRN Reported Prograf (Tacrolimus) 1 Mg Capsule 3 Cap PO QHS Prograf (Tacrolimus) 1 Mg Capsule 4 Cap PO DAILY Lantus Solostar (Insulin Glargine,Hum.rec.anlog) 100 Unit/1 Ml Insuln.pen 4 Unit SQ DAILYWBKFT Lantus Solostar (Insulin Glargine,Hum.rec.anlog) 100 Unit/1 Ml Insuln.pen 4 Unit SQ QHS Amlodipine Besylate 5 Mg Tablet 5 Mg PO DAILY Clonidine Hcl 0.2 Mg Tablet 1 Tab PO BID Clopidogrel (Clopidogrel Bisulfate) 75 Mg Tablet 1 Tab PO DAILY Cellcept (Mycophenolate Mofetil) 250 Mg Capsule 1 Cap PO BID Pantoprazole Sodium 20 Mg Tablet.dr 20 Mg PO DAILY Hydrochlorothiazide Capsule (Hydrochlorothiazide) 12.5 Mg Capsule 10 Mg PO BID Carvedilol 25 Mg Tablet 2 Tab PO DAILYBFRSUP Vitals/I & O Vital Sign - Last 24 Hours 01/30/18 01/30/18 01/30/18 01/30/18 14:40 17:04 19:37 20:00 Temp 99.1 99.3 99.1 99.3 Pulse 84 84 86 86 Resp 16 18 B/P (MAP) 147/70 (95) 147/70 185/59 (101) 185/59 Pulse Ox 100 99 O2 Delivery Nasal Cannula Nasal Cannula O2 Flow Rate 4.0 2.0 01/30/18 01/30/18 01/31/18 01/31/18 20:03 23:00 00:49 03:00 Temp 99.3 99.3 99.3 99.3 99.3 99.3 Pulse 86 87 85 B/P (MAP) 185/59 (101) 154/70 (98) 193/81 (118) Pulse Ox 99 99 99 O2 Delivery Nasal Cannula Nasal Cannula Nasal Cannula Nasal Cannula O2 Flow Rate 2.0 2.0 2.0 01/31/18 01/31/18 01/31/18 01/31/18 05:07 06:51 08:00 08:52 Pulse 88 87 87 B/P (MAP) 193/81 152/80 (104) 152/80 O2 Delivery Nasal Cannula O2 Flow Rate 4.0 01/31/18 01/31/18 01/31/18 08:53 08:53 11:00 Temp 99.1 99.1 Pulse 87 87 86 Resp 20 B/P (MAP) 152/80 152/80 156/71 (99) Pulse Ox 100 O2 Delivery Nasal Cannula O2 Flow Rate 3.0 Intake and Output 01/30/18 01/30/18 01/31/18 15:00 23:00 07:00 Intake Total 120 ml 640 ml 800 ml Output Total 550 ml 826 ml Balance 120 ml 90 ml -26 ml LUDIN GARCIA MD Jan 31, 2018 12:43
--- NOTE | 2018-01-31 13:24 | PDOC ---
PULMONARY PROGRESS NOTES Subjective no soa eating PO Vitals Vital Signs Date Time Temp Pulse Resp B/P (MAP) Pulse Ox O2 Delivery O2 Flow Rate FiO2 01/31/18 11:00 99.1 86 20 156/71 (99) 100 Nasal Cannula 3.0 99.1 ROS: No Nausea, No Chest Pain, No Abdominal Pain General: Alert, No acute distress Lungs: Clear Cardiovascular: S1, S2 Abdomen: Soft Neuro Exam: Alert Extremities: Other (bka) Skin: Warm Labs Laboratory Tests Test 01/29/18 16:32 01/29/18 16:48 01/29/18 20:30 01/30/18 01:07 Glucose (Fingerstick) 40 mg/dL (70-99) 110 mg/dL (70-99) 167 mg/dL (70-99) 273 mg/dL (70-99) Test 01/30/18 07:07 01/30/18 09:05 01/30/18 11:23 01/30/18 16:22 Glucose (Fingerstick) 277 mg/dL (70-99) 197 mg/dL (70-99) 47 mg/dL (70-99) White Blood Count 5.9 x10^3/uL (4.0-11.0) Red Blood Count 2.56 x10^6/uL (4.30-5.70) Hemoglobin 7.9 g/dL (13.0-17.5) Hematocrit 22.4 % (39.0-53.0) Mean Corpuscular Volume 88 fL (79-100) Mean Corpuscular Hemoglobin 31 pg (25-35) Mean Corpuscular Hemoglobin Concent 35 g/dL (31-37) Red Cell Distribution Width 13.2 % (11.5-14.5) Platelet Count 327 x10^3/uL (140-400) Neutrophils (%) (Auto) 77 % (31-73) Lymphocytes (%) (Auto) 13 % (24-48) Monocytes (%) (Auto) 8 % (0-9) Eosinophils (%) (Auto) 2 % (0-3) Basophils (%) (Auto) 0 % (0-3) Neutrophils # (Auto) 4.5 x10^3uL (1.8-7.7) Lymphocytes # (Auto) 0.8 x10^3/uL (1.0-4.8) Monocytes # (Auto) 0.5 x10^3/uL (0.0-1.1) Eosinophils # (Auto) 0.1 x10^3/uL (0.0-0.7) Basophils # (Auto) 0.0 x10^3/uL (0.0-0.2) Sodium Level 136 mmol/L (136-145) Potassium Level 3.2 mmol/L (3.5-5.1) Chloride Level 103 mmol/L (98-107) Carbon Dioxide Level 21 mmol/L (21-32) Anion Gap 12 (6-14) Blood Urea Nitrogen 45 mg/dL (8-26) Creatinine 4.4 mg/dL (0.7-1.3) Estimated GFR (Cockcroft-Gault) 14.3 Glucose Level 301 mg/dL (70-99) Calcium Level 8.8 mg/dL (8.5-10.1) Test 01/30/18 16:48 01/30/18 20:27 01/30/18 23:27 01/31/18 03:40 Glucose (Fingerstick) 86 mg/dL (70-99) 159 mg/dL (70-99) 259 mg/dL (70-99) White Blood Count 5.2 x10^3/uL (4.0-11.0) Red Blood Count 2.30 x10^6/uL (4.30-5.70) Hemoglobin 7.0 g/dL (13.0-17.5) Hematocrit 20.0 % (39.0-53.0) Mean Corpuscular Volume 87 fL (79-100) Mean Corpuscular Hemoglobin 31 pg (25-35) Mean Corpuscular Hemoglobin Concent 35 g/dL (31-37) Red Cell Distribution Width 13.1 % (11.5-14.5) Platelet Count 328 x10^3/uL (140-400) Neutrophils (%) (Auto) 66 % (31-73) Lymphocytes (%) (Auto) 21 % (24-48) Monocytes (%) (Auto) 11 % (0-9) Eosinophils (%) (Auto) 3 % (0-3) Basophils (%) (Auto) 0 % (0-3) Neutrophils # (Auto) 3.4 x10^3uL (1.8-7.7) Lymphocytes # (Auto) 1.1 x10^3/uL (1.0-4.8) Monocytes # (Auto) 0.5 x10^3/uL (0.0-1.1) Eosinophils # (Auto) 0.1 x10^3/uL (0.0-0.7) Basophils # (Auto) 0.0 x10^3/uL (0.0-0.2) Sodium Level 139 mmol/L (136-145) Potassium Level 4.0 mmol/L (3.5-5.1) Chloride Level 106 mmol/L (98-107) Carbon Dioxide Level 22 mmol/L (21-32) Anion Gap 11 (6-14) Blood Urea Nitrogen 41 mg/dL (8-26) Creatinine 3.6 mg/dL (0.7-1.3) Estimated GFR (Cockcroft-Gault) 18.0 Glucose Level 217 mg/dL (70-99) Calcium Level 8.6 mg/dL (8.5-10.1) Test 01/31/18 07:58 01/31/18 11:57 Glucose (Fingerstick) 139 mg/dL (70-99) 185 mg/dL (70-99) Laboratory Tests Test 01/30/18 16:22 01/30/18 16:48 01/30/18 20:27 01/30/18 23:27 Glucose (Fingerstick) 47 mg/dL (70-99) 86 mg/dL (70-99) 159 mg/dL (70-99) 259 mg/dL (70-99) Test 01/31/18 03:40 01/31/18 07:58 01/31/18 11:57 White Blood Count 5.2 x10^3/uL (4.0-11.0) Red Blood Count 2.30 x10^6/uL (4.30-5.70) Hemoglobin 7.0 g/dL (13.0-17.5) Hematocrit 20.0 % (39.0-53.0) Mean Corpuscular Volume 87 fL (79-100) Mean Corpuscular Hemoglobin 31 pg (25-35) Mean Corpuscular Hemoglobin Concent 35 g/dL (31-37) Red Cell Distribution Width 13.1 % (11.5-14.5) Platelet Count 328 x10^3/uL (140-400) Neutrophils (%) (Auto) 66 % (31-73) Lymphocytes (%) (Auto) 21 % (24-48) Monocytes (%) (Auto) 11 % (0-9) Eosinophils (%) (Auto) 3 % (0-3) Basophils (%) (Auto) 0 % (0-3) Neutrophils # (Auto) 3.4 x10^3uL (1.8-7.7) Lymphocytes # (Auto) 1.1 x10^3/uL (1.0-4.8) Monocytes # (Auto) 0.5 x10^3/uL (0.0-1.1) Eosinophils # (Auto) 0.1 x10^3/uL (0.0-0.7) Basophils # (Auto) 0.0 x10^3/uL (0.0-0.2) Sodium Level 139 mmol/L (136-145) Potassium Level 4.0 mmol/L (3.5-5.1) Chloride Level 106 mmol/L (98-107) Carbon Dioxide Level 22 mmol/L (21-32) Anion Gap 11 (6-14) Blood Urea Nitrogen 41 mg/dL (8-26) Creatinine 3.6 mg/dL (0.7-1.3) Estimated GFR (Cockcroft-Gault) 18.0 Glucose Level 217 mg/dL (70-99) Calcium Level 8.6 mg/dL (8.5-10.1) Glucose (Fingerstick) 139 mg/dL (70-99) 185 mg/dL (70-99) Medications Active Scripts Medications Dose Route/Sig Max Daily Dose Days Date Category Prograf (Tacrolimus) 1 Mg Capsule 3 Cap PO QHS 01/24/18 Reported Prograf (Tacrolimus) 1 Mg Capsule 4 Cap PO DAILY 01/24/18 Reported Lantus Solostar (Insulin Glargine,Hum.rec.anlog) 100 Unit/1 Ml Insuln.pen 4 Unit SQ [id number] 01/24/18 Reported Lantus Solostar (Insulin Glargine,Hum.rec.anlog) 100 Unit/1 Ml Insuln.pen 4 Unit SQ QHS 01/24/18 Reported Amlodipine Besylate 5 Mg Tablet 5 Mg PO DAILY 01/24/18 Reported Clonidine Hcl 0.2 Mg Tablet 1 Tab PO BID 01/24/18 Reported Oxycodone-Acetaminophen 5-325 (Oxycodone Hcl/Acetaminophen) 1 Each Tablet 1 Tab PO PRN Q4HRS PRN 07/15/16 Rx Clopidogrel (Clopidogrel Bisulfate) 75 Mg Tablet 1 Tab PO DAILY 07/15/16 Reported Cellcept (Mycophenolate Mofetil) 250 Mg Capsule 1 Cap PO BID 07/15/16 Reported Pantoprazole Sodium 20 Mg Tablet.dr 20 Mg PO DAILY 07/15/16 Reported Hydrochlorothiazide Capsule (Hydrochlorothiazide) 12.5 Mg Capsule 10 Mg PO BID 07/15/16 Reported Carvedilol 25 Mg Tablet 2 Tab PO [id number] 07/15/[address] chest 1. Consolidating infiltrates in both lungs, greatest in the left lower lobe, likely due to pneumonia or other inflammatory process. 2. There are several small groundglass nodules in the right lower lobe, may be related to the above process, could also be monitored with short-term follow-up CT. 3. Pleural effusions, left greater than right. 4. Distention of the upper abdominal bowel loops, correlate for symptoms of ileus or obstruction. 5. Partially visualized kidneys are very small and atrophic. Electronically signed by: Fahad Portillo MD (01/30/2018 1:43 PM) [facility] Impression . 1. Acute respiratory failure. improved 2. Abnormal cxr 01/27 with bilateral infiltrates, suspect pneumonia, suspect gram negative/ ct chest c/w pneumonia. Nodules likely inflammatory 3. suspect Acute on chronic heart failure. 4. End-stage renal disease, status post renal transplant. 5. Immunocompromised. 6. Accelerated hypertension. 7. Type 2 diabetes. 8. Anemia Plan . NO SOA PRN BIPAP CT CHEST C/W PNEUMONIA ABX MONITOR H/H D/W RENAL. ILEUS ON CT/ EATING PO/ HAVING BM/ WILL LEAVE UP TO PCP FOR ? GI CONSULT AMBULATE WITH PROSTHESIS D/W KEENAN HOWE MD Jan 31, 2018 13:24
--- NOTE | 2018-01-31 14:13 | PDOC ---
PROGRESS NOTES Chief Complaint Chief Complaint Hypokalemia - resolved (4.0 01/31) Constipation [facility] HTN Severe anemia - Hgb 7.0 01/31 H/o cluster headache H/o renal transplant 2007 H/o DM1 H/o HLP H/o CAD History of Present Illness History of Present Illness Pt seen and examined while sitting upright in bed Pt was smiling and joking and looked better today than yesterday He confirmed he is feeling better Discussed plan w/pt Vitals Vitals Vital Signs Date Time Temp Pulse Resp B/P (MAP) Pulse Ox O2 Delivery O2 Flow Rate FiO2 01/31/18 11:00 99.1 86 20 156/71 (99) 100 Nasal Cannula 3.0 99.1 Physical Exam Physical Exam Neck: Supple, No JVD General: Alert, Oriented X3 Heart: Regular rate, Normal S1, Normal S2 Lungs: Clear Abdomen: Normal bowel sounds, No tenderness Extremities: No clubbing, No cyanosis, Other (bilateral BKAs) Skin: No rashes, No breakdown, No significant lesion Labs LABS Laboratory Tests Test 01/30/18 16:22 01/30/18 16:48 01/30/18 20:27 01/30/18 23:27 Glucose (Fingerstick) 47 mg/dL (70-99) 86 mg/dL (70-99) 159 mg/dL (70-99) 259 mg/dL (70-99) Test 01/31/18 03:40 01/31/18 07:58 01/31/18 11:57 White Blood Count 5.2 x10^3/uL (4.0-11.0) Red Blood Count 2.30 x10^6/uL (4.30-5.70) Hemoglobin 7.0 g/dL (13.0-17.5) Hematocrit 20.0 % (39.0-53.0) Mean Corpuscular Volume 87 fL (79-100) Mean Corpuscular Hemoglobin 31 pg (25-35) Mean Corpuscular Hemoglobin Concent 35 g/dL (31-37) Red Cell Distribution Width 13.1 % (11.5-14.5) Platelet Count 328 x10^3/uL (140-400) Neutrophils (%) (Auto) 66 % (31-73) Lymphocytes (%) (Auto) 21 % (24-48) Monocytes (%) (Auto) 11 % (0-9) Eosinophils (%) (Auto) 3 % (0-3) Basophils (%) (Auto) 0 % (0-3) Neutrophils # (Auto) 3.4 x10^3uL (1.8-7.7) Lymphocytes # (Auto) 1.1 x10^3/uL (1.0-4.8) Monocytes # (Auto) 0.5 x10^3/uL (0.0-1.1) Eosinophils # (Auto) 0.1 x10^3/uL (0.0-0.7) Basophils # (Auto) 0.0 x10^3/uL (0.0-0.2) Sodium Level 139 mmol/L (136-145) Potassium Level 4.0 mmol/L (3.5-5.1) Chloride Level 106 mmol/L (98-107) Carbon Dioxide Level 22 mmol/L (21-32) Anion Gap 11 (6-14) Blood Urea Nitrogen 41 mg/dL (8-26) Creatinine 3.6 mg/dL (0.7-1.3) Estimated GFR (Cockcroft-Gault) 18.0 Glucose Level 217 mg/dL (70-99) Calcium Level 8.6 mg/dL (8.5-10.1) Glucose (Fingerstick) 139 mg/dL (70-99) 185 mg/dL (70-99) Review of Systems Review of Systems C/o trouble sleeping but is otherwise feeling well and returning to baseline Denies chest pain, SOB, abdominal pain Assessment and Plan Assessmemt and Plan Problems Medical Problems: (1) Hypertensive urgency Status: Acute (2) Intractable nausea and vomiting Status: Acute (3) Migraine headache Status: Acute Assessment: Hypokalemia - resolved (4.0 11/) Constipation [facility] acquired pneumonia HTN Severe anemia H/o cluster headache H/o renal transplant 2007 H/o DM1 H/o HLP H/o CAD Plan: D/c upon return to baseline Cr (1.9) PRN Benadryl at bedtime Labs Home meds PT/OT IV abx Comment Review of Relevant I have reviewed the following items nadiya (where applicable) has been applied. Labs Laboratory Tests Test 01/29/18 16:32 01/29/18 16:48 01/29/18 20:30 01/30/18 01:07 Glucose (Fingerstick) 40 mg/dL (70-99) 110 mg/dL (70-99) 167 mg/dL (70-99) 273 mg/dL (70-99) Test 01/30/18 07:07 01/30/18 09:05 01/30/18 11:23 01/30/18 16:22 Glucose (Fingerstick) 277 mg/dL (70-99) 197 mg/dL (70-99) 47 mg/dL (70-99) White Blood Count 5.9 x10^3/uL (4.0-11.0) Red Blood Count 2.56 x10^6/uL (4.30-5.70) Hemoglobin 7.9 g/dL (13.0-17.5) Hematocrit 22.4 % (39.0-53.0) Mean Corpuscular Volume 88 fL (79-100) Mean Corpuscular Hemoglobin 31 pg (25-35) Mean Corpuscular Hemoglobin Concent 35 g/dL (31-37) Red Cell Distribution Width 13.2 % (11.5-14.5) Platelet Count 327 x10^3/uL (140-400) Neutrophils (%) (Auto) 77 % (31-73) Lymphocytes (%) (Auto) 13 % (24-48) Monocytes (%) (Auto) 8 % (0-9) Eosinophils (%) (Auto) 2 % (0-3) Basophils (%) (Auto) 0 % (0-3) Neutrophils # (Auto) 4.5 x10^3uL (1.8-7.7) Lymphocytes # (Auto) 0.8 x10^3/uL (1.0-4.8) Monocytes # (Auto) 0.5 x10^3/uL (0.0-1.1) Eosinophils # (Auto) 0.1 x10^3/uL (0.0-0.7) Basophils # (Auto) 0.0 x10^3/uL (0.0-0.2) Sodium Level 136 mmol/L (136-145) Potassium Level 3.2 mmol/L (3.5-5.1) Chloride Level 103 mmol/L (98-107) Carbon Dioxide Level 21 mmol/L (21-32) Anion Gap 12 (6-14) Blood Urea Nitrogen 45 mg/dL (8-26) Creatinine 4.4 mg/dL (0.7-1.3) Estimated GFR (Cockcroft-Gault) 14.3 Glucose Level 301 mg/dL (70-99) Calcium Level 8.8 mg/dL (8.5-10.1) Test 01/30/18 16:48 01/30/18 20:27 01/30/18 23:27 01/31/18 03:40 Glucose (Fingerstick) 86 mg/dL (70-99) 159 mg/dL (70-99) 259 mg/dL (70-99) White Blood Count 5.2 x10^3/uL (4.0-11.0) Red Blood Count 2.30 x10^6/uL (4.30-5.70) Hemoglobin 7.0 g/dL (13.0-17.5) Hematocrit 20.0 % (39.0-53.0) Mean Corpuscular Volume 87 fL (79-100) Mean Corpuscular Hemoglobin 31 pg (25-35) Mean Corpuscular Hemoglobin Concent 35 g/dL (31-37) Red Cell Distribution Width 13.1 % (11.5-14.5) Platelet Count 328 x10^3/uL (140-400) Neutrophils (%) (Auto) 66 % (31-73) Lymphocytes (%) (Auto) 21 % (24-48) Monocytes (%) (Auto) 11 % (0-9) Eosinophils (%) (Auto) 3 % (0-3) Basophils (%) (Auto) 0 % (0-3) Neutrophils # (Auto) 3.4 x10^3uL (1.8-7.7) Lymphocytes # (Auto) 1.1 x10^3/uL (1.0-4.8) Monocytes # (Auto) 0.5 x10^3/uL (0.0-1.1) Eosinophils # (Auto) 0.1 x10^3/uL (0.0-0.7) Basophils # (Auto) 0.0 x10^3/uL (0.0-0.2) Sodium Level 139 mmol/L (136-145) Potassium Level 4.0 mmol/L (3.5-5.1) Chloride Level 106 mmol/L (98-107) Carbon Dioxide Level 22 mmol/L (21-32) Anion Gap 11 (6-14) Blood Urea Nitrogen 41 mg/dL (8-26) Creatinine 3.6 mg/dL (0.7-1.3) Estimated GFR (Cockcroft-Gault) 18.0 Glucose Level 217 mg/dL (70-99) Calcium Level 8.6 mg/dL (8.5-10.1) Test 01/31/18 07:58 01/31/18 11:57 Glucose (Fingerstick) 139 mg/dL (70-99) 185 mg/dL (70-99) Laboratory Tests Test 01/30/18 16:22 01/30/18 16:48 01/30/18 20:27 01/30/18 23:27 Glucose (Fingerstick) 47 mg/dL (70-99) 86 mg/dL (70-99) 159 mg/dL (70-99) 259 mg/dL (70-99) Test 01/31/18 03:40 01/31/18 07:58 01/31/18 11:57 White Blood Count 5.2 x10^3/uL (4.0-11.0) Red Blood Count 2.30 x10^6/uL (4.30-5.70) Hemoglobin 7.0 g/dL (13.0-17.5) Hematocrit 20.0 % (39.0-53.0) Mean Corpuscular Volume 87 fL (79-100) Mean Corpuscular Hemoglobin 31 pg (25-35) Mean Corpuscular Hemoglobin Concent 35 g/dL (31-37) Red Cell Distribution Width 13.1 % (11.5-14.5) Platelet Count 328 x10^3/uL (140-400) Neutrophils (%) (Auto) 66 % (31-73) Lymphocytes (%) (Auto) 21 % (24-48) Monocytes (%) (Auto) 11 % (0-9) Eosinophils (%) (Auto) 3 % (0-3) Basophils (%) (Auto) 0 % (0-3) Neutrophils # (Auto) 3.4 x10^3uL (1.8-7.7) Lymphocytes # (Auto) 1.1 x10^3/uL (1.0-4.8) Monocytes # (Auto) 0.5 x10^3/uL (0.0-1.1) Eosinophils # (Auto) 0.1 x10^3/uL (0.0-0.7) Basophils # (Auto) 0.0 x10^3/uL (0.0-0.2) Sodium Level 139 mmol/L (136-145) Potassium Level 4.0 mmol/L (3.5-5.1) Chloride Level 106 mmol/L (98-107) Carbon Dioxide Level 22 mmol/L (21-32) Anion Gap 11 (6-14) Blood Urea Nitrogen 41 mg/dL (8-26) Creatinine 3.6 mg/dL (0.7-1.3) Estimated GFR (Cockcroft-Gault) 18.0 Glucose Level 217 mg/dL (70-99) Calcium Level 8.6 mg/dL (8.5-10.1) Glucose (Fingerstick) 139 mg/dL (70-99) 185 mg/dL (70-99) Microbiology 01/26/18 Blood Culture - Preliminary, Resulted NO GROWTH AFTER 4 DAYS 01/28/18 - Final, Complete 01/28/18 - Final, Complete 01/28/18 - Final, Complete 01/28/18 - Final, Complete 01/28/18 - Final, Complete 01/28/18 Gram Stain Evaluation - Final, Complete 01/28/18 Sputum Culture - Final, Complete 01/27/18 Urine Culture - Final, Complete 01/27/18 Urine Culture Result 1 ([place]) - Final, Complete Medications Current Medications Sodium Chloride 1,000 ml @ 1,000 mls/hr Q1H IV Last administered on at 17:54; Start 01/23/18 at 17:21; Stop 01/23/18 at 18:20; Status DC Prochlorperazine Edisylate (Compazine) 10 mg 1X ONCE IV Last administered on 01/23/18at 17:55; Start 01/23/18 at 17:30; Stop 01/23/18 at 17:31; Status DC Diphenhydramine HCl (Benadryl) 25 mg 1X ONCE IVP Last administered on at 17:57; Start 01/23/18 at 17:30; Stop 01/23/18 at 17:31; Status DC Metoclopramide HCl (Reglan Vial) 10 mg 1X ONCE IV Last administered on at 19:24; Start 01/23/18 at 19:15; Stop 01/23/18 at 19:17; Status DC Diphenhydramine HCl (Benadryl) 25 mg 1X ONCE IVP Last administered on at 19:25; Start 01/23/18 at 19:15; Stop 01/23/18 at 19:17; Status DC Metoprolol Tartrate (Lopressor Vial) 5 mg 1X ONCE IVP Last administered on at 19:55; Start 01/23/18 at 19:45; Stop 01/23/18 at 19:46; Status DC Insulin Human Regular (HumuLIN R VIAL) 5 unit 1X ONCE IV Last administered on 01/23/18at 19:55; Start 01/23/18 at 19:45; Stop 01/23/18 at 19:46; Status DC Labetalol HCl (Normodyne Iv Push) 10 mg 1X ONCE IVP ; Start 01/23/18 at 20:30 ; Stop 01/23/18 at 20:31; Status DC Labetalol HCl (Normodyne Iv Push) 10 mg 1X ONCE IVP Last administered on 01/23at 22:29; Start 01/23/18 at 22:00; Stop 01/23/18 at 22:04; Status DC Ondansetron HCl (Zofran) 4 mg PRN Q8HRS PRN IV NAUSEA/VOMITING Last administered on 01/24/18at 00:16; Start 01/23/18 at 22:45; Stop 01/24/18 at 03 :05; Status DC Fentanyl Citrate (Fentanyl 2ml Vial) 50 mcg PRN Q2HR PRN IV PAIN Last administered on 01/24/18at 19:48; Start 01/23/18 at 22:45; Stop 01/24/18 at 22 :44; Status DC Sodium Chloride 1,000 ml @ 100 mls/hr Q10H IV Last administered on 01/24/18at 19:56; Start 01/23/18 at 22:37; Stop 01/24/18 at 22:36; Status DC Labetalol HCl (Normodyne Iv Push) 10 mg PRN Q30MIN PRN IVP SBP>180 Last administered on 01/24/18at 00:07; Start 01/23/18 at 22:45; Stop 01/24/18 at 00 :49; Status DC Insulin Human Lispro (HumaLOG) 0-5 UNITS TIDWMEALS SQ Last administered on at 11:46; Start 01/24/18 at 08:00 Dextrose (Dextrose 50%-Water Syringe) 12.5 gm PRN Q15MIN PRN IV SEE COMMENTS Last administered on 01/29/18at 16:45; Start 01/23/18 at 23:00 Labetalol HCl (Normodyne Iv Push) 20 mg PRN Q2HR PRN IVP HYPERTENSION, SEE COMMENTS Last administered on 01/24/18at 02:12; Start 01/24/18 at 00:45; Stop 01/25/18 at 14:21; Status DC Carvedilol (Coreg) 6.25 mg 1X ONCE PO ; Start 01/24/18 at 00:45; Stop at 00:49; Status DC Amlodipine Besylate (Norvasc) 5 mg 1X ONCE PO Last administered on 01/24/18at 01:00; Start 01/24/18 at 00:45; Stop 01/24/18 at 00:49; Status DC Oxycodone/ Acetaminophen (Percocet 5/325) 1 tab PRN Q4HRS PRN PO PAIN; Start 01/24/18 at 01:00 Carvedilol (Coreg) 12.5 mg 1X ONCE PO Last administered on 01/24/18at 01:05; Start 01/24/18 at 01:00; Stop 01/24/18 at 01:04; Status DC Nicardipine HCl 50 mg/Sodium Chloride 270 ml @ 32.4 mls/hr CONT PRN IV SEE I/ O RECORD Last administered on 01/27/18at 05:03; Start 01/24/18 at 03:00 Acetaminophen (Tylenol) 650 mg PRN Q6HRS PRN PEG MILD PAIN / TEMP; Start 01/24 at 03:15; Status Cancel Ondansetron HCl (Zofran) 4 mg PRN Q6HRS PRN IV NAUSEA/VOMITING, 1ST CHOICE Last administered on 01/26/18at 22:04; Start 01/24/18 at 03:15 Metoclopramide HCl (Reglan Vial) 5 mg PRN Q6HRS PRN IV NAUSEA/VOMITING, 3RD CHOICE Last administered on 01/25/18at 11:53; Start 01/24/18 at 03:15; Stop at 15:35; Status DC Prochlorperazine Edisylate (Compazine) 10 mg PRN Q6HRS PRN IV NAUSEA/VOMITING, 2ND CHOICE Last administered on 01/27/18at 06:31; Start 01/24/18 at 03:15 Pantoprazole Sodium (Protonix) 40 mg 1X ONCE PO Last administered on at 03:13; Start 01/24/18 at 03:30; Stop 01/24/18 at 03:31; Status DC Acetaminophen (Tylenol) 650 mg PRN Q6HRS PRN PO MIGRAINE HEADACHE Last administered on 01/27/18at 18:54; Start 01/24/18 at 03:15 Insulin Human Lispro (HumaLOG) 10 units 1X ONCE SQ Last administered on at 05:09; Start 01/24/18 at 05:00; Stop 01/24/18 at 05:02; Status DC Magnesium Sulfate/ Dextrose 100 ml @ 100 mls/hr 1X ONCE IV Last administered on 01/24/18at 12:01; Start 01/24/18 at 09:15; Stop 01/24/18 at 10:14; Status DC Metoprolol Tartrate (Lopressor Vial) 5 mg Q6HRS IVP Last administered on at 11:08; Start 01/24/18 at 11:00; Stop 01/25/18 at 11:41; Status DC Trimethobenzamide HCl (Tigan Im) 200 mg PRN Q6HRS PRN IM NAUSEA/VOMITING; Start 01/24/18 at 11:00 Morphine Sulfate (Morphine Sulfate) 2 mg PRN Q2HR PRN IV MODERATE PAIN; Start 01/24/18 at 11:00 Amlodipine Besylate (Norvasc) 5 mg DAILY PO Last administered on 01/31/18at 08: 53; Start 01/24/18 at 11:30 Clonidine HCl (Catapres) 0.2 mg BID PO Last administered on 01/31/18at 08:53; Start 01/24/18 at 11:30 Clopidogrel Bisulfate (Plavix) 75 mg DAILY PO Last administered on 01/31/18at 08 :52; Start 01/24/18 at 11:30 Insulin Glargine (Lantus) 4 units DAILYWBKFT SQ ; Start 01/24/18 at 11:30; Stop 01/24/18 at 11:30; Status DC Insulin Glargine (Lantus) 4 units QHS SQ ; Start 01/24/18 at 21:00; Status UNV Carvedilol (Coreg) 25 mg BIDWMEALS PO Last administered on 01/31/18at 08:52; Start 01/24/18 at 17:00 Non-Formulary Medication (Hydrochlorothiazide (Hydrochlorothiazide Capsule ) ) 10 mg BID PO ; Start 01/24/18 at 21:00; Stop 01/24/18 at 21:00; Status DC Mycophenolate Mofetil (Cellcept) 250 mg BID PO Last administered on 01/24/18at 12:01; Start 01/24/18 at 12:00; Stop 01/24/18 at 15:58; Status DC Pantoprazole Sodium (Protonix) 40 mg DAILYAC PO ; Start 01/24/18 at 11:30; Stop 01/24/18 at 12:01; Status DC Tacrolimus (Prograf) 2 mg BID PO Last administered on 01/24/18at 12:02; Start 01/24/18 at 12:00; Stop 01/24/18 at 13:07; Status DC Insulin Glargine (Lantus) 4 units BID SQ Last administered on 01/29/18at 09:27 ; Start 01/24/18 at 11:30; Stop 01/29/18 at 11:29; Status DC Pantoprazole Sodium (PROTONIX VIAL for IV PUSH) 40 mg DAILYAC IVP Last administered on 01/25/18at 09:34; Start 01/24/18 at 13:00; Stop 01/25/18 at 15 :35; Status DC Tacrolimus (Prograf) 4 mg DAILY PO ; Start 01/25/18 at 09:00; Stop 01/25/18 at 09:00; Status DC Tacrolimus (Prograf) 3 mg QHS PO ; Start 01/24/18 at 21:00; Stop 01/24/18 at 21:00; Status DC Tacrolimus (Prograf) 2 mg DAILY SL Last administered on 01/27/18at 07:59; Start 01/25/18 at 09:00; Stop 01/27/18 at 17:15; Status DC Tacrolimus (Prograf) 1 mg QHS SL Last administered on 01/26/18at 21:33; Start 01/24/18 at 21:00; Stop 01/27/18 at 17:13; Status DC Sodium Chloride (Saline Mist Nasal) 1 bryan PRN Q1HR PRN NS NASAL CONGESTION; Start 01/24/18 at 15:00; Stop 01/24/18 at 17:28; Status DC Gabapentin (Neurontin) 100 mg TID PO Last administered on 01/31/18at 08:52; Start 01/24/18 at 16:00 Mycophenolate Mofetil 250 mg/ Dextrose 42 ml @ 21 mls/hr Q12H IV Last administered on 01/27/18at 09:33; Start 01/24/18 at 21:00; Stop 01/27/18 at 14 :11; Status DC Tacrolimus (Prograf) 0.5 mg QHS SL Last administered on 01/26/18at 21:33; Start 01/24/18 at 21:00; Stop 01/27/18 at 17:13; Status DC Sodium Chloride (Saline Mist Nasal) 1 bryan PRN Q1HR PRN NS NASAL CONGESTION; Start 01/24/18 at 17:30 Sodium Chloride 1,000 ml @ 75 mls/hr [id number] IV ; Start 01/25/18 at 07:30; Stop 01/27/18 at 15:58; Status DC Fentanyl Citrate (Fentanyl 2ml Vial) 50 mcg PRN Q3HRS PRN IV SEVERE PAIN Last administered on 01/26/18at 22:05; Start 01/25/18 at 09:15 Sodium Chloride 1,000 ml @ 75 mls/hr [id number] IV Last administered on at 09:35; Start 01/25/18 at 09:15; Stop 01/27/18 at 15:58; Status DC Metoprolol Tartrate (Lopressor Vial) 7.5 mg Q6HRS IVP ; Start 01/25/18 at 18:00 ; Stop 01/25/18 at 18:00; Status DC Clonidine HCl (Catapres Tts-3) 1 patch WEEKLY TD Last administered on at 14:02; Start 01/25/18 at 13:00 Labetalol HCl (Normodyne Iv Push) 20 mg PRN Q4HRS PRN IVP HYPERTENSION, SEE COMMENTS Last administered on 01/31/18at 05:07; Start 01/25/18 at 13:00 Ringer's Solution 1,000 ml @ 30 mls/hr Q24H IV ; Start 01/25/18 at 15:15; Status Cancel Propofol 20 ml @ As Directed STK-MED ONCE IV ; Start 01/25/18 at 15:07; Stop 01/25/18 at 15:08; Status DC Lidocaine HCl (Xylocaine-Mpf 1% 2ml Vial) 2 ml STK-MED ONCE .ROUTE ; Start at 15:07; Stop 01/25/18 at 15:08; Status DC Sodium Chloride 1,000 ml @ 0 mls/hr Q0M IV Last administered on 01/25/18at 15: 13; Start 01/25/18 at 15:15; Stop 01/25/18 at 15:43; Status DC Metoclopramide HCl (Reglan Vial) 5 mg Q6HRS IV Last administered on 01/28/18at 06:02; Start 01/25/18 at 18:00; Stop 01/28/18 at 09:59; Status DC Pantoprazole Sodium (PROTONIX VIAL for IV PUSH) 40 mg BIDAC IVP Last administered on 01/28/18at 08:59; Start 01/25/18 at 16:30; Stop 01/28/18 at 09 :59; Status DC Levofloxacin/ Dextrose 100 ml @ 100 mls/hr Q24H IV ; Start 01/26/18 at 08:30; Stop 01/26/18 at 09:32; Status DC Levalbuterol HCl (Xopenex) 1.25 mg PRN Q6HRS PRN NEB SHORTNESS OF BREATH Last administered on 01/27/18at 12:19; Start 01/26/18 at 08:45 Piperacillin Sod/ Tazobactam Sod (Zosyn Per Pharmacy) 1 each PRN DAILY PRN MC SEE COMMENTS; Start 01/26/18 at 10:00; Stop 01/28/18 at 10:56; Status DC Furosemide (Lasix) 40 mg DAILY IVP Last administered on 01/28/18at 08:59; Start 01/26/18 at 10:30 Piperacillin Sod/ Tazobactam Sod 3.375 gm/Sodium Chloride 50 ml @ 100 mls/hr Q6HRS IV Last administered on 01/28/18at 06:03; Start 01/26/18 at 11:00; Stop 01/28/18 at 10:46; Status DC Linezolid/Dextrose 300 ml @ 300 mls/hr Q12HR IV Last administered on at 20:11; Start 01/27/18 at 10:00; Stop 01/30/18 at 08:30; Status DC Mycophenolate Mofetil (Cellcept) 250 mg BID PO Last administered on 01/31/18at 08:52; Start 01/27/18 at 21:00 Tacrolimus (Prograf) 3 mg QHS PO Last administered on 01/29/18at 20:10; Start 01/27/18 at 21:00; Stop 01/30/18 at 05:04; Status DC Tacrolimus (Prograf) 4 mg DAILY PO Last administered on 01/30/18at 08:18; Start 01/28/18 at 09:00; Stop 01/30/18 at 12:00; Status DC Doxycycline Hyclate (Vibra-Tab) 100 mg BID PO Last administered on 01/28/18at 09:06; Start 01/28/18 at 09:00; Stop 01/28/18 at 10:52; Status DC Metoclopramide HCl (Reglan Vial) 5 mg QIDACHS IV ; Start 01/28/18 at 11:30; Stop 01/28/18 at 11:30; Status DC Pantoprazole Sodium (Protonix) 40 mg BIDAC PO Last administered on 01/31/18at 08 :52; Start 01/28/18 at 10:30 Metoclopramide HCl (Reglan Oral Solution) 5 mg QIDACHS PO Last administered on 01/31/18at 12:06; Start 01/28/18 at 11:30 Cefepime HCl 1 gm/ Dextrose 50 ml @ 100 mls/hr DAILY IV ; Start 01/29/18 at 09 :00; Status UNV Cefepime HCl (Maxipime) 1 gm DAILY IVP Last administered on 01/31/18at 08:51; Start 01/28/18 at 12:00 Insulin Human Lispro (HumaLOG) 20 units 1X ONCE SQ Last administered on at 04:39; Start 01/29/18 at 05:00; Stop 01/29/18 at 05:01; Status DC Insulin Glargine (Lantus) 20 units TID SQ ; Start 01/29/18 at 14:00; Stop at 14:00; Status DC Insulin Human Lispro (HumaLOG) 10 units TIDAC SQ Last administered on at 12:24; Start 01/29/18 at 11:30; Stop 01/29/18 at 17:48; Status DC Insulin Glargine (Lantus) 20 units QHS SQ Last administered on 01/30/18at 21:00 ; Start 01/29/18 at 21:00 Docusate Sodium (Colace) 100 mg PRN DAILY PRN PO HARD STOOLS Last administered on 01/30/18at 08:16; Start 01/29/18 at 11:45 Polyethylene Glycol (miraLAX PACKET) 17 gm PRN DAILY PRN PO CONSTIPATION Last administered on 01/30/18at 08:20; Start 01/29/18 at 11:45 Insulin Human Lispro (HumaLOG) 6 units TIDAC SQ Last administered on 01/31/18at 12:10; Start 01/30/18 at 07:30 Tacrolimus (Prograf) 3 mg QHS PO Last administered on 01/30/18at 19:59; Start 01/30/18 at 21:00 Tacrolimus (Prograf) 4 mg DAILY PO Last administered on 01/31/18at 08:52; Start 01/31/18 at 09:00 Potassium Chloride (Klor-Con) 40 meq 1X ONCE PO Last administered on at 13:56; Start 01/30/18 at 13:30; Stop 01/30/18 at 13:31; Status DC Magnesium Citrate (Citroma) 296 ml PRN 1X PRN PO CONSTIPATION; Start 01/30/18 at 13:15 Bisacodyl (Dulcolax Supp) 10 mg PRN DAILY PRN NC CONSTIPATION; Start 01/30/18 at 13:15 Darbepoetin Jd (Aranesp) 100 mcg 1X ONCE SQ Last administered on 01/31/18at 10:46; Start 01/31/18 at 09:00; Stop 01/31/18 at 09:01; Status DC Active Scripts Active Oxycodone-Acetaminophen 5-325 (Oxycodone Hcl/Acetaminophen) 1 Each Tablet 1 Tab PO PRN Q4HRS PRN Reported Prograf (Tacrolimus) 1 Mg Capsule 3 Cap PO QHS Prograf (Tacrolimus) 1 Mg Capsule 4 Cap PO DAILY Lantus Solostar (Insulin Glargine,Hum.rec.anlog) 100 Unit/1 Ml Insuln.pen 4 Unit SQ DAILYWBKFT Lantus Solostar (Insulin Glargine,Hum.rec.anlog) 100 Unit/1 Ml Insuln.pen 4 Unit SQ QHS Amlodipine Besylate 5 Mg Tablet 5 Mg PO DAILY Clonidine Hcl 0.2 Mg Tablet 1 Tab PO BID Clopidogrel (Clopidogrel Bisulfate) 75 Mg Tablet 1 Tab PO DAILY Cellcept (Mycophenolate Mofetil) 250 Mg Capsule 1 Cap PO BID Pantoprazole Sodium 20 Mg Tablet.dr 20 Mg PO DAILY Hydrochlorothiazide Capsule (Hydrochlorothiazide) 12.5 Mg Capsule 10 Mg PO BID Carvedilol 25 Mg Tablet 2 Tab PO DAILYBFRSUP Vitals/I & O Vital Sign - Last 24 Hours 01/30/18 01/30/18 01/30/18 01/30/18 14:40 17:04 19:37 20:00 Temp 99.1 99.3 99.1 99.3 Pulse 84 84 86 86 Resp 16 18 B/P (MAP) 147/70 (95) 147/70 185/59 (101) 185/59 Pulse Ox 100 99 O2 Delivery Nasal Cannula Nasal Cannula O2 Flow Rate 4.0 2.0 01/30/18 01/30/18 01/31/18 01/31/18 20:03 23:00 00:49 03:00 Temp 99.3 99.3 99.3 99.3 99.3 99.3 Pulse 86 87 85 B/P (MAP) 185/59 (101) 154/70 (98) 193/81 (118) Pulse Ox 99 99 99 O2 Delivery Nasal Cannula Nasal Cannula Nasal Cannula Nasal Cannula O2 Flow Rate 2.0 2.0 2.0 01/31/18 01/31/18 01/31/18 01/31/18 05:07 06:51 08:00 08:52 Pulse 88 87 87 B/P (MAP) 193/81 152/80 (104) 152/80 O2 Delivery Nasal Cannula O2 Flow Rate 4.0 01/31/18 01/31/18 01/31/18 08:53 08:53 11:00 Temp 99.1 99.1 Pulse 87 87 86 Resp 20 B/P (MAP) 152/80 152/80 156/71 (99) Pulse Ox 100 O2 Delivery Nasal Cannula O2 Flow Rate 3.0 Intake and Output 01/30/18 01/30/18 01/31/18 15:00 23:00 07:00 Intake Total 120 ml 640 ml 800 ml Output Total 550 ml 826 ml Balance 120 ml 90 ml -26 ml NYASIA SHEPPARD III DO Jan 31, 2018 14:13
[2018-01-31] MEDS: INSULIN GLARGINE 300 UNITS/3 ML INSULN.PEN. SQ SCH (21:11)
[2018-02-01] VITALS (7 sets, daily range): BP systolic 145–180; BP diastolic 63–85
[2018-02-01] MEDS: DEXTROSE 50% 25 GM / 50ML DISP.SYRIN. IV PRN (03:26)
[2018-02-01 05:23] LABS: BASO % 0 % (0-3); EOS # 0.2 x10^3/uL (0.0-0.7); EOS % 3 % (0-3); HEMATOCRIT 21.1 % (39.0-53.0); HEMOGLOBIN 7.5 g/dL (13.0-17.5); LYMPH # 1.2 x10^3/uL (1.0-4.8); LYMPH % 22 % (24-48); MEAN CORPUSCULAR HEMOGLOBIN 31 pg (25-35); MEAN CORPUSCULAR HGB CONC 36 g/dL (31-37); MEAN CORPUSCULAR VOLUME 87 fL (79-100); MONO # 0.7 x10^3/uL (0.0-1.1); MONO % 13 % (0-9); NEUT # 3.2 x10^3uL (1.8-7.7); NEUT % 61 % (31-73); PLATELET COUNT 304 x10^3/uL (140-400); RED BLOOD COUNT 2.43 x10^6/uL (4.30-5.70); WHITE BLOOD COUNT 5.2 x10^3/uL (4.0-11.0)
[2018-02-01 05:33] LABS: CALCIUM 8.8 mg/dL (8.5-10.1); CREATININE 2.7 mg/dL (0.7-1.3); GFR 25.1; POTASSIUM 3.4 mmol/L (3.5-5.1)
[2018-02-01] MEDS: INSULIN LISPRO 300 UNITS/3 ML INSULN.PEN. SQ SCH ×6 (07:30→16:57)
--- NOTE | 2018-02-01 09:06 | PDOC ---
PROGRESS NOTES Assessment Problems Medical Problems: (1) Hypertensive urgency Status: Acute (2) Intractable nausea and vomiting Status: Acute (3) Migraine headache Status: Acute Cluster headache. Hypertensive emergency, SBP 229 mmHg. Left LL pneumonia and pleural effusion. 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 No evidence of acute CVA Plan BP control. Pain control. Neurontin 100 mg tid. Treat medical diseases. Neurology will follow along loosely as headache is resolved Subjective Denies headache Objective Vital Signs Date Time Temp Pulse Resp B/P (MAP) Pulse Ox O2 Delivery O2 Flow Rate FiO2 02/01/18 07:00 98.7 85 16 145/81 (102) 98 Room Air 98.7 01/31/18 11:00 3.0 Intake and Output 02/01/18 07:00 Intake Total 820 ml Output Total 500 ml Balance 320 ml Intake Oral 820 ml Output Urine Total 500 ml # Bowel Movements 2 PHYSICAL EXAM Alert. Oriented to time, place and person. Right people reactive, left prosthetic eye EOMI. CN: no focal findings. Muscle tone: normal. Muscle strength: 5/5 DTR: 2+ arms, 1+ legs Plantar reflex: has bilateral below the knee amputations Gait: not examined in bed. Sensory exam: no abnormal findings. No cerebellar signs elicited. Review of Relevant I have reviewed the following items nadiya (where applicable) has been applied. Labs Laboratory Tests Test 01/30/18 09:05 01/30/18 11:23 01/30/18 16:22 01/30/18 16:48 White Blood Count 5.9 x10^3/uL (4.0-11.0) Red Blood Count 2.56 x10^6/uL (4.30-5.70) Hemoglobin 7.9 g/dL (13.0-17.5) Hematocrit 22.4 % (39.0-53.0) Mean Corpuscular Volume 88 fL (79-100) Mean Corpuscular Hemoglobin 31 pg (25-35) Mean Corpuscular Hemoglobin Concent 35 g/dL (31-37) Red Cell Distribution Width 13.2 % (11.5-14.5) Platelet Count 327 x10^3/uL (140-400) Neutrophils (%) (Auto) 77 % (31-73) Lymphocytes (%) (Auto) 13 % (24-48) Monocytes (%) (Auto) 8 % (0-9) Eosinophils (%) (Auto) 2 % (0-3) Basophils (%) (Auto) 0 % (0-3) Neutrophils # (Auto) 4.5 x10^3uL (1.8-7.7) Lymphocytes # (Auto) 0.8 x10^3/uL (1.0-4.8) Monocytes # (Auto) 0.5 x10^3/uL (0.0-1.1) Eosinophils # (Auto) 0.1 x10^3/uL (0.0-0.7) Basophils # (Auto) 0.0 x10^3/uL (0.0-0.2) Sodium Level 136 mmol/L (136-145) Potassium Level 3.2 mmol/L (3.5-5.1) Chloride Level 103 mmol/L (98-107) Carbon Dioxide Level 21 mmol/L (21-32) Anion Gap 12 (6-14) Blood Urea Nitrogen 45 mg/dL (8-26) Creatinine 4.4 mg/dL (0.7-1.3) Estimated GFR (Cockcroft-Gault) 14.3 Glucose Level 301 mg/dL (70-99) Calcium Level 8.8 mg/dL (8.5-10.1) Glucose (Fingerstick) 197 mg/dL (70-99) 47 mg/dL (70-99) 86 mg/dL (70-99) Test 01/30/18 20:27 01/30/18 23:27 01/31/18 03:40 01/31/18 07:58 Glucose (Fingerstick) 159 mg/dL (70-99) 259 mg/dL (70-99) 139 mg/dL (70-99) White Blood Count 5.2 x10^3/uL (4.0-11.0) Red Blood Count 2.30 x10^6/uL (4.30-5.70) Hemoglobin 7.0 g/dL (13.0-17.5) Hematocrit 20.0 % (39.0-53.0) Mean Corpuscular Volume 87 fL (79-100) Mean Corpuscular Hemoglobin 31 pg (25-35) Mean Corpuscular Hemoglobin Concent 35 g/dL (31-37) Red Cell Distribution Width 13.1 % (11.5-14.5) Platelet Count 328 x10^3/uL (140-400) Neutrophils (%) (Auto) 66 % (31-73) Lymphocytes (%) (Auto) 21 % (24-48) Monocytes (%) (Auto) 11 % (0-9) Eosinophils (%) (Auto) 3 % (0-3) Basophils (%) (Auto) 0 % (0-3) Neutrophils # (Auto) 3.4 x10^3uL (1.8-7.7) Lymphocytes # (Auto) 1.1 x10^3/uL (1.0-4.8) Monocytes # (Auto) 0.5 x10^3/uL (0.0-1.1) Eosinophils # (Auto) 0.1 x10^3/uL (0.0-0.7) Basophils # (Auto) 0.0 x10^3/uL (0.0-0.2) Sodium Level 139 mmol/L (136-145) Potassium Level 4.0 mmol/L (3.5-5.1) Chloride Level 106 mmol/L (98-107) Carbon Dioxide Level 22 mmol/L (21-32) Anion Gap 11 (6-14) Blood Urea Nitrogen 41 mg/dL (8-26) Creatinine 3.6 mg/dL (0.7-1.3) Estimated GFR (Cockcroft-Gault) 18.0 Glucose Level 217 mg/dL (70-99) Calcium Level 8.6 mg/dL (8.5-10.1) Test 01/31/18 11:57 01/31/18 16:47 01/31/18 20:32 02/01/18 03:19 Glucose (Fingerstick) 185 mg/dL (70-99) 62 mg/dL (70-99) 198 mg/dL (70-99) 34 mg/dL (70-99) Test 02/01/18 03:33 02/01/18 04:45 02/01/18 07:19 02/01/18 08:31 Glucose (Fingerstick) 190 mg/dL (70-99) 68 mg/dL (70-99) 78 mg/dL (70-99) White Blood Count 5.2 x10^3/uL (4.0-11.0) Red Blood Count 2.43 x10^6/uL (4.30-5.70) Hemoglobin 7.5 g/dL (13.0-17.5) Hematocrit 21.1 % (39.0-53.0) Mean Corpuscular Volume 87 fL (79-100) Mean Corpuscular Hemoglobin 31 pg (25-35) Mean Corpuscular Hemoglobin Concent 36 g/dL (31-37) Red Cell Distribution Width 13.0 % (11.5-14.5) Platelet Count 304 x10^3/uL (140-400) Neutrophils (%) (Auto) 61 % (31-73) Lymphocytes (%) (Auto) 22 % (24-48) Monocytes (%) (Auto) 13 % (0-9) Eosinophils (%) (Auto) 3 % (0-3) Basophils (%) (Auto) 0 % (0-3) Neutrophils # (Auto) 3.2 x10^3uL (1.8-7.7) Lymphocytes # (Auto) 1.2 x10^3/uL (1.0-4.8) Monocytes # (Auto) 0.7 x10^3/uL (0.0-1.1) Eosinophils # (Auto) 0.2 x10^3/uL (0.0-0.7) Basophils # (Auto) 0.0 x10^3/uL (0.0-0.2) Sodium Level 142 mmol/L (136-145) Potassium Level 3.4 mmol/L (3.5-5.1) Chloride Level 108 mmol/L (98-107) Carbon Dioxide Level 23 mmol/L (21-32) Anion Gap 11 (6-14) Blood Urea Nitrogen 29 mg/dL (8-26) Creatinine 2.7 mg/dL (0.7-1.3) Estimated GFR (Cockcroft-Gault) 25.1 Glucose Level 128 mg/dL (70-99) Calcium Level 8.8 mg/dL (8.5-10.1) Laboratory Tests Test 01/31/18 11:57 01/31/18 16:47 01/31/18 20:32 02/01/18 03:19 Glucose (Fingerstick) 185 mg/dL (70-99) 62 mg/dL (70-99) 198 mg/dL (70-99) 34 mg/dL (70-99) Test 02/01/18 03:33 02/01/18 04:45 02/01/18 07:19 02/01/18 08:31 Glucose (Fingerstick) 190 mg/dL (70-99) 68 mg/dL (70-99) 78 mg/dL (70-99) White Blood Count 5.2 x10^3/uL (4.0-11.0) Red Blood Count 2.43 x10^6/uL (4.30-5.70) Hemoglobin 7.5 g/dL (13.0-17.5) Hematocrit 21.1 % (39.0-53.0) Mean Corpuscular Volume 87 fL (79-100) Mean Corpuscular Hemoglobin 31 pg (25-35) Mean Corpuscular Hemoglobin Concent 36 g/dL (31-37) Red Cell Distribution Width 13.0 % (11.5-14.5) Platelet Count 304 x10^3/uL (140-400) Neutrophils (%) (Auto) 61 % (31-73) Lymphocytes (%) (Auto) 22 % (24-48) Monocytes (%) (Auto) 13 % (0-9) Eosinophils (%) (Auto) 3 % (0-3) Basophils (%) (Auto) 0 % (0-3) Neutrophils # (Auto) 3.2 x10^3uL (1.8-7.7) Lymphocytes # (Auto) 1.2 x10^3/uL (1.0-4.8) Monocytes # (Auto) 0.7 x10^3/uL (0.0-1.1) Eosinophils # (Auto) 0.2 x10^3/uL (0.0-0.7) Basophils # (Auto) 0.0 x10^3/uL (0.0-0.2) Sodium Level 142 mmol/L (136-145) Potassium Level 3.4 mmol/L (3.5-5.1) Chloride Level 108 mmol/L (98-107) Carbon Dioxide Level 23 mmol/L (21-32) Anion Gap 11 (6-14) Blood Urea Nitrogen 29 mg/dL (8-26) Creatinine 2.7 mg/dL (0.7-1.3) Estimated GFR (Cockcroft-Gault) 25.1 Glucose Level 128 mg/dL (70-99) Calcium Level 8.8 mg/dL (8.5-10.1) Microbiology 01/26/18 Blood Culture - Final, Complete NO GROWTH AFTER 5 DAYS 01/28/18 - Final, Complete 01/28/18 - Final, Complete 01/28/18 - Final, Complete 01/28/18 - Final, Complete 01/28/18 - Final, Complete 01/28/18 Gram Stain Evaluation - Final, Complete 01/28/18 Sputum Culture - Final, Complete 01/27/18 Urine Culture - Final, Complete 01/27/18 Urine Culture Result 1 ([place]) - Final, Complete Medications Current Medications Sodium Chloride 1,000 ml @ 1,000 mls/hr Q1H IV Last administered on at 17:54; Start 01/23/18 at 17:21; Stop 01/23/18 at 18:20; Status DC Prochlorperazine Edisylate (Compazine) 10 mg 1X ONCE IV Last administered on 01/23/18at 17:55; Start 01/23/18 at 17:30; Stop 01/23/18 at 17:31; Status DC Diphenhydramine HCl (Benadryl) 25 mg 1X ONCE IVP Last administered on at 17:57; Start 01/23/18 at 17:30; Stop 01/23/18 at 17:31; Status DC Metoclopramide HCl (Reglan Vial) 10 mg 1X ONCE IV Last administered on at 19:24; Start 01/23/18 at 19:15; Stop 01/23/18 at 19:17; Status DC Diphenhydramine HCl (Benadryl) 25 mg 1X ONCE IVP Last administered on at 19:25; Start 01/23/18 at 19:15; Stop 01/23/18 at 19:17; Status DC Metoprolol Tartrate (Lopressor Vial) 5 mg 1X ONCE IVP Last administered on at 19:55; Start 01/23/18 at 19:45; Stop 01/23/18 at 19:46; Status DC Insulin Human Regular (HumuLIN R VIAL) 5 unit 1X ONCE IV Last administered on 01/23/18at 19:55; Start 01/23/18 at 19:45; Stop 01/23/18 at 19:46; Status DC Labetalol HCl (Normodyne Iv Push) 10 mg 1X ONCE IVP ; Start 01/23/18 at 20:30 ; Stop 01/23/18 at 20:31; Status DC Labetalol HCl (Normodyne Iv Push) 10 mg 1X ONCE IVP Last administered on 01/23at 22:29; Start 01/23/18 at 22:00; Stop 01/23/18 at 22:04; Status DC Ondansetron HCl (Zofran) 4 mg PRN Q8HRS PRN IV NAUSEA/VOMITING Last administered on 01/24/18at 00:16; Start 01/23/18 at 22:45; Stop 01/24/18 at 03 :05; Status DC Fentanyl Citrate (Fentanyl 2ml Vial) 50 mcg PRN Q2HR PRN IV PAIN Last administered on 01/24/18at 19:48; Start 01/23/18 at 22:45; Stop 01/24/18 at 22 :44; Status DC Sodium Chloride 1,000 ml @ 100 mls/hr Q10H IV Last administered on 01/24/18at 19:56; Start 01/23/18 at 22:37; Stop 01/24/18 at 22:36; Status DC Labetalol HCl (Normodyne Iv Push) 10 mg PRN Q30MIN PRN IVP SBP>180 Last administered on 01/24/18at 00:07; Start 01/23/18 at 22:45; Stop 01/24/18 at 00 :49; Status DC Insulin Human Lispro (HumaLOG) 0-5 UNITS TIDWMEALS SQ Last administered on at 11:46; Start 01/24/18 at 08:00 Dextrose (Dextrose 50%-Water Syringe) 12.5 gm PRN Q15MIN PRN IV SEE COMMENTS Last administered on 02/01/18at 03:26; Start 01/23/18 at 23:00 Labetalol HCl (Normodyne Iv Push) 20 mg PRN Q2HR PRN IVP HYPERTENSION, SEE COMMENTS Last administered on 01/24/18at 02:12; Start 01/24/18 at 00:45; Stop 01/25/18 at 14:21; Status DC Carvedilol (Coreg) 6.25 mg 1X ONCE PO ; Start 01/24/18 at 00:45; Stop at 00:49; Status DC Amlodipine Besylate (Norvasc) 5 mg 1X ONCE PO Last administered on 01/24/18at 01:00; Start 01/24/18 at 00:45; Stop 01/24/18 at 00:49; Status DC Oxycodone/ Acetaminophen (Percocet 5/325) 1 tab PRN Q4HRS PRN PO PAIN; Start 01/24/18 at 01:00 Carvedilol (Coreg) 12.5 mg 1X ONCE PO Last administered on 01/24/18at 01:05; Start 01/24/18 at 01:00; Stop 01/24/18 at 01:04; Status DC Nicardipine HCl 50 mg/Sodium Chloride 270 ml @ 32.4 mls/hr CONT PRN IV SEE I/ O RECORD Last administered on 01/27/18at 05:03; Start 01/24/18 at 03:00 Acetaminophen (Tylenol) 650 mg PRN Q6HRS PRN PEG MILD PAIN / TEMP; Start 01/24 at 03:15; Status Cancel Ondansetron HCl (Zofran) 4 mg PRN Q6HRS PRN IV NAUSEA/VOMITING, 1ST CHOICE Last administered on 01/26/18at 22:04; Start 01/24/18 at 03:15 Metoclopramide HCl (Reglan Vial) 5 mg PRN Q6HRS PRN IV NAUSEA/VOMITING, 3RD CHOICE Last administered on 01/25/18at 11:53; Start 01/24/18 at 03:15; Stop at 15:35; Status DC Prochlorperazine Edisylate (Compazine) 10 mg PRN Q6HRS PRN IV NAUSEA/VOMITING, 2ND CHOICE Last administered on 01/27/18at 06:31; Start 01/24/18 at 03:15 Pantoprazole Sodium (Protonix) 40 mg 1X ONCE PO Last administered on at 03:13; Start 01/24/18 at 03:30; Stop 01/24/18 at 03:31; Status DC Acetaminophen (Tylenol) 650 mg PRN Q6HRS PRN PO MIGRAINE HEADACHE Last administered on 01/27/18at 18:54; Start 01/24/18 at 03:15 Insulin Human Lispro (HumaLOG) 10 units 1X ONCE SQ Last administered on at 05:09; Start 01/24/18 at 05:00; Stop 01/24/18 at 05:02; Status DC Magnesium Sulfate/ Dextrose 100 ml @ 100 mls/hr 1X ONCE IV Last administered on 01/24/18at 12:01; Start 01/24/18 at 09:15; Stop 01/24/18 at 10:14; Status DC Metoprolol Tartrate (Lopressor Vial) 5 mg Q6HRS IVP Last administered on at 11:08; Start 01/24/18 at 11:00; Stop 01/25/18 at 11:41; Status DC Trimethobenzamide HCl (Tigan Im) 200 mg PRN Q6HRS PRN IM NAUSEA/VOMITING; Start 01/24/18 at 11:00 Morphine Sulfate (Morphine Sulfate) 2 mg PRN Q2HR PRN IV MODERATE PAIN; Start 01/24/18 at 11:00 Amlodipine Besylate (Norvasc) 5 mg DAILY PO Last administered on 01/31/18at 08: 53; Start 01/24/18 at 11:30 Clonidine HCl (Catapres) 0.2 mg BID PO Last administered on 01/31/18at 21:16; Start 01/24/18 at 11:30 Clopidogrel Bisulfate (Plavix) 75 mg DAILY PO Last administered on 01/31/18at 08 :52; Start 01/24/18 at 11:30 Insulin Glargine (Lantus) 4 units DAILYWBKFT SQ ; Start 01/24/18 at 11:30; Stop 01/24/18 at 11:30; Status DC Insulin Glargine (Lantus) 4 units QHS SQ ; Start 01/24/18 at 21:00; Status UNV Carvedilol (Coreg) 25 mg BIDWMEALS PO Last administered on 01/31/18at 17:39; Start 01/24/18 at 17:00 Non-Formulary Medication (Hydrochlorothiazide (Hydrochlorothiazide Capsule ) ) 10 mg BID PO ; Start 01/24/18 at 21:00; Stop 01/24/18 at 21:00; Status DC Mycophenolate Mofetil (Cellcept) 250 mg BID PO Last administered on 01/24/18at 12:01; Start 01/24/18 at 12:00; Stop 01/24/18 at 15:58; Status DC Pantoprazole Sodium (Protonix) 40 mg DAILYAC PO ; Start 01/24/18 at 11:30; Stop 01/24/18 at 12:01; Status DC Tacrolimus (Prograf) 2 mg BID PO Last administered on 01/24/18at 12:02; Start 01/24/18 at 12:00; Stop 01/24/18 at 13:07; Status DC Insulin Glargine (Lantus) 4 units BID SQ Last administered on 01/29/18at 09:27 ; Start 01/24/18 at 11:30; Stop 01/29/18 at 11:29; Status DC Pantoprazole Sodium (PROTONIX VIAL for IV PUSH) 40 mg DAILYAC IVP Last administered on 01/25/18at 09:34; Start 01/24/18 at 13:00; Stop 01/25/18 at 15 :35; Status DC Tacrolimus (Prograf) 4 mg DAILY PO ; Start 01/25/18 at 09:00; Stop 01/25/18 at 09:00; Status DC Tacrolimus (Prograf) 3 mg QHS PO ; Start 01/24/18 at 21:00; Stop 01/24/18 at 21:00; Status DC Tacrolimus (Prograf) 2 mg DAILY SL Last administered on 01/27/18at 07:59; Start 01/25/18 at 09:00; Stop 01/27/18 at 17:15; Status DC Tacrolimus (Prograf) 1 mg QHS SL Last administered on 01/26/18at 21:33; Start 01/24/18 at 21:00; Stop 01/27/18 at 17:13; Status DC Sodium Chloride (Saline Mist Nasal) 1 bryan PRN Q1HR PRN NS NASAL CONGESTION; Start 01/24/18 at 15:00; Stop 01/24/18 at 17:28; Status DC Gabapentin (Neurontin) 100 mg TID PO Last administered on 01/31/18at 21:11; Start 01/24/18 at 16:00 Mycophenolate Mofetil 250 mg/ Dextrose 42 ml @ 21 mls/hr Q12H IV Last administered on 01/27/18at 09:33; Start 01/24/18 at 21:00; Stop 01/27/18 at 14 :11; Status DC Tacrolimus (Prograf) 0.5 mg QHS SL Last administered on 01/26/18at 21:33; Start 01/24/18 at 21:00; Stop 01/27/18 at 17:13; Status DC Sodium Chloride (Saline Mist Nasal) 1 bryan PRN Q1HR PRN NS NASAL CONGESTION; Start 01/24/18 at 17:30 Sodium Chloride 1,000 ml @ 75 mls/hr [id number] IV ; Start 01/25/18 at 07:30; Stop 01/27/18 at 15:58; Status DC Fentanyl Citrate (Fentanyl 2ml Vial) 50 mcg PRN Q3HRS PRN IV SEVERE PAIN Last administered on 01/26/18at 22:05; Start 01/25/18 at 09:15 Sodium Chloride 1,000 ml @ 75 mls/hr [id number] IV Last administered on at 09:35; Start 01/25/18 at 09:15; Stop 01/27/18 at 15:58; Status DC Metoprolol Tartrate (Lopressor Vial) 7.5 mg Q6HRS IVP ; Start 01/25/18 at 18:00 ; Stop 01/25/18 at 18:00; Status DC Clonidine HCl (Catapres Tts-3) 1 patch WEEKLY TD Last administered on at 14:02; Start 01/25/18 at 13:00 Labetalol HCl (Normodyne Iv Push) 20 mg PRN Q4HRS PRN IVP HYPERTENSION, SEE COMMENTS Last administered on 01/31/18at 05:07; Start 01/25/18 at 13:00 Ringer's Solution 1,000 ml @ 30 mls/hr Q24H IV ; Start 01/25/18 at 15:15; Status Cancel Propofol 20 ml @ As Directed STK-MED ONCE IV ; Start 01/25/18 at 15:07; Stop 01/25/18 at 15:08; Status DC Lidocaine HCl (Xylocaine-Mpf 1% 2ml Vial) 2 ml STK-MED ONCE .ROUTE ; Start at 15:07; Stop 01/25/18 at 15:08; Status DC Sodium Chloride 1,000 ml @ 0 mls/hr Q0M IV Last administered on 01/25/18at 15: 13; Start 01/25/18 at 15:15; Stop 01/25/18 at 15:43; Status DC Metoclopramide HCl (Reglan Vial) 5 mg Q6HRS IV Last administered on 01/28/18at 06:02; Start 01/25/18 at 18:00; Stop 01/28/18 at 09:59; Status DC Pantoprazole Sodium (PROTONIX VIAL for IV PUSH) 40 mg BIDAC IVP Last administered on 01/28/18at 08:59; Start 01/25/18 at 16:30; Stop 01/28/18 at 09 :59; Status DC Levofloxacin/ Dextrose 100 ml @ 100 mls/hr Q24H IV ; Start 01/26/18 at 08:30; Stop 01/26/18 at 09:32; Status DC Levalbuterol HCl (Xopenex) 1.25 mg PRN Q6HRS PRN NEB SHORTNESS OF BREATH Last administered on 01/27/18at 12:19; Start 01/26/18 at 08:45 Piperacillin Sod/ Tazobactam Sod (Zosyn Per Pharmacy) 1 each PRN DAILY PRN MC SEE COMMENTS; Start 01/26/18 at 10:00; Stop 01/28/18 at 10:56; Status DC Furosemide (Lasix) 40 mg DAILY IVP Last administered on 01/28/18at 08:59; Start 01/26/18 at 10:30; Stop 01/31/18 at 15:53; Status DC Piperacillin Sod/ Tazobactam Sod 3.375 gm/Sodium Chloride 50 ml @ 100 mls/hr Q6HRS IV Last administered on 01/28/18at 06:03; Start 01/26/18 at 11:00; Stop 01/28/18 at 10:46; Status DC Linezolid/Dextrose 300 ml @ 300 mls/hr Q12HR IV Last administered on at 20:11; Start 01/27/18 at 10:00; Stop 01/30/18 at 08:30; Status DC Mycophenolate Mofetil (Cellcept) 250 mg BID PO Last administered on 01/31/18at 21:11; Start 01/27/18 at 21:00 Tacrolimus (Prograf) 3 mg QHS PO Last administered on 01/29/18at 20:10; Start 01/27/18 at 21:00; Stop 01/30/18 at 05:04; Status DC Tacrolimus (Prograf) 4 mg DAILY PO Last administered on 01/30/18at 08:18; Start 01/28/18 at 09:00; Stop 01/30/18 at 12:00; Status DC Doxycycline Hyclate (Vibra-Tab) 100 mg BID PO Last administered on 01/28/18at 09:06; Start 01/28/18 at 09:00; Stop 01/28/18 at 10:52; Status DC Metoclopramide HCl (Reglan Vial) 5 mg QIDACHS IV ; Start 01/28/18 at 11:30; Stop 01/28/18 at 11:30; Status DC Pantoprazole Sodium (Protonix) 40 mg BIDAC PO Last administered on 01/31/18at 17 :38; Start 01/28/18 at 10:30 Metoclopramide HCl (Reglan Oral Solution) 5 mg QIDACHS PO Last administered on 01/31/18at 21:11; Start 01/28/18 at 11:30 Cefepime HCl 1 gm/ Dextrose 50 ml @ 100 mls/hr DAILY IV ; Start 01/29/18 at 09 :00; Status UNV Cefepime HCl (Maxipime) 1 gm DAILY IVP Last administered on 01/31/18at 08:51; Start 01/28/18 at 12:00 Insulin Human Lispro (HumaLOG) 20 units 1X ONCE SQ Last administered on at 04:39; Start 01/29/18 at 05:00; Stop 01/29/18 at 05:01; Status DC Insulin Glargine (Lantus) 20 units TID SQ ; Start 01/29/18 at 14:00; Stop at 14:00; Status DC Insulin Human Lispro (HumaLOG) 10 units TIDAC SQ Last administered on at 12:24; Start 01/29/18 at 11:30; Stop 01/29/18 at 17:48; Status DC Insulin Glargine (Lantus) 20 units QHS SQ Last administered on 01/30/18at 21:00 ; Start 01/29/18 at 21:00; Stop 01/31/18 at 20:57; Status DC Docusate Sodium (Colace) 100 mg PRN DAILY PRN PO HARD STOOLS Last administered on 01/30/18at 08:16; Start 01/29/18 at 11:45 Polyethylene Glycol (miraLAX PACKET) 17 gm PRN DAILY PRN PO CONSTIPATION Last administered on 01/30/18at 08:20; Start 01/29/18 at 11:45 Insulin Human Lispro (HumaLOG) 6 units TIDAC SQ Last administered on 01/31/18at 12:10; Start 01/30/18 at 07:30 Tacrolimus (Prograf) 3 mg QHS PO Last administered on 01/31/18at 21:11; Start 01/30/18 at 21:00 Tacrolimus (Prograf) 4 mg DAILY PO Last administered on 01/31/18at 08:52; Start 01/31/18 at 09:00 Potassium Chloride (Klor-Con) 40 meq 1X ONCE PO Last administered on at 13:56; Start 01/30/18 at 13:30; Stop 01/30/18 at 13:31; Status DC Magnesium Citrate (Citroma) 296 ml PRN 1X PRN PO CONSTIPATION; Start 01/30/18 at 13:15 Bisacodyl (Dulcolax Supp) 10 mg PRN DAILY PRN [place] CONSTIPATION; Start 01/30/18 at 13:15 Darbepoetin Jd (Aranesp) 100 mcg 1X ONCE SQ Last administered on 01/31/18at 10:46; Start 01/31/18 at 09:00; Stop 01/31/18 at 09:01; Status DC Diphenhydramine HCl (Benadryl) 12.5 mg QHS PRN IVP ITCHING; Start 01/31/18 at 19:15 Insulin Glargine (Lantus) 10 units QHS SQ Last administered on 01/31/18at 21:11 ; Start 01/31/18 at 21:00 Active Scripts Active Oxycodone-Acetaminophen 5-325 (Oxycodone Hcl/Acetaminophen) 1 Each Tablet 1 Tab PO PRN Q4HRS PRN Reported Prograf (Tacrolimus) 1 Mg Capsule 3 Cap PO QHS Prograf (Tacrolimus) 1 Mg Capsule 4 Cap PO DAILY Lantus Solostar (Insulin Glargine,Hum.rec.anlog) 100 Unit/1 Ml Insuln.pen 4 Unit SQ DAILYWBKFT Lantus Solostar (Insulin Glargine,Hum.rec.anlog) 100 Unit/1 Ml Insuln.pen 4 Unit SQ QHS Amlodipine Besylate 5 Mg Tablet 5 Mg PO DAILY Clonidine Hcl 0.2 Mg Tablet 1 Tab PO BID Clopidogrel (Clopidogrel Bisulfate) 75 Mg Tablet 1 Tab PO DAILY Cellcept (Mycophenolate Mofetil) 250 Mg Capsule 1 Cap PO BID Pantoprazole Sodium 20 Mg Tablet.dr 20 Mg PO DAILY Hydrochlorothiazide Capsule (Hydrochlorothiazide) 12.5 Mg Capsule 10 Mg PO BID Carvedilol 25 Mg Tablet 2 Tab PO DAILYBFRSUP Vitals/I & O Vital Sign - Last 24 Hours 01/31/18 01/31/18 01/31/18 01/31/18 11:00 15:00 17:39 19:05 Temp 99.1 98.2 99.3 99.1 98.2 99.3 Pulse 86 83 83 91 Resp 20 20 19 B/P (MAP) 156/71 (99) 147/73 (97) 147/73 158/65 (96) Pulse Ox 100 100 97 O2 Delivery Nasal Cannula Room Air Room Air O2 Flow Rate 3.0 01/31/18 01/31/18 01/31/18 02/01/18 20:00 21:16 23:38 03:00 Temp 99.1 98.7 99.1 98.7 Pulse 92 83 87 Resp 18 20 B/P (MAP) 170/72 142/63 (89) 156/70 (98) Pulse Ox 97 96 O2 Delivery Room Air Room Air Room Air 02/01/18 07:00 Temp 98.7 98.7 Pulse 85 Resp 16 B/P (MAP) 145/81 (102) Pulse Ox 98 O2 Delivery Room Air Intake and Output 01/31/18 01/31/18 02/01/18 15:00 23:00 07:00 Intake Total 120 ml 400 ml 300 ml Output Total 500 ml Balance 120 ml 400 ml -200 ml VIJAY MORILLO MD Feb 01, 2018 09:06
--- NOTE | 2018-02-01 09:32 | PDOC ---
Infectious Disease Note Subjective Subjective Had a bit of diarrhea, denies cramps/bloating On clear liquids. Hungry, wants to eat. Watching the cooking channel. Now off supplemental O2 Up to chair yesterday No fevers/chills/aches/SOA ROS ROS per HPI otherwise neg Vital Sign Vital Signs Vital Signs Date Time Temp Pulse Resp B/P (MAP) Pulse Ox O2 Delivery O2 Flow Rate FiO2 02/01/18 07:00 98.7 85 16 145/81 (102) 98 Room Air 98.7 01/31/18 11:00 3.0 Physical Exam PHYSICAL EXAM GENERAL: Propped up in bed, alert, watching TV HEENT: Left eye prosthesis. Oral cavity, pharynx pink, dry. No lesions seen. NECK: Supple. LUNGS: Decreased aeration bases, nonlabored HEART: S1 and S2. ABDOMEN: Bowel sounds active. Soft, nontender. : Whitley in place with clear urine EXTREMITIES: Rgdyk-dej-ltco amputation bilaterally. No cyanosis. SKIN: Warm, without rash. NEUROLOGIC: Alert and oriented x 3. PIV ok Labs Lab Laboratory Tests Test 01/31/18 11:57 01/31/18 16:47 01/31/18 20:32 02/01/18 03:19 Glucose (Fingerstick) 185 mg/dL (70-99) 62 mg/dL (70-99) 198 mg/dL (70-99) 34 mg/dL (70-99) Test 02/01/18 03:33 02/01/18 04:45 02/01/18 07:19 02/01/18 08:31 Glucose (Fingerstick) 190 mg/dL (70-99) 68 mg/dL (70-99) 78 mg/dL (70-99) White Blood Count 5.2 x10^3/uL (4.0-11.0) Red Blood Count 2.43 x10^6/uL (4.30-5.70) Hemoglobin 7.5 g/dL (13.0-17.5) Hematocrit 21.1 % (39.0-53.0) Mean Corpuscular Volume 87 fL (79-100) Mean Corpuscular Hemoglobin 31 pg (25-35) Mean Corpuscular Hemoglobin Concent 36 g/dL (31-37) Red Cell Distribution Width 13.0 % (11.5-14.5) Platelet Count 304 x10^3/uL (140-400) Neutrophils (%) (Auto) 61 % (31-73) Lymphocytes (%) (Auto) 22 % (24-48) Monocytes (%) (Auto) 13 % (0-9) Eosinophils (%) (Auto) 3 % (0-3) Basophils (%) (Auto) 0 % (0-3) Neutrophils # (Auto) 3.2 x10^3uL (1.8-7.7) Lymphocytes # (Auto) 1.2 x10^3/uL (1.0-4.8) Monocytes # (Auto) 0.7 x10^3/uL (0.0-1.1) Eosinophils # (Auto) 0.2 x10^3/uL (0.0-0.7) Basophils # (Auto) 0.0 x10^3/uL (0.0-0.2) Sodium Level 142 mmol/L (136-145) Potassium Level 3.4 mmol/L (3.5-5.1) Chloride Level 108 mmol/L (98-107) Carbon Dioxide Level 23 mmol/L (21-32) Anion Gap 11 (6-14) Blood Urea Nitrogen 29 mg/dL (8-26) Creatinine 2.7 mg/dL (0.7-1.3) Estimated GFR (Cockcroft-Gault) 25.1 Glucose Level 128 mg/dL (70-99) Calcium Level 8.8 mg/dL (8.5-10.1) Micro Objective Assessment Acute respiratory failure with LLL infiltrate. flu screen neg, mycoplasma neg, sputum poor quality, clinically improving abx started 01/26 Fever - Resolved. cultures neg Pyuria UC neg Chronic immunosuppression. h/o renal transplant 2007 Allergy PCN/amoxicillin - rash. Tolerated Zosyn w/o problems Acute hypoxic respiratory failure - venti mask 50% FiO2 -Influenza screen neg Acute on chronic CHF ESRD s/p renal transplant. now worsening creat Accelerated hypertension. PVD. h/o BKA bilat DM type I (since age 14 months) H/o C-diff Plan Plan of Care Empiric cefepime, renal dosing wean soon Previously on Zyvox and Zosyn f/u crypto ag ,EBV and CMV PCR = neg Supportive care D/W RN Attending Co-Sign Attending Co-Sign The patient was seen and interviewed as well as examined at the bedside. The chart was reviewed. The case was discussed. Agree with the plan of care. SHIVA MEANS APRN Feb 01, 2018 09:32 MADYSON PRADO MD Feb 01, 2018 16:23
[2018-02-01] MEDS: METOCLOPRAMIDE ORAL SOLN 10 MG/10 ML SOLUTION. PO SCH ×4 (09:39→20:46)
[2018-02-01] MEDS: PANTOPRAZOLE 40 MG TABLET.DR. PO SCH ×2 (09:41→16:55)
[2018-02-01] MEDS: MYCOPHENOLATE MOFETIL 250 MG CAPSULE. PO SCH ×2 (09:41→20:35)
[2018-02-01] MEDS: CLOPIDOGREL BISULFATE 75 MG TABLET PO SCH (09:41)
[2018-02-01] MEDS: CARVEDILOL 12.5 MG TABLET. PO SCH ×2 (09:42→16:56)
[2018-02-01] MEDS: amLODIPine BESYLATE 5 MG TABLET PO SCH (09:43)
[2018-02-01] MEDS: cloNIDine HCL 0.2 MG TABLET PO SCH ×2 (09:44→20:36)
[2018-02-01] MEDS: cloNIDine TTS-3 1 PATCH PATCH.TDWK TD SCH (09:45)
[2018-02-01] MEDS: CEFEPIME HCL IV Push 1 GM VIAL. IVP SCH (09:46)
[2018-02-01] MEDS: GABAPENTIN 100 MG CAPSULE. PO SCH ×3 (10:16→20:35)
[2018-02-01] MEDS: TACROLIMUS 0.5 MG CAPSULE PO SCH ×2 (10:16→20:36)
--- NOTE | 2018-02-01 10:17 | PDOC ---
Subjective: Subjective: Denies n/v. Admits loose stools but actually says less overnight than had had Sun and . Has stable RUQ ache - constant, unchanged since admission, mild, unrelated to eating and stooling. Tolerating clears, would like to eat more. Objective: Objective: GI following since 01/24. Had EGD on 01/25. Yesterday afternoon received another consult for "possible ileus and or blockage " based on CT report which noted "distention of the upper abdominal bowel loops , correlate for symptoms of ileus or obstruction." Diet changed to clears per primary. D/w CEASAR Cortez (yesterday) - no n/v but having loose stools. D/w CEASAR Morley, this morning. Kept on clears, now hypoglycemic, diarrhea overnight and C Diff sent. Okay to advance diet? Vital Signs: Vital Signs Date Time Temp Pulse Resp B/P (MAP) Pulse Ox O2 Delivery O2 Flow Rate FiO2 02/01/18 07:00 98.7 85 16 145/81 (102) 98 Room Air 98.7 01/31/18 11:00 3.0 Labs: Laboratory Tests Test 01/31/18 11:57 01/31/18 16:47 01/31/18 20:32 02/01/18 03:19 Glucose (Fingerstick) 185 mg/dL 62 mg/dL 198 mg/dL 34 mg/dL Test 02/01/18 03:33 02/01/18 04:45 02/01/18 07:19 02/01/18 08:31 Glucose (Fingerstick) 190 mg/dL 68 mg/dL 78 mg/dL White Blood Count 5.2 x10^3/uL Red Blood Count 2.43 x10^6/uL Hemoglobin 7.5 g/dL Hematocrit 21.1 % Mean Corpuscular Volume 87 fL Mean Corpuscular Hemoglobin 31 pg Mean Corpuscular Hemoglobin Concent 36 g/dL Red Cell Distribution Width 13.0 % Platelet Count 304 x10^3/uL Neutrophils (%) (Auto) 61 % Lymphocytes (%) (Auto) 22 % Monocytes (%) (Auto) 13 % Eosinophils (%) (Auto) 3 % Basophils (%) (Auto) 0 % Neutrophils # (Auto) 3.2 x10^3uL Lymphocytes # (Auto) 1.2 x10^3/uL Monocytes # (Auto) 0.7 x10^3/uL Eosinophils # (Auto) 0.2 x10^3/uL Basophils # (Auto) 0.0 x10^3/uL Sodium Level 142 mmol/L Potassium Level 3.4 mmol/L Chloride Level 108 mmol/L Carbon Dioxide Level 23 mmol/L Anion Gap 11 Blood Urea Nitrogen 29 mg/dL Creatinine 2.7 mg/dL Estimated GFR (Cockcroft-Gault) 25.1 Glucose Level 128 mg/dL Calcium Level 8.8 mg/dL BLOOD CULTURE Final NO GROWTH AFTER 5 DAYS PE: GEN: NAD LUNGS: CTAB HEART: RRR ABD: NABS, S/ND/NT NEURO/PSYCH: A & O 3 - evolving stooling history? A/P: Probable gastroparesis - tolerating PO, on Reglan susp GERD - on PPI Diarrhea - varying history Pneumonia, DM, CKD, anemia -- Okay to resume ADA diet. Await C Diff, monitor diarrhea. ELIOT LAMB Feb 01, 2018 10:17
[2018-02-01] MEDS ORDERED: POTASSIUM CHLORIDE 20 MEQ TABLET.ER. PO ONE (11:30)
--- NOTE | 2018-02-01 12:03 | PDOC ---
PROGRESS NOTES Chief Complaint Chief Complaint Hypokalemia Constipation, now with diarrhea JAMAL, approaching baseline Cr (1.9) Hospital acquired pneumonia HTN Severe anemia H/o cluster headache H/o renal transplant 2007 H/o DM1, hypoglycemic overnight, glucose down to 34 H/o HLP H/o CAD History of Present Illness History of Present Illness Pt seen and examined while sitting upright in bed Pt was smiling and joking and looked better today than yesterday He confirmed he is feeling better Discussed with RN Vitals Vitals Vital Signs Date Time Temp Pulse Resp B/P (MAP) Pulse Ox O2 Delivery O2 Flow Rate FiO2 02/01/18 10:40 99.3 82 18 151/85 (107) 100 Room Air 99.3 01/31/18 11:00 3.0 Physical Exam Physical Exam GENERAL: Propped up in bed, alert, watching TV HEENT: Left eye prosthesis. Oral cavity, pharynx pink, dry. No lesions seen. NECK: Supple. LUNGS: Decreased aeration bases, nonlabored HEART: S1 and S2. ABDOMEN: Bowel sounds active. Soft, nontender. : Whitley in place with clear urine EXTREMITIES: [id number] amputation bilaterally. No cyanosis. SKIN: Warm, without rash. NEUROLOGIC: Alert and oriented x 3. PIV ok General: Alert, Oriented X3 Heart: Regular rate, Normal S1, Normal S2 Lungs: Clear Abdomen: Normal bowel sounds, Soft, No tenderness Extremities: No cyanosis, Other (bilateral BKAs) Skin: No rashes, No breakdown, No significant lesion Labs LABS Laboratory Tests Test 01/31/18 11:57 01/31/18 16:47 01/31/18 20:32 02/01/18 03:19 Glucose (Fingerstick) 185 mg/dL (70-99) 62 mg/dL (70-99) 198 mg/dL (70-99) 34 mg/dL (70-99) Test 02/01/18 03:33 02/01/18 04:45 02/01/18 07:19 02/01/18 08:31 Glucose (Fingerstick) 190 mg/dL (70-99) 68 mg/dL (70-99) 78 mg/dL (70-99) White Blood Count 5.2 x10^3/uL (4.0-11.0) Red Blood Count 2.43 x10^6/uL (4.30-5.70) Hemoglobin 7.5 g/dL (13.0-17.5) Hematocrit 21.1 % (39.0-53.0) Mean Corpuscular Volume 87 fL (79-100) Mean Corpuscular Hemoglobin 31 pg (25-35) Mean Corpuscular Hemoglobin Concent 36 g/dL (31-37) Red Cell Distribution Width 13.0 % (11.5-14.5) Platelet Count 304 x10^3/uL (140-400) Neutrophils (%) (Auto) 61 % (31-73) Lymphocytes (%) (Auto) 22 % (24-48) Monocytes (%) (Auto) 13 % (0-9) Eosinophils (%) (Auto) 3 % (0-3) Basophils (%) (Auto) 0 % (0-3) Neutrophils # (Auto) 3.2 x10^3uL (1.8-7.7) Lymphocytes # (Auto) 1.2 x10^3/uL (1.0-4.8) Monocytes # (Auto) 0.7 x10^3/uL (0.0-1.1) Eosinophils # (Auto) 0.2 x10^3/uL (0.0-0.7) Basophils # (Auto) 0.0 x10^3/uL (0.0-0.2) Sodium Level 142 mmol/L (136-145) Potassium Level 3.4 mmol/L (3.5-5.1) Chloride Level 108 mmol/L (98-107) Carbon Dioxide Level 23 mmol/L (21-32) Anion Gap 11 (6-14) Blood Urea Nitrogen 29 mg/dL (8-26) Creatinine 2.7 mg/dL (0.7-1.3) Estimated GFR (Cockcroft-Gault) 25.1 Glucose Level 128 mg/dL (70-99) Calcium Level 8.8 mg/dL (8.5-10.1) Test 02/01/18 11:44 Glucose (Fingerstick) 198 mg/dL (70-99) Review of Systems Review of Systems Pt c/o diarrhea, but denies any cough, CP, or N/V. States he's feeling pretty good today. Assessment and Plan Assessmemt and Plan Problems Medical Problems: (1) Hypertensive urgency Status: Acute (2) Intractable nausea and vomiting Status: Acute (3) Migraine headache Status: Acute Assessment: Hypokalemia Constipation, now with diarrhea JAMAL, approaching baseline Cr (1.9) Hospital acquired pneumonia HTN Severe anemia H/o cluster headache H/o renal transplant 2007 H/o DM1, hypoglycemic overnight, glucose down to 34 H/o HLP H/o CAD Plan: Monitor labs Will check for c diff PO potassium replacement given Benadryl prn at bedtime Home meds PT/OT Chronic ileus, advance diet per GI, pt is tolerating well Hope to discharge once creatinine returns to baseline at 1.9 Comment Review of Relevant I have reviewed the following items nadiya (where applicable) has been applied. Labs Laboratory Tests Test 01/30/18 16:22 01/30/18 16:48 01/30/18 20:27 01/30/18 23:27 Glucose (Fingerstick) 47 mg/dL (70-99) 86 mg/dL (70-99) 159 mg/dL (70-99) 259 mg/dL (70-99) Test 01/31/18 03:40 01/31/18 07:58 01/31/18 11:57 01/31/18 16:47 White Blood Count 5.2 x10^3/uL (4.0-11.0) Red Blood Count 2.30 x10^6/uL (4.30-5.70) Hemoglobin 7.0 g/dL (13.0-17.5) Hematocrit 20.0 % (39.0-53.0) Mean Corpuscular Volume 87 fL (79-100) Mean Corpuscular Hemoglobin 31 pg (25-35) Mean Corpuscular Hemoglobin Concent 35 g/dL (31-37) Red Cell Distribution Width 13.1 % (11.5-14.5) Platelet Count 328 x10^3/uL (140-400) Neutrophils (%) (Auto) 66 % (31-73) Lymphocytes (%) (Auto) 21 % (24-48) Monocytes (%) (Auto) 11 % (0-9) Eosinophils (%) (Auto) 3 % (0-3) Basophils (%) (Auto) 0 % (0-3) Neutrophils # (Auto) 3.4 x10^3uL (1.8-7.7) Lymphocytes # (Auto) 1.1 x10^3/uL (1.0-4.8) Monocytes # (Auto) 0.5 x10^3/uL (0.0-1.1) Eosinophils # (Auto) 0.1 x10^3/uL (0.0-0.7) Basophils # (Auto) 0.0 x10^3/uL (0.0-0.2) Sodium Level 139 mmol/L (136-145) Potassium Level 4.0 mmol/L (3.5-5.1) Chloride Level 106 mmol/L (98-107) Carbon Dioxide Level 22 mmol/L (21-32) Anion Gap 11 (6-14) Blood Urea Nitrogen 41 mg/dL (8-26) Creatinine 3.6 mg/dL (0.7-1.3) Estimated GFR (Cockcroft-Gault) 18.0 Glucose Level 217 mg/dL (70-99) Calcium Level 8.6 mg/dL (8.5-10.1) Glucose (Fingerstick) 139 mg/dL (70-99) 185 mg/dL (70-99) 62 mg/dL (70-99) Test 01/31/18 20:32 02/01/18 03:19 02/01/18 03:33 02/01/18 04:45 Glucose (Fingerstick) 198 mg/dL (70-99) 34 mg/dL (70-99) 190 mg/dL (70-99) White Blood Count 5.2 x10^3/uL (4.0-11.0) Red Blood Count 2.43 x10^6/uL (4.30-5.70) Hemoglobin 7.5 g/dL (13.0-17.5) Hematocrit 21.1 % (39.0-53.0) Mean Corpuscular Volume 87 fL (79-100) Mean Corpuscular Hemoglobin 31 pg (25-35) Mean Corpuscular Hemoglobin Concent 36 g/dL (31-37) Red Cell Distribution Width 13.0 % (11.5-14.5) Platelet Count 304 x10^3/uL (140-400) Neutrophils (%) (Auto) 61 % (31-73) Lymphocytes (%) (Auto) 22 % (24-48) Monocytes (%) (Auto) 13 % (0-9) Eosinophils (%) (Auto) 3 % (0-3) Basophils (%) (Auto) 0 % (0-3) Neutrophils # (Auto) 3.2 x10^3uL (1.8-7.7) Lymphocytes # (Auto) 1.2 x10^3/uL (1.0-4.8) Monocytes # (Auto) 0.7 x10^3/uL (0.0-1.1) Eosinophils # (Auto) 0.2 x10^3/uL (0.0-0.7) Basophils # (Auto) 0.0 x10^3/uL (0.0-0.2) Sodium Level 142 mmol/L (136-145) Potassium Level 3.4 mmol/L (3.5-5.1) Chloride Level 108 mmol/L (98-107) Carbon Dioxide Level 23 mmol/L (21-32) Anion Gap 11 (6-14) Blood Urea Nitrogen 29 mg/dL (8-26) Creatinine 2.7 mg/dL (0.7-1.3) Estimated GFR (Cockcroft-Gault) 25.1 Glucose Level 128 mg/dL (70-99) Calcium Level 8.8 mg/dL (8.5-10.1) Test 02/01/18 07:19 02/01/18 08:31 02/01/18 11:44 Glucose (Fingerstick) 68 mg/dL (70-99) 78 mg/dL (70-99) 198 mg/dL (70-99) Laboratory Tests Test 01/31/18 11:57 01/31/18 16:47 01/31/18 20:32 02/01/18 03:19 Glucose (Fingerstick) 185 mg/dL (70-99) 62 mg/dL (70-99) 198 mg/dL (70-99) 34 mg/dL (70-99) Test 02/01/18 03:33 02/01/18 04:45 02/01/18 07:19 02/01/18 08:31 Glucose (Fingerstick) 190 mg/dL (70-99) 68 mg/dL (70-99) 78 mg/dL (70-99) White Blood Count 5.2 x10^3/uL (4.0-11.0) Red Blood Count 2.43 x10^6/uL (4.30-5.70) Hemoglobin 7.5 g/dL (13.0-17.5) Hematocrit 21.1 % (39.0-53.0) Mean Corpuscular Volume 87 fL (79-100) Mean Corpuscular Hemoglobin 31 pg (25-35) Mean Corpuscular Hemoglobin Concent 36 g/dL (31-37) Red Cell Distribution Width 13.0 % (11.5-14.5) Platelet Count 304 x10^3/uL (140-400) Neutrophils (%) (Auto) 61 % (31-73) Lymphocytes (%) (Auto) 22 % (24-48) Monocytes (%) (Auto) 13 % (0-9) Eosinophils (%) (Auto) 3 % (0-3) Basophils (%) (Auto) 0 % (0-3) Neutrophils # (Auto) 3.2 x10^3uL (1.8-7.7) Lymphocytes # (Auto) 1.2 x10^3/uL (1.0-4.8) Monocytes # (Auto) 0.7 x10^3/uL (0.0-1.1) Eosinophils # (Auto) 0.2 x10^3/uL (0.0-0.7) Basophils # (Auto) 0.0 x10^3/uL (0.0-0.2) Sodium Level 142 mmol/L (136-145) Potassium Level 3.4 mmol/L (3.5-5.1) Chloride Level 108 mmol/L (98-107) Carbon Dioxide Level 23 mmol/L (21-32) Anion Gap 11 (6-14) Blood Urea Nitrogen 29 mg/dL (8-26) Creatinine 2.7 mg/dL (0.7-1.3) Estimated GFR (Cockcroft-Gault) 25.1 Glucose Level 128 mg/dL (70-99) Calcium Level 8.8 mg/dL (8.5-10.1) Test 02/01/18 11:44 Glucose (Fingerstick) 198 mg/dL (70-99) Microbiology 01/26/18 Blood Culture - Final, Complete NO GROWTH AFTER 5 DAYS 01/28/18 - Final, Complete 01/28/18 - Final, Complete 01/28/18 - Final, Complete 01/28/18 - Final, Complete 01/28/18 - Final, Complete 01/28/18 Gram Stain Evaluation - Final, Complete 01/28/18 Sputum Culture - Final, Complete 01/27/18 Urine Culture - Final, Complete 01/27/18 Urine Culture Result 1 ([place]) - Final, Complete Medications Current Medications Sodium Chloride 1,000 ml @ 1,000 mls/hr Q1H IV Last administered on at 17:54; Start 01/23/18 at 17:21; Stop 01/23/18 at 18:20; Status DC Prochlorperazine Edisylate (Compazine) 10 mg 1X ONCE IV Last administered on 01/23/18at 17:55; Start 01/23/18 at 17:30; Stop 01/23/18 at 17:31; Status DC Diphenhydramine HCl (Benadryl) 25 mg 1X ONCE IVP Last administered on at 17:57; Start 01/23/18 at 17:30; Stop 01/23/18 at 17:31; Status DC Metoclopramide HCl (Reglan Vial) 10 mg 1X ONCE IV Last administered on at 19:24; Start 01/23/18 at 19:15; Stop 01/23/18 at 19:17; Status DC Diphenhydramine HCl (Benadryl) 25 mg 1X ONCE IVP Last administered on at 19:25; Start 01/23/18 at 19:15; Stop 01/23/18 at 19:17; Status DC Metoprolol Tartrate (Lopressor Vial) 5 mg 1X ONCE IVP Last administered on at 19:55; Start 01/23/18 at 19:45; Stop 01/23/18 at 19:46; Status DC Insulin Human Regular (HumuLIN R VIAL) 5 unit 1X ONCE IV Last administered on 01/23/18at 19:55; Start 01/23/18 at 19:45; Stop 01/23/18 at 19:46; Status DC Labetalol HCl (Normodyne Iv Push) 10 mg 1X ONCE IVP ; Start 01/23/18 at 20:30 ; Stop 01/23/18 at 20:31; Status DC Labetalol HCl (Normodyne Iv Push) 10 mg 1X ONCE IVP Last administered on 01/23at 22:29; Start 01/23/18 at 22:00; Stop 01/23/18 at 22:04; Status DC Ondansetron HCl (Zofran) 4 mg PRN Q8HRS PRN IV NAUSEA/VOMITING Last administered on 01/24/18at 00:16; Start 01/23/18 at 22:45; Stop 01/24/18 at 03 :05; Status DC Fentanyl Citrate (Fentanyl 2ml Vial) 50 mcg PRN Q2HR PRN IV PAIN Last administered on 01/24/18at 19:48; Start 01/23/18 at 22:45; Stop 01/24/18 at 22 :44; Status DC Sodium Chloride 1,000 ml @ 100 mls/hr Q10H IV Last administered on 01/24/18at 19:56; Start 01/23/18 at 22:37; Stop 01/24/18 at 22:36; Status DC Labetalol HCl (Normodyne Iv Push) 10 mg PRN Q30MIN PRN IVP SBP>180 Last administered on 01/24/18at 00:07; Start 01/23/18 at 22:45; Stop 01/24/18 at 00 :49; Status DC Insulin Human Lispro (HumaLOG) 0-5 UNITS TIDWMEALS SQ Last administered on at 11:46; Start 01/24/18 at 08:00 Dextrose (Dextrose 50%-Water Syringe) 12.5 gm PRN Q15MIN PRN IV SEE COMMENTS Last administered on 02/01/18at 03:26; Start 01/23/18 at 23:00 Labetalol HCl (Normodyne Iv Push) 20 mg PRN Q2HR PRN IVP HYPERTENSION, SEE COMMENTS Last administered on 01/24/18at 02:12; Start 01/24/18 at 00:45; Stop 01/25/18 at 14:21; Status DC Carvedilol (Coreg) 6.25 mg 1X ONCE PO ; Start 01/24/18 at 00:45; Stop at 00:49; Status DC Amlodipine Besylate (Norvasc) 5 mg 1X ONCE PO Last administered on 01/24/18at 01:00; Start 01/24/18 at 00:45; Stop 01/24/18 at 00:49; Status DC Oxycodone/ Acetaminophen (Percocet 5/325) 1 tab PRN Q4HRS PRN PO PAIN; Start 01/24/18 at 01:00 Carvedilol (Coreg) 12.5 mg 1X ONCE PO Last administered on 01/24/18at 01:05; Start 01/24/18 at 01:00; Stop 01/24/18 at 01:04; Status DC Nicardipine HCl 50 mg/Sodium Chloride 270 ml @ 32.4 mls/hr CONT PRN IV SEE I/ O RECORD Last administered on 01/27/18at 05:03; Start 01/24/18 at 03:00 Acetaminophen (Tylenol) 650 mg PRN Q6HRS PRN PEG MILD PAIN / TEMP; Start 01/24 at 03:15; Status Cancel Ondansetron HCl (Zofran) 4 mg PRN Q6HRS PRN IV NAUSEA/VOMITING, 1ST CHOICE Last administered on 01/26/18at 22:04; Start 01/24/18 at 03:15 Metoclopramide HCl (Reglan Vial) 5 mg PRN Q6HRS PRN IV NAUSEA/VOMITING, 3RD CHOICE Last administered on 01/25/18at 11:53; Start 01/24/18 at 03:15; Stop at 15:35; Status DC Prochlorperazine Edisylate (Compazine) 10 mg PRN Q6HRS PRN IV NAUSEA/VOMITING, 2ND CHOICE Last administered on 01/27/18at 06:31; Start 01/24/18 at 03:15 Pantoprazole Sodium (Protonix) 40 mg 1X ONCE PO Last administered on at 03:13; Start 01/24/18 at 03:30; Stop 01/24/18 at 03:31; Status DC Acetaminophen (Tylenol) 650 mg PRN Q6HRS PRN PO MIGRAINE HEADACHE Last administered on 01/27/18at 18:54; Start 01/24/18 at 03:15 Insulin Human Lispro (HumaLOG) 10 units 1X ONCE SQ Last administered on at 05:09; Start 01/24/18 at 05:00; Stop 01/24/18 at 05:02; Status DC Magnesium Sulfate/ Dextrose 100 ml @ 100 mls/hr 1X ONCE IV Last administered on 01/24/18at 12:01; Start 01/24/18 at 09:15; Stop 01/24/18 at 10:14; Status DC Metoprolol Tartrate (Lopressor Vial) 5 mg Q6HRS IVP Last administered on at 11:08; Start 01/24/18 at 11:00; Stop 01/25/18 at 11:41; Status DC Trimethobenzamide HCl (Tigan Im) 200 mg PRN Q6HRS PRN IM NAUSEA/VOMITING; Start 01/24/18 at 11:00 Morphine Sulfate (Morphine Sulfate) 2 mg PRN Q2HR PRN IV MODERATE PAIN; Start 01/24/18 at 11:00 Amlodipine Besylate (Norvasc) 5 mg DAILY PO Last administered on 02/01/18at 09: 43; Start 01/24/18 at 11:30 Clonidine HCl (Catapres) 0.2 mg BID PO Last administered on 02/01/18at 09:44; Start 01/24/18 at 11:30 Clopidogrel Bisulfate (Plavix) 75 mg DAILY PO Last administered on 02/01/18at 09 :41; Start 01/24/18 at 11:30 Insulin Glargine (Lantus) 4 units DAILYWBKFT SQ ; Start 01/24/18 at 11:30; Stop 01/24/18 at 11:30; Status DC Insulin Glargine (Lantus) 4 units QHS SQ ; Start 01/24/18 at 21:00; Status UNV Carvedilol (Coreg) 25 mg BIDWMEALS PO Last administered on 02/01/18at 09:42; Start 01/24/18 at 17:00 Non-Formulary Medication (Hydrochlorothiazide (Hydrochlorothiazide Capsule ) ) 10 mg BID PO ; Start 01/24/18 at 21:00; Stop 01/24/18 at 21:00; Status DC Mycophenolate Mofetil (Cellcept) 250 mg BID PO Last administered on 01/24/18at 12:01; Start 01/24/18 at 12:00; Stop 01/24/18 at 15:58; Status DC Pantoprazole Sodium (Protonix) 40 mg DAILYAC PO ; Start 01/24/18 at 11:30; Stop 01/24/18 at 12:01; Status DC Tacrolimus (Prograf) 2 mg BID PO Last administered on 01/24/18at 12:02; Start 01/24/18 at 12:00; Stop 01/24/18 at 13:07; Status DC Insulin Glargine (Lantus) 4 units BID SQ Last administered on 01/29/18at 09:27 ; Start 01/24/18 at 11:30; Stop 01/29/18 at 11:29; Status DC Pantoprazole Sodium (PROTONIX VIAL for IV PUSH) 40 mg DAILYAC IVP Last administered on 01/25/18at 09:34; Start 01/24/18 at 13:00; Stop 01/25/18 at 15 :35; Status DC Tacrolimus (Prograf) 4 mg DAILY PO ; Start 01/25/18 at 09:00; Stop 01/25/18 at 09:00; Status DC Tacrolimus (Prograf) 3 mg QHS PO ; Start 01/24/18 at 21:00; Stop 01/24/18 at 21:00; Status DC Tacrolimus (Prograf) 2 mg DAILY SL Last administered on 01/27/18at 07:59; Start 01/25/18 at 09:00; Stop 01/27/18 at 17:15; Status DC Tacrolimus (Prograf) 1 mg QHS SL Last administered on 01/26/18at 21:33; Start 01/24/18 at 21:00; Stop 01/27/18 at 17:13; Status DC Sodium Chloride (Saline Mist Nasal) 1 bryan PRN Q1HR PRN NS NASAL CONGESTION; Start 01/24/18 at 15:00; Stop 01/24/18 at 17:28; Status DC Gabapentin (Neurontin) 100 mg TID PO Last administered on 02/01/18at 10:16; Start 01/24/18 at 16:00 Mycophenolate Mofetil 250 mg/ Dextrose 42 ml @ 21 mls/hr Q12H IV Last administered on 01/27/18at 09:33; Start 01/24/18 at 21:00; Stop 01/27/18 at 14 :11; Status DC Tacrolimus (Prograf) 0.5 mg QHS SL Last administered on 01/26/18at 21:33; Start 01/24/18 at 21:00; Stop 01/27/18 at 17:13; Status DC Sodium Chloride (Saline Mist Nasal) 1 bryan PRN Q1HR PRN NS NASAL CONGESTION; Start 01/24/18 at 17:30 Sodium Chloride 1,000 ml @ 75 mls/hr [id number] IV ; Start 01/25/18 at 07:30; Stop 01/27/18 at 15:58; Status DC Fentanyl Citrate (Fentanyl 2ml Vial) 50 mcg PRN Q3HRS PRN IV SEVERE PAIN Last administered on 01/26/18at 22:05; Start 01/25/18 at 09:15 Sodium Chloride 1,000 ml @ 75 mls/hr [id number] IV Last administered on at 09:35; Start 01/25/18 at 09:15; Stop 01/27/18 at 15:58; Status DC Metoprolol Tartrate (Lopressor Vial) 7.5 mg Q6HRS IVP ; Start 01/25/18 at 18:00 ; Stop 01/25/18 at 18:00; Status DC Clonidine HCl (Catapres Tts-3) 1 patch WEEKLY TD Last administered on at 09:45; Start 01/25/18 at 13:00 Labetalol HCl (Normodyne Iv Push) 20 mg PRN Q4HRS PRN IVP HYPERTENSION, SEE COMMENTS Last administered on 01/31/18at 05:07; Start 01/25/18 at 13:00 Ringer's Solution 1,000 ml @ 30 mls/hr Q24H IV ; Start 01/25/18 at 15:15; Status Cancel Propofol 20 ml @ As Directed STK-MED ONCE IV ; Start 01/25/18 at 15:07; Stop 01/25/18 at 15:08; Status DC Lidocaine HCl (Xylocaine-Mpf 1% 2ml Vial) 2 ml STK-MED ONCE .ROUTE ; Start at 15:07; Stop 01/25/18 at 15:08; Status DC Sodium Chloride 1,000 ml @ 0 mls/hr Q0M IV Last administered on 01/25/18at 15: 13; Start 01/25/18 at 15:15; Stop 01/25/18 at 15:43; Status DC Metoclopramide HCl (Reglan Vial) 5 mg Q6HRS IV Last administered on 01/28/18at 06:02; Start 01/25/18 at 18:00; Stop 01/28/18 at 09:59; Status DC Pantoprazole Sodium (PROTONIX VIAL for IV PUSH) 40 mg BIDAC IVP Last administered on 01/28/18at 08:59; Start 01/25/18 at 16:30; Stop 01/28/18 at 09 :59; Status DC Levofloxacin/ Dextrose 100 ml @ 100 mls/hr Q24H IV ; Start 01/26/18 at 08:30; Stop 01/26/18 at 09:32; Status DC Levalbuterol HCl (Xopenex) 1.25 mg PRN Q6HRS PRN NEB SHORTNESS OF BREATH Last administered on 01/27/18at 12:19; Start 01/26/18 at 08:45 Piperacillin Sod/ Tazobactam Sod (Zosyn Per Pharmacy) 1 each PRN DAILY PRN MC SEE COMMENTS; Start 01/26/18 at 10:00; Stop 01/28/18 at 10:56; Status DC Furosemide (Lasix) 40 mg DAILY IVP Last administered on 01/28/18at 08:59; Start 01/26/18 at 10:30; Stop 01/31/18 at 15:53; Status DC Piperacillin Sod/ Tazobactam Sod 3.375 gm/Sodium Chloride 50 ml @ 100 mls/hr Q6HRS IV Last administered on 01/28/18at 06:03; Start 01/26/18 at 11:00; Stop 01/28/18 at 10:46; Status DC Linezolid/Dextrose 300 ml @ 300 mls/hr Q12HR IV Last administered on at 20:11; Start 01/27/18 at 10:00; Stop 01/30/18 at 08:30; Status DC Mycophenolate Mofetil (Cellcept) 250 mg BID PO Last administered on 02/01/18at 09:41; Start 01/27/18 at 21:00 Tacrolimus (Prograf) 3 mg QHS PO Last administered on 01/29/18at 20:10; Start 01/27/18 at 21:00; Stop 01/30/18 at 05:04; Status DC Tacrolimus (Prograf) 4 mg DAILY PO Last administered on 01/30/18at 08:18; Start 01/28/18 at 09:00; Stop 01/30/18 at 12:00; Status DC Doxycycline Hyclate (Vibra-Tab) 100 mg BID PO Last administered on 01/28/18at 09:06; Start 01/28/18 at 09:00; Stop 01/28/18 at 10:52; Status DC Metoclopramide HCl (Reglan Vial) 5 mg QIDACHS IV ; Start 01/28/18 at 11:30; Stop 01/28/18 at 11:30; Status DC Pantoprazole Sodium (Protonix) 40 mg BIDAC PO Last administered on 02/01/18at 09 :41; Start 01/28/18 at 10:30 Metoclopramide HCl (Reglan Oral Solution) 5 mg QIDACHS PO Last administered on 02/01/18at 09:39; Start 01/28/18 at 11:30 Cefepime HCl 1 gm/ Dextrose 50 ml @ 100 mls/hr DAILY IV ; Start 01/29/18 at 09 :00; Status UNV Cefepime HCl (Maxipime) 1 gm DAILY IVP Last administered on 02/01/18at 09:46; Start 01/28/18 at 12:00 Insulin Human Lispro (HumaLOG) 20 units 1X ONCE SQ Last administered on at 04:39; Start 01/29/18 at 05:00; Stop 01/29/18 at 05:01; Status DC Insulin Glargine (Lantus) 20 units TID SQ ; Start 01/29/18 at 14:00; Stop at 14:00; Status DC Insulin Human Lispro (HumaLOG) 10 units TIDAC SQ Last administered on at 12:24; Start 01/29/18 at 11:30; Stop 01/29/18 at 17:48; Status DC Insulin Glargine (Lantus) 20 units QHS SQ Last administered on 01/30/18at 21:00 ; Start 01/29/18 at 21:00; Stop 01/31/18 at 20:57; Status DC Docusate Sodium (Colace) 100 mg PRN DAILY PRN PO HARD STOOLS Last administered on 01/30/18at 08:16; Start 01/29/18 at 11:45 Polyethylene Glycol (miraLAX PACKET) 17 gm PRN DAILY PRN PO CONSTIPATION Last administered on 01/30/18at 08:20; Start 01/29/18 at 11:45 Insulin Human Lispro (HumaLOG) 6 units TIDAC SQ Last administered on 01/31/18at 12:10; Start 01/30/18 at 07:30 Tacrolimus (Prograf) 3 mg QHS PO Last administered on 01/31/18at 21:11; Start 01/30/18 at 21:00 Tacrolimus (Prograf) 4 mg DAILY PO Last administered on 02/01/18at 10:16; Start 01/31/18 at 09:00 Potassium Chloride (Klor-Con) 40 meq 1X ONCE PO Last administered on at 13:56; Start 01/30/18 at 13:30; Stop 01/30/18 at 13:31; Status DC Magnesium Citrate (Citroma) 296 ml PRN 1X PRN PO CONSTIPATION; Start 01/30/18 at 13:15 Bisacodyl (Dulcolax Supp) 10 mg PRN DAILY PRN [place] CONSTIPATION; Start 01/30/18 at 13:15 Darbepoetin Jd (Aranesp) 100 mcg 1X ONCE SQ Last administered on 01/31/18at 10:46; Start 01/31/18 at 09:00; Stop 01/31/18 at 09:01; Status DC Diphenhydramine HCl (Benadryl) 12.5 mg QHS PRN IVP ITCHING; Start 01/31/18 at 19:15 Insulin Glargine (Lantus) 10 units QHS SQ Last administered on 01/31/18at 21:11 ; Start 01/31/18 at 21:00 Potassium Chloride (Klor-Con) 40 meq 1X ONCE PO ; Start 02/01/18 at 11:30; Stop 02/01/18 at 11:31; Status DC Active Scripts Active Oxycodone-Acetaminophen 5-325 (Oxycodone Hcl/Acetaminophen) 1 Each Tablet 1 Tab PO PRN Q4HRS PRN Reported Prograf (Tacrolimus) 1 Mg Capsule 3 Cap PO QHS Prograf (Tacrolimus) 1 Mg Capsule 4 Cap PO DAILY Lantus Solostar (Insulin Glargine,Hum.rec.anlog) 100 Unit/1 Ml Insuln.pen 4 Unit SQ [id number] Lantus Solostar (Insulin Glargine,Hum.rec.anlog) 100 Unit/1 Ml Insuln.pen 4 Unit SQ QHS Amlodipine Besylate 5 Mg Tablet 5 Mg PO DAILY Clonidine Hcl 0.2 Mg Tablet 1 Tab PO BID Clopidogrel (Clopidogrel Bisulfate) 75 Mg Tablet 1 Tab PO DAILY Cellcept (Mycophenolate Mofetil) 250 Mg Capsule 1 Cap PO BID Pantoprazole Sodium 20 Mg Tablet.dr 20 Mg PO DAILY Hydrochlorothiazide Capsule (Hydrochlorothiazide) 12.5 Mg Capsule 10 Mg PO BID Carvedilol 25 Mg Tablet 2 Tab PO DAILYBFRSUP Vitals/I & O Vital Sign - Last 24 Hours 01/31/18 01/31/18 01/31/18 01/31/18 15:00 17:39 19:05 20:00 Temp 98.2 99.3 98.2 99.3 Pulse 83 83 91 Resp 20 19 B/P (MAP) 147/73 (97) 147/73 158/65 (96) Pulse Ox 100 97 O2 Delivery Room Air Room Air Room Air 01/31/18 01/31/18 02/01/18 02/01/18 21:16 23:38 03:00 07:00 Temp 99.1 98.7 98.7 99.1 98.7 98.7 Pulse 92 83 87 85 Resp 18 20 16 B/P (MAP) 170/72 142/63 (89) 156/70 (98) 145/81 (102) Pulse Ox 97 96 98 O2 Delivery Room Air Room Air Room Air 02/01/18 02/01/18 02/01/18 02/01/18 09:42 09:43 09:44 10:40 Temp 99.3 99.3 Pulse 95 95 95 82 Resp 18 B/P (MAP) 198/97 198/97 198/96 151/85 (107) Pulse Ox 100 O2 Delivery Room Air Intake and Output 01/31/18 01/31/18 02/01/18 15:00 23:00 07:00 Intake Total 120 ml 400 ml 300 ml Output Total 500 ml Balance 120 ml 400 ml -200 ml CASTLE,NIAL K III DO Feb 01, 2018 12:03
--- NOTE | 2018-02-01 12:43 | PDOC ---
Renal-Progress Notes Subjective Notes Notes FEELING BETTER History of Present Illness Hx of present illness IMPROVED Vitals Vitals Vital Signs Date Time Temp Pulse Resp B/P (MAP) Pulse Ox O2 Delivery O2 Flow Rate FiO2 02/01/18 10:40 99.3 82 18 151/85 (107) 100 Room Air 99.3 01/31/18 11:00 3.0 Weight Weight [ ] I.O. Intake and Output Intake and Output 02/01/18 07:00 Intake Total 820 ml Output Total 500 ml Balance 320 ml Intake Oral 820 ml Output Urine Total 500 ml # Bowel Movements 2 Labs Labs Laboratory Tests Test 01/31/18 16:47 01/31/18 20:32 02/01/18 03:19 02/01/18 03:33 Glucose (Fingerstick) 62 mg/dL (70-99) 198 mg/dL (70-99) 34 mg/dL (70-99) 190 mg/dL (70-99) Test 02/01/18 04:45 02/01/18 07:19 02/01/18 08:31 02/01/18 11:44 White Blood Count 5.2 x10^3/uL (4.0-11.0) Red Blood Count 2.43 x10^6/uL (4.30-5.70) Hemoglobin 7.5 g/dL (13.0-17.5) Hematocrit 21.1 % (39.0-53.0) Mean Corpuscular Volume 87 fL (79-100) Mean Corpuscular Hemoglobin 31 pg (25-35) Mean Corpuscular Hemoglobin Concent 36 g/dL (31-37) Red Cell Distribution Width 13.0 % (11.5-14.5) Platelet Count 304 x10^3/uL (140-400) Neutrophils (%) (Auto) 61 % (31-73) Lymphocytes (%) (Auto) 22 % (24-48) Monocytes (%) (Auto) 13 % (0-9) Eosinophils (%) (Auto) 3 % (0-3) Basophils (%) (Auto) 0 % (0-3) Neutrophils # (Auto) 3.2 x10^3uL (1.8-7.7) Lymphocytes # (Auto) 1.2 x10^3/uL (1.0-4.8) Monocytes # (Auto) 0.7 x10^3/uL (0.0-1.1) Eosinophils # (Auto) 0.2 x10^3/uL (0.0-0.7) Basophils # (Auto) 0.0 x10^3/uL (0.0-0.2) Sodium Level 142 mmol/L (136-145) Potassium Level 3.4 mmol/L (3.5-5.1) Chloride Level 108 mmol/L (98-107) Carbon Dioxide Level 23 mmol/L (21-32) Anion Gap 11 (6-14) Blood Urea Nitrogen 29 mg/dL (8-26) Creatinine 2.7 mg/dL (0.7-1.3) Estimated GFR (Cockcroft-Gault) 25.1 Glucose Level 128 mg/dL (70-99) Calcium Level 8.8 mg/dL (8.5-10.1) Glucose (Fingerstick) 68 mg/dL (70-99) 78 mg/dL (70-99) 198 mg/dL (70-99) Micro Micro Microbiology 01/26/18 Blood Culture - Final, Complete NO GROWTH AFTER 5 DAYS 01/28/18 - Final, Complete 01/28/18 - Final, Complete 01/28/18 - Final, Complete 01/28/18 - Final, Complete 01/28/18 - Final, Complete 01/28/18 Gram Stain Evaluation - Final, Complete 01/28/18 Sputum Culture - Final, Complete 01/27/18 Urine Culture - Final, Complete 01/27/18 Urine Culture Result 1 (OKSANA) - Final, Complete Review of Systems Constitutional: yes: weakness, alert, oriented Ears/Nose/Throat: Yes: no symptom reported Eyes: Yes: no symptom reported Pulmonary: Yes no symptom reported Cardiovascular: Yes no symptom reported Gastrointestional: Yes: nausea, vomiting Genitourinary: Yes: no symptom reported Musculoskeletal: Yes: no symptom reported Skin: Yes no symptom reported Psychiatric/Neurological: Yes: no symptom reported Endocrine: Yes: no symptom reported Physical Exam General Appearance: no apparent distress Skin: warm Respiratory: bilateral CTA Heart: S1S2, no thrills Abdomen: soft, bowel sounds present Genitourinary: bladder flat Extremities: pulses present Neurology: alert, oriented, follow commands Musculoskeletal: Osteoarthritis Assessment Assessment IMP HX OF RENAL [place] 2008 CKD STAGE 3 WITH CR OF ABOUT 1.5 JAMAL - IMPROVING WITH CR 4.4 TO 2.7 DEHYDRATION DUE TO N/V-RESOLVED DM II HTN HX PLAN ENC PO CONT WITH IMMUNOSUPPRESSION UPDATED FAMILY MOR PADILLA MD Feb 01, 2018 12:42
--- NOTE | 2018-02-01 12:45 | PDOC ---
PROGRESS NOTES Subjective Subjective HPI - f/u of Anemia, ROS - no CP Objective Objective Vital Signs Date Time Temp Pulse Resp B/P (MAP) Pulse Ox O2 Delivery O2 Flow Rate FiO2 02/01/18 10:40 99.3 82 18 151/85 (107) 100 Room Air 99.3 01/31/18 11:00 3.0 Intake and Output 02/01/18 07:00 Intake Total 820 ml Output Total 500 ml Balance 320 ml Intake Oral 820 ml Output Urine Total 500 ml # Bowel Movements 2 Physical Exam General: Alert, Oriented X3, No acute distress Neck: No JVD Neuro: Normal speech Psych/Mental Status: Mental status NL Assessment Assessment Problems Medical Problems: (1) Hypertensive urgency Status: Acute (2) Intractable nausea and vomiting Status: Acute (3) Migraine headache Status: Acute IMPRESSION AND PLAN: 1. Anemia, progressively worse. This is multifactorial including underlying chronic kidney disease, worsening renal failure, pneumonia, congestive heart failure, antibiotics. His reticulocyte count is normal at 1.7 and hence I do not suspect hemolysis. There is no evidence of bleeding. I would continue to monitor hemoglobin and transfuse if the hemoglobin drops to below 7. Hb stable at 7.4 on 01/29/18. Hb better at 7.9 on 01/30/18 Hb worse at 7.0 on 01/31/18, ordered aranesp 100 mcg 01/31/18. Hb better at 7.5 on 02/01/18 Monitor cbc 2. Chronic kidney disease with worsening renal failure. Appreciate Nephrology consultation. The patient has a renal transplant in 2007 and he is on CellCept and Prograf. 3. Pneumonia. Appreciate ID and Pulmonary consultation. Comment Review of Relevant I have reviewed the following items nadiya (where applicable) has been applied. Labs Laboratory Tests Test 01/30/18 16:22 01/30/18 16:48 01/30/18 20:27 01/30/18 23:27 Glucose (Fingerstick) 47 mg/dL (70-99) 86 mg/dL (70-99) 159 mg/dL (70-99) 259 mg/dL (70-99) Test 01/31/18 03:40 01/31/18 07:58 01/31/18 11:57 01/31/18 16:47 White Blood Count 5.2 x10^3/uL (4.0-11.0) Red Blood Count 2.30 x10^6/uL (4.30-5.70) Hemoglobin 7.0 g/dL (13.0-17.5) Hematocrit 20.0 % (39.0-53.0) Mean Corpuscular Volume 87 fL (79-100) Mean Corpuscular Hemoglobin 31 pg (25-35) Mean Corpuscular Hemoglobin Concent 35 g/dL (31-37) Red Cell Distribution Width 13.1 % (11.5-14.5) Platelet Count 328 x10^3/uL (140-400) Neutrophils (%) (Auto) 66 % (31-73) Lymphocytes (%) (Auto) 21 % (24-48) Monocytes (%) (Auto) 11 % (0-9) Eosinophils (%) (Auto) 3 % (0-3) Basophils (%) (Auto) 0 % (0-3) Neutrophils # (Auto) 3.4 x10^3uL (1.8-7.7) Lymphocytes # (Auto) 1.1 x10^3/uL (1.0-4.8) Monocytes # (Auto) 0.5 x10^3/uL (0.0-1.1) Eosinophils # (Auto) 0.1 x10^3/uL (0.0-0.7) Basophils # (Auto) 0.0 x10^3/uL (0.0-0.2) Sodium Level 139 mmol/L (136-145) Potassium Level 4.0 mmol/L (3.5-5.1) Chloride Level 106 mmol/L (98-107) Carbon Dioxide Level 22 mmol/L (21-32) Anion Gap 11 (6-14) Blood Urea Nitrogen 41 mg/dL (8-26) Creatinine 3.6 mg/dL (0.7-1.3) Estimated GFR (Cockcroft-Gault) 18.0 Glucose Level 217 mg/dL (70-99) Calcium Level 8.6 mg/dL (8.5-10.1) Glucose (Fingerstick) 139 mg/dL (70-99) 185 mg/dL (70-99) 62 mg/dL (70-99) Test 01/31/18 20:32 02/01/18 03:19 02/01/18 03:33 02/01/18 04:45 Glucose (Fingerstick) 198 mg/dL (70-99) 34 mg/dL (70-99) 190 mg/dL (70-99) White Blood Count 5.2 x10^3/uL (4.0-11.0) Red Blood Count 2.43 x10^6/uL (4.30-5.70) Hemoglobin 7.5 g/dL (13.0-17.5) Hematocrit 21.1 % (39.0-53.0) Mean Corpuscular Volume 87 fL (79-100) Mean Corpuscular Hemoglobin 31 pg (25-35) Mean Corpuscular Hemoglobin Concent 36 g/dL (31-37) Red Cell Distribution Width 13.0 % (11.5-14.5) Platelet Count 304 x10^3/uL (140-400) Neutrophils (%) (Auto) 61 % (31-73) Lymphocytes (%) (Auto) 22 % (24-48) Monocytes (%) (Auto) 13 % (0-9) Eosinophils (%) (Auto) 3 % (0-3) Basophils (%) (Auto) 0 % (0-3) Neutrophils # (Auto) 3.2 x10^3uL (1.8-7.7) Lymphocytes # (Auto) 1.2 x10^3/uL (1.0-4.8) Monocytes # (Auto) 0.7 x10^3/uL (0.0-1.1) Eosinophils # (Auto) 0.2 x10^3/uL (0.0-0.7) Basophils # (Auto) 0.0 x10^3/uL (0.0-0.2) Sodium Level 142 mmol/L (136-145) Potassium Level 3.4 mmol/L (3.5-5.1) Chloride Level 108 mmol/L (98-107) Carbon Dioxide Level 23 mmol/L (21-32) Anion Gap 11 (6-14) Blood Urea Nitrogen 29 mg/dL (8-26) Creatinine 2.7 mg/dL (0.7-1.3) Estimated GFR (Cockcroft-Gault) 25.1 Glucose Level 128 mg/dL (70-99) Calcium Level 8.8 mg/dL (8.5-10.1) Test 02/01/18 07:19 02/01/18 08:31 02/01/18 11:44 Glucose (Fingerstick) 68 mg/dL (70-99) 78 mg/dL (70-99) 198 mg/dL (70-99) Laboratory Tests Test 01/31/18 16:47 01/31/18 20:32 02/01/18 03:19 02/01/18 03:33 Glucose (Fingerstick) 62 mg/dL (70-99) 198 mg/dL (70-99) 34 mg/dL (70-99) 190 mg/dL (70-99) Test 02/01/18 04:45 02/01/18 07:19 02/01/18 08:31 02/01/18 11:44 White Blood Count 5.2 x10^3/uL (4.0-11.0) Red Blood Count 2.43 x10^6/uL (4.30-5.70) Hemoglobin 7.5 g/dL (13.0-17.5) Hematocrit 21.1 % (39.0-53.0) Mean Corpuscular Volume 87 fL (79-100) Mean Corpuscular Hemoglobin 31 pg (25-35) Mean Corpuscular Hemoglobin Concent 36 g/dL (31-37) Red Cell Distribution Width 13.0 % (11.5-14.5) Platelet Count 304 x10^3/uL (140-400) Neutrophils (%) (Auto) 61 % (31-73) Lymphocytes (%) (Auto) 22 % (24-48) Monocytes (%) (Auto) 13 % (0-9) Eosinophils (%) (Auto) 3 % (0-3) Basophils (%) (Auto) 0 % (0-3) Neutrophils # (Auto) 3.2 x10^3uL (1.8-7.7) Lymphocytes # (Auto) 1.2 x10^3/uL (1.0-4.8) Monocytes # (Auto) 0.7 x10^3/uL (0.0-1.1) Eosinophils # (Auto) 0.2 x10^3/uL (0.0-0.7) Basophils # (Auto) 0.0 x10^3/uL (0.0-0.2) Sodium Level 142 mmol/L (136-145) Potassium Level 3.4 mmol/L (3.5-5.1) Chloride Level 108 mmol/L (98-107) Carbon Dioxide Level 23 mmol/L (21-32) Anion Gap 11 (6-14) Blood Urea Nitrogen 29 mg/dL (8-26) Creatinine 2.7 mg/dL (0.7-1.3) Estimated GFR (Cockcroft-Gault) 25.1 Glucose Level 128 mg/dL (70-99) Calcium Level 8.8 mg/dL (8.5-10.1) Glucose (Fingerstick) 68 mg/dL (70-99) 78 mg/dL (70-99) 198 mg/dL (70-99) Microbiology 01/26/18 Blood Culture - Final, Complete NO GROWTH AFTER 5 DAYS 01/28/18 - Final, Complete 01/28/18 - Final, Complete 01/28/18 - Final, Complete 01/28/18 - Final, Complete 01/28/18 - Final, Complete 01/28/18 Gram Stain Evaluation - Final, Complete 01/28/18 Sputum Culture - Final, Complete 01/27/18 Urine Culture - Final, Complete 01/27/18 Urine Culture Result 1 (OKSANA) - Final, Complete Medications Current Medications Sodium Chloride 1,000 ml @ 1,000 mls/hr Q1H IV Last administered on at 17:54; Start 01/23/18 at 17:21; Stop 01/23/18 at 18:20; Status DC Prochlorperazine Edisylate (Compazine) 10 mg 1X ONCE IV Last administered on 01/23/18at 17:55; Start 01/23/18 at 17:30; Stop 01/23/18 at 17:31; Status DC Diphenhydramine HCl (Benadryl) 25 mg 1X ONCE IVP Last administered on at 17:57; Start 01/23/18 at 17:30; Stop 01/23/18 at 17:31; Status DC Metoclopramide HCl (Reglan Vial) 10 mg 1X ONCE IV Last administered on at 19:24; Start 01/23/18 at 19:15; Stop 01/23/18 at 19:17; Status DC Diphenhydramine HCl (Benadryl) 25 mg 1X ONCE IVP Last administered on at 19:25; Start 01/23/18 at 19:15; Stop 01/23/18 at 19:17; Status DC Metoprolol Tartrate (Lopressor Vial) 5 mg 1X ONCE IVP Last administered on at 19:55; Start 01/23/18 at 19:45; Stop 01/23/18 at 19:46; Status DC Insulin Human Regular (HumuLIN R VIAL) 5 unit 1X ONCE IV Last administered on 01/23/18at 19:55; Start 01/23/18 at 19:45; Stop 01/23/18 at 19:46; Status DC Labetalol HCl (Normodyne Iv Push) 10 mg 1X ONCE IVP ; Start 01/23/18 at 20:30 ; Stop 01/23/18 at 20:31; Status DC Labetalol HCl (Normodyne Iv Push) 10 mg 1X ONCE IVP Last administered on 01/23at 22:29; Start 01/23/18 at 22:00; Stop 01/23/18 at 22:04; Status DC Ondansetron HCl (Zofran) 4 mg PRN Q8HRS PRN IV NAUSEA/VOMITING Last administered on 01/24/18at 00:16; Start 01/23/18 at 22:45; Stop 01/24/18 at 03 :05; Status DC Fentanyl Citrate (Fentanyl 2ml Vial) 50 mcg PRN Q2HR PRN IV PAIN Last administered on 01/24/18at 19:48; Start 01/23/18 at 22:45; Stop 01/24/18 at 22 :44; Status DC Sodium Chloride 1,000 ml @ 100 mls/hr Q10H IV Last administered on 01/24/18at 19:56; Start 01/23/18 at 22:37; Stop 01/24/18 at 22:36; Status DC Labetalol HCl (Normodyne Iv Push) 10 mg PRN Q30MIN PRN IVP SBP>180 Last administered on 01/24/18at 00:07; Start 01/23/18 at 22:45; Stop 01/24/18 at 00 :49; Status DC Insulin Human Lispro (HumaLOG) 0-5 UNITS TIDWMEALS SQ Last administered on 02/01at 12:36; Start 01/24/18 at 08:00 Dextrose (Dextrose 50%-Water Syringe) 12.5 gm PRN Q15MIN PRN IV SEE COMMENTS Last administered on 02/01/18at 03:26; Start 01/23/18 at 23:00 Labetalol HCl (Normodyne Iv Push) 20 mg PRN Q2HR PRN IVP HYPERTENSION, SEE COMMENTS Last administered on 01/24/18at 02:12; Start 01/24/18 at 00:45; Stop 01/25/18 at 14:21; Status DC Carvedilol (Coreg) 6.25 mg 1X ONCE PO ; Start 01/24/18 at 00:45; Stop at 00:49; Status DC Amlodipine Besylate (Norvasc) 5 mg 1X ONCE PO Last administered on 01/24/18at 01:00; Start 01/24/18 at 00:45; Stop 01/24/18 at 00:49; Status DC Oxycodone/ Acetaminophen (Percocet 5/325) 1 tab PRN Q4HRS PRN PO PAIN; Start 01/24/18 at 01:00 Carvedilol (Coreg) 12.5 mg 1X ONCE PO Last administered on 01/24/18at 01:05; Start 01/24/18 at 01:00; Stop 01/24/18 at 01:04; Status DC Nicardipine HCl 50 mg/Sodium Chloride 270 ml @ 32.4 mls/hr CONT PRN IV SEE I/ O RECORD Last administered on 01/27/18at 05:03; Start 01/24/18 at 03:00 Acetaminophen (Tylenol) 650 mg PRN Q6HRS PRN PEG MILD PAIN / TEMP; Start 01/24 at 03:15; Status Cancel Ondansetron HCl (Zofran) 4 mg PRN Q6HRS PRN IV NAUSEA/VOMITING, 1ST CHOICE Last administered on 01/26/18at 22:04; Start 01/24/18 at 03:15 Metoclopramide HCl (Reglan Vial) 5 mg PRN Q6HRS PRN IV NAUSEA/VOMITING, 3RD CHOICE Last administered on 01/25/18at 11:53; Start 01/24/18 at 03:15; Stop at 15:35; Status DC Prochlorperazine Edisylate (Compazine) 10 mg PRN Q6HRS PRN IV NAUSEA/VOMITING, 2ND CHOICE Last administered on 01/27/18at 06:31; Start 01/24/18 at 03:15 Pantoprazole Sodium (Protonix) 40 mg 1X ONCE PO Last administered on at 03:13; Start 01/24/18 at 03:30; Stop 01/24/18 at 03:31; Status DC Acetaminophen (Tylenol) 650 mg PRN Q6HRS PRN PO MIGRAINE HEADACHE Last administered on 01/27/18at 18:54; Start 01/24/18 at 03:15 Insulin Human Lispro (HumaLOG) 10 units 1X ONCE SQ Last administered on at 05:09; Start 01/24/18 at 05:00; Stop 01/24/18 at 05:02; Status DC Magnesium Sulfate/ Dextrose 100 ml @ 100 mls/hr 1X ONCE IV Last administered on 01/24/18at 12:01; Start 01/24/18 at 09:15; Stop 01/24/18 at 10:14; Status DC Metoprolol Tartrate (Lopressor Vial) 5 mg Q6HRS IVP Last administered on at 11:08; Start 01/24/18 at 11:00; Stop 01/25/18 at 11:41; Status DC Trimethobenzamide HCl (Tigan Im) 200 mg PRN Q6HRS PRN IM NAUSEA/VOMITING; Start 01/24/18 at 11:00 Morphine Sulfate (Morphine Sulfate) 2 mg PRN Q2HR PRN IV MODERATE PAIN; Start 01/24/18 at 11:00 Amlodipine Besylate (Norvasc) 5 mg DAILY PO Last administered on 02/01/18at 09: 43; Start 01/24/18 at 11:30 Clonidine HCl (Catapres) 0.2 mg BID PO Last administered on 02/01/18at 09:44; Start 01/24/18 at 11:30 Clopidogrel Bisulfate (Plavix) 75 mg DAILY PO Last administered on 02/01/18at 09 :41; Start 01/24/18 at 11:30 Insulin Glargine (Lantus) 4 units [id number] SQ ; Start 01/24/18 at 11:30; Stop 01/24/18 at 11:30; Status DC Insulin Glargine (Lantus) 4 units QHS SQ ; Start 01/24/18 at 21:00; Status UNV Carvedilol (Coreg) 25 mg BIDWMEALS PO Last administered on 02/01/18at 09:42; Start 01/24/18 at 17:00 Non-Formulary Medication (Hydrochlorothiazide (Hydrochlorothiazide Capsule ) ) 10 mg BID PO ; Start 01/24/18 at 21:00; Stop 01/24/18 at 21:00; Status DC Mycophenolate Mofetil (Cellcept) 250 mg BID PO Last administered on 01/24/18at 12:01; Start 01/24/18 at 12:00; Stop 01/24/18 at 15:58; Status DC Pantoprazole Sodium (Protonix) 40 mg DAILYAC PO ; Start 01/24/18 at 11:30; Stop 01/24/18 at 12:01; Status DC Tacrolimus (Prograf) 2 mg BID PO Last administered on 01/24/18at 12:02; Start 01/24/18 at 12:00; Stop 01/24/18 at 13:07; Status DC Insulin Glargine (Lantus) 4 units BID SQ Last administered on 01/29/18at 09:27 ; Start 01/24/18 at 11:30; Stop 01/29/18 at 11:29; Status DC Pantoprazole Sodium (PROTONIX VIAL for IV PUSH) 40 mg DAILYAC IVP Last administered on 01/25/18at 09:34; Start 01/24/18 at 13:00; Stop 01/25/18 at 15 :35; Status DC Tacrolimus (Prograf) 4 mg DAILY PO ; Start 01/25/18 at 09:00; Stop 01/25/18 at 09:00; Status DC Tacrolimus (Prograf) 3 mg QHS PO ; Start 01/24/18 at 21:00; Stop 01/24/18 at 21:00; Status DC Tacrolimus (Prograf) 2 mg DAILY SL Last administered on 01/27/18at 07:59; Start 01/25/18 at 09:00; Stop 01/27/18 at 17:15; Status DC Tacrolimus (Prograf) 1 mg QHS SL Last administered on 01/26/18at 21:33; Start 01/24/18 at 21:00; Stop 01/27/18 at 17:13; Status DC Sodium Chloride (Saline Mist Nasal) 1 bryan PRN Q1HR PRN NS NASAL CONGESTION; Start 01/24/18 at 15:00; Stop 01/24/18 at 17:28; Status DC Gabapentin (Neurontin) 100 mg TID PO Last administered on 02/01/18at 10:16; Start 01/24/18 at 16:00 Mycophenolate Mofetil 250 mg/ Dextrose 42 ml @ 21 mls/hr Q12H IV Last administered on 01/27/18at 09:33; Start 01/24/18 at 21:00; Stop 01/27/18 at 14 :11; Status DC Tacrolimus (Prograf) 0.5 mg QHS SL Last administered on 01/26/18at 21:33; Start 01/24/18 at 21:00; Stop 01/27/18 at 17:13; Status DC Sodium Chloride (Saline Mist Nasal) 1 bryan PRN Q1HR PRN NS NASAL CONGESTION; Start 01/24/18 at 17:30 Sodium Chloride 1,000 ml @ 75 mls/hr [id number] IV ; Start 01/25/18 at 07:30; Stop 01/27/18 at 15:58; Status DC Fentanyl Citrate (Fentanyl 2ml Vial) 50 mcg PRN Q3HRS PRN IV SEVERE PAIN Last administered on 01/26/18at 22:05; Start 01/25/18 at 09:15 Sodium Chloride 1,000 ml @ 75 mls/hr [id number] IV Last administered on at 09:35; Start 01/25/18 at 09:15; Stop 01/27/18 at 15:58; Status DC Metoprolol Tartrate (Lopressor Vial) 7.5 mg Q6HRS IVP ; Start 01/25/18 at 18:00 ; Stop 01/25/18 at 18:00; Status DC Clonidine HCl (Catapres Tts-3) 1 patch WEEKLY TD Last administered on at 09:45; Start 01/25/18 at 13:00 Labetalol HCl (Normodyne Iv Push) 20 mg PRN Q4HRS PRN IVP HYPERTENSION, SEE COMMENTS Last administered on 01/31/18at 05:07; Start 01/25/18 at 13:00 Ringer's Solution 1,000 ml @ 30 mls/hr Q24H IV ; Start 01/25/18 at 15:15; Status Cancel Propofol 20 ml @ As Directed STK-MED ONCE IV ; Start 01/25/18 at 15:07; Stop 01/25/18 at 15:08; Status DC Lidocaine HCl (Xylocaine-Mpf 1% 2ml Vial) 2 ml STK-MED ONCE .ROUTE ; Start at 15:07; Stop 01/25/18 at 15:08; Status DC Sodium Chloride 1,000 ml @ 0 mls/hr Q0M IV Last administered on 01/25/18at 15: 13; Start 01/25/18 at 15:15; Stop 01/25/18 at 15:43; Status DC Metoclopramide HCl (Reglan Vial) 5 mg Q6HRS IV Last administered on 01/28/18at 06:02; Start 01/25/18 at 18:00; Stop 01/28/18 at 09:59; Status DC Pantoprazole Sodium (PROTONIX VIAL for IV PUSH) 40 mg BIDAC IVP Last administered on 01/28/18at 08:59; Start 01/25/18 at 16:30; Stop 01/28/18 at 09 :59; Status DC Levofloxacin/ Dextrose 100 ml @ 100 mls/hr Q24H IV ; Start 01/26/18 at 08:30; Stop 01/26/18 at 09:32; Status DC Levalbuterol HCl (Xopenex) 1.25 mg PRN Q6HRS PRN NEB SHORTNESS OF BREATH Last administered on 01/27/18at 12:19; Start 01/26/18 at 08:45 Piperacillin Sod/ Tazobactam Sod (Zosyn Per Pharmacy) 1 each PRN DAILY PRN MC SEE COMMENTS; Start 01/26/18 at 10:00; Stop 01/28/18 at 10:56; Status DC Furosemide (Lasix) 40 mg DAILY IVP Last administered on 01/28/18at 08:59; Start 01/26/18 at 10:30; Stop 01/31/18 at 15:53; Status DC Piperacillin Sod/ Tazobactam Sod 3.375 gm/Sodium Chloride 50 ml @ 100 mls/hr Q6HRS IV Last administered on 01/28/18at 06:03; Start 01/26/18 at 11:00; Stop 01/28/18 at 10:46; Status DC Linezolid/Dextrose 300 ml @ 300 mls/hr Q12HR IV Last administered on at 20:11; Start 01/27/18 at 10:00; Stop 01/30/18 at 08:30; Status DC Mycophenolate Mofetil (Cellcept) 250 mg BID PO Last administered on 02/01/18at 09:41; Start 01/27/18 at 21:00 Tacrolimus (Prograf) 3 mg QHS PO Last administered on 01/29/18at 20:10; Start 01/27/18 at 21:00; Stop 01/30/18 at 05:04; Status DC Tacrolimus (Prograf) 4 mg DAILY PO Last administered on 01/30/18at 08:18; Start 01/28/18 at 09:00; Stop 01/30/18 at 12:00; Status DC Doxycycline Hyclate (Vibra-Tab) 100 mg BID PO Last administered on 01/28/18at 09:06; Start 01/28/18 at 09:00; Stop 01/28/18 at 10:52; Status DC Metoclopramide HCl (Reglan Vial) 5 mg QIDACHS IV ; Start 01/28/18 at 11:30; Stop 01/28/18 at 11:30; Status DC Pantoprazole Sodium (Protonix) 40 mg BIDAC PO Last administered on 02/01/18at 09 :41; Start 01/28/18 at 10:30 Metoclopramide HCl (Reglan Oral Solution) 5 mg QIDACHS PO Last administered on 02/01/18at 12:29; Start 01/28/18 at 11:30 Cefepime HCl 1 gm/ Dextrose 50 ml @ 100 mls/hr DAILY IV ; Start 01/29/18 at 09 :00; Status UNV Cefepime HCl (Maxipime) 1 gm DAILY IVP Last administered on 02/01/18at 09:46; Start 01/28/18 at 12:00 Insulin Human Lispro (HumaLOG) 20 units 1X ONCE SQ Last administered on at 04:39; Start 01/29/18 at 05:00; Stop 01/29/18 at 05:01; Status DC Insulin Glargine (Lantus) 20 units TID SQ ; Start 01/29/18 at 14:00; Stop at 14:00; Status DC Insulin Human Lispro (HumaLOG) 10 units TIDAC SQ Last administered on at 12:24; Start 01/29/18 at 11:30; Stop 01/29/18 at 17:48; Status DC Insulin Glargine (Lantus) 20 units QHS SQ Last administered on 01/30/18at 21:00 ; Start 01/29/18 at 21:00; Stop 01/31/18 at 20:57; Status DC Docusate Sodium (Colace) 100 mg PRN DAILY PRN PO HARD STOOLS Last administered on 01/30/18at 08:16; Start 01/29/18 at 11:45 Polyethylene Glycol (miraLAX PACKET) 17 gm PRN DAILY PRN PO CONSTIPATION Last administered on 01/30/18at 08:20; Start 01/29/18 at 11:45 Insulin Human Lispro (HumaLOG) 6 units TIDAC SQ Last administered on 02/01/18at 12:36; Start 01/30/18 at 07:30 Tacrolimus (Prograf) 3 mg QHS PO Last administered on 01/31/18at 21:11; Start 01/30/18 at 21:00 Tacrolimus (Prograf) 4 mg DAILY PO Last administered on 02/01/18at 10:16; Start 01/31/18 at 09:00 Potassium Chloride (Klor-Con) 40 meq 1X ONCE PO Last administered on at 13:56; Start 01/30/18 at 13:30; Stop 01/30/18 at 13:31; Status DC Magnesium Citrate (Citroma) 296 ml PRN 1X PRN PO CONSTIPATION; Start 01/30/18 at 13:15 Bisacodyl (Dulcolax Supp) 10 mg PRN DAILY PRN ID CONSTIPATION; Start 01/30/18 at 13:15 Darbepoetin Jd (Aranesp) 100 mcg 1X ONCE SQ Last administered on 01/31/18at 10:46; Start 01/31/18 at 09:00; Stop 01/31/18 at 09:01; Status DC Diphenhydramine HCl (Benadryl) 12.5 mg QHS PRN IVP ITCHING; Start 01/31/18 at 19:15 Insulin Glargine (Lantus) 10 units QHS SQ Last administered on 01/31/18at 21:11 ; Start 01/31/18 at 21:00 Potassium Chloride (Klor-Con) 40 meq 1X ONCE PO Last administered on at 12:30; Start 02/01/18 at 11:30; Stop 02/01/18 at 11:31; Status DC Active Scripts Active Oxycodone-Acetaminophen 5-325 (Oxycodone Hcl/Acetaminophen) 1 Each Tablet 1 Tab PO PRN Q4HRS PRN Reported Prograf (Tacrolimus) 1 Mg Capsule 3 Cap PO QHS Prograf (Tacrolimus) 1 Mg Capsule 4 Cap PO DAILY Lantus Solostar (Insulin Glargine,Hum.rec.anlog) 100 Unit/1 Ml Insuln.pen 4 Unit SQ [id number] Lantus Solostar (Insulin Glargine,Hum.rec.anlog) 100 Unit/1 Ml Insuln.pen 4 Unit SQ QHS Amlodipine Besylate 5 Mg Tablet 5 Mg PO DAILY Clonidine Hcl 0.2 Mg Tablet 1 Tab PO BID Clopidogrel (Clopidogrel Bisulfate) 75 Mg Tablet 1 Tab PO DAILY Cellcept (Mycophenolate Mofetil) 250 Mg Capsule 1 Cap PO BID Pantoprazole Sodium 20 Mg Tablet.dr 20 Mg PO DAILY Hydrochlorothiazide Capsule (Hydrochlorothiazide) 12.5 Mg Capsule 10 Mg PO BID Carvedilol 25 Mg Tablet 2 Tab PO DAILYBFRSUP Vitals/I & O Vital Sign - Last 24 Hours 01/31/18 01/31/18 01/31/18 01/31/18 15:00 17:39 19:05 20:00 Temp 98.2 99.3 98.2 99.3 Pulse 83 83 91 Resp 20 19 B/P (MAP) 147/73 (97) 147/73 158/65 (96) Pulse Ox 100 97 O2 Delivery Room Air Room Air Room Air 01/31/18 01/31/18 02/01/18 02/01/18 21:16 23:38 03:00 07:00 Temp 99.1 98.7 98.7 99.1 98.7 98.7 Pulse 92 83 87 85 Resp 18 20 16 B/P (MAP) 170/72 142/63 (89) 156/70 (98) 145/81 (102) Pulse Ox 97 96 98 O2 Delivery Room Air Room Air Room Air 02/01/18 02/01/18 02/01/18 02/01/18 09:42 09:43 09:44 10:40 Temp 99.3 99.3 Pulse 95 95 95 82 Resp 18 B/P (MAP) 198/97 198/97 198/96 151/85 (107) Pulse Ox 100 O2 Delivery Room Air Intake and Output 01/31/18 01/31/18 02/01/18 15:00 23:00 07:00 Intake Total 120 ml 400 ml 300 ml Output Total 500 ml Balance 120 ml 400 ml -200 ml LUDIN GARCIA MD Feb 01, 2018 12:45
[2018-02-01] MEDS: INSULIN GLARGINE 300 UNITS/3 ML INSULN.PEN. SQ SCH (20:59)
[2018-02-01] MEDS: diphenhydrAMINE 50 MG/ML VIAL IVP PRN (22:48)
[2018-02-01] MEDS: LABETALOL 20 MG/4 ML DISP.SYRIN. IVP PRN (23:20)
[2018-02-02] VITALS (7 sets, daily range): BP systolic 123–197; BP diastolic 59–83
[2018-02-02] MEDS: LABETALOL 20 MG/4 ML DISP.SYRIN. IVP PRN ×2 (03:28→08:06)
[2018-02-02 05:26] LABS: BASO % 0 % (0-3); EOS # 0.2 x10^3/uL (0.0-0.7); EOS % 3 % (0-3); LYMPH # 1.4 x10^3/uL (1.0-4.8); LYMPH % 26 % (24-48); MEAN CORPUSCULAR HEMOGLOBIN 31 pg (25-35); MEAN CORPUSCULAR HGB CONC 35 g/dL (31-37); MEAN CORPUSCULAR VOLUME 88 fL (79-100); MONO # 0.5 x10^3/uL (0.0-1.1); MONO % 10 % (0-9); NEUT # 3.2 x10^3uL (1.8-7.7); NEUT % 61 % (31-73); PLATELET COUNT 286 x10^3/uL (140-400); RED BLOOD COUNT 2.24 x10^6/uL (4.30-5.70); RED CELL DISTRIBUTION WIDTH 13.3 % (11.5-14.5); WHITE BLOOD COUNT 5.3 x10^3/uL (4.0-11.0)
[2018-02-02 05:37] LABS: CALCIUM 8.8 mg/dL (8.5-10.1); CREATININE 2.2 mg/dL (0.7-1.3); GFR 31.8; HEMATOCRIT 19.7 % (39.0-53.0); HEMOGLOBIN 6.8 g/dL (13.0-17.5); POTASSIUM 4.3 mmol/L (3.5-5.1)
[2018-02-02] MEDS: METOCLOPRAMIDE ORAL SOLN 10 MG/10 ML SOLUTION. PO SCH ×4 (08:05→20:58)
[2018-02-02] MEDS: TACROLIMUS 0.5 MG CAPSULE PO SCH ×2 (08:09→20:57)
[2018-02-02] MEDS: MYCOPHENOLATE MOFETIL 250 MG CAPSULE. PO SCH ×2 (08:09→20:57)
[2018-02-02] MEDS: amLODIPine BESYLATE 5 MG TABLET PO SCH (08:09)
[2018-02-02] MEDS: CARVEDILOL 12.5 MG TABLET. PO SCH ×2 (08:10→17:29)
[2018-02-02] MEDS: GABAPENTIN 100 MG CAPSULE. PO SCH ×3 (08:10→20:57)
[2018-02-02] MEDS: ACETAMINOPHEN 325 MG TABLET. PO PRN (08:10)
[2018-02-02] MEDS: CLOPIDOGREL BISULFATE 75 MG TABLET PO SCH (08:11)
[2018-02-02] MEDS: PANTOPRAZOLE 40 MG TABLET.DR. PO SCH ×2 (08:11→17:28)
[2018-02-02] MEDS: cloNIDine HCL 0.2 MG TABLET PO SCH ×2 (08:11→20:58)
[2018-02-02] MEDS: CEFEPIME HCL IV Push 1 GM VIAL. IVP SCH (08:12)
--- NOTE | 2018-02-02 08:13 | PDOC ---
PROGRESS NOTES Chief Complaint Chief Complaint Hypokalemia Constipation, now with diarrhea JAMAL, approaching baseline Cr (1.9) Hospital acquired pneumonia HTN Severe anemia H/o cluster headache H/o renal transplant 2007 H/o DM1, hypoglycemic intermittently H/o HLP H/o CAD History of Present Illness History of Present Illness Admitted for HTN urgency, JAMAL, hypokalemia, HCAP Pt seen and examined while sitting upright in bed He confirmed he is feeling better, but feeling very fatigued today CXR looks improved. Hb dropped to 6.8 d/w nephrology to hold off on transfusion at this time, will repeat, no obvious source of blood loss Discussed with RN A/P: Hypokalemia - improving, nephrology following Constipation, now with diarrhea - improving JAMAL, approaching baseline Cr (1.9) Hospital acquired pneumonia - ID following, was on zyvox and zosyn, now on cefepime HTN - Stable Severe anemia - Hb 6.8, will hold off on transfusion at this time H/o cluster headache H/o renal transplant 2007 - stable on cellcept H/o DM1, hypoglycemic overnight, glucose down to 34 - will monitor H/o HLP H/o CAD Will cont inpatient care Vitals Vitals Vital Signs Date Time Temp Pulse Resp B/P (MAP) Pulse Ox O2 Delivery O2 Flow Rate FiO2 02/02/18 08:11 92 197/81 02/02/18 07:35 98.6 18 97 Room Air 98.6 Physical Exam Physical Exam GENERAL: Propped up in bed, alert, watching TV HEENT: Left eye prosthesis. Oral cavity, pharynx pink, dry. No lesions seen. NECK: Supple. LUNGS: Decreased aeration bases, nonlabored HEART: S1 and S2. ABDOMEN: Bowel sounds active. Soft, nontender. : Whitley in place with clear urine EXTREMITIES: [id number] amputation bilaterally. No cyanosis. SKIN: Warm, without rash. NEUROLOGIC: Alert and oriented x 3. PIV ok General: Alert, Oriented X3, No acute distress Heart: Regular rate, Normal S1, Normal S2 Lungs: Clear Abdomen: Normal bowel sounds, Soft, No tenderness Extremities: No cyanosis, Other (bilateral BKAs) Skin: No rashes, No breakdown, No significant lesion Labs LABS Laboratory Tests Test 02/01/18 08:31 02/01/18 11:44 02/01/18 16:52 02/01/18 20:45 Glucose (Fingerstick) 78 mg/dL (70-99) 198 mg/dL (70-99) 73 mg/dL (70-99) 122 mg/dL (70-99) Test 02/02/18 03:24 02/02/18 04:00 02/02/18 07:33 Glucose (Fingerstick) 158 mg/dL (70-99) 172 mg/dL (70-99) White Blood Count 5.3 x10^3/uL (4.0-11.0) Red Blood Count 2.24 x10^6/uL (4.30-5.70) Hemoglobin 6.8 g/dL (13.0-17.5) Hematocrit 19.7 % (39.0-53.0) Mean Corpuscular Volume 88 fL (79-100) Mean Corpuscular Hemoglobin 31 pg (25-35) Mean Corpuscular Hemoglobin Concent 35 g/dL (31-37) Red Cell Distribution Width 13.3 % (11.5-14.5) Platelet Count 286 x10^3/uL (140-400) Neutrophils (%) (Auto) 61 % (31-73) Lymphocytes (%) (Auto) 26 % (24-48) Monocytes (%) (Auto) 10 % (0-9) Eosinophils (%) (Auto) 3 % (0-3) Basophils (%) (Auto) 0 % (0-3) Neutrophils # (Auto) 3.2 x10^3uL (1.8-7.7) Lymphocytes # (Auto) 1.4 x10^3/uL (1.0-4.8) Monocytes # (Auto) 0.5 x10^3/uL (0.0-1.1) Eosinophils # (Auto) 0.2 x10^3/uL (0.0-0.7) Basophils # (Auto) 0.0 x10^3/uL (0.0-0.2) Sodium Level 140 mmol/L (136-145) Potassium Level 4.3 mmol/L (3.5-5.1) Chloride Level 108 mmol/L (98-107) Carbon Dioxide Level 23 mmol/L (21-32) Anion Gap 9 (6-14) Blood Urea Nitrogen 23 mg/dL (8-26) Creatinine 2.2 mg/dL (0.7-1.3) Estimated GFR (Cockcroft-Gault) 31.8 Glucose Level 170 mg/dL (70-99) Calcium Level 8.8 mg/dL (8.5-10.1) Assessment and Plan Assessmemt and Plan Problems Medical Problems: (1) Hypertensive urgency Status: Acute (2) Intractable nausea and vomiting Status: Acute (3) Migraine headache Status: Acute Comment Review of Relevant I have reviewed the following items nadiya (where applicable) has been applied. Labs Laboratory Tests Test 01/31/18 11:57 01/31/18 16:47 01/31/18 20:32 02/01/18 03:19 Glucose (Fingerstick) 185 mg/dL (70-99) 62 mg/dL (70-99) 198 mg/dL (70-99) 34 mg/dL (70-99) Test 02/01/18 03:33 02/01/18 04:45 02/01/18 07:19 02/01/18 08:31 Glucose (Fingerstick) 190 mg/dL (70-99) 68 mg/dL (70-99) 78 mg/dL (70-99) White Blood Count 5.2 x10^3/uL (4.0-11.0) Red Blood Count 2.43 x10^6/uL (4.30-5.70) Hemoglobin 7.5 g/dL (13.0-17.5) Hematocrit 21.1 % (39.0-53.0) Mean Corpuscular Volume 87 fL (79-100) Mean Corpuscular Hemoglobin 31 pg (25-35) Mean Corpuscular Hemoglobin Concent 36 g/dL (31-37) Red Cell Distribution Width 13.0 % (11.5-14.5) Platelet Count 304 x10^3/uL (140-400) Neutrophils (%) (Auto) 61 % (31-73) Lymphocytes (%) (Auto) 22 % (24-48) Monocytes (%) (Auto) 13 % (0-9) Eosinophils (%) (Auto) 3 % (0-3) Basophils (%) (Auto) 0 % (0-3) Neutrophils # (Auto) 3.2 x10^3uL (1.8-7.7) Lymphocytes # (Auto) 1.2 x10^3/uL (1.0-4.8) Monocytes # (Auto) 0.7 x10^3/uL (0.0-1.1) Eosinophils # (Auto) 0.2 x10^3/uL (0.0-0.7) Basophils # (Auto) 0.0 x10^3/uL (0.0-0.2) Sodium Level 142 mmol/L (136-145) Potassium Level 3.4 mmol/L (3.5-5.1) Chloride Level 108 mmol/L (98-107) Carbon Dioxide Level 23 mmol/L (21-32) Anion Gap 11 (6-14) Blood Urea Nitrogen 29 mg/dL (8-26) Creatinine 2.7 mg/dL (0.7-1.3) Estimated GFR (Cockcroft-Gault) 25.1 Glucose Level 128 mg/dL (70-99) Calcium Level 8.8 mg/dL (8.5-10.1) Test 02/01/18 11:44 02/01/18 16:52 02/01/18 20:45 02/02/18 03:24 Glucose (Fingerstick) 198 mg/dL (70-99) 73 mg/dL (70-99) 122 mg/dL (70-99) 158 mg/dL (70-99) Test 02/02/18 04:00 02/02/18 07:33 White Blood Count 5.3 x10^3/uL (4.0-11.0) Red Blood Count 2.24 x10^6/uL (4.30-5.70) Hemoglobin 6.8 g/dL (13.0-17.5) Hematocrit 19.7 % (39.0-53.0) Mean Corpuscular Volume 88 fL (79-100) Mean Corpuscular Hemoglobin 31 pg (25-35) Mean Corpuscular Hemoglobin Concent 35 g/dL (31-37) Red Cell Distribution Width 13.3 % (11.5-14.5) Platelet Count 286 x10^3/uL (140-400) Neutrophils (%) (Auto) 61 % (31-73) Lymphocytes (%) (Auto) 26 % (24-48) Monocytes (%) (Auto) 10 % (0-9) Eosinophils (%) (Auto) 3 % (0-3) Basophils (%) (Auto) 0 % (0-3) Neutrophils # (Auto) 3.2 x10^3uL (1.8-7.7) Lymphocytes # (Auto) 1.4 x10^3/uL (1.0-4.8) Monocytes # (Auto) 0.5 x10^3/uL (0.0-1.1) Eosinophils # (Auto) 0.2 x10^3/uL (0.0-0.7) Basophils # (Auto) 0.0 x10^3/uL (0.0-0.2) Sodium Level 140 mmol/L (136-145) Potassium Level 4.3 mmol/L (3.5-5.1) Chloride Level 108 mmol/L (98-107) Carbon Dioxide Level 23 mmol/L (21-32) Anion Gap 9 (6-14) Blood Urea Nitrogen 23 mg/dL (8-26) Creatinine 2.2 mg/dL (0.7-1.3) Estimated GFR (Cockcroft-Gault) 31.8 Glucose Level 170 mg/dL (70-99) Calcium Level 8.8 mg/dL (8.5-10.1) Glucose (Fingerstick) 172 mg/dL (70-99) Laboratory Tests Test 02/01/18 08:31 02/01/18 11:44 02/01/18 16:52 02/01/18 20:45 Glucose (Fingerstick) 78 mg/dL (70-99) 198 mg/dL (70-99) 73 mg/dL (70-99) 122 mg/dL (70-99) Test 02/02/18 03:24 02/02/18 04:00 02/02/18 07:33 Glucose (Fingerstick) 158 mg/dL (70-99) 172 mg/dL (70-99) White Blood Count 5.3 x10^3/uL (4.0-11.0) Red Blood Count 2.24 x10^6/uL (4.30-5.70) Hemoglobin 6.8 g/dL (13.0-17.5) Hematocrit 19.7 % (39.0-53.0) Mean Corpuscular Volume 88 fL (79-100) Mean Corpuscular Hemoglobin 31 pg (25-35) Mean Corpuscular Hemoglobin Concent 35 g/dL (31-37) Red Cell Distribution Width 13.3 % (11.5-14.5) Platelet Count 286 x10^3/uL (140-400) Neutrophils (%) (Auto) 61 % (31-73) Lymphocytes (%) (Auto) 26 % (24-48) Monocytes (%) (Auto) 10 % (0-9) Eosinophils (%) (Auto) 3 % (0-3) Basophils (%) (Auto) 0 % (0-3) Neutrophils # (Auto) 3.2 x10^3uL (1.8-7.7) Lymphocytes # (Auto) 1.4 x10^3/uL (1.0-4.8) Monocytes # (Auto) 0.5 x10^3/uL (0.0-1.1) Eosinophils # (Auto) 0.2 x10^3/uL (0.0-0.7) Basophils # (Auto) 0.0 x10^3/uL (0.0-0.2) Sodium Level 140 mmol/L (136-145) Potassium Level 4.3 mmol/L (3.5-5.1) Chloride Level 108 mmol/L (98-107) Carbon Dioxide Level 23 mmol/L (21-32) Anion Gap 9 (6-14) Blood Urea Nitrogen 23 mg/dL (8-26) Creatinine 2.2 mg/dL (0.7-1.3) Estimated GFR (Cockcroft-Gault) 31.8 Glucose Level 170 mg/dL (70-99) Calcium Level 8.8 mg/dL (8.5-10.1) Microbiology 01/26/18 Blood Culture - Final, Complete NO GROWTH AFTER 5 DAYS 01/28/18 - Final, Complete 01/28/18 - Final, Complete 01/28/18 - Final, Complete 01/28/18 - Final, Complete 01/28/18 - Final, Complete 01/28/18 Gram Stain Evaluation - Final, Complete 01/28/18 Sputum Culture - Final, Complete 01/27/18 Urine Culture - Final, Complete 01/27/18 Urine Culture Result 1 ([place]) - Final, Complete Medications Current Medications Sodium Chloride 1,000 ml @ 1,000 mls/hr Q1H IV Last administered on at 17:54; Start 01/23/18 at 17:21; Stop 01/23/18 at 18:20; Status DC Prochlorperazine Edisylate (Compazine) 10 mg 1X ONCE IV Last administered on 01/23/18at 17:55; Start 01/23/18 at 17:30; Stop 01/23/18 at 17:31; Status DC Diphenhydramine HCl (Benadryl) 25 mg 1X ONCE IVP Last administered on at 17:57; Start 01/23/18 at 17:30; Stop 01/23/18 at 17:31; Status DC Metoclopramide HCl (Reglan Vial) 10 mg 1X ONCE IV Last administered on at 19:24; Start 01/23/18 at 19:15; Stop 01/23/18 at 19:17; Status DC Diphenhydramine HCl (Benadryl) 25 mg 1X ONCE IVP Last administered on at 19:25; Start 01/23/18 at 19:15; Stop 01/23/18 at 19:17; Status DC Metoprolol Tartrate (Lopressor Vial) 5 mg 1X ONCE IVP Last administered on at 19:55; Start 01/23/18 at 19:45; Stop 01/23/18 at 19:46; Status DC Insulin Human Regular (HumuLIN R VIAL) 5 unit 1X ONCE IV Last administered on 01/23/18at 19:55; Start 01/23/18 at 19:45; Stop 01/23/18 at 19:46; Status DC Labetalol HCl (Normodyne Iv Push) 10 mg 1X ONCE IVP ; Start 01/23/18 at 20:30 ; Stop 01/23/18 at 20:31; Status DC Labetalol HCl (Normodyne Iv Push) 10 mg 1X ONCE IVP Last administered on 01/23at 22:29; Start 01/23/18 at 22:00; Stop 01/23/18 at 22:04; Status DC Ondansetron HCl (Zofran) 4 mg PRN Q8HRS PRN IV NAUSEA/VOMITING Last administered on 01/24/18at 00:16; Start 01/23/18 at 22:45; Stop 01/24/18 at 03 :05; Status DC Fentanyl Citrate (Fentanyl 2ml Vial) 50 mcg PRN Q2HR PRN IV PAIN Last administered on 01/24/18at 19:48; Start 01/23/18 at 22:45; Stop 01/24/18 at 22 :44; Status DC Sodium Chloride 1,000 ml @ 100 mls/hr Q10H IV Last administered on 01/24/18at 19:56; Start 01/23/18 at 22:37; Stop 01/24/18 at 22:36; Status DC Labetalol HCl (Normodyne Iv Push) 10 mg PRN Q30MIN PRN IVP SBP>180 Last administered on 01/24/18at 00:07; Start 01/23/18 at 22:45; Stop 01/24/18 at 00 :49; Status DC Insulin Human Lispro (HumaLOG) 0-5 UNITS TIDWMEALS SQ Last administered on 02/01at 12:36; Start 01/24/18 at 08:00 Dextrose (Dextrose 50%-Water Syringe) 12.5 gm PRN Q15MIN PRN IV SEE COMMENTS Last administered on 02/01/18at 03:26; Start 01/23/18 at 23:00 Labetalol HCl (Normodyne Iv Push) 20 mg PRN Q2HR PRN IVP HYPERTENSION, SEE COMMENTS Last administered on 01/24/18at 02:12; Start 01/24/18 at 00:45; Stop 01/25/18 at 14:21; Status DC Carvedilol (Coreg) 6.25 mg 1X ONCE PO ; Start 01/24/18 at 00:45; Stop at 00:49; Status DC Amlodipine Besylate (Norvasc) 5 mg 1X ONCE PO Last administered on 01/24/18at 01:00; Start 01/24/18 at 00:45; Stop 01/24/18 at 00:49; Status DC Oxycodone/ Acetaminophen (Percocet 5/325) 1 tab PRN Q4HRS PRN PO PAIN; Start 01/24/18 at 01:00 Carvedilol (Coreg) 12.5 mg 1X ONCE PO Last administered on 01/24/18at 01:05; Start 01/24/18 at 01:00; Stop 01/24/18 at 01:04; Status DC Nicardipine HCl 50 mg/Sodium Chloride 270 ml @ 32.4 mls/hr CONT PRN IV SEE I/ O RECORD Last administered on 01/27/18at 05:03; Start 01/24/18 at 03:00 Acetaminophen (Tylenol) 650 mg PRN Q6HRS PRN PEG MILD PAIN / TEMP; Start 01/24 at 03:15; Status Cancel Ondansetron HCl (Zofran) 4 mg PRN Q6HRS PRN IV NAUSEA/VOMITING, 1ST CHOICE Last administered on 01/26/18at 22:04; Start 01/24/18 at 03:15 Metoclopramide HCl (Reglan Vial) 5 mg PRN Q6HRS PRN IV NAUSEA/VOMITING, 3RD CHOICE Last administered on 01/25/18at 11:53; Start 01/24/18 at 03:15; Stop at 15:35; Status DC Prochlorperazine Edisylate (Compazine) 10 mg PRN Q6HRS PRN IV NAUSEA/VOMITING, 2ND CHOICE Last administered on 01/27/18at 06:31; Start 01/24/18 at 03:15 Pantoprazole Sodium (Protonix) 40 mg 1X ONCE PO Last administered on at 03:13; Start 01/24/18 at 03:30; Stop 01/24/18 at 03:31; Status DC Acetaminophen (Tylenol) 650 mg PRN Q6HRS PRN PO MIGRAINE HEADACHE Last administered on 02/02/18at 08:10; Start 01/24/18 at 03:15 Insulin Human Lispro (HumaLOG) 10 units 1X ONCE SQ Last administered on at 05:09; Start 01/24/18 at 05:00; Stop 01/24/18 at 05:02; Status DC Magnesium Sulfate/ Dextrose 100 ml @ 100 mls/hr 1X ONCE IV Last administered on 01/24/18at 12:01; Start 01/24/18 at 09:15; Stop 01/24/18 at 10:14; Status DC Metoprolol Tartrate (Lopressor Vial) 5 mg Q6HRS IVP Last administered on at 11:08; Start 01/24/18 at 11:00; Stop 01/25/18 at 11:41; Status DC Trimethobenzamide HCl (Tigan Im) 200 mg PRN Q6HRS PRN IM NAUSEA/VOMITING; Start 01/24/18 at 11:00 Morphine Sulfate (Morphine Sulfate) 2 mg PRN Q2HR PRN IV MODERATE PAIN; Start 01/24/18 at 11:00 Amlodipine Besylate (Norvasc) 5 mg DAILY PO Last administered on 02/02/18at 08: 09; Start 01/24/18 at 11:30 Clonidine HCl (Catapres) 0.2 mg BID PO Last administered on 02/02/18at 08:11; Start 01/24/18 at 11:30 Clopidogrel Bisulfate (Plavix) 75 mg DAILY PO Last administered on 02/02/18at 08 :11; Start 01/24/18 at 11:30 Insulin Glargine (Lantus) 4 units DAILYWBKFT SQ ; Start 01/24/18 at 11:30; Stop 01/24/18 at 11:30; Status DC Insulin Glargine (Lantus) 4 units QHS SQ ; Start 01/24/18 at 21:00; Status UNV Carvedilol (Coreg) 25 mg BIDWMEALS PO Last administered on 02/02/18at 08:10; Start 01/24/18 at 17:00 Non-Formulary Medication (Hydrochlorothiazide (Hydrochlorothiazide Capsule ) ) 10 mg BID PO ; Start 01/24/18 at 21:00; Stop 01/24/18 at 21:00; Status DC Mycophenolate Mofetil (Cellcept) 250 mg BID PO Last administered on 01/24/18at 12:01; Start 01/24/18 at 12:00; Stop 01/24/18 at 15:58; Status DC Pantoprazole Sodium (Protonix) 40 mg DAILYAC PO ; Start 01/24/18 at 11:30; Stop 01/24/18 at 12:01; Status DC Tacrolimus (Prograf) 2 mg BID PO Last administered on 01/24/18at 12:02; Start 01/24/18 at 12:00; Stop 01/24/18 at 13:07; Status DC Insulin Glargine (Lantus) 4 units BID SQ Last administered on 01/29/18at 09:27 ; Start 01/24/18 at 11:30; Stop 01/29/18 at 11:29; Status DC Pantoprazole Sodium (PROTONIX VIAL for IV PUSH) 40 mg DAILYAC IVP Last administered on 01/25/18at 09:34; Start 01/24/18 at 13:00; Stop 01/25/18 at 15 :35; Status DC Tacrolimus (Prograf) 4 mg DAILY PO ; Start 01/25/18 at 09:00; Stop 01/25/18 at 09:00; Status DC Tacrolimus (Prograf) 3 mg QHS PO ; Start 01/24/18 at 21:00; Stop 01/24/18 at 21:00; Status DC Tacrolimus (Prograf) 2 mg DAILY SL Last administered on 01/27/18at 07:59; Start 01/25/18 at 09:00; Stop 01/27/18 at 17:15; Status DC Tacrolimus (Prograf) 1 mg QHS SL Last administered on 01/26/18at 21:33; Start 01/24/18 at 21:00; Stop 01/27/18 at 17:13; Status DC Sodium Chloride (Saline Mist Nasal) 1 bryan PRN Q1HR PRN NS NASAL CONGESTION; Start 01/24/18 at 15:00; Stop 01/24/18 at 17:28; Status DC Gabapentin (Neurontin) 100 mg TID PO Last administered on 02/02/18at 08:10; Start 01/24/18 at 16:00 Mycophenolate Mofetil 250 mg/ Dextrose 42 ml @ 21 mls/hr Q12H IV Last administered on 01/27/18at 09:33; Start 01/24/18 at 21:00; Stop 01/27/18 at 14 :11; Status DC Tacrolimus (Prograf) 0.5 mg QHS SL Last administered on 01/26/18at 21:33; Start 01/24/18 at 21:00; Stop 01/27/18 at 17:13; Status DC Sodium Chloride (Saline Mist Nasal) 1 bryan PRN Q1HR PRN NS NASAL CONGESTION; Start 01/24/18 at 17:30 Sodium Chloride 1,000 ml @ 75 mls/hr [id number] IV ; Start 01/25/18 at 07:30; Stop 01/27/18 at 15:58; Status DC Fentanyl Citrate (Fentanyl 2ml Vial) 50 mcg PRN Q3HRS PRN IV SEVERE PAIN Last administered on 01/26/18at 22:05; Start 01/25/18 at 09:15 Sodium Chloride 1,000 ml @ 75 mls/hr [id number] IV Last administered on at 09:35; Start 01/25/18 at 09:15; Stop 01/27/18 at 15:58; Status DC Metoprolol Tartrate (Lopressor Vial) 7.5 mg Q6HRS IVP ; Start 01/25/18 at 18:00 ; Stop 01/25/18 at 18:00; Status DC Clonidine HCl (Catapres Tts-3) 1 patch WEEKLY TD Last administered on at 09:45; Start 01/25/18 at 13:00 Labetalol HCl (Normodyne Iv Push) 20 mg PRN Q4HRS PRN IVP HYPERTENSION, SEE COMMENTS Last administered on 02/02/18at 08:06; Start 01/25/18 at 13:00 Ringer's Solution 1,000 ml @ 30 mls/hr Q24H IV ; Start 01/25/18 at 15:15; Status Cancel Propofol 20 ml @ As Directed STK-MED ONCE IV ; Start 01/25/18 at 15:07; Stop 01/25/18 at 15:08; Status DC Lidocaine HCl (Xylocaine-Mpf 1% 2ml Vial) 2 ml STK-MED ONCE .ROUTE ; Start at 15:07; Stop 01/25/18 at 15:08; Status DC Sodium Chloride 1,000 ml @ 0 mls/hr Q0M IV Last administered on 01/25/18at 15: 13; Start 01/25/18 at 15:15; Stop 01/25/18 at 15:43; Status DC Metoclopramide HCl (Reglan Vial) 5 mg Q6HRS IV Last administered on 01/28/18at 06:02; Start 01/25/18 at 18:00; Stop 01/28/18 at 09:59; Status DC Pantoprazole Sodium (PROTONIX VIAL for IV PUSH) 40 mg BIDAC IVP Last administered on 01/28/18at 08:59; Start 01/25/18 at 16:30; Stop 01/28/18 at 09 :59; Status DC Levofloxacin/ Dextrose 100 ml @ 100 mls/hr Q24H IV ; Start 01/26/18 at 08:30; Stop 01/26/18 at 09:32; Status DC Levalbuterol HCl (Xopenex) 1.25 mg PRN Q6HRS PRN NEB SHORTNESS OF BREATH Last administered on 01/27/18at 12:19; Start 01/26/18 at 08:45 Piperacillin Sod/ Tazobactam Sod (Zosyn Per Pharmacy) 1 each PRN DAILY PRN MC SEE COMMENTS; Start 01/26/18 at 10:00; Stop 01/28/18 at 10:56; Status DC Furosemide (Lasix) 40 mg DAILY IVP Last administered on 01/28/18at 08:59; Start 01/26/18 at 10:30; Stop 01/31/18 at 15:53; Status DC Piperacillin Sod/ Tazobactam Sod 3.375 gm/Sodium Chloride 50 ml @ 100 mls/hr Q6HRS IV Last administered on 01/28/18at 06:03; Start 01/26/18 at 11:00; Stop 01/28/18 at 10:46; Status DC Linezolid/Dextrose 300 ml @ 300 mls/hr Q12HR IV Last administered on at 20:11; Start 01/27/18 at 10:00; Stop 01/30/18 at 08:30; Status DC Mycophenolate Mofetil (Cellcept) 250 mg BID PO Last administered on 02/02/18at 08:09; Start 01/27/18 at 21:00 Tacrolimus (Prograf) 3 mg QHS PO Last administered on 01/29/18at 20:10; Start 01/27/18 at 21:00; Stop 01/30/18 at 05:04; Status DC Tacrolimus (Prograf) 4 mg DAILY PO Last administered on 01/30/18at 08:18; Start 01/28/18 at 09:00; Stop 01/30/18 at 12:00; Status DC Doxycycline Hyclate (Vibra-Tab) 100 mg BID PO Last administered on 01/28/18at 09:06; Start 01/28/18 at 09:00; Stop 01/28/18 at 10:52; Status DC Metoclopramide HCl (Reglan Vial) 5 mg QIDACHS IV ; Start 01/28/18 at 11:30; Stop 01/28/18 at 11:30; Status DC Pantoprazole Sodium (Protonix) 40 mg BIDAC PO Last administered on 02/02/18at 08 :11; Start 01/28/18 at 10:30 Metoclopramide HCl (Reglan Oral Solution) 5 mg QIDACHS PO Last administered on 02/02/18at 08:05; Start 01/28/18 at 11:30 Cefepime HCl 1 gm/ Dextrose 50 ml @ 100 mls/hr DAILY IV ; Start 01/29/18 at 09 :00; Status UNV Cefepime HCl (Maxipime) 1 gm DAILY IVP Last administered on 02/02/18at 08:12; Start 01/28/18 at 12:00 Insulin Human Lispro (HumaLOG) 20 units 1X ONCE SQ Last administered on at 04:39; Start 01/29/18 at 05:00; Stop 01/29/18 at 05:01; Status DC Insulin Glargine (Lantus) 20 units TID SQ ; Start 01/29/18 at 14:00; Stop at 14:00; Status DC Insulin Human Lispro (HumaLOG) 10 units TIDAC SQ Last administered on at 12:24; Start 01/29/18 at 11:30; Stop 01/29/18 at 17:48; Status DC Insulin Glargine (Lantus) 20 units QHS SQ Last administered on 01/30/18at 21:00 ; Start 01/29/18 at 21:00; Stop 01/31/18 at 20:57; Status DC Docusate Sodium (Colace) 100 mg PRN DAILY PRN PO HARD STOOLS Last administered on 01/30/18at 08:16; Start 01/29/18 at 11:45 Polyethylene Glycol (miraLAX PACKET) 17 gm PRN DAILY PRN PO CONSTIPATION Last administered on 01/30/18at 08:20; Start 01/29/18 at 11:45 Insulin Human Lispro (HumaLOG) 6 units TIDAC SQ Last administered on 02/01/18at 12:36; Start 01/30/18 at 07:30 Tacrolimus (Prograf) 3 mg QHS PO Last administered on 02/01/18at 20:36; Start 01/30/18 at 21:00 Tacrolimus (Prograf) 4 mg DAILY PO Last administered on 02/02/18at 08:09; Start 01/31/18 at 09:00 Potassium Chloride (Klor-Con) 40 meq 1X ONCE PO Last administered on at 13:56; Start 01/30/18 at 13:30; Stop 01/30/18 at 13:31; Status DC Magnesium Citrate (Citroma) 296 ml PRN 1X PRN PO CONSTIPATION; Start 01/30/18 at 13:15 Bisacodyl (Dulcolax Supp) 10 mg PRN DAILY PRN MS CONSTIPATION; Start 01/30/18 at 13:15 Darbepoetin Jd (Aranesp) 100 mcg 1X ONCE SQ Last administered on 01/31/18at 10:46; Start 01/31/18 at 09:00; Stop 01/31/18 at 09:01; Status DC Diphenhydramine HCl (Benadryl) 12.5 mg QHS PRN IVP ITCHING Last administered on 02/01/18at 22:48; Start 01/31/18 at 19:15 Insulin Glargine (Lantus) 10 units QHS SQ Last administered on 02/01/18at 20:59 ; Start 01/31/18 at 21:00 Potassium Chloride (Klor-Con) 40 meq 1X ONCE PO Last administered on at 12:30; Start 02/01/18 at 11:30; Stop 02/01/18 at 11:31; Status DC Active Scripts Active Oxycodone-Acetaminophen 5-325 (Oxycodone Hcl/Acetaminophen) 1 Each Tablet 1 Tab PO PRN Q4HRS PRN Reported Prograf (Tacrolimus) 1 Mg Capsule 3 Cap PO QHS Prograf (Tacrolimus) 1 Mg Capsule 4 Cap PO DAILY Lantus Solostar (Insulin Glargine,Hum.rec.anlog) 100 Unit/1 Ml Insuln.pen 4 Unit SQ DAILYWBKFT Lantus Solostar (Insulin Glargine,Hum.rec.anlog) 100 Unit/1 Ml Insuln.pen 4 Unit SQ QHS Amlodipine Besylate 5 Mg Tablet 5 Mg PO DAILY Clonidine Hcl 0.2 Mg Tablet 1 Tab PO BID Clopidogrel (Clopidogrel Bisulfate) 75 Mg Tablet 1 Tab PO DAILY Cellcept (Mycophenolate Mofetil) 250 Mg Capsule 1 Cap PO BID Pantoprazole Sodium 20 Mg Tablet.dr 20 Mg PO DAILY Hydrochlorothiazide Capsule (Hydrochlorothiazide) 12.5 Mg Capsule 10 Mg PO BID Carvedilol 25 Mg Tablet 2 Tab PO DAILYBFRSUP Vitals/I & O Vital Sign - Last 24 Hours 02/01/18 02/01/18 02/01/18 02/01/18 09:42 09:43 09:44 10:40 Temp 99.3 99.3 Pulse 95 95 95 82 Resp 18 B/P (MAP) 198/97 198/97 198/96 151/85 (107) Pulse Ox 100 O2 Delivery Room Air 02/01/18 02/01/18 02/01/18 02/01/18 14:48 16:56 19:40 19:48 Temp 98.7 99.2 98.7 99.2 Pulse 88 88 93 Resp 20 22 B/P (MAP) 151/73 (99) 151/73 160/63 (95) Pulse Ox 100 97 O2 Delivery Room Air Room Air Room Air 02/01/18 02/01/18 02/01/18 02/01/18 20:36 23:12 23:20 23:45 Temp 97.7 97.7 Pulse 93 93 93 90 Resp 18 B/P (MAP) 160/63 180/81 (114) 180/81 146/80 (102) Pulse Ox 96 O2 Delivery Room Air 02/02/18 02/02/18 02/02/18 02/02/18 03:28 03:33 03:54 07:35 Temp 98.9 98.6 98.9 98.6 Pulse 92 92 87 92 Resp 20 18 B/P (MAP) 188/93 188/83 (118) 163/82 (109) 197/81 (119) Pulse Ox 95 97 O2 Delivery Room Air Room Air 02/02/18 02/02/18 02/02/18 02/02/18 08:06 08:09 08:10 08:11 Pulse 92 92 92 92 B/P (MAP) 197/81 197/81 197/81 197/81 Intake and Output 02/01/18 02/01/18 02/02/18 15:00 23:00 07:00 Intake Total 240 ml 900 ml 200 ml Output Total 700 ml 500 ml Balance 240 ml 200 ml -300 ml RAN JOE MD Feb 02, 2018 08:13
[2018-02-02] MEDS: INSULIN LISPRO 300 UNITS/3 ML INSULN.PEN. SQ SCH ×6 (08:32→16:58)
--- NOTE | 2018-02-02 09:02 | PDOC ---
PULMONARY PROGRESS NOTES Subjective c/o soa, back on oxygen Vitals Vital Signs Date Time Temp Pulse Resp B/P (MAP) Pulse Ox O2 Delivery O2 Flow Rate FiO2 02/02/18 08:11 92 197/81 02/02/18 07:35 98.6 18 97 Room Air 98.6 ROS: No Nausea, No Chest Pain, No Abdominal Pain General: Alert, No acute distress Lungs: Clear Cardiovascular: S1, S2 Abdomen: Soft Neuro Exam: Alert Extremities: Other (bka) Skin: Warm Labs Laboratory Tests Test 01/31/18 11:57 01/31/18 16:47 01/31/18 20:32 02/01/18 03:00 Glucose (Fingerstick) 185 mg/dL (70-99) 62 mg/dL (70-99) 198 mg/dL (70-99) Clostridium difficile Toxin (PCR) Negative (Negative) Test 02/01/18 03:19 02/01/18 03:33 02/01/18 04:45 02/01/18 07:19 Glucose (Fingerstick) 34 mg/dL (70-99) 190 mg/dL (70-99) 68 mg/dL (70-99) White Blood Count 5.2 x10^3/uL (4.0-11.0) Red Blood Count 2.43 x10^6/uL (4.30-5.70) Hemoglobin 7.5 g/dL (13.0-17.5) Hematocrit 21.1 % (39.0-53.0) Mean Corpuscular Volume 87 fL (79-100) Mean Corpuscular Hemoglobin 31 pg (25-35) Mean Corpuscular Hemoglobin Concent 36 g/dL (31-37) Red Cell Distribution Width 13.0 % (11.5-14.5) Platelet Count 304 x10^3/uL (140-400) Neutrophils (%) (Auto) 61 % (31-73) Lymphocytes (%) (Auto) 22 % (24-48) Monocytes (%) (Auto) 13 % (0-9) Eosinophils (%) (Auto) 3 % (0-3) Basophils (%) (Auto) 0 % (0-3) Neutrophils # (Auto) 3.2 x10^3uL (1.8-7.7) Lymphocytes # (Auto) 1.2 x10^3/uL (1.0-4.8) Monocytes # (Auto) 0.7 x10^3/uL (0.0-1.1) Eosinophils # (Auto) 0.2 x10^3/uL (0.0-0.7) Basophils # (Auto) 0.0 x10^3/uL (0.0-0.2) Sodium Level 142 mmol/L (136-145) Potassium Level 3.4 mmol/L (3.5-5.1) Chloride Level 108 mmol/L (98-107) Carbon Dioxide Level 23 mmol/L (21-32) Anion Gap 11 (6-14) Blood Urea Nitrogen 29 mg/dL (8-26) Creatinine 2.7 mg/dL (0.7-1.3) Estimated GFR (Cockcroft-Gault) 25.1 Glucose Level 128 mg/dL (70-99) Calcium Level 8.8 mg/dL (8.5-10.1) Test 02/01/18 08:31 02/01/18 11:44 02/01/18 16:52 02/01/18 20:45 Glucose (Fingerstick) 78 mg/dL (70-99) 198 mg/dL (70-99) 73 mg/dL (70-99) 122 mg/dL (70-99) Test 02/02/18 03:24 02/02/18 04:00 02/02/18 07:33 Glucose (Fingerstick) 158 mg/dL (70-99) 172 mg/dL (70-99) White Blood Count 5.3 x10^3/uL (4.0-11.0) Red Blood Count 2.24 x10^6/uL (4.30-5.70) Hemoglobin 6.8 g/dL (13.0-17.5) Hematocrit 19.7 % (39.0-53.0) Mean Corpuscular Volume 88 fL (79-100) Mean Corpuscular Hemoglobin 31 pg (25-35) Mean Corpuscular Hemoglobin Concent 35 g/dL (31-37) Red Cell Distribution Width 13.3 % (11.5-14.5) Platelet Count 286 x10^3/uL (140-400) Neutrophils (%) (Auto) 61 % (31-73) Lymphocytes (%) (Auto) 26 % (24-48) Monocytes (%) (Auto) 10 % (0-9) Eosinophils (%) (Auto) 3 % (0-3) Basophils (%) (Auto) 0 % (0-3) Neutrophils # (Auto) 3.2 x10^3uL (1.8-7.7) Lymphocytes # (Auto) 1.4 x10^3/uL (1.0-4.8) Monocytes # (Auto) 0.5 x10^3/uL (0.0-1.1) Eosinophils # (Auto) 0.2 x10^3/uL (0.0-0.7) Basophils # (Auto) 0.0 x10^3/uL (0.0-0.2) Sodium Level 140 mmol/L (136-145) Potassium Level 4.3 mmol/L (3.5-5.1) Chloride Level 108 mmol/L (98-107) Carbon Dioxide Level 23 mmol/L (21-32) Anion Gap 9 (6-14) Blood Urea Nitrogen 23 mg/dL (8-26) Creatinine 2.2 mg/dL (0.7-1.3) Estimated GFR (Cockcroft-Gault) 31.8 Glucose Level 170 mg/dL (70-99) Calcium Level 8.8 mg/dL (8.5-10.1) Laboratory Tests Test 02/01/18 11:44 02/01/18 16:52 02/01/18 20:45 02/02/18 03:24 Glucose (Fingerstick) 198 mg/dL (70-99) 73 mg/dL (70-99) 122 mg/dL (70-99) 158 mg/dL (70-99) Test 02/02/18 04:00 02/02/18 07:33 White Blood Count 5.3 x10^3/uL (4.0-11.0) Red Blood Count 2.24 x10^6/uL (4.30-5.70) Hemoglobin 6.8 g/dL (13.0-17.5) Hematocrit 19.7 % (39.0-53.0) Mean Corpuscular Volume 88 fL (79-100) Mean Corpuscular Hemoglobin 31 pg (25-35) Mean Corpuscular Hemoglobin Concent 35 g/dL (31-37) Red Cell Distribution Width 13.3 % (11.5-14.5) Platelet Count 286 x10^3/uL (140-400) Neutrophils (%) (Auto) 61 % (31-73) Lymphocytes (%) (Auto) 26 % (24-48) Monocytes (%) (Auto) 10 % (0-9) Eosinophils (%) (Auto) 3 % (0-3) Basophils (%) (Auto) 0 % (0-3) Neutrophils # (Auto) 3.2 x10^3uL (1.8-7.7) Lymphocytes # (Auto) 1.4 x10^3/uL (1.0-4.8) Monocytes # (Auto) 0.5 x10^3/uL (0.0-1.1) Eosinophils # (Auto) 0.2 x10^3/uL (0.0-0.7) Basophils # (Auto) 0.0 x10^3/uL (0.0-0.2) Sodium Level 140 mmol/L (136-145) Potassium Level 4.3 mmol/L (3.5-5.1) Chloride Level 108 mmol/L (98-107) Carbon Dioxide Level 23 mmol/L (21-32) Anion Gap 9 (6-14) Blood Urea Nitrogen 23 mg/dL (8-26) Creatinine 2.2 mg/dL (0.7-1.3) Estimated GFR (Cockcroft-Gault) 31.8 Glucose Level 170 mg/dL (70-99) Calcium Level 8.8 mg/dL (8.5-10.1) Glucose (Fingerstick) 172 mg/dL (70-99) Medications Active Scripts Medications Dose Route/Sig Max Daily Dose Days Date Category Prograf (Tacrolimus) 1 Mg Capsule 3 Cap PO QHS 01/24/18 Reported Prograf (Tacrolimus) 1 Mg Capsule 4 Cap PO DAILY 01/24/18 Reported Lantus Solostar (Insulin Glargine,Hum.rec.anlog) 100 Unit/1 Ml Insuln.pen 4 Unit SQ DAILYWBKFT 01/24/18 Reported Lantus Solostar (Insulin Glargine,Hum.rec.anlog) 100 Unit/1 Ml Insuln.pen 4 Unit SQ QHS 01/24/18 Reported Amlodipine Besylate 5 Mg Tablet 5 Mg PO DAILY 01/24/18 Reported Clonidine Hcl 0.2 Mg Tablet 1 Tab PO BID 01/24/18 Reported Oxycodone-Acetaminophen 5-325 (Oxycodone Hcl/Acetaminophen) 1 Each Tablet 1 Tab PO PRN Q4HRS PRN 07/15/16 Rx Clopidogrel (Clopidogrel Bisulfate) 75 Mg Tablet 1 Tab PO DAILY 07/15/16 Reported Cellcept (Mycophenolate Mofetil) 250 Mg Capsule 1 Cap PO BID 07/15/16 Reported Pantoprazole Sodium 20 Mg Tablet.dr 20 Mg PO DAILY 07/15/16 Reported Hydrochlorothiazide Capsule (Hydrochlorothiazide) 12.5 Mg Capsule 10 Mg PO BID 07/15/16 Reported Carvedilol 25 Mg Tablet 2 Tab PO DAILYBFRSUP 07/15/[address] chest 1. Consolidating infiltrates in both lungs, greatest in the left lower lobe, likely due to pneumonia or other inflammatory process. 2. There are several small groundglass nodules in the right lower lobe, may be related to the above process, could also be monitored with short-term follow-up CT. 3. Pleural effusions, left greater than right. 4. Distention of the upper abdominal bowel loops, correlate for symptoms of ileus or obstruction. 5. Partially visualized kidneys are very small and atrophic. Electronically signed by: Fahad Portillo MD (01/30/2018 1:43 PM) [facility] Impression . 1. Acute respiratory failure. 2. Abnormal cxr 01/27 with bilateral infiltrates, suspect pneumonia, suspect gram negative/ ct chest c/w pneumonia. Nodules likely inflammatory 3. suspect Acute on chronic heart failure. 4. End-stage renal disease, status post renal transplant. 5. Immunocompromised. 6. Accelerated hypertension. 7. Type 2 diabetes. 8. Anemia Plan . SOA TODAY. REPEAT CXR TODAY PRN BIPAP CT CHEST C/W PNEUMONIA ABX MONITOR H/H D/W RENAL. ILEUS ON CT/ EATING PO/ HAVING BM/ WILL LEAVE UP TO PCP FOR ? GI CONSULT AMBULATE WITH PROSTHESIS D/W KEENAN HOWE MD Feb 02, 2018 09:02
--- NOTE | 2018-02-02 09:04 | PDOC ---
Infectious Disease Note Subjective Subjective Tired and weak feeling this morning, Hgb 6.8 Not very hungry No F/C/S ROS ROS per HPI otherwise neg Vital Sign Vital Signs Vital Signs Date Time Temp Pulse Resp B/P (MAP) Pulse Ox O2 Delivery O2 Flow Rate FiO2 02/02/18 08:11 92 197/81 02/02/18 07:35 98.6 18 97 Room Air 98.6 Physical Exam PHYSICAL EXAM GENERAL: Propped up in bed, alert, NAD HEENT: Left eye prosthesis. Oral cavity, pharynx pink, dry. No lesions seen. NECK: Supple. LUNGS: Decreased aeration bases, nonlabored HEART: S1 and S2. ABDOMEN: Bowel sounds active. Soft, nontender. : Whitley in place with clear urine EXTREMITIES: Eulqm-hhl-[id number] amputation bilaterally. No cyanosis. SKIN: Warm, without rash. NEUROLOGIC: Alert and oriented x 3. PIV ok Labs Lab Laboratory Tests Test 02/01/18 11:44 02/01/18 16:52 02/01/18 20:45 02/02/18 03:24 Glucose (Fingerstick) 198 mg/dL (70-99) 73 mg/dL (70-99) 122 mg/dL (70-99) 158 mg/dL (70-99) Test 02/02/18 04:00 02/02/18 07:33 White Blood Count 5.3 x10^3/uL (4.0-11.0) Red Blood Count 2.24 x10^6/uL (4.30-5.70) Hemoglobin 6.8 g/dL (13.0-17.5) Hematocrit 19.7 % (39.0-53.0) Mean Corpuscular Volume 88 fL (79-100) Mean Corpuscular Hemoglobin 31 pg (25-35) Mean Corpuscular Hemoglobin Concent 35 g/dL (31-37) Red Cell Distribution Width 13.3 % (11.5-14.5) Platelet Count 286 x10^3/uL (140-400) Neutrophils (%) (Auto) 61 % (31-73) Lymphocytes (%) (Auto) 26 % (24-48) Monocytes (%) (Auto) 10 % (0-9) Eosinophils (%) (Auto) 3 % (0-3) Basophils (%) (Auto) 0 % (0-3) Neutrophils # (Auto) 3.2 x10^3uL (1.8-7.7) Lymphocytes # (Auto) 1.4 x10^3/uL (1.0-4.8) Monocytes # (Auto) 0.5 x10^3/uL (0.0-1.1) Eosinophils # (Auto) 0.2 x10^3/uL (0.0-0.7) Basophils # (Auto) 0.0 x10^3/uL (0.0-0.2) Sodium Level 140 mmol/L (136-145) Potassium Level 4.3 mmol/L (3.5-5.1) Chloride Level 108 mmol/L (98-107) Carbon Dioxide Level 23 mmol/L (21-32) Anion Gap 9 (6-14) Blood Urea Nitrogen 23 mg/dL (8-26) Creatinine 2.2 mg/dL (0.7-1.3) Estimated GFR (Cockcroft-Gault) 31.8 Glucose Level 170 mg/dL (70-99) Calcium Level 8.8 mg/dL (8.5-10.1) Glucose (Fingerstick) 172 mg/dL (70-99) Micro Objective Assessment Acute respiratory failure with LLL infiltrate. flu screen neg, mycoplasma neg, sputum poor quality, clinically improving -EBV and CMV PCR = neg Anemia Fever - Resolved. cultures neg Pyuria UC neg Chronic immunosuppression. h/o renal transplant 2007 Allergy PCN/amoxicillin - rash. Tolerated Zosyn w/o problems Acute hypoxic respiratory failure - venti mask 50% FiO2 -Influenza screen neg Acute on chronic CHF ESRD s/p renal transplant. now worsening creat Accelerated hypertension. PVD. h/o BKA bilat DM type I (since age 14 months) Diarrhea. c. diff neg 02/01 Plan Plan of Care Empiric cefepime, (01/28) renal dosing wean, soon Previously on Zyvox and Zosyn (01/26) f/u crypto ag Blood transfusion underway - may have low grade temp with PRBCs Supportive care Attending Co-Sign Attending Co-Sign The patient was seen and interviewed as well as examined at the bedside. The chart was reviewed. The case was discussed. Agree with the plan of care. SHIVA MEANS APRN Feb 02, 2018 09:04 MADYSON PRADO MD Feb 02, 2018 13:55
--- NOTE | 2018-02-02 09:58 | RAD ---
EXAM: CHEST 1 VIEW History: Dyspnea COMPARISON: 01/29/2018 TECHNIQUE: Single portable radiograph of the chest FINDINGS: Low lung volumes and technique accentuates heart size and pulmonary vascularity. Bibasilar lung airspace opacities likely atelectasis or infiltrates slightly improved compared to prior exam. Mild improved congestive changes IMPRESSION: 1. Bibasilar lung airspace opacities or infiltrates slightly improved compared to prior exam. 2. Mildly improved congestive changes. Electronically signed by: Jerry Mascorro MD (02/02/2018 9:55 AM) [facility]
[2018-02-02] MEDS: oxyCODONE/APAP 5/325 1 TAB TABLET PO PRN (10:39)
[2018-02-02] MEDS ORDERED: LACTOBACILLUS RHAMNOSUS GG 1 CAPSULE. PO SCH (11:00)
--- NOTE | 2018-02-02 11:31 | PDOC ---
Renal-Progress Notes Subjective Notes Notes FEELING BETTER History of Present Illness Hx of present illness STABLE Vitals Vitals Vital Signs Date Time Temp Pulse Resp B/P (MAP) Pulse Ox O2 Delivery O2 Flow Rate FiO2 02/02/18 10:49 98.4 83 18 123/59 (80) 96 Room Air 98.4 02/02/18 10:39 2.0 Weight Weight [ ] I.O. Intake and Output Intake and Output 02/02/18 07:00 Intake Total 1340 ml Output Total 1200 ml Balance 140 ml Intake Oral 1340 ml Output Urine Total 1200 ml # Bowel Movements 3 Labs Labs Laboratory Tests Test 02/01/18 11:44 02/01/18 16:52 02/01/18 20:45 02/02/18 03:24 Glucose (Fingerstick) 198 mg/dL (70-99) 73 mg/dL (70-99) 122 mg/dL (70-99) 158 mg/dL (70-99) Test 02/02/18 04:00 02/02/18 07:33 White Blood Count 5.3 x10^3/uL (4.0-11.0) Red Blood Count 2.24 x10^6/uL (4.30-5.70) Hemoglobin 6.8 g/dL (13.0-17.5) Hematocrit 19.7 % (39.0-53.0) Mean Corpuscular Volume 88 fL (79-100) Mean Corpuscular Hemoglobin 31 pg (25-35) Mean Corpuscular Hemoglobin Concent 35 g/dL (31-37) Red Cell Distribution Width 13.3 % (11.5-14.5) Platelet Count 286 x10^3/uL (140-400) Neutrophils (%) (Auto) 61 % (31-73) Lymphocytes (%) (Auto) 26 % (24-48) Monocytes (%) (Auto) 10 % (0-9) Eosinophils (%) (Auto) 3 % (0-3) Basophils (%) (Auto) 0 % (0-3) Neutrophils # (Auto) 3.2 x10^3uL (1.8-7.7) Lymphocytes # (Auto) 1.4 x10^3/uL (1.0-4.8) Monocytes # (Auto) 0.5 x10^3/uL (0.0-1.1) Eosinophils # (Auto) 0.2 x10^3/uL (0.0-0.7) Basophils # (Auto) 0.0 x10^3/uL (0.0-0.2) Sodium Level 140 mmol/L (136-145) Potassium Level 4.3 mmol/L (3.5-5.1) Chloride Level 108 mmol/L (98-107) Carbon Dioxide Level 23 mmol/L (21-32) Anion Gap 9 (6-14) Blood Urea Nitrogen 23 mg/dL (8-26) Creatinine 2.2 mg/dL (0.7-1.3) Estimated GFR (Cockcroft-Gault) 31.8 Glucose Level 170 mg/dL (70-99) Calcium Level 8.8 mg/dL (8.5-10.1) Glucose (Fingerstick) 172 mg/dL (70-99) Micro Micro Microbiology 01/26/18 Blood Culture - Final, Complete NO GROWTH AFTER 5 DAYS 01/28/18 - Final, Complete 01/28/18 - Final, Complete 01/28/18 - Final, Complete 01/28/18 - Final, Complete 01/28/18 - Final, Complete 01/28/18 Gram Stain Evaluation - Final, Complete 01/28/18 Sputum Culture - Final, Complete 01/27/18 Urine Culture - Final, Complete 01/27/18 Urine Culture Result 1 ([place]) - Final, Complete Review of Systems Constitutional: yes: weakness, alert, oriented Ears/Nose/Throat: Yes: no symptom reported Eyes: Yes: no symptom reported Pulmonary: Yes no symptom reported Cardiovascular: Yes no symptom reported Gastrointestional: Yes: nausea, vomiting Genitourinary: Yes: no symptom reported Musculoskeletal: Yes: no symptom reported Skin: Yes no symptom reported Psychiatric/Neurological: Yes: no symptom reported Endocrine: Yes: no symptom reported Physical Exam General Appearance: no apparent distress Skin: warm Respiratory: bilateral CTA Heart: S1S2, no thrills Abdomen: soft, bowel sounds present Genitourinary: bladder flat Extremities: pulses present Neurology: alert, oriented, follow commands Musculoskeletal: Osteoarthritis Assessment Assessment IMP HX OF RENAL TX 2008 CKD STAGE 3 WITH CR OF ABOUT 1.5 JAMAL - IMPROVING WITH CR 4.4 TO 2.2 DEHYDRATION DUE TO N/V-RESOLVED DM II HTN HX ANEMIA PLAN AVOID PRBC ENC PO CONT WITH IMMUNOSUPPRESSION GOT ARANESP EARLIER THIS WK UPDATED FAMILY MOR PADILLA MD Feb 02, 2018 11:31
[2018-02-02] MEDS: MORPHINE SULFATE 2 MG/ML VIAL. IV PRN (13:38)
[2018-02-02] MEDS: fentaNYL PF VIAL 100 MCG/2 ML VIAL IV PRN ×2 (14:49→20:55)
[2018-02-02] MEDS: INSULIN GLARGINE 300 UNITS/3 ML INSULN.PEN. SQ SCH (21:09)
[2018-02-03] MEDS: diphenhydrAMINE 50 MG/ML VIAL IVP PRN (01:49)
[2018-02-03 03:11] VITALS: BP 157/86
[2018-02-03 05:32] LABS: BASO % 1 % (0-3); EOS # 0.2 x10^3/uL (0.0-0.7); EOS % 4 % (0-3); LYMPH # 1.3 x10^3/uL (1.0-4.8); LYMPH % 24 % (24-48); MEAN CORPUSCULAR HEMOGLOBIN 30 pg (25-35); MEAN CORPUSCULAR HGB CONC 35 g/dL (31-37); MEAN CORPUSCULAR VOLUME 88 fL (79-100); MONO # 0.6 x10^3/uL (0.0-1.1); MONO % 11 % (0-9); NEUT # 3.3 x10^3uL (1.8-7.7); NEUT % 61 % (31-73); PLATELET COUNT 291 x10^3/uL (140-400); RED BLOOD COUNT 2.22 x10^6/uL (4.30-5.70); RED CELL DISTRIBUTION WIDTH 13.1 % (11.5-14.5); WHITE BLOOD COUNT 5.5 x10^3/uL (4.0-11.0)
[2018-02-03 05:36] LABS: CALCIUM 8.9 mg/dL (8.5-10.1); CREATININE 1.9 mg/dL (0.7-1.3); GFR 37.7; POTASSIUM 4.5 mmol/L (3.5-5.1)
[2018-02-03 05:44] LABS: HEMATOCRIT 19.5 % (39.0-53.0); HEMOGLOBIN 6.7 g/dL (13.0-17.5)
[2018-02-03 07:10] VITALS: BP 179/71
--- NOTE | 2018-02-03 07:26 | PDOC ---
PROGRESS NOTES Chief Complaint Chief Complaint Hypokalemia Constipation, now with diarrhea JAMAL, approaching baseline Cr (1.9) Hospital acquired pneumonia HTN Severe anemia H/o cluster headache H/o renal transplant 2007 H/o DM1, hypoglycemic intermittently H/o HLP H/o CAD History of Present Illness History of Present Illness Admitted for HTN urgency, JAMAL, hypokalemia, HCAP Pt seen and examined while sitting upright in bed He confirmed he is feeling better, but feeling very fatigued today CXR looks improved. Hb dropped to 6.7 d/w nephrology to hold off on transfusion at this time, will repeat, no obvious source of blood loss Discussed with RN A/P: Hypokalemia - improving, nephrology following Constipation, now with diarrhea - improving JAMAL, approaching baseline Cr (1.9) Hospital acquired pneumonia - ID following, was on zyvox and zosyn, now on cefepime HTN - Up again today Severe anemia - Hb 6.7, will hold off on transfusion at this time H/o cluster headache H/o renal transplant 2007 - stable on cellcept H/o DM1, hypoglycemic glucose down to 34 - will monitor H/o HLP H/o CAD Will cont inpatient care Vitals Vitals Vital Signs Date Time Temp Pulse Resp B/P (MAP) Pulse Ox O2 Delivery O2 Flow Rate FiO2 02/03/18 03:11 98.6 90 18 157/86 (109) 100 Nasal Cannula 2.0 98.6 Physical Exam Physical Exam GENERAL: Propped up in bed, alert, NAD HEENT: Left eye prosthesis. Oral cavity, pharynx pink, dry. No lesions seen. NECK: Supple. LUNGS: Decreased aeration bases, nonlabored HEART: S1 and S2. ABDOMEN: Bowel sounds active. Soft, nontender. : Whitley in place with clear urine EXTREMITIES: [id number] amputation bilaterally. No cyanosis. SKIN: Warm, without rash. NEUROLOGIC: Alert and oriented x 3. PIV ok General: Alert, Oriented X3, No acute distress Heart: Regular rate, Normal S1, Normal S2 Lungs: Clear Abdomen: Normal bowel sounds, Soft, No tenderness Extremities: No cyanosis, Other (bilateral BKAs) Skin: No rashes, No breakdown, No significant lesion Labs LABS Laboratory Tests Test 02/02/18 07:33 02/02/18 11:56 11/3/18 12:29 02/02/18 16:45 Glucose (Fingerstick) 172 mg/dL (70-99) 68 mg/dL (70-99) 89 mg/dL (70-99) 111 mg/dL (70-99) Test 02/02/18 20:45 02/03/18 03:39 02/03/18 04:45 02/03/18 07:11 Glucose (Fingerstick) 185 mg/dL (70-99) 114 mg/dL (70-99) 137 mg/dL (70-99) White Blood Count 5.5 x10^3/uL (4.0-11.0) Red Blood Count 2.22 x10^6/uL (4.30-5.70) Hemoglobin 6.7 g/dL (13.0-17.5) Hematocrit 19.5 % (39.0-53.0) Mean Corpuscular Volume 88 fL (79-100) Mean Corpuscular Hemoglobin 30 pg (25-35) Mean Corpuscular Hemoglobin Concent 35 g/dL (31-37) Red Cell Distribution Width 13.1 % (11.5-14.5) Platelet Count 291 x10^3/uL (140-400) Neutrophils (%) (Auto) 61 % (31-73) Lymphocytes (%) (Auto) 24 % (24-48) Monocytes (%) (Auto) 11 % (0-9) Eosinophils (%) (Auto) 4 % (0-3) Basophils (%) (Auto) 1 % (0-3) Neutrophils # (Auto) 3.3 x10^3uL (1.8-7.7) Lymphocytes # (Auto) 1.3 x10^3/uL (1.0-4.8) Monocytes # (Auto) 0.6 x10^3/uL (0.0-1.1) Eosinophils # (Auto) 0.2 x10^3/uL (0.0-0.7) Basophils # (Auto) 0.0 x10^3/uL (0.0-0.2) Sodium Level 140 mmol/L (136-145) Potassium Level 4.5 mmol/L (3.5-5.1) Chloride Level 108 mmol/L (98-107) Carbon Dioxide Level 24 mmol/L (21-32) Anion Gap 8 (6-14) Blood Urea Nitrogen 18 mg/dL (8-26) Creatinine 1.9 mg/dL (0.7-1.3) Estimated GFR (Cockcroft-Gault) 37.7 Glucose Level 111 mg/dL (70-99) Calcium Level 8.9 mg/dL (8.5-10.1) Assessment and Plan Assessmemt and Plan Problems Medical Problems: (1) Hypertensive urgency Status: Acute (2) Intractable nausea and vomiting Status: Acute (3) Migraine headache Status: Acute Comment Review of Relevant I have reviewed the following items nadyia (where applicable) has been applied. Labs Laboratory Tests Test 02/01/18 08:31 02/01/18 11:44 02/01/18 16:52 02/01/18 20:45 Glucose (Fingerstick) 78 mg/dL (70-99) 198 mg/dL (70-99) 73 mg/dL (70-99) 122 mg/dL (70-99) Test 02/02/18 03:24 02/02/18 04:00 02/02/18 07:33 02/02/18 11:56 Glucose (Fingerstick) 158 mg/dL (70-99) 172 mg/dL (70-99) 68 mg/dL (70-99) White Blood Count 5.3 x10^3/uL (4.0-11.0) Red Blood Count 2.24 x10^6/uL (4.30-5.70) Hemoglobin 6.8 g/dL (13.0-17.5) Hematocrit 19.7 % (39.0-53.0) Mean Corpuscular Volume 88 fL (79-100) Mean Corpuscular Hemoglobin 31 pg (25-35) Mean Corpuscular Hemoglobin Concent 35 g/dL (31-37) Red Cell Distribution Width 13.3 % (11.5-14.5) Platelet Count 286 x10^3/uL (140-400) Neutrophils (%) (Auto) 61 % (31-73) Lymphocytes (%) (Auto) 26 % (24-48) Monocytes (%) (Auto) 10 % (0-9) Eosinophils (%) (Auto) 3 % (0-3) Basophils (%) (Auto) 0 % (0-3) Neutrophils # (Auto) 3.2 x10^3uL (1.8-7.7) Lymphocytes # (Auto) 1.4 x10^3/uL (1.0-4.8) Monocytes # (Auto) 0.5 x10^3/uL (0.0-1.1) Eosinophils # (Auto) 0.2 x10^3/uL (0.0-0.7) Basophils # (Auto) 0.0 x10^3/uL (0.0-0.2) Sodium Level 140 mmol/L (136-145) Potassium Level 4.3 mmol/L (3.5-5.1) Chloride Level 108 mmol/L (98-107) Carbon Dioxide Level 23 mmol/L (21-32) Anion Gap 9 (6-14) Blood Urea Nitrogen 23 mg/dL (8-26) Creatinine 2.2 mg/dL (0.7-1.3) Estimated GFR (Cockcroft-Gault) 31.8 Glucose Level 170 mg/dL (70-99) Calcium Level 8.8 mg/dL (8.5-10.1) Test 02/02/18 12:29 02/02/18 16:45 02/02/18 20:45 02/03/18 03:39 Glucose (Fingerstick) 89 mg/dL (70-99) 111 mg/dL (70-99) 185 mg/dL (70-99) 114 mg/dL (70-99) Test 02/03/18 04:45 02/03/18 07:11 White Blood Count 5.5 x10^3/uL (4.0-11.0) Red Blood Count 2.22 x10^6/uL (4.30-5.70) Hemoglobin 6.7 g/dL (13.0-17.5) Hematocrit 19.5 % (39.0-53.0) Mean Corpuscular Volume 88 fL (79-100) Mean Corpuscular Hemoglobin 30 pg (25-35) Mean Corpuscular Hemoglobin Concent 35 g/dL (31-37) Red Cell Distribution Width 13.1 % (11.5-14.5) Platelet Count 291 x10^3/uL (140-400) Neutrophils (%) (Auto) 61 % (31-73) Lymphocytes (%) (Auto) 24 % (24-48) Monocytes (%) (Auto) 11 % (0-9) Eosinophils (%) (Auto) 4 % (0-3) Basophils (%) (Auto) 1 % (0-3) Neutrophils # (Auto) 3.3 x10^3uL (1.8-7.7) Lymphocytes # (Auto) 1.3 x10^3/uL (1.0-4.8) Monocytes # (Auto) 0.6 x10^3/uL (0.0-1.1) Eosinophils # (Auto) 0.2 x10^3/uL (0.0-0.7) Basophils # (Auto) 0.0 x10^3/uL (0.0-0.2) Sodium Level 140 mmol/L (136-145) Potassium Level 4.5 mmol/L (3.5-5.1) Chloride Level 108 mmol/L (98-107) Carbon Dioxide Level 24 mmol/L (21-32) Anion Gap 8 (6-14) Blood Urea Nitrogen 18 mg/dL (8-26) Creatinine 1.9 mg/dL (0.7-1.3) Estimated GFR (Cockcroft-Gault) 37.7 Glucose Level 111 mg/dL (70-99) Calcium Level 8.9 mg/dL (8.5-10.1) Glucose (Fingerstick) 137 mg/dL (70-99) Laboratory Tests Test 02/02/18 07:33 02/02/18 11:56 02/02/18 12:29 02/02/18 16:45 Glucose (Fingerstick) 172 mg/dL (70-99) 68 mg/dL (70-99) 89 mg/dL (70-99) 111 mg/dL (70-99) Test 02/02/18 20:45 02/03/18 03:39 02/03/18 04:45 02/03/18 07:11 Glucose (Fingerstick) 185 mg/dL (70-99) 114 mg/dL (70-99) 137 mg/dL (70-99) White Blood Count 5.5 x10^3/uL (4.0-11.0) Red Blood Count 2.22 x10^6/uL (4.30-5.70) Hemoglobin 6.7 g/dL (13.0-17.5) Hematocrit 19.5 % (39.0-53.0) Mean Corpuscular Volume 88 fL (79-100) Mean Corpuscular Hemoglobin 30 pg (25-35) Mean Corpuscular Hemoglobin Concent 35 g/dL (31-37) Red Cell Distribution Width 13.1 % (11.5-14.5) Platelet Count 291 x10^3/uL (140-400) Neutrophils (%) (Auto) 61 % (31-73) Lymphocytes (%) (Auto) 24 % (24-48) Monocytes (%) (Auto) 11 % (0-9) Eosinophils (%) (Auto) 4 % (0-3) Basophils (%) (Auto) 1 % (0-3) Neutrophils # (Auto) 3.3 x10^3uL (1.8-7.7) Lymphocytes # (Auto) 1.3 x10^3/uL (1.0-4.8) Monocytes # (Auto) 0.6 x10^3/uL (0.0-1.1) Eosinophils # (Auto) 0.2 x10^3/uL (0.0-0.7) Basophils # (Auto) 0.0 x10^3/uL (0.0-0.2) Sodium Level 140 mmol/L (136-145) Potassium Level 4.5 mmol/L (3.5-5.1) Chloride Level 108 mmol/L (98-107) Carbon Dioxide Level 24 mmol/L (21-32) Anion Gap 8 (6-14) Blood Urea Nitrogen 18 mg/dL (8-26) Creatinine 1.9 mg/dL (0.7-1.3) Estimated GFR (Cockcroft-Gault) 37.7 Glucose Level 111 mg/dL (70-99) Calcium Level 8.9 mg/dL (8.5-10.1) Microbiology 01/26/18 Blood Culture - Final, Complete NO GROWTH AFTER 5 DAYS 01/28/18 - Final, Complete 01/28/18 - Final, Complete 01/28/18 - Final, Complete 01/28/18 - Final, Complete 01/28/18 - Final, Complete 01/28/18 Gram Stain Evaluation - Final, Complete 01/28/18 Sputum Culture - Final, Complete 01/27/18 Urine Culture - Final, Complete 01/27/18 Urine Culture Result 1 ([place]) - Final, Complete Medications Current Medications Sodium Chloride 1,000 ml @ 1,000 mls/hr Q1H IV Last administered on at 17:54; Start 01/23/18 at 17:21; Stop 01/23/18 at 18:20; Status DC Prochlorperazine Edisylate (Compazine) 10 mg 1X ONCE IV Last administered on 01/23/18at 17:55; Start 01/23/18 at 17:30; Stop 01/23/18 at 17:31; Status DC Diphenhydramine HCl (Benadryl) 25 mg 1X ONCE IVP Last administered on at 17:57; Start 01/23/18 at 17:30; Stop 01/23/18 at 17:31; Status DC Metoclopramide HCl (Reglan Vial) 10 mg 1X ONCE IV Last administered on at 19:24; Start 01/23/18 at 19:15; Stop 01/23/18 at 19:17; Status DC Diphenhydramine HCl (Benadryl) 25 mg 1X ONCE IVP Last administered on at 19:25; Start 01/23/18 at 19:15; Stop 01/23/18 at 19:17; Status DC Metoprolol Tartrate (Lopressor Vial) 5 mg 1X ONCE IVP Last administered on at 19:55; Start 01/23/18 at 19:45; Stop 01/23/18 at 19:46; Status DC Insulin Human Regular (HumuLIN R VIAL) 5 unit 1X ONCE IV Last administered on 01/23/18at 19:55; Start 01/23/18 at 19:45; Stop 01/23/18 at 19:46; Status DC Labetalol HCl (Normodyne Iv Push) 10 mg 1X ONCE IVP ; Start 01/23/18 at 20:30 ; Stop 01/23/18 at 20:31; Status DC Labetalol HCl (Normodyne Iv Push) 10 mg 1X ONCE IVP Last administered on 01/23at 22:29; Start 01/23/18 at 22:00; Stop 01/23/18 at 22:04; Status DC Ondansetron HCl (Zofran) 4 mg PRN Q8HRS PRN IV NAUSEA/VOMITING Last administered on 01/24/18at 00:16; Start 01/23/18 at 22:45; Stop 01/24/18 at 03 :05; Status DC Fentanyl Citrate (Fentanyl 2ml Vial) 50 mcg PRN Q2HR PRN IV PAIN Last administered on 01/24/18at 19:48; Start 01/23/18 at 22:45; Stop 01/24/18 at 22 :44; Status DC Sodium Chloride 1,000 ml @ 100 mls/hr Q10H IV Last administered on 01/24/18at 19:56; Start 01/23/18 at 22:37; Stop 01/24/18 at 22:36; Status DC Labetalol HCl (Normodyne Iv Push) 10 mg PRN Q30MIN PRN IVP SBP>180 Last administered on 01/24/18at 00:07; Start 01/23/18 at 22:45; Stop 01/24/18 at 00 :49; Status DC Insulin Human Lispro (HumaLOG) 0-5 UNITS TIDWMEALS SQ Last administered on 02/02at 08:33; Start 01/24/18 at 08:00 Dextrose (Dextrose 50%-Water Syringe) 12.5 gm PRN Q15MIN PRN IV SEE COMMENTS Last administered on 02/01/18at 03:26; Start 01/23/18 at 23:00 Labetalol HCl (Normodyne Iv Push) 20 mg PRN Q2HR PRN IVP HYPERTENSION, SEE COMMENTS Last administered on 01/24/18at 02:12; Start 01/24/18 at 00:45; Stop 01/25/18 at 14:21; Status DC Carvedilol (Coreg) 6.25 mg 1X ONCE PO ; Start 01/24/18 at 00:45; Stop at 00:49; Status DC Amlodipine Besylate (Norvasc) 5 mg 1X ONCE PO Last administered on 01/24/18at 01:00; Start 01/24/18 at 00:45; Stop 01/24/18 at 00:49; Status DC Oxycodone/ Acetaminophen (Percocet 5/325) 1 tab PRN Q4HRS PRN PO PAIN Last administered on 02/02/18at 10:39; Start 01/24/18 at 01:00 Carvedilol (Coreg) 12.5 mg 1X ONCE PO Last administered on 01/24/18at 01:05; Start 01/24/18 at 01:00; Stop 01/24/18 at 01:04; Status DC Nicardipine HCl 50 mg/Sodium Chloride 270 ml @ 32.4 mls/hr CONT PRN IV SEE I/ O RECORD Last administered on 01/27/18at 05:03; Start 01/24/18 at 03:00 Acetaminophen (Tylenol) 650 mg PRN Q6HRS PRN PEG MILD PAIN / TEMP; Start 01/24 at 03:15; Status Cancel Ondansetron HCl (Zofran) 4 mg PRN Q6HRS PRN IV NAUSEA/VOMITING, 1ST CHOICE Last administered on 01/26/18at 22:04; Start 01/24/18 at 03:15 Metoclopramide HCl (Reglan Vial) 5 mg PRN Q6HRS PRN IV NAUSEA/VOMITING, 3RD CHOICE Last administered on 01/25/18at 11:53; Start 01/24/18 at 03:15; Stop at 15:35; Status DC Prochlorperazine Edisylate (Compazine) 10 mg PRN Q6HRS PRN IV NAUSEA/VOMITING, 2ND CHOICE Last administered on 01/27/18at 06:31; Start 01/24/18 at 03:15 Pantoprazole Sodium (Protonix) 40 mg 1X ONCE PO Last administered on at 03:13; Start 01/24/18 at 03:30; Stop 01/24/18 at 03:31; Status DC Acetaminophen (Tylenol) 650 mg PRN Q6HRS PRN PO MIGRAINE HEADACHE Last administered on 02/02/18at 08:10; Start 01/24/18 at 03:15 Insulin Human Lispro (HumaLOG) 10 units 1X ONCE SQ Last administered on at 05:09; Start 01/24/18 at 05:00; Stop 01/24/18 at 05:02; Status DC Magnesium Sulfate/ Dextrose 100 ml @ 100 mls/hr 1X ONCE IV Last administered on 01/24/18at 12:01; Start 01/24/18 at 09:15; Stop 01/24/18 at 10:14; Status DC Metoprolol Tartrate (Lopressor Vial) 5 mg Q6HRS IVP Last administered on at 11:08; Start 01/24/18 at 11:00; Stop 01/25/18 at 11:41; Status DC Trimethobenzamide HCl (Tigan Im) 200 mg PRN Q6HRS PRN IM NAUSEA/VOMITING; Start 01/24/18 at 11:00 Morphine Sulfate (Morphine Sulfate) 2 mg PRN Q2HR PRN IV MODERATE PAIN Last administered on 02/02/18at 13:38; Start 01/24/18 at 11:00 Amlodipine Besylate (Norvasc) 5 mg DAILY PO Last administered on 02/02/18at 08: 09; Start 01/24/18 at 11:30 Clonidine HCl (Catapres) 0.2 mg BID PO Last administered on 02/02/18at 20:58; Start 01/24/18 at 11:30 Clopidogrel Bisulfate (Plavix) 75 mg DAILY PO Last administered on 02/02/18at 08 :11; Start 01/24/18 at 11:30 Insulin Glargine (Lantus) 4 units DAILYWBKFT SQ ; Start 01/24/18 at 11:30; Stop 01/24/18 at 11:30; Status DC Insulin Glargine (Lantus) 4 units QHS SQ ; Start 01/24/18 at 21:00; Status UNV Carvedilol (Coreg) 25 mg BIDWMEALS PO Last administered on 02/02/18at 17:29; Start 01/24/18 at 17:00 Non-Formulary Medication (Hydrochlorothiazide (Hydrochlorothiazide Capsule ) ) 10 mg BID PO ; Start 01/24/18 at 21:00; Stop 01/24/18 at 21:00; Status DC Mycophenolate Mofetil (Cellcept) 250 mg BID PO Last administered on 01/24/18at 12:01; Start 01/24/18 at 12:00; Stop 01/24/18 at 15:58; Status DC Pantoprazole Sodium (Protonix) 40 mg DAILYAC PO ; Start 01/24/18 at 11:30; Stop 01/24/18 at 12:01; Status DC Tacrolimus (Prograf) 2 mg BID PO Last administered on 01/24/18at 12:02; Start 01/24/18 at 12:00; Stop 01/24/18 at 13:07; Status DC Insulin Glargine (Lantus) 4 units BID SQ Last administered on 01/29/18at 09:27 ; Start 01/24/18 at 11:30; Stop 01/29/18 at 11:29; Status DC Pantoprazole Sodium (PROTONIX VIAL for IV PUSH) 40 mg DAILYAC IVP Last administered on 01/25/18at 09:34; Start 01/24/18 at 13:00; Stop 01/25/18 at 15 :35; Status DC Tacrolimus (Prograf) 4 mg DAILY PO ; Start 01/25/18 at 09:00; Stop 01/25/18 at 09:00; Status DC Tacrolimus (Prograf) 3 mg QHS PO ; Start 01/24/18 at 21:00; Stop 01/24/18 at 21:00; Status DC Tacrolimus (Prograf) 2 mg DAILY SL Last administered on 01/27/18at 07:59; Start 01/25/18 at 09:00; Stop 01/27/18 at 17:15; Status DC Tacrolimus (Prograf) 1 mg QHS SL Last administered on 01/26/18at 21:33; Start 01/24/18 at 21:00; Stop 01/27/18 at 17:13; Status DC Sodium Chloride (Saline Mist Nasal) 1 bryan PRN Q1HR PRN NS NASAL CONGESTION; Start 01/24/18 at 15:00; Stop 01/24/18 at 17:28; Status DC Gabapentin (Neurontin) 100 mg TID PO Last administered on 02/02/18at 20:57; Start 01/24/18 at 16:00 Mycophenolate Mofetil 250 mg/ Dextrose 42 ml @ 21 mls/hr Q12H IV Last administered on 01/27/18at 09:33; Start 01/24/18 at 21:00; Stop 01/27/18 at 14 :11; Status DC Tacrolimus (Prograf) 0.5 mg QHS SL Last administered on 01/26/18at 21:33; Start 01/24/18 at 21:00; Stop 01/27/18 at 17:13; Status DC Sodium Chloride (Saline Mist Nasal) 1 bryan PRN Q1HR PRN NS NASAL CONGESTION; Start 01/24/18 at 17:30 Sodium Chloride 1,000 ml @ 75 mls/hr [id number] IV ; Start 01/25/18 at 07:30; Stop 01/27/18 at 15:58; Status DC Fentanyl Citrate (Fentanyl 2ml Vial) 50 mcg PRN Q3HRS PRN IV SEVERE PAIN Last administered on 02/02/18at 20:55; Start 01/25/18 at 09:15 Sodium Chloride 1,000 ml @ 75 mls/hr [id number] IV Last administered on at 09:35; Start 01/25/18 at 09:15; Stop 01/27/18 at 15:58; Status DC Metoprolol Tartrate (Lopressor Vial) 7.5 mg Q6HRS IVP ; Start 01/25/18 at 18:00 ; Stop 01/25/18 at 18:00; Status DC Clonidine HCl (Catapres Tts-3) 1 patch WEEKLY TD Last administered on at 09:45; Start 01/25/18 at 13:00 Labetalol HCl (Normodyne Iv Push) 20 mg PRN Q4HRS PRN IVP HYPERTENSION, SEE COMMENTS Last administered on 02/02/18at 08:06; Start 01/25/18 at 13:00 Ringer's Solution 1,000 ml @ 30 mls/hr Q24H IV ; Start 01/25/18 at 15:15; Status Cancel Propofol 20 ml @ As Directed STK-MED ONCE IV ; Start 01/25/18 at 15:07; Stop 01/25/18 at 15:08; Status DC Lidocaine HCl (Xylocaine-Mpf 1% 2ml Vial) 2 ml STK-MED ONCE .ROUTE ; Start at 15:07; Stop 01/25/18 at 15:08; Status DC Sodium Chloride 1,000 ml @ 0 mls/hr Q0M IV Last administered on 01/25/18at 15: 13; Start 01/25/18 at 15:15; Stop 01/25/18 at 15:43; Status DC Metoclopramide HCl (Reglan Vial) 5 mg Q6HRS IV Last administered on 01/28/18at 06:02; Start 01/25/18 at 18:00; Stop 01/28/18 at 09:59; Status DC Pantoprazole Sodium (PROTONIX VIAL for IV PUSH) 40 mg BIDAC IVP Last administered on 01/28/18at 08:59; Start 01/25/18 at 16:30; Stop 01/28/18 at 09 :59; Status DC Levofloxacin/ Dextrose 100 ml @ 100 mls/hr Q24H IV ; Start 01/26/18 at 08:30; Stop 01/26/18 at 09:32; Status DC Levalbuterol HCl (Xopenex) 1.25 mg PRN Q6HRS PRN NEB SHORTNESS OF BREATH Last administered on 01/27/18at 12:19; Start 01/26/18 at 08:45 Piperacillin Sod/ Tazobactam Sod (Zosyn Per Pharmacy) 1 each PRN DAILY PRN MC SEE COMMENTS; Start 01/26/18 at 10:00; Stop 01/28/18 at 10:56; Status DC Furosemide (Lasix) 40 mg DAILY IVP Last administered on 01/28/18at 08:59; Start 01/26/18 at 10:30; Stop 01/31/18 at 15:53; Status DC Piperacillin Sod/ Tazobactam Sod 3.375 gm/Sodium Chloride 50 ml @ 100 mls/hr Q6HRS IV Last administered on 01/28/18at 06:03; Start 01/26/18 at 11:00; Stop 01/28/18 at 10:46; Status DC Linezolid/Dextrose 300 ml @ 300 mls/hr Q12HR IV Last administered on at 20:11; Start 01/27/18 at 10:00; Stop 01/30/18 at 08:30; Status DC Mycophenolate Mofetil (Cellcept) 250 mg BID PO Last administered on 02/02/18at 20:57; Start 01/27/18 at 21:00 Tacrolimus (Prograf) 3 mg QHS PO Last administered on 01/29/18at 20:10; Start 01/27/18 at 21:00; Stop 01/30/18 at 05:04; Status DC Tacrolimus (Prograf) 4 mg DAILY PO Last administered on 01/30/18at 08:18; Start 01/28/18 at 09:00; Stop 01/30/18 at 12:00; Status DC Doxycycline Hyclate (Vibra-Tab) 100 mg BID PO Last administered on 01/28/18at 09:06; Start 01/28/18 at 09:00; Stop 01/28/18 at 10:52; Status DC Metoclopramide HCl (Reglan Vial) 5 mg QIDACHS IV ; Start 01/28/18 at 11:30; Stop 01/28/18 at 11:30; Status DC Pantoprazole Sodium (Protonix) 40 mg BIDAC PO Last administered on 02/02/18at 17 :28; Start 01/28/18 at 10:30 Metoclopramide HCl (Reglan Oral Solution) 5 mg QIDACHS PO Last administered on 02/02/18at 20:58; Start 01/28/18 at 11:30 Cefepime HCl 1 gm/ Dextrose 50 ml @ 100 mls/hr DAILY IV ; Start 01/29/18 at 09 :00; Status UNV Cefepime HCl (Maxipime) 1 gm DAILY IVP Last administered on 02/02/18at 08:12; Start 01/28/18 at 12:00 Insulin Human Lispro (HumaLOG) 20 units 1X ONCE SQ Last administered on at 04:39; Start 01/29/18 at 05:00; Stop 01/29/18 at 05:01; Status DC Insulin Glargine (Lantus) 20 units TID SQ ; Start 01/29/18 at 14:00; Stop at 14:00; Status DC Insulin Human Lispro (HumaLOG) 10 units TIDAC SQ Last administered on at 12:24; Start 01/29/18 at 11:30; Stop 01/29/18 at 17:48; Status DC Insulin Glargine (Lantus) 20 units QHS SQ Last administered on 01/30/18at 21:00 ; Start 01/29/18 at 21:00; Stop 01/31/18 at 20:57; Status DC Docusate Sodium (Colace) 100 mg PRN DAILY PRN PO HARD STOOLS Last administered on 01/30/18at 08:16; Start 01/29/18 at 11:45 Polyethylene Glycol (miraLAX PACKET) 17 gm PRN DAILY PRN PO CONSTIPATION Last administered on 01/30/18at 08:20; Start 01/29/18 at 11:45 Insulin Human Lispro (HumaLOG) 6 units TIDAC SQ Last administered on 02/02/18at 08:32; Start 01/30/18 at 07:30 Tacrolimus (Prograf) 3 mg QHS PO Last administered on 02/02/18at 20:57; Start 01/30/18 at 21:00 Tacrolimus (Prograf) 4 mg DAILY PO Last administered on 02/02/18at 08:09; Start 01/31/18 at 09:00 Potassium Chloride (Klor-Con) 40 meq 1X ONCE PO Last administered on at 13:56; Start 01/30/18 at 13:30; Stop 01/30/18 at 13:31; Status DC Magnesium Citrate (Citroma) 296 ml PRN 1X PRN PO CONSTIPATION; Start 01/30/18 at 13:15 Bisacodyl (Dulcolax Supp) 10 mg PRN DAILY PRN IN CONSTIPATION; Start 01/30/18 at 13:15 Darbepoetin Jd (Aranesp) 100 mcg 1X ONCE SQ Last administered on 01/31/18at 10:46; Start 01/31/18 at 09:00; Stop 01/31/18 at 09:01; Status DC Diphenhydramine HCl (Benadryl) 12.5 mg QHS PRN IVP ITCHING Last administered on 02/03/18at 01:49; Start 01/31/18 at 19:15 Insulin Glargine (Lantus) 10 units QHS SQ Last administered on 02/02/18at 21:09 ; Start 01/31/18 at 21:00 Potassium Chloride (Klor-Con) 40 meq 1X ONCE PO Last administered on at 12:30; Start 02/01/18 at 11:30; Stop 02/01/18 at 11:31; Status DC Lactobacillus Rhamnosus (Culturelle) 1 cap BID PO ; Start 02/02/18 at 11:00; Status Cancel Active Scripts Active Oxycodone-Acetaminophen 5-325 (Oxycodone Hcl/Acetaminophen) 1 Each Tablet 1 Tab PO PRN Q4HRS PRN Reported Prograf (Tacrolimus) 1 Mg Capsule 3 Cap PO QHS Prograf (Tacrolimus) 1 Mg Capsule 4 Cap PO DAILY Lantus Solostar (Insulin Glargine,Hum.rec.anlog) 100 Unit/1 Ml Insuln.pen 4 Unit SQ [id number] Lantus Solostar (Insulin Glargine,Hum.rec.anlog) 100 Unit/1 Ml Insuln.pen 4 Unit SQ QHS Amlodipine Besylate 5 Mg Tablet 5 Mg PO DAILY Clonidine Hcl 0.2 Mg Tablet 1 Tab PO BID Clopidogrel (Clopidogrel Bisulfate) 75 Mg Tablet 1 Tab PO DAILY Cellcept (Mycophenolate Mofetil) 250 Mg Capsule 1 Cap PO BID Pantoprazole Sodium 20 Mg Tablet.dr 20 Mg PO DAILY Hydrochlorothiazide Capsule (Hydrochlorothiazide) 12.5 Mg Capsule 10 Mg PO BID Carvedilol 25 Mg Tablet 2 Tab PO DAILYBFRSUP Vitals/I & O Vital Sign - Last 24 Hours 02/02/18 02/02/18 02/02/18 02/02/18 07:35 08:00 08:06 08:09 Temp 98.6 98.6 Pulse 92 92 92 Resp 18 B/P (MAP) 197/81 (119) 197/81 197/81 Pulse Ox 97 O2 Delivery Room Air Nasal Cannula O2 Flow Rate 2.0 02/02/18 02/02/18 02/02/18 02/02/18 08:10 08:11 10:39 10:49 Temp 98.4 98.4 Pulse 92 92 83 Resp 20 18 B/P (MAP) 197/81 197/81 123/59 (80) Pulse Ox 96 O2 Delivery Nasal Cannula Room Air O2 Flow Rate 2.0 02/02/18 02/02/18 02/02/18 02/02/18 12:02 13:38 14:49 14:53 Resp 18 16 16 16 Pulse Ox 96 96 O2 Delivery Nasal Cannula Nasal Cannula Nasal Cannula Nasal Cannula O2 Flow Rate 2.0 2.0 2.0 2.0 02/02/18 02/02/18 02/02/18 02/02/18 15:10 16:35 17:29 19:05 Temp 98.4 98.9 98.4 98.9 Pulse 84 84 86 Resp 18 16 18 B/P (MAP) 135/69 (91) 135/69 161/78 (105) Pulse Ox 96 96 100 O2 Delivery Room Air Nasal Cannula Nasal Cannula O2 Flow Rate 2.0 2.0 02/02/18 02/02/18 02/02/18 02/02/18 20:00 20:55 20:58 23:15 Temp 98.7 98.7 Pulse 86 79 Resp 18 18 B/P (MAP) 161/78 145/72 (96) Pulse Ox 100 O2 Delivery Nasal Cannula Nasal Cannula Nasal Cannula O2 Flow Rate 2.0 2.0 2.0 02/03/18 03:11 Temp 98.6 98.6 Pulse 90 Resp 18 B/P (MAP) 157/86 (109) Pulse Ox 100 O2 Delivery Nasal Cannula O2 Flow Rate 2.0 Intake and Output 02/02/18 02/02/18 02/03/18 15:00 23:00 07:00 Intake Total 240 ml 400 ml 150 ml Output Total 600 ml 850 ml Balance 240 ml -200 ml -700 ml RAN JOE MD Feb 03, 2018 07:25
[2018-02-03] MEDS: INSULIN LISPRO 300 UNITS/3 ML INSULN.PEN. SQ SCH ×6 (07:30→16:37)
[2018-02-03] MEDS: amLODIPine BESYLATE 5 MG TABLET PO SCH (08:23)
[2018-02-03] MEDS: MYCOPHENOLATE MOFETIL 250 MG CAPSULE. PO SCH ×2 (08:23→20:08)
[2018-02-03] MEDS: PANTOPRAZOLE 40 MG TABLET.DR. PO SCH ×2 (08:24→16:50)
[2018-02-03] MEDS: CLOPIDOGREL BISULFATE 75 MG TABLET PO SCH (08:24)
[2018-02-03] MEDS: CARVEDILOL 12.5 MG TABLET. PO SCH ×2 (08:24→16:50)
[2018-02-03] MEDS: cloNIDine HCL 0.2 MG TABLET PO SCH ×2 (08:24→20:09)
[2018-02-03] MEDS: METOCLOPRAMIDE ORAL SOLN 10 MG/10 ML SOLUTION. PO SCH ×4 (08:25→20:14)
[2018-02-03] MEDS: GABAPENTIN 100 MG CAPSULE. PO SCH ×3 (08:25→20:08)
[2018-02-03] MEDS: CEFEPIME HCL IV Push 1 GM VIAL. IVP SCH (08:25)
[2018-02-03] MEDS: fentaNYL PF VIAL 100 MCG/2 ML VIAL IV PRN ×3 (08:26→21:22)
[2018-02-03] MEDS: TACROLIMUS 0.5 MG CAPSULE PO SCH ×2 (08:39→20:08)
--- NOTE | 2018-02-03 09:26 | PDOC ---
Infectious Disease Note Subjective Subjective Feels ok this morning. Mild MARTÍNEZ this am but thinks related to low hemoglobin Didn't get PRBCs yesterday - was cancelled. Remains on O2 -2L Denies cough/SOA/CP No F/C/S/N/V/D ROS ROS per HPI otherwise neg Vital Sign Vital Signs Vital Signs Date Time Temp Pulse Resp B/P (MAP) Pulse Ox O2 Delivery O2 Flow Rate FiO2 02/03/18 08:26 18 100 Nasal Cannula 2.0 02/03/18 08:24 86 179/71 02/03/18 07:10 98.8 98.8 Physical Exam PHYSICAL EXAM GENERAL: Propped up in bed, alert, NAD HEENT: Left eye prosthesis. Oral cavity, pharynx pink, moist. No lesions seen. NECK: Supple. LUNGS: Decreased aeration bases, nonlabored HEART: S1 and S2. ABDOMEN: Bowel sounds active. Soft, nontender. : Whitley in place EXTREMITIES: Qisgv-vbn-ezym amputation bilaterally. No cyanosis. SKIN: Warm, without rash. NEUROLOGIC: Alert and oriented x 3. PIV ok Labs Lab Laboratory Tests Test 02/02/18 11:56 02/02/18 12:29 02/02/18 16:45 02/02/18 20:45 Glucose (Fingerstick) 68 mg/dL (70-99) 89 mg/dL (70-99) 111 mg/dL (70-99) 185 mg/dL (70-99) Test 02/03/18 03:39 02/03/18 04:45 02/03/18 07:11 Glucose (Fingerstick) 114 mg/dL (70-99) 137 mg/dL (70-99) White Blood Count 5.5 x10^3/uL (4.0-11.0) Red Blood Count 2.22 x10^6/uL (4.30-5.70) Hemoglobin 6.7 g/dL (13.0-17.5) Hematocrit 19.5 % (39.0-53.0) Mean Corpuscular Volume 88 fL (79-100) Mean Corpuscular Hemoglobin 30 pg (25-35) Mean Corpuscular Hemoglobin Concent 35 g/dL (31-37) Red Cell Distribution Width 13.1 % (11.5-14.5) Platelet Count 291 x10^3/uL (140-400) Neutrophils (%) (Auto) 61 % (31-73) Lymphocytes (%) (Auto) 24 % (24-48) Monocytes (%) (Auto) 11 % (0-9) Eosinophils (%) (Auto) 4 % (0-3) Basophils (%) (Auto) 1 % (0-3) Neutrophils # (Auto) 3.3 x10^3uL (1.8-7.7) Lymphocytes # (Auto) 1.3 x10^3/uL (1.0-4.8) Monocytes # (Auto) 0.6 x10^3/uL (0.0-1.1) Eosinophils # (Auto) 0.2 x10^3/uL (0.0-0.7) Basophils # (Auto) 0.0 x10^3/uL (0.0-0.2) Sodium Level 140 mmol/L (136-145) Potassium Level 4.5 mmol/L (3.5-5.1) Chloride Level 108 mmol/L (98-107) Carbon Dioxide Level 24 mmol/L (21-32) Anion Gap 8 (6-14) Blood Urea Nitrogen 18 mg/dL (8-26) Creatinine 1.9 mg/dL (0.7-1.3) Estimated GFR (Cockcroft-Gault) 37.7 Glucose Level 111 mg/dL (70-99) Calcium Level 8.9 mg/dL (8.5-10.1) Micro Objective Assessment Acute respiratory failure with LLL infiltrate. clinically improving -flu screen neg, mycoplasma neg, sputum poor quality -EBV and CMV PCR = neg Anemia Fever - Resolved. cultures neg Pyuria UC neg Chronic immunosuppression. h/o renal transplant 2007 Allergy PCN/amoxicillin - rash. Tolerated Zosyn w/o problems Acute hypoxic respiratory failure - venti mask 50% FiO2 -Influenza screen neg Acute on chronic CHF ESRD s/p renal transplant. now worsening creat Accelerated hypertension. PVD. h/o BKA bilat DM type I (since age 14 months) Diarrhea. c. diff neg 02/01 Plan Plan of Care Empiric cefepime, (01/28) renal dosing, wean soon Previously on Zyvox and Zosyn (01/26) f/u crypto ag Supportive care Attending Co-Sign Attending Co-Sign The patient was seen and interviewed as well as examined at the bedside. The chart was reviewed. The case was discussed. Agree with the plan of care. SHIVA MEANS APRN Feb 03, 2018 09:26 MADYSON PRADO MD Feb 03, 2018 12:56
--- NOTE | 2018-02-03 10:12 | PDOC ---
Renal-Progress Notes Subjective Notes Notes STILL VERY TIRED History of Present Illness Hx of present illness STABLE Vitals Vitals Vital Signs Date Time Temp Pulse Resp B/P (MAP) Pulse Ox O2 Delivery O2 Flow Rate FiO2 02/03/18 09:35 18 100 Nasal Cannula 2.0 02/03/18 08:24 86 179/71 02/03/18 07:10 98.8 98.8 Weight Weight [ ] I.O. Intake and Output Intake and Output 02/03/18 07:00 Intake Total 790 ml Output Total 1450 ml Balance -660 ml Intake Oral 790 ml Output Urine Total 1450 ml Labs Labs Laboratory Tests Test 02/02/18 11:56 02/02/18 12:29 02/02/18 16:45 02/02/18 20:45 Glucose (Fingerstick) 68 mg/dL (70-99) 89 mg/dL (70-99) 111 mg/dL (70-99) 185 mg/dL (70-99) Test 02/03/18 03:39 02/03/18 04:45 02/03/18 07:11 Glucose (Fingerstick) 114 mg/dL (70-99) 137 mg/dL (70-99) White Blood Count 5.5 x10^3/uL (4.0-11.0) Red Blood Count 2.22 x10^6/uL (4.30-5.70) Hemoglobin 6.7 g/dL (13.0-17.5) Hematocrit 19.5 % (39.0-53.0) Mean Corpuscular Volume 88 fL (79-100) Mean Corpuscular Hemoglobin 30 pg (25-35) Mean Corpuscular Hemoglobin Concent 35 g/dL (31-37) Red Cell Distribution Width 13.1 % (11.5-14.5) Platelet Count 291 x10^3/uL (140-400) Neutrophils (%) (Auto) 61 % (31-73) Lymphocytes (%) (Auto) 24 % (24-48) Monocytes (%) (Auto) 11 % (0-9) Eosinophils (%) (Auto) 4 % (0-3) Basophils (%) (Auto) 1 % (0-3) Neutrophils # (Auto) 3.3 x10^3uL (1.8-7.7) Lymphocytes # (Auto) 1.3 x10^3/uL (1.0-4.8) Monocytes # (Auto) 0.6 x10^3/uL (0.0-1.1) Eosinophils # (Auto) 0.2 x10^3/uL (0.0-0.7) Basophils # (Auto) 0.0 x10^3/uL (0.0-0.2) Sodium Level 140 mmol/L (136-145) Potassium Level 4.5 mmol/L (3.5-5.1) Chloride Level 108 mmol/L (98-107) Carbon Dioxide Level 24 mmol/L (21-32) Anion Gap 8 (6-14) Blood Urea Nitrogen 18 mg/dL (8-26) Creatinine 1.9 mg/dL (0.7-1.3) Estimated GFR (Cockcroft-Gault) 37.7 Glucose Level 111 mg/dL (70-99) Calcium Level 8.9 mg/dL (8.5-10.1) Micro Micro Microbiology 01/26/18 Blood Culture - Final, Complete NO GROWTH AFTER 5 DAYS 01/28/18 - Final, Complete 01/28/18 - Final, Complete 01/28/18 - Final, Complete 01/28/18 - Final, Complete 01/28/18 - Final, Complete 01/28/18 Gram Stain Evaluation - Final, Complete 01/28/18 Sputum Culture - Final, Complete 01/27/18 Urine Culture - Final, Complete 01/27/18 Urine Culture Result 1 ([place]) - Final, Complete Review of Systems Constitutional: yes: weakness, alert, oriented Ears/Nose/Throat: Yes: no symptom reported Eyes: Yes: no symptom reported Pulmonary: Yes no symptom reported Cardiovascular: Yes no symptom reported Gastrointestional: Yes: nausea, vomiting Genitourinary: Yes: no symptom reported Musculoskeletal: Yes: no symptom reported Skin: Yes no symptom reported Psychiatric/Neurological: Yes: no symptom reported Endocrine: Yes: no symptom reported Physical Exam General Appearance: no apparent distress Skin: warm Respiratory: bilateral CTA Heart: S1S2, no thrills Abdomen: soft, bowel sounds present Genitourinary: bladder flat Extremities: pulses present Neurology: alert, oriented, follow commands Musculoskeletal: Osteoarthritis Assessment Assessment IMP HX OF RENAL TX 2008 CKD STAGE 3 WITH CR OF ABOUT 1.5 JAMAL - IMPROVING WITH CR 4.4 TO 1.9 DEHYDRATION DUE TO N/V-RESOLVED DM II HTN HX ANEMIA PLAN CHECK IRON STORES AVOID PRBC ENC PO CONT WITH IMMUNOSUPPRESSION GOT ARACRISTINAP EARLIER THIS WK UPDATED FAMILY MOR PADILLA MD Feb 03, 2018 10:12
[2018-02-03 11:00] VITALS: BP 140/68
--- NOTE | 2018-02-03 13:05 | PDOC ---
PULMONARY PROGRESS NOTES Subjective no soa weak Vitals Vital Signs Date Time Temp Pulse Resp B/P (MAP) Pulse Ox O2 Delivery O2 Flow Rate FiO2 02/03/18 11:00 98.7 85 16 140/68 (92) 100 Nasal Cannula 2.0 98.7 ROS: No Nausea, No Chest Pain, No Abdominal Pain General: Alert, No acute distress Lungs: Clear Cardiovascular: S1, S2 Abdomen: Soft Neuro Exam: Alert Extremities: Other (bka) Skin: Warm Labs Laboratory Tests Test 02/01/18 16:52 02/01/18 20:45 02/02/18 03:24 02/02/18 04:00 Glucose (Fingerstick) 73 mg/dL (70-99) 122 mg/dL (70-99) 158 mg/dL (70-99) White Blood Count 5.3 x10^3/uL (4.0-11.0) Red Blood Count 2.24 x10^6/uL (4.30-5.70) Hemoglobin 6.8 g/dL (13.0-17.5) Hematocrit 19.7 % (39.0-53.0) Mean Corpuscular Volume 88 fL (79-100) Mean Corpuscular Hemoglobin 31 pg (25-35) Mean Corpuscular Hemoglobin Concent 35 g/dL (31-37) Red Cell Distribution Width 13.3 % (11.5-14.5) Platelet Count 286 x10^3/uL (140-400) Neutrophils (%) (Auto) 61 % (31-73) Lymphocytes (%) (Auto) 26 % (24-48) Monocytes (%) (Auto) 10 % (0-9) Eosinophils (%) (Auto) 3 % (0-3) Basophils (%) (Auto) 0 % (0-3) Neutrophils # (Auto) 3.2 x10^3uL (1.8-7.7) Lymphocytes # (Auto) 1.4 x10^3/uL (1.0-4.8) Monocytes # (Auto) 0.5 x10^3/uL (0.0-1.1) Eosinophils # (Auto) 0.2 x10^3/uL (0.0-0.7) Basophils # (Auto) 0.0 x10^3/uL (0.0-0.2) Sodium Level 140 mmol/L (136-145) Potassium Level 4.3 mmol/L (3.5-5.1) Chloride Level 108 mmol/L (98-107) Carbon Dioxide Level 23 mmol/L (21-32) Anion Gap 9 (6-14) Blood Urea Nitrogen 23 mg/dL (8-26) Creatinine 2.2 mg/dL (0.7-1.3) Estimated GFR (Cockcroft-Gault) 31.8 Glucose Level 170 mg/dL (70-99) Calcium Level 8.8 mg/dL (8.5-10.1) Test 02/02/18 07:33 02/02/18 11:56 02/02/18 12:29 02/02/18 16:45 Glucose (Fingerstick) 172 mg/dL (70-99) 68 mg/dL (70-99) 89 mg/dL (70-99) 111 mg/dL (70-99) Test 02/02/18 20:45 02/03/18 03:39 02/03/18 04:45 02/03/18 07:11 Glucose (Fingerstick) 185 mg/dL (70-99) 114 mg/dL (70-99) 137 mg/dL (70-99) White Blood Count 5.5 x10^3/uL (4.0-11.0) Red Blood Count 2.22 x10^6/uL (4.30-5.70) Hemoglobin 6.7 g/dL (13.0-17.5) Hematocrit 19.5 % (39.0-53.0) Mean Corpuscular Volume 88 fL (79-100) Mean Corpuscular Hemoglobin 30 pg (25-35) Mean Corpuscular Hemoglobin Concent 35 g/dL (31-37) Red Cell Distribution Width 13.1 % (11.5-14.5) Platelet Count 291 x10^3/uL (140-400) Neutrophils (%) (Auto) 61 % (31-73) Lymphocytes (%) (Auto) 24 % (24-48) Monocytes (%) (Auto) 11 % (0-9) Eosinophils (%) (Auto) 4 % (0-3) Basophils (%) (Auto) 1 % (0-3) Neutrophils # (Auto) 3.3 x10^3uL (1.8-7.7) Lymphocytes # (Auto) 1.3 x10^3/uL (1.0-4.8) Monocytes # (Auto) 0.6 x10^3/uL (0.0-1.1) Eosinophils # (Auto) 0.2 x10^3/uL (0.0-0.7) Basophils # (Auto) 0.0 x10^3/uL (0.0-0.2) Sodium Level 140 mmol/L (136-145) Potassium Level 4.5 mmol/L (3.5-5.1) Chloride Level 108 mmol/L (98-107) Carbon Dioxide Level 24 mmol/L (21-32) Anion Gap 8 (6-14) Blood Urea Nitrogen 18 mg/dL (8-26) Creatinine 1.9 mg/dL (0.7-1.3) Estimated GFR (Cockcroft-Gault) 37.7 Glucose Level 111 mg/dL (70-99) Calcium Level 8.9 mg/dL (8.5-10.1) Test 02/03/18 10:56 Glucose (Fingerstick) 211 mg/dL (70-99) Laboratory Tests Test 02/02/18 16:45 02/02/18 20:45 02/03/18 03:39 02/03/18 04:45 Glucose (Fingerstick) 111 mg/dL (70-99) 185 mg/dL (70-99) 114 mg/dL (70-99) White Blood Count 5.5 x10^3/uL (4.0-11.0) Red Blood Count 2.22 x10^6/uL (4.30-5.70) Hemoglobin 6.7 g/dL (13.0-17.5) Hematocrit 19.5 % (39.0-53.0) Mean Corpuscular Volume 88 fL (79-100) Mean Corpuscular Hemoglobin 30 pg (25-35) Mean Corpuscular Hemoglobin Concent 35 g/dL (31-37) Red Cell Distribution Width 13.1 % (11.5-14.5) Platelet Count 291 x10^3/uL (140-400) Neutrophils (%) (Auto) 61 % (31-73) Lymphocytes (%) (Auto) 24 % (24-48) Monocytes (%) (Auto) 11 % (0-9) Eosinophils (%) (Auto) 4 % (0-3) Basophils (%) (Auto) 1 % (0-3) Neutrophils # (Auto) 3.3 x10^3uL (1.8-7.7) Lymphocytes # (Auto) 1.3 x10^3/uL (1.0-4.8) Monocytes # (Auto) 0.6 x10^3/uL (0.0-1.1) Eosinophils # (Auto) 0.2 x10^3/uL (0.0-0.7) Basophils # (Auto) 0.0 x10^3/uL (0.0-0.2) Sodium Level 140 mmol/L (136-145) Potassium Level 4.5 mmol/L (3.5-5.1) Chloride Level 108 mmol/L (98-107) Carbon Dioxide Level 24 mmol/L (21-32) Anion Gap 8 (6-14) Blood Urea Nitrogen 18 mg/dL (8-26) Creatinine 1.9 mg/dL (0.7-1.3) Estimated GFR (Cockcroft-Gault) 37.7 Glucose Level 111 mg/dL (70-99) Calcium Level 8.9 mg/dL (8.5-10.1) Test 02/03/18 07:11 02/03/18 10:56 Glucose (Fingerstick) 137 mg/dL (70-99) 211 mg/dL (70-99) Medications Active Scripts Medications Dose Route/Sig Max Daily Dose Days Date Category Prograf (Tacrolimus) 1 Mg Capsule 3 Cap PO QHS 01/24/18 Reported Prograf (Tacrolimus) 1 Mg Capsule 4 Cap PO DAILY 01/24/18 Reported Lantus Solostar (Insulin Glargine,Hum.rec.anlog) 100 Unit/1 Ml Insuln.pen 4 Unit SQ [id number] 01/24/18 Reported Lantus Solostar (Insulin Glargine,Hum.rec.anlog) 100 Unit/1 Ml Insuln.pen 4 Unit SQ QHS 01/24/18 Reported Amlodipine Besylate 5 Mg Tablet 5 Mg PO DAILY 01/24/18 Reported Clonidine Hcl 0.2 Mg Tablet 1 Tab PO BID 01/24/18 Reported Oxycodone-Acetaminophen 5-325 (Oxycodone Hcl/Acetaminophen) 1 Each Tablet 1 Tab PO PRN Q4HRS PRN 07/15/16 Rx Clopidogrel (Clopidogrel Bisulfate) 75 Mg Tablet 1 Tab PO DAILY 07/15/16 Reported Cellcept (Mycophenolate Mofetil) 250 Mg Capsule 1 Cap PO BID 07/15/16 Reported Pantoprazole Sodium 20 Mg Tablet.dr 20 Mg PO DAILY 07/15/16 Reported Hydrochlorothiazide Capsule (Hydrochlorothiazide) 12.5 Mg Capsule 10 Mg PO BID 07/15/16 Reported Carvedilol 25 Mg Tablet 2 Tab PO [id number] 07/15/16 Reported Comments CXR 02/02 IMPRESSION: 1. Bibasilar lung airspace opacities or infiltrates slightly improved compared to prior exam. 2. Mildly improved congestive changes. Electronically signed by: Jerry Mascorro MD (02/02/2018 9:55 AM) [facility] ct chest 1. Consolidating infiltrates in both lungs, greatest in the left lower lobe, likely due to pneumonia or other inflammatory process. 2. There are several small groundglass nodules in the right lower lobe, may be related to the above process, could also be monitored with short-term follow-up CT. 3. Pleural effusions, left greater than right. 4. Distention of the upper abdominal bowel loops, correlate for symptoms of ileus or obstruction. 5. Partially visualized kidneys are very small and atrophic. Electronically signed by: Fahad Portillo MD (01/30/2018 1:43 PM) [facility] Impression . 1. Acute respiratory failure. 2. Abnormal cxr / ct chest c/w pneumonia. Nodules likely inflammatory. CXR improving 3. suspect Acute on chronic heart failure. 4. End-stage renal disease, status post renal transplant. 5. Immunocompromised. 6. Accelerated hypertension. 7. Type 2 diabetes. 8. Anemia, acute on chronic Plan . SOA RELATED TO ANEMIA/. REPEAT CXR 02/02 IMPROVING INFILTRATES PRN BIPAP CT CHEST C/W PNEUMONIA ABX MONITOR H/H AMBULATE WITH PROSTHESIS D/W KEENAN HOWE MD Feb 03, 2018 13:05
[2018-02-03 15:18] VITALS: BP 141/64
[2018-02-03 19:00] VITALS: BP 166/59
[2018-02-03] MEDS: INSULIN GLARGINE 300 UNITS/3 ML INSULN.PEN. SQ SCH (21:24)
[2018-02-03 22:57] VITALS: BP 142/68
[2018-02-04] MEDS: diphenhydrAMINE 50 MG/ML VIAL IVP PRN (01:22)
[2018-02-04 03:00] VITALS: BP 167/88
[2018-02-04 05:15] LABS: BASO % 1 % (0-3); EOS # 0.2 x10^3/uL (0.0-0.7); EOS % 3 % (0-3); HEMOGLOBIN 7.1 g/dL (13.0-17.5); LYMPH # 1.4 x10^3/uL (1.0-4.8); LYMPH % 26 % (24-48); MEAN CORPUSCULAR HEMOGLOBIN 31 pg (25-35); MEAN CORPUSCULAR HGB CONC 36 g/dL (31-37); MEAN CORPUSCULAR VOLUME 87 fL (79-100); MONO # 0.6 x10^3/uL (0.0-1.1); MONO % 10 % (0-9); NEUT # 3.3 x10^3uL (1.8-7.7); NEUT % 60 % (31-73); PLATELET COUNT 300 x10^3/uL (140-400); RED BLOOD COUNT 2.27 x10^6/uL (4.30-5.70); RED CELL DISTRIBUTION WIDTH 13.1 % (11.5-14.5); WHITE BLOOD COUNT 5.5 x10^3/uL (4.0-11.0)
[2018-02-04 05:18] LABS: HEMATOCRIT 19.8 % (39.0-53.0)
[2018-02-04 05:22] LABS: CREATININE 1.7 mg/dL (0.7-1.3); GFR 42.9; POTASSIUM 4.8 mmol/L (3.5-5.1)
[2018-02-04 07:40] VITALS: BP 177/73
[2018-02-04] MEDS: INSULIN LISPRO 300 UNITS/3 ML INSULN.PEN. SQ SCH ×6 (08:00→16:58)
[2018-02-04] MEDS: MYCOPHENOLATE MOFETIL 250 MG CAPSULE. PO SCH (08:20)
[2018-02-04] MEDS: CARVEDILOL 12.5 MG TABLET. PO SCH ×2 (08:20→16:53)
[2018-02-04] MEDS: METOCLOPRAMIDE ORAL SOLN 10 MG/10 ML SOLUTION. PO SCH ×3 (08:21→16:53)
[2018-02-04] MEDS: cloNIDine HCL 0.2 MG TABLET PO SCH (08:21)
[2018-02-04] MEDS: amLODIPine BESYLATE 5 MG TABLET PO SCH (08:21)
[2018-02-04] MEDS: GABAPENTIN 100 MG CAPSULE. PO SCH ×2 (08:22→14:24)
[2018-02-04] MEDS: CLOPIDOGREL BISULFATE 75 MG TABLET PO SCH (08:22)
[2018-02-04] MEDS: PANTOPRAZOLE 40 MG TABLET.DR. PO SCH (08:22)
[2018-02-04] MEDS: TACROLIMUS 0.5 MG CAPSULE PO SCH (08:22)
[2018-02-04] MEDS: CEFEPIME HCL IV Push 1 GM VIAL. IVP SCH (08:24)
[2018-02-04] MEDS: oxyCODONE/APAP 5/325 1 TAB TABLET PO PRN (08:24)
--- NOTE | 2018-02-04 09:05 | PDOC ---
PROGRESS NOTES Subjective Subjective HPI -f/u of Anemia, ROS - no CP, no dyspnea Objective Objective Vital Signs Date Time Temp Pulse Resp B/P (MAP) Pulse Ox O2 Delivery O2 Flow Rate FiO2 02/04/18 08:24 18 Room Air 02/04/18 08:21 89 177/73 02/04/18 08:00 2.0 02/04/18 07:40 98.7 96 98.7 Intake and Output 02/04/18 07:00 Intake Total 1160 ml Output Total 2700 ml Balance -1540 ml Intake Oral 1160 ml Output Urine Total 2700 ml Physical Exam Heart: Normal S1, Normal S2 General: Alert, Oriented X3, No acute distress Lungs: Clear to auscultation Neuro: Normal speech Psych/Mental Status: Mental status NL Assessment Assessment Problems Medical Problems: (1) Hypertensive urgency Status: Acute (2) Intractable nausea and vomiting Status: Acute (3) Migraine headache Status: Acute IMPRESSION AND PLAN: 1. Anemia, progressively worse. This is multifactorial including underlying chronic kidney disease, worsening renal failure, pneumonia, congestive heart failure, antibiotics. His reticulocyte count is normal at 1.7 and hence I do not suspect hemolysis. There is no evidence of bleeding. I would continue to monitor hemoglobin and avoid transfusion per nephrology. Hb worse at 7.0 on 01/31/18, s/p aranesp 100 mcg 01/31/18. Hb better at 7.5 on 02/01/18 Hb 7.1 on 02/04/18 Monitor cbc 2. Chronic kidney disease with worsening renal failure. Appreciate Nephrology consultation. The patient has a renal transplant in 2007 and he is on CellCept and Prograf. 3. Pneumonia. Appreciate ID and Pulmonary consultation. Comment Review of Relevant I have reviewed the following items nadiya (where applicable) has been applied. Labs Laboratory Tests Test 02/02/18 11:56 02/02/18 12:29 02/02/18 16:45 02/02/18 20:45 Glucose (Fingerstick) 68 mg/dL (70-99) 89 mg/dL (70-99) 111 mg/dL (70-99) 185 mg/dL (70-99) Test 02/03/18 03:39 02/03/18 04:45 02/03/18 07:11 02/03/18 10:56 Glucose (Fingerstick) 114 mg/dL (70-99) 137 mg/dL (70-99) 211 mg/dL (70-99) White Blood Count 5.5 x10^3/uL (4.0-11.0) Red Blood Count 2.22 x10^6/uL (4.30-5.70) Hemoglobin 6.7 g/dL (13.0-17.5) Hematocrit 19.5 % (39.0-53.0) Mean Corpuscular Volume 88 fL (79-100) Mean Corpuscular Hemoglobin 30 pg (25-35) Mean Corpuscular Hemoglobin Concent 35 g/dL (31-37) Red Cell Distribution Width 13.1 % (11.5-14.5) Platelet Count 291 x10^3/uL (140-400) Neutrophils (%) (Auto) 61 % (31-73) Lymphocytes (%) (Auto) 24 % (24-48) Monocytes (%) (Auto) 11 % (0-9) Eosinophils (%) (Auto) 4 % (0-3) Basophils (%) (Auto) 1 % (0-3) Neutrophils # (Auto) 3.3 x10^3uL (1.8-7.7) Lymphocytes # (Auto) 1.3 x10^3/uL (1.0-4.8) Monocytes # (Auto) 0.6 x10^3/uL (0.0-1.1) Eosinophils # (Auto) 0.2 x10^3/uL (0.0-0.7) Basophils # (Auto) 0.0 x10^3/uL (0.0-0.2) Sodium Level 140 mmol/L (136-145) Potassium Level 4.5 mmol/L (3.5-5.1) Chloride Level 108 mmol/L (98-107) Carbon Dioxide Level 24 mmol/L (21-32) Anion Gap 8 (6-14) Blood Urea Nitrogen 18 mg/dL (8-26) Creatinine 1.9 mg/dL (0.7-1.3) Estimated GFR (Cockcroft-Gault) 37.7 Glucose Level 111 mg/dL (70-99) Calcium Level 8.9 mg/dL (8.5-10.1) Test 02/03/18 16:34 11/4/18 16:54 02/03/18 20:31 02/04/18 01:03 Glucose (Fingerstick) 58 mg/dL (70-99) 77 mg/dL (70-99) 231 mg/dL (70-99) 305 mg/dL (70-99) Test 02/04/18 03:40 02/04/18 06:49 White Blood Count 5.5 x10^3/uL (4.0-11.0) Red Blood Count 2.27 x10^6/uL (4.30-5.70) Hemoglobin 7.1 g/dL (13.0-17.5) Hematocrit 19.8 % (39.0-53.0) Mean Corpuscular Volume 87 fL (79-100) Mean Corpuscular Hemoglobin 31 pg (25-35) Mean Corpuscular Hemoglobin Concent 36 g/dL (31-37) Red Cell Distribution Width 13.1 % (11.5-14.5) Platelet Count 300 x10^3/uL (140-400) Neutrophils (%) (Auto) 60 % (31-73) Lymphocytes (%) (Auto) 26 % (24-48) Monocytes (%) (Auto) 10 % (0-9) Eosinophils (%) (Auto) 3 % (0-3) Basophils (%) (Auto) 1 % (0-3) Neutrophils # (Auto) 3.3 x10^3uL (1.8-7.7) Lymphocytes # (Auto) 1.4 x10^3/uL (1.0-4.8) Monocytes # (Auto) 0.6 x10^3/uL (0.0-1.1) Eosinophils # (Auto) 0.2 x10^3/uL (0.0-0.7) Basophils # (Auto) 0.0 x10^3/uL (0.0-0.2) Sodium Level 135 mmol/L (136-145) Potassium Level 4.8 mmol/L (3.5-5.1) Chloride Level 102 mmol/L (98-107) Carbon Dioxide Level 25 mmol/L (21-32) Anion Gap 8 (6-14) Blood Urea Nitrogen 17 mg/dL (8-26) Creatinine 1.7 mg/dL (0.7-1.3) Estimated GFR (Cockcroft-Gault) 42.9 Glucose Level 309 mg/dL (70-99) Calcium Level 9.0 mg/dL (8.5-10.1) Iron Level 26 ug/dL (65-175) Total Iron Binding Capacity 175 ug/dL (250-450) Iron Saturation 15 % (15-34) Glucose (Fingerstick) 222 mg/dL (70-99) Laboratory Tests Test 02/03/18 10:56 02/03/18 16:34 02/03/18 16:54 02/03/18 20:31 Glucose (Fingerstick) 211 mg/dL (70-99) 58 mg/dL (70-99) 77 mg/dL (70-99) 231 mg/dL (70-99) Test 02/04/18 01:03 02/04/18 03:40 02/04/18 06:49 Glucose (Fingerstick) 305 mg/dL (70-99) 222 mg/dL (70-99) White Blood Count 5.5 x10^3/uL (4.0-11.0) Red Blood Count 2.27 x10^6/uL (4.30-5.70) Hemoglobin 7.1 g/dL (13.0-17.5) Hematocrit 19.8 % (39.0-53.0) Mean Corpuscular Volume 87 fL (79-100) Mean Corpuscular Hemoglobin 31 pg (25-35) Mean Corpuscular Hemoglobin Concent 36 g/dL (31-37) Red Cell Distribution Width 13.1 % (11.5-14.5) Platelet Count 300 x10^3/uL (140-400) Neutrophils (%) (Auto) 60 % (31-73) Lymphocytes (%) (Auto) 26 % (24-48) Monocytes (%) (Auto) 10 % (0-9) Eosinophils (%) (Auto) 3 % (0-3) Basophils (%) (Auto) 1 % (0-3) Neutrophils # (Auto) 3.3 x10^3uL (1.8-7.7) Lymphocytes # (Auto) 1.4 x10^3/uL (1.0-4.8) Monocytes # (Auto) 0.6 x10^3/uL (0.0-1.1) Eosinophils # (Auto) 0.2 x10^3/uL (0.0-0.7) Basophils # (Auto) 0.0 x10^3/uL (0.0-0.2) Sodium Level 135 mmol/L (136-145) Potassium Level 4.8 mmol/L (3.5-5.1) Chloride Level 102 mmol/L (98-107) Carbon Dioxide Level 25 mmol/L (21-32) Anion Gap 8 (6-14) Blood Urea Nitrogen 17 mg/dL (8-26) Creatinine 1.7 mg/dL (0.7-1.3) Estimated GFR (Cockcroft-Gault) 42.9 Glucose Level 309 mg/dL (70-99) Calcium Level 9.0 mg/dL (8.5-10.1) Iron Level 26 ug/dL (65-175) Total Iron Binding Capacity 175 ug/dL (250-450) Iron Saturation 15 % (15-34) Microbiology 01/26/18 Blood Culture - Final, Complete NO GROWTH AFTER 5 DAYS 02/01/18 Stool Culture - Final, Resulted 02/01/18 Stool Culture Result 1 ([place]) - Final, Resulted 02/01/18 Campylobacter Antigen Assay - Preliminary, Resulted 02/01/18 Campylobactor Result 1 - Preliminary, Resulted 02/01/18 Shiga Toxin Test - Final, Resulted 01/28/18 - Final, Complete 01/28/18 - Final, Complete 01/28/18 - Final, Complete 01/28/18 - Final, Complete 01/28/18 - Final, Complete 01/28/18 Gram Stain Evaluation - Final, Complete 01/28/18 Sputum Culture - Final, Complete 01/27/18 Urine Culture - Final, Complete 01/27/18 Urine Culture Result 1 ([place]) - Final, Complete Medications Current Medications Sodium Chloride 1,000 ml @ 1,000 mls/hr Q1H IV Last administered on at 17:54; Start 01/23/18 at 17:21; Stop 01/23/18 at 18:20; Status DC Prochlorperazine Edisylate (Compazine) 10 mg 1X ONCE IV Last administered on 01/23/18at 17:55; Start 01/23/18 at 17:30; Stop 01/23/18 at 17:31; Status DC Diphenhydramine HCl (Benadryl) 25 mg 1X ONCE IVP Last administered on at 17:57; Start 01/23/18 at 17:30; Stop 01/23/18 at 17:31; Status DC Metoclopramide HCl (Reglan Vial) 10 mg 1X ONCE IV Last administered on at 19:24; Start 01/23/18 at 19:15; Stop 01/23/18 at 19:17; Status DC Diphenhydramine HCl (Benadryl) 25 mg 1X ONCE IVP Last administered on at 19:25; Start 01/23/18 at 19:15; Stop 01/23/18 at 19:17; Status DC Metoprolol Tartrate (Lopressor Vial) 5 mg 1X ONCE IVP Last administered on at 19:55; Start 01/23/18 at 19:45; Stop 01/23/18 at 19:46; Status DC Insulin Human Regular (HumuLIN R VIAL) 5 unit 1X ONCE IV Last administered on 01/23/18at 19:55; Start 01/23/18 at 19:45; Stop 01/23/18 at 19:46; Status DC Labetalol HCl (Normodyne Iv Push) 10 mg 1X ONCE IVP ; Start 01/23/18 at 20:30 ; Stop 01/23/18 at 20:31; Status DC Labetalol HCl (Normodyne Iv Push) 10 mg 1X ONCE IVP Last administered on 01/23at 22:29; Start 01/23/18 at 22:00; Stop 01/23/18 at 22:04; Status DC Ondansetron HCl (Zofran) 4 mg PRN Q8HRS PRN IV NAUSEA/VOMITING Last administered on 01/24/18at 00:16; Start 01/23/18 at 22:45; Stop 01/24/18 at 03 :05; Status DC Fentanyl Citrate (Fentanyl 2ml Vial) 50 mcg PRN Q2HR PRN IV PAIN Last administered on 01/24/18at 19:48; Start 01/23/18 at 22:45; Stop 01/24/18 at 22 :44; Status DC Sodium Chloride 1,000 ml @ 100 mls/hr Q10H IV Last administered on 01/24/18at 19:56; Start 01/23/18 at 22:37; Stop 01/24/18 at 22:36; Status DC Labetalol HCl (Normodyne Iv Push) 10 mg PRN Q30MIN PRN IVP SBP>180 Last administered on 01/24/18at 00:07; Start 01/23/18 at 22:45; Stop 01/24/18 at 00 :49; Status DC Insulin Human Lispro (HumaLOG) 0-5 UNITS TIDWMEALS SQ Last administered on 02/03at 11:50; Start 01/24/18 at 08:00 Dextrose (Dextrose 50%-Water Syringe) 12.5 gm PRN Q15MIN PRN IV SEE COMMENTS Last administered on 02/01/18at 03:26; Start 01/23/18 at 23:00 Labetalol HCl (Normodyne Iv Push) 20 mg PRN Q2HR PRN IVP HYPERTENSION, SEE COMMENTS Last administered on 01/24/18at 02:12; Start 01/24/18 at 00:45; Stop 01/25/18 at 14:21; Status DC Carvedilol (Coreg) 6.25 mg 1X ONCE PO ; Start 01/24/18 at 00:45; Stop at 00:49; Status DC Amlodipine Besylate (Norvasc) 5 mg 1X ONCE PO Last administered on 01/24/18at 01:00; Start 01/24/18 at 00:45; Stop 01/24/18 at 00:49; Status DC Oxycodone/ Acetaminophen (Percocet 5/325) 1 tab PRN Q4HRS PRN PO PAIN Last administered on 02/04/18at 08:24; Start 01/24/18 at 01:00 Carvedilol (Coreg) 12.5 mg 1X ONCE PO Last administered on 01/24/18at 01:05; Start 01/24/18 at 01:00; Stop 01/24/18 at 01:04; Status DC Nicardipine HCl 50 mg/Sodium Chloride 270 ml @ 32.4 mls/hr CONT PRN IV SEE I/ O RECORD Last administered on 01/27/18at 05:03; Start 01/24/18 at 03:00 Acetaminophen (Tylenol) 650 mg PRN Q6HRS PRN PEG MILD PAIN / TEMP; Start 01/24 at 03:15; Status Cancel Ondansetron HCl (Zofran) 4 mg PRN Q6HRS PRN IV NAUSEA/VOMITING, 1ST CHOICE Last administered on 01/26/18at 22:04; Start 01/24/18 at 03:15 Metoclopramide HCl (Reglan Vial) 5 mg PRN Q6HRS PRN IV NAUSEA/VOMITING, 3RD CHOICE Last administered on 01/25/18at 11:53; Start 01/24/18 at 03:15; Stop at 15:35; Status DC Prochlorperazine Edisylate (Compazine) 10 mg PRN Q6HRS PRN IV NAUSEA/VOMITING, 2ND CHOICE Last administered on 01/27/18at 06:31; Start 01/24/18 at 03:15 Pantoprazole Sodium (Protonix) 40 mg 1X ONCE PO Last administered on at 03:13; Start 01/24/18 at 03:30; Stop 01/24/18 at 03:31; Status DC Acetaminophen (Tylenol) 650 mg PRN Q6HRS PRN PO MIGRAINE HEADACHE Last administered on 02/02/18at 08:10; Start 01/24/18 at 03:15 Insulin Human Lispro (HumaLOG) 10 units 1X ONCE SQ Last administered on at 05:09; Start 01/24/18 at 05:00; Stop 01/24/18 at 05:02; Status DC Magnesium Sulfate/ Dextrose 100 ml @ 100 mls/hr 1X ONCE IV Last administered on 01/24/18at 12:01; Start 01/24/18 at 09:15; Stop 01/24/18 at 10:14; Status DC Metoprolol Tartrate (Lopressor Vial) 5 mg Q6HRS IVP Last administered on at 11:08; Start 01/24/18 at 11:00; Stop 01/25/18 at 11:41; Status DC Trimethobenzamide HCl (Tigan Im) 200 mg PRN Q6HRS PRN IM NAUSEA/VOMITING; Start 01/24/18 at 11:00 Morphine Sulfate (Morphine Sulfate) 2 mg PRN Q2HR PRN IV MODERATE PAIN Last administered on 02/02/18at 13:38; Start 01/24/18 at 11:00 Amlodipine Besylate (Norvasc) 5 mg DAILY PO Last administered on 02/04/18at 08: 21; Start 01/24/18 at 11:30 Clonidine HCl (Catapres) 0.2 mg BID PO Last administered on 02/04/18at 08:21; Start 01/24/18 at 11:30 Clopidogrel Bisulfate (Plavix) 75 mg DAILY PO Last administered on 02/04/18at 08 :22; Start 01/24/18 at 11:30 Insulin Glargine (Lantus) 4 units DAILYWBKFT SQ ; Start 01/24/18 at 11:30; Stop 01/24/18 at 11:30; Status DC Insulin Glargine (Lantus) 4 units QHS SQ ; Start 01/24/18 at 21:00; Status UNV Carvedilol (Coreg) 25 mg BIDWMEALS PO Last administered on 02/04/18at 08:20; Start 01/24/18 at 17:00 Non-Formulary Medication (Hydrochlorothiazide (Hydrochlorothiazide Capsule ) ) 10 mg BID PO ; Start 01/24/18 at 21:00; Stop 01/24/18 at 21:00; Status DC Mycophenolate Mofetil (Cellcept) 250 mg BID PO Last administered on 01/24/18at 12:01; Start 01/24/18 at 12:00; Stop 01/24/18 at 15:58; Status DC Pantoprazole Sodium (Protonix) 40 mg DAILYAC PO ; Start 01/24/18 at 11:30; Stop 01/24/18 at 12:01; Status DC Tacrolimus (Prograf) 2 mg BID PO Last administered on 01/24/18at 12:02; Start 01/24/18 at 12:00; Stop 01/24/18 at 13:07; Status DC Insulin Glargine (Lantus) 4 units BID SQ Last administered on 01/29/18at 09:27 ; Start 01/24/18 at 11:30; Stop 01/29/18 at 11:29; Status DC Pantoprazole Sodium (PROTONIX VIAL for IV PUSH) 40 mg DAILYAC IVP Last administered on 01/25/18at 09:34; Start 01/24/18 at 13:00; Stop 01/25/18 at 15 :35; Status DC Tacrolimus (Prograf) 4 mg DAILY PO ; Start 01/25/18 at 09:00; Stop 01/25/18 at 09:00; Status DC Tacrolimus (Prograf) 3 mg QHS PO ; Start 01/24/18 at 21:00; Stop 01/24/18 at 21:00; Status DC Tacrolimus (Prograf) 2 mg DAILY SL Last administered on 01/27/18at 07:59; Start 01/25/18 at 09:00; Stop 01/27/18 at 17:15; Status DC Tacrolimus (Prograf) 1 mg QHS SL Last administered on 01/26/18at 21:33; Start 01/24/18 at 21:00; Stop 01/27/18 at 17:13; Status DC Sodium Chloride (Saline Mist Nasal) 1 bryan PRN Q1HR PRN NS NASAL CONGESTION; Start 01/24/18 at 15:00; Stop 01/24/18 at 17:28; Status DC Gabapentin (Neurontin) 100 mg TID PO Last administered on 02/04/18at 08:22; Start 01/24/18 at 16:00 Mycophenolate Mofetil 250 mg/ Dextrose 42 ml @ 21 mls/hr Q12H IV Last administered on 01/27/18at 09:33; Start 01/24/18 at 21:00; Stop 01/27/18 at 14 :11; Status DC Tacrolimus (Prograf) 0.5 mg QHS SL Last administered on 01/26/18at 21:33; Start 01/24/18 at 21:00; Stop 01/27/18 at 17:13; Status DC Sodium Chloride (Saline Mist Nasal) 1 bryan PRN Q1HR PRN NS NASAL CONGESTION; Start 01/24/18 at 17:30 Sodium Chloride 1,000 ml @ 75 mls/hr [id number] IV ; Start 01/25/18 at 07:30; Stop 01/27/18 at 15:58; Status DC Fentanyl Citrate (Fentanyl 2ml Vial) 50 mcg PRN Q3HRS PRN IV SEVERE PAIN Last administered on 02/03/18at 21:22; Start 01/25/18 at 09:15 Sodium Chloride 1,000 ml @ 75 mls/hr [id number] IV Last administered on at 09:35; Start 01/25/18 at 09:15; Stop 01/27/18 at 15:58; Status DC Metoprolol Tartrate (Lopressor Vial) 7.5 mg Q6HRS IVP ; Start 01/25/18 at 18:00 ; Stop 01/25/18 at 18:00; Status DC Clonidine HCl (Catapres Tts-3) 1 patch WEEKLY TD Last administered on at 09:45; Start 01/25/18 at 13:00 Labetalol HCl (Normodyne Iv Push) 20 mg PRN Q4HRS PRN IVP HYPERTENSION, SEE COMMENTS Last administered on 02/02/18at 08:06; Start 01/25/18 at 13:00 Ringer's Solution 1,000 ml @ 30 mls/hr Q24H IV ; Start 01/25/18 at 15:15; Status Cancel Propofol 20 ml @ As Directed STK-MED ONCE IV ; Start 01/25/18 at 15:07; Stop 01/25/18 at 15:08; Status DC Lidocaine HCl (Xylocaine-Mpf 1% 2ml Vial) 2 ml STK-MED ONCE .ROUTE ; Start at 15:07; Stop 01/25/18 at 15:08; Status DC Sodium Chloride 1,000 ml @ 0 mls/hr Q0M IV Last administered on 01/25/18at 15: 13; Start 01/25/18 at 15:15; Stop 01/25/18 at 15:43; Status DC Metoclopramide HCl (Reglan Vial) 5 mg Q6HRS IV Last administered on 01/28/18at 06:02; Start 01/25/18 at 18:00; Stop 01/28/18 at 09:59; Status DC Pantoprazole Sodium (PROTONIX VIAL for IV PUSH) 40 mg BIDAC IVP Last administered on 01/28/18at 08:59; Start 01/25/18 at 16:30; Stop 01/28/18 at 09 :59; Status DC Levofloxacin/ Dextrose 100 ml @ 100 mls/hr Q24H IV ; Start 01/26/18 at 08:30; Stop 01/26/18 at 09:32; Status DC Levalbuterol HCl (Xopenex) 1.25 mg PRN Q6HRS PRN NEB SHORTNESS OF BREATH Last administered on 01/27/18at 12:19; Start 01/26/18 at 08:45 Piperacillin Sod/ Tazobactam Sod (Zosyn Per Pharmacy) 1 each PRN DAILY PRN MC SEE COMMENTS; Start 01/26/18 at 10:00; Stop 01/28/18 at 10:56; Status DC Furosemide (Lasix) 40 mg DAILY IVP Last administered on 01/28/18at 08:59; Start 01/26/18 at 10:30; Stop 01/31/18 at 15:53; Status DC Piperacillin Sod/ Tazobactam Sod 3.375 gm/Sodium Chloride 50 ml @ 100 mls/hr Q6HRS IV Last administered on 01/28/18at 06:03; Start 01/26/18 at 11:00; Stop 01/28/18 at 10:46; Status DC Linezolid/Dextrose 300 ml @ 300 mls/hr Q12HR IV Last administered on at 20:11; Start 01/27/18 at 10:00; Stop 01/30/18 at 08:30; Status DC Mycophenolate Mofetil (Cellcept) 250 mg BID PO Last administered on 02/04/18at 08:20; Start 01/27/18 at 21:00 Tacrolimus (Prograf) 3 mg QHS PO Last administered on 01/29/18at 20:10; Start 01/27/18 at 21:00; Stop 01/30/18 at 05:04; Status DC Tacrolimus (Prograf) 4 mg DAILY PO Last administered on 01/30/18at 08:18; Start 01/28/18 at 09:00; Stop 01/30/18 at 12:00; Status DC Doxycycline Hyclate (Vibra-Tab) 100 mg BID PO Last administered on 01/28/18at 09:06; Start 01/28/18 at 09:00; Stop 01/28/18 at 10:52; Status DC Metoclopramide HCl (Reglan Vial) 5 mg QIDACHS IV ; Start 01/28/18 at 11:30; Stop 01/28/18 at 11:30; Status DC Pantoprazole Sodium (Protonix) 40 mg BIDAC PO Last administered on 02/04/18at 08 :22; Start 01/28/18 at 10:30 Metoclopramide HCl (Reglan Oral Solution) 5 mg QIDACHS PO Last administered on 02/04/18at 08:21; Start 01/28/18 at 11:30 Cefepime HCl 1 gm/ Dextrose 50 ml @ 100 mls/hr DAILY IV ; Start 01/29/18 at 09 :00; Status UNV Cefepime HCl (Maxipime) 1 gm DAILY IVP Last administered on 02/04/18at 08:24; Start 01/28/18 at 12:00 Insulin Human Lispro (HumaLOG) 20 units 1X ONCE SQ Last administered on at 04:39; Start 01/29/18 at 05:00; Stop 01/29/18 at 05:01; Status DC Insulin Glargine (Lantus) 20 units TID SQ ; Start 01/29/18 at 14:00; Stop at 14:00; Status DC Insulin Human Lispro (HumaLOG) 10 units TIDAC SQ Last administered on at 12:24; Start 01/29/18 at 11:30; Stop 01/29/18 at 17:48; Status DC Insulin Glargine (Lantus) 20 units QHS SQ Last administered on 01/30/18at 21:00 ; Start 01/29/18 at 21:00; Stop 01/31/18 at 20:57; Status DC Docusate Sodium (Colace) 100 mg PRN DAILY PRN PO HARD STOOLS Last administered on 01/30/18at 08:16; Start 01/29/18 at 11:45 Polyethylene Glycol (miraLAX PACKET) 17 gm PRN DAILY PRN PO CONSTIPATION Last administered on 01/30/18at 08:20; Start 01/29/18 at 11:45 Insulin Human Lispro (HumaLOG) 6 units TIDAC SQ Last administered on 02/04/18at 08:40; Start 01/30/18 at 07:30 Tacrolimus (Prograf) 3 mg QHS PO Last administered on 02/03/18at 20:08; Start 01/30/18 at 21:00 Tacrolimus (Prograf) 4 mg DAILY PO Last administered on 02/04/18at 08:22; Start 01/31/18 at 09:00 Potassium Chloride (Klor-Con) 40 meq 1X ONCE PO Last administered on at 13:56; Start 01/30/18 at 13:30; Stop 01/30/18 at 13:31; Status DC Magnesium Citrate (Citroma) 296 ml PRN 1X PRN PO CONSTIPATION; Start 01/30/18 at 13:15 Bisacodyl (Dulcolax Supp) 10 mg PRN DAILY PRN NE CONSTIPATION; Start 01/30/18 at 13:15 Darbepoetin Jd (Aranesp) 100 mcg 1X ONCE SQ Last administered on 01/31/18at 10:46; Start 01/31/18 at 09:00; Stop 01/31/18 at 09:01; Status DC Diphenhydramine HCl (Benadryl) 12.5 mg QHS PRN IVP ITCHING Last administered on 02/04/18at 01:22; Start 01/31/18 at 19:15 Insulin Glargine (Lantus) 10 units QHS SQ Last administered on 02/03/18at 21:24 ; Start 01/31/18 at 21:00 Potassium Chloride (Klor-Con) 40 meq 1X ONCE PO Last administered on at 12:30; Start 02/01/18 at 11:30; Stop 02/01/18 at 11:31; Status DC Lactobacillus Rhamnosus (Culturelle) 1 cap BID PO ; Start 02/02/18 at 11:00; Status Cancel Active Scripts Active Oxycodone-Acetaminophen 5-325 (Oxycodone Hcl/Acetaminophen) 1 Each Tablet 1 Tab PO PRN Q4HRS PRN Reported Prograf (Tacrolimus) 1 Mg Capsule 3 Cap PO QHS Prograf (Tacrolimus) 1 Mg Capsule 4 Cap PO DAILY Lantus Solostar (Insulin Glargine,Hum.rec.anlog) 100 Unit/1 Ml Insuln.pen 4 Unit SQ [id number] Lantus Solostar (Insulin Glargine,Hum.rec.anlog) 100 Unit/1 Ml Insuln.pen 4 Unit SQ QHS Amlodipine Besylate 5 Mg Tablet 5 Mg PO DAILY Clonidine Hcl 0.2 Mg Tablet 1 Tab PO BID Clopidogrel (Clopidogrel Bisulfate) 75 Mg Tablet 1 Tab PO DAILY Cellcept (Mycophenolate Mofetil) 250 Mg Capsule 1 Cap PO BID Pantoprazole Sodium 20 Mg Tablet.dr Lindquist Mg PO DAILY Hydrochlorothiazide Capsule (Hydrochlorothiazide) 12.5 Mg Capsule 10 Mg PO BID Carvedilol 25 Mg Tablet 2 Tab PO DAILYBFRSUP Vitals/I & O Vital Sign - Last 24 Hours 02/03/18 02/03/18 02/03/18 02/03/18 11:00 15:13 15:18 15:46 Temp 98.7 98.7 98.7 98.7 Pulse 85 89 Resp 18 B/P (MAP) 140/68 (92) 141/64 (89) Pulse Ox 100 100 100 100 O2 Delivery Nasal Cannula Nasal Cannula Nasal Cannula Nasal Cannula O2 Flow Rate 2.0 2.0 2.0 2.0 02/03/18 02/03/18 02/03/18 02/03/18 16:50 19:00 20:05 20:09 Temp 99.0 99.0 Pulse 89 90 90 Resp 18 B/P (MAP) 141/64 166/59 (94) 166/59 Pulse Ox 99 O2 Delivery Nasal Cannula Nasal Cannula O2 Flow Rate 2.0 2.0 02/03/18 02/03/18 02/04/18 02/04/18 21:22 22:57 03:00 07:40 Temp 98.6 98.8 98.7 98.6 98.8 98.7 Pulse 87 89 Resp 18 B/P (MAP) 142/68 (92) 167/88 (114) 177/73 (107) Pulse Ox 100 97 96 O2 Delivery Nasal Cannula Nasal Cannula Nasal Cannula Nasal Cannula O2 Flow Rate 2.0 2.0 2.0 02/04/18 02/04/18 02/04/18 02/04/18 08:00 08:20 08:21 08:21 Pulse 89 89 89 B/P (MAP) 177/73 177/73 177/73 O2 Delivery Nasal Cannula O2 Flow Rate 2.0 02/04/18 08:24 Resp 18 O2 Delivery Room Air Intake and Output 02/03/18 02/03/18 02/04/18 15:00 23:00 07:00 Intake Total 1160 ml Output Total 1100 ml 1600 ml Balance 60 ml -1600 ml LUDIN GARCIA MD Feb 04, 2018 09:05
--- NOTE | 2018-02-04 09:53 | PDOC ---
PULMONARY PROGRESS NOTES Subjective no soa weak Vitals Vital Signs Date Time Temp Pulse Resp B/P (MAP) Pulse Ox O2 Delivery O2 Flow Rate FiO2 02/04/18 08:24 18 Room Air 02/04/18 08:21 89 177/73 02/04/18 08:00 2.0 02/04/18 07:40 98.7 96 98.7 ROS: No Nausea, No Chest Pain, No Abdominal Pain General: Alert, No acute distress Lungs: Clear Cardiovascular: S1, S2 Abdomen: Soft Neuro Exam: Alert Extremities: Other (bka) Skin: Warm Labs Laboratory Tests Test 02/02/18 11:56 02/02/18 12:29 02/02/18 16:45 02/02/18 20:45 Glucose (Fingerstick) 68 mg/dL (70-99) 89 mg/dL (70-99) 111 mg/dL (70-99) 185 mg/dL (70-99) Test 02/03/18 03:39 02/03/18 04:45 02/03/18 07:11 02/03/18 10:56 Glucose (Fingerstick) 114 mg/dL (70-99) 137 mg/dL (70-99) 211 mg/dL (70-99) White Blood Count 5.5 x10^3/uL (4.0-11.0) Red Blood Count 2.22 x10^6/uL (4.30-5.70) Hemoglobin 6.7 g/dL (13.0-17.5) Hematocrit 19.5 % (39.0-53.0) Mean Corpuscular Volume 88 fL (79-100) Mean Corpuscular Hemoglobin 30 pg (25-35) Mean Corpuscular Hemoglobin Concent 35 g/dL (31-37) Red Cell Distribution Width 13.1 % (11.5-14.5) Platelet Count 291 x10^3/uL (140-400) Neutrophils (%) (Auto) 61 % (31-73) Lymphocytes (%) (Auto) 24 % (24-48) Monocytes (%) (Auto) 11 % (0-9) Eosinophils (%) (Auto) 4 % (0-3) Basophils (%) (Auto) 1 % (0-3) Neutrophils # (Auto) 3.3 x10^3uL (1.8-7.7) Lymphocytes # (Auto) 1.3 x10^3/uL (1.0-4.8) Monocytes # (Auto) 0.6 x10^3/uL (0.0-1.1) Eosinophils # (Auto) 0.2 x10^3/uL (0.0-0.7) Basophils # (Auto) 0.0 x10^3/uL (0.0-0.2) Sodium Level 140 mmol/L (136-145) Potassium Level 4.5 mmol/L (3.5-5.1) Chloride Level 108 mmol/L (98-107) Carbon Dioxide Level 24 mmol/L (21-32) Anion Gap 8 (6-14) Blood Urea Nitrogen 18 mg/dL (8-26) Creatinine 1.9 mg/dL (0.7-1.3) Estimated GFR (Cockcroft-Gault) 37.7 Glucose Level 111 mg/dL (70-99) Calcium Level 8.9 mg/dL (8.5-10.1) Test 02/03/18 16:34 02/03/18 16:54 02/03/18 20:31 02/04/18 01:03 Glucose (Fingerstick) 58 mg/dL (70-99) 77 mg/dL (70-99) 231 mg/dL (70-99) 305 mg/dL (70-99) Test 02/04/18 03:40 02/04/18 06:49 White Blood Count 5.5 x10^3/uL (4.0-11.0) Red Blood Count 2.27 x10^6/uL (4.30-5.70) Hemoglobin 7.1 g/dL (13.0-17.5) Hematocrit 19.8 % (39.0-53.0) Mean Corpuscular Volume 87 fL (79-100) Mean Corpuscular Hemoglobin 31 pg (25-35) Mean Corpuscular Hemoglobin Concent 36 g/dL (31-37) Red Cell Distribution Width 13.1 % (11.5-14.5) Platelet Count 300 x10^3/uL (140-400) Neutrophils (%) (Auto) 60 % (31-73) Lymphocytes (%) (Auto) 26 % (24-48) Monocytes (%) (Auto) 10 % (0-9) Eosinophils (%) (Auto) 3 % (0-3) Basophils (%) (Auto) 1 % (0-3) Neutrophils # (Auto) 3.3 x10^3uL (1.8-7.7) Lymphocytes # (Auto) 1.4 x10^3/uL (1.0-4.8) Monocytes # (Auto) 0.6 x10^3/uL (0.0-1.1) Eosinophils # (Auto) 0.2 x10^3/uL (0.0-0.7) Basophils # (Auto) 0.0 x10^3/uL (0.0-0.2) Sodium Level 135 mmol/L (136-145) Potassium Level 4.8 mmol/L (3.5-5.1) Chloride Level 102 mmol/L (98-107) Carbon Dioxide Level 25 mmol/L (21-32) Anion Gap 8 (6-14) Blood Urea Nitrogen 17 mg/dL (8-26) Creatinine 1.7 mg/dL (0.7-1.3) Estimated GFR (Cockcroft-Gault) 42.9 Glucose Level 309 mg/dL (70-99) Calcium Level 9.0 mg/dL (8.5-10.1) Iron Level 26 ug/dL (65-175) Total Iron Binding Capacity 175 ug/dL (250-450) Iron Saturation 15 % (15-34) Glucose (Fingerstick) 222 mg/dL (70-99) Laboratory Tests Test 02/03/18 10:56 02/03/18 16:34 02/03/18 16:54 02/03/18 20:31 Glucose (Fingerstick) 211 mg/dL (70-99) 58 mg/dL (70-99) 77 mg/dL (70-99) 231 mg/dL (70-99) Test 02/04/18 01:03 02/04/18 03:40 02/04/18 06:49 Glucose (Fingerstick) 305 mg/dL (70-99) 222 mg/dL (70-99) White Blood Count 5.5 x10^3/uL (4.0-11.0) Red Blood Count 2.27 x10^6/uL (4.30-5.70) Hemoglobin 7.1 g/dL (13.0-17.5) Hematocrit 19.8 % (39.0-53.0) Mean Corpuscular Volume 87 fL (79-100) Mean Corpuscular Hemoglobin 31 pg (25-35) Mean Corpuscular Hemoglobin Concent 36 g/dL (31-37) Red Cell Distribution Width 13.1 % (11.5-14.5) Platelet Count 300 x10^3/uL (140-400) Neutrophils (%) (Auto) 60 % (31-73) Lymphocytes (%) (Auto) 26 % (24-48) Monocytes (%) (Auto) 10 % (0-9) Eosinophils (%) (Auto) 3 % (0-3) Basophils (%) (Auto) 1 % (0-3) Neutrophils # (Auto) 3.3 x10^3uL (1.8-7.7) Lymphocytes # (Auto) 1.4 x10^3/uL (1.0-4.8) Monocytes # (Auto) 0.6 x10^3/uL (0.0-1.1) Eosinophils # (Auto) 0.2 x10^3/uL (0.0-0.7) Basophils # (Auto) 0.0 x10^3/uL (0.0-0.2) Sodium Level 135 mmol/L (136-145) Potassium Level 4.8 mmol/L (3.5-5.1) Chloride Level 102 mmol/L (98-107) Carbon Dioxide Level 25 mmol/L (21-32) Anion Gap 8 (6-14) Blood Urea Nitrogen 17 mg/dL (8-26) Creatinine 1.7 mg/dL (0.7-1.3) Estimated GFR (Cockcroft-Gault) 42.9 Glucose Level 309 mg/dL (70-99) Calcium Level 9.0 mg/dL (8.5-10.1) Iron Level 26 ug/dL (65-175) Total Iron Binding Capacity 175 ug/dL (250-450) Iron Saturation 15 % (15-34) Medications Active Scripts Medications Dose Route/Sig Max Daily Dose Days Date Category Prograf (Tacrolimus) 1 Mg Capsule 3 Cap PO QHS 01/24/18 Reported Prograf (Tacrolimus) 1 Mg Capsule 4 Cap PO DAILY 01/24/18 Reported Lantus Solostar (Insulin Glargine,Hum.rec.anlog) 100 Unit/1 Ml Insuln.pen 4 Unit SQ DAILYWBKFT 01/24/18 Reported Lantus Solostar (Insulin Glargine,Hum.rec.anlog) 100 Unit/1 Ml Insuln.pen 4 Unit SQ QHS 01/24/18 Reported Amlodipine Besylate 5 Mg Tablet 5 Mg PO DAILY 01/24/18 Reported Clonidine Hcl 0.2 Mg Tablet 1 Tab PO BID 01/24/18 Reported Oxycodone-Acetaminophen 5-325 (Oxycodone Hcl/Acetaminophen) 1 Each Tablet 1 Tab PO PRN Q4HRS PRN 07/15/16 Rx Clopidogrel (Clopidogrel Bisulfate) 75 Mg Tablet 1 Tab PO DAILY 07/15/16 Reported Cellcept (Mycophenolate Mofetil) 250 Mg Capsule 1 Cap PO BID 07/15/16 Reported Pantoprazole Sodium 20 Mg Tablet.dr 20 Mg PO DAILY 07/15/16 Reported Hydrochlorothiazide Capsule (Hydrochlorothiazide) 12.5 Mg Capsule 10 Mg PO BID 07/15/16 Reported Carvedilol 25 Mg Tablet 2 Tab PO DAILYBFRSUP 07/15/16 Reported Comments CXR 02/02 IMPRESSION: 1. Bibasilar lung airspace opacities or infiltrates slightly improved compared to prior exam. 2. Mildly improved congestive changes. Electronically signed by: Jerry Mascorro MD (02/02/2018 9:55 AM) [facility] ct chest 1. Consolidating infiltrates in both lungs, greatest in the left lower lobe, likely due to pneumonia or other inflammatory process. 2. There are several small groundglass nodules in the right lower lobe, may be related to the above process, could also be monitored with short-term follow-up CT. 3. Pleural effusions, left greater than right. 4. Distention of the upper abdominal bowel loops, correlate for symptoms of ileus or obstruction. 5. Partially visualized kidneys are very small and atrophic. Electronically signed by: Fahad Portillo MD (01/30/2018 1:43 PM) [facility] Impression . 1. Acute respiratory failure. 2. Abnormal cxr / ct chest c/w pneumonia. Nodules likely inflammatory. CXR improving 3. suspect Acute on chronic heart failure. 4. End-stage renal disease, status post renal transplant. 5. Immunocompromised. 6. Accelerated hypertension. 7. Type 2 diabetes. 8. Anemia, acute on chronic Plan . ok to d/c follow up with pcp SOPHIA MCGOWAN MD Feb 04, 2018 09:53
[2018-02-04] MEDS: MORPHINE SULFATE 2 MG/ML VIAL. IV PRN (09:56)
--- NOTE | 2018-02-04 10:13 | PDOC ---
Infectious Disease Note Subjective Subjective Getting ready to go on a 6 minute walk Feeling alright - better Jacobo pain/F/C/SOA ROS ROS per HPI otherwise neg Vital Sign Vital Signs Vital Signs Date Time Temp Pulse Resp B/P (MAP) Pulse Ox O2 Delivery O2 Flow Rate FiO2 02/04/18 09:56 Nasal Cannula 2.0 02/04/18 08:24 18 02/04/18 08:21 89 177/73 02/04/18 07:40 98.7 96 98.7 Physical Exam PHYSICAL EXAM GENERAL: Sitting on the side of the bed, alert. Now in chair and eating. looks well HEENT: Left eye prosthesis. Oral cavity, pharynx pink, moist NECK: Supple. LUNGS: Decreased aeration bases, nonlabored HEART: S1 and S2. ABDOMEN: Bowel sounds active. Soft, nontender. : Whitley in place EXTREMITIES: Ommjl-zmz-xpmq amputation bilaterally. No cyanosis. SKIN: Warm, without rash. NEUROLOGIC: Alert and oriented x 3. Labs Lab Laboratory Tests Test 02/03/18 10:56 02/03/18 16:34 02/03/18 16:54 02/03/18 20:31 Glucose (Fingerstick) 211 mg/dL (70-99) 58 mg/dL (70-99) 77 mg/dL (70-99) 231 mg/dL (70-99) Test 02/04/18 01:03 02/04/18 03:40 02/04/18 06:49 Glucose (Fingerstick) 305 mg/dL (70-99) 222 mg/dL (70-99) White Blood Count 5.5 x10^3/uL (4.0-11.0) Red Blood Count 2.27 x10^6/uL (4.30-5.70) Hemoglobin 7.1 g/dL (13.0-17.5) Hematocrit 19.8 % (39.0-53.0) Mean Corpuscular Volume 87 fL (79-100) Mean Corpuscular Hemoglobin 31 pg (25-35) Mean Corpuscular Hemoglobin Concent 36 g/dL (31-37) Red Cell Distribution Width 13.1 % (11.5-14.5) Platelet Count 300 x10^3/uL (140-400) Neutrophils (%) (Auto) 60 % (31-73) Lymphocytes (%) (Auto) 26 % (24-48) Monocytes (%) (Auto) 10 % (0-9) Eosinophils (%) (Auto) 3 % (0-3) Basophils (%) (Auto) 1 % (0-3) Neutrophils # (Auto) 3.3 x10^3uL (1.8-7.7) Lymphocytes # (Auto) 1.4 x10^3/uL (1.0-4.8) Monocytes # (Auto) 0.6 x10^3/uL (0.0-1.1) Eosinophils # (Auto) 0.2 x10^3/uL (0.0-0.7) Basophils # (Auto) 0.0 x10^3/uL (0.0-0.2) Sodium Level 135 mmol/L (136-145) Potassium Level 4.8 mmol/L (3.5-5.1) Chloride Level 102 mmol/L (98-107) Carbon Dioxide Level 25 mmol/L (21-32) Anion Gap 8 (6-14) Blood Urea Nitrogen 17 mg/dL (8-26) Creatinine 1.7 mg/dL (0.7-1.3) Estimated GFR (Cockcroft-Gault) 42.9 Glucose Level 309 mg/dL (70-99) Calcium Level 9.0 mg/dL (8.5-10.1) Iron Level 26 ug/dL (65-175) Total Iron Binding Capacity 175 ug/dL (250-450) Iron Saturation 15 % (15-34) Micro Objective Assessment Acute respiratory failure with LLL infiltrate. clinically improving -flu screen neg, mycoplasma neg, sputum poor quality -EBV and CMV PCR = neg Anemia Fever - Resolved. cultures neg Pyuria UC neg Chronic immunosuppression. h/o renal transplant 2007 Allergy PCN/amoxicillin - rash. Tolerated Zosyn w/o problems Acute hypoxic respiratory failure - venti mask 50% FiO2 -Influenza screen neg Acute on chronic CHF ESRD s/p renal transplant. now worsening creat Accelerated hypertension. PVD. h/o BKA bilat DM type I (since age 14 months) Diarrhea. c. diff neg 02/01 Plan Plan of Care Empiric cefepime, (01/28) renal dosing, d/c today Previously on Zyvox and Zosyn (01/26) Supportive care Anticipation discharge home possible today D/w RN D/w renal/Dr. Nguyen Attending Co-Sign Attending Co-Sign The patient was seen and interviewed as well as examined at the bedside. The chart was reviewed. The case was discussed. Agree with the plan of care. SHIVA MEANS APRN Feb 04, 2018 10:13 MADYSON PRADO MD Feb 04, 2018 12:54
[2018-02-04 10:54] VITALS: BP 127/69
--- NOTE | 2018-02-04 11:59 | PDOC ---
Subjective: Subjective: Tolerating PO w/o n/v. Denies abd pain. 2-3 watery stools daily. Objective: Objective: Per RN - might DC today. 1 stool today, 1 overnight. Vital Signs: Vital Signs Date Time Temp Pulse Resp B/P (MAP) Pulse Ox O2 Delivery O2 Flow Rate FiO2 02/04/18 10:54 98.7 88 18 127/69 (88) 97 Nasal Cannula 2.0 98.7 Labs: Laboratory Tests Test 02/03/18 16:34 02/03/18 16:54 02/03/18 20:31 02/04/18 01:03 Glucose (Fingerstick) 58 mg/dL 77 mg/dL 231 mg/dL 305 mg/dL Test 02/04/18 03:40 02/04/18 06:49 02/04/18 11:08 White Blood Count 5.5 x10^3/uL Red Blood Count 2.27 x10^6/uL Hemoglobin 7.1 g/dL Hematocrit 19.8 % Mean Corpuscular Volume 87 fL Mean Corpuscular Hemoglobin 31 pg Mean Corpuscular Hemoglobin Concent 36 g/dL Red Cell Distribution Width 13.1 % Platelet Count 300 x10^3/uL Neutrophils (%) (Auto) 60 % Lymphocytes (%) (Auto) 26 % Monocytes (%) (Auto) 10 % Eosinophils (%) (Auto) 3 % Basophils (%) (Auto) 1 % Neutrophils # (Auto) 3.3 x10^3uL Lymphocytes # (Auto) 1.4 x10^3/uL Monocytes # (Auto) 0.6 x10^3/uL Eosinophils # (Auto) 0.2 x10^3/uL Basophils # (Auto) 0.0 x10^3/uL Sodium Level 135 mmol/L Potassium Level 4.8 mmol/L Chloride Level 102 mmol/L Carbon Dioxide Level 25 mmol/L Anion Gap 8 Blood Urea Nitrogen 17 mg/dL Creatinine 1.7 mg/dL Estimated GFR (Cockcroft-Gault) 42.9 Glucose Level 309 mg/dL Calcium Level 9.0 mg/dL Iron Level 26 ug/dL Total Iron Binding Capacity 175 ug/dL Iron Saturation 15 % Glucose (Fingerstick) 222 mg/dL 110 mg/dL PE: GEN: NAD, up to chair LUNGS: NC HEART: RRR ABD: S/ND/NT NEURO/PSYCH: A & O 3 A/P: Gastroparesis Diarrhea - C Diff neg ACD -- Tolerating PO. Still watery diarrhea. ?try Imodium PURA-ELIOT SOFIA Feb 04, 2018 11:59
[2018-02-04] MEDS ORDERED: IRON SUCROSE COMPLEX 200 MG in IV NORMAL SALINE 100ML 100 ML IV ONE (14:30)
--- NOTE | 2018-02-04 14:33 | PDOC3 ---
Discharge Summary [facility] Date of Admission: Jan 23, 2018 Discharge Date: Feb 04, 2018 Admitting Diagnosis esophagitis anemia , chronic dz Hypokalemia - improving, nephrology following Constipation, now with diarrhea - improving JAMAL, approaching baseline Cr (1.9) Hospital acquired pneumonia HTN - Up again today Severe anemia - Hb 6.7, will hold off on transfusion at this time H/o cluster headache H/o renal transplant 2007 H/o DM1, hypoglycemic glucose down to 34 - will monitor H/o HLP H/o CAD Final Diagnosis CONSULTS onco renal gi id Brief Hospital Course Mr. Sarkar is a 52 old M, with bl BKA, 2 times kidney transplant, came for N/V, diarrhea. EGD showed esophagitis. cdiff neg. he was found LLL PNA, was on iv abx, dc home with abx as PER ID. also was found anemia, got transfusion. dc home. no need home o2. dc time 35min. GENERAL: Propped up in bed, alert, NAD HEENT: Left eye prosthesis. Oral cavity, pharynx pink, dry. No lesions seen. NECK: Supple. LUNGS: Decreased aeration bases, nonlabored HEART: S1 and S2. ABDOMEN: Bowel sounds active. Soft, nontender. : Whitley in place with clear urine EXTREMITIES: Vcica-ogf-onme amputation bilaterally. No cyanosis. SKIN: Warm, without rash. NEUROLOGIC: Alert and oriented x 3. Patient History: FHx: diabetes mellitus 33 FATHER 32 MOTHER Family history: Angina (situation) Disposition home CONDITION AT DISCHARGE: Improved Scheduled Amlodipine Besylate (Amlodipine Besylate), 5 MG PO DAILY, (Reported) Carvedilol (Carvedilol), 2 TAB PO DAILYBFRSUP, (Reported) Clonidine Hcl (Clonidine Hcl), 1 TAB PO BID, (Reported) Clopidogrel Bisulfate (Clopidogrel), 1 TAB PO DAILY, (Reported) Insulin Glargine,Hum.rec.anlog (Lantus Solostar), 4 UNIT SQ QHS, (Reported) Insulin Glargine,Hum.rec.anlog (Lantus Solostar), 4 UNIT SQ DAILYWBKFT, ( Reported) Mycophenolate Mofetil (Cellcept), 1 CAP PO BID, (Reported) Pantoprazole Sodium (Pantoprazole Sodium), 20 MG PO DAILY, (Reported) Tacrolimus (Prograf), 4 CAP PO DAILY, (Reported) Tacrolimus (Prograf), 3 CAP PO QHS, (Reported) Scheduled PRN Oxycodone Hcl/Acetaminophen (Oxycodone-Acetaminophen 5-325), 1 TAB PO PRN Q4HRS PRN for PAIN Discontinued Medications Hydrochlorothiazide (Hydrochlorothiazide Capsule ), 10 MG PO BID, (Reported) LE BOLDEN MD Feb 04, 2018 14:33
[2018-02-04 14:45] VITALS: BP 134/62
[2018-02-04] MEDS: fentaNYL PF VIAL 100 MCG/2 ML VIAL IV PRN (15:57)
[2018-02-04 16:53] VITALS: BP 134/62
[2018-02-05] MEDS ORDERED: PANTOPRAZOLE 40 MG TABLET.DR. PO SCH (09:00)
== END 2018-02-04 18:24 | disposition home or self-care (01) | DRG 682 ==
LOC: ER 16:57 → 2 NORTH 22:00
PROVIDERS: ADMIT Internal Medicine; ATTEND Internal Medicine
PROC: 0DJ08ZZ Inspection of Upper Intestinal Tract, Via Natural or Artificial Opening Endoscopic (ICD-10-PCS; principal; 2018-01-25 15:30)
PROC: 5A09357 Assistance with Respiratory Ventilation, Less than 24 Consecutive Hours, Continuous Positive Airway Pressure (ICD-10-PCS; 2018-01-28)
PROC: 5A09357 Assistance with Respiratory Ventilation, Less than 24 Consecutive Hours, Continuous Positive Airway Pressure (ICD-10-PCS; 2018-01-29)
DX: N17.9 Acute kidney failure, unspecified (principal); J96.01 Acute respiratory failure with hypoxia; J18.1 Lobar pneumonia, unspecified organism; I13.2 Hypertensive heart and chronic kidney disease with heart failure and with stage 5 chronic kidney disease, or end stage renal disease; I16.1 Hypertensive emergency; I67.4 Hypertensive encephalopathy; H33.22 Serous retinal detachment, left eye; K21.0 Gastro-esophageal reflux disease with esophagitis; I50.9 Heart failure, unspecified; N18.6 End stage renal disease; E10.43 Type 1 diabetes mellitus with diabetic autonomic (poly)neuropathy; E10.51 Type 1 diabetes mellitus with diabetic peripheral angiopathy without gangrene; E10.65 Type 1 diabetes mellitus with hyperglycemia; I25.10 Atherosclerotic heart disease of native coronary artery without angina pectoris; H54.62 Unqualified visual loss, left eye, normal vision right eye; E78.5 Hyperlipidemia, unspecified; M19.90 Unspecified osteoarthritis, unspecified site; G44.009 Cluster headache syndrome, unspecified, not intractable; D63.1 Anemia in chronic kidney disease; E87.6 Hypokalemia; Y95 Nosocomial condition; Z91.040 Latex allergy status; Z79.4 Long term (current) use of insulin; Z87.891 Personal history of nicotine dependence; Z83.3 Family history of diabetes mellitus; Z88.8 Allergy status to other drugs, medicaments and biological substances; Z88.1 Allergy status to other antibiotic agents; Z95.5 Presence of coronary angioplasty implant and graft; E10.22 Type 1 diabetes mellitus with diabetic chronic kidney disease; Z97.0 Presence of artificial eye; Z88.0 Allergy status to penicillin; Z89.511 Acquired absence of right leg below knee; Z89.512 Acquired absence of left leg below knee; Z79.899 Other long term (current) drug therapy
CPT/HCPCS: 36415; 36600; 43235; 70551; 71045; 71250; 74176; 76770; 80048; 80053; 80061; 80197; 81001; 82010; 82728; 82805; 82962; 83540; 83550; 83605; 83735; 84100; 84443; 84484; 85007; 85025; 85027; 85045; 85651; 86738; 86850; 86900; 86901; 86920; 87040; 87045; 87070; 87086; 87205; 87328; 87449; 87493; 87497; 87799; 87804; 88300; 93005; 93306; 93975; 94618; 94640; 94760; 96361; 96374; 96375; C9113; J0692; J0780; J0881; J1200; J1756; J1815; J1940; J2020; J2270; J2405; J2543; J2704; J2765; J3010; J3475; J3490; J7030; J7042; J7050; J7507; J7517; J8597; 97116; 97530; 97535; 99285-25

== ENCOUNTER 2018-07-26 07:30 | Emergency (ER) | payer BC ==
[~2018-07-26] VITALS: Ht 170.2 cm; Wt 68.0 kg
[~2018-07-26 07:30] MED LIST changes: +AMLO10TA8 PO; +AMLO5TAB10 PO; +FERR325T14 PO; +GABA-585 PO; +GUAI5SYR PO; -HYDR12.53 PO; +HYDR12.575 PO; +INSU100C4 SQ; +INSU100I13 SQ; +METO10SO PO; +POLY17PO28 PO
--- NOTE | 2018-07-26 07:59 | PHYS DOC ---
Past Medical History Past Medical History: Diabetes-Type I, Hypertension, Migraines, Renal Failure, Other Additional Past Medical Histor: ACUTE RENAL FAILURE Past Surgical History: Other Additional Past Surgical Histo: KIDNEY TRANSPLANT,DIALYSIS CATH,DOUBLE BKA,HERNIA,L EYE IMPLANT Additional Information: nonsmoker Alcohol Use: None Drug Use: None Adult General Chief Complaint Chief Complaint: bilateral hand numbness HPI HPI 53-year-old male presenting to the emergency department today with numbness in his hands bilaterally. This is been going on for months. He reports that it recurs. It does not happen at specific times of the day. It worsened this morning at about 5 AM and has not gone away. He denies any headaches fevers or chills. He has a medical history of a history of a renal transplant in 2007 has diabetes and hypertension. He has a left aophr-ymq-layv amputation and a right below the knee amputation. Review of systems is negative for chest pain shortness of breath abdominal pain back pain nausea vomiting fevers or chills. All other review of systems is negative unless otherwise noted in history of present illness. ED course: 23-year-old male presenting to the emergency department today with bilateral hand numbness. Heart rate 79. Saturation 99% on room air. Blood pressure 158/68. Blood work shows chronic anemia. Chemistry panel shows baseline chronic kidney disease. Blood sugar within normal limits. Head CT is negative. Patient has not had any neck trauma or neck pain. I spoke with Dr. Beauchamp who recommends outpatient MRI of the neck and EMG studies. We'll have him follow-up with Dr. Beauchamp in his PCP. Follow-up with PCP 1-[address] Beauchamp follow-up in 5-7 days. Ecpj-nh-eumd discharge instructions and return precautions given. Any worsening numbness or development of weakness or changes in his vision showed prompt him to return to the emergency department immediately. Review of Systems Review of Systems SEE ABOVE. Allergies Allergies Allergies Coded Allergies Type Severity Reaction Last Updated Verified amoxicillin Allergy Intermediate Rash 04/26/18 Yes latex Allergy Intermediate Rash 04/26/18 Yes promethazine Allergy Intermediate 04/26/18 Yes succinylcholine Allergy Intermediate 04/26/18 Yes Physical Exam Physical Exam SEE ABOVE Constitutional: Well developed, well nourished, no acute distress, non-toxic appearance. [] HENT: Normocephalic, atraumatic, bilateral external ears normal, oropharynx moist, no oral exudates, nose normal. Eyes: PERRLA, EOMI, conjunctiva normal, no discharge. [] Neck: Normal range of motion, no tenderness, supple, no stridor. Cardiovascular:Heart rate regular rhythm, no murmur Lungs & Thorax: Bilateral breath sounds clear to auscultation Abdomen: Bowel sounds normal, soft, no tenderness, no masses, no pulsatile masses. Skin: Warm, dry, no erythema, no rash. [] Back: No tenderness, no CVA tenderness. Extremities: amputee, otherwise no tenderness, no cyanosis, no clubbing, ROM intact, no edema. [] Neurologic: Alert and oriented X 3, normal motor function, normal sensory function, no focal deficits noted. Psychologic: Affect normal, judgement normal, mood normal. Current Patient Data Vital Signs Vital Signs Date Time Temp Pulse Resp B/P (MAP) Pulse Ox O2 Delivery O2 Flow Rate FiO2 07/26/18 07:36 98.2 82 16 124/60 (81) 98 98.2 Lab Values Laboratory Tests Test 07/26/18 08:10 White Blood Count 4.0 x10^3/uL (4.0-11.0) Red Blood Count 2.91 x10^6/uL (4.30-5.70) L Hemoglobin 8.6 g/dL (13.0-17.5) L Hematocrit 25.0 % (39.0-53.0) L Mean Corpuscular Volume 86 fL (79-100) Mean Corpuscular Hemoglobin 30 pg (25-35) Mean Corpuscular Hemoglobin Concent 34 g/dL (31-37) Red Cell Distribution Width 14.1 % (11.5-14.5) Platelet Count 205 x10^3/uL (140-400) Neutrophils (%) (Auto) 62 % (31-73) Lymphocytes (%) (Auto) 23 % (24-48) L Monocytes (%) (Auto) 11 % (0-9) H Eosinophils (%) (Auto) 3 % (0-3) Basophils (%) (Auto) 1 % (0-3) Neutrophils # (Auto) 2.5 x10^3uL (1.8-7.7) Lymphocytes # (Auto) 0.9 x10^3/uL (1.0-4.8) L Monocytes # (Auto) 0.4 x10^3/uL (0.0-1.1) Eosinophils # (Auto) 0.1 x10^3/uL (0.0-0.7) Basophils # (Auto) 0.0 x10^3/uL (0.0-0.2) Sodium Level 137 mmol/L (136-145) Potassium Level 4.3 mmol/L (3.5-5.1) Chloride Level 102 mmol/L (98-107) Carbon Dioxide Level 23 mmol/L (21-32) Anion Gap 12 (6-14) Blood Urea Nitrogen 42 mg/dL (8-26) H Creatinine 2.8 mg/dL (0.7-1.3) H Estimated GFR (Cockcroft-Gault) 24.0 BUN/Creatinine Ratio 15 (6-20) Glucose Level 104 mg/dL (70-99) H Calcium Level 9.1 mg/dL (8.5-10.1) Total Bilirubin 0.2 mg/dL (0.2-1.0) Aspartate Amino Transferase (AST) 15 U/L (15-37) Alanine Aminotransferase (ALT) 9 U/L (16-63) L Alkaline Phosphatase 162 U/L (46-116) H Total Protein 7.9 g/dL (6.4-8.2) Albumin 3.0 g/dL (3.4-5.0) L Albumin/Globulin Ratio 0.6 (1.0-1.7) L Laboratory Tests 07/26/18 08:10 Laboratory Tests 07/26/18 08:10 EKG EKG EKG reviewed by myself shows sinus rhythm with a regular rate. ST segments congruent. Mild repolarization in lead V2 and V3. Otherwise not suggestive of ACS. Nonspecific T-wave flattening present.[] Radiology/Procedures Radiology/Procedures [] Course & Med Decision Making Course & Med Decision Making Pertinent Labs and Imaging studies reviewed. (See chart for details) [] Dragon Disclaimer Dragon Disclaimer This electronic medical record was generated, in whole or in part, using a voice recognition dictation system. Departure Departure Impression: Primary Impression: Bilateral hand numbness Disposition: HOME, SELF-CARE Condition: STABLE Referrals: UNKNOWN PCP NAME (PCP) Patient Instructions: Peripheral Nerve Problems-Brief Additional Instructions: Thank you for allowing us to participate in your care today. Return to the emergency department you have any new or worsening symptoms, or if you are concerned for any reason. Return to emergency department if you have any new or concerning symptoms including but not limited to fever, chills, nausea, vomiting, intractable pain, any new rashes, chest pain, shortness of air, uncontrolled bleeding, difficulty breathing, and/or vision loss. Follow up with your primary care physician within 1-2 days. Follow up with Dr. Lloyd in 5-7 days. Call your Primary Doctor tomorrow and inform them of your visit today. If you do not have a primary care provider we are happy to provide you with a list of our primary care providers contact information. This condition should be evaluated by your primary care physician and any recommended consulting services for continued management within 2 days after discharge. If at any time, you are having difficulty getting into your primary care doctor or a specialist, return to the emergency department. JADON DOMINGUEZ MD Jul 26, 2018 07:59
[2018-07-26 08:18] LABS: BASO % 1 % (0-3); EOS # 0.1 x10^3/uL (0.0-0.7); EOS % 3 % (0-3); HEMOGLOBIN 8.6 g/dL (13.0-17.5); LYMPH # 0.9 x10^3/uL (1.0-4.8); LYMPH % 23 % (24-48); MEAN CORPUSCULAR HEMOGLOBIN 30 pg (25-35); MEAN CORPUSCULAR HGB CONC 34 g/dL (31-37); MEAN CORPUSCULAR VOLUME 86 fL (79-100); MONO # 0.4 x10^3/uL (0.0-1.1); MONO % 11 % (0-9); NEUT # 2.5 x10^3uL (1.8-7.7); NEUT % 62 % (31-73); PLATELET COUNT 205 x10^3/uL (140-400); RED BLOOD COUNT 2.91 x10^6/uL (4.30-5.70); RED CELL DISTRIBUTION WIDTH 14.1 % (11.5-14.5)
[2018-07-26 08:29] VITALS: BP 153/71
[2018-07-26 08:36] LABS: CALCIUM 9.1 mg/dL (8.5-10.1); CREATININE 2.8 mg/dL (0.7-1.3); POTASSIUM 4.3 mmol/L (3.5-5.1)
[2018-07-26 08:42] LABS: ALBUMIN/GLOBULIN RATIO 0.6 (1.0-1.7); TOTAL BILIRUBIN 0.2 mg/dL (0.2-1.0); TOTAL PROTEIN 7.9 g/dL (6.4-8.2)
--- NOTE | 2018-07-26 09:07 | RAD ---
PQRS Compliance Statement: One or more of the following individualized dose reduction techniques were utilized for this examination: 1. Automated exposure control 2. Adjustment of the mA and/or kV according to patient size 3. Use of iterative reconstruction technique CT HEAD WITHOUT CONTRAST History: left side arm weakness Comparison: CT head without contrast, July 15, 2016. Procedure: Axial images are obtained of the head from the skull base through the vertex without IV contrast. Findings: The ventricles and sulci are normal for the patient's age. No mass-effect, midline shift, hemorrhage, extra-axial fluid collection, or obvious acute infarction is identified. Basilar cisterns are patent. Punctate lacunar infarct versus prominent perivascular space of the right thalamus, not seen previously. Bone windows demonstrate no acute calvarial abnormality. Left globe prosthesis redemonstrated. The visualized paranasal sinuses are clear. Mastoid air cells are well aerated. IMPRESSION: No acute intracranial abnormality. Electronically signed by: Roberto Shanks MD (07/26/2018 9:04 AM) [id number]
[2018-07-26] MEDS ORDERED: GABA-585 PO (09:31)
--- NOTE | 2018-07-26 13:22 | EKG ---
[facility] [address] [place] [address] Test Date: 2018-07-26 Test Time: 07:50:08 Pat Name: CARL MORFIN Department: Room: Gender: M [employer]: : [id number] Requested By: JADON DOMINGUEZ Order Number: [id number] Reading MD: Carl Tenorio Measurements Intervals [place] Rate: 83 P: 57 MT: 164 QRS: -24 QRSD: 110 T: 154 QT: 376 QTc: 442 Interpretive Statements SINUS RHYTHM LEFTWARD AXIS LVH WITH REPOLARIZATION ABNORMALITY QRS(T) CONTOUR ABNORMALITY CONSISTENT WITH INFERIOR INFARCT PROBABLY OLD ABNORMAL ECG Electronically Signed On 07-31-2018 12:05:12 CDT by Carl Tenorio
[2018-08-28] MEDS ORDERED: INSU100I11 SQ (14:12)
[2018-08-28] MEDS ORDERED: FOLI0.8T21 PO (14:12)
[2018-08-28] MEDS ORDERED: VITS56.7 TP (14:12)
[2018-08-28] MEDS ORDERED: INSU100I13 SQ (14:12)
[2018-08-28] MEDS ORDERED: HYDR-2761 PO (14:12)
== END 2018-07-26 09:29 | disposition home or self-care (01) ==
LOC: ER 07:30
DX: R20.0 Anesthesia of skin (principal); D64.9 Anemia, unspecified; I12.9 Hypertensive chronic kidney disease with stage 1 through stage 4 chronic kidney disease, or unspecified chronic kidney disease; E10.22 Type 1 diabetes mellitus with diabetic chronic kidney disease; N18.9 Chronic kidney disease, unspecified; N17.9 Acute kidney failure, unspecified; Z94.0 Kidney transplant status; Z99.2 Dependence on renal dialysis; G43.909 Migraine, unspecified, not intractable, without status migrainosus; Z88.1 Allergy status to other antibiotic agents; Z91.040 Latex allergy status; Z88.8 Allergy status to other drugs, medicaments and biological substances
CPT/HCPCS: 36415; 70450; 80053; 85025; 93005; 99285-25

== ENCOUNTER → 2018-09-10 | Outpatient (CLI) | payer OTHER ==
[2018-08-28 15:00] VITALS: BP 117/54
[~2018-09-10] MED LIST changes: +FOLI0.8T21 PO; +HYDR-2761 PO; +INSU100I11 SQ; +VITS56.7 TP
[2018-09-12 19:10] LABS: ANA INTERP Negative (.)
[2018-09-12 20:08] LABS: ALPHA 1 0.3 g/dL (0.0-0.4); ALPHA 2 0.8 g/dL (0.4-1.0); BETA 0.9 g/dL (0.7-1.3); GAMMA 2.6 g/dL (0.4-1.8); PROTEIN TOTAL 7.6 g/dL (6.0-8.5); SPEP AG RATIO 0.7 (0.7-1.7)
== END | disposition home or self-care (01) ==
LOC: LAB 10:30
PROVIDERS: ATTEND Psychiatry & Neurology Neurology with Special Qualifications in Child Neurology
DX: E10.42 Type 1 diabetes mellitus with diabetic polyneuropathy (principal); R53.1 Weakness; R20.0 Anesthesia of skin
CPT/HCPCS: 36415; 82607; 82746; 84165; 84443; 85651; 86038

== ENCOUNTER → 2018-10-25 | Outpatient (CLI) | payer OTHER ==
[2018-08-28 15:00] VITALS: BP 117/54
== END | disposition home or self-care (01) ==
LOC: SPEC 11:24
PROVIDERS: ATTEND Psychiatry & Neurology Neurology with Special Qualifications in Child Neurology
DX: R70.0 Elevated erythrocyte sedimentation rate (principal)
CPT/HCPCS: 36415; 85651

== ENCOUNTER 2018-11-04 05:56 | Day surgery (SDC) | payer OTHER ==
[2018-11-04] MEDS ORDERED: HEPARIN SODIUM 5,000 UNIT in IV NORMAL SALINE 500ML BAG 500 ML IRR ONE (06:00)
[2018-11-04] MEDS ORDERED: BUPIVACAINE-EPI 0.25%-1:200000 MPF 30 ML VIAL. ONE (06:31)
[2018-11-04] MEDS ORDERED: IV NORMAL SALINE 1000ML BAG 1,000 ML IV SCH (06:45)
[2018-11-04] MEDS ORDERED: OMEP20TA8 PO (06:50)
[2018-11-04] MEDS ORDERED: ATOR40TA59 PO (06:52)
[2018-11-04] MEDS ORDERED: ONDANSETRON PF 4 MG/2 ML VIAL. IV PRN (07:00)
[2018-11-04] MEDS ORDERED: LIDOCAINE 1% PF 2 ML VIAL. ID PRN (07:00)
[2018-11-04] MEDS ORDERED: PROCHLORPERAZINE 10 MG/2 ML VIAL. IV PRN (07:00)
[2018-11-04] MEDS ORDERED: IV RINGERS,LACTATED 1000ML 1,000 ML IV SCH (07:00)
[2018-11-04] MEDS ORDERED: MORPHINE SULFATE 2 MG/ML VIAL. IV PRN (07:00)
[2018-11-04] MEDS ORDERED: HYDROmorphone 2 MG/ML VIAL IV PRN (07:00)
[2018-11-04] MEDS ORDERED: fentaNYL PF VIAL 100 MCG/2 ML VIAL IV PRN (07:00)
[2018-11-04 07:05] LABS: BASO % 1 % (0-3); EOS # 1.3 x10^3/uL (0.0-0.7); EOS % 20 % (0-3); HEMATOCRIT 23.1 % (39.0-53.0); HEMOGLOBIN 7.8 g/dL (13.0-17.5); LYMPH # 1.4 x10^3/uL (1.0-4.8); LYMPH % 21 % (24-48); MEAN CORPUSCULAR HEMOGLOBIN 31 pg (25-35); MEAN CORPUSCULAR HGB CONC 34 g/dL (31-37); MEAN CORPUSCULAR VOLUME 93 fL (79-100); MONO # 0.6 x10^3/uL (0.0-1.1); MONO % 9 % (0-9); NEUT # 3.2 x10^3/uL (1.8-7.7); NEUT % 50 % (31-73); PLATELET COUNT 238 x10^3/uL (140-400); RED CELL DISTRIBUTION WIDTH 15.3 % (11.5-14.5); WHITE BLOOD COUNT 6.5 x10^3/uL (4.0-11.0)
[2018-11-04] MEDS ORDERED: PROPOFOL 20 ML IV ONE (07:29)
[2018-11-04] MEDS ORDERED: fentaNYL PF VIAL 100 MCG/2 ML VIAL ONE ×3 (07:29→10:49)
[2018-11-04] MEDS ORDERED: ONDANSETRON PF 4 MG/2 ML VIAL. ONE (07:30)
[2018-11-04] MEDS ORDERED: ROCURONIUM 100 MG/10 ML VIAL. ONE (07:30)
[2018-11-04 09:32] LABS: % BANDS 1 % (0-9); % BASOS 1 % (0-3); % EOS 19 % (0-5); % LYMPHS 25 % (24-48); % MONOS 7 % (0-10); % SEGS 47 % (35-66); ANISOCYTOSIS PRESENT; PLT ESTIMATE ADEQUATE (ADEQUATE)
[2018-11-04] MEDS ORDERED: GLYCOPYRROLATE 1 MG/5 ML VIAL. ONE (09:56)
[2018-11-04] MEDS ORDERED: NEOSTIGMINE 10 MG/10 ML VIAL. ONE (09:56)
[2018-11-04] MEDS: fentaNYL PF VIAL 100 MCG/2 ML VIAL IV PRN ×2 (10:11→10:53)
[2018-11-04] MEDS: INSULIN LISPRO 100 UNIT/ML 3ML VIAL for OP,RR ONLY. SQ PRN ×2 (10:22→11:21)
--- NOTE | 2018-11-04 10:28 | PDOC ---
BRIEF OPERATIVE NOTE Date: Nov 04, 2018 Pre-Op Diagnosis ESRD Post-Op Diagnosis same, abdominal adhesions Procedure Performed l/s RYNE, placement of PD catheter Surgeon David Clinical Rehabilitation Coordinator Salima SIMS Anesthesia Type: General Blood Loss 10cc IV Fluid 200cc Urine Output 50cc Specimens Obtained none Findings extensive omental adhesions Complications none Operative Note Wk # [id number] MARILIA MCKEON MD Nov 04, 2018 10:28
--- NOTE | 2018-11-04 10:40 | OP ---
DATE OF SURGERY: 11/04/2018 PREOPERATIVE DIAGNOSIS: End-stage renal disease. POSTOPERATIVE DIAGNOSIS: End-stage renal disease. PROCEDURE: Laparoscopic lysis of adhesions and placement of peritoneal dialysis catheter. ANESTHESIA: General endotracheal. ESTIMATED BLOOD LOSS: 10 mL. INTRAVENOUS: 200. URINE OUTPUT: 50. 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 He has issues with access in his left arm and is brought for attempted placement of peritoneal dialysis catheter. OPERATIVE FINDINGS: Extensive omental adhesions were present, otherwise unremarkable. DESCRIPTION OF PROCEDURE: The patient brought to the operating suite, given a general endotracheal anesthetic. Whitley catheter placed to dependent drainage and the abdomen prepped and draped in usual sterile fashion. A midline incision in the epigastrium was infiltrated with local anesthetic, incised and dissection carried down to the anterior sheath. This was elevated on each side of the midline with 0 Vicryl suture and we carefully entered the abdominal cavity. Omental adhesions were adherent to the abdominal wall and as such, we were unable to gain access to the abdominal cavity. A left upper quadrant port site was chosen, infiltrated with local, incised and with the direct vision, a 5 mm port, we were able to safely gain access into the abdominal cavity without damaging bowel. Pneumoperitoneum established. Camera inserted and under direct vision, we were able to place a left lower quadrant port site. This allowed takedown of omental adhesions to provide a space for peritoneal dialysis. Care was taken during the dissection to identify and avoid injury to the bowel. The catheter was placed intraabdominally through a left-sided incision. It was tunneled through the access site. Good hemostasis was present. The abdomen was decompressed. Catheter flushed with saline, which accepted readily and drained a similar amount. Catheter was "packed" with heparinized saline. Incisions closed with 3-0 Vicryl in subcutaneous tissue, see for skin, two 5-0 nylon stitches placed at the exit of the catheter, which had been a previous port site. Sterile dressings applied. Whitley catheter removed. The patient was awakened from his anesthetic and taken to the recovery room in satisfactory condition. MARILIA MCKEON MD DR: IAN/silviano JOB#: [id number] / [id number] MOR Gregg MD
[2018-11-04] MEDS ORDERED: HYDROcodone/APAP 5/325MG 1 TAB TABLET ONE (11:13)
[2018-11-04] MEDS ORDERED: HYDROcodone/APAP 5/325MG 1 TAB TABLET PO PRN (11:15)
[2018-11-04] MEDS ORDERED: DOCUSATE SODIUM 100 MG CAPSULE. PO PRN (11:15)
[2018-11-04 11:25] LABS: CALCIUM 8.9 mg/dL (8.5-10.1); CREATININE 4.5 mg/dL (0.7-1.3); GFR 13.9
[2018-11-04 11:41] LABS: ALBUMIN 2.9 g/dL (3.4-5.0); ALBUMIN/GLOBULIN RATIO 0.6 (1.0-1.7); TOTAL BILIRUBIN 0.3 mg/dL (0.2-1.0); TOTAL PROTEIN 7.9 g/dL (6.4-8.2)
[2018-11-04 11:50] VITALS: BP 146/66
[2018-11-04 11:55] LABS: POTASSIUM 4.9 mmol/L (3.5-5.1)
[2018-11-04] MEDS ORDERED: INSULIN LISPRO 300 UNITS/3 ML INSULN.PEN. SQ SCH (12:00)
--- NOTE | 2018-11-04 12:04 | DISCH ---
DISCHARGE INSTRUCTIONS Condition on Discharge Condition on Discharge: Stable Activity After Discharge Activity Instructions for Disc: Activity as tolerated Exercise Instruction after Dis: Progress as tolerated Driving Instructions after Dis: Do not drive Weight Bearing Status after Di: No restrictions Diet after Discharge Diet after Discharge: Renal Dialysis, Diabetic No Calorie Level Diet Texture: Regular Liquid Texture: Thin Liquid Swallowing Supervision: None needed Checks after Discharge Checks after discharge: Check blood sugar, ac/hs Follow-Up Follow up with: David next week Follow Up With: RESUME PLAVIX TOMORROW, 11/05 Treatment/Equipment after DC Adaptive Equipment Issued: MARILIA Duggan MD Nov 04, 2018 12:04
[2018-11-04] MEDS ORDERED: GABAPENTIN 300 MG CAPSULE. PO SCH (14:00)
[2018-11-04] MEDS ORDERED: CARVEDILOL 12.5 MG TABLET. PO SCH (17:00)
[2018-11-04] MEDS ORDERED: ATORVASTATIN CALCIUM 40 MG TABLET. PO SCH (21:00)
[2018-11-04] MEDS ORDERED: INSULIN GLARGINE 300 UNITS/3 ML INSULN.PEN. SQ SCH (21:00)
[2018-11-04] MEDS ORDERED: VITS A & D/LANOLIN TOPICAL OINTMENT 56GM TUBE. TP SCH (21:00)
[2018-11-04] MEDS ORDERED: cloNIDine HCL 0.2 MG TABLET PO SCH (21:00)
[2018-11-04] MEDS ORDERED: TACROLIMUS 0.5 MG CAPSULE PO SCH (21:00)
[2018-11-05] MEDS ORDERED: PANTOPRAZOLE 40 MG TABLET.DR. PO SCH (07:30)
[2018-11-05] MEDS ORDERED: FERROUS SULFATE 325 MG TABLET. PO SCH (09:00)
[2018-11-05] MEDS ORDERED: POLYETHYLENE GLYCOL 3350 17 GM PACKET. PO SCH (09:00)
[2018-11-05] MEDS ORDERED: amLODIPine BESYLATE 10 MG TABLET PO SCH (09:00)
[2018-11-05] MEDS ORDERED: TACROLIMUS 0.5 MG CAPSULE PO SCH (09:00)
[2018-11-05] MEDS ORDERED: FOLIC/VIT B COMP W-C (RENAL) TABLET. PO SCH (09:00)
== END 2018-11-04 12:35 | disposition home or self-care (01) ==
LOC: SURG 05:56
PROVIDERS: ATTEND Surgery
DX: E11.22 Type 2 diabetes mellitus with diabetic chronic kidney disease (principal); I12.0 Hypertensive chronic kidney disease with stage 5 chronic kidney disease or end stage renal disease; N18.6 End stage renal disease; I25.10 Atherosclerotic heart disease of native coronary artery without angina pectoris; Z87.01 Personal history of pneumonia (recurrent); Z96.653 Presence of artificial knee joint, bilateral; Z98.890 Other specified postprocedural states; Z94.0 Kidney transplant status; Z88.8 Allergy status to other drugs, medicaments and biological substances; Z88.1 Allergy status to other antibiotic agents; Z91.040 Latex allergy status; Z79.84 Long term (current) use of oral hypoglycemic drugs
CPT/HCPCS: 36415; 49324; 80053; 82962; 85025; A4314; A7015; J1644; J1956; J2405; J2704; J2710; J3010; J3490; J7030; J7040; 85007; J1815

== ENCOUNTER 2018-11-21 16:59 | Emergency (ER) | payer OTHER ==
[~2018-11-21] VITALS: Ht 170.2 cm; Wt 65.3 kg
[~2018-11-21 16:59] MED LIST changes: +ATOR40TA59 PO; +OMEP20TA8 PO
[2018-11-21 18:05] LABS: BASO # 0.1 x10^3/uL (0.0-0.2); BASO % 1 % (0-3); EOS # 0.6 x10^3/uL (0.0-0.7); EOS % 11 % (0-3); HEMATOCRIT 26.8 % (39.0-53.0); HEMOGLOBIN 9.1 g/dL (13.0-17.5); LYMPH # 1.2 x10^3/uL (1.0-4.8); LYMPH % 20 % (24-48); MEAN CORPUSCULAR HEMOGLOBIN 32 pg (25-35); MEAN CORPUSCULAR HGB CONC 34 g/dL (31-37); MEAN CORPUSCULAR VOLUME 93 fL (79-100); MONO # 0.5 x10^3/uL (0.0-1.1); MONO % 8 % (0-9); NEUT # 3.5 x10^3/uL (1.8-7.7); NEUT % 59 % (31-73); PLATELET COUNT 314 x10^3/uL (140-400); RED BLOOD COUNT 2.88 x10^6/uL (4.30-5.70); RED CELL DISTRIBUTION WIDTH 15.5 % (11.5-14.5); WHITE BLOOD COUNT 5.9 x10^3/uL (4.0-11.0)
[2018-11-21 18:15] LABS: PROTHROMBIN TIME PATIENT 16.2 SEC (11.7-14.0)
[2018-11-21 18:20] LABS: CALCIUM 8.8 mg/dL (8.5-10.1); CREATININE 5.1 mg/dL (0.7-1.3); POTASSIUM 4.3 mmol/L (3.5-5.1)
[2018-11-21 18:25] LABS: ALBUMIN 2.9 g/dL (3.4-5.0); ALBUMIN/GLOBULIN RATIO 0.5 (1.0-1.7); MAGNESIUM 1.6 mg/dL (1.8-2.4); TOTAL BILIRUBIN 0.3 mg/dL (0.2-1.0); TOTAL PROTEIN 8.8 g/dL (6.4-8.2)
[2018-11-21] MEDS ORDERED: fentaNYL PF VIAL 100 MCG/2 ML VIAL IV ONE (18:30)
--- NOTE | 2018-11-21 18:44 | PHYS DOC ---
Past Medical History Past Medical History: Diabetes-Type I, Hypertension, Migraines, Renal Failure, Other Additional Past Medical Histor: ACUTE RENAL FAILURE (VIRGINIA PETIT DO) Past Surgical History: Other Additional Past Surgical Histo: CHARLES KIDNEY TRANSPLANT,DIALYSIS CATH,DOUBLE BKA,HERNIA,L EYE IMPLANT (VIRGINIA PETIT DO) Alcohol Use: None Drug Use: None (VIRGINIA PEITT DO) Adult General Chief Complaint Chief Complaint: DIALYSIS PROBLEM HPI HPI 53-year-old male presents with renal disease presents with several week history of left hand paresthesias. Patient has history of AV shunt to that arm which was placed by Dr. Olguin (vascular surgery). Patient reports he currently is not using AV shunt but doing peritoneal dialysis. Patient reports he saw Dr. Olguin 3 weeks ago for same and was going to monitor. Reports today he was getting peritoneal dialysis education and his left index and middle fingers started to go cold and "black". The RN that was doing the education called Dr. Olguin's office and was instructed to have patient present to the ED for further evaluation. Reports pain 11/09. Denies fever/chills. Denies swelling. Denies trauma. (VIRGINIA PETIT DO) Review of Systems Review of Systems Constitutional: Denies fever or chills Eyes: Denies redness or eye pain HENT: Denies nasal congestion or sore throat Respiratory: Denies cough or shortness of breath Cardiovascular: Denies chest pain or palpitations GI: Denies abdominal pain, nausea, or vomiting : Denies dysuria or hematuria Musculoskeletal: Reports left hand numbness, pain, and decreased temperature Integument: Denies rash or skin lesions Neurologic: Denies headache, focal weakness or sensory changes Complete systems were reviewed and found to be within normal limits, except as documented in this note. (VIRGINIA PETIT DO) Current Medications Current Medications Current Medications Medications (Trade) Dose Ordered Sig/Penelope Start Time Stop Time Status Last Admin Dose Admin Fentanyl Citrate (Fentanyl 2ml Vial) 50 mcg 1X ONCE 11/21/18 18:30 11/21/18 18:31 DC 11/21/18 18:14 50 MCG (FRANCK ASHLEY MD) Allergies Allergies Allergies Coded Allergies Type Severity Reaction Last Updated Verified amoxicillin Allergy Intermediate Rash 11/04/18 Yes butorphanol Allergy Intermediate Itching 11/04/18 Yes dexamethasone Allergy Intermediate Itching 11/04/18 Yes latex Allergy Intermediate Rash 11/04/18 Yes promethazine Allergy Intermediate 11/04/18 Yes succinylcholine Allergy Intermediate 11/04/18 Yes (FRANCK ASHLEY MD) Physical Exam Physical Exam Constitutional: Well developed, well nourished, no acute distress, non-toxic appearance HENT: Normocephalic, atraumatic, oropharynx moist Eyes: Conjunctiva normal, no discharge Neck: Normal range of motion, no tenderness, supple Cardiovascular: Heart rate normal, regular rhythm Lungs & Thorax: Bilateral breath sounds clear to auscultation, no wheezing Abdomen: Soft, no tenderness Skin: Warm, dry, no erythema, no rash Extremities: Left hand warm to touch, no discoloration noted, AV fistula to left forearm noted with good thrill, BLE prosthetics noted Neurologic: Alert and oriented X 3, no focal deficits noted Psychologic: Affect normal, judgement normal (PETIT,VIRGINIA Ac DO) Current Patient Data Vital Signs Vital Signs Date Time Temp Pulse Resp B/P (MAP) Pulse Ox O2 Delivery O2 Flow Rate FiO2 11/21/18 20:00 86 16 163/76 (105) 99 Room Air 11/21/18 17:04 98.3 98.3 (FRANCK ASHLEY MD) Lab Values Laboratory Tests Test 11/21/18 17:38 White Blood Count 5.9 x10^3/uL (4.0-11.0) Red Blood Count 2.88 x10^6/uL (4.30-5.70) L Hemoglobin 9.1 g/dL (13.0-17.5) L Hematocrit 26.8 % (39.0-53.0) L Mean Corpuscular Volume 93 fL (79-100) Mean Corpuscular Hemoglobin 32 pg (25-35) Mean Corpuscular Hemoglobin Concent 34 g/dL (31-37) Red Cell Distribution Width 15.5 % (11.5-14.5) H Platelet Count 314 x10^3/uL (140-400) Neutrophils (%) (Auto) 59 % (31-73) Lymphocytes (%) (Auto) 20 % (24-48) L Monocytes (%) (Auto) 8 % (0-9) Eosinophils (%) (Auto) 11 % (0-3) H Basophils (%) (Auto) 1 % (0-3) Neutrophils # (Auto) 3.5 x10^3/uL (1.8-7.7) Lymphocytes # (Auto) 1.2 x10^3/uL (1.0-4.8) Monocytes # (Auto) 0.5 x10^3/uL (0.0-1.1) Eosinophils # (Auto) 0.6 x10^3/uL (0.0-0.7) Basophils # (Auto) 0.1 x10^3/uL (0.0-0.2) Prothrombin Time 16.2 SEC (11.7-14.0) H Prothrombin Time INR 1.3 (0.8-1.1) H Activated Partial Thromboplast Time 34 SEC (24-38) Sodium Level 139 mmol/L (136-145) Potassium Level 4.3 mmol/L (3.5-5.1) Chloride Level 101 mmol/L (98-107) Carbon Dioxide Level 29 mmol/L (21-32) Anion Gap 9 (6-14) Blood Urea Nitrogen 42 mg/dL (8-26) H Creatinine 5.1 mg/dL (0.7-1.3) H Estimated GFR (Cockcroft-Gault) 12.0 BUN/Creatinine Ratio 8 (6-20) Glucose Level 77 mg/dL (70-99) Calcium Level 8.8 mg/dL (8.5-10.1) Magnesium Level 1.6 mg/dL (1.8-2.4) L Total Bilirubin 0.3 mg/dL (0.2-1.0) Aspartate Amino Transferase (AST) 12 U/L (15-37) L Alanine Aminotransferase (ALT) 7 U/L (16-63) L Alkaline Phosphatase 217 U/L (46-116) H Total Protein 8.8 g/dL (6.4-8.2) H Albumin 2.9 g/dL (3.4-5.0) L Albumin/Globulin Ratio 0.5 (1.0-1.7) L Laboratory Tests 11/21/18 17:38 Laboratory Tests 11/21/18 17:38 (FRANCK ASHLEY MD) EKG EKG [] (VIRGINIA PETIT DO) Radiology/Procedures Radiology/Procedures [] (VIRGINIA PETIT DO) Radiology/Procedures [facility] [address] [place] [address] IMAGING REPORT Signed PATIENT: ELVIN MORFIN ACCOUNT: [id number] : 1965 LOCATION: ER AGE: 53 SEX: M EXAM STATUS: REG ER ORD. PHYSICIAN: VIRGINIA PETIT DO REASON: left hand parasthesias, AV fistula PROCEDURE: UPPER EXT ARTERIAL LEFT Left forearm arterial duplex study 11/21/2018 CLINICAL HISTORY: Left hand paresthesias. History of AV fistula. TECHNIQUE: Using a combination of real-time ultrasound imaging and color-flow and pulse Doppler imaging techniques, duplex evaluation of the major arterial structures of the left forearm was performed. Multiple images were obtained. FINDINGS: The visualized left brachial artery and the left radial and ulnar arteries are within normal limits. A patent AV fistula seen within the left forearm. The peak systolic velocity within the arterial end of the anastomosis is 509 cm/s. The peak systolic velocity within the mid aspect of the fistula is 168 cm/s. The peak systolic velocity at the venous anastomosis is 282 cm/s. IMPRESSION: Patent AV fistula within the left forearm. No acute abnormality is seen. Electronically signed by: Pablo Massey MD (11/21/2018 7:38 PM) [facility] [id number] DICTATED and SIGNED BY: PABLO MASSEY MD DATE: 11/21/181937 (FRANCK ASHLEY MD) Course & Med Decision Making Course & Med Decision Making Patient presents with left hand numbness, change in color and temperature. Hx of AV fistula to that limb. Pain addressed. Labs obtained and pending. Arterial US study ordered. Sign out given to Dr. Ashley for further evaluation and final disposition. Discussed current findings and plan with patient and family, who acknowledge understanding and agreement. (VIRGINIA PETIT DO) Course & Med Decision Making Patient care transferred at 1800 for follow-up the results of arterial ultrasound of left upper extremities. Patient was evaluated and stated numbness and change of color of finger was resolved. Ultrasound was pending. Arterial ultrasound did not show occlusion of AV fistula and patient informed about the test results. Patient questioning why he had chronic intermittent numbness of his hand and he was told that he needs to follow up with his vascular surgeon for evaluation of chronic problem and at this time he does not have AV fistula occlusion. Patient and his completely were very rude and impolite while I gave them the results of ultrasound and discharge instructions and were anxious to go home. (FRANCK ASHLEY MD) Dragon Disclaimer Dragon Disclaimer This electronic medical record was generated, in whole or in part, using a voice recognition dictation system. (VIRGINIA PETIT DO) Departure Departure Impression: Primary Impression: Hand paresthesia Disposition: HOME, SELF-CARE (at 2017) Condition: IMPROVED Referrals: NON,STAFF (PCP) Patient Instructions: AV Fistula, Care After, Paresthesia Additional Instructions: Follow-up with your primary care physician in 3-5 days Return to ER if not getting better Problem Qualifiers Primary Impression: Hand paresthesia Laterality: left Qualified Codes: R20.2 - Paresthesia of skin VIRGINIA PETIT DO Nov 21, 2018 18:44 FRANCK ASHLEY MD Nov 21, 2018 20:18
--- NOTE | 2018-11-21 19:41 | RAD ---
Left forearm arterial duplex study 11/21/2018 CLINICAL HISTORY: Left hand paresthesias. History of AV fistula. TECHNIQUE: Using a combination of real-time ultrasound imaging and color-flow and pulse Doppler imaging techniques, duplex evaluation of the major arterial structures of the left forearm was performed. Multiple images were obtained. FINDINGS: The visualized left brachial artery and the left radial and ulnar arteries are within normal limits. A patent AV fistula seen within the left forearm. The peak systolic velocity within the arterial end of the anastomosis is 509 cm/s. The peak systolic velocity within the mid aspect of the fistula is 168 cm/s. The peak systolic velocity at the venous anastomosis is 282 cm/s. IMPRESSION: Patent AV fistula within the left forearm. No acute abnormality is seen. Electronically signed by: Pablo Massey MD (11/21/2018 7:38 PM) [facility] [id number]
[2018-11-21 20:00] VITALS: BP 163/76
== END 2018-11-21 20:20 | disposition home or self-care (01) ==
LOC: ER 16:59
DX: R20.2 Paresthesia of skin (principal); E10.22 Type 1 diabetes mellitus with diabetic chronic kidney disease; I12.9 Hypertensive chronic kidney disease with stage 1 through stage 4 chronic kidney disease, or unspecified chronic kidney disease; N18.9 Chronic kidney disease, unspecified; Z99.2 Dependence on renal dialysis; Z94.0 Kidney transplant status; Z88.1 Allergy status to other antibiotic agents; Z91.040 Latex allergy status; Z88.8 Allergy status to other drugs, medicaments and biological substances
CPT/HCPCS: 36415; 80053; 83735; 85025; 85610; 85730; 93931; 96374; 99285; J3010

== ENCOUNTER → 2019-01-03 | Outpatient (CLI) | payer OTHER ==
[2018-12-12 15:57] VITALS: BP 176/72
[~2019-01-03] MED LIST changes: +HYDR-3164 PO; +INSU100V8 SQ; +PREG50CA PO; +TACR1CAP2 PO; -VITS56.7 TP; +VITS56.72 TP
[2019-01-03 10:31] LABS: BASO # 0.1 x10^3/uL (0.0-0.2); BASO % 1 % (0-3); EOS % 19 % (0-3); HEMATOCRIT 30.2 % (39.0-53.0); HEMOGLOBIN 10.1 g/dL (13.0-17.5); LYMPH # 0.9 x10^3/uL (1.0-4.8); LYMPH % 16 % (24-48); MEAN CORPUSCULAR HEMOGLOBIN 31 pg (25-35); MEAN CORPUSCULAR HGB CONC 34 g/dL (31-37); MEAN CORPUSCULAR VOLUME 93 fL (79-100); MONO # 0.5 x10^3/uL (0.0-1.1); MONO % 9 % (0-9); NEUT # 3.1 x10^3/uL (1.8-7.7); NEUT % 56 % (31-73); PLATELET COUNT 252 x10^3/uL (140-400); RED BLOOD COUNT 3.25 x10^6/uL (4.30-5.70); WHITE BLOOD COUNT 5.6 x10^3/uL (4.0-11.0)
[2019-01-03 10:43] LABS: CALCIUM 9.9 mg/dL (8.5-10.1); GFR 8.3; POTASSIUM 4.1 mmol/L (3.5-5.1)
== END | disposition home or self-care (01) ==
LOC: SPEC 10:07
PROVIDERS: ATTEND Internal Medicine Cardiovascular Disease
DX: Z01.812 Encounter for preprocedural laboratory examination (principal)
CPT/HCPCS: 36415; 80048; 85025

== ENCOUNTER 2019-07-10 20:40 | Emergency (ER) | payer OTHER ==
[~2019-07-10] VITALS: Ht 170.2 cm; Wt 66.0 kg
[~2019-07-10 20:40] MED LIST changes: +METO5TAB PO
--- NOTE | 2019-07-10 20:52 | PHYS DOC ---
Past Medical History Past Medical History: Diabetes-Type I, Hypertension, Migraines, Pneumonia, Renal Failure, Other Additional Past Medical Histor: ACUTE RENAL FAILURE on dialysis Past Surgical History: Other Additional Past Surgical Histo: CHARLES KIDNEY TRANSPLANT,DIALYSIS CATH,DOUBLE BKA,HERNIA,L EYE IMPLANT Smoking Status: Never Smoker Alcohol Use: None Drug Use: None General Adult EDM: Chief Complaint: Hypoglycemia HPI: HPI: Patient is a 54 year old male with past medical history significant for end- stage renal disease on dialysis, hypertension, diabetes. He is brought to the ER by EMS secondary to hypoglycemia; EMS was called by family because the patient was unresponsive. On scene the patient's glucose was 22 and he was given a dose of glucagon which increased his glucose to 44 and the patient became alert and responsive. He reported that he took insulin but did not eat in time. He reports now that he is feeling normal. Denies chest pain or shortness of breath or recent sickness. His glucose in the ER is currently 72. Review of Systems: Review of Systems: All other systems negative except as documented in HPI. Heart Score: Risk Factors: Risk Factors: DM, Current or recent (<one month) smoker, HTN, HLP, family history of CAD, obesity. Risk Scores: Score 0 - 3: 2.5% MACE over next 6 weeks - Discharge Home Score 4 - 6: 20.3% MACE over next 6 weeks - Admit for Clinical Observation Score 7 - 10: 72.7% MACE over next 6 weeks - Early Invasive Strategies Allergies: Allergies: Allergies Coded Allergies Type Severity Reaction Last Updated Verified amoxicillin Allergy Intermediate Rash 11/04/18 Yes butorphanol Allergy Intermediate Itching 02/14/19 Yes dexamethasone Allergy Intermediate Itching 11/04/18 Yes latex Allergy Intermediate Rash 11/04/18 Yes pregabalin Allergy Intermediate 04/27/19 Yes promethazine Allergy Intermediate 11/04/18 Yes succinylcholine Allergy Intermediate 11/04/18 Yes Physical Exam: PE: Constitutional: Well developed, well nourished, slightly drowsy HENT: Normocephalic, atraumatic, bilateral external ears normal, oropharynx moist, no oral exudates, nose normal. [] Eyes: PERRLA, EOMI, conjunctiva normal, no discharge. [] Neck: Normal range of motion, no tenderness, supple, no stridor. [] Cardiovascular:Heart rate regular rhythm, no murmur [] Lungs & Thorax: Bilateral breath sounds clear to auscultation [] Abdomen: Bowel sounds normal, soft, no tenderness, no masses, no pulsatile masses. [] Skin: Warm, dry, no erythema, no rash. [] Back: No tenderness, no CVA tenderness. [] Extremities: No tenderness or deformity Neurologic: Alert and oriented X 3, normal motor function, normal sensory function, no focal deficits noted. [] Psychologic: Affect normal, judgement normal, mood normal. [] Current Patient Data: Labs: Laboratory Tests Test 07/10/19 20:47 Glucose (Fingerstick) 73 mg/dL (70-99) EKG: EKG: [] Radiology/Procedures: Radiology/Procedures: [] Course & Med Decision Making: Course & Med Decision Making 2050: Patient seen for hyperglycemia. Glucose is currently 72 and the patient is awake. Will allow him to eat and give orange juice and recheck glucose in 30 minutes. Check basic labs. Hold off on IV fluids as the patient is dialysis patient and recently dialyzed this morning 2128: Patient's glucose is 131. His labs are normal range for the patient. He has finished his dinner and is stable for discharge. [employer] Disclaimer: [employer] Disclaimer: This electronic medical record was generated, in whole or in part, using a voice recognition dictation system. Departure Departure Impression: Primary Impression: Hypoglycemia Disposition: 01 HOME, SELF-CARE Condition: STABLE Referrals: UNKNOWN PCP NAME (PCP) Patient Instructions: Hypoglycemia (Low Blood Sugar) PAULA PARKER DO Jul 10, 2019 20:52
[2019-07-10 21:08] LABS: BASO # 0.1 x10^3/uL (0.0-0.2); BASO % 2 % (0-3); EOS # 0.3 x10^3/uL (0.0-0.7); EOS % 9 % (0-3); HEMOGLOBIN 11.1 g/dL (13.0-17.5); LYMPH # 0.7 x10^3/uL (1.0-4.8); LYMPH % 18 % (24-48); MEAN CORPUSCULAR HEMOGLOBIN 32 pg (25-35); MEAN CORPUSCULAR HGB CONC 34 g/dL (31-37); MEAN CORPUSCULAR VOLUME 96 fL (79-100); MONO # 0.3 x10^3/uL (0.0-1.1); MONO % 9 % (0-9); NEUT # 2.3 x10^3/uL (1.8-7.7); NEUT % 62 % (31-73); PLATELET COUNT 194 x10^3/uL (140-400); RED BLOOD COUNT 3.45 x10^6/uL (4.30-5.70); RED CELL DISTRIBUTION WIDTH 15.6 % (11.5-14.5); WHITE BLOOD COUNT 3.7 x10^3/uL (4.0-11.0)
[2019-07-10 21:20] LABS: CALCIUM 9.2 mg/dL (8.5-10.1); CREATININE 4.2 mg/dL (0.7-1.3); POTASSIUM 3.6 mmol/L (3.5-5.1)
[2019-07-10 21:30] VITALS: BP 202/99
== END 2019-07-10 21:40 | disposition home or self-care (01) ==
LOC: ER 20:40
DX: E10.649 Type 1 diabetes mellitus with hypoglycemia without coma (principal); E10.22 Type 1 diabetes mellitus with diabetic chronic kidney disease; I12.0 Hypertensive chronic kidney disease with stage 5 chronic kidney disease or end stage renal disease; N18.6 End stage renal disease; Z99.2 Dependence on renal dialysis; Z94.0 Kidney transplant status; Z79.4 Long term (current) use of insulin; G43.909 Migraine, unspecified, not intractable, without status migrainosus; Z88.1 Allergy status to other antibiotic agents; Z88.8 Allergy status to other drugs, medicaments and biological substances; Z91.040 Latex allergy status
CPT/HCPCS: 36415; 80048; 82962; 85025; 99283

== ENCOUNTER → 2019-09-16 | Outpatient (CLI) | payer OTHER ==
[2019-08-18 15:36] VITALS: BP 140/58
[~2019-09-16] MED LIST changes: +ACET325T9 PO; +ASPI-612 PO; +DOXY100T PO; +LACT1CAP19 PO; +LISI-130 PO; -PREG50CA PO; +PREG50CA91 PO; -TACR1CAP4 PO; +TACR1CAP5 PO; +ZOLPIDEM 5 MG TABLET. PO ONE
--- NOTE | 2019-09-17 12:17 | SLEEP ---
DATE OF STUDY: 09/16/2019 SLEEP STUDY ATTENDING PHYSICIAN: Laurel Virgen MD The patient is a 54-year-old who weighs 141 pounds with a BMI of 22. The patient's [place] score was 12. The patient underwent split night study performed at [facility]. During the night study, the patient spent 417 minutes in bed and slept for 334 minutes with a sleep efficiency of 80%. Sleep latency was 67 minutes with an absent REM sleep. Sleep architecture showed increased stage 1 and stage 2 sleep, increased slow wave and absent REM sleep. During the initial diagnostic portion of the study, the patient slept for 83 minutes. The patient had 29 hypopneas, 1 mixed apnea, no obstructive or central apneas. The patient's AHI was 22 per hour with a supine AHI of 22 per hour. REM sleep was not observed. EKG monitoring revealed a mean heart rate of 85 beats per minute, no sustained arrhythmias observed. PLMS were seen at index of 5 per hour and 1 per hour caused EEG arousals. Nocturnal oximetry study revealed a mean oxygen saturation of 94% with lowest of 88%. A 4% time oxygen saturation remained between 80% and 89%. The patient met the criteria for CPAP initiation. It was started at 5 cm water and titrated up to 14 cm water. At the final pressure, the patient slept for 62 minutes. The patient had supine sleep throughout. No REM sleep observed. The patient's AHI was reduced to 2 per hour and oxygen saturation remained above 90%. The patient used medium size nasal pillows. IMPRESSION: 1. Moderate obstructive sleep apnea, at an AHI of 22 per hour. Absence of rapid eye movement sleep can underestimate the severity of sleep apnea. 2. No clinically significant nocturnal hypoxia. 3. No clinically significant periodic limb movements. RECOMMENDATIONS: 1. CPAP at 14 cm water, completely eliminated the patient's sleep apnea and should be used on a nightly basis. 2. Follow up in 4-6 weeks to assess compliance with CPAP and to document clinical improvement. 3. Avoid [employer] depressants. 4. Cautioned regarding driving until symptoms of sleep apnea resolve with the use of CPAP. KEENAN CORTEZ MD DR: ИВАН/silviano JOB#: [id number] / [id number] LAUREL Brasher MD
== END ==
LOC: SLPLAB 19:13
PROVIDERS: ATTEND Internal Medicine Pulmonary Disease
DX: G47.33 Obstructive sleep apnea (adult) (pediatric) (principal); I27.20 Pulmonary hypertension, unspecified; R06.83 Snoring
CPT/HCPCS: 95810

== ENCOUNTER 2019-09-20 10:10 | Emergency (ER) | payer OTHER ==
[~2019-09-20] VITALS: Ht 170.2 cm; Wt 61.3 kg
[~2019-09-20 10:10] MED LIST changes: -ZOLPIDEM 5 MG TABLET. PO ONE
[2019-09-20] MEDS ORDERED: DEXTROSE 50% 25 GM / 50ML DISP.SYRIN. IV ONE ×2 (10:18→11:00)
[2019-09-20 10:33] LABS: BASO # 0.1 x10^3/uL (0.0-0.2); BASO % 1 % (0-3); EOS # 0.5 x10^3/uL (0.0-0.7); EOS % 13 % (0-3); HEMATOCRIT 30.1 % (39.0-53.0); HEMOGLOBIN 10.3 g/dL (13.0-17.5); LYMPH # 0.6 x10^3/uL (1.0-4.8); LYMPH % 16 % (24-48); MEAN CORPUSCULAR HEMOGLOBIN 31 pg (25-35); MEAN CORPUSCULAR HGB CONC 34 g/dL (31-37); MEAN CORPUSCULAR VOLUME 92 fL (79-100); MONO # 0.3 x10^3/uL (0.0-1.1); MONO % 8 % (0-9); NEUT # 2.4 x10^3/uL (1.8-7.7); NEUT % 62 % (31-73); PLATELET COUNT 232 x10^3/uL (140-400); RED BLOOD COUNT 3.28 x10^6/uL (4.30-5.70); RED CELL DISTRIBUTION WIDTH 16.3 % (11.5-14.5); WHITE BLOOD COUNT 3.9 x10^3/uL (4.0-11.0)
[2019-09-20 10:48] LABS: ALBUMIN 3.4 g/dL (3.4-5.0); ALBUMIN/GLOBULIN RATIO 0.6 (1.0-1.7); CALCIUM 8.8 mg/dL (8.5-10.1); CREATININE 2.8 mg/dL (0.7-1.3); GFR 23.9; TOTAL BILIRUBIN 0.7 mg/dL (0.2-1.0); TOTAL PROTEIN 9.3 g/dL (6.4-8.2)
--- NOTE | 2019-09-20 12:20 | PHYS DOC ---
Past Medical History Past Medical History: Diabetes-Type I, Hypertension, Migraines, Pneumonia, Renal Failure, Other Additional Past Medical Histor: ACUTE RENAL FAILURE on dialysis, hypoglycemia Past Surgical History: Other Additional Past Surgical Histo: CHARLES KIDNEY TRANSPLANT,DIALYSIS CATH,DOUBLE B KA,HERNIA,L EYE IMPLANT Smoking Status: Never Smoker Alcohol Use: None Drug Use: None General Adult EDM: Chief Complaint: HYPOGLYCEMIA HPI: HPI: Patient is a 54-year-old male dialysis patient with frequent hypoglycemic spells who completed his dialysis this morning and then developed low blood sugar. Apparently, his blood sugar was in the 30s at dialysis with some altered mental status. They gave him 2 packets of glucose without much relief. EMS was called they gave him more glucose but he did not really respond well. Patient states this is very typical for him he normally can eat something and bring his blood sugar back up. He states he did not eat this morning but prior to dialysis. [] Review of Systems: Review of Systems: Constitutional: Denies fever or chills. [] Eyes: Denies change in visual acuity. [] HENT: Denies nasal congestion or sore throat. [] Respiratory: Denies cough or shortness of breath. [] Cardiovascular: Denies chest pain or edema. [] GI: Denies abdominal pain, nausea, vomiting, bloody stools or diarrhea. [] : Denies dysuria. [] Musculoskeletal: Denies back pain or joint pain. [] Integument: Denies rash. [] Neurologic: Denies headache, focal weakness or sensory changes. [] Endocrine: Denies polyuria or polydipsia. [] Lymphatic: Denies swollen glands. [] Psychiatric: Denies depression or anxiety. [] Heart Score: Risk Factors: Risk Factors: DM, Current or recent (<one month) smoker, HTN, HLP, family history of CAD, obesity. Risk Scores: Score 0 - 3: 2.5% MACE over next 6 weeks - Discharge Home Score 4 - 6: 20.3% MACE over next 6 weeks - Admit for Clinical Observation Score 7 - 10: 72.7% MACE over next 6 weeks - Early Invasive Strategies Current Medications: Current Medications Medications (Trade) Dose Ordered Sig/Penelope Start Time Stop Time Status Last Admin Dose Admin Dextrose (Dextrose 50%-Water Syringe) 25 gm 1X ONCE 09/20/19 11:00 09/20/19 11:01 DC 09/20/19 10:19 25 GM Allergies: Allergies: Allergies Coded Allergies Type Severity Reaction Last Updated Verified morphine Allergy Severe Nausea and Vomiting 07/19/19 Yes promethazine Allergy Severe sob, "throat swelling" 09/20/19 Yes amoxicillin Allergy Intermediate Rash 11/04/18 Yes butorphanol Allergy Intermediate Itching 02/14/19 Yes dexamethasone Allergy Intermediate Itching 11/04/18 Yes latex Allergy Intermediate Rash 11/04/18 Yes pregabalin Allergy Intermediate 04/27/19 Yes succinylcholine Allergy Intermediate 11/04/18 Yes Physical Exam: PE: Constitutional: Well developed, well nourished, no acute distress, non-toxic appearance. [] HENT: Normocephalic, atraumatic, bilateral external ears normal, oropharynx moist, no oral exudates, nose normal. [] Eyes: PERRLA, EOMI, conjunctiva normal, no discharge. [] Neck: Normal range of motion, no tenderness, supple, no stridor. [] Cardiovascular:Heart rate regular rhythm, no murmur [] Lungs & Thorax: Bilateral breath sounds clear to auscultation [] Abdomen: Bowel sounds normal, soft, no tenderness, no masses, no pulsatile masses. [] Skin: Warm, dry, no erythema, no rash. [] Back: No tenderness, no CVA tenderness. [] Extremities: No tenderness, no cyanosis, no clubbing, ROM intact, no edema. [] Neurologic: Alert and oriented X 3, normal motor function, normal sensory function, no focal deficits noted. [] Psychologic: Affect normal, judgement normal, mood normal. [] Current Patient Data: Labs: Laboratory Tests Test 09/20/19 10:17 09/20/19 10:39 White Blood Count 3.9 x10^3/uL (4.0-11.0) L Red Blood Count 3.28 x10^6/uL (4.30-5.70) L Hemoglobin 10.3 g/dL (13.0-17.5) L Hematocrit 30.1 % (39.0-53.0) L Mean Corpuscular Volume 92 fL (79-100) Mean Corpuscular Hemoglobin 31 pg (25-35) Mean Corpuscular Hemoglobin Concent 34 g/dL (31-37) Red Cell Distribution Width 16.3 % (11.5-14.5) H Platelet Count 232 x10^3/uL (140-400) Neutrophils (%) (Auto) 62 % (31-73) Lymphocytes (%) (Auto) 16 % (24-48) L Monocytes (%) (Auto) 8 % (0-9) Eosinophils (%) (Auto) 13 % (0-3) H Basophils (%) (Auto) 1 % (0-3) Neutrophils # (Auto) 2.4 x10^3/uL (1.8-7.7) Lymphocytes # (Auto) 0.6 x10^3/uL (1.0-4.8) L Monocytes # (Auto) 0.3 x10^3/uL (0.0-1.1) Eosinophils # (Auto) 0.5 x10^3/uL (0.0-0.7) Basophils # (Auto) 0.1 x10^3/uL (0.0-0.2) Sodium Level 136 mmol/L (136-145) Potassium Level 3.0 mmol/L (3.5-5.1) L Chloride Level 96 mmol/L (98-107) L Carbon Dioxide Level 33 mmol/L (21-32) H Anion Gap 7 (6-14) Blood Urea Nitrogen 13 mg/dL (8-26) Creatinine 2.8 mg/dL (0.7-1.3) H Estimated GFR (Cockcroft-Gault) 23.9 BUN/Creatinine Ratio 5 (6-20) L Glucose Level 43 mg/dL (70-99) L Glucose (Fingerstick) 33 mg/dL (70-99) *L 168 mg/dL (70-99) H Calcium Level 8.8 mg/dL (8.5-10.1) Total Bilirubin 0.7 mg/dL (0.2-1.0) Aspartate Amino Transferase (AST) 16 U/L (15-37) Alanine Aminotransferase (ALT) 8 U/L (16-63) L Alkaline Phosphatase 259 U/L (46-116) H Total Protein 9.3 g/dL (6.4-8.2) H Albumin 3.4 g/dL (3.4-5.0) Albumin/Globulin Ratio 0.6 (1.0-1.7) L Laboratory Tests 09/20/19 10:17 Laboratory Tests 09/20/19 10:17 Vital Signs: Vital Signs Date Time Temp Pulse Resp B/P (MAP) Pulse Ox O2 Delivery O2 Flow Rate FiO2 09/20/19 10:10 97.9 20 216/98 (137) 88 Room Air 97.9 EKG: EKG: [] Radiology/Procedures: Radiology/Procedures: [] Course & Med Decision Making: Course & Med Decision Making Pertinent Labs and Imaging studies reviewed. (See chart for details) [ED course: Evaluation reveals a 54-year-old male whose blood sugar was in the 40s on arrival. He was given 1 amp of D50 and a breakfast tray his blood sugar went up into the 140s he felt much better states he wants to go home. I believe he is safe to do so. He assures me that he will eat throughout the day today and make sure he has someone around to keep an eye on him.] Dragon Disclaimer: Dragon Disclaimer: This electronic medical record was generated, in whole or in part, using a voice recognition dictation system. Departure Departure Impression: Primary Impression: Hypoglycemia Disposition: 01 HOME, SELF-CARE Condition: IMPROVED Referrals: FLAVIA FERNANDES MD (PCP) Patient Instructions: Hypoglycemia (Low Blood Sugar) Additional Instructions: Return to the emergency department with any new or concerning symptoms Justicifation of Admission Dx: Justifications for Admission: Justification of Admission Dx: MARIA ELENA Bruno DO Sep 20, 2019 12:20
[2019-09-20 13:00] VITALS: BP 190/85
--- NOTE | 2019-09-22 10:21 | EKG ---
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
== END 2019-09-20 13:02 | disposition home or self-care (01) ==
LOC: ER 10:10
DX: E10.649 Type 1 diabetes mellitus with hypoglycemia without coma (principal); E10.22 Type 1 diabetes mellitus with diabetic chronic kidney disease; I12.9 Hypertensive chronic kidney disease with stage 1 through stage 4 chronic kidney disease, or unspecified chronic kidney disease; N18.9 Chronic kidney disease, unspecified; R41.82 Altered mental status, unspecified; Z99.2 Dependence on renal dialysis; Z94.0 Kidney transplant status; Z88.1 Allergy status to other antibiotic agents; Z88.5 Allergy status to narcotic agent; Z91.040 Latex allergy status; Z88.8 Allergy status to other drugs, medicaments and biological substances
CPT/HCPCS: 36415; 80053; 82962; 85025; 93005; 96374; 99284; J7042

== ENCOUNTER 2019-09-28 23:19 | Emergency (ER) | payer OTHER ==
[~2019-09-28] VITALS: Ht 167.6 cm; Wt 65.4 kg
[~2019-09-28 23:19] MED LIST changes: -ASPI-612 PO; +ASPI-886 PO
[2019-09-28 23:47] LABS: BASO # 0.1 x10^3/uL (0.0-0.2); BASO % 2 % (0-3); EOS # 0.6 x10^3/uL (0.0-0.7); EOS % 12 % (0-3); HEMATOCRIT 28.9 % (39.0-53.0); HEMOGLOBIN 9.6 g/dL (13.0-17.5); LYMPH % 20 % (24-48); MEAN CORPUSCULAR HEMOGLOBIN 31 pg (25-35); MEAN CORPUSCULAR HGB CONC 33 g/dL (31-37); MEAN CORPUSCULAR VOLUME 93 fL (79-100); MONO # 0.4 x10^3/uL (0.0-1.1); MONO % 8 % (0-9); NEUT % 59 % (31-73); PLATELET COUNT 256 x10^3/uL (140-400); RED BLOOD COUNT 3.11 x10^6/uL (4.30-5.70); RED CELL DISTRIBUTION WIDTH 17.2 % (11.5-14.5); WHITE BLOOD COUNT 5.1 x10^3/uL (4.0-11.0)
--- NOTE | 2019-09-28 23:52 | PHYS DOC ---
Past Medical History Past Medical History: Diabetes-Type I, Hypertension, Migraines, Pneumonia, Renal Failure, Other Additional Past Medical Histor: ACUTE RENAL FAILURE on dialysis, hypoglycemia Past Surgical History: Other Additional Past Surgical Histo: CHARLES KIDNEY TRANSPLANT,DIALYSIS CATH,DOUBLE BKA,HERNIA,L EYE IMPLANT Smoking Status: Never Smoker Alcohol Use: None Drug Use: None General Adult HPI: HPI: Patient is a 54-year-old male past medical history end-stage renal disease diabetes hypertension presents for evaluation of altered mental status. EMS states they are very familiar with patient. They state similar symptoms on multiple occasion with hypoglycemia. Patient EMS blood sugar was in the 90s. They state patient was confused and stating he is short of breath. On arrival patient lethargic but answers all questions appropriate. He was A/O x4. Patient was observed with complete resolution of lethargy. Patient states when called EMS he drank some sweet tea. Patient states symptoms consisted with hypoglycemic episodes. Patient states at dinnertime he took his normal 4 units insulin. Patient currently denies any headache or chest pain. Patient states he did feel some shortness of breath with his hypoglycemic episode. States states shortness of breath continues but has greatly improved. He denies any cough or fever. Review of Systems: Review of Systems: Constitutional: Denies fever or chills. [] Eyes: Denies change in visual acuity. [] HENT: Denies nasal congestion or sore throat. [] Respiratory: Denies cough or shortness of breath. [] Cardiovascular: Denies chest pain or edema. [] GI: Denies abdominal pain, nausea, vomiting, bloody stools or diarrhea. [] : Denies dysuria. [] Musculoskeletal: Denies back pain or joint pain. [] Integument: Denies rash. [] Neurologic: Denies headache, focal weakness or sensory changes. [] Endocrine: Denies polyuria or polydipsia. [] Lymphatic: Denies swollen glands. [] Psychiatric: Denies depression or anxiety. [] Heart Score: Risk Factors: Risk Factors: DM, Current or recent (<one month) smoker, HTN, HLP, family history of CAD, obesity. Risk Scores: Score 0 - 3: 2.5% MACE over next 6 weeks - Discharge Home Score 4 - 6: 20.3% MACE over next 6 weeks - Admit for Clinical Observation Score 7 - 10: 72.7% MACE over next 6 weeks - Early Invasive Strategies Allergies: Allergies: Allergies Coded Allergies Type Severity Reaction Last Updated Verified morphine Allergy Severe Nausea and Vomiting 07/19/19 Yes promethazine Allergy Severe sob, "throat swelling" 09/20/19 Yes amoxicillin Allergy Intermediate Rash 11/04/18 Yes butorphanol Allergy Intermediate Itching 02/14/19 Yes dexamethasone Allergy Intermediate Itching 11/04/18 Yes latex Allergy Intermediate Rash 11/04/18 Yes pregabalin Allergy Intermediate 04/27/19 Yes succinylcholine Allergy Intermediate 11/04/18 Yes Physical Exam: PE: Constitutional: Well developed, well nourished, no acute distress, non-toxic appearance. [] HENT: Normocephalic, atraumatic, bilateral external ears normal, oropharynx moist, no oral exudates, nose normal. [] Eyes: PERRLA, EOMI, conjunctiva normal, no discharge. [] Neck: Normal range of motion, no tenderness, supple, no stridor. [] Cardiovascular:Heart rate regular rhythm, no murmur [] Lungs & Thorax: no respiratory distress Abdomen: Bowel sounds normal, soft, no tenderness, no masses, no pulsatile masses. [] Skin: Warm, dry, no erythema, no rash. [] Back: No tenderness, no CVA tenderness. [] Extremities: No tenderness, no cyanosis, no clubbing, ROM intact, no edema. [] Neurologic: Alert and oriented X 3, normal motor function, normal sensory function, no focal deficits noted. [] Psychologic: Affect normal, judgement normal, mood normal. [] Current Patient Data: Labs: Laboratory Tests Test 09/28/19 23:33 Glucose (Fingerstick) 73 mg/dL (70-99) EKG: EKG: [] EKG at 2325 heart rate 106 sinus tachycardia left axis deviation no STEMI Radiology/Procedures: Radiology/Procedures: [] Impression: AP view was taken of the chest. Right dialysis catheter extends to the right atrium without change. There is diffuse lung disease from pulmonary edema or a diffuse infiltrates. There's been worsening compared to the studies from July. IMPRESSION: 1. Bilateral diffuse infiltrates or pulmonary edema. Course & Med Decision Making: Course & Med Decision Making Pertinent Labs and Imaging studies reviewed. (See chart for details) []Patient labs reviewed BNP 30,000 with Last BNP 28,000 Chest Xray edema vs infiltrates Patient had dialysis yesterday. Initially patient stated he had some shortness of breath. Re-evaluation @ 0100hrs patient declines SOB. Discussed xray finds with patient. States he feels better and would like to go home. Will Rx zithromax. Advised not to miss dialysis on sunday. Advised to return to ER for follow up with PCP in shortness of breath returns. Mariaelena Disclaimer: Mariaelena Disclaimer: This electronic medical record was generated, in whole or in part, using a voice recognition dictation system. Departure Departure Impression: Primary Impression: Altered mental state Additional Impression: Hypoglycemia Disposition: HOME, SELF-CARE Referrals: FLAVIA FERNANDES MD (PCP) Scripts Azithromycin (ZITHROMAX) 250 Mg Tablet 1 PKG PO UD, #6 TAB Prov: TERRY MUNIZ DO 09/29/19 Justicifation of Admission Dx: Justifications for Admission: Justification of Admission Dx: N/A TERRY MUNIZ I DO Sep 28, 2019 23:52
[2019-09-28 23:56] LABS: CALCIUM 9.3 mg/dL (8.5-10.1); GFR 8.3; POTASSIUM 3.9 mmol/L (3.5-5.1)
[2019-09-29 00:02] LABS: ALBUMIN 3.5 g/dL (3.4-5.0); ALBUMIN/GLOBULIN RATIO 0.6 (1.0-1.7); TOTAL BILIRUBIN 0.6 mg/dL (0.2-1.0); TOTAL PROTEIN 9.3 g/dL (6.4-8.2)
--- NOTE | 2019-09-29 00:05 | RAD ---
CT brain without contrast. HISTORY: Altered mental status CT scan of brain was done without contrast. Sinuses are clear. There is no mass or shift of the midline. Ventricles are normal in size. An acute CVA is not identified. There is no intracranial hemorrhage or subdural hematoma. There is mild diffuse atrophy. IMPRESSION: 1. Mild atrophy. 2. No intracranial hemorrhage or acute finding noted. PQRS Compliance Statement: One or more of the following individualized dose reduction techniques were utilized for this examination: 1. Automated exposure control 2. Adjustment of the mA and/or kV according to patient size 3. Use of iterative reconstruction technique Electronically signed by: Ney Becker MD (09/29/2019 12:02 AM) [id number]
--- NOTE | 2019-09-29 00:23 | RAD ---
AP chest. HISTORY: Short of breath AP view was taken of the chest. Right dialysis catheter extends to the right atrium without change. There is diffuse lung disease from pulmonary edema or a diffuse infiltrates. There's been worsening compared to the studies from July. IMPRESSION: 1. Bilateral diffuse infiltrates or pulmonary edema. Electronically signed by: Ney Becker MD (09/29/2019 12:20 AM) [id number]
[2019-09-29] MEDS ORDERED: AZIT250T PO (01:17)
[2019-09-29 01:20] VITALS: BP 163/70
--- NOTE | 2019-09-29 11:42 | EKG ---
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
[2019-12-19] MEDS ORDERED: INSU100C4 SQ (11:17)
[2019-12-19] MEDS ORDERED: INSU100I13 SQ (11:17)
[2019-12-19] MEDS ORDERED: CLOP75TA PO (11:17)
[2019-12-19] MEDS ORDERED: DULO30CA2 PO (11:17)
[2019-12-19] MEDS ORDERED: ATOR40TA59 PO (11:17)
[2019-12-19] MEDS ORDERED: AMLO10TA8 PO (11:17)
[2019-12-19] MEDS ORDERED: ASPI-630 PO (11:17)
[2019-12-19] MEDS ORDERED: OMEP20CA16 PO (11:17)
[2019-12-19] MEDS ORDERED: GABA600T7 PO (11:17)
[2019-12-19] MEDS ORDERED: CEPH-264 PO (14:54)
== END 2019-09-29 01:30 | disposition home or self-care (01) ==
LOC: ER 23:19
DX: R41.82 Altered mental status, unspecified (principal); I12.0 Hypertensive chronic kidney disease with stage 5 chronic kidney disease or end stage renal disease; E10.22 Type 1 diabetes mellitus with diabetic chronic kidney disease; N18.6 End stage renal disease; G43.909 Migraine, unspecified, not intractable, without status migrainosus; Z99.2 Dependence on renal dialysis; Z94.0 Kidney transplant status; Z79.4 Long term (current) use of insulin; Z88.5 Allergy status to narcotic agent; Z91.040 Latex allergy status; Z88.1 Allergy status to other antibiotic agents; Z88.8 Allergy status to other drugs, medicaments and biological substances
CPT/HCPCS: 36415; 70450; 71045; 80053; 82962; 83880; 84484; 85025; 85610; 85730; 93005; 99285-25

== ENCOUNTER 2019-10-19 19:54 | Inpatient (IN) | payer OTHER ==
[~2019-10-19] VITALS: Ht 170.2 cm; Wt 58.0 kg
[~2019-10-19 19:54] MED LIST changes: +ASPI-612 PO; -ASPI-886 PO; +AZIT250T PO
--- NOTE | 2019-10-19 20:16 | PHYS DOC ---
Past Medical History Past Medical History: Diabetes-Type I, Hypertension, Migraines, Pneumonia, Renal Failure, Other Additional Past Medical Histor: ACUTE RENAL FAILURE on dialysis, hypoglycemia Past Surgical History: Other Additional Past Surgical Histo: CHARLES KIDNEY TRANSPLANT,DIALYSIS CATH,DOUBLE BKA,HERNIA,L EYE IMPLANT Smoking Status: Never Smoker Alcohol Use: None Drug Use: None General Adult EDM: Chief Complaint: SHORTNESS OF BREATH HPI: HPI: Patient is a 54 year old male presents with 4 to 5-day history of shortness of breath. Patient is on dialysis and received a full dialysis yesterday. Patient denies any chest pain. Patient denies any fever cough or exposure to coronavirus. Patient states shortness of breath is worse with exertion as well as laying down. Patient was found to be satting in the 50s and registration. Review of Systems: Review of Systems: Constitutional: Denies fever or chills. [] Eyes: Denies change in visual acuity. [] HENT: Denies nasal congestion or sore throat. [] Respiratory: Denies cough but complains of shortness of breath. [] Cardiovascular: Denies chest pain or edema. [] GI: Denies abdominal pain, nausea, vomiting, bloody stools or diarrhea. [] : Denies dysuria. [] Musculoskeletal: Denies back pain or joint pain. [] Integument: Denies rash. [] Neurologic: Denies headache, focal weakness or sensory changes. [] Endocrine: Denies polyuria or polydipsia. [] Lymphatic: Denies swollen glands. [] Psychiatric: Denies depression or anxiety. [] Heart Score: Risk Factors: Risk Factors: DM, Current or recent (<one month) smoker, HTN, HLP, family history of CAD, obesity. Risk Scores: Score 0 - 3: 2.5% MACE over next 6 weeks - Discharge Home Score 4 - 6: 20.3% MACE over next 6 weeks - Admit for Clinical Observation Score 7 - 10: 72.7% MACE over next 6 weeks - Early Invasive Strategies Allergies: Allergies: Allergies Coded Allergies Type Severity Reaction Last Updated Verified morphine Allergy Severe Nausea and Vomiting 07/19/19 Yes promethazine Allergy Severe sob, "throat swelling" 09/20/19 Yes amoxicillin Allergy Intermediate Rash 11/04/18 Yes butorphanol Allergy Intermediate Itching 02/14/19 Yes dexamethasone Allergy Intermediate Itching 11/04/18 Yes latex Allergy Intermediate Rash 11/04/18 Yes pregabalin Allergy Intermediate 04/27/19 Yes succinylcholine Allergy Intermediate 11/04/18 Yes Physical Exam: PE: Constitutional: Well developed, well nourished, no acute distress, non-toxic appearance. [] HENT: Normocephalic, atraumatic, bilateral external ears normal, oropharynx moist, no oral exudates, nose normal. [] Eyes: PERRLA, EOMI, conjunctiva normal, no discharge. [] Neck: Normal range of motion, no tenderness, supple, no stridor. [] Cardiovascular: Regular rate and rhythm. Lungs & Thorax: No respiratory distress on 6 L. Decreased breath sounds. Cat heter in the right side of the chest for dialysis Abdomen: Bowel sounds normal, soft, no tenderness, no masses, no pulsatile masses. [] Skin: Warm, dry, no erythema, no rash. [] Back: No tenderness, no CVA tenderness. [] Extremities: Bilateral BKA's Neurologic: Alert and oriented X 3, normal motor function, normal sensory function, no focal deficits noted. [] Psychologic: Affect normal, judgement normal, mood normal. [] EKG: EKG: [] EKG interpreted by me normal sinus rhythm with a rate of 93 left axis deviation, LVH, nonspecific ST changes Radiology/Procedures: Radiology/Procedures: [][facility] [address] [place], [place] [id number] IMAGING REPORT Signed PATIENT: ELVIN MORFIN ACCOUNT: [id number] : 1965 LOCATION: ER AGE: 54 SEX: M EXAM STATUS: REG ER ORD. PHYSICIAN: TATIANA GUTIERREZ MD REASON: soa PROCEDURE: PORTABLE CHEST 1V EXAM: PORTABLE CHEST 1V DATE: 10/19/2019 8:03 PM INDICATION: Shortness of air COMPARISON: 09/28/2019 FINDINGS: . Enlarged cardiomediastinal silhouette is grossly stable accounting for differences in positioning and technique. Bilateral parenchymal opacities are grossly stable accounting for differences in projection and technique Small bilateral pleural effusions. No pneumothorax. IMPRESSION: Cardiomegaly with bilateral parenchymal opacities and pleural effusions appear to represent pulmonary edema. Multifocal consolidative process would also have this appearance. Compared to 09/28/2019, these findings are unchanged. Electronically signed by: Awais Oviedo MD (10/19/2019 9:38 PM) [facility] DICTATED and SIGNED BY: AWAIS OVIEDO MD DATE: 10/19/192137 [facility] [address] [place] [address] IMAGING REPORT Signed PATIENT: ELVIN MORFIN ACCOUNT: [id number] : 1965 LOCATION: ED HOLD AGE: 54 SEX: M EXAM STATUS: ADM IN ORD. PHYSICIAN: TTAIANA GUTIERREZ MD REASON: SOA, PUI, HX OF PNA LAST MO. OMNI 350, 90 ML IV PROCEDURE: CT ANGIOGRAPHY CHEST EXAM: CT Pulmonary Angiogram INDICATION: Reason: SOA, PUI, HX OF PNA LAST MO. OMNI 350, 90 ML IV / Spl. Instructions: KNOWN DIALYSIS PATIENT, / History: TECHNIQUE: Multi-detector row images were acquired from the thoracic inlet through the upper abdomen with the use of IV contrast. Sagittal and coronal images were acquired from the transaxial data. MIP images of the pulmonary arteries were obtained. All CT scans performed at this facility utilize dose optimization techniques as appropriate to the exam, including the following: Automated exposure control and adjustment of the mA and/or KV according to patient size (this includes techniques or standardized protocols for targeted exams where dose is indication/reason for exam). IV CONTRAST: Administered COMPARISON: Chest x-ray 10/19/2019 FINDINGS: PULMONARY ARTERIES: No pulmonary emboli are identified. CARDIOVASCULAR: Cardiomegaly and coronary artery calcifications. Dialysis catheter terminates in the right atrium. Aorta is normal caliber. MEDIASTINUM & JHONY: The trachea is slitlike and in some places completely collapsed. There is mild narrowing of the bilateral mainstem bronchi as well. Mediastinum shows several mildly enlarged lymph nodes including precarinal node measuring 1.7 cm diameter. LUNGS: Bilateral peribronchial and perihilar consolidative change is present with interlobular septal thickening in the better aerated lungs at the apices. There is partial atelectasis of the bilateral lower lobes. PLEURAL SPACE: Moderate bilateral pleural effusions are present. No pneumothorax. OSSEOUS & SOFT TISSUE: Unremarkable ABDOMEN: Included upper abdomen shows atrophic [place] kidneys and surgical changes from previous bowel surgery. IMPRESSION: 1. No pulmonary emboli. 2. Findings of alveolar pulmonary edema with bilateral pleural effusions and tracheobronchomalacia. Cannot exclude superimposed pneumonia. Correlate clinically. Electronically signed by: Rey Drummond MD (10/20/2019 12:30 AM) [facility] [place] DICTATED and SIGNED BY: REY DRUMMOND MD DATE: 10/20/1929 Course & Med Decision Making: Course & Med Decision Making Pertinent Labs and Imaging studies reviewed. (See chart for details) [] Patient sats stool 100% on 6 L. Patient's x-ray looks like volume overload there is multifocal infiltrative process. Patient started on antibiotics and will be admitted. Discussed the case with Dr. Johnson who will admit. Dr. Wiggins has also been consulted for dialysis tomorrow. Patient will be a patient under investigation for COVID-19. Later in the visit patient began to complain of his usual headache. Patient was nauseous and received Toradol and Zofran. Pain persisted was ordered a dose of Dilaudid. Dragon Disclaimer: Dragon Disclaimer: This electronic medical record was generated, in whole or in part, using a voice recognition dictation system. Departure Departure Impression: Primary Impression: Hypoxia Additional Impressions: Respiratory failure ESRD (end stage renal disease) ESRD on dialysis Person under investigation for COVID-19 Volume overload Disposition: ADMITTED INPATIENT Admitting Physician: ASH (CONCHIS) Condition: IMPROVED Referrals: FLAVIA FERNANDES MD (PCP) Justicifation of Admission Dx: Justifications for Admission: Justification of Admission Dx: Yes TATIANA GUTIERREZ MD Oct 19, 2019 20:16
[2019-10-19 21:05] LABS: BASO # 0.1 x10^3/uL (0.0-0.2); BASO % 1 % (0-3); EOS # 0.3 x10^3/uL (0.0-0.7); EOS % 8 % (0-3); HEMATOCRIT 25.6 % (39.0-53.0); HEMOGLOBIN 8.7 g/dL (13.0-17.5); LYMPH # 0.9 x10^3/uL (1.0-4.8); LYMPH % 19 % (24-48); MEAN CORPUSCULAR HEMOGLOBIN 31 pg (25-35); MEAN CORPUSCULAR HGB CONC 34 g/dL (31-37); MEAN CORPUSCULAR VOLUME 93 fL (79-100); MONO # 0.3 x10^3/uL (0.0-1.1); MONO % 8 % (0-9); NEUT # 2.9 x10^3/uL (1.8-7.7); NEUT % 64 % (31-73); PLATELET COUNT 247 x10^3/uL (140-400); RED BLOOD COUNT 2.77 x10^6/uL (4.30-5.70); RED CELL DISTRIBUTION WIDTH 16.8 % (11.5-14.5); WHITE BLOOD COUNT 4.5 x10^3/uL (4.0-11.0)
[2019-10-19 21:14] LABS: PROTHROMBIN TIME PATIENT 16.2 SEC (11.7-14.0)
[2019-10-19 21:17] LABS: D-DIMER 1.13 ug/mlFEU (0.00-0.50)
[2019-10-19 21:18] LABS: CALCIUM 8.8 mg/dL (8.5-10.1); CREATININE 7.2 mg/dL (0.7-1.3); POTASSIUM 4.5 mmol/L (3.5-5.1)
[2019-10-19 21:23] LABS: ALBUMIN/GLOBULIN RATIO 0.5 (1.0-1.7); TOTAL BILIRUBIN 0.5 mg/dL (0.2-1.0); TOTAL PROTEIN 8.6 g/dL (6.4-8.2)
--- NOTE | 2019-10-19 21:41 | RAD ---
EXAM: PORTABLE CHEST 1V DATE: 10/19/2019 8:03 PM INDICATION: Shortness of air COMPARISON: 09/28/2019 FINDINGS: . Enlarged cardiomediastinal silhouette is grossly stable accounting for differences in positioning and technique. Bilateral parenchymal opacities are grossly stable accounting for differences in projection and technique Small bilateral pleural effusions. No pneumothorax. IMPRESSION: Cardiomegaly with bilateral parenchymal opacities and pleural effusions appear to represent pulmonary edema. Multifocal consolidative process would also have this appearance. Compared to 09/28/2019, these findings are unchanged. Electronically signed by: Awais Antonio MD (10/19/2019 9:38 PM) [facility]
[2019-10-19] MEDS ORDERED: AZITHROMYCIN 500 MG in IV NORMAL SALINE 250ML 250 ML IV ONE (22:00)
[2019-10-19] MEDS ORDERED: ONDANSETRON PF 4 MG/2 ML VIAL. IV PRN (22:15)
[2019-10-19] MEDS ORDERED: AZITHRMYCN 500MG IVPB FOR OMNI 250 ML IV ONE (22:30)
[2019-10-19] MEDS ORDERED: cefTRIAXone IV Push 1 GM VIAL. IVP ONE (22:30)
[2019-10-19] MEDS ORDERED: CONTRAST GIVEN. MC PRN (22:45)
[2019-10-19] MEDS ORDERED: IOHEXOL 350 MG/ML 100 ML VIAL. IV ONE (23:00)
[2019-10-19] MEDS ORDERED: KETOROLAC 15 MG/ML VIAL. IVP ONE (23:30)
[2019-10-20] MEDS ORDERED: HYDROmorphone 2 MG/ML VIAL IV ONE ×2 (00:30→11:15)
--- NOTE | 2019-10-20 00:33 | RAD ---
EXAM: CT Pulmonary Angiogram INDICATION: Reason: SOA, PUI, HX OF PNA LAST MO. OMNI 350, 90 ML IV / Spl. Instructions: KNOWN DIALYSIS PATIENT, / History: TECHNIQUE: Multi-detector row images were acquired from the thoracic inlet through the upper abdomen with the use of IV contrast. Sagittal and coronal images were acquired from the transaxial data. MIP images of the pulmonary arteries were obtained. All CT scans performed at this facility utilize dose optimization techniques as appropriate to the exam, including the following: Automated exposure control and adjustment of the mA and/or KV according to patient size (this includes techniques or standardized protocols for targeted exams where dose is indication/reason for exam). IV CONTRAST: Administered COMPARISON: Chest x-ray 10/19/2019 FINDINGS: PULMONARY ARTERIES: No pulmonary emboli are identified. CARDIOVASCULAR: Cardiomegaly and coronary artery calcifications. Dialysis catheter terminates in the right atrium. Aorta is normal caliber. MEDIASTINUM & JHONY: The trachea is slitlike and in some places completely collapsed. There is mild narrowing of the bilateral mainstem bronchi as well. Mediastinum shows several mildly enlarged lymph nodes including precarinal node measuring 1.7 cm diameter. LUNGS: Bilateral peribronchial and perihilar consolidative change is present with interlobular septal thickening in the better aerated lungs at the apices. There is partial atelectasis of the bilateral lower lobes. PLEURAL SPACE: Moderate bilateral pleural effusions are present. No pneumothorax. OSSEOUS & SOFT TISSUE: Unremarkable ABDOMEN: Included upper abdomen shows atrophic [place] kidneys and surgical changes from previous bowel surgery. IMPRESSION: 1. No pulmonary emboli. 2. Findings of alveolar pulmonary edema with bilateral pleural effusions and tracheobronchomalacia. Cannot exclude superimposed pneumonia. Correlate clinically. Electronically signed by: Cyndi Drummond MD (10/20/2019 12:30 AM) [facility] [place]
[2019-10-20 03:30] VITALS: BP 112/67
--- NOTE | 2019-10-20 08:01 | PDOC1 ---
History and Physical Date of Admission Date of Admission DATE: 10/20/19 TIME: 07:52 Identification/Chief Complaint Chief Complaint Shortness of breath Source Source: Patient History of Present Illness History of Present Illness Mr Sarkar is a 53-year-old male w/ PMHx bilateral BKAs, diabetes, hypertension, migraines, ESRD on HD with h/o 2 failed kidney transplants who is well known to our service, admitted presents via EMS c/o severe shortness of breath. He notes 4 to 5-day history of shortness of breath. Patient is on dialysis and received a full dialysis session on 10/18/2019 Patient denies any chest pain. Patient denies any fever cough or exposure to coronavirus. Patient states shortness of breath is worse with exertion as well as laying down. He did have a sleep study 1 month ago and was started on 14 cm H2O at night nasal pillows. He notes worsening nasal congestion nausea with this therapy at home states he has been cleaning his device regularly, however it has been intolerable for him the last couple weeks. Patient was found with O2 saturation at 61% on room air. His O2 saturations improved 100% on 6 L, was decreased to 5 L. Chest x-ray with bilateral pleural effusions and infiltrate. CTPA performed revealing alveolar pulmonary edema with bilateral pleural effusions and tracheobronchomalacia. Labs reveal CBC, WBC 4.5, Hb 8.7, platelets 247, INR 1.3, sodium 133, K4.5, BUN 37, CR 7.2, glucose 372, procalcitonin elevated 0.55, BNP greater than 35,000, albumin 3. Admitted for further care Past Medical History Cardiovascular: CAD, HTN, Hyperlipidemia, Other Pulmonary: No pertinent hx CENTRAL NERVOUS SYSTEM: Migraine GI: GERD Heme/Onc: Anemia NOS, Other Psych: No pertinent hx Infectious disease: No pertinent hx Renal/: Chronic renal insuff Endocrine: Diabetes, Hyperparathyroidism Past Surgical History Past Surgical History: Other Family History Family History: Heart Disease Social History Smoke: No ALCOHOL: none Drugs: None Current Problem List Problem List Problems Medical Problems: (1) ESRD on dialysis Status: Chronic (2) Person under investigation for COVID-19 Status: Acute Current Medications Current Medications Current Medications Ceftriaxone Sodium (Rocephin) 1 gm 1X ONCE IVP Last administered on 10/19/19at 23:25; Start 10/19/19 at 22:30; Stop 10/19/19 at 22:31; Status DC Azithromycin 500 mg/Sodium Chloride 250 ml @ 250 mls/hr 1X ONCE IV ; Start 10/19/19 at 22:00; Stop 10/19/19 at 22:59; Status UNV Azithromycin 250 ml @ 250 mls/hr 1X ONCE IV Last administered on 10/19/19at 23:26; Start 10/19/19 at 22:30; Stop 10/19/19 at 23:29; Status DC Ondansetron HCl (Zofran) 4 mg PRN Q8HRS PRN IV NAUSEA/VOMITING 1ST CHOICE Last administered on 10/19/19at 23:21; Start 10/19/19 at 22:15; Stop 10/20/19 at 22:14 Iohexol (Omnipaque 350 Mg/ml) 90 ml 1X ONCE IV Last administered on 10/19/19at 23:41; Start 10/19/19 at 23:00; Stop 10/19/19 at 23:01; Status DC Info (CONTRAST GIVEN -- Rx MONITORING) 1 each PRN DAILY PRN MC SEE COMMENTS; Start 10/19/19 at 22:45; Stop 10/21/19 at 22:44 Ketorolac Tromethamine (Toradol 15mg Vial) 15 mg 1X ONCE IVP Last administered on 10/19/19at 23:22; Start 10/19/19 at 23:30; Stop 10/19/19 at 23:31; Status DC Hydromorphone HCl (Dilaudid) 0.5 mg 1X ONCE IV Last administered on 10/20/19at 00:38; Start 10/20/19 at 00:30; Stop 10/20/19 at 00:31; Status DC Active Scripts Active Zithromax (Azithromycin) 250 Mg Tablet 1 Pkg PO UD Doxycycline Hyclate 100 Mg Tablet 1 Tab PO BID 5 Days Culturelle (Lactobacillus Rhamnosus Gg) 1 Each Cap.sprink 1 Cap PO BID 30 Days Tylenol (Acetaminophen) 325 Mg Tablet 650 Mg PO PRN Q4HRS PRN 30 Days Aspirin Ec (Aspirin) 81 Mg Tablet.dr 162 Mg PO DAILYWBKFT 30 Days Lisinopril 40 Mg Tablet 20 Mg PO DAILY 30 Days Metoclopramide Hcl 5 Mg Tablet 2.5 Mg PO QIDACHS 30 Days Vitamin A & D Ointment (Vits A & D/White Pet/Lanolin) 56.7 Gm Oint...g. 1 [place] TP BID 30 Days Humalog (Insulin Lispro) 100 Unit/1 Ml Insuln.pen 7 Units SQ TIDWMEALS 30 Days Polyethylene Glycol 3350 17 Gm Powd.pack 17 Gm PO DAILY Amlodipine Besylate 10 Mg Tablet 10 Mg PO DAILY MDD 1 Reported [place] 5-325 Tablet (Acetaminophen/Hydrocodone Bitart) 1 Each Tablet 1 Tab PO PRN Q4HRS PRN Lantus (Insulin Glargine,Hum.rec.anlog) 100 Unit/1 Ml Vial 4 Unit SQ HS Atorvastatin Calcium 40 Mg Tablet 1 Tab PO DAILY Omeprazole 20 Mg Tablet.dr 1 Tab PO DAILY Carvedilol 25 Mg Tablet 25 Mg PO BIDWMEALS Clonidine Hcl 0.2 Mg Tablet 0.4 Mg PO QHS Allergies Allergies: Coded Allergies: morphine (Verified Allergy, Severe, Nausea and Vomiting, 07/19/19) promethazine (Verified Allergy, Severe, sob, "throat swelling", 09/20/19) Tolerates compazine amoxicillin (Verified Allergy, Intermediate, Rash, 11/04/18) TOLERATES ZOSYN butorphanol (Verified Allergy, Intermediate, Itching, 02/14/19) Tolerates hydrocodone dexamethasone (Verified Allergy, Intermediate, Itching, 11/04/18) latex (Verified Allergy, Intermediate, Rash, 11/04/18) pregabalin (Verified Allergy, Intermediate, 04/27/19) gabapentin ok succinylcholine (Verified Allergy, Intermediate, 11/04/18) ROS General: YES: Chills, Fatigue, Malaise; No: Night Sweats, Appetite, Other PSYCHOLOGICAL ROS: No: Anxiety, Behavioral Disorder, Concentration difficultie, Decreased libido, Depression, Disorientation, Hallucinations, Hostility, Irritablity, Memory difficulties, Mood Swings, Obsessive thoughts, Physical abuse, Sexual abuse, Sleep disturbances, Suicidal ideation, Other Eyes: No Blurry vision, No Decreased vision, No Double vision, No Dry eyes, No Excessive tearing, No Eye Pain, No Itchy Eyes, No Loss of vision, No Photophobia, No [place]omata, No Uses contacts, No Uses glasses, No Other HEENT: YES: Nasal congestion, Nasal discharge; No: Heacaches, Visual Changes, Hearing change, Oral lesions, Sinus pain, Sore Throat, Epistaxis, Sneezing, Snoring, Tinnitus, Vertigo, Vocal changes, Other ALLERGY AND IMMUNOLOGY: No: Hives, Insect Bite Sensitivity, Itchy/Watery Eyes, Nasal Congestion, Post Nasal Drip, Seasonal Allergies, Other Hematological and Lymphatic: No: Bleeding Problems, Blood Clots, Blood Transfusions, Brusing, Night Sweats, Pallor, Swollen Lymph Nodes, Other ENDOCRINE: No: Breast Changes, Galactorrhea, Hair Pattern Changes, Hot Flashes, Malaise/lethargy, Mood Swings, Palpitations, Polydipsia/polyuria, Skin Changes, Temperature Intolerance, Unexpected Weight Changes, Other Breast: No New/Changing Breast Lumps, No Nipple changes, No Nipple discharge, No Other Respiratory: YES: Cough, Shortness of breath, SOB with excertion; No: Hemoptysis, Orthopnea, Pleuritic Pain, Sputum Changes, Stridor, Tachypnea, Wheezing, Other Cardiovascular: No Chest Pain, No Palpitations, No Orthopnea, No Paroxysmal Noc. Dyspnea, No Edema, No Lt Headedness, No Other Gastrointestinal: No Nausea, No Vomiting, No Abdominal Pain, No Diarrhea, No Constipation, No Melena, No Hematochezia, No Other Genitourinary: No Dysuria, No Frequency, No Incontinence, No Hematuria, No Retention, No Discharge, No Urgency, No Pain, No Flank Pain, No Other, No , No , No , No , No , No , No Musculoskeletal: No Gait Disturbance, No Joint Pain, No Joint Stiffness, No Joint Swelling, No Muscle Pain, No Muscular Weakness, No Pain In:, No Swelling In:, No Other Neurological: No Behavorial Changes, No Bowel/Bladder ControlChng, No Confusion, No Dizziness, No Gait Disturbance, No Headaches, No Impaired Coord/balance, No Memory Loss, No Numbness/Tingling, No Seizures, No Speech Problems, No Tremors, No Visual Changes, No Weakness, No Other Skin: No Dry Skin, No Eczema, No Hair Changes, No Lumps, No Mole Changes, No Mottling, No Nail Changes, No Pruritus, No Rash, No Skin Lesion Changes, No Other, No Acne Physical Exam General: Alert, Oriented X3, Cooperative, mild distress HEENT: Atraumatic, PERRLA, EOMI, Mucous membr. moist/pink Lungs: Other (Bibasilar crackles) Heart: S1S2, RRR, no thrills, no rubs, no gallops, no murmurs Abdomen: Normal bowel sounds, Soft, No tenderness, No hepatosplenomegaly, No masses Rectal Exam: not examined Extremities: No clubbing, No cyanosis, No edema, Normal pulses, No tenderness/swelling, Other (Bilateral BKA stumps clean) Skin: No rashes, No breakdown, No significant lesion Neuro: Normal speech, Strength at 5/5 X4 ext, Cranial nerves 3-12 NL, Reflexes 2+, Other Psych/Mental Status: Mental status NL, Mood NL Vitals Vitals Vital Signs Date Time Temp Pulse Resp B/P (MAP) Pulse Ox O2 Delivery O2 Flow Rate FiO2 10/20/19 03:30 98.9 82 15 112/67 (82) 99 Room Air 98.9 10/20/19 01:08 5.0 Labs Labs Laboratory Tests Test 10/19/19 20:42 10/19/19 23:19 10/20/19 01:25 White Blood Count 4.5 x10^3/uL (4.0-11.0) Red Blood Count 2.77 x10^6/uL (4.30-5.70) Hemoglobin 8.7 g/dL (13.0-17.5) Hematocrit 25.6 % (39.0-53.0) Mean Corpuscular Volume 93 fL (79-100) Mean Corpuscular Hemoglobin 31 pg (25-35) Mean Corpuscular Hemoglobin Concent 34 g/dL (31-37) Red Cell Distribution Width 16.8 % (11.5-14.5) Platelet Count 247 x10^3/uL (140-400) Neutrophils (%) (Auto) 64 % (31-73) Lymphocytes (%) (Auto) 19 % (24-48) Monocytes (%) (Auto) 8 % (0-9) Eosinophils (%) (Auto) 8 % (0-3) Basophils (%) (Auto) 1 % (0-3) Neutrophils # (Auto) 2.9 x10^3/uL (1.8-7.7) Lymphocytes # (Auto) 0.9 x10^3/uL (1.0-4.8) Monocytes # (Auto) 0.3 x10^3/uL (0.0-1.1) Eosinophils # (Auto) 0.3 x10^3/uL (0.0-0.7) Basophils # (Auto) 0.1 x10^3/uL (0.0-0.2) Prothrombin Time 16.2 SEC (11.7-14.0) Prothromb Time International Ratio 1.3 (0.8-1.1) Activated Partial Thromboplast Time 34 SEC (24-38) D-Dimer (Maru) 1.13 ug/mlFEU (0.00-0.50) Sodium Level 133 mmol/L (136-145) Potassium Level 4.5 mmol/L (3.5-5.1) Chloride Level 95 mmol/L (98-107) Carbon Dioxide Level 30 mmol/L (21-32) Anion Gap 8 (6-14) Blood Urea Nitrogen 37 mg/dL (8-26) Creatinine 7.2 mg/dL (0.7-1.3) Estimated GFR (Cockcroft-Gault) 8.0 BUN/Creatinine Ratio 5 (6-20) Glucose Level 372 mg/dL (70-99) Lactic Acid Level 1.5 mmol/L (0.4-2.0) Calcium Level 8.8 mg/dL (8.5-10.1) Total Bilirubin 0.5 mg/dL (0.2-1.0) Aspartate Amino Transf (AST/SGOT) 14 U/L (15-37) Alanine Aminotransferase (ALT/SGPT) 13 U/L (16-63) Alkaline Phosphatase 216 U/L (46-116) Troponin I Quantitative < 0.017 ng/mL (0.000-0.055) UH-Yww-V-Type Natriuretic Peptide > 98274 pg/mL (0-124) Total Protein 8.6 g/dL (6.4-8.2) Albumin 3.0 g/dL (3.4-5.0) Albumin/Globulin Ratio 0.5 (1.0-1.7) Procalcitonin 0.55 ng/mL (0.00-0.10) Glucose (Fingerstick) 182 mg/dL (70-99) 156 mg/dL (70-99) Laboratory Tests Test 10/19/19 20:42 10/19/19 23:19 10/20/19 01:25 White Blood Count 4.5 x10^3/uL (4.0-11.0) Red Blood Count 2.77 x10^6/uL (4.30-5.70) Hemoglobin 8.7 g/dL (13.0-17.5) Hematocrit 25.6 % (39.0-53.0) Mean Corpuscular Volume 93 fL (79-100) Mean Corpuscular Hemoglobin 31 pg (25-35) Mean Corpuscular Hemoglobin Concent 34 g/dL (31-37) Red Cell Distribution Width 16.8 % (11.5-14.5) Platelet Count 247 x10^3/uL (140-400) Neutrophils (%) (Auto) 64 % (31-73) Lymphocytes (%) (Auto) 19 % (24-48) Monocytes (%) (Auto) 8 % (0-9) Eosinophils (%) (Auto) 8 % (0-3) Basophils (%) (Auto) 1 % (0-3) Neutrophils # (Auto) 2.9 x10^3/uL (1.8-7.7) Lymphocytes # (Auto) 0.9 x10^3/uL (1.0-4.8) Monocytes # (Auto) 0.3 x10^3/uL (0.0-1.1) Eosinophils # (Auto) 0.3 x10^3/uL (0.0-0.7) Basophils # (Auto) 0.1 x10^3/uL (0.0-0.2) Prothrombin Time 16.2 SEC (11.7-14.0) Prothromb Time International Ratio 1.3 (0.8-1.1) Activated Partial Thromboplast Time 34 SEC (24-38) D-Dimer (Maru) 1.13 ug/mlFEU (0.00-0.50) Sodium Level 133 mmol/L (136-145) Potassium Level 4.5 mmol/L (3.5-5.1) Chloride Level 95 mmol/L (98-107) Carbon Dioxide Level 30 mmol/L (21-32) Anion Gap 8 (6-14) Blood Urea Nitrogen 37 mg/dL (8-26) Creatinine 7.2 mg/dL (0.7-1.3) Estimated GFR (Cockcroft-Gault) 8.0 BUN/Creatinine Ratio 5 (6-20) Glucose Level 372 mg/dL (70-99) Lactic Acid Level 1.5 mmol/L (0.4-2.0) Calcium Level 8.8 mg/dL (8.5-10.1) Total Bilirubin 0.5 mg/dL (0.2-1.0) Aspartate Amino Transf (AST/SGOT) 14 U/L (15-37) Alanine Aminotransferase (ALT/SGPT) 13 U/L (16-63) Alkaline Phosphatase 216 U/L (46-116) Troponin I Quantitative < 0.017 ng/mL (0.000-0.055) IR-Dmg-B-Type Natriuretic Peptide > 85373 pg/mL (0-124) Total Protein 8.6 g/dL (6.4-8.2) Albumin 3.0 g/dL (3.4-5.0) Albumin/Globulin Ratio 0.5 (1.0-1.7) Procalcitonin 0.55 ng/mL (0.00-0.10) Glucose (Fingerstick) 182 mg/dL (70-99) 156 mg/dL (70-99) Images Images CXR: Enlarged cardiomediastinal silhouette is grossly stable accounting for differences in positioning and technique. Bilateral parenchymal opacities are grossly stable accounting for differences in projection and technique Small bilateral pleural effusions. No pneumothorax. IMPRESSION: Cardiomegaly with bilateral parenchymal opacities and pleural effusions appear to represent pulmonary edema. Multifocal consolidative process would also have this appearance. Compared to 09/28/2019, these findings are unchanged. CTPA: PULMONARY ARTERIES: No pulmonary emboli are identified. CARDIOVASCULAR: Cardiomegaly and coronary artery calcifications. Dialysis catheter terminates in the right atrium. Aorta is normal caliber. MEDIASTINUM & JHONY: The trachea is slitlike and in some places completely collapsed. There is mild narrowing of the bilateral mainstem bronchi as well. Mediastinum shows several mildly enlarged lymph nodes including precarinal node measuring 1.7 cm diameter. LUNGS: Bilateral peribronchial and perihilar consolidative change is present with interlobular septal thickening in the better aerated lungs at the apices. There is partial atelectasis of the bilateral lower lobes. PLEURAL SPACE: Moderate bilateral pleural effusions are present. No pneumothorax. OSSEOUS & SOFT TISSUE: Unremarkable ABDOMEN: Included upper abdomen shows atrophic upper [place] kidneys and surgical changes from previous bowel surgery. IMPRESSION: 1. No pulmonary emboli. 2. Findings of alveolar pulmonary edema with bilateral pleural effusions and tracheobronchomalacia. Cannot exclude superimposed pneumonia. Correlate clinically. VTE Prophylaxis Ordered VTE Prophylaxis Devices: Yes VTE Pharmacological Prophylaxi: Yes Assessment/Plan Assessment/Plan A/P: Acute hypoxic respiratory failure - appears to be fluid overload, but given symptoms of illness will cover for HCAP. Due to his dialysis status will need COVID 19 testing prior to d/c from hospital Intractable nausea and vomiting - 2/2 Gastroparesis - will cont meds, d/c'd IV reglan due to patient intolerance Pulmonary edema - given sudden onset shortness of breath after dialysis he is being ruled out for COVID 19. More likely, however, is pulmonary edema related to fluid overload, CHF Pneumonia - likely gram negative given his risk factors, but with bilateral appearance could be MRSA, will cover with cefepime and vancomycin Anemia of CKD - stable, will monitor ESRD on HD - compensated, no immediate indication for dialysis. 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 Moderate obstructive sleep apnea, at an AHI of 22 per hour. FEN - Renal PPX - heparin FULL CODE Dispo - inpatient for hypoxia Justicifation of Admission Dx: Justifications for Admission: Justification of Admission Dx: Yes RAN JOE MD Oct 20, 2019 08:00
[2019-10-20] MEDS ORDERED: DEXTROSE 50% 25 GM / 50ML DISP.SYRIN. IV PRN (08:15)
[2019-10-20] MEDS ORDERED: ONDANSETRON PF 4 MG/2 ML VIAL. IV PRN (08:15)
[2019-10-20] MEDS ORDERED: ACETAMINOPHEN 325 MG TABLET. PO PRN (08:15)
[2019-10-20] MEDS: HYDROcodone/APAP 5/325MG 1 TAB TABLET PO PRN ×2 (09:15→11:02)
[2019-10-20] MEDS: VITS A & D/LANOLIN TOPICAL OINTMENT 42GM TUBE. TP SCH (09:30)
[2019-10-20] MEDS: CARVEDILOL 12.5 MG TABLET. PO SCH ×2 (09:39→17:59)
[2019-10-20] MEDS: LACTOBACILLUS RHAMNOSUS GG 1 CAPSULE. PO SCH (09:40)
[2019-10-20] MEDS: ASPIRIN ENTERIC COATED 81 MG TABLET.DR. PO SCH (09:41)
[2019-10-20] MEDS: POLYETHYLENE GLYCOL 3350 17 GM PACKET. PO SCH (09:42)
[2019-10-20] MEDS: ATORVASTATIN CALCIUM 40 MG TABLET. PO SCH (09:42)
[2019-10-20] MEDS: amLODIPine BESYLATE 10 MG TABLET PO SCH (09:44)
[2019-10-20] MEDS: LISINOPRIL 20 MG TABLET PO SCH (09:45)
[2019-10-20] MEDS: PANTOPRAZOLE 40 MG TABLET.DR. PO SCH (09:46)
[2019-10-20] MEDS ORDERED: IV NORMAL SALINE 1000ML BAG 1,000 ML IV PRN ×2 (09:53)
[2019-10-20] MEDS ORDERED: 0.9 % SODIUM CHLORIDE 10 ML DISP.SYRIN. IV PRN ×2 (10:00)
[2019-10-20] MEDS ORDERED: DIALYSIS PATIENT. MC PRN ×2 (10:00)
[2019-10-20] MEDS ORDERED: diphenhydrAMINE 50 MG/ML VIAL IV PRN ×2 (10:00)
[2019-10-20] MEDS ORDERED: ALBUMIN HUMAN 25% 200 ML IV PRN (10:00)
[2019-10-20] MEDS ORDERED: VANCOMYCIN 1.25 GM in IV NORMAL SALINE 250ML 250 ML IV ONE (10:15)
[2019-10-20] MEDS ORDERED: PIP/TAZO PER PHARMACY MC PRN (10:15)
[2019-10-20] MEDS ORDERED: PIPERACILLIN/TAZOBACTAM 2.25 GM in IV NORMAL SALINE 50ML 50 ML IV ONE (10:30)
[2019-10-20] MEDS ORDERED: VANCOMYCIN 1.5 GM in IV NORMAL SALINE 500ML BAG 500 ML IV ONE (11:00)
[2019-10-20] MEDS: METOCLOPRAMIDE 5 MG TABLET. PO SCH ×2 (11:30→16:30)
--- NOTE | 2019-10-20 11:46 | EKG ---
[facility] [address] [place] [address] Test Date: 2019-10-19 Test Time: 20:29:05 Pat Name: ELVIN MORFIN Department: Room: Gender: M [employer]: : [id number] Requested By: TATIANA GUTIERREZ Order Number: [id number] Reading MD: Measurements Intervals [place] Rate: 93 P: 43 WI: 156 QRS: -28 QRSD: 106 T: 128 QT: 342 QTc: 428 Interpretive Statements SINUS RHYTHM LEFTWARD AXIS R-S TRANSITION ZONE IN V LEADS DISPLACED TO THE LEFT LVH WITH REPOLARIZATION ABNORMALITY ABNORMAL ECG RI6.02 Compared to ECG 10/19/2019 20:27:25 Left-axis deviation now present Left ventricular hypertrophy now present Early repolarization now present
[2019-10-20] MEDS ORDERED: PIPERACILLIN/TAZOBACTAM 2.25 GM in IV NORMAL SALINE 50ML 50 ML IV SCH ×2 (14:00→22:00)
[2019-10-20] MEDS: INSULIN LISPRO 300 UNITS/3 ML VIAL. SQ SCH ×4 (14:51→17:58)
[2019-10-20] MEDS: HEPARIN for SUB-Q USE 5,000 UNIT/ML VIAL. SQ SCH (14:56)
--- NOTE | 2019-10-20 15:48 | PDOC2 ---
CONSULT Date of Consult Date of Consult DATE: 10/20/19 TIME: 15:43 Reason for Consult Reason for Consult: ESRD AND SOB Referring Physician Referring Physician: TATYANA Identification/Chief Complaint Chief Complaint SOB Source Source: Chart review, Patient History of Present Illness Reason for Visit: THIS IS A 53 YR OLD ESRD PT WITH SOB. HE HAS OP HD ON MWF. LAST OP HD WAS ON SUNDAY. HAS ESRD DUE TO DM I. HAS A TDC HE HAS FAILED ALL AV ACCESS ATTEMPTS. CURRENTLY NOTED TO HAVE PULM VASCULAR CONGESTION AND BEING RULED OUT FOR COVID. HX ALSO NOTED FOR FAILED PD IN THE PAST. LABS NOTED AND C/W ESRD Past Medical History Cardiovascular: CAD, HTN, Hyperlipidemia, Other Pulmonary: No pertinent hx CENTRAL NERVOUS SYSTEM: Migraine GI: GERD Heme/Onc: Anemia NOS, Other Psych: No pertinent hx Infectious disease: No pertinent hx Renal/: Chronic renal insuff Endocrine: Diabetes, Hyperparathyroidism Past Surgical History Past Surgical History: Other Family History Family History: No Significant, Heart Disease Social History No ALCOHOL: none Drugs: None Lives: with Family Current Problem List Problem List Problems Medical Problems: (1) ESRD on dialysis Status: Chronic (2) Person under investigation for COVID-19 Status: Acute Current Medications Current Medications Current Medications Ceftriaxone Sodium (Rocephin) 1 gm 1X ONCE IVP Last administered on 10/19/19at 23:25; Start 10/19/19 at 22:30; Stop 10/19/19 at 22:31; Status DC Azithromycin 500 mg/Sodium Chloride 250 ml @ 250 mls/hr 1X ONCE IV ; Start 10/19/19 at 22:00; Stop 10/19/19 at 22:59; Status UNV Azithromycin 250 ml @ 250 mls/hr 1X ONCE IV Last administered on 10/19/19at 23:26; Start 10/19/19 at 22:30; Stop 10/19/19 at 23:29; Status DC Ondansetron HCl (Zofran) 4 mg PRN Q8HRS PRN IV NAUSEA/VOMITING 1ST CHOICE Last administered on 10/19/19at 23:21; Start 10/19/19 at 22:15; Stop 10/20/19 at 08:04; Status DC Iohexol (Omnipaque 350 Mg/ml) 90 ml 1X ONCE IV Last administered on 10/19/19at 23:41; Start 10/19/19 at 23:00; Stop 10/19/19 at 23:01; Status DC Info (CONTRAST GIVEN -- Rx MONITORING) 1 each PRN DAILY PRN MC SEE COMMENTS; Start 10/19/19 at 22:45; Stop 10/21/19 at 22:44 Ketorolac Tromethamine (Toradol 15mg Vial) 15 mg 1X ONCE IVP Last administered on 10/19/19at 23:22; Start 10/19/19 at 23:30; Stop 10/19/19 at 23:31; Status DC Hydromorphone HCl (Dilaudid) 0.5 mg 1X ONCE IV Last administered on 10/20/19at 00:38; Start 10/20/19 at 00:30; Stop 10/20/19 at 00:31; Status DC Ondansetron HCl (Zofran) 4 mg PRN Q4HRS PRN IV NAUSEA/VOMITING 1ST CHOICE; St art 10/20/19 at 08:15 Acetaminophen (Tylenol) 650 mg PRN Q4HRS PRN PO TEMP OVER 100.4F OR MILD PAIN; Start 10/20/19 at 08:15 Amlodipine Besylate (Norvasc) 10 mg DAILY PO Last administered on 10/20/19at 09:44; Start 10/20/19 at 09:30 Aspirin (Ecotrin) 162 mg DAILYWBKFT PO Last administered on 10/20/19at 09:41; Start 10/20/19 at 09:30 Atorvastatin Calcium (Lipitor) 40 mg DAILY PO Last administered on 10/20/19at 09:42; Start 10/20/19 at 09:30 Clonidine HCl (Catapres) 0.4 mg QHS PO ; Start 10/20/19 at 21:00 Acetaminophen/ Hydrocodone Bitart (Lortab 5/325) 1 tab PRN Q4HRS PRN PO PAIN Last administered on 10/20/19at 11:02; Start 10/20/19 at 08:15 Insulin Glargine (Lantus Syringe) 4 unit HS SQ ; Start 10/20/19 at 21:00 Lactobacillus Rhamnosus (Culturelle) 1 cap BID PO Last administered on 10/20/19at 09:40; Start 10/20/19 at 09:30 Lisinopril (Prinivil) 20 mg DAILY PO Last administered on 10/20/19at 09:45; Start 10/20/19 at 09:30 Metoclopramide HCl (Reglan) 2.5 mg QIDACHS PO ; Start 10/20/19 at 11:30 Polyethylene Glycol (miraLAX PACKET) 17 gm DAILY PO Last administered on 10/20/19at 09:42; Start 10/20/19 at 09:30 Vitamin A/Vitamin D (Vitamin A & D Ointment) 1 marlin BID TP ; Start 10/20/19 at 09:30 Carvedilol (Coreg) 25 mg BIDWMEALS PO Last administered on 10/20/19at 09:39; Start 10/20/19 at 09:30 Insulin Human Lispro (HumaLOG) 3 units TIDWMEALS SQ ; Start 10/20/19 at 12:00 Pantoprazole Sodium (Protonix) 40 mg DAILYAC PO Last administered on 10/20/19at 09:46; Start 10/20/19 at 09:30 Insulin Human Lispro (HumaLOG) 0-5 UNITS TIDACHC SQ ; Start 10/20/19 at 11:30 Dextrose (Dextrose 50%-Water Syringe) 12.5 gm PRN Q15MIN PRN IV SEE COMMENTS; Start 10/20/19 at 08:15 Heparin Sodium (Porcine) (Heparin Sodium) 5,000 unit Q8HRS SQ Last administered on 10/20/19at 14:56; Start 10/20/19 at 14:00 Sodium Chloride 1,000 ml @ 1,000 mls/hr Q1H PRN IV hypotension; Start 10/20/19 at 09:53; Stop 10/20/19 at 15:52 Albumin Human 200 ml @ 200 mls/hr 1X PRN PRN IV Hypotension; Start 10/20/19 at 10:00; Stop 10/20/19 at 15:59 Diphenhydramine HCl (Benadryl) 25 mg 1X PRN PRN IV ITCHING; Start 10/20/19 at 10:00; Stop 10/21/19 at 09:59 Diphenhydramine HCl (Benadryl) 25 mg 1X PRN PRN IV ITCHING; Start 10/20/19 at 10:00; Stop 10/21/19 at 09:59 Sodium Chloride (Normal Saline Flush) 10 ml 1X PRN PRN IV AP catheter pack; Start 10/20/19 at 10:00; Stop 10/21/19 at 09:59 Sodium Chloride (Normal Saline Flush) 10 ml 1X PRN PRN IV CRATE TIER catheter pack; Start 10/20/19 at 10:00; Stop 10/21/19 at 09:59 Sodium Chloride 1,000 ml @ 400 mls/hr Q2H30M PRN IV PATENCY; Start 10/20/19 at 09:53; Stop 10/20/19 at 21:52 Info (PHARMACY MONITORING -- do not chart) 1 each PRN DAILY PRN MC SEE COMMENTS; Start 10/20/19 at 10:00 Info (PHARMACY MONITORING -- do not chart) 1 each PRN DAILY PRN MC SEE COMMENTS; Start 10/20/19 at 10:00; Stop 10/20/19 at 10:07; Status DC Piperacillin Sod/ Tazobactam Sod (Zosyn Per Pharmacy) 1 each PRN DAILY PRN MC SEE COMMENTS; Start 10/20/19 at 10:15; Status UNV Piperacillin Sod/ Tazobactam Sod 2.25 gm/Sodium Chloride 50 ml @ 100 mls/hr Q8HRS IV ; Start 10/20/19 at 14:00; Status UNV Vancomycin HCl (Vanco Per Pharmacy) 1 each PRN DAILY PRN MC SEE COMMENTS; Start 10/20/19 at 10:15; Status UNV Vancomycin HCl 1.25 gm/Sodium Chloride 250 ml @ 166.667 mls/hr 1X ONCE IV ; Start 10/20/19 at 10:15; Stop 10/20/19 at 10:14; Status DC Piperacillin Sod/ Tazobactam Sod 2.25 gm/Sodium Chloride 50 ml @ 100 mls/hr ONCE ONCE IV Last administered on 10/20/19at 14:45; Start 10/20/19 at 10:30; Stop 10/20/19 at 10:59; Status DC Vancomycin HCl 1.5 gm/Sodium Chloride 500 ml @ 250 mls/hr 1X ONCE IV Last administered on 10/20/19at 15:39; Start 10/20/19 at 11:00; Stop 10/20/19 at 12:59; Status DC Hydromorphone HCl (Dilaudid) 0.5 mg 1X ONCE IV Last administered on 10/20/19at 12:57; Start 10/20/19 at 11:15; Stop 10/20/19 at 11:16; Status DC Active Scripts Active Zithromax (Azithromycin) 250 Mg Tablet 1 Pkg PO UD Doxycycline Hyclate 100 Mg Tablet 1 Tab PO BID 5 Days Culturelle (Lactobacillus Rhamnosus Gg) 1 Each Cap.sprink 1 Cap PO BID 30 Days Tylenol (Acetaminophen) 325 Mg Tablet 650 Mg PO PRN Q4HRS PRN 30 Days Aspirin Ec (Aspirin) 81 Mg Tablet.dr 162 Mg PO DAILYWBKFT 30 Days Lisinopril 40 Mg Tablet 20 Mg PO DAILY 30 Days Metoclopramide Hcl 5 Mg Tablet 2.5 Mg PO QIDACHS 30 Days Vitamin A & D Ointment (Vits A & D/White Pet/Lanolin) 56.7 Gm Oint...g. 1 [place] TP BID 30 Days Humalog (Insulin Lispro) 100 Unit/1 Ml Insuln.pen 7 Units SQ TIDWMEALS 30 Days Polyethylene Glycol 3350 17 Gm Powd.pack 17 Gm PO DAILY Amlodipine Besylate 10 Mg Tablet 10 Mg PO DAILY MDD 1 Reported [place] 5-325 Tablet (Acetaminophen/Hydrocodone Bitart) 1 Each Tablet 1 Tab PO PRN Q4HRS PRN Lantus (Insulin Glargine,Hum.rec.anlog) 100 Unit/1 Ml Vial 4 Unit SQ HS Atorvastatin Calcium 40 Mg Tablet 1 Tab PO DAILY Omeprazole 20 Mg Tablet. 1 Tab PO DAILY Carvedilol 25 Mg Tablet 25 Mg PO BIDWMEALS Clonidine Hcl 0.2 Mg Tablet 0.4 Mg PO QHS Allergies Allergies: Coded Allergies: morphine (Verified Allergy, Severe, Nausea and Vomiting, 07/19/19) promethazine (Verified Allergy, Severe, sob, "throat swelling", 09/20/19) Tolerates compazine amoxicillin (Verified Allergy, Intermediate, Rash, 11/04/18) TOLERATES ZOSYN butorphanol (Verified Allergy, Intermediate, Itching, 02/14/19) Tolerates hydrocodone dexamethasone (Verified Allergy, Intermediate, Itching, 11/04/18) latex (Verified Allergy, Intermediate, Rash, 11/04/18) pregabalin (Verified Allergy, Intermediate, 04/27/19) gabapentin ok succinylcholine (Verified Allergy, Intermediate, 11/04/18) ROS General: YES: Fatigue, Malaise PSYCHOLOGICAL ROS: YES: Anxiety, Depression Eyes: Yes Decreased vision ALLERGY AND IMMUNOLOGY: YES: Seasonal Allergies Respiratory: YES: Cough, Orthopnea Cardiovascular: yes Orthopnea Gastrointestinal: Yes Constipation Genitourinary: YES Other (ANURIA) Musculoskeletal: Yes Muscular Weakness, Yes Other (BILATERAL AKA) Neurological: Yes Weakness Skin: Yes Dry Skin Physical Exam General: Alert, Oriented X3, Cooperative, mild distress HEENT: Atraumatic, PERRLA, EOMI, Mucous membr. moist/pink Lungs: Other (BASILAR RALES) Abdomen: Normal bowel sounds Extremities: No clubbing Skin: No breakdown Neuro: Normal speech, Sensation intact Psych/Mental Status: Mental status NL, Mood NL MUSCULOSKELETAL: No joint tenderness, No swelling Vitals VITALS Vital Signs Date Time Temp Pulse Resp B/P (MAP) Pulse Ox O2 Delivery O2 Flow Rate FiO2 10/20/19 12:57 12 Nasal Cannula 44.0 10/20/19 09:45 85 191/87 10/20/19 09:15 97 10/20/19 03:30 98.9 98.9 Labs Labs Laboratory Tests Test 10/19/19 20:42 10/19/19 23:19 10/20/19 01:25 10/20/19 14:49 White Blood Count 4.5 x10^3/uL (4.0-11.0) Red Blood Count 2.77 x10^6/uL (4.30-5.70) Hemoglobin 8.7 g/dL (13.0-17.5) Hematocrit 25.6 % (39.0-53.0) Mean Corpuscular Volume 93 fL (79-100) Mean Corpuscular Hemoglobin 31 pg (25-35) Mean Corpuscular Hemoglobin Concent 34 g/dL (31-37) Red Cell Distribution Width 16.8 % (11.5-14.5) Platelet Count 247 x10^3/uL (140-400) Neutrophils (%) (Auto) 64 % (31-73) Lymphocytes (%) (Auto) 19 % (24-48) Monocytes (%) (Auto) 8 % (0-9) Eosinophils (%) (Auto) 8 % (0-3) Basophils (%) (Auto) 1 % (0-3) Neutrophils # (Auto) 2.9 x10^3/uL (1.8-7.7) Lymphocytes # (Auto) 0.9 x10^3/uL (1.0-4.8) Monocytes # (Auto) 0.3 x10^3/uL (0.0-1.1) Eosinophils # (Auto) 0.3 x10^3/uL (0.0-0.7) Basophils # (Auto) 0.1 x10^3/uL (0.0-0.2) Prothrombin Time 16.2 SEC (11.7-14.0) Prothromb Time International Ratio 1.3 (0.8-1.1) Activated Partial Thromboplast Time 34 SEC (24-38) D-Dimer (Maru) 1.13 ug/mlFEU (0.00-0.50) Sodium Level 133 mmol/L (136-145) Potassium Level 4.5 mmol/L (3.5-5.1) Chloride Level 95 mmol/L (98-107) Carbon Dioxide Level 30 mmol/L (21-32) Anion Gap 8 (6-14) Blood Urea Nitrogen 37 mg/dL (8-26) Creatinine 7.2 mg/dL (0.7-1.3) Estimated GFR (Cockcroft-Gault) 8.0 BUN/Creatinine Ratio 5 (6-20) Glucose Level 372 mg/dL (70-99) Lactic Acid Level 1.5 mmol/L (0.4-2.0) Calcium Level 8.8 mg/dL (8.5-10.1) Total Bilirubin 0.5 mg/dL (0.2-1.0) Aspartate Amino Transf (AST/SGOT) 14 U/L (15-37) Alanine Aminotransferase (ALT/SGPT) 13 U/L (16-63) Alkaline Phosphatase 216 U/L (46-116) Troponin I Quantitative < 0.017 ng/mL (0.000-0.055) KS-Iyj-B-Type Natriuretic Peptide > 45210 pg/mL (0-124) Total Protein 8.6 g/dL (6.4-8.2) Albumin 3.0 g/dL (3.4-5.0) Albumin/Globulin Ratio 0.5 (1.0-1.7) Procalcitonin 0.55 ng/mL (0.00-0.10) Glucose (Fingerstick) 182 mg/dL (70-99) 156 mg/dL (70-99) 104 mg/dL (70-99) Laboratory Tests Test 10/19/19 20:42 10/19/19 23:19 10/20/19 01:25 10/20/19 14:49 White Blood Count 4.5 x10^3/uL (4.0-11.0) Red Blood Count 2.77 x10^6/uL (4.30-5.70) Hemoglobin 8.7 g/dL (13.0-17.5) Hematocrit 25.6 % (39.0-53.0) Mean Corpuscular Volume 93 fL (79-100) Mean Corpuscular Hemoglobin 31 pg (25-35) Mean Corpuscular Hemoglobin Concent 34 g/dL (31-37) Red Cell Distribution Width 16.8 % (11.5-14.5) Platelet Count 247 x10^3/uL (140-400) Neutrophils (%) (Auto) 64 % (31-73) Lymphocytes (%) (Auto) 19 % (24-48) Monocytes (%) (Auto) 8 % (0-9) Eosinophils (%) (Auto) 8 % (0-3) Basophils (%) (Auto) 1 % (0-3) Neutrophils # (Auto) 2.9 x10^3/uL (1.8-7.7) Lymphocytes # (Auto) 0.9 x10^3/uL (1.0-4.8) Monocytes # (Auto) 0.3 x10^3/uL (0.0-1.1) Eosinophils # (Auto) 0.3 x10^3/uL (0.0-0.7) Basophils # (Auto) 0.1 x10^3/uL (0.0-0.2) Prothrombin Time 16.2 SEC (11.7-14.0) Prothromb Time International Ratio 1.3 (0.8-1.1) Activated Partial Thromboplast Time 34 SEC (24-38) D-Dimer (Maru) 1.13 ug/mlFEU (0.00-0.50) Sodium Level 133 mmol/L (136-145) Potassium Level 4.5 mmol/L (3.5-5.1) Chloride Level 95 mmol/L (98-107) Carbon Dioxide Level 30 mmol/L (21-32) Anion Gap 8 (6-14) Blood Urea Nitrogen 37 mg/dL (8-26) Creatinine 7.2 mg/dL (0.7-1.3) Estimated GFR (Cockcroft-Gault) 8.0 BUN/Creatinine Ratio 5 (6-20) Glucose Level 372 mg/dL (70-99) Lactic Acid Level 1.5 mmol/L (0.4-2.0) Calcium Level 8.8 mg/dL (8.5-10.1) Total Bilirubin 0.5 mg/dL (0.2-1.0) Aspartate Amino Transf (AST/SGOT) 14 U/L (15-37) Alanine Aminotransferase (ALT/SGPT) 13 U/L (16-63) Alkaline Phosphatase 216 U/L (46-116) Troponin I Quantitative < 0.017 ng/mL (0.000-0.055) MI-Bwn-Q-Type Natriuretic Peptide > 92202 pg/mL (0-124) Total Protein 8.6 g/dL (6.4-8.2) Albumin 3.0 g/dL (3.4-5.0) Albumin/Globulin Ratio 0.5 (1.0-1.7) Procalcitonin 0.55 ng/mL (0.00-0.10) Glucose (Fingerstick) 182 mg/dL (70-99) 156 mg/dL (70-99) 104 mg/dL (70-99) Assessment/Plan Assessment/Plan IMP ESRD ACUTE HYPOXIC RESP FAILURE ACUTE ON CHRONIC DIASTOLIC CHF ANEMIA N/V-GASTROPARESIS DM II PLAN EMERGENT HD TODAY UF TO DW RULE OUT COVID FABIAN NEEDED MOR PADILLA MD Oct 20, 2019 15:48
[2019-10-20] MEDS: VANCOMYCIN PER PHARMACY MC PRN (17:02)
--- NOTE | 2019-10-20 17:05 | NUR ---
Pharmacy Vancomycin Dosing Note S:Consulted to monitor and dose vancomycin started 10/20/19. O:ELVIN MORFIN is a 54 year old M with HCAP . Height: 5 feet, 7 inches Weight: 62.2 kg [place] Body Weight: 66.10 Adjusted Body Weight: 64.54 Dosing Weight: Actual Other Antibiotics: ZOSYN 10/19 - LABS: Last BUN: 37 Last Creatinine: 7.2 Creatinine Clearance: HD MWF mL/min Last WBC: 4.5 Last Procalcitonin: 0.55 (ESRD/HD) Tmax (past 24 hours): 98.9 Microbiology: 10/19 BCX PENDING I/O: - Drug Levels: Last level: on at Last dose given 10/20/19 at 1530 Vancomycin Dosing: Loading Dose: x1 Dosing Weight: Actual Target Trough: 15-20 A: Based on: WEIGHT, HD STATUS, P: 1. GIVE Vancomycin 1500 mg IV One Time 2. Follow up Random level on 10/22/19 at 0600 3. Pharmacy will continue to monitor, follow and adjust therapy as needed. GLADYS AGUILAR Sonia, 10/20/19 [id number]
[2019-10-20] MEDS ORDERED: PROCHLORPERAZINE 10 MG/2 ML VIAL. IV PRN (18:15)
[2019-10-20] MEDS: PIPERACILLIN/TAZOBACTAM 2.25 GM in IV NORMAL SALINE 50ML 50 ML IV SCH (19:00)
[2019-10-20] MEDS: cloNIDine HCL 0.2 MG TABLET PO SCH (21:00)
[2019-10-20] MEDS: INSULIN GLARGINE SYRINGE. SQ SCH (21:00)
[2019-10-21] VITALS (7 sets, daily range): BP systolic 129–187; BP diastolic 56–80
[2019-10-21] MEDS: INSULIN LISPRO 300 UNITS/3 ML VIAL. SQ SCH ×8 (00:05→21:00)
[2019-10-21] MEDS: PIPERACILLIN/TAZOBACTAM 2.25 GM in IV NORMAL SALINE 50ML 50 ML IV SCH ×4 (00:52→17:38)
[2019-10-21] MEDS: HEPARIN for SUB-Q USE 5,000 UNIT/ML VIAL. SQ SCH ×4 (01:50→22:42)
[2019-10-21] MEDS: VITS A & D/LANOLIN TOPICAL OINTMENT 42GM TUBE. TP SCH ×3 (01:50→21:00)
[2019-10-21] MEDS: LACTOBACILLUS RHAMNOSUS GG 1 CAPSULE. PO SCH ×3 (01:50→22:30)
[2019-10-21] MEDS: POLYETHYLENE GLYCOL 3350 17 GM PACKET. PO SCH (09:00)
[2019-10-21] MEDS: CARVEDILOL 12.5 MG TABLET. PO SCH ×2 (09:31→16:36)
[2019-10-21] MEDS: ATORVASTATIN CALCIUM 40 MG TABLET. PO SCH (09:31)
[2019-10-21] MEDS: PANTOPRAZOLE 40 MG TABLET.DR. PO SCH (09:32)
[2019-10-21] MEDS: amLODIPine BESYLATE 10 MG TABLET PO SCH (09:32)
[2019-10-21] MEDS: LISINOPRIL 20 MG TABLET PO SCH (09:32)
[2019-10-21] MEDS: ASPIRIN ENTERIC COATED 81 MG TABLET.DR. PO SCH (09:32)
--- NOTE | 2019-10-21 11:04 | CONS ---
DATE OF CONSULTATION: 10/21/2019 ATTENDING PHYSICIAN: Dr. Champion. REASON FOR CONSULTATION: The patient seen in pulmonary consultation at the request of Dr. Champion for increasing shortness of breath. HISTORY OF PRESENT ILLNESS: The patient is a 54-year-old well known to me from previous hospitalization with respiratory failure, at one point required mechanical ventilation, presented with increasing shortness of breath for the last 5 days. He has not missed dialysis. He states that he is monitoring his salt intake. No fever, chills or night sweats. He was tested negative for SARS-CoV-2. He presents with the above. He underwent emergent hemodialysis. He now feels better. No productive cough. No nausea, vomiting, diarrhea. PAST MEDICAL HISTORY: Remarkable for end-stage renal disease, coronary artery disease, hypertension, hyperlipidemia, previous respiratory failure requiring mechanical ventilation secondary to acute pulmonary edema. He has a history of previous effusions and tracheomalacia. Obstructive sleep apnea, utilizing CPAP at home, diabetes, hyperparathyroidism. PAST SURGICAL HISTORY: No recent major surgeries. REVIEW OF SYSTEMS: As indicated above, otherwise, a 10-point system was reviewed and negative. CURRENT MEDICATION: List was reviewed. ALLERGIES: ALLERGIES TO MULTIPLE MEDICATIONS, PLEASE SEE THE LIST. PHYSICAL EXAMINATION: VITAL SIGNS: Stable. O2 saturation was greater than 92%, currently on 2 liters. HEENT: Eyes, the sclerae were nonicteric. NECK: Jugular venous distention was not elevated. No lymphadenopathy. CHEST: Full expansion. LUNGS: Adequate flow, no wheezes. CARDIOVASCULAR: Regular rate and rhythm with S1, S2, no S3. ABDOMEN: Soft, nontender, nondistended. EXTREMITIES: No clubbing or cyanosis. Evidence of bilateral BKA. LABORATORY DATA: Reviewed. Serology for SARS-CoV-2 was negative. Electrolytes were noted. BUN elevated, creatinine is elevated. Sodium was low. White count was normal. Chest x-ray once again revealing cardiomegaly with bilateral effusions and CHF. CT angiogram was performed. No evidence of pulmonary emboli. There were findings of alveolar pulmonary edema and bilateral pleural effusions along with tracheomalacia. IMPRESSION: 1. Acute hypoxemic respiratory failure. 2. Acute pulmonary edema. 3. End-stage renal disease. 4. Negative CT angiogram for pulmonary embolism. 5. Acute on chronic diastolic heart failure. 6. Gastroparesis. 7. Type 2 diabetes. 8. Obstructive sleep apnea. The patient had a sleep study approximately a month ago, was started on CPAP at 14 cm of water pressure. PLAN: 1. The patient underwent emergent hemodialysis yesterday. He now feels better. He is down to 2 liters of oxygen. 2. Continue home CPAP. 3. DVT and GI prophylaxis. 4. Follow Nephrology input. SOPHIA MCGOWAN MD DR: AMALIA/silviano JOB#: [id number] / [id number]
--- NOTE | 2019-10-21 11:47 | PDOC ---
Renal-Progress Notes Subjective Notes Notes FEELING BETTER History of Present Illness Hx of present illness STABLE Vitals Vitals Vital Signs Date Time Temp Pulse Resp B/P (MAP) Pulse Ox O2 Delivery O2 Flow Rate FiO2 10/21/19 11:08 98.5 93 17 129/69 (89) 97 Room Air 2.0 98.5 Weight Weight [ ] I.O. Intake and Output Intake and Output 10/21/19 07:00 Intake Total 100 ml Balance 100 ml Intake Oral 100 ml Labs Labs Laboratory Tests Test 10/20/19 14:49 10/20/19 17:57 10/20/19 21:12 10/20/19 23:57 Glucose (Fingerstick) 104 mg/dL (70-99) 102 mg/dL (70-99) 208 mg/dL (70-99) 197 mg/dL (70-99) Test 10/21/19 06:19 10/21/19 06:48 10/21/19 07:49 10/21/19 11:30 Glucose (Fingerstick) 49 mg/dL (70-99) 177 mg/dL (70-99) 142 mg/dL (70-99) 147 mg/dL (70-99) Micro Micro Microbiology 10/19/19 Blood Culture - Preliminary, Resulted NO GROWTH AFTER 1 DAY Review of Systems Constitutional: yes: weakness, alert, oriented Ears/Nose/Throat: Yes: no symptom reported Eyes: Yes: no symptom reported Pulmonary: Yes dyspnea Cardiovascular: Yes no symptom reported Gastrointestional: Yes: no symptom reported Genitourinary: Yes: no symptom reported Musculoskeletal: Yes: no symptom reported Skin: Yes no symptom reported Physical Exam General Appearance: no apparent distress Skin: warm Respiratory: bilateral CTA Heart: S1S2 Abdomen: soft, bowel sounds present Extremities: pulses present Neurology: alert, oriented Assessment Assessment IMP ESRD ACUTE HYPOXIC RESP FAILURE ACUTE ON CHRONIC DIASTOLIC CHF ANEMIA N/V-GASTROPARESIS DM II PLAN HD TOMORROW UF TO DW AND [facility] RULE OUT COVID FABIAN NEEDED MOR PADILLA MD Oct 21, 2019 11:47
[2019-10-21] MEDS: VANCOMYCIN PER PHARMACY MC PRN (13:05)
--- NOTE | 2019-10-21 13:59 | PDOC ---
PROGRESS NOTES Chief Complaint Chief Complaint A/P: Acute hypoxic respiratory failure - appears to be fluid overload, but given symptoms of illness will cover for HCAP. COVID 19 negative Intractable nausea and vomiting - 2/2 Gastroparesis - will cont meds, d/c'd IV reglan due to patient intolerance Pulmonary edema - given sudden onset shortness of breath after dialysis he is ruled out for COVID 19. More likely, however, is pulmonary edema related to fluid overload, CHF Pneumonia - likely gram negative given his risk factors, but with bilateral appearance could be MRSA, will cover with cefepime and vancomycin Anemia of CKD - stable, will monitor ESRD on HD - compensated, no immediate indication for dialysis. 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 Moderate obstructive sleep apnea, at an AHI of 22 per hour. FEN - Renal PPX - heparin FULL CODE Dispo - inpatient for hypoxia History of Present Illness History of Present Illness Mr Sarkar is a 53-year-old male w/ PMHx bilateral BKAs, diabetes, hypertension, migraines, ESRD on HD with h/o 2 failed kidney transplants who is well known to our service, admitted presents via EMS c/o severe shortness of breath. He notes 4 to 5-day history of shortness of breath. Patient is on dialysis and received a full dialysis session on 10/18/2019 Patient denies any chest pain. Patient denies any fever cough or exposure to coronavirus. Patient states shortness of breath is worse with exertion as well as laying down. He did have a sleep study 1 month ago and was started on 14 cm H2O at night nasal pillows. He notes worsening nasal congestion nausea with this therapy at home states he has been cleaning his device regularly, however it has been intolerable for him the last couple weeks. Patient was found with O2 saturation at 61% on room air. His O2 saturations improved 100% on 6 L, was decreased to 5 L. Chest x-ray with bilateral pleural effusions and infiltrate. CTPA performed revealing alveolar pulmonary edema with bilateral pleural effusions and tracheobronchomalacia. Labs reveal CBC, WBC 4.5, Hb 8.7, platelets 247, INR 1.3, sodium 133, K4.5, BUN 37, CR 7.2, glucose 372, procalcitonin elevated 0.55, BNP greater than 35,000, albumin 3. Admitted for further care Glucose 49 this morning. Weikert improved after dialysis. Still mildly hypoxic. COVID-19 test result returned negative. He is feeling weak overall. Very little appetite. Vitals Vitals Vital Signs Date Time Temp Pulse Resp B/P (MAP) Pulse Ox O2 Delivery O2 Flow Rate FiO2 10/21/19 11:08 98.5 93 17 129/69 (89) 97 Room Air 2.0 98.5 Physical Exam General: Alert, Oriented X3, Cooperative, mild distress Lungs: Clear Abdomen: Normal bowel sounds Extremities: No clubbing Skin: No breakdown Labs LABS Laboratory Tests Test 10/20/19 14:49 10/20/19 17:57 10/20/19 21:12 10/20/19 23:57 Glucose (Fingerstick) 104 mg/dL (70-99) 102 mg/dL (70-99) 208 mg/dL (70-99) 197 mg/dL (70-99) Test 10/21/19 06:19 10/21/19 06:48 10/21/19 07:49 10/21/19 11:30 Glucose (Fingerstick) 49 mg/dL (70-99) 177 mg/dL (70-99) 142 mg/dL (70-99) 147 mg/dL (70-99) Assessment and Plan Assessmemt and Plan Problems Medical Problems: (1) ESRD on dialysis Status: Chronic (2) Person under investigation for COVID-19 Status: Acute Comment Review of Relevant I have reviewed the following items nadiya (where applicable) has been applied. Labs Laboratory Tests Test 10/19/19 20:42 10/19/19 23:19 10/20/19 01:25 10/20/19 14:49 White Blood Count 4.5 x10^3/uL (4.0-11.0) Red Blood Count 2.77 x10^6/uL (4.30-5.70) Hemoglobin 8.7 g/dL (13.0-17.5) Hematocrit 25.6 % (39.0-53.0) Mean Corpuscular Volume 93 fL (79-100) Mean Corpuscular Hemoglobin 31 pg (25-35) Mean Corpuscular Hemoglobin Concent 34 g/dL (31-37) Red Cell Distribution Width 16.8 % (11.5-14.5) Platelet Count 247 x10^3/uL (140-400) Neutrophils (%) (Auto) 64 % (31-73) Lymphocytes (%) (Auto) 19 % (24-48) Monocytes (%) (Auto) 8 % (0-9) Eosinophils (%) (Auto) 8 % (0-3) Basophils (%) (Auto) 1 % (0-3) Neutrophils # (Auto) 2.9 x10^3/uL (1.8-7.7) Lymphocytes # (Auto) 0.9 x10^3/uL (1.0-4.8) Monocytes # (Auto) 0.3 x10^3/uL (0.0-1.1) Eosinophils # (Auto) 0.3 x10^3/uL (0.0-0.7) Basophils # (Auto) 0.1 x10^3/uL (0.0-0.2) Prothrombin Time 16.2 SEC (11.7-14.0) Prothromb Time International Ratio 1.3 (0.8-1.1) Activated Partial Thromboplast Time 34 SEC (24-38) D-Dimer (Maru) 1.13 ug/mlFEU (0.00-0.50) Sodium Level 133 mmol/L (136-145) Potassium Level 4.5 mmol/L (3.5-5.1) Chloride Level 95 mmol/L (98-107) Carbon Dioxide Level 30 mmol/L (21-32) Anion Gap 8 (6-14) Blood Urea Nitrogen 37 mg/dL (8-26) Creatinine 7.2 mg/dL (0.7-1.3) Estimated GFR (Cockcroft-Gault) 8.0 BUN/Creatinine Ratio 5 (6-20) Glucose Level 372 mg/dL (70-99) Lactic Acid Level 1.5 mmol/L (0.4-2.0) Calcium Level 8.8 mg/dL (8.5-10.1) Total Bilirubin 0.5 mg/dL (0.2-1.0) Aspartate Amino Transf (AST/SGOT) 14 U/L (15-37) Alanine Aminotransferase (ALT/SGPT) 13 U/L (16-63) Alkaline Phosphatase 216 U/L (46-116) Troponin I Quantitative < 0.017 ng/mL (0.000-0.055) SN-Fjb-T-Type Natriuretic Peptide > 34904 pg/mL (0-124) Total Protein 8.6 g/dL (6.4-8.2) Albumin 3.0 g/dL (3.4-5.0) Albumin/Globulin Ratio 0.5 (1.0-1.7) Procalcitonin 0.55 ng/mL (0.00-0.10) Coronavirus (PCR) Not detected (Not Detected) Glucose (Fingerstick) 182 mg/dL (70-99) 156 mg/dL (70-99) 104 mg/dL (70-99) Test 10/20/19 17:57 10/20/19 21:12 10/20/19 23:57 10/21/19 06:19 Glucose (Fingerstick) 102 mg/dL (70-99) 208 mg/dL (70-99) 197 mg/dL (70-99) 49 mg/dL (70-99) Test 10/21/19 06:48 10/21/19 07:49 10/21/19 11:30 Glucose (Fingerstick) 177 mg/dL (70-99) 142 mg/dL (70-99) 147 mg/dL (70-99) Laboratory Tests Test 10/20/19 14:49 10/20/19 17:57 10/20/19 21:12 10/20/19 23:57 Glucose (Fingerstick) 104 mg/dL (70-99) 102 mg/dL (70-99) 208 mg/dL (70-99) 197 mg/dL (70-99) Test 10/21/19 06:19 10/21/19 06:48 10/21/19 07:49 10/21/19 11:30 Glucose (Fingerstick) 49 mg/dL (70-99) 177 mg/dL (70-99) 142 mg/dL (70-99) 147 mg/dL (70-99) Microbiology 10/19/19 Blood Culture - Preliminary, Resulted NO GROWTH AFTER 1 DAY Medications Current Medications Ceftriaxone Sodium (Rocephin) 1 gm 1X ONCE IVP Last administered on 10/19/19at 23:25; Start 10/19/19 at 22:30; Stop 10/19/19 at 22:31; Status DC Azithromycin 500 mg/Sodium Chloride 250 ml @ 250 mls/hr 1X ONCE IV ; Start 10/19/19 at 22:00; Stop 10/19/19 at 22:59; Status UNV Azithromycin 250 ml @ 250 mls/hr 1X ONCE IV Last administered on 10/19/19at 23:26; Start 10/19/19 at 22:30; Stop 10/19/19 at 23:29; Status DC Ondansetron HCl (Zofran) 4 mg PRN Q8HRS PRN IV NAUSEA/VOMITING 1ST CHOICE Last administered on 10/19/19at 23:21; Start 10/19/19 at 22:15; Stop 10/20/19 at 08:04; Status DC Iohexol (Omnipaque 350 Mg/ml) 90 ml 1X ONCE IV Last administered on 10/19/19at 23:41; Start 10/19/19 at 23:00; Stop 10/19/19 at 23:01; Status DC Info (CONTRAST GIVEN -- Rx MONITORING) 1 each PRN DAILY PRN MC SEE COMMENTS; Start 10/19/19 at 22:45; Stop 10/21/19 at 22:44 Ketorolac Tromethamine (Toradol 15mg Vial) 15 mg 1X ONCE IVP Last administered on 10/19/19at 23:22; Start 10/19/19 at 23:30; Stop 10/19/19 at 23:31; Status DC Hydromorphone HCl (Dilaudid) 0.5 mg 1X ONCE IV Last administered on 10/20/19at 00:38; Start 10/20/19 at 00:30; Stop 10/20/19 at 00:31; Status DC Ondansetron HCl (Zofran) 4 mg PRN Q4HRS PRN IV NAUSEA/VOMITING 1ST CHOICE; Start 10/20/19 at 08:15 Acetaminophen (Tylenol) 650 mg PRN Q4HRS PRN PO TEMP OVER 100.4F OR MILD PAIN; Start 10/20/19 at 08:15 Amlodipine Besylate (Norvasc) 10 mg DAILY PO Last administered on 10/21/19at 09:32; Start 10/20/19 at 09:30 Aspirin (Ecotrin) 162 mg DAILYWBKFT PO Last administered on 10/21/19 09:32; Start 10/20/19 at 09:30 Atorvastatin Calcium (Lipitor) 40 mg DAILY PO Last administered on 10/21/19 09:31; Start 10/20/19 at 09:30 Clonidine HCl (Catapres) 0.4 mg QHS PO ; Start 10/20/19 at 21:00 Acetaminophen/ Hydrocodone Bitart (Lortab 5/325) 1 tab PRN Q4HRS PRN PO PAIN Last administered on 10/20/19 11:02; Start 10/20/19 at 08:15 Insulin Glargine (Lantus Syringe) 4 unit HS SQ Last administered on 10/20/19 21:00; Start 10/20/19 at 21:00 Lactobacillus Rhamnosus (Culturelle) 1 cap BID PO Last administered on 10/21/19 09:32; Start 10/20/19 at 09:30 Lisinopril (Prinivil) 20 mg DAILY PO Last administered on 10/21/19 09:32; Start 10/20/19 at 09:30 Metoclopramide HCl (Reglan) 2.5 mg QIDACHS PO ; Start 10/20/19 at 11:30; Stop 10/20/19 at 18:18; Status DC Polyethylene Glycol (miraLAX PACKET) 17 gm DAILY PO Last administered on 10/20/19 09:42; Start 10/20/19 at 09:30 Vitamin A/Vitamin D (Vitamin A & D Ointment) 1 marlin BID TP ; Start 10/20/19 at 09:30 Carvedilol (Coreg) 25 mg BIDWMEALS PO Last administered on 10/21/19 09:31; Start 10/20/19 at 09:30 Insulin Human Lispro (HumaLOG) 3 units TIDWMEALS SQ ; Start 10/20/19 at 12:00 Pantoprazole Sodium (Protonix) 40 mg DAILYAC PO Last administered on 10/21/19 09:32; Start 10/20/19 at 09:30 Insulin Human Lispro (HumaLOG) 0-5 UNITS TIDACHC SQ Last administered on 10/21/19 00:05; Start 10/20/19 at 11:30 Dextrose (Dextrose 50%-Water Syringe) 12.5 gm PRN Q15MIN PRN IV SEE COMMENTS Last administered on 10/21/19at 06:28; Start 10/20/19 at 08:15 Heparin Sodium (Porcine) (Heparin Sodium) 5,000 unit Q8HRS SQ Last administered on 10/21/19at 06:37; Start 10/20/19 at 14:00 Sodium Chloride 1,000 ml @ 1,000 mls/hr Q1H PRN IV hypotension; Start 10/20/19 at 09:53; Stop 10/20/19 at 15:52; Status DC Albumin Human 200 ml @ 200 mls/hr 1X PRN PRN IV Hypotension; Start 10/20/19 at 10:00; Stop 10/20/19 at 15:59; Status DC Diphenhydramine HCl (Benadryl) 25 mg 1X PRN PRN IV ITCHING; Start 10/20/19 at 10:00; Stop 10/21/19 at 09:59; Status DC Diphenhydramine HCl (Benadryl) 25 mg 1X PRN PRN IV ITCHING; Start 10/20/19 at 10:00; Stop 10/21/19 at 09:59; Status DC Sodium Chloride (Normal Saline Flush) 10 ml 1X PRN PRN IV AP catheter pack; Start 10/20/19 at 10:00; Stop 10/21/19 at 09:59; Status DC Sodium Chloride (Normal Saline Flush) 10 ml 1X PRN PRN IV UX LEAD catheter pack; Start 10/20/19 at 10:00; Stop 10/21/19 at 09:59; Status DC Sodium Chloride 1,000 ml @ 400 mls/hr Q2H30M PRN IV PATENCY; Start 10/20/19 at 09:53; Stop 10/20/19 at 21:52; Status DC Info (PHARMACY MONITORING -- do not chart) 1 each PRN DAILY PRN MC SEE COMMENTS; Start 10/20/19 at 10:00 Info (PHARMACY MONITORING -- do not chart) 1 each PRN DAILY PRN MC SEE COMMENTS; Start 10/20/19 at 10:00; Stop 10/20/19 at 10:07; Status DC Piperacillin Sod/ Tazobactam Sod (Zosyn Per Pharmacy) 1 each PRN DAILY PRN MC SEE COMMENTS; Start 10/20/19 at 10:15 Piperacillin Sod/ Tazobactam Sod 2.25 gm/Sodium Chloride 50 ml @ 100 mls/hr Q8HRS IV ; Start 10/20/19 at 14:00; Stop 10/20/19 at 16:53; Status DC Vancomycin HCl (Vanco Per Pharmacy) 1 each PRN DAILY PRN MC SEE COMMENTS Last administered on 10/21/19at 13:05; Start 10/20/19 at 10:15 Vancomycin HCl 1.25 gm/Sodium Chloride 250 ml @ 166.667 mls/hr 1X ONCE IV ; Start 10/20/19 at 10:15; Stop 10/20/19 at 10:14; Status DC Piperacillin Sod/ Tazobactam Sod 2.25 gm/Sodium Chloride 50 ml @ 100 mls/hr O NCE ONCE IV Last administered on 10/20/19at 14:45; Start 10/20/19 at 10:30; Stop 10/20/19 at 10:59; Status DC Vancomycin HCl 1.5 gm/Sodium Chloride 500 ml @ 250 mls/hr 1X ONCE IV Last administered on 10/20/19at 15:39; Start 10/20/19 at 11:00; Stop 10/20/19 at 12:59; Status DC Hydromorphone HCl (Dilaudid) 0.5 mg 1X ONCE IV Last administered on 10/20/19at 12:57; Start 10/20/19 at 11:15; Stop 10/20/19 at 11:16; Status DC Vancomycin HCl (Vancomycin Random Level) 1 each 1X ONCE MC ; Start 10/22/19 at 06:00; Stop 10/22/19 at 06:01 Piperacillin Sod/ Tazobactam Sod 2.25 gm/Sodium Chloride 50 ml @ 100 mls/hr Q8HRS IV ; Start 10/20/19 at 22:00; Stop 10/20/19 at 16:56; Status DC Piperacillin Sod/ Tazobactam Sod 2.25 gm/Sodium Chloride 50 ml @ 100 mls/hr Q6HRS IV Last administered on 10/21/19at 12:54; Start 10/20/19 at 19:00 Prochlorperazine Edisylate (Compazine) 10 mg PRN Q6HRS PRN IV NAUSEA/VOMITING; Start 10/20/19 at 18:15 Active Scripts Active Zithromax (Azithromycin) 250 Mg Tablet 1 Pkg PO UD Doxycycline Hyclate 100 Mg Tablet 1 Tab PO BID 5 Days Culturelle (Lactobacillus Rhamnosus Gg) 1 Each Cap.sprink 1 Cap PO BID 30 Days Tylenol (Acetaminophen) 325 Mg Tablet 650 Mg PO PRN Q4HRS PRN 30 Days Aspirin Ec (Aspirin) 81 Mg Tablet.dr 162 Mg PO DAILYWBKFT 30 Days Lisinopril 40 Mg Tablet 20 Mg PO DAILY 30 Days Metoclopramide Hcl 5 Mg Tablet 2.5 Mg PO QIDACHS 30 Days Vitamin A & D Ointment (Vits A & D/White Pet/Lanolin) 56.7 Gm Oint...g. 1 Marlin TP BID 30 Days Humalog (Insulin Lispro) 100 Unit/1 Ml Insuln.pen 7 Units SQ TIDWMEALS 30 Days Polyethylene Glycol 3350 17 Gm Powd.pack 17 Gm PO DAILY Amlodipine Besylate 10 Mg Tablet 10 Mg PO DAILY MDD 1 Reported [place] 5-325 Tablet (Acetaminophen/Hydrocodone Bitart) 1 Each Tablet 1 Tab PO PRN Q4HRS PRN Lantus (Insulin Glargine,Hum.rec.anlog) 100 Unit/1 Ml Vial 4 Unit SQ HS Atorvastatin Calcium 40 Mg Tablet 1 Tab PO DAILY Omeprazole 20 Mg Tablet. 1 Tab PO DAILY Carvedilol 25 Mg Tablet 25 Mg PO BIDWMEALS Clonidine Hcl 0.2 Mg Tablet 0.4 Mg PO QHS Vitals/I & O Vital Sign - Last 24 Hours 10/20/19 10/20/19 10/20/19 10/20/19 14:15 17:53 17:59 18:15 Pulse 82 82 87 86 Resp 13 20 B/P (MAP) 170/75 (106) 165/74 (104) 165/74 155/68 (97) Pulse Ox 100 100 97 O2 Delivery Nasal Cannula Room Air O2 Flow Rate 4.0 10/20/19 10/20/19 10/20/19 10/20/19 21:00 21:12 21:40 22:15 Pulse 86 86 86 84 Resp 20 13 17 B/P (MAP) 149/63 167/72 (103) 148/65 (92) 149/63 (91) Pulse Ox 95 96 98 O2 Delivery Nasal Cannula Nasal Cannula Nasal Cannula O2 Flow Rate 2.0 2.0 2.0 10/21/19 10/21/19 10/21/19 10/21/19 00:30 01:00 03:00 07:20 Temp 99.0 99.1 98.2 99.0 99.1 98.2 Pulse 91 90 102 Resp 18 18 18 B/P (MAP) 158/56 (90) 146/60 (88) 187/80 (115) Pulse Ox 93 99 95 O2 Delivery Room Air Nasal Cannula Room Air Room Air O2 Flow Rate 2.0 2.0 2.0 10/21/19 10/21/19 10/21/19 10/21/19 08:00 09:31 09:32 09:32 Pulse 102 102 102 B/P (MAP) 187/80 187/80 187/80 O2 Delivery Nasal Cannula O2 Flow Rate 2.0 10/21/19 11:08 Temp 98.5 98.5 Pulse 93 Resp 17 B/P (MAP) 129/69 (89) Pulse Ox 97 O2 Delivery Room Air O2 Flow Rate 2.0 Intake and Output 10/20/19 10/20/19 10/21/19 15:00 23:00 07:00 Intake Total 100 ml Balance 100 ml Justicifation of Admission Dx: Justifications for Admission: Justification of Admission Dx: Yes RAN JOE MD Oct 21, 2019 13:59
--- NOTE | 2019-10-21 16:46 | NUR ---
SW following. Reviewed chart and spoke with RN. Pt from home. Pt on IV Vancomycin. Pt does out-patient dialysis on T,R,S at [facility], , (fax). JON to continue following.
[2019-10-21] MEDS: HYDROcodone/APAP 5/325MG 1 TAB TABLET PO PRN (19:41)
[2019-10-21] MEDS: cloNIDine HCL 0.2 MG TABLET PO SCH (22:30)
[2019-10-21] MEDS: fentaNYL PF VIAL 100 MCG/2 ML VIAL IVP PRN (22:31)
[2019-10-21] MEDS: INSULIN GLARGINE SYRINGE. SQ SCH (22:41)
[2019-10-22] MEDS: PIPERACILLIN/TAZOBACTAM 2.25 GM in IV NORMAL SALINE 50ML 50 ML IV SCH ×2 (00:10→06:09)
[2019-10-22 03:00] VITALS: BP 126/71
[2019-10-22] MEDS: fentaNYL PF VIAL 100 MCG/2 ML VIAL IVP PRN ×5 (04:27→21:15)
[2019-10-22 06:00] LABS: CALCIUM 8.7 mg/dL (8.5-10.1); CREATININE 7.4 mg/dL (0.7-1.3); GFR 7.8; POTASSIUM 4.5 mmol/L (3.5-5.1)
[2019-10-22] MEDS ORDERED: VANCOMYCIN RANDOM LEVEL. MC ONE (06:00)
[2019-10-22] MEDS: HEPARIN for SUB-Q USE 5,000 UNIT/ML VIAL. SQ SCH ×3 (06:14→21:26)
[2019-10-22 07:00] VITALS: BP 151/47
[2019-10-22] MEDS: POLYETHYLENE GLYCOL 3350 17 GM PACKET. PO SCH (08:10)
[2019-10-22] MEDS: HYDROcodone/APAP 5/325MG 1 TAB TABLET PO PRN (08:12)
[2019-10-22] MEDS: PANTOPRAZOLE 40 MG TABLET.DR. PO SCH (08:17)
[2019-10-22] MEDS: amLODIPine BESYLATE 10 MG TABLET PO SCH (08:17)
[2019-10-22] MEDS: LACTOBACILLUS RHAMNOSUS GG 1 CAPSULE. PO SCH ×2 (08:17→21:14)
[2019-10-22] MEDS: LISINOPRIL 20 MG TABLET PO SCH (08:17)
[2019-10-22] MEDS: ATORVASTATIN CALCIUM 40 MG TABLET. PO SCH (08:18)
[2019-10-22] MEDS: CARVEDILOL 12.5 MG TABLET. PO SCH ×2 (08:18→17:10)
[2019-10-22] MEDS: VITS A & D/LANOLIN TOPICAL OINTMENT 42GM TUBE. TP SCH ×2 (08:19→21:00)
--- NOTE | 2019-10-22 08:35 | PDOC ---
PROGRESS NOTES Chief Complaint Chief Complaint A/P: Acute hypoxic respiratory failure - appears to be fluid overload, but given symptoms of illness will cover for HCAP. COVID 19 negative Intractable nausea and vomiting - 2/2 Gastroparesis - will cont meds, d/c'd IV reglan due to patient intolerance Pulmonary edema - given sudden onset shortness of breath after dialysis he is ruled out for COVID 19. More likely, however, is pulmonary edema related to fluid overload, CHF Pneumonia - likely gram negative given his risk factors, but with bilateral appearance could be MRSA, will cover with cefepime and vancomycin Anemia of CKD - stable, will monitor ESRD on HD - compensated, no immediate indication for dialysis. 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 Moderate obstructive sleep apnea, at an AHI of 22 per hour. FEN - Renal PPX - heparin FULL CODE Dispo - inpatient for hypoxia History of Present Illness History of Present Illness Mr Sarkar is a 53-year-old male w/ PMHx bilateral BKAs, diabetes, hypertension, migraines, ESRD on HD with h/o 2 failed kidney transplants who is well known to our service, admitted presents via EMS c/o severe shortness of breath. He notes 4 to 5-day history of shortness of breath. Patient is on dialysis and received a full dialysis session on 10/18/2019 Patient denies any chest pain. Patient denies any fever cough or exposure to coronavirus. Patient states shortness of breath is worse with exertion as well as laying down. He did have a sleep study 1 month ago and was started on 14 cm H2O at night nasal pillows. He notes worsening nasal congestion nausea with this therapy at home states he has been cleaning his device regularly, however it has been intolerable for him the last couple weeks. Patient was found with O2 saturation at 61% on room air. His O2 saturations improved 100% on 6 L, was decreased to 5 L. Chest x-ray with bilateral pleural effusions and infiltrate. CTPA performed revealing alveolar pulmonary edema with bilateral pleural effusions and tracheobronchomalacia. Labs reveal CBC, WBC 4.5, Hb 8.7, platelets 247, INR 1.3, sodium 133, K4.5, BUN 37, CR 7.2, glucose 372, procalcitonin elevated 0.55, BNP greater than 35,000, albumin 3. Admitted for further care 721: Glucose 49 this morning. [place] improved after dialysis. Still mildly hypoxic. COVID-19 test result returned negative. He is feeling weak overall. Very little appetite. Overnight did not wear CPAP, O2 saturation 70% this morning off oxygen. He notes that he has been checking his own pulse ox at home over the past 2 weeks and it has been low and he has been "toughing it out". Transition to oral antibiotics and steroids today. Plan to return to his normal dialysis schedule will await dialysis tomorrow for fluid stability and 6-minute walk prior to discharge. Vitals Vitals Vital Signs Date Time Temp Pulse Resp B/P (MAP) Pulse Ox O2 Delivery O2 Flow Rate FiO2 10/22/19 05:00 98 Nasal Cannula 2.0 10/22/19 03:00 98.1 80 17 126/71 (89) 98.1 Physical Exam General: Alert, Oriented X3, Cooperative, mild distress Lungs: Clear Abdomen: Normal bowel sounds Extremities: No clubbing Skin: No breakdown Labs LABS Laboratory Tests Test 10/21/19 11:30 10/21/19 16:01 10/21/19 20:29 10/22/19 05:00 Glucose (Fingerstick) 147 mg/dL (70-99) 125 mg/dL (70-99) 219 mg/dL (70-99) Sodium Level 137 mmol/L (136-145) Potassium Level 4.5 mmol/L (3.5-5.1) Chloride Level 98 mmol/L (98-107) Carbon Dioxide Level 26 mmol/L (21-32) Anion Gap 13 (6-14) Blood Urea Nitrogen 37 mg/dL (8-26) Creatinine 7.4 mg/dL (0.7-1.3) Estimated GFR (Cockcroft-Gault) 7.8 Glucose Level 287 mg/dL (70-99) Calcium Level 8.7 mg/dL (8.5-10.1) Random Vancomycin Level 26.7 mcg/mL Test 10/22/19 07:52 Glucose (Fingerstick) 222 mg/dL (70-99) Assessment and Plan Assessmemt and Plan Problems Medical Problems: (1) ESRD on dialysis Status: Chronic (2) Person under investigation for COVID-19 Status: Acute Comment Review of Relevant I have reviewed the following items nadiya (where applicable) has been applied. Labs Laboratory Tests Test 10/20/19 14:49 10/20/19 17:57 10/20/19 21:12 10/20/19 23:57 Glucose (Fingerstick) 104 mg/dL (70-99) 102 mg/dL (70-99) 208 mg/dL (70-99) 197 mg/dL (70-99) Test 10/21/19 06:19 10/21/19 06:48 10/21/19 07:49 10/21/19 11:30 Glucose (Fingerstick) 49 mg/dL (70-99) 177 mg/dL (70-99) 142 mg/dL (70-99) 147 mg/dL (70-99) Test 10/21/19 16:01 10/21/19 20:29 10/22/19 05:00 10/22/19 07:52 Glucose (Fingerstick) 125 mg/dL (70-99) 219 mg/dL (70-99) 222 mg/dL (70-99) Sodium Level 137 mmol/L (136-145) Potassium Level 4.5 mmol/L (3.5-5.1) Chloride Level 98 mmol/L (98-107) Carbon Dioxide Level 26 mmol/L (21-32) Anion Gap 13 (6-14) Blood Urea Nitrogen 37 mg/dL (8-26) Creatinine 7.4 mg/dL (0.7-1.3) Estimated GFR (Cockcroft-Gault) 7.8 Glucose Level 287 mg/dL (70-99) Calcium Level 8.7 mg/dL (8.5-10.1) Random Vancomycin Level 26.7 mcg/mL Laboratory Tests Test 10/21/19 11:30 10/21/19 16:01 10/21/19 20:29 10/22/19 05:00 Glucose (Fingerstick) 147 mg/dL (70-99) 125 mg/dL (70-99) 219 mg/dL (70-99) Sodium Level 137 mmol/L (136-145) Potassium Level 4.5 mmol/L (3.5-5.1) Chloride Level 98 mmol/L (98-107) Carbon Dioxide Level 26 mmol/L (21-32) Anion Gap 13 (6-14) Blood Urea Nitrogen 37 mg/dL (8-26) Creatinine 7.4 mg/dL (0.7-1.3) Estimated GFR (Cockcroft-Gault) 7.8 Glucose Level 287 mg/dL (70-99) Calcium Level 8.7 mg/dL (8.5-10.1) Random Vancomycin Level 26.7 mcg/mL Test 10/22/19 07:52 Glucose (Fingerstick) 222 mg/dL (70-99) Microbiology 10/19/19 Blood Culture - Preliminary, Resulted NO GROWTH AFTER 2 DAYS Medications Current Medications Ceftriaxone Sodium (Rocephin) 1 gm 1X ONCE IVP Last administered on 10/19/19at 23:25; Start 10/19/19 at 22:30; Stop 10/19/19 at 22:31; Status DC Azithromycin 500 mg/Sodium Chloride 250 ml @ 250 mls/hr 1X ONCE IV ; Start 10/19/19 at 22:00; Stop 10/19/19 at 22:59; Status UNV Azithromycin 250 ml @ 250 mls/hr 1X ONCE IV Last administered on 10/19/19at 23:26; Start 10/19/19 at 22:30; Stop 10/19/19 at 23:29; Status DC Ondansetron HCl (Zofran) 4 mg PRN Q8HRS PRN IV NAUSEA/VOMITING 1ST CHOICE Last administered on 10/19/19at 23:21; Start 10/19/19 at 22:15; Stop 10/20/19 at 08:04; Status DC Iohexol (Omnipaque 350 Mg/ml) 90 ml 1X ONCE IV Last administered on 10/19/19at 23:41; Start 10/19/19 at 23:00; Stop 10/19/19 at 23:01; Status DC Info (CONTRAST GIVEN -- Rx MONITORING) 1 each PRN DAILY PRN MC SEE COMMENTS; Start 10/19/19 at 22:45; Stop 10/21/19 at 22:44; Status DC Ketorolac Tromethamine (Toradol 15mg Vial) 15 mg 1X ONCE IVP Last administered on 10/19/19at 23:22; Start 10/19/19 at 23:30; Stop 10/19/19 at 23:31; Status DC Hydromorphone HCl (Dilaudid) 0.5 mg 1X ONCE IV Last administered on 10/20/19 00:38; Start 10/20/19 at 00:30; Stop 10/20/19 at 00:31; Status DC Ondansetron HCl (Zofran) 4 mg PRN Q4HRS PRN IV NAUSEA/VOMITING 1ST CHOICE; Start 10/20/19 at 08:15 Acetaminophen (Tylenol) 650 mg PRN Q4HRS PRN PO TEMP OVER 100.4F OR MILD PAIN; Start 10/20/19 at 08:15 Amlodipine Besylate (Norvasc) 10 mg DAILY PO Last administered on 10/21/19 09:32; Start 10/20/19 at 09:30 Aspirin (Ecotrin) 162 mg DAILYWBKFT PO Last administered on 10/21/19 09:32; Start 10/20/19 at 09:30 Atorvastatin Calcium (Lipitor) 40 mg DAILY PO Last administered on 10/21/19 09:31; Start 10/20/19 at 09:30 Clonidine HCl (Catapres) 0.4 mg QHS PO Last administered on 10/21/19 22:30; Start 10/20/19 at 21:00 Acetaminophen/ Hydrocodone Bitart (Lortab 5/325) 1 tab PRN Q4HRS PRN PO PAIN Last administered on 10/21/19 19:41; Start 10/20/19 at 08:15 Insulin Glargine (Lantus Syringe) 4 unit HS SQ Last administered on 10/21/19 22:41; Start 10/20/19 at 21:00 Lactobacillus Rhamnosus (Culturelle) 1 cap BID PO Last administered on 10/21/19 22:30; Start 10/20/19 at 09:30 Lisinopril (Prinivil) 20 mg DAILY PO Last administered on 10/21/19 09:32; S tart 10/20/19 at 09:30 Metoclopramide HCl (Reglan) 2.5 mg QIDACHS PO ; Start 10/20/19 at 11:30; Stop 10/20/19 at 18:18; Status DC Polyethylene Glycol (miraLAX PACKET) 17 gm DAILY PO Last administered on 7/20/20at 09:42; Start 10/20/19 at 09:30 Vitamin A/Vitamin D (Vitamin A & D Ointment) 1 marlin BID TP ; Start 10/20/19 at 09:30 Carvedilol (Coreg) 25 mg BIDWMEALS PO Last administered on 10/21/19at 16:36; Start 10/20/19 at 09:30 Insulin Human Lispro (HumaLOG) 3 units TIDWMEALS SQ ; Start 10/20/19 at 12:00 Pantoprazole Sodium (Protonix) 40 mg DAILYAC PO Last administered on 10/21/19at 09:32; Start 10/20/19 at 09:30 Insulin Human Lispro (HumaLOG) 0-5 UNITS TIDACHC SQ Last administered on 10/21/19at 00:05; Start 10/20/19 at 11:30 Dextrose (Dextrose 50%-Water Syringe) 12.5 gm PRN Q15MIN PRN IV SEE COMMENTS Last administered on 10/21/19at 06:28; Start 10/20/19 at 08:15 Heparin Sodium (Porcine) (Heparin Sodium) 5,000 unit Q8HRS SQ Last administered on 10/22/19at 06:14; Start 10/20/19 at 14:00 Sodium Chloride 1,000 ml @ 1,000 mls/hr Q1H PRN IV hypotension; Start 10/20/19 at 09:53; Stop 10/20/19 at 15:52; Status DC Albumin Human 200 ml @ 200 mls/hr 1X PRN PRN IV Hypotension; Start 10/20/19 at 10:00; Stop 10/20/19 at 15:59; Status DC Diphenhydramine HCl (Benadryl) 25 mg 1X PRN PRN IV ITCHING; Start 10/20/19 at 10:00; Stop 10/21/19 at 09:59; Status DC Diphenhydramine HCl (Benadryl) 25 mg 1X PRN PRN IV ITCHING; Start 10/20/19 at 10:00; Stop 10/21/19 at 09:59; Status DC Sodium Chloride (Normal Saline Flush) 10 ml 1X PRN PRN IV AP catheter pack; Start 10/20/19 at 10:00; Stop 10/21/19 at 09:59; Status DC Sodium Chloride (Normal Saline Flush) 10 ml 1X PRN PRN IV [employer] catheter pack; Start 10/20/19 at 10:00; Stop 10/21/19 at 09:59; Status DC Sodium Chloride 1,000 ml @ 400 mls/hr Q2H30M PRN IV PATENCY; Start 10/20/19 at 09:53; Stop 10/20/19 at 21:52; Status DC Info (PHARMACY MONITORING -- do not chart) 1 each PRN DAILY PRN MC SEE COMMENTS; Start 10/20/19 at 10:00 Info (PHARMACY MONITORING -- do not chart) 1 each PRN DAILY PRN MC SEE COMMENTS; Start 10/20/19 at 10:00; Stop 10/20/19 at 10:07; Status DC Piperacillin Sod/ Tazobactam Sod (Zosyn Per Pharmacy) 1 each PRN DAILY PRN MC SEE COMMENTS; Start 10/20/19 at 10:15 Piperacillin Sod/ Tazobactam Sod 2.25 gm/Sodium Chloride 50 ml @ 100 mls/hr Q8HRS IV ; Start 10/20/19 at 14:00; Stop 10/20/19 at 16:53; Status DC Vancomycin HCl (Vanco Per Pharmacy) 1 each PRN DAILY PRN MC SEE COMMENTS Last administered on 10/21/19at 13:05; Start 10/20/19 at 10:15 Vancomycin HCl 1.25 gm/Sodium Chloride 250 ml @ 166.667 mls/hr 1X ONCE IV ; Start 10/20/19 at 10:15; Stop 10/20/19 at 10:14; Status DC Piperacillin Sod/ Tazobactam Sod 2.25 gm/Sodium Chloride 50 ml @ 100 mls/hr ONCE ONCE IV Last administered on 10/20/19at 14:45; Start 10/20/19 at 10:30; Stop 10/20/19 at 10:59; Status DC Vancomycin HCl 1.5 gm/Sodium Chloride 500 ml @ 250 mls/hr 1X ONCE IV Last administered on 10/20/19at 15:39; Start 10/20/19 at 11:00; Stop 10/20/19 at 12:59; Status DC Hydromorphone HCl (Dilaudid) 0.5 mg 1X ONCE IV Last administered on 10/20/19at 12:57; Start 10/20/19 at 11:15; Stop 10/20/19 at 11:16; Status DC Vancomycin HCl (Vancomycin Random Level) 1 each 1X ONCE MC Last administered on 10/22/19at 06:00; Start 10/22/19 at 06:00; Stop 10/22/19 at 06:01; Status DC Piperacillin Sod/ Tazobactam Sod 2.25 gm/Sodium Chloride 50 ml @ 100 mls/hr Q8HRS IV ; Start 10/20/19 at 22:00; Stop 10/20/19 at 16:56; Status DC Piperacillin Sod/ Tazobactam Sod 2.25 gm/Sodium Chloride 50 ml @ 100 mls/hr Q6HRS IV Last administered on 10/22/19at 06:09; Start 10/20/19 at 19:00 Prochlorperazine Edisylate (Compazine) 10 mg PRN Q6HRS PRN IV NAUSEA/VOMITING; Start 10/20/19 at 18:15 Fentanyl Citrate (Fentanyl 2ml Vial) 25 mcg PRN Q4HRS PRN IVP HEADACHE Last administered on 10/22/19at 04:27; Start 10/21/19 at 21:15 Active Scripts Active Zithromax (Azithromycin) 250 Mg Tablet 1 Pkg PO UD Doxycycline Hyclate 100 Mg Tablet 1 Tab PO BID 5 Days Culturelle (Lactobacillus Rhamnosus Gg) 1 Each Cap.sprink 1 Cap PO BID 30 Days Tylenol (Acetaminophen) 325 Mg Tablet 650 Mg PO PRN Q4HRS PRN 30 Days Aspirin Ec (Aspirin) 81 Mg Tablet.dr 162 Mg PO DAILYWBKFT 30 Days Lisinopril 40 Mg Tablet 20 Mg PO DAILY 30 Days Metoclopramide Hcl 5 Mg Tablet 2.5 Mg PO QIDACHS 30 Days Vitamin A & D Ointment (Vits A & D/White Pet/Lanolin) 56.7 Gm Oint...g. 1 Marlin TP BID 30 Days Humalog (Insulin Lispro) 100 Unit/1 Ml Insuln.pen 7 Units SQ TIDWMEALS 30 Days Polyethylene Glycol 3350 17 Gm Powd.pack 17 Gm PO DAILY Amlodipine Besylate 10 Mg Tablet 10 Mg PO DAILY MDD 1 Reported [place] 5-325 Tablet (Acetaminophen/Hydrocodone Bitart) 1 Each Tablet 1 Tab PO PRN Q4HRS PRN Lantus (Insulin Glargine,Hum.rec.anlog) 100 Unit/1 Ml Vial 4 Unit SQ HS Atorvastatin Calcium 40 Mg Tablet 1 Tab PO DAILY Omeprazole 20 Mg Tablet.dr 1 Tab PO DAILY Carvedilol 25 Mg Tablet 25 Mg PO BIDWMEALS Clonidine Hcl 0.2 Mg Tablet 0.4 Mg PO QHS Vitals/I & O Vital Sign - Last 24 Hours 10/21/19 10/21/19 10/21/19 10/21/19 09:31 09:32 09:32 11:08 Temp 98.5 98.5 Pulse 102 102 102 93 Resp 17 B/P (MAP) 187/80 187/80 187/80 129/69 (89) Pulse Ox 97 O2 Delivery Room Air O2 Flow Rate 2.0 10/21/19 10/21/19 10/21/19 10/21/19 15:07 16:36 19:00 19:00 Temp 98.8 98.8 98.8 98.8 98.8 98.8 Pulse 93 93 91 91 Resp 17 17 B/P (MAP) 155/65 (95) 155/65 150/59 (89) 150/59 (89) Pulse Ox 98 97 97 O2 Delivery Room Air Room Air Room Air O2 Flow Rate 2.0 2.0 2.0 10/21/19 10/21/19 10/21/19 10/21/19 19:41 20:00 20:53 22:30 Pulse 91 B/P (MAP) 150/59 Pulse Ox 98 98 O2 Delivery Nasal Cannula Nasal Cannula Nasal Cannula O2 Flow Rate 2.0 2.0 2.0 10/21/19 10/21/19 10/21/19 10/22/19 22:31 23:00 23:24 03:00 Temp 98.7 98.1 98.7 98.1 Pulse 93 80 Resp 17 B/P (MAP) 134/61 (85) 126/71 (89) Pulse Ox 98 98 98 98 O2 Delivery Nasal Cannula Room Air Nasal Cannula Room Air O2 Flow Rate 2.0 2.0 2.0 2.0 10/22/19 10/22/19 04:27 05:00 Pulse Ox 98 98 O2 Delivery Nasal Cannula Nasal Cannula O2 Flow Rate 2.0 2.0 Intake and Output 7/21/20 7/21/20 7/22/20 15:00 23:00 07:00 Intake Total 120 ml 250 ml 100 ml Balance 120 ml 250 ml 100 ml Justicifation of Admission Dx: Justifications for Admission: Justification of Admission Dx: Yes RAN JOE MD Oct 22, 2019 08:35
[2019-10-22] MEDS: ASPIRIN ENTERIC COATED 81 MG TABLET.DR. PO SCH (08:38)
[2019-10-22] MEDS: INSULIN LISPRO 300 UNITS/3 ML VIAL. SQ SCH ×7 (08:45→21:00)
--- NOTE | 2019-10-22 09:29 | PDOC ---
PULMONARY PROGRESS NOTES Subjective Patient not more short of air currently requiring oxygen Vitals Vital Signs Date Time Temp Pulse Resp B/P (MAP) Pulse Ox O2 Delivery O2 Flow Rate FiO2 10/22/19 08:42 Nasal Cannula 2.0 10/22/19 08:18 79 151/47 10/22/19 07:00 97.8 18 97 97.8 ROS: No Nausea, No Chest Pain, No Abdominal Pain, No Increase Cough General: Alert, No acute distress Lungs: Clear Cardiovascular: S1, S2 Abdomen: Soft, Non-tender Neuro Exam: Alert Extremities: Other (Status post bilateral BKA) Labs Laboratory Tests Test 10/20/19 14:49 10/20/19 17:57 10/20/19 21:12 10/20/19 23:57 Glucose (Fingerstick) 104 mg/dL (70-99) 102 mg/dL (70-99) 208 mg/dL (70-99) 197 mg/dL (70-99) Test 10/21/19 06:19 10/21/19 06:48 10/21/19 07:49 10/21/19 11:30 Glucose (Fingerstick) 49 mg/dL (70-99) 177 mg/dL (70-99) 142 mg/dL (70-99) 147 mg/dL (70-99) Test 10/21/19 16:01 10/21/19 20:29 10/22/19 05:00 10/22/19 07:52 Glucose (Fingerstick) 125 mg/dL (70-99) 219 mg/dL (70-99) 222 mg/dL (70-99) Sodium Level 137 mmol/L (136-145) Potassium Level 4.5 mmol/L (3.5-5.1) Chloride Level 98 mmol/L (98-107) Carbon Dioxide Level 26 mmol/L (21-32) Anion Gap 13 (6-14) Blood Urea Nitrogen 37 mg/dL (8-26) Creatinine 7.4 mg/dL (0.7-1.3) Estimated GFR (Cockcroft-Gault) 7.8 Glucose Level 287 mg/dL (70-99) Calcium Level 8.7 mg/dL (8.5-10.1) Random Vancomycin Level 26.7 mcg/mL Laboratory Tests Test 10/21/19 11:30 10/21/19 16:01 10/21/19 20:29 10/22/19 05:00 Glucose (Fingerstick) 147 mg/dL (70-99) 125 mg/dL (70-99) 219 mg/dL (70-99) Sodium Level 137 mmol/L (136-145) Potassium Level 4.5 mmol/L (3.5-5.1) Chloride Level 98 mmol/L (98-107) Carbon Dioxide Level 26 mmol/L (21-32) Anion Gap 13 (6-14) Blood Urea Nitrogen 37 mg/dL (8-26) Creatinine 7.4 mg/dL (0.7-1.3) Estimated GFR (Cockcroft-Gault) 7.8 Glucose Level 287 mg/dL (70-99) Calcium Level 8.7 mg/dL (8.5-10.1) Random Vancomycin Level 26.7 mcg/mL Test 10/22/19 07:52 Glucose (Fingerstick) 222 mg/dL (70-99) Medications Active Scripts Medications Dose Route/Sig Max Daily Dose Days Date Category Zithromax (Azithromycin) 250 Mg Tablet 1 Pkg PO UD 09/29/19 Rx Doxycycline Hyclate 100 Mg Tablet 1 Tab PO BID 08/18/19 Rx Culturelle (Lactobacillus Rhamnosus Gg) 1 Each Cap.sprink 1 Cap PO BID 30 07/25/19 Rx Tylenol (Acetaminophen) 325 Mg Tablet 650 Mg PO PRN Q4HRS PRN 30 07/25/19 Rx Aspirin Ec (Aspirin) 81 Mg Tablet.dr 162 Mg PO DAILYWBKFT 07/25/19 Rx Lisinopril 40 Mg Tablet 20 Mg PO DAILY 30 07/25/19 Rx Metoclopramide Hcl 5 Mg Tablet 2.5 Mg PO QIDACHS 30 02/17/19 Rx [place] 5-325 Tablet (Acetaminophen/Hydrocodone Bitart) 1 Each Tablet 1 Tab PO PRN Q4HRS PRN 12/12/18 Reported Lantus (Insulin Glargine,Hum.rec.anlog) 100 Unit/1 Ml Vial 4 Unit SQ HS 12/09/18 Reported Atorvastatin Calcium 40 Mg Tablet 1 Tab PO DAILY 11/04/18 Reported Omeprazole 20 Mg Tablet.dr 1 Tab PO DAILY 11/04/18 Reported Vitamin A & D Ointment (Vits A & D/White Pet/Lanolin) 56.7 Gm Oint...g. 1 Marlin TP BID 30 08/28/18 Rx Humalog (Insulin Lispro) 100 Unit/1 Ml Insuln.pen 7 Units SQ TIDWMEALS 30 08/28/18 Rx Polyethylene Glycol 3350 17 Gm Powd.pack 17 Gm PO DAILY 04/23/18 Rx Carvedilol 25 Mg Tablet 25 Mg PO BIDWMEALS 04/17/18 Reported Clonidine Hcl 0.2 Mg Tablet 0.4 Mg PO QHS 04/17/18 Reported Amlodipine Besylate 10 Mg Tablet 10 Mg PO DAILY MDD 1 02/20/18 Rx Impression . IMPRESSION: 1. Acute hypoxemic respiratory failure. 2. Acute pulmonary edema. 3. End-stage renal disease. 4. Negative CT angiogram for pulmonary embolism. 5. Acute on chronic diastolic heart failure. 6. Gastroparesis. 7. Type 2 diabetes. 8. Obstructive sleep apnea. The patient had a sleep study approximately a month ago, was started on CPAP at 14 cm of water pressure. Plan . According to the patient when he came in he was not over his dry weight Suspect some of the chest x-ray findings related to an inflammatory response, acute lung injury Continue oxygen supplementation Follow nephrology input SOPHIA MCGOWAN MD Oct 22, 2019 09:29
[2019-10-22] MEDS: DOXYCYCLINE HYCLATE 100 MG TABLET PO SCH ×2 (10:12→21:14)
[2019-10-22 11:00] VITALS: BP 144/47
--- NOTE | 2019-10-22 11:31 | PDOC ---
Renal-Progress Notes Subjective Notes Notes LESS SOB History of Present Illness Hx of present illness STABLE Vitals Vitals Vital Signs Date Time Temp Pulse Resp B/P (MAP) Pulse Ox O2 Delivery O2 Flow Rate FiO2 10/22/19 09:15 Nasal Cannula 2.0 10/22/19 08:18 79 151/47 10/22/19 07:00 97.8 18 97 97.8 Weight Weight [ ] I.O. Intake and Output Intake and Output 10/22/19 07:00 Intake Total 470 ml Balance 470 ml Intake Oral 470 ml Labs Labs Laboratory Tests Test 10/21/19 16:01 10/21/19 20:29 10/22/19 05:00 10/22/19 07:52 Glucose (Fingerstick) 125 mg/dL (70-99) 219 mg/dL (70-99) 222 mg/dL (70-99) Sodium Level 137 mmol/L (136-145) Potassium Level 4.5 mmol/L (3.5-5.1) Chloride Level 98 mmol/L (98-107) Carbon Dioxide Level 26 mmol/L (21-32) Anion Gap 13 (6-14) Blood Urea Nitrogen 37 mg/dL (8-26) Creatinine 7.4 mg/dL (0.7-1.3) Estimated GFR (Cockcroft-Gault) 7.8 Glucose Level 287 mg/dL (70-99) Calcium Level 8.7 mg/dL (8.5-10.1) Random Vancomycin Level 26.7 mcg/mL Test 10/22/19 11:19 Glucose (Fingerstick) 117 mg/dL (70-99) Micro Micro Microbiology 10/19/19 Blood Culture - Preliminary, Resulted NO GROWTH AFTER 2 DAYS Review of Systems Constitutional: yes: weakness, alert, oriented Ears/Nose/Throat: Yes: no symptom reported Eyes: Yes: no symptom reported Pulmonary: Yes dyspnea Cardiovascular: Yes no symptom reported Gastrointestional: Yes: no symptom reported Genitourinary: Yes: no symptom reported Musculoskeletal: Yes: no symptom reported Skin: Yes no symptom reported Physical Exam General Appearance: no apparent distress Skin: warm Respiratory: bilateral CTA Heart: S1S2 Abdomen: soft, bowel sounds present Extremities: pulses present Neurology: alert, oriented Assessment Assessment IMP ESRD-TTS ACUTE HYPOXIC RESP FAILURE ACUTE ON CHRONIC DIASTOLIC CHF ANEMIA N/V-GASTROPARESIS DM II PLAN HD TOMORROW UF TO DW AND CHALLENGE RULE OUT COVID FABIAN NEEDED MOR PADILLA MD Oct 22, 2019 11:31
[2019-10-22] MEDS: predniSONE 20 MG TABLET PO SCH (14:49)
[2019-10-22 15:00] VITALS: BP 127/58
--- NOTE | 2019-10-22 17:00 | NUR ---
SW following. Reviewed chart and spoke with RN. Pt from home. Pt will likely discharge on 10/23 to home. Pt on IV Vancomycin. Pt does out-patient dialysis on T,R,S at [facility], , (fax). SW to continue following.
[2019-10-22 19:06] VITALS: BP 145/71
[2019-10-22] MEDS: cloNIDine HCL 0.2 MG TABLET PO SCH (21:14)
[2019-10-22] MEDS: INSULIN GLARGINE SYRINGE. SQ SCH (21:27)
[2019-10-22 22:58] VITALS: BP 156/66
[2019-10-23 02:57] VITALS: BP 149/65
[2019-10-23] MEDS: HYDROcodone/APAP 5/325MG 1 TAB TABLET PO PRN (03:03)
[2019-10-23] MEDS: PANTOPRAZOLE 40 MG TABLET.DR. PO SCH (05:28)
[2019-10-23] MEDS: fentaNYL PF VIAL 100 MCG/2 ML VIAL IVP PRN ×2 (05:29→15:39)
[2019-10-23] MEDS: HEPARIN for SUB-Q USE 5,000 UNIT/ML VIAL. SQ SCH ×2 (05:34→15:47)
[2019-10-23 07:55] VITALS: BP 141/54
[2019-10-23] MEDS: INSULIN LISPRO 300 UNITS/3 ML VIAL. SQ SCH ×6 (08:43→18:08)
[2019-10-23] MEDS ORDERED: IV NORMAL SALINE 1000ML BAG 1,000 ML IV PRN ×2 (08:46)
[2019-10-23] MEDS ORDERED: diphenhydrAMINE 50 MG/ML VIAL IV PRN ×2 (09:00)
[2019-10-23] MEDS ORDERED: DIALYSIS PATIENT. MC PRN (09:00)
--- NOTE | 2019-10-23 09:14 | PDOC ---
PROGRESS NOTES Chief Complaint Chief Complaint A/P: Acute hypoxic respiratory failure - appears to be fluid overload, but given symptoms of illness will cover for HCAP. COVID 19 negative Intractable nausea and vomiting - 2/2 Gastroparesis - will cont meds, d/c'd IV reglan due to patient intolerance Pulmonary edema - given sudden onset shortness of breath after dialysis he is ruled out for COVID 19. More likely, however, is pulmonary edema related to fluid overload, CHF Pneumonia - likely gram negative given his risk factors, but with bilateral appearance could be MRSA, will cover with cefepime and vancomycin Anemia of CKD - stable, will monitor ESRD on HD - compensated, no immediate indication for dialysis. 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 Moderate obstructive sleep apnea, at an AHI of 22 per hour. FEN - Renal PPX - heparin FULL CODE Dispo - inpatient for hypoxia History of Present Illness History of Present Illness Mr Sarkar is a 53-year-old male w/ PMHx bilateral BKAs, diabetes, hypertension, migraines, ESRD on HD with h/o 2 failed kidney transplants who is well known to our service, admitted presents via EMS c/o severe shortness of breath. He notes 4 to 5-day history of shortness of breath. Patient is on dialysis and received a full dialysis session on 10/18/2019 Patient denies any chest pain. Patient denies any fever cough or exposure to coronavirus. Patient states shortness of breath is worse with exertion as well as laying down. He did have a sleep study 1 month ago and was started on 14 cm H2O at night nasal pillows. He notes worsening nasal congestion nausea with this therapy at home states he has been cleaning his device regularly, however it has been intolerable for him the last couple weeks. Patient was found with O2 saturation at 61% on room air. His O2 saturations improved 100% on 6 L, was decreased to 5 L. Chest x-ray with bilateral pleural effusions and infiltrate. CTPA performed revealing alveolar pulmonary edema with bilateral pleural effusions and tracheobronchomalacia. Labs reveal CBC, WBC 4.5, Hb 8.7, platelets 247, INR 1.3, sodium 133, K4.5, BUN 37, CR 7.2, glucose 372, procalcitonin elevated 0.55, BNP greater than 35,000, albumin 3. Admitted for further care 10/20: Glucose 49 this morning. [place] improved after dialysis. Still mildly hypoxic. COVID-19 test result returned negative. He is feeling weak overall. Very little appetite. 10/21: Overnight did not wear CPAP, O2 saturation 70% this morning off oxygen. He notes that he has been checking his own pulse ox at home over the past 2 weeks and it has been low and he has been "toughing it out". Transition to oral antibiotics and steroids today. Afebrile, on 2 L oxygen. He is significantly less short of breath. Seen on dialysis. He is a bit anxious to get discharged home. Plan to return to his normal dialysis schedule will await dialysis tomorrow for fluid stability and 6-minute walk prior to discharge. Vitals Vitals Vital Signs Date Time Temp Pulse Resp B/P (MAP) Pulse Ox O2 Delivery O2 Flow Rate FiO2 10/23/19 07:55 97.7 82 17 141/54 (83) 99 Nasal Cannula 2.0 97.7 Physical Exam General: Alert, Oriented X3, Cooperative, mild distress Lungs: Clear Abdomen: Normal bowel sounds Extremities: No clubbing Skin: No breakdown Labs LABS Laboratory Tests Test 10/22/19 11:19 10/22/19 16:42 10/22/19 20:11 10/23/19 07:40 Glucose (Fingerstick) 117 mg/dL (70-99) 129 mg/dL (70-99) 178 mg/dL (70-99) 262 mg/dL (70-99) Assessment and Plan Assessmemt and Plan Problems Medical Problems: (1) ESRD on dialysis Status: Chronic (2) Person under investigation for COVID-19 Status: Acute Comment Review of Relevant I have reviewed the following items nadiya (where applicable) has been applied. Labs Laboratory Tests Test 10/21/19 11:30 10/21/19 16:01 10/21/19 20:29 10/22/19 05:00 Glucose (Fingerstick) 147 mg/dL (70-99) 125 mg/dL (70-99) 219 mg/dL (70-99) Sodium Level 137 mmol/L (136-145) Potassium Level 4.5 mmol/L (3.5-5.1) Chloride Level 98 mmol/L (98-107) Carbon Dioxide Level 26 mmol/L (21-32) Anion Gap 13 (6-14) Blood Urea Nitrogen 37 mg/dL (8-26) Creatinine 7.4 mg/dL (0.7-1.3) Estimated GFR (Cockcroft-Gault) 7.8 Glucose Level 287 mg/dL (70-99) Calcium Level 8.7 mg/dL (8.5-10.1) Random Vancomycin Level 26.7 mcg/mL Test 10/22/19 07:52 10/22/19 11:19 10/22/19 16:42 10/22/19 20:11 Glucose (Fingerstick) 222 mg/dL (70-99) 117 mg/dL (70-99) 129 mg/dL (70-99) 178 mg/dL (70-99) Test 10/23/19 07:40 Glucose (Fingerstick) 262 mg/dL (70-99) Laboratory Tests Test 10/22/19 11:19 10/22/19 16:42 10/22/19 20:11 10/23/19 07:40 Glucose (Fingerstick) 117 mg/dL (70-99) 129 mg/dL (70-99) 178 mg/dL (70-99) 262 mg/dL (70-99) Microbiology 10/19/19 Blood Culture - Preliminary, Resulted NO GROWTH AFTER 3 DAYS Medications Current Medications Ceftriaxone Sodium (Rocephin) 1 gm 1X ONCE IVP Last administered on 10/19/19at 23:25; Start 10/19/19 at 22:30; Stop 10/19/19 at 22:31; Status DC Azithromycin 500 mg/Sodium Chloride 250 ml @ 250 mls/hr 1X ONCE IV ; Start 10/19/19 at 22:00; Stop 10/19/19 at 22:59; Status UNV Azithromycin 250 ml @ 250 mls/hr 1X ONCE IV Last administered on 10/19/19at 23:26; Start 10/19/19 at 22:30; Stop 10/19/19 at 23:29; Status DC Ondansetron HCl (Zofran) 4 mg PRN Q8HRS PRN IV NAUSEA/VOMITING 1ST CHOICE Last administered on 10/19/19at 23:21; Start 10/19/19 at 22:15; Stop 10/20/19 at 08:04; Status DC Iohexol (Omnipaque 350 Mg/ml) 90 ml 1X ONCE IV Last administered on 10/19/19at 23:41; Start 10/19/19 at 23:00; Stop 10/19/19 at 23:01; Status DC Info (CONTRAST GIVEN -- Rx MONITORING) 1 each PRN DAILY PRN MC SEE COMMENTS; Start 10/19/19 at 22:45; Stop 10/21/19 at 22:44; Status DC Ketorolac Tromethamine (Toradol 15mg Vial) 15 mg 1X ONCE IVP Last administered on 10/19/19at 23:22; Start 10/19/19 at 23:30; Stop 10/19/19 at 23:31; Status DC Hydromorphone HCl (Dilaudid) 0.5 mg 1X ONCE IV Last administered on 10/20/19at 00:38; Start 10/20/19 at 00:30; Stop 10/20/19 at 00:31; Status DC Ondansetron HCl (Zofran) 4 mg PRN Q4HRS PRN IV NAUSEA/VOMITING 1ST CHOICE; Start 10/20/19 at 08:15 Acetaminophen (Tylenol) 650 mg PRN Q4HRS PRN PO TEMP OVER 100.4F OR MILD PAIN; Start 10/20/19 at 08:15 Amlodipine Besylate (Norvasc) 10 mg DAILY PO Last administered on 10/22/19at 08:17; Start 10/20/19 at 09:30 Aspirin (Ecotrin) 162 mg DAILYWBKFT PO Last administered on 10/22/19at 08:38; Start 10/20/19 at 09:30 Atorvastatin Calcium (Lipitor) 40 mg DAILY PO Last administered on 10/22/19at 08:18; Start 10/20/19 at 09:30 Clonidine HCl (Catapres) 0.4 mg QHS PO Last administered on 10/22/19at 21:14; Start 10/20/19 at 21:00 Acetaminophen/ Hydrocodone Bitart (Lortab 5/325) 1 tab PRN Q4HRS PRN PO MODERATE - SEVERE PAIN Last administered on 10/23/19at 03:03; Start 10/20/19 at 08:15 Insulin Glargine (Lantus Syringe) 4 unit HS SQ Last administered on 10/22/19 21:27; Start 10/20/19 at 21:00 Lactobacillus Rhamnosus (Culturelle) 1 cap BID PO Last administered on 10/22/19at 21:14; Start 10/20/19 at 09:30 Lisinopril (Prinivil) 20 mg DAILY PO Last administered on 10/22/19 08:17; Start 10/20/19 at 09:30 Metoclopramide HCl (Reglan) 2.5 mg QIDACHS PO ; Start 10/20/19 at 11:30; Stop 10/20/19 at 18:18; Status DC Polyethylene Glycol (miraLAX PACKET) 17 gm DAILY PO Last administered on 10/22/19 08:10; Start 10/20/19 at 09:30 Vitamin A/Vitamin D (Vitamin A & D Ointment) 1 marlin BID TP ; Start 10/20/19 at 09:30 Carvedilol (Coreg) 25 mg BIDWMEALS PO Last administered on 10/22/19at 17:10; Start 10/20/19 at 09:30 Insulin Human Lispro (HumaLOG) 3 units TIDWMEALS SQ Last administered on 10/23/19 08:43; Start 10/20/19 at 12:00 Pantoprazole Sodium (Protonix) 40 mg DAILYAC PO Last administered on 10/23/19 05:28; Start 10/20/19 at 09:30 Insulin Human Lispro (HumaLOG) 0-5 UNITS TIDACHC SQ Last administered on 10/23/19at 08:43; Start 10/20/19 at 11:30 Dextrose (Dextrose 50%-Water Syringe) 12.5 gm PRN Q15MIN PRN IV SEE COMMENTS Last administered on 10/21/19at 06:28; Start 10/20/19 at 08:15 Heparin Sodium (Porcine) (Heparin Sodium) 5,000 unit Q8HRS SQ Last administered on 10/23/19 05:34; Start 10/20/19 at 14:00 Sodium Chloride 1,000 ml @ 1,000 mls/hr Q1H PRN IV hypotension; Start 10/20/19 at 09:53; Stop 10/20/19 at 15:52; Status DC Albumin Human 200 ml @ 200 mls/hr 1X PRN PRN IV Hypotension; Start 10/20/19 at 10:00; Stop 10/20/19 at 15:59; Status DC Diphenhydramine HCl (Benadryl) 25 mg 1X PRN PRN IV ITCHING; Start 10/20/19 at 10:00; Stop 10/21/19 at 09:59; Status DC Diphenhydramine HCl (Benadryl) 25 mg 1X PRN PRN IV ITCHING; Start 10/20/19 at 10:00; Stop 10/21/19 at 09:59; Status DC Sodium Chloride (Normal Saline Flush) 10 ml 1X PRN PRN IV AP catheter pack; Start 10/20/19 at 10:00; Stop 10/21/19 at 09:59; Status DC Sodium Chloride (Normal Saline Flush) 10 ml 1X PRN PRN IV [employer] catheter pack; Start 10/20/19 at 10:00; Stop 10/21/19 at 09:59; Status DC Sodium Chloride 1,000 ml @ 400 mls/hr Q2H30M PRN IV PATENCY; Start 10/20/19 at 09:53; Stop 10/20/19 at 21:52; Status DC Info (PHARMACY MONITORING -- do not chart) 1 each PRN DAILY PRN MC SEE COMMENTS; Start 10/20/19 at 10:00 Info (PHARMACY MONITORING -- do not chart) 1 each PRN DAILY PRN MC SEE COMMENTS; Start 10/20/19 at 10:00; Stop 10/20/19 at 10:07; Status DC Piperacillin Sod/ Tazobactam Sod (Zosyn Per Pharmacy) 1 each PRN DAILY PRN MC SEE COMMENTS; Start 10/20/19 at 10:15; Stop 10/22/19 at 08:36; Status DC Piperacillin Sod/ Tazobactam Sod 2.25 gm/Sodium Chloride 50 ml @ 100 mls/hr Q8HRS IV ; Start 10/20/19 at 14:00; Stop 10/20/19 at 16:53; Status DC Vancomycin HCl (Vanco Per Pharmacy) 1 each PRN DAILY PRN MC SEE COMMENTS Last administered on 10/21/19at 13:05; Start 10/20/19 at 10:15; Stop 10/22/19 at 08:36; Status DC Vancomycin HCl 1.25 gm/Sodium Chloride 250 ml @ 166.667 mls/hr 1X ONCE IV ; Start 10/20/19 at 10:15; Stop 10/20/19 at 10:14; Status DC Piperacillin Sod/ Tazobactam Sod 2.25 gm/Sodium Chloride 50 ml @ 100 mls/hr ONCE ONCE IV Last administered on 10/20/19at 14:45; Start 10/20/19 at 10:30; Stop 10/20/19 at 10:59; Status DC Vancomycin HCl 1.5 gm/Sodium Chloride 500 ml @ 250 mls/hr 1X ONCE IV Last administered on 10/20/19at 15:39; Start 10/20/19 at 11:00; Stop 10/20/19 at 12:59; Status DC Hydromorphone HCl (Dilaudid) 0.5 mg 1X ONCE IV Last administered on 10/20/19at 12:57; Start 10/20/19 at 11:15; Stop 10/20/19 at 11:16; Status DC Vancomycin HCl (Vancomycin Random Level) 1 each 1X ONCE MC Last administered on 10/22/19at 06:00; Start 10/22/19 at 06:00; Stop 10/22/19 at 08:36; Status DC Piperacillin Sod/ Tazobactam Sod 2.25 gm/Sodium Chloride 50 ml @ 100 mls/hr Q8HRS IV ; Start 10/20/19 at 22:00; Stop 10/20/19 at 16:56; Status DC Piperacillin Sod/ Tazobactam Sod 2.25 gm/Sodium Chloride 50 ml @ 100 mls/hr Q6HRS IV Last administered on 10/22/19at 06:09; Start 10/20/19 at 19:00; Stop 10/22/19 at 08:36; Status DC Prochlorperazine Edisylate (Compazine) 10 mg PRN Q6HRS PRN IV NAUSEA/VOMITING; Start 10/20/19 at 18:15 Fentanyl Citrate (Fentanyl 2ml Vial) 25 mcg PRN Q4HRS PRN IVP HEADACHE Last administered on 10/23/19at 05:29; Start 10/21/19 at 21:15 Doxycycline Hyclate (Vibra-Tab) 100 mg BID PO Last administered on 10/22/19at 21:14; Start 10/22/19 at 09:00 Prednisone (Prednisone) 20 mg DAILY PO Last administered on 10/22/19at 14:49; Start 10/22/19 at 13:45 Sodium Chloride 1,000 ml @ 1,000 mls/hr Q1H PRN IV hypotension; Start 10/23/19 at 08:46; Stop 10/23/19 at 14:45 Diphenhydramine HCl (Benadryl) 25 mg 1X PRN PRN IV ITCHING; Start 10/23/19 at 09:00; Stop 10/24/19 at 08:59 Diphenhydramine HCl (Benadryl) 25 mg 1X PRN PRN IV ITCHING; Start 10/23/19 at 09:00; Stop 10/24/19 at 08:59 Sodium Chloride 1,000 ml @ 400 mls/hr Q2H30M PRN IV PATENCY; Start 10/23/19 at 08:46; Stop 10/23/19 at 20:45 Info (PHARMACY MONITORING -- do not chart) 1 each PRN DAILY PRN MC SEE COMMENTS; Start 10/23/19 at 09:00 Active Scripts Active Zithromax (Azithromycin) 250 Mg Tablet 1 Pkg PO UD Doxycycline Hyclate 100 Mg Tablet 1 Tab PO BID 5 Days Culturelle (Lactobacillus Rhamnosus Gg) 1 Each Cap.sprink 1 Cap PO BID 30 Days Tylenol (Acetaminophen) 325 Mg Tablet 650 Mg PO PRN Q4HRS PRN 30 Days Aspirin Ec (Aspirin) 81 Mg Tablet.dr 162 Mg PO DAILYWBKFT 30 Days Lisinopril 40 Mg Tablet 20 Mg PO DAILY 30 Days Metoclopramide Hcl 5 Mg Tablet 2.5 Mg PO QIDACHS 30 Days Vitamin A & D Ointment (Vits A & D/White Pet/Lanolin) 56.7 Gm Oint...g. 1 [place]lin TP BID 30 Days Humalog (Insulin Lispro) 100 Unit/1 Ml Insuln.pen 7 Units SQ TIDWMEALS 30 Days Polyethylene Glycol 3350 17 Gm Powd.pack 17 Gm PO DAILY Amlodipine Besylate 10 Mg Tablet 10 Mg PO DAILY MDD 1 Reported [place] 5-325 Tablet (Acetaminophen/Hydrocodone Bitart) 1 Each Tablet 1 Tab PO PRN Q4HRS PRN Lantus (Insulin Glargine,Hum.rec.anlog) 100 Unit/1 Ml Vial 4 Unit SQ HS Atorvastatin Calcium 40 Mg Tablet 1 Tab PO DAILY Omeprazole 20 Mg Tablet.dr 1 Tab PO DAILY Carvedilol 25 Mg Tablet 25 Mg PO BIDWMEALS Clonidine Hcl 0.2 Mg Tablet 0.4 Mg PO QHS Vitals/I & O Vital Sign - Last 24 Hours 10/22/19 10/22/19 10/22/19 10/22/19 09:15 09:15 11:00 12:37 Temp 97.7 97.7 Pulse 75 Resp 18 B/P (MAP) 144/47 (79) Pulse Ox 90 O2 Delivery Nasal Cannula Nasal Cannula Room Air Nasal Cannula O2 Flow Rate 2.0 2.0 2.0 10/22/19 10/22/19 10/22/19 10/22/19 13:10 15:00 16:50 17:10 Temp 98.0 98.0 Pulse 79 79 Resp 18 B/P (MAP) 127/58 (81) 127/58 Pulse Ox 93 O2 Delivery Nasal Cannula Nasal Cannula Nasal Cannula O2 Flow Rate 2.0 3.0 2.0 10/22/19 10/22/19 10/22/19 10/22/19 17:10 19:06 20:00 21:14 Temp 98.7 98.7 Pulse 90 90 Resp 23 B/P (MAP) 145/71 (95) 145/71 Pulse Ox 95 O2 Delivery Nasal Cannula Nasal Cannula Nasal Cannula O2 Flow Rate 2.0 2.0 2.0 10/22/19 10/22/19 10/22/19 10/23/19 21:15 21:45 22:58 02:57 Temp 98.4 98.0 98.4 98.0 Pulse 93 89 Resp 18 18 17 17 B/P (MAP) 156/66 (96) 149/65 (93) Pulse Ox 95 95 98 99 O2 Delivery Nasal Cannula Nasal Cannula Nasal Cannula Nasal Cannula O2 Flow Rate 2.0 2.0 2.0 2.0 10/23/19 10/23/19 10/23/19 10/23/19 03:03 04:09 05:29 05:59 Resp 18 18 18 18 Pulse Ox 98 98 98 98 O2 Delivery Nasal Cannula Nasal Cannula Nasal Cannula Nasal Cannula O2 Flow Rate 2.0 2.0 2.0 2.0 10/23/19 07:55 Temp 97.7 97.7 Pulse 82 Resp 17 B/P (MAP) 141/54 (83) Pulse Ox 99 O2 Delivery Nasal Cannula O2 Flow Rate 2.0 Intake and Output 10/22/19 10/22/19 10/23/19 15:00 23:00 07:00 Intake Total 250 ml 150 ml Output Total 0 ml Balance 250 ml 150 ml Justicifation of Admission Dx: Justifications for Admission: Justification of Admission Dx: Yes RAN JOE MD Oct 23, 2019 09:14
--- NOTE | 2019-10-23 09:23 | PDOC ---
PULMONARY PROGRESS NOTES Subjective Patient not more short of air currently requiring oxygen Vitals Vital Signs Date Time Temp Pulse Resp B/P (MAP) Pulse Ox O2 Delivery O2 Flow Rate FiO2 10/23/19 07:55 97.7 82 17 141/54 (83) 99 Nasal Cannula 2.0 97.7 ROS: No Nausea, No Chest Pain, No Abdominal Pain, No Increase Cough General: Alert, No acute distress Lungs: Clear Cardiovascular: S1, S2 Abdomen: Soft, Non-tender Neuro Exam: Alert Extremities: Other (Status post bilateral BKA) Labs Laboratory Tests Test 10/21/19 11:30 10/21/19 16:01 10/21/19 20:29 10/22/19 05:00 Glucose (Fingerstick) 147 mg/dL (70-99) 125 mg/dL (70-99) 219 mg/dL (70-99) Sodium Level 137 mmol/L (136-145) Potassium Level 4.5 mmol/L (3.5-5.1) Chloride Level 98 mmol/L (98-107) Carbon Dioxide Level 26 mmol/L (21-32) Anion Gap 13 (6-14) Blood Urea Nitrogen 37 mg/dL (8-26) Creatinine 7.4 mg/dL (0.7-1.3) Estimated GFR (Cockcroft-Gault) 7.8 Glucose Level 287 mg/dL (70-99) Calcium Level 8.7 mg/dL (8.5-10.1) Random Vancomycin Level 26.7 mcg/mL Test 10/22/19 07:52 10/22/19 11:19 10/22/19 16:42 10/22/19 20:11 Glucose (Fingerstick) 222 mg/dL (70-99) 117 mg/dL (70-99) 129 mg/dL (70-99) 178 mg/dL (70-99) Test 10/23/19 07:40 Glucose (Fingerstick) 262 mg/dL (70-99) Laboratory Tests Test 10/22/19 11:19 10/22/19 16:42 10/22/19 20:11 10/23/19 07:40 Glucose (Fingerstick) 117 mg/dL (70-99) 129 mg/dL (70-99) 178 mg/dL (70-99) 262 mg/dL (70-99) Medications Active Scripts Medications Dose Route/Sig Max Daily Dose Days Date Category Zithromax (Azithromycin) 250 Mg Tablet 1 Pkg PO UD 09/29/19 Rx Doxycycline Hyclate 100 Mg Tablet 1 Tab PO BID 5 08/18/19 Rx Culturelle (Lactobacillus Rhamnosus Gg) 1 Each Cap.sprink 1 Cap PO BID 30 07/25/19 Rx Tylenol (Acetaminophen) 325 Mg Tablet 650 Mg PO PRN Q4HRS PRN 30 07/25/19 Rx Aspirin Ec (Aspirin) 81 Mg Tablet.dr 162 Mg PO DAILYWBKFT 30 07/25/19 Rx Lisinopril 40 Mg Tablet 20 Mg PO DAILY 30 07/25/19 Rx Metoclopramide Hcl 5 Mg Tablet 2.5 Mg PO QIDACHS 30 02/17/19 Rx [place] 5-325 Tablet (Acetaminophen/Hydrocodone Bitart) 1 Each Tablet 1 Tab PO PRN Q4HRS PRN 12/12/18 Reported Lantus (Insulin Glargine,Hum.rec.anlog) 100 Unit/1 Ml Vial 4 Unit SQ HS 12/09/18 Reported Atorvastatin Calcium 40 Mg Tablet 1 Tab PO DAILY 11/04/18 Reported Omeprazole 20 Mg Tablet.dr 1 Tab PO DAILY 11/04/18 Reported Vitamin A & D Ointment (Vits A & D/White Pet/Lanolin) 56.7 Gm Oint...g. 1 Mar[place] TP BID 30 08/28/18 Rx Humalog (Insulin Lispro) 100 Unit/1 Ml Insuln.pen 7 Units SQ TIDWMEALS 30 08/28/18 Rx Polyethylene Glycol 3350 17 Gm Powd.pack 17 Gm PO DAILY 04/23/18 Rx Carvedilol 25 Mg Tablet 25 Mg PO BIDWMEALS 04/17/18 Reported Clonidine Hcl 0.2 Mg Tablet 0.4 Mg PO QHS 04/17/18 Reported Amlodipine Besylate 10 Mg Tablet 10 Mg PO DAILY MDD 1 02/20/18 Rx Impression . IMPRESSION: 1. Acute hypoxemic respiratory failure. 2. Acute pulmonary edema. 3. End-stage renal disease. 4. Negative CT angiogram for pulmonary embolism. 5. Acute on chronic diastolic heart failure. 6. Gastroparesis. 7. Type 2 diabetes. 8. Obstructive sleep apnea. The patient had a sleep study approximately a month ago, was started on CPAP at 14 cm of water pressure. Plan . According to the patient when he came in he was not over his dry weight Suspect some of the chest x-ray findings related to an inflammatory response, acute lung injury Continue oxygen supplementation Follow nephrology input SOPHIA MCGOWAN MD Oct 23, 2019 09:22
--- NOTE | 2019-10-23 12:05 | PDOC ---
Renal-Progress Notes Subjective Notes Notes FEELING BETTER History of Present Illness Hx of present illness STABLE Vitals Vitals Vital Signs Date Time Temp Pulse Resp B/P (MAP) Pulse Ox O2 Delivery O2 Flow Rate FiO2 10/23/19 07:55 97.7 82 17 141/54 (83) 99 Nasal Cannula 2.0 97.7 Weight Weight [ ] I.O. Intake and Output Intake and Output 10/23/19 07:00 Intake Total 400 ml Output Total 0 ml Balance 400 ml Intake Oral 400 ml Output Urine Total 0 ml Labs Labs Laboratory Tests Test 10/22/19 16:42 10/22/19 20:11 10/23/19 07:40 Glucose (Fingerstick) 129 mg/dL (70-99) 178 mg/dL (70-99) 262 mg/dL (70-99) Micro Micro Microbiology 10/19/19 Blood Culture - Preliminary, Resulted NO GROWTH AFTER 3 DAYS Review of Systems Constitutional: yes: weakness, alert, oriented Ears/Nose/Throat: Yes: no symptom reported Eyes: Yes: no symptom reported Pulmonary: Yes dyspnea Cardiovascular: Yes no symptom reported Gastrointestional: Yes: no symptom reported Genitourinary: Yes: no symptom reported Musculoskeletal: Yes: no symptom reported Skin: Yes no symptom reported Physical Exam General Appearance: no apparent distress Skin: warm Respiratory: bilateral CTA Heart: S1S2 Abdomen: soft, bowel sounds present Extremities: pulses present Neurology: alert, oriented Assessment Assessment IMP ESRD-TTS ACUTE HYPOXIC RESP FAILURE ACUTE ON CHRONIC DIASTOLIC CHF ANEMIA N/V-GASTROPARESIS DM II PLAN HD TODAY UF TO DW UF TO DW AND CHALLENGE RULE OUT COVID FABIAN NEEDED MOR PADILLA MD Oct 23, 2019 12:05
[2019-10-23] MEDS: predniSONE 20 MG TABLET PO SCH (12:56)
[2019-10-23] MEDS: LACTOBACILLUS RHAMNOSUS GG 1 CAPSULE. PO SCH (12:56)
[2019-10-23] MEDS: ATORVASTATIN CALCIUM 40 MG TABLET. PO SCH (12:56)
[2019-10-23] MEDS: CARVEDILOL 12.5 MG TABLET. PO SCH ×2 (12:57→18:09)
[2019-10-23] MEDS: ASPIRIN ENTERIC COATED 81 MG TABLET.DR. PO SCH (12:57)
[2019-10-23] MEDS: amLODIPine BESYLATE 10 MG TABLET PO SCH (12:57)
[2019-10-23] MEDS: DOXYCYCLINE HYCLATE 100 MG TABLET PO SCH (12:57)
[2019-10-23] MEDS: POLYETHYLENE GLYCOL 3350 17 GM PACKET. PO SCH (12:58)
[2019-10-23] MEDS: LISINOPRIL 20 MG TABLET PO SCH (12:58)
[2019-10-23] MEDS: VITS A & D/LANOLIN TOPICAL OINTMENT 42GM TUBE. TP SCH (12:59)
[2019-10-23 15:27] VITALS: BP 166/67
--- NOTE | 2019-10-23 17:04 | NUR ---
SW following. Reviewed chart and spoke with RN. Pt from home. PT recommendation is home at independent at discharge. Pt on 02. Pt will likely discharge on 10/[address] Champion. Pt does out-patient dialysis on T,R,S at [facility], , (fax). JON dod coordinate care with [facility] today. SW to continue following.
[2019-10-23] MEDS ORDERED: HYDR-3164 PO (17:22)
[2019-10-23] MEDS ORDERED: DOXY100T PO (17:22)
[2019-10-23] MEDS ORDERED: PRED20TA PO (17:22)
--- NOTE | 2019-10-23 17:27 | SNU/HH DC ---
DISCHARGE WITH HOME HEALTH DISCHARGE INFORMATION: Discharge Date: Oct 23, 2019 Final Diagnosis: Problems Medical Problems: (1) ESRD on dialysis Status: Chronic (2) Person under investigation for COVID-19 Status: Acute Condition on Discharge: Stable CODE STATUS: Code Status: Full HOME HEALTH: Face to Face: I certify this patient is under my care and that I, or a nurse practitioner or physician's auction assistant working with me, had a face to face encounter that meets the physician face to face encounter requirements with this patient on 10/23/2019. Medical Complications: CHF, DJD, DM Assisted For: Assess Cardiopulm Status, Assess & Educate Safety, Assess/Skilled Observatio, Pain Management RN For Eval/Treatment: Yes Physical Therapy For: Evalulation/Treatment Occupational Therapy For: Evaluation/Treatment Speech Language Pathology For: Evaluation/Treatment Pt Meets Homebound Status: Unsteady balance w/ amb, POST DISCHARGE ORDERS: Activity Instructions for Disc: Activity as tolerated Weight Bearing Status after Di: No restrictions DIET AFTER DISCHARGE: Renal Wound/Incision Care: Reinforce dressing PRN CHECKS AFTER DISCHARGE: Checks after discharge: Check blood press - daily, Check blood sugar, ac/hs TREATMENT/EQUIPMENT ORDERS: Adaptive Equipment Issued: Cane Discharge Respiratory Equipmen: Oxygen CERTIFICATION STATEMENT: Certification Statement: Certification Statement: Based on the above finding, I certify that this patient is confined to the home and needs intermittent shelter care, physical therapy and/or speech therapy, or continues to need occupational therapy.~ This patient is under my care, and I have initiated the establishment of the plan of care.~ This patient will be followed by myself or a community physician who will periodically review the plan of care. Home Meds Active Scripts Prednisone (PREDNISONE) 20 Mg Tablet, 20 MG PO DAILY for Bronchitis for 5 Days, #5 TAB Prov:RAN JOE MD 10/23/19 Doxycycline Hyclate (DOXYCYCLINE HYCLATE) 100 Mg Tablet, 1 TAB PO BID for Pneumonia for 5 Days, #10 TAB Prov:RAN JOE MD 10/23/19 Hydrocodone/Apap 5-325 (NORCO 5-325 TABLET) 1 Each Tablet, 1 TAB PO PRN Q4HRS PRN for PAIN for 6 Days, #20 TAB Prov:RAN JOE MD 10/23/19 Lactobacillus Rhamnosus Gg (CULTURELLE) 1 Each Cap.sprink, 1 CAP PO BID for SUPPLEMENT for 30 Days, #60 CAP Prov:GRACIA BALDERRAMA MD 07/25/19 Acetaminophen (TYLENOL) 325 Mg Tablet, 650 MG PO PRN Q4HRS PRN for TEMP OVER 100.4F OR MILD PAIN for 30 Days, #60 TAB Prov:GRACIA BALDERRAMA MD 07/25/19 Aspirin (ASPIRIN EC) 81 Mg Tablet.dr, 162 MG PO DAILYWBKFT for HEART HEALTH for 30 Days, #60 TAB.SR Prov:GRACIA BALDERRAMA MD 07/25/19 Lisinopril (LISINOPRIL) 40 Mg Tablet, 20 MG PO DAILY for BLOOD PRESSURE for 30 Days, #15 TAB Prov:GRACIA BALDERRAMA MD 07/25/19 Metoclopramide Hcl (METOCLOPRAMIDE HCL) 5 Mg Tablet, 2.5 MG PO QIDACHS for Gastroparesis for 30 Days, #60 TAB Prov:RAN JOE MD 02/17/19 Vits A & D/White Pet/Lanolin (VITAMIN A & D OINTMENT) 56.7 Gm Oint...g., 1 DOUGLAS TP BID for supplement for 30 Days, #30 MISC Prov:YARELI FRAZIER MD 08/28/18 Insulin Lispro (HUMALOG) 100 Unit/1 Ml Insuln.pen, 7 UNITS SQ TIDWMEALS for DM for 30 Days, #1 VIAL Prov:YARELI FRAZIER MD 08/28/18 Polyethylene Glycol 3350 (POLYETHYLENE GLYCOL 3350) 17 Gm Powd.pack, 17 GM PO DAILY for constipation, #30 PKT Prov:PIYUSH SUERO MD 04/23/18 Amlodipine Besylate (AMLODIPINE BESYLATE) 10 Mg Tablet, 10 MG PO DAILY for htn MDD 1, #30 TAB Prov:KESHIA FREDERICK MD 02/20/18 Reported Medications Insulin Glargine,Hum.rec.anlog (LANTUS) 100 Unit/1 Ml Vial, 4 UNIT SQ HS for diabetic, VIAL 12/09/18 Atorvastatin Calcium (ATORVASTATIN CALCIUM) 40 Mg Tablet, 1 TAB PO DAILY for CHOLESTEROL, #30 TAB 5 Refills 11/04/18 Omeprazole (OMEPRAZOLE) 20 Mg Tablet., 1 TAB PO DAILY for GERD, #90 TAB 1 Refill 11/04/18 Carvedilol (CARVEDILOL) 25 Mg Tablet, 25 MG PO BIDWMEALS for CARDIAC, TAB 04/17/18 Clonidine Hcl (CLONIDINE HCL) 0.2 Mg Tablet, 0.4 MG PO QHS for HTN, #60 TAB 5 Refills 04/17/18 Discontinued Scripts Azithromycin (ZITHROMAX) 250 Mg Tablet, 1 PKG PO UD, #6 TAB Prov:TERRY MUNIZ DO 09/29/19 RAN JOE MD Oct 23, 2019 17:26
--- NOTE | 2019-10-23 17:29 | PDOC3 ---
Discharge Summary Visit Information Date of Admission: Oct 19, 2019 Date of Discharge: Oct 23, 2019 Admitting Diagnosis: Acute hypoxia Final Diagnosis Problems Medical Problems: (1) ESRD on dialysis Status: Chronic (2) Person under investigation for - Status: Acute Brief Hospital Course Allergies Allergies Coded Allergies Type Severity Reaction Last Updated Verified morphine Allergy Severe Nausea and Vomiting 07/19/19 Yes promethazine Allergy Severe sob, "throat swelling" 09/20/19 Yes amoxicillin Allergy Intermediate Rash 11/04/18 Yes butorphanol Allergy Intermediate Itching 02/14/19 Yes dexamethasone Allergy Intermediate Itching 11/04/18 Yes latex Allergy Intermediate Rash 11/04/18 Yes pregabalin Allergy Intermediate 04/27/19 Yes succinylcholine Allergy Intermediate 11/04/18 Yes Vital Signs Vital Signs Date Time Temp Pulse Resp B/P (MAP) Pulse Ox O2 Delivery O2 Flow Rate FiO2 10/23/19 15:39 Nasal Cannula 2.0 10/23/19 15:27 98.0 86 17 166/67 (100) 98 98.0 Lab Results Laboratory Tests Test 10/21/19 20:29 10/22/19 05:00 10/22/19 07:52 10/22/19 11:19 Glucose (Fingerstick) 219 mg/dL (70-99) 222 mg/dL (70-99) 117 mg/dL (70-99) Sodium Level 137 mmol/L (136-145) Potassium Level 4.5 mmol/L (3.5-5.1) Chloride Level 98 mmol/L (98-107) Carbon Dioxide Level 26 mmol/L (21-32) Anion Gap 13 (6-14) Blood Urea Nitrogen 37 mg/dL (8-26) Creatinine 7.4 mg/dL (0.7-1.3) Estimated GFR (Cockcroft-Gault) 7.8 Glucose Level 287 mg/dL (70-99) Calcium Level 8.7 mg/dL (8.5-10.1) Random Vancomycin Level 26.7 mcg/mL Test 10/22/19 16:42 10/22/19 20:11 10/23/19 07:40 10/23/19 12:53 Glucose (Fingerstick) 129 mg/dL (70-99) 178 mg/dL (70-99) 262 mg/dL (70-99) 95 mg/dL (70-99) Test 10/23/19 16:30 Glucose (Fingerstick) 110 mg/dL (70-99) Laboratory Tests Test 10/22/19 20:11 10/23/19 07:40 10/23/19 12:53 10/23/19 16:30 Glucose (Fingerstick) 178 mg/dL (70-99) 262 mg/dL (70-99) 95 mg/dL (70-99) 110 mg/dL (70-99) Brief Hospital Course Mr Sarkar is a 53-year-old male w/ PMHx bilateral BKAs, diabetes, hypertension, migraines, ESRD on HD with h/o 2 failed kidney transplants who is well known to our service, admitted presents via EMS c/o severe shortness of breath. He notes 4 to 5-day history of shortness of breath. Patient is on dialysis and received a full dialysis session on 10/18/2019 Patient denies any chest pain. Patient denies any fever cough or exposure to coronavirus. Patient states shortness of breath is worse with exertion as well as laying down. He did have a sleep study 1 month ago and was started on 14 cm H2O at night nasal pillows. He notes worsening nasal congestion nausea with this therapy at home states he has been cleaning his device regularly, however it has been intolerable for him the last couple weeks. Patient was found with O2 saturation at 61% on room air. His O2 saturations improved 100% on 6 L, was decreased to 5 L. Chest x-ray with bilateral pleural effusions and infiltrate. CTPA performed revealing alveolar pulmonary edema with bilateral pleural effusions and tracheobronchomalacia. Labs reveal CBC, WBC 4.5, Hb 8.7, platelets 247, INR 1.3, sodium 133, K4.5, BUN 37, CR 7.2, glucose 372, procalcitonin elevated 0.55, BNP greater than 35,000, albumin 3. Admitted for further care 10/20: Glucose 49 this morning. [place] improved after dialysis. Still mildly hypoxic. COVID-19 test result returned negative. He is feeling weak overall. Very little appetite. 10/21: Overnight did not wear CPAP, O2 saturation 70% this morning off oxygen. He notes that he has been checking his own pulse ox at home over the past 2 weeks and it has been low and he has been "toughing it out". Transition to oral antibiotics and steroids today. Afebrile, on 2 L oxygen. He is significantly less short of breath. Seen on dialysis. He is a bit anxious to get discharged home. Plan to return to his normal dialysis schedule will have next session Sunday outpatient and 6-minute walk prior to discharge. Consults: Pulm, Nephrology Problem list: Acute hypoxic respiratory failure - appears to be fluid overload, but given symptoms of illness will cover for HCAP. COVID 19 negative. Home o2 on d/c Intractable nausea and vomiting - 2/2 Gastroparesis - will cont meds, d/c'd IV reglan due to patient intolerance Pulmonary edema - given sudden onset shortness of breath after dialysis he is ruled out for COVID 19. More likely, however, is pulmonary edema related to fluid overload, CHF Pneumonia - likely gram negative given his risk factors, but with bilateral appearance could be MRSA, will cover with cefepime and vancomycin Anemia of CKD - stable, will monitor ESRD on HD - compensated, no immediate indication for dialysis. 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 Moderate obstructive sleep apnea, at an AHI of 22 per hour. Greater than 30 minutes spent on d/c Discharge Information Condition at Discharge: Improved Follow Up: Weeks (1) Disposition/Orders: D/C to Home w/ HH Scheduled Amlodipine Besylate (Amlodipine Besylate) 10 Mg Tablet, 10 MG PO DAILY for htn MDD 1, #30 Prescribed by: KESHIA FREDERICK on 02/20/18 0833 Last Action: Continued on 10/20/19 08 by RAN JOE MD Aspirin (Aspirin Ec) 81 Mg Tablet., [facility] for 30 Days, #60 Prescribed by: GRACIA BALDERRAMA MD on 07/25/19 1154 Last Action: Continued on 10/20/19 08 by RAN JOE MD Atorvastatin Calcium (Atorvastatin Calcium) 40 Mg Tablet, 1 TAB PO DAILY for CHOLESTEROL, #30 Ref 5 (Reported) Entered as Reported by: JACOB PANDEY on 11/04/18 0652 Last Action: Continued on 10/20/19803 by RAN JOE MD Carvedilol (Carvedilol) 25 Mg Tablet, 25 MG PO BIDWMEALS for CARDIAC, (Reported) Entered as Reported by: ZOEY CASEY on 04/17/18812 Last Action: Converted on 10/20/19803 by RAN JOE MD Clonidine Hcl (Clonidine Hcl) 0.2 Mg Tablet, 0.4 MG PO QHS for HTN, #60 Ref 5 (Reported) Entered as Reported by: ZOEY CASEY on 04/17/18812 Last Action: Continued on 10/20/19803 by RAN JOE MD Doxycycline Hyclate (Doxycycline Hyclate) 100 Mg Tablet, 1 TAB PO BID for Pneumonia for 5 Days, #10 Prescribed by: RAN JOE MD on 10/23/191721 Insulin Glargine,Hum.rec.anlog (Lantus) 100 Unit/1 Ml Vial, 4 UNIT SQ HS for diabetic, (Reported) Entered as Reported by: SRIKANTH THEODORE RN on 12/09/18 0057 Last Action: Continued on 10/20/19803 by RAN JOE MD Insulin Lispro (Humalog) 100 Unit/1 Ml Insuln.pen, 7 UNITS SQ TIDWMEALS for DM for 30 Days, #1 Prescribed by: YARELI FRAZIER MD on 08/28/18 1412 Last Action: Converted on 10/20/19803 by RAN JOE MD Lactobacillus Rhamnosus Gg (Culturelle) 1 Each Cap.sprink, 1 CAP PO BID for SUPPLEMENT for 30 Days, #60 Prescribed by: GRACIA BALDERRAMA MD on 07/25/19 1153 Last Action: Continued on 10/20/19803 by RAN JOE MD Lisinopril (Lisinopril) 40 Mg Tablet, 20 MG PO DAILY for BLOOD PRESSURE for 30 Days, #15 Prescribed by: GRACIA BALDERRAMA MD on 07/25/19 115 Last Action: Continued on 10/20/19803 by RAN JOE MD Metoclopramide Hcl (Metoclopramide Hcl) 5 Mg Tablet, 2.5 MG PO QIDACHS for Gastroparesis for 30 Days, #60 Prescribed by: RAN JOE MD on 02/17/19 0944 Last Action: Continued on 10/20/19803 by RAN JOE MD Omeprazole (Omeprazole) 20 Mg Tablet.dr, 1 TAB PO DAILY for GERD, #90 Ref 1 (Re ported) Entered as Reported by: JACOB PANDEY on 11/04/18 0650 Last Action: Converted on 10/20/19803 by RAN JOE MD Polyethylene Glycol 3350 (Polyethylene Glycol 3350) 17 Gm Powd.pack, 17 GM PO DAILY for constipation, #30 Prescribed by: PIYUSH SUERO on 04/23/18 1355 Last Action: Continued on 10/20/19803 by RAN JOE MD Prednisone (Prednisone) 20 Mg Tablet, 20 MG PO DAILY for Bronchitis for 5 Days, #5 Prescribed by: RAN JOE MD on 10/23/19 1722 Vits A & D/White Pet/Lanolin (Vitamin A & D Ointment) 56.7 Gm Oint...g., 1 DOUGLAS TP BID for supplement for 30 Days, #30 Prescribed by: YARELI FRAZIER MD on 08/28/18 1412 Last Action: Continued on 10/20/19803 by RAN JOE MD Scheduled PRN Acetaminophen (Tylenol) 325 Mg Tablet, 650 MG PO PRN Q4HRS PRN for TEMP OVER 100.4F OR MILD PAIN for 30 Days, #60 Prescribed by: GRACIA BALDERRAMA MD on 07/25/19 1154 Last Action: Continued on 10/20/19803 by RAN JOE MD Hydrocodone/Apap 5-325 ([place] 5-325 Tablet) 1 Each Tablet, 1 TAB PO PRN Q4HRS PRN for PAIN for 6 Days, #20 Prescribed by: RAN JOE MD on 10/23/19 1723 Discontinued Medications Azithromycin (Zithromax) 250 Mg Tablet, 1 PKG PO UD, #6 Prescribed by: TERRY MUNIZ D.O. on 09/29/19 0117 Justicifation of Admission Dx: Justifications for Admission: Justification of Admission Dx: Yes RAN JOE MD Oct 23, 2019 17:29
[2019-10-23 18:09] VITALS: BP 163/61
--- NOTE | 2019-10-23 19:27 | NUR ---
Discharge Note: LEONORA MORFIN Discharge instructions and discharge home medications reviewed with Patient and a copy given. All questions have been answered and understanding verbalized. The following instructions and handouts were given: Home Discharge instruction, medication list, scripts, portable oxygen tank and all personal belonging taken with Patient. Discontinued lines and drains: JAVIER Solano discontinued SL from Rt. FA and Rt. hand, skin intact. Patient discharged to Home with family via private vehicle per wheelchair and portable oxygen tank.
== END 2019-10-23 19:36 | disposition home or self-care (01) | DRG 177 ==
LOC: ER 19:54 → ED HOLD 22:24 → 6 SOUTH 10-21 00:25 → 5 NORTH 10-21 18:10
PROVIDERS: ADMIT Family Medicine; ATTEND Family Medicine
PROC: 5A1D70Z Performance of Urinary Filtration, Intermittent, Less than 6 Hours Per Day (ICD-10-PCS; principal; 2019-10-23)
DX: J15.6 Pneumonia due to other Gram-negative bacteria (principal); J96.01 Acute respiratory failure with hypoxia; I50.33 Acute on chronic diastolic (congestive) heart failure; N18.6 End stage renal disease; I13.2 Hypertensive heart and chronic kidney disease with heart failure and with stage 5 chronic kidney disease, or end stage renal disease; D63.1 Anemia in chronic kidney disease; E10.22 Type 1 diabetes mellitus with diabetic chronic kidney disease; E10.43 Type 1 diabetes mellitus with diabetic autonomic (poly)neuropathy; E78.5 Hyperlipidemia, unspecified; F32.9 Major depressive disorder, single episode, unspecified; G47.33 Obstructive sleep apnea (adult) (pediatric); I25.10 Atherosclerotic heart disease of native coronary artery without angina pectoris; K31.84 Gastroparesis; Z20.828 Contact with and (suspected) exposure to other viral communicable diseases; Z79.4 Long term (current) use of insulin; Z89.511 Acquired absence of right leg below knee; Z89.512 Acquired absence of left leg below knee; Z99.2 Dependence on renal dialysis; G43.909 Migraine, unspecified, not intractable, without status migrainosus; K21.9 Gastro-esophageal reflux disease without esophagitis; Z88.5 Allergy status to narcotic agent; Z88.8 Allergy status to other drugs, medicaments and biological substances; Z88.1 Allergy status to other antibiotic agents; Z91.040 Latex allergy status; E21.3 Hyperparathyroidism, unspecified
CPT/HCPCS: 36415; 71045; 71275; 80048; 80053; 80202; 82962; 83605; 83880; 84145; 84484; 85025; 85379; 85610; 85730; 87040; 93005; 94618; 99285; J0456; J0696; J1170; J1644; J1815; J1885; J2405; J2543; J3010; J3370; J7040; J7512; Q9967; G0378; U0003-CS

== ENCOUNTER 2019-12-04 22:15 | Emergency (ER) | payer OTHER ==
[~2019-12-04] VITALS: Ht 170.2 cm; Wt 60.0 kg
[~2019-12-04 22:15] MED LIST changes: -ASPI-612 PO; +ASPI-886 PO; +PRED20TA PO
[2019-12-04] MEDS ORDERED: ONDANSETRON ODT 4 MG TAB.RAPDIS. PO ONE (22:30)
--- NOTE | 2019-12-04 22:37 | PHYS DOC ---
Past Medical History Past Medical History: Diabetes-Type I, Hypertension, Migraines, Pneumonia, Renal Failure, Other Additional Past Medical Histor: ACUTE RENAL FAILURE on dialysis, hypoglycemia Past Surgical History: Other Additional Past Surgical Histo: CHARLES KIDNEY TRANSPLANT,DIALYSIS CATH,DOUBLE BKA,HERNIA,L EYE IMPLANT Smoking Status: Never Smoker Alcohol Use: None Drug Use: None General Adult EDM: Chief Complaint: HYPOGLYCEMIA HPI: HPI: The history was obtained from the patient and EMS . Patient is a 54-year-old male with PMH insulin-dependent diabetes, ESRD who presents with a chief complaint of hypoglycemia. EMS were called to patient's house for refractory low blood sugar. Patient states that he takes 40 units of Lantus nightly and sliding scale in between. He states he does not use his home Lantus. He does note that he took 2 units of regular insulin at 530 and then ate dinner at 6. He states he checked his blood sugar 90 minutes prior to arrival noted to be low. He did try eating oral glucose tablets without relief of his low blood sugar. He does note 2 episodes of nonbloody nonbilious emesis. States is happened multiple times in the past. Notes he has been tested for gastroparesis and this was negative in spring 2019 he thinks. States that he has dialysis on Tuesdays, , Saturdays. Has not missed any recent appointments. Denies chest pain or shortness of breath. Denies abdominal pain. Does still make minimal urine he states. He states he feels generally fatigued but otherwise normal. He states that frequently he is discharged home after these episodes. No other complaints. Review of Systems: Review of Systems: Constitutional: Positive for fatigue Eyes: Denies change in visual acuity. [] HENT: Denies nasal congestion or sore throat. [] Respiratory: Denies cough or shortness of breath. [] Cardiovascular: Denies chest pain or edema. [] GI: Denies abdominal pain, nausea, vomiting, bloody stools or diarrhea. [] : Denies dysuria. [] Musculoskeletal: Denies back pain or joint pain. [] Integument: Denies rash. [] Neurologic: Denies headache, focal weakness or sensory changes. [] Endocrine: Positive for hypoglycemia Lymphatic: Denies swollen glands. [] Psychiatric: Denies depression or anxiety. [] Heart Score: Risk Factors: Risk Factors: DM, Current or recent (<one month) smoker, HTN, HLP, family history of CAD, obesity. Risk Scores: Score 0 - 3: 2.5% MACE over next 6 weeks - Discharge Home Score 4 - 6: 20.3% MACE over next 6 weeks - Admit for Clinical Observation Score 7 - 10: 72.7% MACE over next 6 weeks - Early Invasive Strategies Current Medications: Current Medications Medications (Trade) Dose Ordered Sig/Penelope Start Time Stop Time Status Last Admin Dose Admin Ondansetron HCl (Zofran Odt) 4 mg 1X ONCE 12/04/19 22:30 12/04/19 22:31 DC Allergies: Allergies: Allergies Coded Allergies Type Severity Reaction Last Updated Verified morphine Allergy Severe Nausea and Vomiting 07/19/19 Yes promethazine Allergy Severe sob, "throat swelling" 09/20/19 Yes amoxicillin Allergy Intermediate Rash 11/04/18 Yes butorphanol Allergy Intermediate Itching 02/14/19 Yes dexamethasone Allergy Intermediate Itching 11/04/18 Yes latex Allergy Intermediate Rash 11/04/18 Yes pregabalin Allergy Intermediate 04/27/19 Yes succinylcholine Allergy Intermediate 11/04/18 Yes Physical Exam: PE: Constitutional: Well developed, well nourished, no acute distress, non-toxic appearance. [] HENT: Normocephalic, atraumatic, bilateral external ears normal, oropharynx moist, no oral exudates, nose normal. [] Eyes: PERRLA, EOMI, conjunctiva normal, no discharge. [] Neck: Normal range of motion, no tenderness, supple, no stridor. [] Cardiovascular:Heart rate regular rhythm, no murmur [] anterior chest wall port site noted. Lungs & Thorax: Bilateral breath sounds clear to auscultation [] Abdomen: normal, soft, no tenderness, no masses, no pulsatile masses. [] Multiple surgical scars noted. Well-healed. Skin: Warm, dry, no erythema, no rash. [] Back: No tenderness, no CVA tenderness. [] Extremities: No bilateral AKA noted Neurologic: Alert with intact cognitive function. No aphasia, dysarthria, or neglect. GCS 15. Pupils 3 mm briskly reactive b/l. No APD present. Cranial nerves 2-12 grossly intact; no facial asymmetry present, tongue midline, shoulder shrugging strength intact. Strength 5/5 and symmetric throughout. Light touch sensation intact throughout. Cerebellar testing appropriate without evidence of dysdiadochokinesia. DTR's 2+ in all 4 extremities. Negative pronator drift bilaterally. Gait normal Psychologic: Affect normal, judgement normal, mood normal. [] Current Patient Data: Labs: Laboratory Tests Test 12/04/19 22:21 Glucose (Fingerstick) 169 mg/dL (70-99) H Laboratory Tests Test 12/04/19 22:21 12/04/19 22:30 12/04/19 23:01 Glucose (Fingerstick) 169 mg/dL 192 mg/dL White Blood Count 6.1 x10^3/uL Red Blood Count 3.35 x10^6/uL Hemoglobin 10.0 g/dL Hematocrit 30.3 % Mean Corpuscular Volume 91 fL Mean Corpuscular Hemoglobin 30 pg Mean Corpuscular Hemoglobin Concent 33 g/dL Red Cell Distribution Width 17.4 % Platelet Count 240 x10^3/uL Neutrophils (%) (Auto) 73 % Lymphocytes (%) (Auto) 14 % Monocytes (%) (Auto) 9 % Eosinophils (%) (Auto) 2 % Basophils (%) (Auto) 2 % Neutrophils # (Auto) 4.5 x10^3/uL Lymphocytes # (Auto) 0.9 x10^3/uL Monocytes # (Auto) 0.5 x10^3/uL Eosinophils # (Auto) 0.1 x10^3/uL Basophils # (Auto) 0.1 x10^3/uL Sodium Level 135 mmol/L Potassium Level 3.3 mmol/L Chloride Level 96 mmol/L Carbon Dioxide Level 32 mmol/L Anion Gap 7 Blood Urea Nitrogen 21 mg/dL Creatinine 4.6 mg/dL Estimated GFR (Cockcroft-Gault) 13.5 BUN/Creatinine Ratio 5 Glucose Level 182 mg/dL Calcium Level 9.4 mg/dL Magnesium Level 2.0 mg/dL Total Bilirubin 0.6 mg/dL Aspartate Amino Transf (AST/SGOT) 13 U/L Alanine Aminotransferase (ALT/SGPT) 8 U/L Alkaline Phosphatase 192 U/L Troponin I Quantitative < 0.017 ng/mL Total Protein 8.7 g/dL Albumin 3.0 g/dL Albumin/Globulin Ratio 0.5 Lipase 75 U/L Current Medications Medications (Trade) Dose Ordered Sig/Penelope Route PRN Reason Start Time Stop Time Status Last Admin Dose Admin Ondansetron HCl (Zofran Odt) 4 mg 1X ONCE PO 12/04/19 22:30 12/04/19 22:31 DC 12/04/19 22:40 EKG: EKG: EKG consistent with sinus tachycardia. Ventricular rate of 103 bpm. Left axis noted. Intervals normal. Inverted T waves noted in V6. No acute ischemic changes appreciated. Overall similar to EKG from previous study. [] Radiology/Procedures: Radiology/Procedures: [] Course & Med Decision Making: Course & Med Decision Making Pertinent Labs and Imaging studies reviewed. (See chart for details) [] Patient is a very pleasant 54-year-old male who presents with chief complaint of low blood sugar. Initial blood sugar at the patient's house was approximately 50 per EMS. They state they did give him an ampule of D10. Patient states that he was never altered or lethargic from his low blood sugar they just cannot get it to elevate which is why they called EMS. Upon arrival patient is alert and oriented x3. No focal neurologic deficits. Repeat blood sugar was 169. Basic labs were obtained were grossly unremarkable. He does have chronic kidney dysfunction but electrolytes are within normal limits. He states that he does have regular follow-up for his dialysis appointments. Remainder of labs been unremarkable. He has tolerated p.o. in the emergency department no difficulty. She has no signs of refractory hypoglycemia or alte red mental status. Sister is at bedside. They are both requesting discharge home. Overall I do feel this is reasonable. Patient is likely a brittle diabetic and potentially has a gastroparesis component. Low suspicion for emergent etiology causing the patient's low blood sugar. Patient does live with his sister who can closely monitor him at home. He states he does have all of his insulin at home. Final blood sugar prior to discharge 248. Return precautions discussed and understood. Stable for discharge home. Dragon Disclaimer: Mariaelena Disclaimer: This electronic medical record was generated, in whole or in part, using a voice recognition dictation system. Departure Departure Impression: Primary Impression: Hypoglycemia Additional Impression: ESRD (end stage renal disease) Disposition: HOME, SELF-CARE Condition: STABLE Referrals: FLAVIA FERNANDES MD (PCP) Patient Instructions: Hypoglycemia (Low Blood Sugar) Additional Instructions: Please follow-up with your primary care physician in the next 2 to 3 days. Justicifation of Admission Dx: Justifications for Admission: Justification of Admission Dx: N/A PEDRO COKER DO Dec 04, 2019 22:37
[2019-12-04 22:39] LABS: BASO # 0.1 x10^3/uL (0.0-0.2); BASO % 2 % (0-3); EOS # 0.1 x10^3/uL (0.0-0.7); EOS % 2 % (0-3); HEMATOCRIT 30.3 % (39.0-53.0); LYMPH # 0.9 x10^3/uL (1.0-4.8); LYMPH % 14 % (24-48); MEAN CORPUSCULAR HEMOGLOBIN 30 pg (25-35); MEAN CORPUSCULAR HGB CONC 33 g/dL (31-37); MEAN CORPUSCULAR VOLUME 91 fL (79-100); MONO # 0.5 x10^3/uL (0.0-1.1); MONO % 9 % (0-9); NEUT # 4.5 x10^3/uL (1.8-7.7); NEUT % 73 % (31-73); PLATELET COUNT 240 x10^3/uL (140-400); RED BLOOD COUNT 3.35 x10^6/uL (4.30-5.70); RED CELL DISTRIBUTION WIDTH 17.4 % (11.5-14.5); WHITE BLOOD COUNT 6.1 x10^3/uL (4.0-11.0)
[2019-12-04 22:46] LABS: CALCIUM 9.4 mg/dL (8.5-10.1); CREATININE 4.6 mg/dL (0.7-1.3); GFR 13.5; POTASSIUM 3.3 mmol/L (3.5-5.1)
[2019-12-04 22:56] LABS: ALBUMIN/GLOBULIN RATIO 0.5 (1.0-1.7); TOTAL BILIRUBIN 0.6 mg/dL (0.2-1.0); TOTAL PROTEIN 8.7 g/dL (6.4-8.2)
[2019-12-04 23:46] VITALS: BP 178/74
--- NOTE | 2019-12-05 07:06 | EKG ---
[facility] [address] [place] [address] Test Date: 2019-12-04 Test Time: 22:47:08 Pat Name: ELVIN MORFIN Department: Room: Gender: M [employer] Adf Consultant: : 1965 Requested By: PEDRO COKER Order Number: [id number] Reading MD: Measurements Intervals Alexander Rate: 103 P: 41 DE: 156 QRS: 0 QRSD: 106 T: 27 QT: 344 QTc: 453 Interpretive Statements SINUS TACHYCARDIA LEFTWARD AXIS NO SPECIFIC ECG ABNORMALITIES RI6.02 No previous ECG available for comparison
== END 2019-12-04 23:46 | disposition home or self-care (01) ==
LOC: ER 22:15
DX: E10.649 Type 1 diabetes mellitus with hypoglycemia without coma (principal); R11.10 Vomiting, unspecified; N18.6 End stage renal disease; I10 Essential (primary) hypertension; G43.909 Migraine, unspecified, not intractable, without status migrainosus; Z98.890 Other specified postprocedural states; Z88.6 Allergy status to analgesic agent; Z88.1 Allergy status to other antibiotic agents; Z91.040 Latex allergy status; Z88.8 Allergy status to other drugs, medicaments and biological substances
CPT/HCPCS: 36415; 80053; 82962; 83690; 83735; 84484; 85025; 93005; 99285

== ENCOUNTER → 2019-12-10 | Outpatient (CLI) | payer OTHER ==
[2019-12-04 23:46] VITALS: BP 178/74
--- NOTE | 2019-12-10 14:37 | RAD ---
Chest radiograph 12/10/2019 11:57 AM INDICATION: Shortness of air COMPARISON: 10/19/2019 TECHNIQUE: Frontal and lateral views of the chest are provided. FINDINGS: The cardiomediastinal silhouette is enlarged, stable. Right chest wall double-lumen dialysis catheter is in similar position. Improved aeration of the lungs with mild residual pulmonary vascular congestion. Mild interstitial airspace disease noted at the lung bases. Trace left pleural effusion. No pneumothorax. No significant osseous abnormality is identified. IMPRESSION: Improved aeration of the lungs with mild residual pulmonary vascular congestion and bibasilar interstitial airspace disease. Electronically signed by: Britany Stephen MD (12/10/2019 2:34 PM) [id number]
== END | disposition home or self-care (01) ==
LOC: RAD 10:47
PROVIDERS: ATTEND Internal Medicine Pulmonary Disease
DX: J84.89 Other specified interstitial pulmonary diseases (principal); R06.02 Shortness of breath; R09.89 Other specified symptoms and signs involving the circulatory and respiratory systems; I51.7 Cardiomegaly
CPT/HCPCS: 71046

== ENCOUNTER 2019-12-14 22:14 | Emergency (ER) | payer OTHER ==
[~2019-12-14] VITALS: Ht 170.2 cm; Wt 65.0 kg
[2019-12-14 23:12] LABS: BASO % 1 % (0-3); EOS # 0.2 x10^3/uL (0.0-0.7); EOS % 4 % (0-3); HEMATOCRIT 27.8 % (39.0-53.0); HEMOGLOBIN 8.9 g/dL (13.0-17.5); LYMPH # 0.6 x10^3/uL (1.0-4.8); LYMPH % 14 % (24-48); MEAN CORPUSCULAR HEMOGLOBIN 30 pg (25-35); MEAN CORPUSCULAR HGB CONC 32 g/dL (31-37); MEAN CORPUSCULAR VOLUME 92 fL (79-100); MONO # 0.4 x10^3/uL (0.0-1.1); MONO % 8 % (0-9); NEUT # 3.4 x10^3/uL (1.8-7.7); NEUT % 74 % (31-73); PLATELET COUNT 215 x10^3/uL (140-400); RED BLOOD COUNT 3.01 x10^6/uL (4.30-5.70); RED CELL DISTRIBUTION WIDTH 18.5 % (11.5-14.5); WHITE BLOOD COUNT 4.6 x10^3/uL (4.0-11.0)
[2019-12-14 23:22] LABS: CALCIUM 9.7 mg/dL (8.5-10.1); GFR 9.9; POTASSIUM 4.4 mmol/L (3.5-5.1); PROTHROMBIN TIME PATIENT 15.5 SEC (11.7-14.0)
[2019-12-14 23:28] LABS: ALBUMIN 2.9 g/dL (3.4-5.0); ALBUMIN/GLOBULIN RATIO 0.6 (1.0-1.7); MAGNESIUM 2.3 mg/dL (1.8-2.4); TOTAL BILIRUBIN 0.6 mg/dL (0.2-1.0); TOTAL PROTEIN 7.8 g/dL (6.4-8.2)
[2019-12-14] MEDS ORDERED: ONDANSETRON PF 4 MG/2 ML VIAL. IVP ONE (23:30)
[2019-12-14] MEDS ORDERED: IV NORMAL SALINE 1000ML BAG 1,000 ML IV ONE (23:30)
[2019-12-14] MEDS ORDERED: fentaNYL PF VIAL 100 MCG/2 ML VIAL IVP ONE (23:30)
[2019-12-14 23:36] LABS: CREATINE KINASE 63 U/L (39-308)
--- NOTE | 2019-12-14 23:58 | RAD ---
Examination: CT of the abdomen pelvis without contrast HISTORY: History of flank pain, hematuria COMPARISON: 01/24/2018 TECHNIQUE: Axial CT images of the abdomen pelvis were performed without contrast. Coronal and sagittal reformats are performed. Exposure: One or more of the following individualized dose reduction techniques were utilized for this examination: 1. Automated exposure control 2. Adjustment of the mA and/or kV according to patient size 3. Use of iterative reconstruction technique FINDINGS: Diffuse airspace opacities identified in the bibasilar lungs with prominent appearing bilateral interstitial lung markings likely interstitial infiltrates or edema with small bilateral pleural effusions. No evidence of free air identified in the abdomen The evaluation of the solid organs is limited due to lack of IV contrast. The evaluation of bowel is limited due to lack of oral contrast. The noncontrasted liver, adrenals grossly appears unremarkable. Calcified granuloma is identified in the spleen. The stomach is mildly distended. The visualized pancreas grossly appears unremarkable. The small bowel is nondilated. Moderate amount of feces and gas identified throughout the colon. Atrophic appearing bilateral [place] kidneys. The right iliac fossa transplant kidney demonstrates mild inflammatory fat stranding about the transplanted kidney. Evaluation is limited due to bowel loops The left iliac fossa transplant kidney appears a round without evidence of distinct renal medulla with surrounding inflammatory fat stranding. Urinary bladder is mildly distended Hardware identified in the left hip. Mild degenerative changes lumbar spine. Mild sclerotic appearance of the skeleton probably due to renal osteodystrophy. IMPRESSION: 1. Mild fat stranding identified in the right iliac fossa transplant kidney could be due to medical renal disease or infection. 2. The left iliac fossa transplant kidney appears a round without evidence of distinct renal medulla with surrounding inflammatory fat stranding, uncertain etiology could be due to infection. Consider follow-up ultrasound. 3. Diffuse airspace opacities with prominent interstitial lung markings identified in the bibasilar lungs likely infiltrates or congestive changes with small bilateral pleural effusions. Electronically signed by: Jerry Mascorro MD (12/14/2019 11:55 PM) [facility]
--- NOTE | 2019-12-15 00:21 | PHYS DOC ---
Past Medical History Past Medical History: Diabetes-Type I, Hypertension, Migraines, Pneumonia, Renal Failure, Other Additional Past Medical Histor: ACUTE RENAL FAILURE on dialysis, hypoglycemia Past Surgical History: Other Additional Past Surgical Histo: CHARLES KIDNEY TRANSPLANT,DIALYSIS CATH,DOUBLE B KA,HERNIA,L EYE IMPLANT Smoking Status: Never Smoker Alcohol Use: None Drug Use: None General Adult EDM: Chief Complaint: BLOOD IN URINE HPI: HPI: Patient is a 54 year old [f__sex] who presents with [] Review of Systems: Review of Systems: Constitutional: Denies fever or chills. [] Eyes: Denies change in visual acuity. [] HENT: Denies nasal congestion or sore throat. [] Respiratory: Denies cough or shortness of breath. [] Cardiovascular: Denies chest pain or edema. [] GI: Denies abdominal pain, nausea, vomiting, bloody stools or diarrhea. [] : Denies dysuria. [] Musculoskeletal: Denies back pain or joint pain. [] Integument: Denies rash. [] Neurologic: Denies headache, focal weakness or sensory changes. [] Endocrine: Denies polyuria or polydipsia. [] Lymphatic: Denies swollen glands. [] Psychiatric: Denies depression or anxiety. [] Heart Score: Risk Factors: Risk Factors: DM, Current or recent (<one month) smoker, HTN, HLP, family history of CAD, obesity. Risk Scores: Score 0 - 3: 2.5% MACE over next 6 weeks - Discharge Home Score 4 - 6: 20.3% MACE over next 6 weeks - Admit for Clinical Observation Score 7 - 10: 72.7% MACE over next 6 weeks - Early Invasive Strategies Current Medications: Current Medications Medications (Trade) Dose Ordered Sig/Penelope Start Time Stop Time Status Last Admin Dose Admin Fentanyl Citrate (Fentanyl 2ml Vial) 50 mcg 1X ONCE 12/14/19 23:30 12/14/19 23:31 DC 12/14/19 23:23 50 MCG Ondansetron HCl (Zofran) 4 mg 1X ONCE 12/14/19 23:30 12/14/19 23:31 DC 12/14/19 23:23 4 MG Sodium Chloride 1,000 ml @ 1,000 mls/hr 1X ONCE 12/14/19 23:30 12/15/19 00:29 12/14/19 23:39 1,000 MLS/HR Allergies: Allergies: Allergies Coded Allergies Type Severity Reaction Last Updated Verified morphine Allergy Severe Nausea and Vomiting 07/19/19 Yes promethazine Allergy Severe sob, "throat swelling" 09/20/19 Yes amoxicillin Allergy Intermediate Rash 11/04/18 Yes butorphanol Allergy Intermediate Itching 02/14/19 Yes dexamethasone Allergy Intermediate Itching 11/04/18 Yes latex Allergy Intermediate Rash 11/04/18 Yes pregabalin Allergy Intermediate 04/27/19 Yes succinylcholine Allergy Intermediate 11/04/18 Yes Physical Exam: PE: Constitutional: Well developed, well nourished, no acute distress, non-toxic appearance. [] HENT: Normocephalic, atraumatic, bilateral external ears normal, oropharynx moist, no oral exudates, nose normal. [] Eyes: PERRLA, EOMI, conjunctiva normal, no discharge. [] Neck: Normal range of motion, no tenderness, supple, no stridor. [] Cardiovascular:Heart rate regular rhythm, no murmur [] Lungs & Thorax: Bilateral breath sounds clear to auscultation [] Abdomen: Bowel sounds normal, soft, no tenderness, no masses, no pulsatile masses. [] Skin: Warm, dry, no erythema, no rash. [] Back: No tenderness, no CVA tenderness. [] Extremities: No tenderness, no cyanosis, no clubbing, ROM intact, no edema. [] Neurologic: Alert and oriented X 3, normal motor function, normal sensory function, no focal deficits noted. [] Psychologic: Affect normal, judgement normal, mood normal. [] Current Patient Data: Labs: Laboratory Tests Test 12/14/19 23:05 White Blood Count 4.6 x10^3/uL (4.0-11.0) Red Blood Count 3.01 x10^6/uL (4.30-5.70) L Hemoglobin 8.9 g/dL (13.0-17.5) L Hematocrit 27.8 % (39.0-53.0) L Mean Corpuscular Volume 92 fL (79-100) Mean Corpuscular Hemoglobin 30 pg (25-35) Mean Corpuscular Hemoglobin Concent 32 g/dL (31-37) Red Cell Distribution Width 18.5 % (11.5-14.5) H Platelet Count 215 x10^3/uL (140-400) Neutrophils (%) (Auto) 74 % (31-73) H Lymphocytes (%) (Auto) 14 % (24-48) L Monocytes (%) (Auto) 8 % (0-9) Eosinophils (%) (Auto) 4 % (0-3) H Basophils (%) (Auto) 1 % (0-3) Neutrophils # (Auto) 3.4 x10^3/uL (1.8-7.7) Lymphocytes # (Auto) 0.6 x10^3/uL (1.0-4.8) L Monocytes # (Auto) 0.4 x10^3/uL (0.0-1.1) Eosinophils # (Auto) 0.2 x10^3/uL (0.0-0.7) Basophils # (Auto) 0.0 x10^3/uL (0.0-0.2) Prothrombin Time 15.5 SEC (11.7-14.0) H Prothrombin Time INR 1.3 (0.8-1.1) H Activated Partial Thromboplast Time 36 SEC (24-38) Sodium Level 133 mmol/L (136-145) L Potassium Level 4.4 mmol/L (3.5-5.1) Chloride Level 94 mmol/L (98-107) L Carbon Dioxide Level 24 mmol/L (21-32) Anion Gap 15 (6-14) H Blood Urea Nitrogen 36 mg/dL (8-26) H Creatinine 6.0 mg/dL (0.7-1.3) H Estimated GFR (Cockcroft-Gault) 9.9 BUN/Creatinine Ratio 6 (6-20) Glucose Level 399 mg/dL (70-99) H Calcium Level 9.7 mg/dL (8.5-10.1) Magnesium Level 2.3 mg/dL (1.8-2.4) Total Bilirubin 0.6 mg/dL (0.2-1.0) Aspartate Amino Transferase (AST) 12 U/L (15-37) L Alanine Aminotransferase (ALT) 13 U/L (16-63) L Alkaline Phosphatase 145 U/L (46-116) H Creatine Kinase 63 U/L (39-308) Creatine Kinase MB (Mass) 2.6 ng/mL (0.0-3.6) Creatine Kinase MB Relative Index % (0-4) Total Protein 7.8 g/dL (6.4-8.2) Albumin 2.9 g/dL (3.4-5.0) L Albumin/Globulin Ratio 0.6 (1.0-1.7) L Lipase 36 U/L (73-393) L Laboratory Tests 12/14/19 23:05 Laboratory Tests 12/14/19 23:05 Vital Signs: Vital Signs Date Time Temp Pulse Resp B/P (MAP) Pulse Ox O2 Delivery O2 Flow Rate FiO2 12/14/19 23:23 20 99 2.0 12/14/19 22:44 98.3 90 166/71 (102) Nasal Cannula 98.3 EKG: EKG: [] Radiology/Procedures: Radiology/Procedures: PROCEDURE: CT ABDOMEN PELVIS WO CONTRAST Examination: CT of the abdomen pelvis without contrast HISTORY: History of flank pain, hematuria COMPARISON: 01/24/2018 TECHNIQUE: Axial CT images of the abdomen pelvis were performed without contrast. Coronal and sagittal reformats are performed. Exposure: One or more of the following individualized dose reduction techniques were utilized for this examination: 1. Automated exposure control 2. Adjustment of the mA and/or kV according to patient size 3. Use of iterative reconstruction technique FINDINGS: Diffuse airspace opacities identified in the bibasilar lungs with prominent appearing bilateral interstitial lung markings likely interstitial infiltrates or edema with small bilateral pleural effusions. No evidence of free air identified in the abdomen The evaluation of the solid organs is limited due to lack of IV contrast. The evaluation of bowel is limited due to lack of oral contrast. The noncontrasted liver, adrenals grossly appears unremarkable. Calcified granuloma is identified in the spleen. The stomach is mildly distended. The visualized pancreas grossly appears unremarkable. The small bowel is nondilated. Moderate amount of feces and gas identified throughout the colon. Atrophic appearing bilateral [place] kidneys. The right iliac fossa transplant kidney demonstrates mild inflammatory fat stranding about the transplanted kidney. Evaluation is limited due to bowel loops The left iliac fossa transplant kidney appears a round without evidence of distinct renal medulla with surrounding inflammatory fat stranding. Urinary bladder is mildly distended Hardware identified in the left hip. Mild degenerative changes lumbar spine. Mild sclerotic appearance of the skeleton probably due to renal osteodystrophy. IMPRESSION: 1. Mild fat stranding identified in the right iliac fossa transplant kidney could be due to medical renal disease or infection. 2. The left iliac fossa transplant kidney appears a round without evidence of distinct renal medulla with surrounding inflammatory fat stranding, uncertain etiology could be due to infection. Consider follow-up ultrasound. 3. Diffuse airspace opacities with prominent interstitial lung markings identified in the bibasilar lungs likely infiltrates or congestive changes with small bilateral pleural effusions. Electronically signed by: Jerry Mascorro MD (12/14/2019 11:55 PM) [id number] Course & Med Decision Making: Course & Med Decision Making Pertinent Labs and Imaging studies reviewed. (See chart for details) [] Dragon Disclaimer: Dragon Disclaimer: This electronic medical record was generated, in whole or in part, using a voice recognition dictation system. Departure Departure Impression: Primary Impression: UTI (urinary tract infection) Qualified Codes: N30.01 - Acute cystitis with hematuria Additional Impression: Hematuria Qualified Codes: R31.9 - Hematuria, unspecified Disposition: HOME, SELF-CARE Condition: STABLE Referrals: FLAVIA FERNANDES MD (PCP) Patient Instructions: Hematuria, Adult, Urinary Tract Infection, [id number] Scripts Hydrocodone/Apap 5-325 (NORCO 5-325 TABLET) 1 Each Tablet 0.5-1 TAB PO PRN Q6HRS PRN for PAIN, #10 TAB 0 Refills Prov: VIRGINIA PETIT DO 12/15/19 Cephalexin (KEFLEX) 500 Mg Capsule 500 MG PO TID for 7 Days, #21 CAP Prov: VIRGINIA PETIT DO 12/15/19 Justicifation of Admission Dx: Justifications for Admission: Justification of Admission Dx: N/A VIRGINIA PETIT DO Dec 15, 2019 00:21
[2019-12-15 01:03] LABS: CLARITY,URINE TURBID; COLOR,URINE RED
[2019-12-15 01:08] VITALS: BP 162/68
[2019-12-15 01:14] LABS: RBC,URINE TNTC /HPF (0-2)
[2019-12-15 01:15] LABS: BACTERIA,URINE FEW /HPF (0-FEW); WBC,URINE 20-40 /HPF (0-4)
[2019-12-15] MEDS ORDERED: HYDR-3164 PO (01:23)
[2019-12-15] MEDS ORDERED: CEPH-264 PO (01:23)
[2019-12-15] MEDS ORDERED: fentaNYL PF VIAL 100 MCG/2 ML VIAL IV ONE (01:30)
[2019-12-15] MEDS ORDERED: cefTRIAXone IV Push 1 GM VIAL. IVP ONE (02:00)
[2019-12-19] MEDS ORDERED: INSU100C4 SQ (11:17)
[2019-12-19] MEDS ORDERED: OMEP20CA16 PO (11:17)
[2019-12-19] MEDS ORDERED: INSU100I13 SQ (11:17)
[2019-12-19] MEDS ORDERED: CLOP75TA PO (11:17)
[2019-12-19] MEDS ORDERED: ASPI-630 PO (11:17)
[2019-12-19] MEDS ORDERED: DULO30CA2 PO (11:17)
[2019-12-19] MEDS ORDERED: ATOR40TA59 PO (11:17)
[2019-12-19] MEDS ORDERED: AMLO10TA8 PO (11:17)
[2019-12-19] MEDS ORDERED: GABA600T7 PO (11:17)
[2019-12-19] MEDS ORDERED: CEPH-264 PO (14:54)
== END 2019-12-15 01:43 | disposition home or self-care (01) ==
LOC: ER 22:14
DX: N30.01 Acute cystitis with hematuria (principal); R53.83 Other fatigue; E10.9 Type 1 diabetes mellitus without complications; I10 Essential (primary) hypertension; G43.909 Migraine, unspecified, not intractable, without status migrainosus; N18.9 Chronic kidney disease, unspecified; Z98.890 Other specified postprocedural states; Z88.6 Allergy status to analgesic agent; Z88.1 Allergy status to other antibiotic agents; Z88.8 Allergy status to other drugs, medicaments and biological substances; Z91.040 Latex allergy status
CPT/HCPCS: 36415; 74176; 80053; 81001; 82553; 83690; 83735; 85025; 85610; 85730; 87086; 96361; 96374; 96375; 96376; 99285; J0696; J2405; J3010; J7030

== ENCOUNTER → 2019-12-15 | Outpatient (CLI) | payer OTHER ==
[~2019-12-15] MED LIST changes: +ASPI-630 PO; +CEPH-264 PO; +DULO30CA2 PO; +GABA600T7 PO; +OMEP20CA16 PO
[2019-12-15 01:08] VITALS: BP 162/68
== END | disposition home or self-care (01) ==
LOC: LAB 13:48
PROVIDERS: ATTEND Internal Medicine Cardiovascular Disease
DX: Z01.812 Encounter for preprocedural laboratory examination (principal); R06.00 Dyspnea, unspecified; Z20.828 Contact with and (suspected) exposure to other viral communicable diseases
CPT/HCPCS: U0003-CS

== ENCOUNTER → 2019-12-19 | Outpatient (CLI) | payer OTHER ==
[2019-12-15 01:08] VITALS: BP 162/68
--- NOTE | 2019-12-19 13:53 | RAD ---
EXAM: CT Chest without IV contrast INDICATION: Reason: Dyspnea. CHF VS ILD / Spl. Instructions: / History: TECHNIQUE: Multi-detector row CT images were acquired from the thoracic inlet through the upper abdomen without the use of IV contrast. Sagittal and coronal images were acquired from the transaxial data. All CT scans performed at this facility utilize dose optimization techniques as appropriate to the exam, including the following: Automated exposure control and adjustment of the mA and/or KV according to patient size (this includes techniques or standardized protocols for targeted exams where dose is indication/reason for exam). COMPARISON: Chest x-ray of 12/10/2019, 2 views FINDINGS: The absence of IV contrast limits evaluation of soft tissue pathology. CARDIOVASCULAR: Moderately enlarged heart. Multivessel dense coronary calcifications. No pericardial effusion. Normal caliber thoracic aorta without significant calcifications. MEDIASTINUM & JHONY: Multiple mildly enlarged mediastinal lymph nodes, largest measuring 1.45 cm at the precarinal cuca station. There is slitlike narrowing of the trachea in the anterior-posterior direction with the patient lying supine, best illustrated on image 14 of axial series 2 no central airway filling defects are noted. The esophagus is unremarkable as is the thyroid gland. There is mild left greater than right bilateral hilar adenopathy suggested as well. LUNGS: Lungs show near confluent but predominantly dependent groundglass attenuation with lower lobe interstitial thickening and atelectasis/consolidation. PLEURAL SPACE: This small bilateral pleural effusions are present. No pneumothorax. OSSEOUS & SOFT TISSUE: Diffuse osteosclerosis is present. No fracture or aggressive osseous lesions. Soft tissues show mild edema in the subcutaneous soft tissues. ABDOMEN: Included upper abdomen shows atrophic kidneys and extensive calcifications in the mid size abdominal vessels. There are sutures in the left upper quadrant abdomen compatible with previous bowel surgery. IMPRESSION: Patient's dyspnea is likely a reflection of heart failure, with interstitial and early alveolar pattern edema present in the lower lobes. Electronically signed by: Cyndi Drummond MD (12/19/2019 1:49 PM) [id number]
== END | disposition home or self-care (01) ==
LOC: CT 08:50
PROVIDERS: ATTEND Internal Medicine Critical Care Medicine
DX: J90 Pleural effusion, not elsewhere classified (principal); I25.10 Atherosclerotic heart disease of native coronary artery without angina pectoris; I70.0 Atherosclerosis of aorta; I51.7 Cardiomegaly; Q78.2 Osteopetrosis
CPT/HCPCS: 71250

== ENCOUNTER → 2020-01-19 | Outpatient (CLI) | payer OTHER ==
[2019-12-21 11:00] VITALS: BP 135/54
[~2020-01-19] MED LIST changes: +AMLO-186 PO; +AMLO-187 PO; -AMLO10TA8 PO; -AMLO5TAB10 PO; +IOHEXOL 300 MG/ML 100ML VIAL. IV ONE
--- NOTE | 2020-01-19 12:04 | RAD ---
Exam: CT abdomen/pelvis with and without intravenous contrast Indication: Hematuria, low back pain Comparison: CT abdomen pelvis 12/14/2019 Technique: Helical CT imaging performed of the abdomen and pelvis before and after the intravenous administration of 75 mm Omnipaque 300 intravenous contrast. Sagittal and coronal reformats were obtained. One or more of the following individualized dose reduction techniques were utilized for this examination: 1. Automated exposure control 2. Adjustment of the mA and/or kV according to patient size 3. Use of iterative reconstruction technique. Findings: Lower chest: There are small bilateral pleural effusions with groundglass opacities and interlobular septal thickening in the bases. Heart mildly enlarged. There is a central catheter tip noted in the right atrium. Liver: The liver is normal in size. No focal lesion. Gallbladder/Biliary Tree: Normal. Pancreas: Normal. Spleen: There are calcified splenic granulomas. Adrenal Glands: Normal. Kidneys/Ureters/Bladder: There are bilateral iliac fossa renal transplants. The transplant kidneys demonstrate delayed enhancement. The left iliac fossa transplant kidney is globular with obscuration of renal sinus fat, unchanged. There is a 2 mm hyperdensity in the right renal transplant (image 112, series 2), which could be a small calculus. Several larger hyperdensities near the hilum are may be surgical clips. Severe atrophy of the [place] kidneys. There is no excretion of contrast seen on delayed images. Ureters are not well visualized. There is bladder wall thickening, greatest anteriorly and superiorly. Reproductive Organs: Unremarkable. Stomach, small bowel, and colon: Stomach, small bowel, and colon are normal. Large volume of stool. Vasculature: Abdominal aorta is normal in caliber. There is diffuse arteriosclerosis of mesenteric vessels. Lymph Nodes: No lymphadenopathy. Peritoneum and retroperitoneum: No free fluid or free air. Bones: There is an internally fixed left proximal femur fracture. Findings of renal osteodystrophy. Impression: 1. Unchanged appearance of transplanted kidneys. The left enhancement kidney is globular in appearance with obscuration of renal sinus fat. The right transplant kidney has a 2 mm hyperdensity that could be a small calculus. Other hyperdensities near the hilum are likely surgical clips. No definite hydronephrosis. Ultrasound could be obtained to further evaluate as indicated. 2. There appears to be mild bladder wall thickening anteriorly and superiorly, although evaluation is limited due to incomplete distention of the bladder. 3. Small bilateral pleural effusions and findings of pulmonary edema. Electronically signed by: Kandis Diaz MD (01/19/2020 12:01 PM) [id number]
== END ==
LOC: CT 08:58
PROVIDERS: ATTEND Internal Medicine Nephrology
DX: N20.0 Calculus of kidney (principal); J90 Pleural effusion, not elsewhere classified; N26.1 Atrophy of kidney (terminal); N25.0 Renal osteodystrophy; Z94.0 Kidney transplant status; Z98.61 Coronary angioplasty status; I51.7 Cardiomegaly; Z88.1 Allergy status to other antibiotic agents; Z88.0 Allergy status to penicillin; Z91.040 Latex allergy status
CPT/HCPCS: 74178; Q9967

== ENCOUNTER 2020-02-11 01:00 | Emergency (ER) | payer OTHER ==
[~2020-02-11] VITALS: Ht 121.9 cm; Wt 63.6 kg
[~2020-02-11 01:00] MED LIST changes: -IOHEXOL 300 MG/ML 100ML VIAL. IV ONE
--- NOTE | 2020-02-11 01:21 | PHYS DOC ---
Past Medical History Past Medical History: Diabetes-Type I, Hypertension, Migraines, Pneumonia, Renal Failure, Other Additional Past Medical Histor: ACUTE RENAL FAILURE on dialysis, hypoglycemia Past Surgical History: Other Additional Past Surgical Histo: CHARLES KIDNEY TRANSPLANT,DIALYSIS CATH,DOUBLE BKA,HERNIA,L EYE IMPLANT Smoking Status: Never Smoker Alcohol Use: None Drug Use: None General Adult HPI: HPI: 54 yo M PMH DM, esrd (HD TuThSa -last FULL HD ), HTN, HLD, DM, bl BKA, TIA, CHF on 2L NC, PVD presents to the ed bibems with concern for weakness and hypoglycemia, glucose was 55, associated dry cough. Pt ate/drank but still felt his glucose was low (was 80 per ems). Patient reports he was on antibiotics for UTI? when discharged the end of December, is anuric. Is on Lantus 4 units every morning and takes NovoLog 6 units once a day -no recent changes in his regimen reports his glucose is tricky to manage. States he only took novolog 6 U today, no lantus. No known exposure to Covid during hemodialysis. Is on 2L NC. EMS reports 89% on RA, required 10L for 99%. In ED, on 6L at 95% (not best waveform). EMR was reviewed and patient was admitted to the hospital 2 months ago with concern for fluid overload s/p cardiac cath showing severe triple- vessel disease with no stents indicated or placed. Catheterization also showed severe pulmonary hypertension. Review of Systems: Review of Systems: Constitutional: Denies fever or chills, loss of taste or smell or anorexia Eyes: Denies change in visual acuity. [] HENT: Denies nasal congestion or sore throat or hemoptysis Respiratory: Denies cough or shortness of breath or orthopnea Cardiovascular: Denies chest pain or edema or syncope GI: Denies abdominal pain, nausea, vomiting, bloody stools or diarrhea. [] : Denies dysuria. [] Musculoskeletal: Denies back pain or joint pain. [] Integument: Denies rash. [] Neurologic: Denies headache, focal weakness or sensory changes or nuchal rigidity Endocrine: Denies polyuria or polydipsia. [] Lymphatic: Denies swollen glands. [] Psychiatric: Denies depression or anxiety. [] Heart Score: Risk Factors: Risk Factors: DM, Current or recent (<one month) smoker, HTN, HLP, family history of CAD, obesity. Risk Scores: Score 0 - 3: 2.5% MACE over next 6 weeks - Discharge Home Score 4 - 6: 20.3% MACE over next 6 weeks - Admit for Clinical Observation Score 7 - 10: 72.7% MACE over next 6 weeks - Early Invasive Strategies Allergies: Allergies: Allergies Coded Allergies Type Severity Reaction Last Updated Verified morphine Allergy Severe Nausea and Vomiting 07/19/19 Yes promethazine Allergy Severe Anaphylaxis 12/19/19 Yes amoxicillin Allergy Intermediate Rash 11/04/18 Yes butorphanol Allergy Intermediate Itching 02/14/19 Yes dexamethasone Allergy Intermediate Itching 11/04/18 Yes latex Allergy Intermediate Rash 11/04/18 Yes pregabalin Allergy Intermediate 04/27/19 Yes succinylcholine Allergy Intermediate 11/04/18 Yes Physical Exam: PE: Constitutional:not toxic appearing but is frail, rectal temp indicating hypothermia HENT: Normocephalic, atraumatic, bilateral external ears normal, Eyes: EOMI, conjunctiva normal, no discharge. [] Neck: Normal range of motion, no nuchal rigidity or meningismus Cardiovascular: S1 and S2 present Lungs & Thorax: Speaking in full sentences, bilateral equal chest rise Abdomen: Bowel sounds normal, soft, no tenderness, no masses, no pulsatile masses, multiple abdominal scars Skin: Warm, dry, no erythema, no rash. [] Extremities: No tenderness, no edema. [] Neurologic: Alert and oriented X 3, normal motor function, normal sensory function, no focal deficits noted. [] Psychologic: Affect normal, judgement normal, mood normal. [] Current Patient Data: Labs: Laboratory Tests Test 02/11/20 01:09 Glucose (Fingerstick) 97 mg/dL (70-99) EKG: EKG: Sinus rhythm at 97 bpm, left axis deviation, QTC 459, T wave inversions 1 and aVL, no ST elevations or ST depressions Radiology/Procedures: Radiology/Procedures: IMAGING REPORT Signed PATIENT: ELVIN MORFIN ACCOUNT: [id number] : 1965 LOCATION: ER AGE: 54 SEX: M EXAM STATUS: REG ER ORD. PHYSICIAN: VOHS,NATASHA M DO REASON: soa PROCEDURE: PORTABLE CHEST 1V Study: CR PORTABLE CHEST 1V Indication: Shortness of air. Comparison: 12/10/2019 Findings: Large bore central venous catheter tip via a right subclavian approach is unchanged in position with the tip projecting within the right atrium. The cardiomediastinal silhouette is enlarged and the central vasculature congested. Hazy infiltrates with a basilar predilection throughout both lungs on a background of increased interstitial markings. Bilateral pleural effusions thought to be small. No pneumothorax. Impression: Findings by radiography that are most typical of congestive heart failure/volume overload with interstitial and alveolar edema as well as small appearing effusions. A superimposed infectious process is not excluded. Recommend short-term follow-up to confirm improvement. Electronically signed by: TY BARNHART MD (02/11/2020 1:57 AM) [id number] DICTATED and SIGNED BY: TY BARNHART MD DATE: 02/11/20 0157 Course & Med Decision Making: Course & Med Decision Making Pertinent Labs and Imaging studies reviewed. (See chart for details) Concern for uncontrolled diabetes with hyperglycemia that has resolved (glucose in 200's). Patient afebrile with no leukocytosis or lactic acidosis. Chest x- ray is concerning for volume overload versus CHF although patient is lying at 30-deg HOB elevated and sleeping comfortably, 94% on 2L NC and states "on no I'm not overloaded, I jjust had HD and I feel fine"). BP is 154/80's. We discussed infection workup due to hypoglycemia -pt declines Covid and influenza testing stating he feels its "not necessary." Sister at bedside also agrees with this plan, states patient has been acting appropriately and she is not concerned for any infectious process at this time. Will DC home with very strict ED return precautions were given for chest pain, increased work of breathing, orthopnea, dyspnea or hemoptysis. Encouraged urgent outpatient follow-up with PMD and nephrology. Life-threatening processes were considered but are low suspicion at this time, given history and physical exam. Pt was educated on all prescription medications and adverse effects. All patient's questions were answered and pt was stable at time of discharge. Life/limb-threatening differential includes but is not limited to, surgical abdomen (appendicitis, cholecystitis, diverticulitis, inflammatory bowel disease, abscess, perforation), meningitis, encephalitis, David's angina, end ocarditis, myocarditis, life-threatening rash (necrotizing fasciitis), gynecologic and urologic emergencies (testicular torsion, obstructive nephropathy, prostatitis), head and neck abscess, infection concerning for sepsis or shock, or respiratory failure. I spoken with the patient and her caregivers. I explained the patient's condition, diagnoses and treatment plan based on the information available to me at this time. I have answered the patient and her caregiver's questions and addressed any concerns. The patient and her caregivers have a good understanding of patient's diagnosis, condition and treatment plan as can be expected at this point. Vital signs have been stable. Patient's condition is stable and appropriate for discharge from the emergency department. Patient will pursue further outpatient evaluation with primary care physician or other designated or consulting physician as outlined in the discharge instructions. The patient and/or caregivers are agreeable to this plan of care and follow-up instructions have been explained in detail. The patient and/or caregivers have received these instructions in written form and have expressed an understanding of the discharge instructions. The patient and/or caregivers are aware that any significant change of condition or worsening of symptoms should prompt immediate return to this or the closest emergency department or call to [facility]. Mariaelena Disclaimer: [employer] Disclaimer: This electronic medical record was generated, in whole or in part, using a voice recognition dictation system. Departure Departure Impression: Primary Impression: Volume overload Additional Impression: Hypoglycemia Disposition: 01 DC HOME SELF CARE/HOMELESS Condition: STABLE Referrals: FLAVIA FERNANDES MD (PCP) in 2-5 days for reevaluation Patient Instructions: Hemodialysis, [id number], Hypoglycemia (Low Blood Sugar) Additional Instructions: FOLLOW UP WITH NEPHROLOGY: [facility] Address: [address] [place] [id number] EMERGENCY DEPARTMENT GENERAL DISCHARGE INSTRUCTIONS Thank you for coming to [facility] Emergency Department (ED) tod ay and trusting us with you care. We trust that you had a positive experience in our Emergency Department. If you wish to speak to the department management, you may call the Director at [phone]. YOUR FOLLOW UP INSTRUCTIONS ARE FOLLOWS: 1. Do you have a private Doctor? If you do not have a private doctor, please ask for a resource list of physicians or clinics that may be able to assist you with follow up care. 2. The Emergency Physicain has interpreted your x-rays. The X-Ray specialist will also review them. If there is a change in the findings, you will be notified in 48 hours when at all possible. 3. A lab test or culture has been done, your results will be reviewed and you will be notified if you need a change in treatment. ADDITIONAL INSTRUCTIONS AND INFORMATION: 1. Your care today has been supervised by a physician who is specially trained in emergency care. Many problems require more than one evaluation for a complete diagnosis and treatment. We recommend that you schedule your follow up appointment as recommended to ensure complete treatment of you illness or injury. If you are unable to obtain follow up care and continue to have a problem, or if your condition worsens, we recommend that you return to the ED. 2. We are not able to safely determine your condition over the phone nor are we able to give sound medical advice over the phone. For these safety reasons, if you call for medical advice we will ask you to come to the ED for further evaluation. 3. If you have any questions regarding these discharge instructions please call the ED at [phone]. SAFETY INFORMATION: In the interest of safety, wellness, and injury prevention; we encourage you to wear your sealbelt, if you smoke; quite smoking, and we encourage family to use a protective helmet for bicycling and other sporting events that present an increased risk for head injury. IF YOUR SYMPTOMS WORSEN OR NEW SYMPTOMS DEVELOP, OR YOU HAVE CONCERNS ABOUT YOUR CONDITION; OR IF YOUR CONDITION WORSENS WHILE YOU ARE WAITING FOR YOUR FOLLOW UP APPOINTMENT; EITHER CONTACT YOUR PRIMARY CARE DOCTOR, THE PHYSICIAN WHOSE NAME AND NUMBER YOU WERE GIVEN, OR RETURN TO THE ED IMMEDIATELY. NATASHA DORAN DO Feb 11, 2020 01:21
[2020-02-11 01:37] LABS: BASO % 1 % (0-3); EOS # 0.2 x10^3/uL (0.0-0.7); EOS % 3 % (0-3); HEMATOCRIT 32.4 % (39.0-53.0); HEMOGLOBIN 10.9 g/dL (13.0-17.5); LYMPH # 0.7 x10^3/uL (1.0-4.8); LYMPH % 12 % (24-48); MEAN CORPUSCULAR HEMOGLOBIN 32 pg (25-35); MEAN CORPUSCULAR HGB CONC 34 g/dL (31-37); MEAN CORPUSCULAR VOLUME 94 fL (79-100); MONO # 0.3 x10^3/uL (0.0-1.1); MONO % 6 % (0-9); NEUT # 4.5 x10^3/uL (1.8-7.7); NEUT % 78 % (31-73); PLATELET COUNT 170 x10^3/uL (140-400); RED BLOOD COUNT 3.47 x10^6/uL (4.30-5.70); RED CELL DISTRIBUTION WIDTH 17.8 % (11.5-14.5); WHITE BLOOD COUNT 5.7 x10^3/uL (4.0-11.0)
[2020-02-11 01:48] LABS: CALCIUM 8.6 mg/dL (8.5-10.1); CREATININE 4.8 mg/dL (0.7-1.3); GFR 12.8; POTASSIUM 4.3 mmol/L (3.5-5.1)
--- NOTE | 2020-02-11 02:00 | RAD ---
Study: CR PORTABLE CHEST 1V Indication: Shortness of air. Comparison: 12/10/2019 Findings: Large bore central venous catheter tip via a right subclavian approach is unchanged in position with the tip projecting within the right atrium. The cardiomediastinal silhouette is enlarged and the central vasculature congested. Hazy infiltrates with a basilar predilection throughout both lungs on a background of increased interstitial markings. Bilateral pleural effusions thought to be small. No pneumothorax. Impression: Findings by radiography that are most typical of congestive heart failure/volume overload with interstitial and alveolar edema as well as small appearing effusions. A superimposed infectious process is not excluded. Recommend short-term follow-up to confirm improvement. Electronically signed by: TY BARNHART MD (02/11/2020 1:57 AM) [id number]
[2020-02-11 02:02] LABS: ALBUMIN 3.3 g/dL (3.4-5.0); DIRECT BILIRUBIN 0.1 mg/dL (0.0-0.2); TOTAL BILIRUBIN 0.6 mg/dL (0.2-1.0); TOTAL PROTEIN 8.7 g/dL (6.4-8.2)
[2020-02-11 02:39] VITALS: BP 156/69
== END 2020-02-11 03:00 | disposition home or self-care (01) ==
LOC: ER 01:00
DX: E87.70 Fluid overload, unspecified (principal); E16.2 Hypoglycemia, unspecified; R53.1 Weakness; E10.9 Type 1 diabetes mellitus without complications; I10 Essential (primary) hypertension; G43.909 Migraine, unspecified, not intractable, without status migrainosus; N18.9 Chronic kidney disease, unspecified; Z98.890 Other specified postprocedural states; Z88.6 Allergy status to analgesic agent; Z88.1 Allergy status to other antibiotic agents; Z91.040 Latex allergy status; Z88.8 Allergy status to other drugs, medicaments and biological substances
CPT/HCPCS: 36415; 71045; 80048; 80076; 82962; 83605; 83690; 83735; 83880; 84484; 85025; 87040; 93005; 99285; G0480

== ENCOUNTER 2020-03-02 13:51 | Observation (INO) | payer OTHER ==
[~2020-03-02] VITALS: Ht 170.2 cm; Wt 54.4 kg
[2020-03-02] MEDS ORDERED: PROCHLORPERAZINE 10 MG/2 ML VIAL. IV ONE (15:15)
[2020-03-02] MEDS ORDERED: diphenhydrAMINE 50 MG/ML VIAL IVP ONE (15:15)
[2020-03-02] MEDS ORDERED: fentaNYL PF VIAL 100 MCG/2 ML VIAL IVP ONE ×2 (15:15→17:00)
--- NOTE | 2020-03-02 15:19 | PHYS DOC ---
Past Medical History Past Medical History: Diabetes-Type I, Hypertension, Migraines, Pneumonia, Renal Failure, Other Additional Past Medical Histor: on dialysis, hypoglycemia Past Surgical History: Other Additional Past Surgical Histo: CHARLES KIDNEY TRANSPLANT,DIALYSIS CATH,DOUBLE BKA,HERNIA,L EYE IMPLANT Smoking Status: Never Smoker Alcohol Use: None Drug Use: None General Adult EDM: Chief Complaint: HEADACHE HPI: HPI: Patient is a 54 year old male who presents with the last 5 days he states he has had an intermittent left-sided headache that is throbbing but today is worse than usual. He states that he does get migraines but this feels worse than usual. 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 Coats. He does have light sensitivity and nausea. Patient does have left-sided neck pain. Patient denies vomiting, diarrhea, fever, neck stiffness, chest pain, shortness of breath, cough, abdominal pain, back pain, dizziness, focal weakness. Patient is moving all extremities. Patient rates his pain a 10 out of 10. Review of Systems: Review of Systems: Constitutional: Denies fever or chills. [] Eyes: Denies change in visual acuity. + Light sensitivity [] HENT: Denies nasal congestion or sore throat. [] Respiratory: Denies cough or shortness of breath. [] Cardiovascular: Denies chest pain or edema. [] GI: Denies abdominal pain. +nausea, denies vomiting, bloody stools or diarrhea. [] : Denies dysuria. [] Musculoskeletal: Denies back pain or joint pain. [] Integument: Denies rash. [] Neurologic: + headache, denies focal weakness or sensory changes. [] Endocrine: Denies polyuria or polydipsia. [] Lymphatic: Denies swollen glands. [] Psychiatric: Denies depression or anxiety. [] Heart Score: Risk Factors: Risk Factors: DM, Current or recent (<one month) smoker, HTN, HLP, family history of CAD, obesity. Risk Scores: Score 0 - 3: 2.5% MACE over next 6 weeks - Discharge Home Score 4 - 6: 20.3% MACE over next 6 weeks - Admit for Clinical Observation Score 7 - 10: 72.7% MACE over next 6 weeks - Early Invasive Strategies Current Medications: Current Medications Medications (Trade) Dose Ordered Sig/Penelope Start Time Stop Time Status Last Admin Dose Admin Diphenhydramine HCl (Benadryl) 25 mg 1X ONCE 03/02/20 15:15 03/02/20 15:16 DC Fentanyl Citrate (Fentanyl 2ml Vial) 50 mcg 1X ONCE 03/02/20 15:15 03/02/20 15:16 DC Prochlorperazine Edisylate (Compazine) 10 mg 1X ONCE 03/02/20 15:15 03/02/20 15:16 DC Allergies: Allergies: Allergies Coded Allergies Type Severity Reaction Last Updated Verified morphine Allergy Severe Nausea and Vomiting 07/19/19 Yes promethazine Allergy Severe Anaphylaxis 12/19/19 Yes amoxicillin Allergy Intermediate Rash 11/04/18 Yes butorphanol Allergy Intermediate Itching 02/14/19 Yes dexamethasone Allergy Intermediate Itching 11/04/18 Yes latex Allergy Intermediate Rash 11/04/18 Yes pregabalin Allergy Intermediate 04/27/19 Yes succinylcholine Allergy Intermediate 11/04/18 Yes Physical Exam: PE: Constitutional: Well developed, well nourished, no acute distress, non-toxic appearance. [] HENT: Normocephalic, atraumatic, bilateral external ears normal, oropharynx moist, no oral exudates, nose normal. [] Eyes: PERRLA, EOMI, conjunctiva normal, no discharge. Light sensitivity, left eye missing [] Neck: Normal range of motion, no tenderness, supple, no stridor. [] Cardiovascular:Heart rate regular rhythm, no murmur [] Lungs & Thorax: Bilateral breath sounds clear to auscultation [] Abdomen: Bowel sounds normal, soft, no tenderness, no masses, no pulsatile masses. [] Skin: Warm, dry, no erythema, no rash. [] Back: No tenderness, no CVA tenderness. [] Extremities: No tenderness, no cyanosis, no clubbing, ROM intact, no edema. [] Neurologic: Alert and oriented X 3, normal motor function, normal sensory func tion, no focal deficits noted. [] Psychologic: Affect normal, judgement normal, mood normal. Current Patient Data: Vital Signs: Vital Signs Date Time Temp Pulse Resp B/P (MAP) Pulse Ox O2 Delivery O2 Flow Rate FiO2 03/02/20 14:39 98.4 89 20 184/79 (114) 88 98.4 EKG: EKG: [] Radiology/Procedures: Radiology/Procedures: [] Impression: [facility] [address] [place], [place] [id number] IMAGING REPORT Signed PATIENT: ELVIN MORFIN ACCOUNT: [id number] : 1965 LOCATION: ER AGE: 54 SEX: M EXAM STATUS: REG ER ORD. PHYSICIAN: YOUNG LEON WORKFORCE DEVELOPMENT VICE PRESIDENT REASON: worst headche ever had with neck pain PROCEDURE: CT HEAD AND CERVICAL SPINE WO EXAM: CT Head without IV contrast INDICATION: Reason: worst headche ever had with neck pain / Spl. Instructions: / History: TECHNIQUE: Multi-detector row CT images were obtained of the head without the use of IV contrast. All CT scans performed at this facility utilize dose optimization techniques as appropriate to the exam, including the following: Automated exposure control and adjustment of the mA and/or KV according to patient size (this includes techniques or standardized protocols for targeted exams where dose is indication/reason for exam). COMPARISON: Noncontrast head CT of 09/20/2019 FINDINGS: BRAIN PARENCHYMA: No evidence of acute intraparenchymal hemorrhage or infarct. No abnormal parenchymal density or mass. VENTRICLES & EXTRA-AXIAL SPACES: Ventricles are within normal limits. Basilar cisterns are patent. No pathologic extra-axial fluid collection or mass. ORBITS: Left phthisis bulbi. Right lens is not well seen and may be surgically absent. Otherwise right orbit and globe are unremarkable. SINUSES: Visualized paranasal sinuses and mastoid air cells are clear. OSSEOUS & SOFT TISSUES: Calvarium and skull base are intact. IMPRESSION: No acute intracranial pathology. EXAM: CT Cervical Spine without IV contrast INDICATION: Reason: worst headche ever had with neck pain / Spl. Instructions: / History: TECHNIQUE: Multi-detector row CT images were obtained through the cervical spine without the use of IV contrast. Post-processing sagittal and coronal reconstructed images were obtained for interpretation. All CT scans performed at this facility utilize dose optimization techniques as appropriate to the exam, including the following: Automated exposure control and adjustment of the mA and/or KV according to patient size (this includes techniques or standardized protocols for targeted exams where dose is indication/reason for exam). COMPARISON: Same day head CT FINDINGS: CRANIOCERVICAL JUNCTION: Unremarkable. ALIGNMENT: Alignment shows mild levoscoliosis but otherwise is within normal limits. OSSEOUS: No evidence of fracture or bone destruction. DISC SPACES: Unremarkable. FACET JOINTS: Unremarkable. SPINAL CANAL: Unremarkable. NEUROFORAMINA: Unremarkable. SOFT TISSUES: Partially imaged right jugular approach central venous catheter. IMPRESSION: No acute findings in the cervical spine on CT. Electronically signed by: Rey Drummond MD (03/02/2020 4:42 PM) [id number] DICTATED and SIGNED BY: REY DRUMMOND MD DATE: 03/02/20 [id number] 0 Course & Med Decision Making: Course & Med Decision Making Pertinent Labs and Imaging studies reviewed. (See chart for details) See HPI. Speaks in full clear sentences. Patient is missing his left eye. Right eye is PERRLA. Skin pink warm and dry. He is slightly hypertensive in the 180s. Patient is on blood thinner. Answers all my questions appropriately. Alert and oriented x4. No facial droop. NIH 0. He has a history of diabetes, high cholesterol, CHF, gastroparesis, CAD, ED RSD, hypertension, migraines, bilateral BKA. Patient is given Compazine, Fentanyl, Benadryl IV. He states this is brought his pain down to a 6 out of 10. Blood work unremarkable. CT head shows no acute findings. Blood pressure is 160 over 70s. Patient states his pain is back. I have offered him admission. He is given Fiorcet and another dose of fentanyl and some Zofran. He states he would like to be admitted. Patient to be admitted by the hospitalist. [] Mariaelena Disclaimer: Mariaelena Disclaimer: This electronic medical record was generated, in whole or in part, using a voice recognition dictation system. NIHSS Stroke Scale NIH Stroke Scale: NIH Stroke Scale Response (Comments) Value Level of Consciousness: 0 Alert/Responsive 0 LOC Questions: 0 Answers both correctly 0 LOC Commands: 0 Performs both tasks 0 Best Gaze: 0 Normal 0 Visual: 0 No visual loss 0 Facial Palsy: 0 Normal, symmetrical 0 Motor - Left Arm 0 No drift 0 Motor - Right Arm 0 No drift 0 Motor - Left Leg 0 No drift (Bilateral BKA) 0 Motor: Right Leg 0 No drift (bILATERAL BKA) 0 Limb Ataxia: 0 Absent 0 Sensory: 0 No loss 0 Best Language: 0 Normal 0 Dysathria: 0 Normal 0 Extinction and Inattention: 0 Normal 0 Total 0 Departure Departure Impression: Primary Impression: Migraine Qualified Codes: G43.911 - Migraine, unspecified, intractable, with status migrainosus Disposition: 09 ADMITTED INPT THIS HOSP Condition: STABLE Referrals: FLAVIA FERNANDES MD (PCP) YOUNG LEON APRN Mar 02, 2020 15:19
[2020-03-02 16:02] LABS: BASO % 1 % (0-3); EOS # 0.1 x10^3/uL (0.0-0.7); EOS % 3 % (0-3); HEMATOCRIT 31.9 % (39.0-53.0); HEMOGLOBIN 10.6 g/dL (13.0-17.5); LYMPH # 0.5 x10^3/uL (1.0-4.8); LYMPH % 16 % (24-48); MEAN CORPUSCULAR HEMOGLOBIN 32 pg (25-35); MEAN CORPUSCULAR HGB CONC 33 g/dL (31-37); MEAN CORPUSCULAR VOLUME 96 fL (79-100); MONO # 0.2 x10^3/uL (0.0-1.1); MONO % 6 % (0-9); NEUT # 2.1 x10^3/uL (1.8-7.7); NEUT % 74 % (31-73); PLATELET COUNT 137 x10^3/uL (140-400); RED BLOOD COUNT 3.32 x10^6/uL (4.30-5.70); RED CELL DISTRIBUTION WIDTH 18.6 % (11.5-14.5); WHITE BLOOD COUNT 2.8 x10^3/uL (4.0-11.0)
[2020-03-02 16:14] LABS: CALCIUM 8.5 mg/dL (8.5-10.1); CREATININE 4.5 mg/dL (0.7-1.3); GFR 13.8; POTASSIUM 3.8 mmol/L (3.5-5.1)
[2020-03-02 16:28] LABS: ALBUMIN 3.5 g/dL (3.4-5.0); ALBUMIN/GLOBULIN RATIO 0.6 (1.0-1.7); TOTAL BILIRUBIN 0.6 mg/dL (0.2-1.0)
[2020-03-02] MEDS ORDERED: BUTALB/APAP/CAFEIN 50/325/40MG TABLET. PO ONE (16:45)
--- NOTE | 2020-03-02 16:46 | RAD ---
EXAM: CT Head without IV contrast INDICATION: Reason: worst headche ever had with neck pain / Spl. Instructions: / History: TECHNIQUE: Multi-detector row CT images were obtained of the head without the use of IV contrast. All CT scans performed at this facility utilize dose optimization techniques as appropriate to the exam, including the following: Automated exposure control and adjustment of the mA and/or KV according to patient size (this includes techniques or standardized protocols for targeted exams where dose is indication/reason for exam). COMPARISON: Noncontrast head CT of 09/20/2019 FINDINGS: BRAIN PARENCHYMA: No evidence of acute intraparenchymal hemorrhage or infarct. No abnormal parenchymal density or mass. VENTRICLES & EXTRA-AXIAL SPACES: Ventricles are within normal limits. Basilar cisterns are patent. No pathologic extra-axial fluid collection or mass. ORBITS: Left phthisis bulbi. Right lens is not well seen and may be surgically absent. Otherwise right orbit and globe are unremarkable. SINUSES: Visualized paranasal sinuses and mastoid air cells are clear. OSSEOUS & SOFT TISSUES: Calvarium and skull base are intact. IMPRESSION: No acute intracranial pathology. EXAM: CT Cervical Spine without IV contrast INDICATION: Reason: worst headche ever had with neck pain / Spl. Instructions: / History: TECHNIQUE: Multi-detector row CT images were obtained through the cervical spine without the use of IV contrast. Post-processing sagittal and coronal reconstructed images were obtained for interpretation. All CT scans performed at this facility utilize dose optimization techniques as appropriate to the exam, including the following: Automated exposure control and adjustment of the mA and/or KV according to patient size (this includes techniques or standardized protocols for targeted exams where dose is indication/reason for exam). COMPARISON: Same day head CT FINDINGS: CRANIOCERVICAL JUNCTION: Unremarkable. ALIGNMENT: Alignment shows mild levoscoliosis but otherwise is within normal limits. OSSEOUS: No evidence of fracture or bone destruction. DISC SPACES: Unremarkable. FACET JOINTS: Unremarkable. SPINAL CANAL: Unremarkable. NEUROFORAMINA: Unremarkable. SOFT TISSUES: Partially imaged right jugular approach central venous catheter. IMPRESSION: No acute findings in the cervical spine on CT. Electronically signed by: Cyndi Drummond MD (03/02/2020 4:42 PM) [id number]
[2020-03-02] MEDS ORDERED: ONDANSETRON PF 4 MG/2 ML VIAL. IVP ONE (17:15)
[2020-03-02 18:30] VITALS: BP 148/50
[2020-03-02] MEDS ORDERED: PROCHLORPERAZINE 10 MG/2 ML VIAL. IV PRN (19:30)
[2020-03-02] MEDS ORDERED: ACETAMINOPHEN 325 MG TABLET. PO PRN (19:30)
[2020-03-02] MEDS ORDERED: ONDANSETRON PF 4 MG/2 ML VIAL. IVP PRN (19:45)
[2020-03-02] MEDS ORDERED: DEXTROSE 50% 25 GM / 50ML DISP.SYRIN. IV PRN ×2 (19:45→21:30)
[2020-03-02] MEDS ORDERED: SENNOSIDES 8.6 MG TABLET PO PRN (19:45)
[2020-03-02] MEDS ORDERED: DOCUSATE SODIUM 100 MG CAPSULE. PO PRN (19:45)
[2020-03-02] MEDS ORDERED: LABETALOL 20 MG/4 ML DISP.SYRIN. IVP PRN (19:45)
--- NOTE | 2020-03-02 19:52 | PDOC1 ---
History and Physical Date of Service: DOS: DATE: 03/02/20 TIME: 19:45 History of Present Illness: HPI: 54 year old male with past medical history of diabetes mellitus, ESRD on HD, renal transplant x2 which have both failed and restarted dialysis in July 2018 who presents with the last 5 days he states he has had an intermittent left- sided headache that is throbbing but today is worse than usual. He states that he does get migraines but this feels worse he has never had he did go to dialysis today and his rn stars is Dr. Coats. He does have light sensitivity and nausea. Patient does have left-sided neck pain and photophobia patient denies vomiting, diarrhea, fever, neck stiffness, chest pain, shortness of breath, cough, abdominal pain, back pain, dizziness, focal weakness. Patient is moving all extremities. Patient rates his pain a 10 out of 10. Past Medical/Surgical History: PMH/PSH: Past Medical History: Diabetes-Type I, Hypertension, Migraines, Pneumonia, Renal Failure, on dialysis, hypoglycemia Past Surgical History: [employer] TRANSPLANT,DIALYSIS CATH,DOUBLE BKA,HERNIA,L EYE IMPLANT Allergies: Allergies: Coded Allergies: morphine (Verified Allergy, Severe, Nausea and Vomiting, 07/19/19) promethazine (Verified Allergy, Severe, Anaphylaxis, 12/19/19) Tolerates compazine, sob, "throat swelling" amoxicillin (Verified Allergy, Intermediate, Rash, 11/04/18) TOLERATES ZOSYN butorphanol (Verified Allergy, Intermediate, Itching, 02/14/19) Tolerates hydrocodone dexamethasone (Verified Allergy, Intermediate, Itching, 11/04/18) latex (Verified Allergy, Intermediate, Rash, 11/04/18) pregabalin (Verified Allergy, Intermediate, 04/27/19) gabapentin ok succinylcholine (Verified Allergy, Intermediate, 11/04/18) Family History: Family History: Reviewed and none reported Social History: Social History: Smoking Status: Never Smoker Alcohol Use: None Drug Use: None Current Medications: Current Medications Current Medications Diphenhydramine HCl (Benadryl) 25 mg 1X ONCE IVP Last administered on 03/02/20at 15:46; Start 03/02/20 at 15:15; Stop 03/02/20 at 15:16; Status DC Prochlorperazine Edisylate (Compazine) 10 mg 1X ONCE IV Last administered on 03/02/20at 15:47; Start 03/02/20 at 15:15; Stop 03/02/20 at 15:16; Status DC Fentanyl Citrate (Fentanyl 2ml Vial) 50 mcg 1X ONCE IVP Last administered on 03/02/20at 15:47; Start 03/02/20 at 15:15; Stop 03/02/20 at 15:16; Status DC Acetaminophen/ Butalbital/ Caffeine (Fioricet) 1 tab 1X ONCE PO Last administered on 03/02/20at 16:58; Start 03/02/20 at 16:45; Stop 03/02/20 at 16:46; Status DC Fentanyl Citrate (Fentanyl 2ml Vial) 50 mcg 1X ONCE IVP Last administered on 03/02/20at 17:17; Start 03/02/20 at 17:00; Stop 03/02/20 at 17:02; Status DC Ondansetron HCl (Zofran) 4 mg 1X ONCE IVP Last administered on 03/02/20at 17:16; Start 03/02/20 at 17:15; Stop 03/02/20 at 17:16; Status DC Acetaminophen (Tylenol) 650 mg PRN Q6HRS PRN PO HEADACHE; Start 03/02/20 at 19:30 Prochlorperazine Edisylate (Compazine) 10 mg PRN Q6HRS PRN IV NAUSEA/VOMITING; Start 03/02/20 at 19:30 Topiramate (Topamax) 25 mg QHS PO ; Start 03/02/20 at 21:00 Sennosides (Senna) 17.2 mg PRN BID PRN PO CONSTIPATION; Start 03/02/20 at 19:45 Docusate Sodium (Colace) 100 mg PRN DAILY PRN PO HARD STOOLS; Start 03/02/20 at 19:45 Ondansetron HCl (Zofran) 4 mg PRN Q6HRS PRN IVP NAUSEA/VOMITING; Start 03/02/20 at 19:45 Dextrose (Dextrose 50%-Water Syringe) 12.5 gm PRN Q15MIN PRN IV SEE COMMENTS; Start 03/02/20 at 19:45 Labetalol HCl (Normodyne Iv Push) 20 mg PRN Q2HRS PRN IVP HYPERTENSION; Start 03/02/20 at 19:45 Active Scripts Active Tylenol (Acetaminophen) 325 Mg Tablet 650 Mg PO PRN Q4HRS PRN 30 Days Polyethylene Glycol 3350 17 Gm Powd.pack 17 Gm PO DAILY Reported Keflex (Cephalexin) 500 Mg Capsule 1 Cap PO TID 7 Days started on Sunday12-14-2019 is to be on it for total of 7 days Gabapentin 600 Mg Tablet 600 Mg PO HS Cymbalta (Duloxetine Hcl) 30 Mg Capsule.dr 1 Cap PO HS Clopidogrel (Clopidogrel Bisulfate) 75 Mg Tablet 1 Tab PO HS Novolog (Insulin Aspart) 100 Unit/1 Ml Cartridge Unknown Dose SQ TIDWMEALS Lantus Solostar (Insulin Glargine,Hum.rec.anlog) 100 Unit/1 Ml Insuln.pen 4 Unit SQ BID Omeprazole 20 Mg Capsule.dr 1 Cap PO HS Atorvastatin Calcium 40 Mg Tablet 1 Tab PO WEEKLY Aspirin 81 Mg Tab.chew 1 Tab PO HS Amlodipine Besylate 10 Mg Tablet 10 Mg PO HS Carvedilol 25 Mg Tablet 25 Mg PO BIDWMEALS Clonidine Hcl 0.2 Mg Tablet 0.4 Mg PO QHS ROS: Review of Systems Review of System REVIEW OF SYSTEMS: GENERAL: Denies weakness SKIN: No bruising, hair changes or rashes. EYES: No blurred, double or loss of vision. NOSE AND THROAT: No history of nosebleeds, hoarseness or sore throat. HEART: No history of palpitations, chest pain or shortness of breath on exertion. LUNGS: Denies cough, hemoptysis, wheezing or shortness of breath. GASTROINTESTINAL: Denies changes in appetite, nausea, vomiting, diarrhea or constipation. GENITOURINARY: No history of frequency, urgency, hesitancy or nocturia. NEUROLOGIC: Denies history of numbness, tingling, or tremor. PSYCHIATRIC: No history of panic, anxiety or depression. ENDOCRINE: No history of heat or cold intolerance, polyuria or polydipsia. EXTREMITIES: Denies joint pain, pain on walking or stiffness. Physical Exam: Vital Signs: Vital Signs Date Time Temp Pulse Resp B/P (MAP) Pulse Ox O2 Delivery O2 Flow Rate FiO2 03/02/20 17:17 18 100 Room Air 03/02/20 16:54 97 03/02/20 14:39 98.4 184/79 (114) 98.4 Physcial Exam: GEN: Moderate distress HEENT: Normal cephalic, atraumatic, external auditory canals are patent EYES: Extraocular muscles are intact, pupil are equally round and reactive to light and accommodation MUSCULOSKELETAL: Well developed , well nourished, good range of motion ENDOCRINE: No thyromegaly was palpated LYMPHATICS: No cervical chain or axillary nodes were noted HEMATOPOIETIC: No bruising NECK: Supple, no JVD, no thyromegaly was noted LUNGS: Clear to auscultation in all lung sarabia without rhonchi or wheezing HEART: RRR, S!, S2 present. Peripheral pulses intact, no obvious murmurs noted ABDOMEN: Soft, nontender. Positive bowel sounds, no organomegaly, normal bowel sounds EXTREMITIES: Bilateral lower extremity amputation NEUROLOGIC: Normal speech and tone. A&O x 3, moves all extremities, no obvious focal deficits PSYCHIATRIC: Normal affect, normal mood. Stable SKIN: No ulcerations or rashes, good skin turgor, no jaundice VASCULAR: Good capillary refill, neurovascular bundle appears to be intact Labs: Labs: Laboratory Tests Test 03/02/20 15:30 White Blood Count 2.8 x10^3/uL (4.0-11.0) Red Blood Count 3.32 x10^6/uL (4.30-5.70) Hemoglobin 10.6 g/dL (13.0-17.5) Hematocrit 31.9 % (39.0-53.0) Mean Corpuscular Volume 96 fL (79-100) Mean Corpuscular Hemoglobin 32 pg (25-35) Mean Corpuscular Hemoglobin Concent 33 g/dL (31-37) Red Cell Distribution Width 18.6 % (11.5-14.5) Platelet Count 137 x10^3/uL (140-400) Neutrophils (%) (Auto) 74 % (31-73) Lymphocytes (%) (Auto) 16 % (24-48) Monocytes (%) (Auto) 6 % (0-9) Eosinophils (%) (Auto) 3 % (0-3) Basophils (%) (Auto) 1 % (0-3) Neutrophils # (Auto) 2.1 x10^3/uL (1.8-7.7) Lymphocytes # (Auto) 0.5 x10^3/uL (1.0-4.8) Monocytes # (Auto) 0.2 x10^3/uL (0.0-1.1) Eosinophils # (Auto) 0.1 x10^3/uL (0.0-0.7) Basophils # (Auto) 0.0 x10^3/uL (0.0-0.2) Sodium Level 130 mmol/L (136-145) Potassium Level 3.8 mmol/L (3.5-5.1) Chloride Level 92 mmol/L (98-107) Carbon Dioxide Level 27 mmol/L (21-32) Anion Gap 11 (6-14) Blood Urea Nitrogen 22 mg/dL (8-26) Creatinine 4.5 mg/dL (0.7-1.3) Estimated GFR (Cockcroft-Gault) 13.8 BUN/Creatinine Ratio 5 (6-20) Glucose Level 410 mg/dL (70-99) Calcium Level 8.5 mg/dL (8.5-10.1) Total Bilirubin 0.6 mg/dL (0.2-1.0) Aspartate Amino Transf (AST/SGOT) 18 U/L (15-37) Alanine Aminotransferase (ALT/SGPT) 13 U/L (16-63) Alkaline Phosphatase 204 U/L (46-116) Total Protein 9.0 g/dL (6.4-8.2) Albumin 3.5 g/dL (3.4-5.0) Albumin/Globulin Ratio 0.6 (1.0-1.7) Laboratory Tests Test 03/02/20 15:30 White Blood Count 2.8 x10^3/uL (4.0-11.0) Red Blood Count 3.32 x10^6/uL (4.30-5.70) Hemoglobin 10.6 g/dL (13.0-17.5) Hematocrit 31.9 % (39.0-53.0) Mean Corpuscular Volume 96 fL (79-100) Mean Corpuscular Hemoglobin 32 pg (25-35) Mean Corpuscular Hemoglobin Concent 33 g/dL (31-37) Red Cell Distribution Width 18.6 % (11.5-14.5) Platelet Count 137 x10^3/uL (140-400) Neutrophils (%) (Auto) 74 % (31-73) Lymphocytes (%) (Auto) 16 % (24-48) Monocytes (%) (Auto) 6 % (0-9) Eosinophils (%) (Auto) 3 % (0-3) Basophils (%) (Auto) 1 % (0-3) Neutrophils # (Auto) 2.1 x10^3/uL (1.8-7.7) Lymphocytes # (Auto) 0.5 x10^3/uL (1.0-4.8) Monocytes # (Auto) 0.2 x10^3/uL (0.0-1.1) Eosinophils # (Auto) 0.1 x10^3/uL (0.0-0.7) Basophils # (Auto) 0.0 x10^3/uL (0.0-0.2) Sodium Level 130 mmol/L (136-145) Potassium Level 3.8 mmol/L (3.5-5.1) Chloride Level 92 mmol/L (98-107) Carbon Dioxide Level 27 mmol/L (21-32) Anion Gap 11 (6-14) Blood Urea Nitrogen 22 mg/dL (8-26) Creatinine 4.5 mg/dL (0.7-1.3) Estimated GFR (Cockcroft-Gault) 13.8 BUN/Creatinine Ratio 5 (6-20) Glucose Level 410 mg/dL (70-99) Calcium Level 8.5 mg/dL (8.5-10.1) Total Bilirubin 0.6 mg/dL (0.2-1.0) Aspartate Amino Transf (AST/SGOT) 18 U/L (15-37) Alanine Aminotransferase (ALT/SGPT) 13 U/L (16-63) Alkaline Phosphatase 204 U/L (46-116) Total Protein 9.0 g/dL (6.4-8.2) Albumin 3.5 g/dL (3.4-5.0) Albumin/Globulin Ratio 0.6 (1.0-1.7) Images: Images Negative head and cervical spine CT Assessment/Plan Assessment/Plan Hypertensive emergency Intractable headache Pancytopenia due to ESRD Hyperglycemia uncontrolled History of diabetes mellitus Admit to medicine for further management We will attempt pain control by starting with antiemetics, Topamax, sumatriptan, gabapentin Nephrology consult for dialysis Heparin for DVT prophylaxis Protonix GI prophylaxis ADA diet Full code Discussed with RN and SW Disposition inpatient care as above Surrogate decision maker is Taylor Cleveland Justifications for Admission Other Justification intractable headache BRYNN TORRES MD Mar 02, 2020 19:52
--- NOTE | 2020-03-02 20:00 | NUR ---
Pt. arrived on unit at 1830 per day shift RN. Pt. complains of pain at this time. MD was called for orders. Call light within reach and bed in lowest position. Will continue to monitor.
[2020-03-02] MEDS ORDERED: fentaNYL PF VIAL 100 MCG/2 ML VIAL IVP PRN (20:15)
[2020-03-02] MEDS ORDERED: diphenhydrAMINE 50 MG/ML VIAL IVP PRN (20:15)
[2020-03-02] MEDS ORDERED: TOPIRAMATE 25 MG TABLET. PO SCH (21:00)
[2020-03-02] MEDS ORDERED: CLOPIDOGREL BISULFATE 75 MG TABLET PO SCH (21:00)
[2020-03-02] MEDS ORDERED: PANTOPRAZOLE 40 MG TABLET.DR. PO SCH (21:00)
[2020-03-02] MEDS: CARVEDILOL 12.5 MG TABLET. PO SCH (21:00)
[2020-03-02] MEDS ORDERED: amLODIPine BESYLATE 10 MG TABLET PO SCH (21:00)
[2020-03-02] MEDS ORDERED: cloNIDine HCL 0.2 MG TABLET PO SCH (21:00)
[2020-03-02] MEDS ORDERED: GABAPENTIN 300 MG CAPSULE. PO SCH (21:00)
[2020-03-02] MEDS ORDERED: INSULIN LISPRO 300 UNITS/3 ML VIAL. SQ ONE (21:45)
[2020-03-02] MEDS ORDERED: SUMAtriptan SUCC 6 MG/0.5 ML VIAL. SQ ONE (21:45)
[2020-03-02] MEDS: INSULIN GLARGINE SYRINGE. SQ SCH (22:03)
[2020-03-02 23:16] VITALS: BP 179/66
[2020-03-03 00:20] VITALS: BP 146/63
[2020-03-03 03:08] VITALS: BP 164/75
[2020-03-03 07:15] VITALS: BP 169/79
[2020-03-03] MEDS: INSULIN LISPRO 300 UNITS/3 ML VIAL. SQ SCH ×2 (07:59→11:27)
[2020-03-03] MEDS: CARVEDILOL 12.5 MG TABLET. PO SCH (08:15)
[2020-03-03] MEDS: INSULIN GLARGINE SYRINGE. SQ SCH (08:17)
[2020-03-03 08:19] LABS: BASO % 1 % (0-3); EOS # 0.1 x10^3/uL (0.0-0.7); EOS % 3 % (0-3); HEMATOCRIT 29.2 % (39.0-53.0); HEMOGLOBIN 9.8 g/dL (13.0-17.5); LYMPH # 0.6 x10^3/uL (1.0-4.8); LYMPH % 22 % (24-48); MEAN CORPUSCULAR HEMOGLOBIN 32 pg (25-35); MEAN CORPUSCULAR HGB CONC 34 g/dL (31-37); MEAN CORPUSCULAR VOLUME 96 fL (79-100); MONO # 0.2 x10^3/uL (0.0-1.1); MONO % 9 % (0-9); NEUT # 1.7 x10^3/uL (1.8-7.7); NEUT % 65 % (31-73); PLATELET COUNT 141 x10^3/uL (140-400); RED BLOOD COUNT 3.05 x10^6/uL (4.30-5.70); RED CELL DISTRIBUTION WIDTH 18.4 % (11.5-14.5); WHITE BLOOD COUNT 2.7 x10^3/uL (4.0-11.0)
[2020-03-03 08:28] LABS: CALCIUM 8.9 mg/dL (8.5-10.1); CREATININE 5.8 mg/dL (0.7-1.3); GFR 10.3; MAGNESIUM 2.2 mg/dL (1.8-2.4); PHOSPHORUS 4.6 mg/dL (2.6-4.7); POTASSIUM 4.1 mmol/L (3.5-5.1)
[2020-03-03] MEDS ORDERED: POLYETHYLENE GLYCOL 3350 17 GM PACKET. PO SCH (09:00)
[2020-03-03] MEDS ORDERED: PROC10TA57 PO (09:40)
[2020-03-03] MEDS ORDERED: DIPH25CA58 PO (09:40)
[2020-03-03] MEDS ORDERED: SUMA25TA4 PO (09:40)
--- NOTE | 2020-03-03 09:41 | DISCH ---
DISCHARGE INSTRUCTIONS Condition on Discharge Condition on Discharge: Stable Activity After Discharge Activity Instructions for Disc: Activity as tolerated Lifting Instructions after Dis: No heavy lifting, No pulling or pushing Exercise Instruction after Dis: Exercise per therapy, Progress as tolerated Driving Instructions after Dis: Do not drive Weight Bearing Status after Di: As tolerated Diet after Discharge Diet after Discharge: Renal Dialysis, Diabetic No Calorie Level Diet Texture: Regular Liquid Texture: Thin Liquid Swallowing Supervision: None needed Wound Incision Care Wound/Incision Care: Reinforce dressing PRN Checks after Discharge Checks after discharge: Check blood press - daily, Check blood sugar, ac/hs, Check your Temp as needed, Weigh Yourself Daily Contacting the DR. after DC Call your doctor for: If your condition worsens Follow-Up Follow up with: PCP within 2 weeks of discharge Follow Up With: Nephrologists for your planned dialysis TTS Treatment/Equipment after DC Adaptive Equipment Issued: None Discharge Respiratory Equipmen: Oxygen BRYNN TORRES MD Mar 03, 2020 09:41
--- NOTE | 2020-03-03 10:18 | NUR ---
SW following. Discussed with RN, pt from home, room air, renal diet. Discharge order for home with self care. SW notified Jeff Dickson (ph: [phone]) of pt discharge today. No further SW needs.
[2020-03-03 11:07] VITALS: BP 167/88
--- NOTE | 2020-03-03 11:20 | NUR ---
Discharge instructions and belongings reviewed with patient, verbalized understanding. Patient will be escorted out via wheelchair.
--- NOTE | 2020-03-03 14:16 | PDOC2 ---
CONSULT Date of Consult Date of Consult DATE: 03/03/20 TIME: 10:00 Reason for Consult Reason for Consult: ESRD Identification/Chief Complaint Chief Complaint Migraines Source Source: Chart review, Patient History of Present Illness Reason for Visit: 54 year old male with past medical history of diabetes mellitus, ESRD on HD, renal transplant x2 which have both failed and restarted dialysis in July 2018 who presents with the last 5 days he states he has had an intermittent left- sided headache that is throbbing but today is worse than usual. He states that he does get migraines but this feels worse he has never had he did go to dialysis today and his frontend engineer is Dr. Coats. He does have light sensitivity and nausea. Patient does have left-sided neck pain and photophobia patient denies vomiting, diarrhea, fever, neck stiffness, chest pain, shortness of breath, cough, abdominal pain, back pain, dizziness, focal weakness. Patient is moving all extremities. Patient rates his pain a 10 out of 10. Currently feels better. Last HD was 03/02 Past Medical History Cardiovascular: CAD, HTN, Hyperlipidemia, Other Pulmonary: No pertinent hx CENTRAL NERVOUS SYSTEM: Migraine GI: GERD Heme/Onc: Anemia NOS, Other Psych: No pertinent hx Infectious disease: No pertinent hx Renal/: Chronic renal insuff Endocrine: Diabetes, Hyperparathyroidism Past Surgical History Past Surgical History: Other Family History Family History: No Significant, Heart Disease Social History ALCOHOL: none Drugs: None Lives: with Family Current Problem List Problem List Problems Medical Problems: (1) Migraine Status: Acute Current Medications Current Medications Current Medications Diphenhydramine HCl (Benadryl) 25 mg 1X ONCE IVP Last administered on 03/02/20at 15:46; Start 03/02/20 at 15:15; Stop 03/02/20 at 15:16; Status DC Prochlorperazine Edisylate (Compazine) 10 mg 1X ONCE IV Last administered on 03/02/20at 15:47; Start 03/02/20 at 15:15; Stop 03/02/20 at 15:16; Status DC Fentanyl Citrate (Fentanyl 2ml Vial) 50 mcg 1X ONCE IVP Last administered on 03/02/20at 15:47; Start 03/02/20 at 15:15; Stop 03/02/20 at 15:16; Status DC Acetaminophen/ Butalbital/ Caffeine (Fioricet) 1 tab 1X ONCE PO Last administered on 03/02/20at 16:58; Start 03/02/20 at 16:45; Stop 03/02/20 at 16:46; Status DC Fentanyl Citrate (Fentanyl 2ml Vial) 50 mcg 1X ONCE IVP Last administered on 03/02/20at 17:17; Start 03/02/20 at 17:00; Stop 03/02/20 at 17:02; Status DC Ondansetron HCl (Zofran) 4 mg 1X ONCE IVP Last administered on 03/02/20at 17:16; Start 03/02/20 at 17:15; Stop 03/02/20 at 17:16; Status DC Acetaminophen (Tylenol) 650 mg PRN Q6HRS PRN PO HEADACHE; Start 03/02/20 at 19:30; Stop 03/03/20 at 12:03; Status DC Prochlorperazine Edisylate (Compazine) 10 mg PRN Q6HRS PRN IV NAUSEA/VOMITING Last administered on 03/02/20at 19:52; Start 03/02/20 at 19:30; Stop 03/03/20 at 12:03; Status DC Topiramate (Topamax) 25 mg QHS PO ; Start 03/02/20 at 21:00; Stop 03/03/20 at 12:03; Status DC Sennosides (Senna) 17.2 mg PRN BID PRN PO CONSTIPATION; Start 03/02/20 at 19:45; Stop 03/03/20 at 12:03; Status DC Docusate Sodium (Colace) 100 mg PRN DAILY PRN PO HARD STOOLS; Start 03/02/20 at 19:45; Stop 03/03/20 at 12:03; Status DC Ondansetron HCl (Zofran) 4 mg PRN Q6HRS PRN IVP NAUSEA/VOMITING Last administered on 03/02/20at 22:05; Start 03/02/20 at 19:45; Stop 03/03/20 at 12:03; Status DC Dextrose (Dextrose 50%-Water Syringe) 12.5 gm PRN Q15MIN PRN IV SEE COMMENTS; Start 03/02/20 at 19:45; Status Cancel Labetalol HCl (Normodyne Iv Push) 20 mg PRN Q2HRS PRN IVP HYPERTENSION Last administered on 03/02/20at 23:01; Start 03/02/20 at 19:45; Stop 03/03/20 at 12:03; Status DC Amlodipine Besylate (Norvasc) 10 mg HS PO ; Start 03/02/20 at 21:00; Stop 03/03/20 at 12:03; Status DC Atorvastatin Calcium (Lipitor) 40 mg Thakur PO ; Start 03/07/20 at 09:00; Stop 03/03/20 at 12:03; Status DC Clonidine HCl (Catapres) 0.4 mg QHS PO ; Start 03/02/20 at 21:00; Stop 03/03/20 at 12:03; Status DC Clopidogrel Bisulfate (Plavix) 75 mg HS PO ; Start 03/02/20 at 21:00; Stop 03/03/20 at 12:03; Status DC Polyethylene Glycol (miraLAX PACKET) 17 gm DAILY PO Last administered on at 08:15; Start 03/03/20 at 09:00; Stop 03/03/20 at 12:03; Status DC Carvedilol (Coreg) 25 mg BIDWMEALS PO Last administered on 03/03/20at 08:15; Start 03/02/20 at 21:00; Stop 03/03/20 at 12:03; Status DC Insulin Glargine (Lantus Syringe) 4 unit BID SQ Last administered on 03/03/20at 08:17; Start 03/02/20 at 21:00; Stop 03/03/20 at 12:03; Status DC Pantoprazole Sodium (Protonix) 40 mg HS PO ; Start 03/02/20 at 21:00; Stop 03/03/20 at 12:03; Status DC Gabapentin (Neurontin) 600 mg QHS PO ; Start 03/02/20 at 21:00; Stop 03/03/20 at 12:03; Status DC Fentanyl Citrate (Fentanyl 2ml Vial) 50 mcg PRN Q2HR PRN IVP PAIN Last administ ered on 03/02/20at 20:29; Start 03/02/20 at 20:15; Stop 03/03/20 at 12:03; Status DC Diphenhydramine HCl (Benadryl) 25 mg PRN Q6HRS PRN IVP ITCHING Last administered on 03/02/20at 20:23; Start 03/02/20 at 20:15; Stop 03/03/20 at 12:03; Status DC Dextrose (Dextrose 50%-Water Syringe) 12.5 gm PRN Q15MIN PRN IV SEE COMMENTS; Start 03/02/20 at 21:30; Stop 03/03/20 at 12:03; Status DC Insulin Human Lispro (HumaLOG) 0-9 UNITS TIDWMEALS SQ ; Start 03/03/20 at 08:00; Stop 03/03/20 at 12:03; Status DC Sumatriptan Succinate (Imitrex) 6 mg 1X ONCE SQ Last administered on 03/02/20at 21:51; Start 03/02/20 at 21:45; Stop 03/02/20 at 21:46; Status DC Insulin Human Lispro (HumaLOG) 9 units 1X ONCE SQ Last administered on 03/02/20at 22:04; Start 03/02/20 at 21:45; Stop 03/02/20 at 21:46; Status DC Active Scripts Active Sumatriptan Succinate 25 Mg Tablet 25 Mg PO ONCE PRN 30 Days Benadryl (Diphenhydramine Hcl) 25 Mg Capsule 25 Mg PO Q6-8HRS PRN 30 Days Compazine (Prochlorperazine Maleate) 10 Mg Tablet 1 Tab PO Q6HRS 30 Days Tylenol (Acetaminophen) 325 Mg Tablet 650 Mg PO PRN Q4HRS PRN 30 Days Polyethylene Glycol 3350 17 Gm Powd.pack 17 Gm PO DAILY Reported Gabapentin 600 Mg Tablet 600 Mg PO HS Cymbalta (Duloxetine Hcl) 30 Mg Capsule.dr 1 Cap PO HS Clopidogrel (Clopidogrel Bisulfate) 75 Mg Tablet 1 Tab PO HS Novolog (Insulin Aspart) 100 Unit/1 Ml Cartridge Unknown Dose SQ TIDWMEALS Lantus Solostar (Insulin Glargine,Hum.rec.anlog) 100 Unit/1 Ml Insuln.pen 4 Unit SQ BID Omeprazole 20 Mg Capsule.dr 1 Cap PO HS Atorvastatin Calcium 40 Mg Tablet 1 Tab PO WEEKLY Aspirin 81 Mg Tab.chew 1 Tab PO HS Amlodipine Besylate 10 Mg Tablet 10 Mg PO HS Carvedilol 25 Mg Tablet 25 Mg PO BIDWMEALS Clonidine Hcl 0.2 Mg Tablet 0.4 Mg PO QHS Allergies Allergies: Coded Allergies: morphine (Verified Allergy, Severe, Nausea and Vomiting, 07/19/19) promethazine (Verified Allergy, Severe, Anaphylaxis, 12/19/19) Tolerates compazine, sob, "throat swelling" amoxicillin (Verified Allergy, Intermediate, Rash, 11/04/18) TOLERATES ZOSYN butorphanol (Verified Allergy, Intermediate, Itching, 02/14/19) Tolerates hydrocodone dexamethasone (Verified Allergy, Intermediate, Itching, 11/04/18) latex (Verified Allergy, Intermediate, Rash, 11/04/18) pregabalin (Verified Allergy, Intermediate, 04/27/19) gabapentin ok succinylcholine (Verified Allergy, Intermediate, 11/04/18) ROS Review of System Per HPI, rest of the ROS is negative Physical Exam Physical Exam General: NAD HEENT: moist/pink Lungs: Non labored, CTA Heart: S1S2, RRR Abdomen: Soft, No tenderness, No hepatosplenomegaly, No masses Extremities:Bilateral BKA, Prosthesis + Skin: No rashes, Neuro: grossly normal Psych/Mental Status: Mental status NL, Mood NL No connell Vital Signs Vital Signs Date Time Temp Pulse Resp B/P (MAP) Pulse Ox O2 Delivery O2 Flow Rate FiO2 03/03/20 11:07 97.5 85 20 167/88 (114) 99 Nasal Cannula 2.0 97.5 Assessment & Plan ESRD HD TTS , No indication for HD today , last HD was yesterday Migraine - primary following Anemia- On FABIAN 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 Failed kidney transplant x 2 HTN- Antihypertensives DC per primary Labs Labs Laboratory Tests Test 03/02/20 15:30 03/02/20 20:56 03/03/20 07:30 03/03/20 07:35 White Blood Count 2.8 x10^3/uL (4.0-11.0) 2.7 x10^3/uL (4.0-11.0) Red Blood Count 3.32 x10^6/uL (4.30-5.70) 3.05 x10^6/uL (4.30-5.70) Hemoglobin 10.6 g/dL (13.0-17.5) 9.8 g/dL (13.0-17.5) Hematocrit 31.9 % (39.0-53.0) 29.2 % (39.0-53.0) Mean Corpuscular Volume 96 fL (79-100) 96 fL (79-100) Mean Corpuscular Hemoglobin 32 pg (25-35) 32 pg (25-35) Mean Corpuscular Hemoglobin Concent 33 g/dL (31-37) 34 g/dL (31-37) Red Cell Distribution Width 18.6 % (11.5-14.5) 18.4 % (11.5-14.5) Platelet Count 137 x10^3/uL (140-400) 141 x10^3/uL (140-400) Neutrophils (%) (Auto) 74 % (31-73) 65 % (31-73) Lymphocytes (%) (Auto) 16 % (24-48) 22 % (24-48) Monocytes (%) (Auto) 6 % (0-9) 9 % (0-9) Eosinophils (%) (Auto) 3 % (0-3) 3 % (0-3) Basophils (%) (Auto) 1 % (0-3) 1 % (0-3) Neutrophils # (Auto) 2.1 x10^3/uL (1.8-7.7) 1.7 x10^3/uL (1.8-7.7) Lymphocytes # (Auto) 0.5 x10^3/uL (1.0-4.8) 0.6 x10^3/uL (1.0-4.8) Monocytes # (Auto) 0.2 x10^3/uL (0.0-1.1) 0.2 x10^3/uL (0.0-1.1) Eosinophils # (Auto) 0.1 x10^3/uL (0.0-0.7) 0.1 x10^3/uL (0.0-0.7) Basophils # (Auto) 0.0 x10^3/uL (0.0-0.2) 0.0 x10^3/uL (0.0-0.2) Sodium Level 130 mmol/L (136-145) 135 mmol/L (136-145) Potassium Level 3.8 mmol/L (3.5-5.1) 4.1 mmol/L (3.5-5.1) Chloride Level 92 mmol/L (98-107) 97 mmol/L (98-107) Carbon Dioxide Level 27 mmol/L (21-32) 29 mmol/L (21-32) Anion Gap 11 (6-14) 9 (6-14) Blood Urea Nitrogen 22 mg/dL (8-26) 36 mg/dL (8-26) Creatinine 4.5 mg/dL (0.7-1.3) 5.8 mg/dL (0.7-1.3) Estimated GFR (Cockcroft-Gault) 13.8 10.3 BUN/Creatinine Ratio 5 (6-20) Glucose Level 410 mg/dL (70-99) 162 mg/dL (70-99) Calcium Level 8.5 mg/dL (8.5-10.1) 8.9 mg/dL (8.5-10.1) Total Bilirubin 0.6 mg/dL (0.2-1.0) Aspartate Amino Transf (AST/SGOT) 18 U/L (15-37) Alanine Aminotransferase (ALT/SGPT) 13 U/L (16-63) Alkaline Phosphatase 204 U/L (46-116) Total Protein 9.0 g/dL (6.4-8.2) Albumin 3.5 g/dL (3.4-5.0) Albumin/Globulin Ratio 0.6 (1.0-1.7) Glucose (Fingerstick) 489 mg/dL (70-99) Phosphorus Level 4.6 mg/dL (2.6-4.7) Magnesium Level 2.2 mg/dL (1.8-2.4) Test 03/03/20 07:55 03/03/20 11:19 Glucose (Fingerstick) 134 mg/dL (70-99) 120 mg/dL (70-99) Laboratory Tests Test 03/02/20 15:30 03/02/20 20:56 03/03/20 07:30 03/03/20 07:35 White Blood Count 2.8 x10^3/uL (4.0-11.0) 2.7 x10^3/uL (4.0-11.0) Red Blood Count 3.32 x10^6/uL (4.30-5.70) 3.05 x10^6/uL (4.30-5.70) Hemoglobin 10.6 g/dL (13.0-17.5) 9.8 g/dL (13.0-17.5) Hematocrit 31.9 % (39.0-53.0) 29.2 % (39.0-53.0) Mean Corpuscular Volume 96 fL (79-100) 96 fL (79-100) Mean Corpuscular Hemoglobin 32 pg (25-35) 32 pg (25-35) Mean Corpuscular Hemoglobin Concent 33 g/dL (31-37) 34 g/dL (31-37) Red Cell Distribution Width 18.6 % (11.5-14.5) 18.4 % (11.5-14.5) Platelet Count 137 x10^3/uL (140-400) 141 x10^3/uL (140-400) Neutrophils (%) (Auto) 74 % (31-73) 65 % (31-73) Lymphocytes (%) (Auto) 16 % (24-48) 22 % (24-48) Monocytes (%) (Auto) 6 % (0-9) 9 % (0-9) Eosinophils (%) (Auto) 3 % (0-3) 3 % (0-3) Basophils (%) (Auto) 1 % (0-3) 1 % (0-3) Neutrophils # (Auto) 2.1 x10^3/uL (1.8-7.7) 1.7 x10^3/uL (1.8-7.7) Lymphocytes # (Auto) 0.5 x10^3/uL (1.0-4.8) 0.6 x10^3/uL (1.0-4.8) Monocytes # (Auto) 0.2 x10^3/uL (0.0-1.1) 0.2 x10^3/uL (0.0-1.1) Eosinophils # (Auto) 0.1 x10^3/uL (0.0-0.7) 0.1 x10^3/uL (0.0-0.7) Basophils # (Auto) 0.0 x10^3/uL (0.0-0.2) 0.0 x10^3/uL (0.0-0.2) Sodium Level 130 mmol/L (136-145) 135 mmol/L (136-145) Potassium Level 3.8 mmol/L (3.5-5.1) 4.1 mmol/L (3.5-5.1) Chloride Level 92 mmol/L (98-107) 97 mmol/L (98-107) Carbon Dioxide Level 27 mmol/L (21-32) 29 mmol/L (21-32) Anion Gap 11 (6-14) 9 (6-14) Blood Urea Nitrogen 22 mg/dL (8-26) 36 mg/dL (8-26) Creatinine 4.5 mg/dL (0.7-1.3) 5.8 mg/dL (0.7-1.3) Estimated GFR (Cockcroft-Gault) 13.8 10.3 BUN/Creatinine Ratio 5 (6-20) Glucose Level 410 mg/dL (70-99) 162 mg/dL (70-99) Calcium Level 8.5 mg/dL (8.5-10.1) 8.9 mg/dL (8.5-10.1) Total Bilirubin 0.6 mg/dL (0.2-1.0) Aspartate Amino Transf (AST/SGOT) 18 U/L (15-37) Alanine Aminotransferase (ALT/SGPT) 13 U/L (16-63) Alkaline Phosphatase 204 U/L (46-116) Total Protein 9.0 g/dL (6.4-8.2) Albumin 3.5 g/dL (3.4-5.0) Albumin/Globulin Ratio 0.6 (1.0-1.7) Glucose (Fingerstick) 489 mg/dL (70-99) Phosphorus Level 4.6 mg/dL (2.6-4.7) Magnesium Level 2.2 mg/dL (1.8-2.4) Test 03/03/20 07:55 03/03/20 11:19 Glucose (Fingerstick) 134 mg/dL (70-99) 120 mg/dL (70-99) Review All relevant outside records, renal labs, imaging studies, telemetry/EKG's were reviewed. BASSEM BUSBY MD Mar 03, 2020 14:16
[2020-03-07] MEDS ORDERED: ATORVASTATIN CALCIUM 40 MG TABLET. PO SCH (09:00)
--- NOTE | 2020-03-07 19:39 | PDOC3 ---
[facility]-Discharge Summary Date of Admission: Date of Admission: Mar 02, 2020 Date of Discharge: Date of Discharge: Mar 03, 2020 Discharge Diagnosis: Discharge Diagnosis: Hypertensive emergency Intractable migraine Pancytopenia due to ESRD Hyperglycemia uncontrolled History of diabetes mellitus Hospital Course: Hospital Course: 54 year old male with past medical history of diabetes mellitus, ESRD on HD, renal transplant x2 which have both failed and restarted dialysis in July 2018 who presents with the last 5 days he states he has had an intermittent left- sided headache that is throbbing but today is worse than usual. He states that he does get migraines but this feels worse he has never had he did go to dialysis today and his regulatory administrator is Dr. Coats. He does have light sensitivity and nausea. Patient does have left-sided neck pain and photophobia patient denies vomiting, diarrhea, fever, neck stiffness, chest pain, shortness of breath, cough, abdominal pain, back pain, dizziness, focal weakness. Patient is moving all extremities. Patient rates his pain a 10 out of 10. Patient symptoms improved by day of discharge. He will be discharged with a migraine cocktail as listed below. The rest of the hospital course was uneventful. Disposition: Disposition/Orders: D/C to Home Activity: Activity: Resume previous activity Diet: Diet: Renal Medications: Home Meds Active Scripts Sumatriptan Succinate (SUMATRIPTAN SUCCINATE) 25 Mg Tablet, 25 MG PO ONCE PRN for MIGRAINE HEADACHE for 30 Days, #30 TAB Prov:BRYNN TORRES MD 03/03/20 Diphenhydramine Hcl (BENADRYL) 25 Mg Capsule, 25 MG PO Q6-8HRS PRN for MIGRAINE HEADACHE for 30 Days, #120 CAP Prov:BRYNN TORRES MD 03/03/20 Prochlorperazine Maleate (Compazine) 10 Mg Tablet, 1 TAB PO Q6HRS for migraines for 30 Days, #120 TAB 0 Refills Prov:BRYNN TORRES MD 03/03/20 Acetaminophen (TYLENOL) 325 Mg Tablet, 650 MG PO PRN Q4HRS PRN for TEMP OVER 100.4F OR MILD PAIN for 30 Days, #60 TAB Prov:GRACIA BALDERRAMA MD 07/25/19 Polyethylene Glycol 3350 (POLYETHYLENE GLYCOL 3350) 17 Gm Powd.pack, 17 GM PO DAILY for constipation, #30 PKT Prov:PIYUSH SUERO MD 04/23/18 Reported Medications Gabapentin (GABAPENTIN) 600 Mg Tablet, 600 MG PO HS for NEUROGENIC PAIN, TAB 12/19/19 Duloxetine Hcl (CYMBALTA) 30 Mg Capsule., 1 CAP PO HS for RX, #30 CAP 5 Refills 12/19/19 Clopidogrel Bisulfate (CLOPIDOGREL) 75 Mg Tablet, 1 TAB PO HS for RX, #90 TAB 1 Refill 12/19/19 Insulin Aspart (NOVOLOG) 100 Unit/1 Ml Cartridge, SQ TIDWMEALS for DM, EACH 12/19/19 Insulin Glargine,Hum.rec.anlog (LANTUS SOLOSTAR) 100 Unit/1 Ml Insuln.pen, 4 UNIT SQ BID for DM, SYR 12/19/19 Omeprazole (OMEPRAZOLE) 20 Mg Capsule.dr, 1 CAP PO HS for GERD, #30 CAP 5 Refills 12/19/19 Atorvastatin Calcium (ATORVASTATIN CALCIUM) 40 Mg Tablet, 1 TAB PO WEEKLY for cholesterol, #30 TAB 5 Refills 12/19/19 Aspirin (ASPIRIN) 81 Mg Tab.chew, 1 TAB PO HS for heart health, #30 TAB 3 Refills 12/19/19 Amlodipine Besylate (AMLODIPINE BESYLATE) 10 Mg Tablet, 10 MG PO HS for HTN, TAB 12/19/19 Carvedilol (CARVEDILOL) 25 Mg Tablet, 25 MG PO BIDWMEALS for CARDIAC, TAB 04/17/18 Clonidine Hcl (CLONIDINE HCL) 0.2 Mg Tablet, 0.4 MG PO QHS for HTN, #60 TAB 5 Refills 04/17/18 Discontinued Reported Medications Cephalexin (KEFLEX) 500 Mg Capsule, 1 CAP PO TID for uti for 7 Days, #21 CAP 0 Refills started on Sunday12-14-2019 is to be on it for total of 7 days 12/19/19 Scheduled Amlodipine Besylate (Amlodipine Besylate), 10 MG PO HS, (Reported) Aspirin (Aspirin), 1 TAB PO HS, (Reported) Atorvastatin Calcium (Atorvastatin Calcium), 1 TAB PO WEEKLY, (Reported) Carvedilol (Carvedilol), 25 MG PO BIDWMEALS, (Reported) Clonidine Hcl (Clonidine Hcl), 0.4 MG PO QHS, (Reported) Clopidogrel Bisulfate (Clopidogrel), 1 TAB PO HS, (Reported) Duloxetine Hcl (Cymbalta), 1 CAP PO HS, (Reported) Gabapentin (Gabapentin), 600 MG PO HS, (Reported) Insulin Aspart (Novolog), Unknown Dose SQ TIDWMEALS, (Reported) Insulin Glargine,Hum.rec.anlog (Lantus Solostar), 4 UNIT SQ BID, (Reported) Omeprazole (Omeprazole), 1 CAP PO HS, (Reported) Polyethylene Glycol 3350 (Polyethylene Glycol 3350), 17 GM PO DAILY Prochlorperazine Maleate (Compazine), 1 TAB PO Q6HRS Scheduled PRN Acetaminophen (Tylenol), 650 MG PO PRN Q4HRS PRN for TEMP OVER 100.4F OR MILD PAIN Diphenhydramine Hcl (Benadryl), 25 MG PO Q6-8HRS PRN for MIGRAINE HEADACHE Sumatriptan Succinate (Sumatriptan Succinate), 25 MG PO ONCE PRN for MIGRAINE HEADACHE Discontinued Medications Cephalexin (Keflex), 1 CAP PO TID, (Reported) Total Time: Total Time: Total time spent was 35 minutes in preparing scripts, discharge planning with SW and RN, and preparing this discharge summary. Patient seen and examined on day of discharge. Justicifation of Admission Dx: Justifications for Admission: Justification of Admission Dx: N/A BRYNN TORRES MD Mar 07, 2020 19:39
== END 2020-03-03 12:03 | disposition home or self-care (01) ==
LOC: ER 13:51 → INTOOBSV 17:00 → 4 NORTH 17:00 → ER 18:12
PROVIDERS: ADMIT Internal Medicine; ATTEND Internal Medicine
DX: I16.1 Hypertensive emergency (principal); G43.911 Migraine, unspecified, intractable, with status migrainosus; D61.818 Other pancytopenia; I12.0 Hypertensive chronic kidney disease with stage 5 chronic kidney disease or end stage renal disease; N18.6 End stage renal disease; E10.22 Type 1 diabetes mellitus with diabetic chronic kidney disease; I25.10 Atherosclerotic heart disease of native coronary artery without angina pectoris; E78.5 Hyperlipidemia, unspecified; J18.9 Pneumonia, unspecified organism; Z79.4 Long term (current) use of insulin; Z99.2 Dependence on renal dialysis; Z94.0 Kidney transplant status; Z89.519 Acquired absence of unspecified leg below knee
CPT/HCPCS: 36415; 70450; 72125; 80048; 80053; 82962; 83735; 84100; 85025; 96372; 96374; 96375; 96376; 97161; 97165; 97530; 97535; 99284; 99285; G0378; J0780; J1200; J1815; J2405; J3010; J3030; J3490; G0379

== ENCOUNTER → 2020-07-07 | Outpatient (CLI) | payer OTHER ==
[2020-03-28 14:52] VITALS: BP 106/41
[~2020-07-07] MED LIST changes: +DIPH25CA58 PO; -POLY17PO28 PO; +POLY17PO52 PO; +PROC10TA57 PO; +SUMA100T3 PO; +SUMA25TA4 PO; +TOPI25TA7 PO; +TRAM100T36 PO; +WARF4TAB64 PO
--- NOTE | 2020-07-07 12:11 | RAD ---
Magnetic resonance angiography BRAIN WO 07/07/2020 9:45 AM INDICATION: Dural venous sinus thrombosis COMPARISON: MRA head 03/25/2020 TECHNIQUE: Noncontrast [id number] magnetic resonance venography of the intracranial vessels perf ormed. Maximum intensity projection images are provided. FINDINGS: Superior sagittal sinus is patent. There is loss of flow-related signal immediately proximal to the t orcula. Straight sinus and internal cerebral veins appear patent. Flow related enhancement is identif ied within the sigmoid sinuses and transverse sinuses. There is asymmetric narrowing of the right tra nsverse sinus which could be secondary to stenosis. Findings are similar to the prior examination. IMPRESSION: There is loss of normal flow related enhancement involving the superior sagittal sinus immediately pr oximal to the torcula. Findings could be associated with slow flow versus chronic thrombus. Additiona lly, narrowing of the right transverse sinus appears chronic and could be associated with stenosis. F indings may be confirmed with CT venography. Electronically signed by: Britany Stephen MD (07/07/2020 12:09 PM) [id number]
== END ==
LOC: MRI 09:33
PROVIDERS: ATTEND Nurse Practitioner Family
DX: G08 Intracranial and intraspinal phlebitis and thrombophlebitis (principal)
CPT/HCPCS: 70544